=== PATIENT | male | born 1960 | race African-American/Black ===

== ENCOUNTER 2018-04-29 15:30 | Inpatient (IN) | payer MEDICAID ==
[~2018-04-29] VITALS: Ht 175.3 cm; Wt 130.7 kg
[2018-04-29] VITALS (11 sets, daily range): BP systolic 83–168; BP diastolic 45–71
[2018-04-29] MEDS ORDERED: Vancomycin 1.5gm/D5W 250ml 325 ML IVPB ONE (15:45)
[2018-04-29] MEDS ORDERED: Cefepime HCl 2 GM in NS 110 ML IV SCH (15:45)
[2018-04-29] MEDS ORDERED: PENTOXIFYLLINE400 MG ORAL (15:57)
[2018-04-29] MEDS ORDERED: ASCORBIC ACID500 M4 ORAL (15:57)
[2018-04-29] MEDS ORDERED: MAGNESIUM400 M2 PO (15:57)
[2018-04-29] MEDS ORDERED: NORCO 5-325 TA1 EACH ORAL (15:57)
[2018-04-29] MEDS ORDERED: LACTULOSE20 GM/301 ORAL (15:57)
[2018-04-29] MEDS ORDERED: FUROSEMIDE40 MG ORAL (15:57)
[2018-04-29] MEDS ORDERED: MULTIVITAMINS1 EAC2 ORAL (15:57)
[2018-04-29] MEDS ORDERED: ZINC SULFATE220 M1 ORAL (15:57)
[2018-04-29] MEDS ORDERED: BETA CAROT25000 UNIT PO (15:57)
[2018-04-29] MEDS ORDERED: SPIRONOLACTONE100 MG ORAL (15:57)
[2018-04-29 16:09] LABS: HEMATOCRIT 33.6 % (42.0-52.0); HEMOGLOBIN 11.1 G/DL (14.2-18.0); MEAN CORPUSCULAR VOLUME 93 FL (80-99); PLATELET COUNT 74 K/UL (150-450); RED BLOOD COUNT 3.61 M/UL (4.70-6.10); WHITE BLOOD COUNT 6.3 K/UL (4.8-10.8)
[2018-04-29 16:10] LABS: ANION GAP 16 mmol/L (5-15); BLOOD UREA NITROGEN 13 mg/dL (7-18); CALCIUM 8.6 MG/DL (8.5-10.1); CARBON DIOXIDE 17 MMOL/L (21-32); CHLORIDE 98 MMOL/L (98-107); CREATININE 1.4 MG/DL (0.55-1.30); POTASSIUM 3.7 MMOL/L (3.5-5.1); SODIUM 131 MMOL/L (136-145)
[2018-04-29 16:11] LABS: APPEARANCE,URINE CLEAR; BILIRUBIN, URINE 2+ (NEGATIVE); COLOR,URINE BROWN; GLUCOSE, URINE (UA) NEGATIVE (NEGATIVE); KETONES,URINE 2+ (NEGATIVE); LEUKOCYTE ESTERASE ,URINE 1+ (NEGATIVE); NITRITE,URINE POSITIVE (NEGATIVE); PH,URINE 5 (4.5-8.0); PROTEIN,URINE 1+ (NEGATIVE); UROBILINOGEN,URINE 8 MG/DL (0.0-1.0)
[2018-04-29 16:24] LABS: ALANINE AMINOTRANSFERASE 28 U/L (12-78); ALBUMIN 1.9 G/DL (3.4-5.0); ALBUMIN/GLOBULIN RATIO 0.4 (1.0-2.7); ALKALINE PHOSPHATASE 95 U/L (46-116); ASPARTATE AMINO TRANSFERASE 49 U/L (15-37); BILIRUBIN,TOTAL 12.6 MG/DL (0.2-1.0); CREATINE KINASE 223 U/L (26-308)
--- NOTE | 2018-04-29 16:25 | Diagnostic Imaging Report ---
Indication: Dyspnea Comparison: None A single view chest radiograph was obtained. Findings: Cardiomediastinal appearance is within normal limits for age and projection. Lung volumes are low. Pulmonary vascularity is appropriate. The diaphragmatic contour is smooth and costophrenic angles are sharp. No pleural effusions are identified. The bones are osteopenic. Impression: No acute findings
[2018-04-29 16:27] LABS: INR 2.6 (0.9-1.1)
[2018-04-29 16:28] LABS: BILIRUBIN,DIRECT 4.5 MG/DL (0.0-0.3)
[2018-04-29] MEDS ORDERED: Isovue-300 100ml vial INJ PRN (16:30)
[2018-04-29] MEDS ORDERED: NS IVLG ONE (16:30)
[2018-04-29] MEDS ORDERED: Isovue-370 150ml vial INJ PRN (16:30)
[2018-04-29] MEDS ORDERED: Etomidate 40mg/20ml Inj IV ONE (17:00)
[2018-04-29] MEDS ORDERED: Succinylcholine 20mg/ml 10ml vial IV ONE (17:00)
--- NOTE | 2018-04-29 17:35 | Emergency Room Report ---
History of Present Illness General Chief Complaint: Altered Level of Consciousness Source: Medical Record Present Illness HPI Mr. Avendaño is a 57 yo male with hx of alcohol cirrhosis, cellulitis, chronic leg wound, coagulopathy, anemia, hepatic encephalopathy and lactic acidosis who presents from a transitional care facililty with altered mental status. Patient has unintelligible repetitive speech. He will follow limited commands. Patient is not be able to give hx. Hx obtained from documentation from [facility]. Patient is from [place]. He was referred to [facility] for evaluation for liver transplant according to documentation. Allergies: Coded Allergies: No Known Allergies (Unverified , 04/29/18) Patient History Past Medical History: see triage record, old chart reviewed Past Surgical History: none, other - according to documentation Social History: Reports: alcohol use - last alcoholic drink August according to documentation Review of Systems All Other Systems: limited - altered mental status, patient is severely ill Physical Exam Vital Signs Date Time Temp Pulse Resp B/P (MAP) Pulse Ox O2 Delivery O2 Flow Rate FiO2 04/29/18 15:35 99.0 86 20 120/80 97 Room Air 99.0 04/29/18 16:55 50 Sp02 EP Interpretation: reviewed, normal General Appearance: severe distress, lethargic, other - toxic with severe work of breathing grunting, able to say name and only a few words, Stupor Eyes: bilateral eye PERRL, bilateral eye EOMI, bilateral eye scleral icterus ENT: normal pharynx, dry mucus membranes, other - harsh voice Neck: normal inspection, full range of motion, supple Respiratory: respiratory distress, decreased breath sounds, accessory muscle use - abdominal retractions Cardiovascular #1: no gallop, no murmur, tachycardia, edema - tense pitting edema 2+ Gastrointestinal: soft, no guarding, distended Musculoskeletal: other - capillary refill > 5 seconds Neurologic: oriented - oriented to name only, moves all extremities Psychiatric: other - delirious Skin: rash, other - several large ulcers right lower extremity with right lower leg erythematous Procedures Critical Care Time Critical Care Time 100 minutes of critical care time excluding procedures were used in the care of the patient. I reviewed labs and imaging. I reviewed previous electronic medical record.. I spoke with admitting physician. Patient required multiple reassessments and multiple interventions. Intubation Intubation : Consent: Emergent Intubation Method: orotracheal Tube Size (cm): 8.0 Medications: Etomidate, Succinylcholine Breath Sounds after Intubation: right greater than left Intubation Complications: O2 saturation decreased Post Intubation Xray: Yes Attempts: Other - two attempts, second attempt successful Patient Tolerated: Well Complications: Other - desaturation, Progress patient required ventilation with oral airway and BVM in between first and second attempt with glidoscope. Second attempt was successful Additional Procedure Procedure Narrative Nurse requested bolus of propofol. I personally administered 100 mg of diprivan for additional sedation on patient while intubated Medical Decision Making Diagnostic Impression: Primary Impression: Cellulitis Additional Impressions: Lactic acid acidosis Acute encephalopathy Acute respiratory failure without hypercapnia Cirrhosis of liver ER Course Mr. Avendaño presents with altered mental status and severe work of breathing. Required intubation after initial resuscitation attempt. 1. altered mental status with hx of hepatic encephaloplathy, ammonia level does not entirely account for severity of presentation, encephalopathy multifactorial with severe metabolic acidosis 2. lactic acidosis normal WBC, with previous hx. must consider sepsis and other causes such as severe liver dysfunction, brown stool on rectal exam, IVF given with caution with anasarca prior to intubation, I felt patient would be at high risk for pulmonary edema, total 3 liters given in ED with airway secured , Sepsis due to peritonitis? or HCAP 3. right leg cellulitis with chronic leg wound 4. cirrhosis, presumed alcoholic liver cirrhosis, jaundice, coagulopathy, anasarca, ascites, encephalopathy 5. infiltrative process on CXR and CT: patient covered for HCAP on arrival with broad spectrum abx possible aspiration I personally reviewed XR images, second XR with left sided infiltrate, CTA + infiltrate no PE CT head without acute process CT a/p:Cirrhosis with evidence of portal hypertension including splenomegaly and recanalized umbilical vein and esophageal varices. Large-volume ascites. Fluid also distends a left indirect inguinal hernia Dr. Oliva agreed to admit patient to ICU Labs Test 04/29/18 15:40 04/29/18 15:58 04/29/18 17:30 04/29/18 19:18 White Blood Count 6.3 K/UL (4.8-10.8) Red Blood Count 3.61 M/UL (4.70-6.10) Hemoglobin 11.1 G/DL (14.2-18.0) Hematocrit 33.6 % (42.0-52.0) Mean Corpuscular Volume 93 FL (80-99) Mean Corpuscular Hemoglobin 30.8 PG (27.0-31.0) Mean Corpuscular Hemoglobin Concent 33.2 G/DL (32.0-36.0) Red Cell Distribution Width 12.0 % (11.6-14.8) Platelet Count 74 K/UL (150-450) Mean Platelet Volume 6.8 FL (6.5-10.1) Neutrophils (%) (Auto) % (45.0-75.0) Lymphocytes (%) (Auto) % (20.0-45.0) Monocytes (%) (Auto) % (1.0-10.0) Eosinophils (%) (Auto) % (0.0-3.0) Basophils (%) (Auto) % (0.0-2.0) Differential Total Cells Counted 100 Neutrophils % (Manual) 63 % (45-75) Lymphocytes % (Manual) 15 % (20-45) Monocytes % (Manual) 6 % (1-10) Eosinophils % (Manual) 0 % (0-3) Basophils % (Manual) 0 % (0-2) Band Neutrophils 16 % (0-8) Platelet Estimate Decreased Platelet Morphology Normal Hypochromasia 1+ Anisocytosis 1+ Prothrombin Time 25.6 SEC (9.30-11.50) Prothromb Time International Ratio 2.6 (0.9-1.1) Activated Partial Thromboplast Time 51 SEC (23-33) Urine Color Brown Urine Appearance Clear Urine pH 5 (4.5-8.0) Urine Specific [place] 1.020 (1.005-1.035) Urine Protein 1+ (NEGATIVE) Urine Glucose (UA) Negative (NEGATIVE) Urine Ketones 2+ (NEGATIVE) Urine Blood 1+ (NEGATIVE) Urine Nitrite Positive (NEGATIVE) Urine Bilirubin 2+ (NEGATIVE) Urine Ictotest Positive (NEGATIVE) Urine Urobilinogen 8 MG/DL (0.0-1.0) Urine Leukocyte Esterase 1+ (NEGATIVE) Urine RBC 5-10 /HPF (0 - 0) Urine WBC 2-4 /HPF (0 - 0) Urine Squamous Epithelial Cells None /LPF (NONE/OCC) Urine Amorphous Sediment Few /LPF (NONE) Urine Bacteria Few /HPF (NONE) Sodium Level 131 MMOL/L (136-145) Potassium Level 3.7 MMOL/L (3.5-5.1) Chloride Level 98 MMOL/L (98-107) Carbon Dioxide Level 17 MMOL/L (21-32) Anion Gap 16 mmol/L (5-15) Blood Urea Nitrogen 13 mg/dL (7-18) Creatinine 1.4 MG/DL (0.55-1.30) Estimat Glomerular Filtration Rate > 60 mL/min (>60) Glucose Level 86 MG/DL (74-106) Lactic Acid Level 11.40 mmol/L (0.4-2.0) 13.50 mmol/L (0.66-2.22) Calcium Level 8.6 MG/DL (8.5-10.1) Total Bilirubin 12.6 MG/DL (0.2-1.0) Direct Bilirubin 4.5 MG/DL (0.0-0.3) Aspartate Amino Transf (AST/SGOT) 49 U/L (15-37) Alanine Aminotransferase (ALT/SGPT) 28 U/L (12-78) Alkaline Phosphatase 95 U/L (46-116) Ammonia 61 umol/L (11-32) Total Creatine Kinase 223 U/L (26-308) Troponin I 0.034 ng/mL (0.000-0.056) Total Protein 7.0 G/DL (6.4-8.2) Albumin 1.9 G/DL (3.4-5.0) Globulin 5.1 g/dL Albumin/Globulin Ratio 0.4 (1.0-2.7) Arterial Blood pH 7.420 (7.350-7.450) 7.287 (7.350-7.450) Arterial Blood Partial Pressure CO2 21.7 mmHg (35.0-45.0) 34.6 mmHg (35.0-45.0) Arterial Blood Partial Pressure O2 74.7 mmHg (75.0-100.0) 96.6 mmHg (75.0-100.0) Arterial Blood HCO3 13.8 mmol/L (22.0-26.0) 16.2 mmol/L (22.0-26.0) Arterial Blood Oxygen Saturation 94.6 % (92.0-98.0) 96.5 % (92.0-98.0) Arterial Blood Base Excess -8.8 -9.5 Johan Test Positive Positive Triglycerides Level 41 MG/DL (30-150) EKG Diagnostic Results EKG Time: 15:28 EP Interpretation: sinus tachyardia nl axis prolonged QTc no ST elevation low QRS voltage Rate: tachycardiac Other Impression no ST elevation no signficant Q waves Chest X-Ray Diagnostic Results Chest X-Ray Diagnostic Results : Chest X-Ray Ordered: Yes # of Views/Limited/Complete: 1 View Indication: Shortness of Breath EP Interpretation: Yes Interpretation: no consolidation, no pneumothorax Impression: Other - poor inspiratory effort Electronically Signed by: This image has been electronically signed by Dr. Es Elise Last Vital Signs Date Time Temp Pulse Resp B/P (MAP) Pulse Ox O2 Delivery O2 Flow Rate FiO2 04/29/18 17:14 144 16 50 04/29/18 17:13 178/86 Mechanical Ventilator 04/29/18 16:00 99.9 100 99.9 Disposition: ADMITTED INPATIENT Condition: Serious Referrals: NOT CHOSEN IPA/,REFERRING (PCP) Es Elise MD Apr 29, 2018 17:35
[2018-04-29] MEDS ORDERED: MULTIVITAMINS1 EA13 ORAL (17:49)
--- NOTE | 2018-04-29 18:03 | Diagnostic Imaging Report ---
EXAM: XR Chest, 1 View CLINICAL HISTORY: SOB TECHNIQUE: Frontal view of the chest. COMPARISON: 05/09/18 at 1549. FINDINGS/IMPRESSION: Interval intubation. The tip of the ET tube projects 2 cm above the pamela. Hypoventilatory lungs with worsening left greater than right perihilar and basilar airspace consolidation.
--- NOTE | 2018-04-29 19:23 | Diagnostic Imaging Report ---
EXAM: CT Angiography Chest With Intravenous Contrast CLINICAL HISTORY: ALOC TECHNIQUE: Axial computed tomographic angiography images of the chest with intravenous contrast using pulmonary embolism protocol. CTDI is 40.33 mGy and DLP is 957.93 mGy-cm One or more of the following dose reduction techniques were used: automated exposure control, adjustment of the mA and/or kV according to patient size, use of iterative reconstruction technique. MIP reconstructed images were created and reviewed. COMPARISON: No relevant prior studies available. FINDINGS: Poor bolus timing. No definite central PE. No aortic dissection. The endotracheal tube tip projects 1.5 cm above the pamela. Extensive lower lobe consolidation and trace pleural effusions. Cardiomegaly with coronary atherosclerosis. Body wall edema/anasarca. Upper abdominal findings described in separate CT abdomen and pelvis report. IMPRESSION: No clear central PE on technically limited study. Extensive basilar consolidation. Tip of ET tube projects 1.5 cm above the pamela Cardiomegaly and CAD.
[2018-04-29] MEDS ORDERED: Propofol 200mg/20ml IV ONE (19:30)
--- NOTE | 2018-04-29 19:39 | Diagnostic Imaging Report ---
EXAM: CT Abdomen and Pelvis With Intravenous Contrast CLINICAL HISTORY: ALOC TECHNIQUE: Axial computed tomography images of the abdomen and pelvis with intravenous contrast. CTDI is 19.95 mGy and DLP is 1535 mGy-cm One or more of the following dose reduction techniques were used: automated exposure control, adjustment of the mA and/or kV according to patient size, use of iterative reconstruction technique. COMPARISON: No relevant prior studies available. FINDINGS: Chest findings described in separate report. Cirrhosis with evidence of portal hypertension including splenomegaly and recanalized umbilical vein and esophageal varices. Large-volume ascites. Fluid also distends a left indirect inguinal hernia. Colonic diverticula. No definitive findings of diverticulitis, though free fluid markedly limits sensitivity. No GI or urinary tract obstruction. Suspect a normal appendix. Aortoiliac atherosclerosis without aneurysm. Body wall edema/anasarca. No acute fracture. IMPRESSION: Cirrhosis with evidence of portal hypertension. Large-volume ascites. Colonic diverticula. Exam is insensitive for acute inflammation due to ascites and generalized edema/anasarca.
--- NOTE | 2018-04-29 20:21 | Diagnostic Imaging Report ---
EXAM: CT Head Without Intravenous Contrast CLINICAL HISTORY: ALOC TECHNIQUE: Axial computed tomography images of the head/brain without intravenous contrast. CTDI is 70.38 mGy and DLP is 2//04 mGy-cm One or more of the following dose reduction techniques were used: automated exposure control, adjustment of the mA and/or kV according to patient size, use of iterative reconstruction technique. COMPARISON: No relevant prior studies available. FINDINGS: Brain: Examination is somewhat limited by motion. There is no clear evidence of acute intracranial hemorrhage. No mass effect. No definite acute large vessel territorial infarction. Mild involutional change. Ventricles: Unremarkable. No ventriculomegaly. Bones/joints: Unremarkable. No acute fracture. Soft tissues: Unremarkable. Sinuses: Unremarkable as visualized. No acute sinusitis. Mastoid air cells: Unremarkable as visualized. No mastoid effusion. IMPRESSION: No acute intracranial process on motion limited exam.
--- NOTE | 2018-04-29 21:59 | History and Physical ---
History of Present Illness General Date patient seen: Apr 29, 2018 Time patient seen: 23:00 Reason for Hospitalization: Sepsis, acute encephalopahy, acute respiratory failure Present Illness HPI 57 yo man with a history of alcohol cirrhosis, cellulitis, chronic leg wound, coagulopathy, anemia, and hepatic encephalopathy and lactic acidosis who presents from a transitional care facililty with altered mental status. Patient has unintelligible repetitive speech. He will follow limited commands. Patient is not be able to give history. Medical history obtained from ED physician and documentation from [facility]. Patient is from [place]. He was referred to [facility] for evaluation for liver transplant according to documentation in ED, patient became progressively somnolent and obtunded and was intubated for acute respiratory failure He was hypotensive requiring several liters of IVF's Admitted to the ICU PMHx: As per HPI FHx: Unable to assess secondary to patient's condition SHx: + EtOH abuse; patient from [place] lives in transitional care facility Allergies: Coded Allergies: No Known Allergies (Unverified , 04/29/18) Medication History Scheduled Ascorbic Acid* (Ascorbic Acid*), 500 MG ORAL DAILY, (Reported) Furosemide* (Lasix*), 40 MG ORAL DAILY, (Reported) Multivitamin with Minerals (Multivitamins with Minerals), 1 TAB ORAL DAILY, ( Reported) Spironolactone* (Spironolactone*), 25 MG ORAL DAILY, (Reported) Zinc Sulfate (Zinc Sulfate*), 220 MG ORAL DAILY, (Reported) Scheduled PRN Hydrocodone Bit/Acetaminophen 5-325* (Harshaw 5-325*), 1 TAB ORAL Q6H PRN for For Pain, (Reported) Miscellaneous Medications Beta-Carotene (Beta Carotene), 25,000 UNIT PO, (Reported) Lactulose (Lactulose*), 30 ML ORAL, (Reported) Magnesium Oxide (Magnesium), 400 MG PO, (Reported) Pentoxifylline* (Trental*), 400 MG ORAL, (Reported) Discontinued Medications Multivitamins* (Multivitamins*), 1 TAB ORAL DAILY, (Reported) Discontinued Reason: Prescription changed Patient History Limited by: medical condition History Provided By: Medical Record, PMD Healthcare decision maker none listed Resuscitation status Full Code Advanced Directive on File No Review of Systems ROS Narrative Unable secondary to patient's condition Physical Exam General Appearance: severe distress Lines, tubes and drains: peripheral HEENT: normocephalic, atraumatic Neck: supple Respiratory/Chest: rhonchi - bilaterally Cardiovascular/Chest: tachycardia Abdomen: distended Extremities: inflammation, slow capillary refill Skin Exam: cyanotic, palled Neurologic: unresponsiveness Lymphatic: anterior cervical, posterior cervical (L) Musculoskeletal: atrophy Last 24 Hour Vital Signs Date Time Temp Pulse Resp B/P (MAP) Pulse Ox O2 Delivery O2 Flow Rate FiO2 04/29/18 21:05 117 28 50 04/29/18 20:50 122 04/29/18 20:49 50 04/29/18 20:47 99.6 122 22 90/50 (63) 97 99.6 04/29/18 20:40 98.0 135 25 94/52 100 Mechanical Ventilator 50 04/29/18 19:54 24 89/47 Mechanical Ventilator 50 04/29/18 19:52 125 33 83/47 94 Mechanical Ventilator 50 04/29/18 19:40 24 94/51 Mechanical Ventilator 50 04/29/18 19:38 32 Mechanical Ventilator 50 04/29/18 19:25 24 152/83 Mechanical Ventilator 50 04/29/18 19:10 24 132/67 Mechanical Ventilator 50 04/29/18 19:04 144 38 50 04/29/18 19:00 140 25 136/64 90 Mechanical Ventilator 50 04/29/18 18:55 24 138/64 Mechanical Ventilator 50 04/29/18 18:28 24 155/75 Mechanical Ventilator 50 04/29/18 18:13 24 165/82 Mechanical Ventilator 04/29/18 18:00 99.9 140 25 168/71 100 Mechanical Ventilator 50 99.9 04/29/18 17:58 24 168/71 Mechanical Ventilator 04/29/18 17:43 25 167/83 Mechanical Ventilator 04/29/18 17:28 25 173/80 Mechanical Ventilator 04/29/18 17:14 144 16 50 04/29/18 17:13 25 178/86 Mechanical Ventilator 50 04/29/18 16:55 50 04/29/18 16:00 99.9 129 26 126/68 100 Room Air 99.9 04/29/18 15:35 99.0 86 20 120/80 97 Room Air 99.0 Laboratory Tests Test 04/29/18 15:40 04/29/18 15:58 04/29/18 17:30 04/29/18 19:18 White Blood Count 6.3 K/UL (4.8-10.8) Red Blood Count 3.61 M/UL (4.70-6.10) L Hemoglobin 11.1 G/DL (14.2-18.0) L Hematocrit 33.6 % (42.0-52.0) L Mean Corpuscular Volume 93 FL (80-99) Mean Corpuscular Hemoglobin 30.8 PG (27.0-31.0) Mean Corpuscular Hemoglobin Concent 33.2 G/DL (32.0-36.0) Red Cell Distribution Width 12.0 % (11.6-14.8) Platelet Count 74 K/UL (150-450) L Mean Platelet Volume 6.8 FL (6.5-10.1) Neutrophils (%) (Auto) % (45.0-75.0) Lymphocytes (%) (Auto) % (20.0-45.0) Monocytes (%) (Auto) % (1.0-10.0) Eosinophils (%) (Auto) % (0.0-3.0) Basophils (%) (Auto) % (0.0-2.0) Differential Total Cells Counted 100 Neutrophils % (Manual) 63 % (45-75) Lymphocytes % (Manual) 15 % (20-45) L Monocytes % (Manual) 6 % (1-10) Eosinophils % (Manual) 0 % (0-3) Basophils % (Manual) 0 % (0-2) Band Neutrophils 16 % (0-8) H Platelet Estimate Decreased L Platelet Morphology Normal Hypochromasia 1+ Anisocytosis 1+ Prothrombin Time 25.6 SEC (9.30-11.50) H Prothromb Time International Ratio 2.6 (0.9-1.1) H Activated Partial Thromboplast Time 51 SEC (23-33) H Urine Color Brown Urine Appearance Clear Urine pH 5 (4.5-8.0) Urine Specific [place] 1.020 (1.005-1.035) Urine Protein 1+ (NEGATIVE) H Urine Glucose (UA) Negative (NEGATIVE) Urine Ketones 2+ (NEGATIVE) H Urine Blood 1+ (NEGATIVE) H Urine Nitrite Positive (NEGATIVE) H Urine Bilirubin 2+ (NEGATIVE) H Urine Ictotest Positive (NEGATIVE) Urine Urobilinogen 8 MG/DL (0.0-1.0) H Urine Leukocyte Esterase 1+ (NEGATIVE) H Urine RBC 5-10 /HPF (0 - 0) H Urine WBC 2-4 /HPF (0 - 0) Urine Squamous Epithelial Cells None /LPF (NONE/OCC) Urine Amorphous Sediment Few /LPF (NONE) H Urine Bacteria Few /HPF (NONE) Sodium Level 131 MMOL/L (136-145) L Potassium Level 3.7 MMOL/L (3.5-5.1) Chloride Level 98 MMOL/L (98-107) Carbon Dioxide Level 17 MMOL/L (21-32) L Anion Gap 16 mmol/L (5-15) H Blood Urea Nitrogen 13 mg/dL (7-18) Creatinine 1.4 MG/DL (0.55-1.30) H Estimat Glomerular Filtration Rate > 60 mL/min (>60) Glucose Level 86 MG/DL (74-106) Lactic Acid Level 11.40 mmol/L (0.4-2.0) H 13.50 mmol/L (0.66-2.22) H Calcium Level 8.6 MG/DL (8.5-10.1) Total Bilirubin 12.6 MG/DL (0.2-1.0) H Direct Bilirubin 4.5 MG/DL (0.0-0.3) H Aspartate Amino Transf (AST/SGOT) 49 U/L (15-37) H Alanine Aminotransferase (ALT/SGPT) 28 U/L (12-78) Alkaline Phosphatase 95 U/L (46-116) Ammonia 61 umol/L (11-32) H Total Creatine Kinase 223 U/L (26-308) Troponin I 0.034 ng/mL (0.000-0.056) Total Protein 7.0 G/DL (6.4-8.2) Albumin 1.9 G/DL (3.4-5.0) L Globulin 5.1 g/dL Albumin/Globulin Ratio 0.4 (1.0-2.7) L Urine Opiates Screen Negative (NEGATIVE) Urine Barbiturates Screen Negative (NEGATIVE) Phencyclidine (PCP) Screen Negative (NEGATIVE) Urine Amphetamines Screen Negative (NEGATIVE) Urine Benzodiazepines Screen Negative (NEGATIVE) Urine Cocaine Screen Negative (NEGATIVE) Urine Marijuana (THC) Screen Negative (NEGATIVE) Arterial Blood pH 7.420 (7.350-7.450) 7.287 (7.350-7.450) Arterial Blood Partial Pressure CO2 21.7 mmHg (35.0-45.0) *L 34.6 mmHg (35.0-45.0) L Arterial Blood Partial Pressure O2 74.7 mmHg (75.0-100.0) L 96.6 mmHg (75.0-100.0) Arterial Blood HCO3 13.8 mmol/L (22.0-26.0) L 16.2 mmol/L (22.0-26.0) L Arterial Blood Oxygen Saturation 94.6 % (92.0-98.0) 96.5 % (92.0-98.0) Arterial Blood Base Excess -8.8 -9.5 Johan Test Positive Positive Triglycerides Level 41 MG/DL (30-150) Height (Feet): 5 Height (Inches): 9.00 Weight (Pounds): 296 Medications Current Medications Medications (Trade) Dose Ordered Sig/Ry Route PRN Reason Start Time Stop Time Status Last Admin Dose Admin Barium Sulfate (Readi-Cat 2) 450 ml NOW PRN ORAL Radiology Procedure 04/29/18 16:30 05/01/18 16:22 Cefepime HCl 2 gm/ Sodium Chloride 110 ml @ 220 mls/hr Q8H IV 04/29/18 15:45 04/30/18 15:44 04/29/18 16:09 Iopamidol (Isovue-300 100ml) 100 ml NOW PRN INJ Radiology Procedure 04/29/18 16:30 Iopamidol (Isovue-370 150ml) 150 ml NOW PRN INJ Radiology Procedure 04/29/18 16:30 05/01/18 16:23 Levofloxacin 150 ml @ 150 mls/hr Q24H IV 04/29/18 15:45 04/30/18 15:44 04/29/18 17:43 Pantoprazole (Protonix) 40 mg DAILY IVP 04/30/18 09:00 05/30/18 08:59 UNV Propofol 100 ml @ 0 mls/hr Q24H IV 04/29/18 17:00 05/01/18 16:59 04/29/18 17:13 Assessment/Plan Status: deteriorating Status Narrative 57 yo man with decompensated cirrhosis and septic shock with acute respiratory failure Assessment/Plan #Septic Shock/severe sepsis- with acute encephalopathy, acute kidney failure and acute respiratory failure #suspect SBP # Cellulitis possible source -Lactic acid elevated; BP decreased -Aggressive IVF's -Pulmonary consult -Continue broad spectrum IV antibiotics -ID consult #Cirrhosis, decompensated #End stage liver disease #coagulopathy -Gastroenterology consult -paracentesis with peritoneal fluid analysis #[id number] -Likely secondary to sepsis/hypovolemia -continue IVF's #acute encephalopathy -Likely secondary to septic shock -On propofol currently given intubation DVT Prophylaxis: SCD's Code Status: Full Hospital Classification declaration: Based on this initial evaluation and depending on the patient's clinical course I anticipate that this patient will require hospitalization for at least 2-3 days Disposition: Once the patient is stable to leave the hospital I anticipate the patient will likely be discharged to the following environment: Home I have personally performed a history, physical exam, and my own medical decision making. Upon my evaluation, this patient had a high probability of imminent or life- threatening deterioration due to severe sepsis and acute respiratory failure, which required my direct attention, intervention, and personal management. I have personally provided 50 minutes of critical care time exclusive of time spent on separately billable procedures. Time includes review of laboratory data , radiology results, discussion with consultants, and monitoring for potential decompensation. Interventions were performed as documented above. Time of note may not reflect time of encounter Jax Oliva MD Apr 29, 2018 21:59
[2018-04-30] VITALS (32 sets, daily range): BP systolic 84–145; BP diastolic 39–91
[2018-04-30] MEDS ORDERED: Cefepime HCl 2 GM in D5W 55 ML IVPB SCH (04:00)
[2018-04-30] MEDS ORDERED: Vancomycin 1500mg IVPB SCH (04:00)
[2018-04-30 05:12] LABS: HEMATOCRIT 27.4 % (42.0-52.0); HEMOGLOBIN 9.6 G/DL (14.2-18.0); MEAN CORPUSCULAR VOLUME 94 FL (80-99); PLATELET COUNT 59 K/UL (150-450); RED BLOOD COUNT 2.91 M/UL (4.70-6.10); RED CELL DISTRIBUTION WIDTH 12.5 % (11.6-14.8); WHITE BLOOD COUNT 7.8 K/UL (4.8-10.8)
[2018-04-30 05:49] LABS: ALANINE AMINOTRANSFERASE 27 U/L (12-78); ALBUMIN 1.6 G/DL (3.4-5.0); ALBUMIN/GLOBULIN RATIO 0.4 (1.0-2.7); ALKALINE PHOSPHATASE 54 U/L (46-116); ANION GAP 15 mmol/L (5-15); ASPARTATE AMINO TRANSFERASE 56 U/L (15-37); BLOOD UREA NITROGEN 17 mg/dL (7-18); CARBON DIOXIDE 18 MMOL/L (21-32); CHLORIDE 100 MMOL/L (98-107); CREATININE 1.4 MG/DL (0.55-1.30); POTASSIUM 3.7 MMOL/L (3.5-5.1); SODIUM 133 MMOL/L (136-145)
[2018-04-30 05:52] LABS: BILIRUBIN,DIRECT 5.9 MG/DL (0.0-0.3)
[2018-04-30] MEDS: D5 1/2NS 1,000 ML IV SCH ×2 (09:06→19:00)
[2018-04-30] MEDS: Vancomycin 1500mg IVPB SCH ×2 (09:07→20:40)
[2018-04-30] MEDS: Pantoprazole Inj IVP SCH (09:07)
--- NOTE | 2018-04-30 10:27 | General Progress Note ---
Assessment/Plan Assessment/Plan GI CONSULT Assessment - Cirrhosis - portal HTN / varicies - presumed EtOH hepatitis - coagulopathy - ascites - sepsis, r/o SBP - Resp failure - AMS, likely hepatic encephalopathy - hypoglycemia - guarded Recommendations - NGT - placed by GI --> bilious return - restart lactulose and Trental - begin TF - follow labs - paracentesis - broad abx - PPI - wean off of vent and propofol - check AFP - vitamin K Thank you P MD Es Subjective Allergies: Coded Allergies: No Known Allergies (Unverified , 04/29/18) Objective Last 24 Hour Vital Signs Date Time Temp Pulse Resp B/P (MAP) Pulse Ox O2 Delivery O2 Flow Rate FiO2 04/30/18 09:00 126 30 114/51 (72) 99 04/30/18 08:36 128 37 50 04/30/18 08:00 50 04/30/18 08:00 127 04/30/18 08:00 Mechanical Ventilator 04/30/18 08:00 99.2 116 27 88/40 (56) 98 99.2 04/30/18 07:00 117 30 112/65 (81) 99 04/30/18 07:00 30 112/59 Mechanical Ventilator 50 04/30/18 06:46 127 37 50 04/30/18 06:00 130 32 121/91 (101) 96 04/30/18 06:00 31 121/91 Mechanical Ventilator 50 04/30/18 05:24 125 31 50 04/30/18 05:00 122 32 94/47 (63) 98 04/30/18 05:00 30 94/47 Mechanical Ventilator 50 04/30/18 04:50 26 92/41 50 04/30/18 04:00 50 04/30/18 04:00 98.3 121 32 101/54 (70) 98 98.3 04/30/18 04:00 33 101/54 Mechanical Ventilator 50 04/30/18 04:00 118 04/30/18 04:00 Mechanical Ventilator 04/30/18 03:00 120 32 97/43 (61) 98 04/30/18 03:00 31 97/43 Mechanical Ventilator 50 04/30/18 02:56 124 33 50 04/30/18 02:30 130 32 145/73 (97) 97 04/30/18 02:00 124 32 115/54 (74) 96 18 02:00 33 115/54 Mechanical Ventilator 50 18 01:30 117 32 84/45 (58) 97 818 01:00 120 32 96/46 (63) 98 818 01:00 30 96/46 Mechanical Ventilator 50 818 00:48 133 29 50 818 00:30 131 32 137/56 (83) 97 04/30/18 00:00 98.4 127 32 109/69 (82) 96 98.4 04/30/18 00:00 Mechanical Ventilator 04/30/18 00:00 32 109/69 Mechanical Ventilator 50 18 23:30 118 32 97/50 (66) 99 04/29/18 23:00 29 92/47 Mechanical Ventilator 50 04/29/18 23:00 118 32 92/47 (62) 98 /18 22:47 121 30 50 04/29/18 22:30 121 32 98/54 (69) 98 18 22:00 124 32 96/53 (67) 97 18 22:00 30 98/54 Mechanical Ventilator 50 04/29/18 21:30 119 32 102/45 (64) 98 04/29/18 21:05 117 28 50 04/29/18 21:00 120 30 88/49 (62) 98 04/29/18 20:50 122 //18 20:49 50 04/29/18 20:47 99.6 122 22 90/50 (63) 97 99.6 04/29/18 20:46 Mechanical Ventilator 04/29/18 20:40 98.0 135 25 94/52 100 Mechanical Ventilator 50 18 19:54 24 89/47 Mechanical Ventilator 50 18 19:52 125 33 83/47 94 Mechanical Ventilator 50 18 19:40 24 94/51 Mechanical Ventilator 50 18 19:38 32 Mechanical Ventilator 50 18 19:25 24 152/83 Mechanical Ventilator 50 04/29/18 19:10 24 132/67 Mechanical Ventilator 50 04/29/18 19:04 144 38 50 04/29/18 19:00 140 25 136/64 90 Mechanical Ventilator 50 18 18:55 24 138/64 Mechanical Ventilator 50 04/29/18 18:28 24 155/75 Mechanical Ventilator 50 04/29/18 18:13 24 165/82 Mechanical Ventilator 04/29/18 18:00 99.9 140 25 168/71 100 Mechanical Ventilator 50 99.9 04/29/18 17:58 24 168/71 Mechanical Ventilator 04/29/18 17:43 25 167/83 Mechanical Ventilator 04/29/18 17:28 25 173/80 Mechanical Ventilator 04/29/18 17:14 144 16 50 04/29/18 17:13 25 178/86 Mechanical Ventilator 50 04/29/18 16:55 50 04/29/18 16:00 99.9 129 26 126/68 100 Room Air 99.9 04/29/18 15:35 99.0 86 20 120/80 97 Room Air 99.0 Intake and Output 04/29/18 04/30/18 19:00 07:00 Intake Total 731.046 ml Output Total 100 ml 470 ml Balance -100 ml 261.046 ml Intake Oral 0 ml IV Total 731.046 ml Output Urine Total 100 ml 470 ml # Bowel Movements 3 Laboratory Tests 04/29/18 15:40: White Blood Count 6.3, Red Blood Count 3.61L, Hemoglobin 11.1L, Hematocrit 33.6L , Mean Corpuscular Volume 93, Mean Corpuscular Hemoglobin 30.8, Mean Corpuscular Hemoglobin Concent 33.2, Red Cell Distribution Width 12.0, Platelet Count 74L, Mean Platelet Volume 6.8, Neutrophils (%) (Auto) , Lymphocytes (%) ( Auto) , Monocytes (%) (Auto) , Eosinophils (%) (Auto) , Basophils (%) (Auto) , Differential Total Cells Counted 100, Neutrophils % (Manual) 63, Lymphocytes % ( Manual) 15L, Monocytes % (Manual) 6, Eosinophils % (Manual) 0, Basophils % ( Manual) 0, Band Neutrophils 16H, Platelet Estimate DecreasedL, Platelet Morphology Normal, Hypochromasia 1+, Anisocytosis 1+, Prothrombin Time 25.6H, Prothromb Time International Ratio 2.6H, Activated Partial Thromboplast Time 51H , Urine Color Brown, Urine Appearance Clear, Urine pH 5, Urine Specific [place] 1.020, Urine Protein 1+H, Urine Glucose (UA) Negative, Urine Ketones 2+H, Urine Blood 1+H, Urine Nitrite PositiveH, Urine Bilirubin 2+H, Urine Ictotest Positive , Urine Urobilinogen 8H, Urine Leukocyte Esterase 1+H, Urine RBC 5-10H, Urine WBC 2-4, Urine Squamous Epithelial Cells None, Urine Amorphous Sediment FewH, Urine Bacteria Few, Sodium Level 131L, Potassium Level 3.7, Chloride Level 98, Carbon Dioxide Level 17L, Anion Gap 16H, Blood Urea Nitrogen 13, Creatinine 1.4H , Estimat Glomerular Filtration Rate > 60, Glucose Level 86, Lactic Acid Level 11.40H, Calcium Level 8.6, Total Bilirubin 12.6H, Direct Bilirubin 4.5H, Aspartate Amino Transf (AST/SGOT) 49H, Alanine Aminotransferase (ALT/SGPT) 28, Alkaline Phosphatase 95, Ammonia 61H, Total Creatine Kinase 223, Troponin I 0.034, Total Protein 7.0, Albumin 1.9L, Globulin 5.1, Albumin/Globulin Ratio 0.4L, Urine Opiates Screen Negative, Urine Barbiturates Screen Negative, Phencyclidine (PCP) Screen Negative, Urine Amphetamines Screen Negative, Urine Benzodiazepines Screen Negative, Urine Cocaine Screen Negative, Urine Marijuana (THC) Screen Negative 04/29/18 15:58: Arterial Blood pH 7.420, Arterial Blood Partial Pressure CO2 21.7*L, Arterial Blood Partial Pressure O2 74.7L, Arterial Blood HCO3 13.8L, Arterial Blood Oxygen Saturation 94.6, Arterial Blood Base Excess -8.8, Johan Test Positive 04/29/18 17:30: Lactic Acid Level 13.50H, Triglycerides Level 41 04/29/18 19:18: Arterial Blood pH 7.287L, Arterial Blood Partial Pressure CO2 34.6L, Arterial Blood Partial Pressure O2 96.6, Arterial Blood HCO3 16.2L, Arterial Blood Oxygen Saturation 96.5, Arterial Blood Base Excess -9.5, Johan Test Positive 04/29/18 23:35: Lactic Acid Level 11.10H 04/30/18 04:00: Lactic Acid Level 10.30H, White Blood Count 7.8, Red Blood Count 2.91L, Hemoglobin 9.6L, Hematocrit 27.4L, Mean Corpuscular Volume 94, Mean Corpuscular Hemoglobin 32.9H, Mean Corpuscular Hemoglobin Concent 34.9, Red Cell Distribution Width 12.5, Platelet Count 59L, Mean Platelet Volume 7.3, Neutrophils (%) (Auto) , Lymphocytes (%) (Auto) , Monocytes (%) (Auto) , Eosinophils (%) (Auto) , Basophils (%) (Auto) , Neutrophils % (Manual) [Pending] , Lymphocytes % (Manual) [Pending], Platelet Estimate [Pending], Platelet Morphology [Pending], Sodium Level 133L, Potassium Level 3.7, Chloride Level 100 , Carbon Dioxide Level 18L, Anion Gap 15, Blood Urea Nitrogen 17, Creatinine 1.4H, Estimat Glomerular Filtration Rate > 60, Glucose Level 40L, Calcium Level 8.0L, Total Bilirubin 11.0H, Direct Bilirubin 5.9H, Aspartate Amino Transf (AST/ SGOT) 56H, Alanine Aminotransferase (ALT/SGPT) 27, Alkaline Phosphatase 54, Total Protein 6.0L, Albumin 1.6L, Globulin 4.4, Albumin/Globulin Ratio 0.4L, Triglycerides Level 54 04/30/18 07:08: Arterial Blood pH 7.347L, Arterial Blood Partial Pressure CO2 29.5L, Arterial Blood Partial Pressure O2 81.8, Arterial Blood HCO3 15.8L, Arterial Blood Oxygen Saturation 95.1, Arterial Blood Base Excess -8.7, Johan Test Positive 04/30/18 09:15: Lactic Acid Level 8.70H Height (Feet): 5 Height (Inches): 9.00 Weight (Pounds): 295 Pierre Suggs MD Apr 30, 2018 10:27
[2018-04-30] MEDS ORDERED: Phytonadione 10 mg/mL 1ml amp SUBQ SCH (10:29)
--- NOTE | 2018-04-30 11:45 | Diagnostic Imaging Report ---
INDICATION: Nasogastric tube COMPARISON: None FINDINGS: Two views of the abdomen demonstrates a normal bowel gas pattern. Nasogastric tube with tip below the diaphragm in the gastric cavity. No evidence of organomegaly, abnormal calcifications or obvious soft tissue masses. The osseous structures are intact. IMPRESSION: Nasogastric tube with tip below diaphragm in the gastric cavity.
[2018-04-30] MEDS: Lactulose 20gm/30ml UDC NG SCH ×2 (13:24→18:25)
[2018-04-30] MEDS: LORazepam Inj 2mg/ml 1ml IV PRN (14:14)
--- NOTE | 2018-04-30 15:10 | Pulmonolgy Critical Care Note ---
Critical Care - Asmt/Plan Problems: (1) Acute kidney failure (2) Hyperbilirubinemia (3) Shock, septic (4) Cellulitis (5) Cirrhosis of liver (6) Lactic acid acidosis (7) Acute encephalopathy (8) Altered mental state (9) Acute respiratory failure without hypercapnia Respiratory: monitor respiratory rate, adjust FIO2 - Titrate down FiO2 to keep SaO2 > 90%, ABG - monitor gas exchange Cardiac: start pressors - start peripheral DA, place CVC (2 MD consent obtained ) then start NE, other - F/U TTE, trend LA and trop Renal: F/U I&O, keep IV fluid - change IVF to D5NS@ 150 Infectious Disease: check cultures, continue antibiotics - Carlos Manuel & Vanco + one dose of Amikacin per ID Gastrointestinal: hold feedings, other - F/U GI recs, consider PARA Endocrine: check TSH, check HgA1C, other - check cortisol Hematologic: monitor H/H, other - Monitor platelets, transfuse PRN Neurologic: other - Versed 2 mg IV q2 PRN Time Spent (Minutes): 70 Notes 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, ID Discussed with: nurses, consultants Critical Care - Objective Last 24 Hour Vital Signs Date Time Temp Pulse Resp B/P (MAP) Pulse Ox O2 Delivery O2 Flow Rate FiO2 04/30/18 14:53 116 25 35 04/30/18 14:33 111 04/30/18 14:00 128 35 112/59 (76) 94 04/30/18 13:00 125 32 125/60 (81) 95 04/30/18 12:42 116 24 40 04/30/18 12:00 40 04/30/18 12:00 Mechanical Ventilator 04/30/18 12:00 127 04/30/18 12:00 114 27 87/42 (57) 98 04/30/18 11:00 115 26 87/40 (56) 98 04/30/18 10:55 117 25 45 04/30/18 10:00 127 34 120/57 (78) 95 04/30/18 09:00 126 30 114/51 (72) 99 04/30/18 08:36 128 37 50 04/30/18 08:00 50 04/30/18 08:00 127 04/30/18 08:00 Mechanical Ventilator 04/30/18 08:00 99.2 116 27 88/40 (56) 98 99.2 04/30/18 07:00 117 30 112/65 (81) 99 04/30/18 07:00 30 112/59 Mechanical Ventilator 50 04/30/18 06:46 127 37 50 04/30/18 06:00 130 32 121/91 (101) 96 04/30/18 06:00 31 121/91 Mechanical Ventilator 50 04/30/18 05:24 125 31 50 04/30/18 05:00 122 32 94/47 (63) 98 04/30/18 05:00 30 94/47 Mechanical Ventilator 50 04/30/18 04:50 26 92/41 50 04/30/18 04:00 50 04/30/18 04:00 98.3 121 32 101/54 (70) 98 98.3 04/30/18 04:00 33 101/54 Mechanical Ventilator 50 04/30/18 04:00 118 04/30/18 04:00 Mechanical Ventilator 04/30/18 03:00 120 32 97/43 (61) 98 04/30/18 03:00 31 97/43 Mechanical Ventilator 50 04/30/18 02:56 124 33 50 04/30/18 02:30 130 32 145/73 (97) 97 04/30/18 02:00 124 32 115/54 (74) 96 04/30/18 02:00 33 115/54 Mechanical Ventilator 50 04/30/18 01:30 117 32 84/45 (58) 97 04/30/18 01:00 120 32 96/46 (63) 98 04/30/18 01:00 30 96/46 Mechanical Ventilator 50 04/30/18 00:48 133 29 50 04/30/18 00:30 131 32 137/56 (83) 97 04/30/18 00:00 98.4 127 32 109/69 (82) 96 98.4 04/30/18 00:00 Mechanical Ventilator 04/30/18 00:00 32 109/69 Mechanical Ventilator 50 04/29/18 23:30 118 32 97/50 (66) 99 04/29/18 23:00 29 92/47 Mechanical Ventilator 50 04/29/18 23:00 118 32 92/47 (62) 98 04/29/18 22:47 121 30 50 04/29/18 22:30 121 32 98/54 (69) 98 9/7/18 22:00 124 32 96/53 (67) 97 18 22:00 30 98/54 Mechanical Ventilator 50 18 21:30 119 32 102/45 (64) 98 18 21:05 117 28 50 918 21:00 120 30 88/49 (62) 98 18 20:50 122 04/29/18 20:49 50 18 20:47 99.6 122 22 90/50 (63) 97 99.6 04/29/18 20:46 Mechanical Ventilator 04/29/18 20:40 98.0 135 25 94/52 100 Mechanical Ventilator 50 04/29/18 19:54 24 89/47 Mechanical Ventilator 50 04/29/18 19:52 125 33 83/47 94 Mechanical Ventilator 50 04/29/18 19:40 24 94/51 Mechanical Ventilator 50 04/29/18 19:38 32 Mechanical Ventilator 50 04/29/18 19:25 24 152/83 Mechanical Ventilator 50 04/29/18 19:10 24 132/67 Mechanical Ventilator 50 04/29/18 19:04 144 38 50 04/29/18 19:00 140 25 136/64 90 Mechanical Ventilator 50 18 18:55 24 138/64 Mechanical Ventilator 50 04/29/18 18:28 24 155/75 Mechanical Ventilator 50 04/29/18 18:13 24 165/82 Mechanical Ventilator 04/29/18 18:00 99.9 140 25 168/71 100 Mechanical Ventilator 50 99.9 04/29/18 17:58 24 168/71 Mechanical Ventilator 04/29/18 17:43 25 167/83 Mechanical Ventilator 04/29/18 17:28 25 173/80 Mechanical Ventilator 04/29/18 17:14 144 16 50 18 17:13 25 178/86 Mechanical Ventilator 50 04/29/18 16:55 50 04/29/18 16:00 99.9 129 26 126/68 100 Room Air 99.9 04/29/18 15:35 99.0 86 20 120/80 97 Room Air 99.0 Status: awake, other - intubated Condition: critical HEENT: atraumatic, normocephalic, other - ETT, NGT Lungs: clear - but distant Heart: HR/BP unstable Abdomen: soft, non-tender, active bowel sounds, distended Extremities: edema - 2-3+ BLE + wound R leg Micro: Microbiology Date/Time Source Procedure Growth Status 04/29/18 15:40 Blood Blood Culture - Preliminary Resulted 04/29/18 15:20 Blood Blood Culture - Preliminary Resulted 04/30/18 04:00 Wound Gram Stain - Final Resulted 04/30/18 04:00 Wound Wound Culture Pending Resulted Accucheck: 54 Blood Sugars: BS not controlled Critical Care - Subjective ROS Limited/Unobtainable: Yes ICU Day: 1 Intubation Day: 1 Interval Events: 57 M h/o EtOH cirrhosis p/w AMS, lactic acidosis, AGNIESZKA, abnl LFT's, R > L B leg wounds, intubated in ED, now off pressors, MAP 50's, no sig secretions, stable on vent, awake, jaundiced Condition: critical IV Access: peripheral EKG Rhythm: Sinus Tachycardia FI02: 35 Vent Support Breath Rate: 16 Vent Support Mode: AC Vent Tidal Volume: 550 Sputum Amount: Scant PEEP: 5.0 PIP: 32 Fluids: D51/2NS@ 100 I&O: Intake and Output 04/29/18 04/30/18 19:00 07:00 Intake Total 731.046 ml Output Total 100 ml 470 ml Balance -100 ml 261.046 ml Intake Oral 0 ml IV Total 731.046 ml Output Urine Total 100 ml 470 ml # Bowel Movements 3 Subjective: ANUM CXR: CXR: NAD ET-Tube: 8.0 ET Position: 26 Labs: Laboratory Tests Test 04/29/18 15:40 04/29/18 15:58 04/29/18 17:30 04/29/18 19:18 White Blood Count 6.3 K/UL (4.8-10.8) Red Blood Count 3.61 M/UL (4.70-6.10) L Hemoglobin 11.1 G/DL (14.2-18.0) L Hematocrit 33.6 % (42.0-52.0) L Mean Corpuscular Volume 93 FL (80-99) Mean Corpuscular Hemoglobin 30.8 PG (27.0-31.0) Mean Corpuscular Hemoglobin Concent 33.2 G/DL (32.0-36.0) Red Cell Distribution Width 12.0 % (11.6-14.8) Platelet Count 74 K/UL (150-450) L Mean Platelet Volume 6.8 FL (6.5-10.1) Neutrophils (%) (Auto) % (45.0-75.0) Lymphocytes (%) (Auto) % (20.0-45.0) Monocytes (%) (Auto) % (1.0-10.0) Eosinophils (%) (Auto) % (0.0-3.0) Basophils (%) (Auto) % (0.0-2.0) Differential Total Cells Counted 100 Neutrophils % (Manual) 63 % (45-75) Lymphocytes % (Manual) 15 % (20-45) L Monocytes % (Manual) 6 % (1-10) Eosinophils % (Manual) 0 % (0-3) Basophils % (Manual) 0 % (0-2) Band Neutrophils 16 % (0-8) H Platelet Estimate Decreased L Platelet Morphology Normal Hypochromasia 1+ Anisocytosis 1+ Prothrombin Time 25.6 SEC (9.30-11.50) H Prothromb Time International Ratio 2.6 (0.9-1.1) H Activated Partial Thromboplast Time 51 SEC (23-33) H Urine Color Brown Urine Appearance Clear Urine pH 5 (4.5-8.0) Urine Specific [place] 1.020 (1.005-1.035) Urine Protein 1+ (NEGATIVE) H Urine Glucose (UA) Negative (NEGATIVE) Urine Ketones 2+ (NEGATIVE) H Urine Blood 1+ (NEGATIVE) H Urine Nitrite Positive (NEGATIVE) H Urine Bilirubin 2+ (NEGATIVE) H Urine Ictotest Positive (NEGATIVE) Urine Urobilinogen 8 MG/DL (0.0-1.0) H Urine Leukocyte Esterase 1+ (NEGATIVE) H Urine RBC 5-10 /HPF (0 - 0) H Urine WBC 2-4 /HPF (0 - 0) Urine Squamous Epithelial Cells None /LPF (NONE/OCC) Urine Amorphous Sediment Few /LPF (NONE) H Urine Bacteria Few /HPF (NONE) Sodium Level 131 MMOL/L (136-145) L Potassium Level 3.7 MMOL/L (3.5-5.1) Chloride Level 98 MMOL/L (98-107) Carbon Dioxide Level 17 MMOL/L (21-32) L Anion Gap 16 mmol/L (5-15) H Blood Urea Nitrogen 13 mg/dL (7-18) Creatinine 1.4 MG/DL (0.55-1.30) H Estimat Glomerular Filtration Rate > 60 mL/min (>60) Glucose Level 86 MG/DL (74-106) Lactic Acid Level 11.40 mmol/L (0.4-2.0) H 13.50 mmol/L (0.66-2.22) H Calcium Level 8.6 MG/DL (8.5-10.1) Total Bilirubin 12.6 MG/DL (0.2-1.0) H Direct Bilirubin 4.5 MG/DL (0.0-0.3) H Aspartate Amino Transf (AST/SGOT) 49 U/L (15-37) H Alanine Aminotransferase (ALT/SGPT) 28 U/L (12-78) Alkaline Phosphatase 95 U/L (46-116) Ammonia 61 umol/L (11-32) H Total Creatine Kinase 223 U/L (26-308) Troponin I 0.034 ng/mL (0.000-0.056) Total Protein 7.0 G/DL (6.4-8.2) Albumin 1.9 G/DL (3.4-5.0) L Globulin 5.1 g/dL Albumin/Globulin Ratio 0.4 (1.0-2.7) L Urine Opiates Screen Negative (NEGATIVE) Urine Barbiturates Screen Negative (NEGATIVE) Phencyclidine (PCP) Screen Negative (NEGATIVE) Urine Amphetamines Screen Negative (NEGATIVE) Urine Benzodiazepines Screen Negative (NEGATIVE) Urine Cocaine Screen Negative (NEGATIVE) Urine Marijuana (THC) Screen Negative (NEGATIVE) Arterial Blood pH 7.420 (7.350-7.450) 7.287 (7.350-7.450) Arterial Blood Partial Pressure CO2 21.7 mmHg (35.0-45.0) *L 34.6 mmHg (35.0-45.0) L Arterial Blood Partial Pressure O2 74.7 mmHg (75.0-100.0) L 96.6 mmHg (75.0-100.0) Arterial Blood HCO3 13.8 mmol/L (22.0-26.0) L 16.2 mmol/L (22.0-26.0) L Arterial Blood Oxygen Saturation 94.6 % (92.0-98.0) 96.5 % (92.0-98.0) Arterial Blood Base Excess -8.8 -9.5 Johan Test Positive Positive Triglycerides Level 41 MG/DL (30-150) Test 04/29/18 23:35 04/30/18 04:00 04/30/18 07:08 04/30/18 09:15 Lactic Acid Level 11.10 mmol/L (0.4-2.0) H 10.30 mmol/L (0.4-2.0) H 8.70 mmol/L (0.66-2.22) H White Blood Count 7.8 K/UL (4.8-10.8) Red Blood Count 2.91 M/UL (4.70-6.10) L Hemoglobin 9.6 G/DL (14.2-18.0) L Hematocrit 27.4 % (42.0-52.0) L Mean Corpuscular Volume 94 FL (80-99) Mean Corpuscular Hemoglobin 32.9 PG (27.0-31.0) H Mean Corpuscular Hemoglobin Concent 34.9 G/DL (32.0-36.0) Red Cell Distribution Width 12.5 % (11.6-14.8) Platelet Count 59 K/UL (150-450) L Mean Platelet Volume 7.3 FL (6.5-10.1) Neutrophils (%) (Auto) % (45.0-75.0) Lymphocytes (%) (Auto) % (20.0-45.0) Monocytes (%) (Auto) % (1.0-10.0) Eosinophils (%) (Auto) % (0.0-3.0) Basophils (%) (Auto) % (0.0-2.0) Differential Total Cells Counted 100 Neutrophils % (Manual) 27 % (45-75) L Lymphocytes % (Manual) 3 % (20-45) L Monocytes % (Manual) 1 % (1-10) Eosinophils % (Manual) 0 % (0-3) Basophils % (Manual) 0 % (0-2) Metamyelocytes % 2 % (0-0) H Band Neutrophils 67 % (0-8) H Platelet Estimate Decreased L Platelet Morphology Normal Anisocytosis 1+ Sodium Level 133 MMOL/L (136-145) L Potassium Level 3.7 MMOL/L (3.5-5.1) Chloride Level 100 MMOL/L (98-107) Carbon Dioxide Level 18 MMOL/L (21-32) L Anion Gap 15 mmol/L (5-15) Blood Urea Nitrogen 17 mg/dL (7-18) Creatinine 1.4 MG/DL (0.55-1.30) H Estimat Glomerular Filtration Rate > 60 mL/min (>60) Glucose Level 40 MG/DL (74-106) L Calcium Level 8.0 MG/DL (8.5-10.1) L Total Bilirubin 11.0 MG/DL (0.2-1.0) H Direct Bilirubin 5.9 MG/DL (0.0-0.3) H Aspartate Amino Transf (AST/SGOT) 56 U/L (15-37) H Alanine Aminotransferase (ALT/SGPT) 27 U/L (12-78) Alkaline Phosphatase 54 U/L (46-116) Total Protein 6.0 G/DL (6.4-8.2) L Albumin 1.6 G/DL (3.4-5.0) L Globulin 4.4 g/dL Albumin/Globulin Ratio 0.4 (1.0-2.7) L Triglycerides Level 54 MG/DL (30-150) Arterial Blood pH 7.347 (7.350-7.450) Arterial Blood Partial Pressure CO2 29.5 mmHg (35.0-45.0) L Arterial Blood Partial Pressure O2 81.8 mmHg (75.0-100.0) Arterial Blood HCO3 15.8 mmol/L (22.0-26.0) L Arterial Blood Oxygen Saturation 95.1 % (92.0-98.0) Arterial Blood Base Excess -8.7 Johan Test Positive Mario Rasmussen MD Apr 30, 2018 15:10
[2018-04-30] MEDS: Midazolam/D5W 100ml 100 ML IVPB SCH (15:15)
--- NOTE | 2018-04-30 15:15 | Infectious Diseases Prog Note ---
Assessment/Plan Assessment/Plan Full consult dictated: A) 1) sepsis, shock, gram neg bacteremia, fevers, ? biliary sepsis, ? pna 2) liver cirrhosis 3) pmh noted 4) allergies - nkda P) 1) meropenem, vancomycin, amikacin 2) patient needs central line 3) d/w pulmonary 4) thank you Subjective Allergies: Coded Allergies: No Known Allergies (Unverified , 04/29/18) Objective Vital Signs Last 24 Hour Vital Signs Date Time Temp Pulse Resp B/P (MAP) Pulse Ox O2 Delivery O2 Flow Rate FiO2 04/30/18 14:53 116 25 35 04/30/18 14:33 111 04/30/18 14:00 128 35 112/59 (76) 94 04/30/18 13:00 125 32 125/60 (81) 95 04/30/18 12:42 116 24 40 04/30/18 12:00 40 04/30/18 12:00 Mechanical Ventilator 04/30/18 12:00 127 04/30/18 12:00 114 27 87/42 (57) 98 04/30/18 11:00 115 26 87/40 (56) 98 04/30/18 10:55 117 25 45 04/30/18 10:00 127 34 120/57 (78) 95 04/30/18 09:00 126 30 114/51 (72) 99 04/30/18 08:36 128 37 50 04/30/18 08:00 50 04/30/18 08:00 127 04/30/18 08:00 Mechanical Ventilator 04/30/18 08:00 99.2 116 27 88/40 (56) 98 99.2 04/30/18 07:00 117 30 112/65 (81) 99 04/30/18 07:00 30 112/59 Mechanical Ventilator 50 04/30/18 06:46 127 37 50 04/30/18 06:00 130 32 121/91 (101) 96 04/30/18 06:00 31 121/91 Mechanical Ventilator 50 04/30/18 05:24 125 31 50 04/30/18 05:00 122 32 94/47 (63) 98 04/30/18 05:00 30 94/47 Mechanical Ventilator 50 04/30/18 04:50 26 92/41 50 04/30/18 04:00 50 04/30/18 04:00 98.3 121 32 101/54 (70) 98 98.3 04/30/18 04:00 33 101/54 Mechanical Ventilator 50 04/30/18 04:00 118 04/30/18 04:00 Mechanical Ventilator 04/30/18 03:00 120 32 97/43 (61) 98 04/30/18 03:00 31 97/43 Mechanical Ventilator 50 04/30/18 02:56 124 33 50 04/30/18 02:30 130 32 145/73 (97) 97 04/30/18 02:00 124 32 115/54 (74) 96 04/30/18 02:00 33 115/54 Mechanical Ventilator 50 04/30/18 01:30 117 32 84/45 (58) 97 04/30/18 01:00 120 32 96/46 (63) 98 04/30/18 01:00 30 96/46 Mechanical Ventilator 50 04/30/18 00:48 133 29 50 04/30/18 00:30 131 32 137/56 (83) 97 04/30/18 00:00 98.4 127 32 109/69 (82) 96 98.4 04/30/18 00:00 Mechanical Ventilator 04/30/18 00:00 32 109/69 Mechanical Ventilator 50 04/29/18 23:30 118 32 97/50 (66) 99 04/29/18 23:00 29 92/47 Mechanical Ventilator 50 04/29/18 23:00 118 32 92/47 (62) 98 04/29/18 22:47 121 30 50 04/29/18 22:30 121 32 98/54 (69) 98 04/29/18 22:00 124 32 96/53 (67) 97 04/29/18 22:00 30 98/54 Mechanical Ventilator 50 04/29/18 21:30 119 32 102/45 (64) 98 04/29/18 21:05 117 28 50 04/29/18 21:00 120 30 88/49 (62) 98 04/29/18 20:50 122 04/29/18 20:49 50 04/29/18 20:47 99.6 122 22 90/50 (63) 97 99.6 04/29/18 20:46 Mechanical Ventilator 04/29/18 20:40 98.0 135 25 94/52 100 Mechanical Ventilator 50 04/29/18 19:54 24 89/47 Mechanical Ventilator 50 04/29/18 19:52 125 33 83/47 94 Mechanical Ventilator 50 04/29/18 19:40 24 94/51 Mechanical Ventilator 50 04/29/18 19:38 32 Mechanical Ventilator 50 04/29/18 19:25 24 152/83 Mechanical Ventilator 50 04/29/18 19:10 24 132/67 Mechanical Ventilator 50 04/29/18 19:04 144 38 50 04/29/18 19:00 140 25 136/64 90 Mechanical Ventilator 50 04/29/18 18:55 24 138/64 Mechanical Ventilator 50 04/29/18 18:28 24 155/75 Mechanical Ventilator 50 04/29/18 18:13 24 165/82 Mechanical Ventilator 04/29/18 18:00 99.9 140 25 168/71 100 Mechanical Ventilator 50 99.9 04/29/18 17:58 24 168/71 Mechanical Ventilator 04/29/18 17:43 25 167/83 Mechanical Ventilator 04/29/18 17:28 25 173/80 Mechanical Ventilator 04/29/18 17:14 144 16 50 04/29/18 17:13 25 178/86 Mechanical Ventilator 50 04/29/18 16:55 50 04/29/18 16:00 99.9 129 26 126/68 100 Room Air 99.9 04/29/18 15:35 99.0 86 20 120/80 97 Room Air 99.0 Height (Feet): 5 Height (Inches): 9.00 Weight (Pounds): 295 Microbiology Date/Time Source Procedure Growth Status 04/29/18 15:40 Blood Blood Culture - Preliminary Resulted 04/29/18 15:20 Blood Blood Culture - Preliminary Resulted 04/30/18 04:00 Wound Gram Stain - Final Resulted 04/30/18 04:00 Wound Wound Culture Pending Resulted Laboratory Tests Test 04/29/18 15:40 04/29/18 15:58 04/29/18 17:30 04/29/18 19:18 White Blood Count 6.3 K/UL (4.8-10.8) Red Blood Count 3.61 M/UL (4.70-6.10) L Hemoglobin 11.1 G/DL (14.2-18.0) L Hematocrit 33.6 % (42.0-52.0) L Mean Corpuscular Volume 93 FL (80-99) Mean Corpuscular Hemoglobin 30.8 PG (27.0-31.0) Mean Corpuscular Hemoglobin Concent 33.2 G/DL (32.0-36.0) Red Cell Distribution Width 12.0 % (11.6-14.8) Platelet Count 74 K/UL (150-450) L Mean Platelet Volume 6.8 FL (6.5-10.1) Neutrophils (%) (Auto) % (45.0-75.0) Lymphocytes (%) (Auto) % (20.0-45.0) Monocytes (%) (Auto) % (1.0-10.0) Eosinophils (%) (Auto) % (0.0-3.0) Basophils (%) (Auto) % (0.0-2.0) Differential Total Cells Counted 100 Neutrophils % (Manual) 63 % (45-75) Lymphocytes % (Manual) 15 % (20-45) L Monocytes % (Manual) 6 % (1-10) Eosinophils % (Manual) 0 % (0-3) Basophils % (Manual) 0 % (0-2) Band Neutrophils 16 % (0-8) H Platelet Estimate Decreased L Platelet Morphology Normal Hypochromasia 1+ Anisocytosis 1+ Prothrombin Time 25.6 SEC (9.30-11.50) H Prothromb Time International Ratio 2.6 (0.9-1.1) H Activated Partial Thromboplast Time 51 SEC (23-33) H Urine Color Brown Urine Appearance Clear Urine pH 5 (4.5-8.0) Urine Specific [place] 1.020 (1.005-1.035) Urine Protein 1+ (NEGATIVE) H Urine Glucose (UA) Negative (NEGATIVE) Urine Ketones 2+ (NEGATIVE) H Urine Blood 1+ (NEGATIVE) H Urine Nitrite Positive (NEGATIVE) H Urine Bilirubin 2+ (NEGATIVE) H Urine Ictotest Positive (NEGATIVE) Urine Urobilinogen 8 MG/DL (0.0-1.0) H Urine Leukocyte Esterase 1+ (NEGATIVE) H Urine RBC 5-10 /HPF (0 - 0) H Urine WBC 2-4 /HPF (0 - 0) Urine Squamous Epithelial Cells None /LPF (NONE/OCC) Urine Amorphous Sediment Few /LPF (NONE) H Urine Bacteria Few /HPF (NONE) Sodium Level 131 MMOL/L (136-145) L Potassium Level 3.7 MMOL/L (3.5-5.1) Chloride Level 98 MMOL/L (98-107) Carbon Dioxide Level 17 MMOL/L (21-32) L Anion Gap 16 mmol/L (5-15) H Blood Urea Nitrogen 13 mg/dL (7-18) Creatinine 1.4 MG/DL (0.55-1.30) H Estimat Glomerular Filtration Rate > 60 mL/min (>60) Glucose Level 86 MG/DL (74-106) Lactic Acid Level 11.40 mmol/L (0.4-2.0) H 13.50 mmol/L (0.66-2.22) H Calcium Level 8.6 MG/DL (8.5-10.1) Total Bilirubin 12.6 MG/DL (0.2-1.0) H Direct Bilirubin 4.5 MG/DL (0.0-0.3) H Aspartate Amino Transf (AST/SGOT) 49 U/L (15-37) H Alanine Aminotransferase (ALT/SGPT) 28 U/L (12-78) Alkaline Phosphatase 95 U/L (46-116) Ammonia 61 umol/L (11-32) H Total Creatine Kinase 223 U/L (26-308) Troponin I 0.034 ng/mL (0.000-0.056) Total Protein 7.0 G/DL (6.4-8.2) Albumin 1.9 G/DL (3.4-5.0) L Globulin 5.1 g/dL Albumin/Globulin Ratio 0.4 (1.0-2.7) L Urine Opiates Screen Negative (NEGATIVE) Urine Barbiturates Screen Negative (NEGATIVE) Phencyclidine (PCP) Screen Negative (NEGATIVE) Urine Amphetamines Screen Negative (NEGATIVE) Urine Benzodiazepines Screen Negative (NEGATIVE) Urine Cocaine Screen Negative (NEGATIVE) Urine Marijuana (THC) Screen Negative (NEGATIVE) Arterial Blood pH 7.420 (7.350-7.450) 7.287 (7.350-7.450) Arterial Blood Partial Pressure CO2 21.7 mmHg (35.0-45.0) *L 34.6 mmHg (35.0-45.0) L Arterial Blood Partial Pressure O2 74.7 mmHg (75.0-100.0) L 96.6 mmHg (75.0-100.0) Arterial Blood HCO3 13.8 mmol/L (22.0-26.0) L 16.2 mmol/L (22.0-26.0) L Arterial Blood Oxygen Saturation 94.6 % (92.0-98.0) 96.5 % (92.0-98.0) Arterial Blood Base Excess -8.8 -9.5 Johan Test Positive Positive Triglycerides Level 41 MG/DL (30-150) Test 04/29/18 23:35 04/30/18 04:00 04/30/18 07:08 04/30/18 09:15 Lactic Acid Level 11.10 mmol/L (0.4-2.0) H 10.30 mmol/L (0.4-2.0) H 8.70 mmol/L (0.66-2.22) H White Blood Count 7.8 K/UL (4.8-10.8) Red Blood Count 2.91 M/UL (4.70-6.10) L Hemoglobin 9.6 G/DL (14.2-18.0) L Hematocrit 27.4 % (42.0-52.0) L Mean Corpuscular Volume 94 FL (80-99) Mean Corpuscular Hemoglobin 32.9 PG (27.0-31.0) H Mean Corpuscular Hemoglobin Concent 34.9 G/DL (32.0-36.0) Red Cell Distribution Width 12.5 % (11.6-14.8) Platelet Count 59 K/UL (150-450) L Mean Platelet Volume 7.3 FL (6.5-10.1) Neutrophils (%) (Auto) % (45.0-75.0) Lymphocytes (%) (Auto) % (20.0-45.0) Monocytes (%) (Auto) % (1.0-10.0) Eosinophils (%) (Auto) % (0.0-3.0) Basophils (%) (Auto) % (0.0-2.0) Differential Total Cells Counted 100 Neutrophils % (Manual) 27 % (45-75) L Lymphocytes % (Manual) 3 % (20-45) L Monocytes % (Manual) 1 % (1-10) Eosinophils % (Manual) 0 % (0-3) Basophils % (Manual) 0 % (0-2) Metamyelocytes % 2 % (0-0) H Band Neutrophils 67 % (0-8) H Platelet Estimate Decreased L Platelet Morphology Normal Anisocytosis 1+ Sodium Level 133 MMOL/L (136-145) L Potassium Level 3.7 MMOL/L (3.5-5.1) Chloride Level 100 MMOL/L (98-107) Carbon Dioxide Level 18 MMOL/L (21-32) L Anion Gap 15 mmol/L (5-15) Blood Urea Nitrogen 17 mg/dL (7-18) Creatinine 1.4 MG/DL (0.55-1.30) H Estimat Glomerular Filtration Rate > 60 mL/min (>60) Glucose Level 40 MG/DL (74-106) L Calcium Level 8.0 MG/DL (8.5-10.1) L Total Bilirubin 11.0 MG/DL (0.2-1.0) H Direct Bilirubin 5.9 MG/DL (0.0-0.3) H Aspartate Amino Transf (AST/SGOT) 56 U/L (15-37) H Alanine Aminotransferase (ALT/SGPT) 27 U/L (12-78) Alkaline Phosphatase 54 U/L (46-116) Total Protein 6.0 G/DL (6.4-8.2) L Albumin 1.6 G/DL (3.4-5.0) L Globulin 4.4 g/dL Albumin/Globulin Ratio 0.4 (1.0-2.7) L Triglycerides Level 54 MG/DL (30-150) Arterial Blood pH 7.347 (7.350-7.450) Arterial Blood Partial Pressure CO2 29.5 mmHg (35.0-45.0) L Arterial Blood Partial Pressure O2 81.8 mmHg (75.0-100.0) Arterial Blood HCO3 15.8 mmol/L (22.0-26.0) L Arterial Blood Oxygen Saturation 95.1 % (92.0-98.0) Arterial Blood Base Excess -8.7 Johan Test Positive Current Medications Medications (Trade) Dose Ordered Sig/Ry Route PRN Reason Start Time Stop Time Status Last Admin Dose Admin Cefepime HCl 2 gm/ Dextrose 55 ml @ 110 mls/hr Q12H IVPB 04/30/18 04:00 05/07/18 03:59 04/30/18 05:24 Dextrose/Sodium Chloride 1,000 ml @ 100 mls/hr Q10H IV 04/30/18 09:00 05/30/18 08:59 04/30/18 09:06 Lactulose (Cephulac) 20 gm THREE TIMES A DAY NG 04/30/18 13:00 05/30/18 12:59 04/30/18 13:24 Levofloxacin 150 ml @ 100 mls/hr Q24H IVPB 04/30/18 18:00 05/07/18 17:59 Lorazepam (Ativan 2mg/ml 1ml) 2 mg Q4H PRN IV For Anxiety 04/30/18 13:30 05/07/18 13:29 04/30/18 14:14 Pantoprazole (Protonix) 40 mg DAILY IVP 04/30/18 09:00 05/30/18 08:59 04/30/18 09:07 Pentoxifylline (TRENtal) 400 mg THREE TIMES A DAY ORAL 04/30/18 13:00 05/30/18 12:59 UNV Propofol 100 ml @ 0 mls/hr Q24H IV 04/29/18 22:00 05/01/18 21:59 04/30/18 04:50 Vancomycin HCl (Vanco rx to dose) 1 ea DAILY PRN MISC Per rx protocol 04/29/18 22:00 05/29/18 21:59 Vancomycin HCl/ Dextrose 250 ml @ 125 mls/hr Q12HR@0800,2000 IVPB 04/30/18 08:00 05/05/18 07:59 04/30/18 09:07 Doris Ramos MD Apr 30, 2018 15:15
--- NOTE | 2018-04-30 15:39 | Emergency Room Report ---
History of Present Illness General Chief Complaint: Altered Level of Consciousness Source: Medical Record Present Illness Allergies: Coded Allergies: No Known Allergies (Unverified , 04/29/18) Nursing Documentation-PMH Hx Cardiac Problems: Yes Hx Cancer: No Hx Gastrointestinal Problems: Yes - ascites Hx Neurological Problems: Yes Hx Syncope: Yes Physical Exam Vital Signs Date Time Temp Pulse Resp B/P (MAP) Pulse Ox O2 Delivery O2 Flow Rate FiO2 04/29/18 15:35 99.0 86 20 120/80 97 Room Air 99.0 04/29/18 16:55 50 Procedures Central Line Central Line : Consent: Emergent Central Line Lumen: triple Maximal Sterile Barrier Tech: yes cap, yes mask, yes sterile gown, yes sterile gloves, yes large sterile sheet, yes hand hygiene, yes chlorhexidine prep No Max Barrier Tech Because: emergency insertion Central Line Postion: internal jugular (R) Complications: none Central Line Post Position: sutured, good blood return, position confirmed w / CXR Attempts: One Patient Tolerated: Well Complications: None Progress ultrasound guided insertion of right internal jugular vein emergent indication: hypotension in critically ill patient Medical Decision Making Diagnostic Impression: Primary Impression: Cellulitis Additional Impressions: Acute encephalopathy Lactic acid acidosis Cirrhosis of liver Acute respiratory failure without hypercapnia Last Vital Signs Date Time Temp Pulse Resp B/P (MAP) Pulse Ox O2 Delivery O2 Flow Rate FiO2 04/30/18 14:53 116 25 35 04/30/18 14:00 112/59 (76) 94 04/30/18 12:00 Mechanical Ventilator 04/30/18 08:00 99.2 99.2 Disposition: ADMITTED INPATIENT Condition: Serious Referrals: NOT CHOSEN IPA/,REFERRING (PCP) Es Elise MD Apr 30, 2018 15:39
--- NOTE | 2018-04-30 15:46 | General Progress Note ---
Assessment/Plan Status: deteriorating Status Narrative 57 yo man with decompensated cirrhosis and septic shock with acute respiratory failure Assessment/Plan #Septic Shock/severe sepsis with end organ damage #Gram negative sepsis -Lactic acid elevated; BP decreased this AM despite >7 liters of IVF's -will need emergent central line with vasoactive medications/pressors -Dr. Rasmussen's/Pulmonary input appreciated -Continue broad spectrum IV antibiotics -F/u ID recommendations #Cirrhosis, decompensated #End stage liver disease #coagulopathy -Gastroenterology input appreciated -paracentesis with peritoneal fluid analysis - NGT - placed by GI --> bilious return - restart lactulose and Trental - PPI - check AFP - vitamin K #[id number] -Likely secondary to sepsis/hypovolemia -continue IVF's/vasopressor support #acute encephalopathy -Likely secondary to septic shock -On propofol currently given intubation DVT Prophylaxis: scd's Code status: full Hospital Classification declaration: Based on this initial evaluation, and depending on the patient's clinical course, I anticipate that this patient will require hospitalization for 5-7 days. Disposition: Once the patient is stable to leave the hospital, I anticipate the patient will likely be discharged to the following environment:SNF I spent 45 minutes on this patient's case, and 30minutes was dedicated to counseling and/or care coordination. Time of note may not reflect time of encounter. Subjective Date patient seen: Apr 30, 2018 Time patient seen: 12:01 ROS Limited/Unobtainable: Yes Allergies: Coded Allergies: No Known Allergies (Unverified , 04/29/18) All Systems: reviewed and negative except above Subjective Events of overnight noted Chart reviewed by me Patient intubated and not responsive BP lower this AM- put into Trendelenburg Objective Last 24 Hour Vital Signs Date Time Temp Pulse Resp B/P (MAP) Pulse Ox O2 Delivery O2 Flow Rate FiO2 04/30/18 14:53 116 25 35 04/30/18 14:33 111 04/30/18 14:00 128 35 112/59 (76) 94 04/30/18 13:00 125 32 125/60 (81) 95 04/30/18 12:42 116 24 40 04/30/18 12:00 40 04/30/18 12:00 Mechanical Ventilator 04/30/18 12:00 127 04/30/18 12:00 114 27 87/42 (57) 98 04/30/18 11:00 115 26 87/40 (56) 98 /818 10:55 117 25 45 /18 10:00 127 34 120/57 (78) 95 04/30/18 09:00 126 30 114/51 (72) 99 18 08:36 128 37 50 18 08:00 50 18 08:00 127 04/30/18 08:00 Mechanical Ventilator 04/30/18 08:00 99.2 116 27 88/40 (56) 98 99.2 04/30/18 07:00 117 30 112/65 (81) 99 04/30/18 07:00 30 112/59 Mechanical Ventilator 50 04/30/18 06:46 127 37 50 04/30/18 06:00 130 32 121/91 (101) 96 04/30/18 06:00 31 121/91 Mechanical Ventilator 50 04/30/18 05:24 125 31 50 04/30/18 05:00 122 32 94/47 (63) 98 04/30/18 05:00 30 94/47 Mechanical Ventilator 50 04/30/18 04:50 26 92/41 50 04/30/18 04:00 50 04/30/18 04:00 98.3 121 32 101/54 (70) 98 98.3 04/30/18 04:00 33 101/54 Mechanical Ventilator 50 04/30/18 04:00 118 04/30/18 04:00 Mechanical Ventilator 04/30/18 03:00 120 32 97/43 (61) 98 04/30/18 03:00 31 97/43 Mechanical Ventilator 50 04/30/18 02:56 124 33 50 04/30/18 02:30 130 32 145/73 (97) 97 04/30/18 02:00 124 32 115/54 (74) 96 18 02:00 33 115/54 Mechanical Ventilator 50 04/30/18 01:30 117 32 84/45 (58) 97 04/30/18 01:00 120 32 96/46 (63) 98 18 01:00 30 96/46 Mechanical Ventilator 50 04/30/18 00:48 133 29 50 04/30/18 00:30 131 32 137/56 (83) 97 04/30/18 00:00 98.4 127 32 109/69 (82) 96 98.4 98/18 00:00 Mechanical Ventilator 818 00:00 32 109/69 Mechanical Ventilator 50 7/18 23:30 118 32 97/50 (66) 99 9/7/18 23:00 29 92/47 Mechanical Ventilator 50 7/18 23:00 118 32 92/47 (62) 98 9/7/18 22:47 121 30 50 9/7/18 22:30 121 32 98/54 (69) 98 9/7/18 22:00 124 32 96/53 (67) 97 9/7/18 22:00 30 98/54 Mechanical Ventilator 50 04/29/18 21:30 119 32 102/45 (64) 98 9/7/18 21:05 117 28 50 9//18 21:00 120 30 88/49 (62) 98 9/7/18 20:50 122 /7/18 20:49 50 04/29/18 20:47 99.6 122 22 90/50 (63) 97 99.6 18 20:46 Mechanical Ventilator 18 20:40 98.0 135 25 94/52 100 Mechanical Ventilator 50 04/29/18 19:54 24 89/47 Mechanical Ventilator 50 04/29/18 19:52 125 33 83/47 94 Mechanical Ventilator 50 18 19:40 24 94/51 Mechanical Ventilator 50 04/29/18 19:38 32 Mechanical Ventilator 50 04/29/18 19:25 24 152/83 Mechanical Ventilator 50 18 19:10 24 132/67 Mechanical Ventilator 50 18 19:04 144 38 50 04/29/18 19:00 140 25 136/64 90 Mechanical Ventilator 50 04/29/18 18:55 24 138/64 Mechanical Ventilator 50 04/29/18 18:28 24 155/75 Mechanical Ventilator 50 04/29/18 18:13 24 165/82 Mechanical Ventilator 18 18:00 99.9 140 25 168/71 100 Mechanical Ventilator 50 99.9 7/18 17:58 24 168/71 Mechanical Ventilator 04/29/18 17:43 25 167/83 Mechanical Ventilator 18 17:28 25 173/80 Mechanical Ventilator 04/29/18 17:14 144 16 50 9/7/18 17:13 25 178/86 Mechanical Ventilator 50 04/29/18 16:55 50 04/29/18 16:00 99.9 129 26 126/68 100 Room Air 99.9 Intake and Output 04/29/18 04/30/18 19:00 07:00 Intake Total 731.046 ml Output Total 100 ml 470 ml Balance -100 ml 261.046 ml Intake Oral 0 ml IV Total 731.046 ml Output Urine Total 100 ml 470 ml # Bowel Movements 3 Laboratory Tests 04/29/18 15:40: White Blood Count 6.3, Red Blood Count 3.61L, Hemoglobin 11.1L, Hematocrit 33.6L , Mean Corpuscular Volume 93, Mean Corpuscular Hemoglobin 30.8, Mean Corpuscular Hemoglobin Concent 33.2, Red Cell Distribution Width 12.0, Platelet Count 74L, Mean Platelet Volume 6.8, Neutrophils (%) (Auto) , Lymphocytes (%) ( Auto) , Monocytes (%) (Auto) , Eosinophils (%) (Auto) , Basophils (%) (Auto) , Differential Total Cells Counted 100, Neutrophils % (Manual) 63, Lymphocytes % ( Manual) 15L, Monocytes % (Manual) 6, Eosinophils % (Manual) 0, Basophils % ( Manual) 0, Band Neutrophils 16H, Platelet Estimate DecreasedL, Platelet Morphology Normal, Hypochromasia 1+, Anisocytosis 1+, Prothrombin Time 25.6H, Prothromb Time International Ratio 2.6H, Activated Partial Thromboplast Time 51H , Urine Color Brown, Urine Appearance Clear, Urine pH 5, Urine Specific [place] 1.020, Urine Protein 1+H, Urine Glucose (UA) Negative, Urine Ketones 2+H, Urine Blood 1+H, Urine Nitrite PositiveH, Urine Bilirubin 2+H, Urine Ictotest Positive , Urine Urobilinogen 8H, Urine Leukocyte Esterase 1+H, Urine RBC 5-10H, Urine WBC 2-4, Urine Squamous Epithelial Cells None, Urine Amorphous Sediment FewH, Urine Bacteria Few, Sodium Level 131L, Potassium Level 3.7, Chloride Level 98, Carbon Dioxide Level 17L, Anion Gap 16H, Blood Urea Nitrogen 13, Creatinine 1.4H , Estimat Glomerular Filtration Rate > 60, Glucose Level 86, Lactic Acid Level 11.40H, Calcium Level 8.6, Total Bilirubin 12.6H, Direct Bilirubin 4.5H, Aspartate Amino Transf (AST/SGOT) 49H, Alanine Aminotransferase (ALT/SGPT) 28, Alkaline Phosphatase 95, Ammonia 61H, Total Creatine Kinase 223, Troponin I 0.034, Total Protein 7.0, Albumin 1.9L, Globulin 5.1, Albumin/Globulin Ratio 0.4L, Urine Opiates Screen Negative, Urine Barbiturates Screen Negative, Phencyclidine (PCP) Screen Negative, Urine Amphetamines Screen Negative, Urine Benzodiazepines Screen Negative, Urine Cocaine Screen Negative, Urine Marijuana (THC) Screen Negative 04/29/18 15:58: Arterial Blood pH 7.420, Arterial Blood Partial Pressure CO2 21.7*L, Arterial Blood Partial Pressure O2 74.7L, Arterial Blood HCO3 13.8L, Arterial Blood Oxygen Saturation 94.6, Arterial Blood Base Excess -8.8, Johan Test Positive 04/29/18 17:30: Lactic Acid Level 13.50H, Triglycerides Level 41 04/29/18 19:18: Arterial Blood pH 7.287L, Arterial Blood Partial Pressure CO2 34.6L, Arterial Blood Partial Pressure O2 96.6, Arterial Blood HCO3 16.2L, Arterial Blood Oxygen Saturation 96.5, Arterial Blood Base Excess -9.5, Johan Test Positive 04/29/18 23:35: Lactic Acid Level 11.10H 04/30/18 04:00: Lactic Acid Level 10.30H, White Blood Count 7.8, Red Blood Count 2.91L, Hemoglobin 9.6L, Hematocrit 27.4L, Mean Corpuscular Volume 94, Mean Corpuscular Hemoglobin 32.9H, Mean Corpuscular Hemoglobin Concent 34.9, Red Cell Distribution Width 12.5, Platelet Count 59L, Mean Platelet Volume 7.3, Neutrophils (%) (Auto) , Lymphocytes (%) (Auto) , Monocytes (%) (Auto) , Eosinophils (%) (Auto) , Basophils (%) (Auto) , Differential Total Cells Counted 100, Neutrophils % (Manual) 27L, Lymphocytes % (Manual) 3L, Monocytes % (Manual) 1, Eosinophils % (Manual) 0, Basophils % (Manual) 0, Metamyelocytes % 2H, Band Neutrophils 67H, Platelet Estimate DecreasedL, Platelet Morphology Normal, Anisocytosis 1+, Sodium Level 133L, Potassium Level 3.7, Chloride Level 100, Carbon Dioxide Level 18L, Anion Gap 15, Blood Urea Nitrogen 17, Creatinine 1.4H, Estimat Glomerular Filtration Rate > 60, Glucose Level 40L, Calcium Level 8.0L, Total Bilirubin 11.0H, Direct Bilirubin 5.9H, Aspartate Amino Transf (AST/ SGOT) 56H, Alanine Aminotransferase (ALT/SGPT) 27, Alkaline Phosphatase 54, Total Protein 6.0L, Albumin 1.6L, Globulin 4.4, Albumin/Globulin Ratio 0.4L, Triglycerides Level 54 04/30/18 07:08: Arterial Blood pH 7.347L, Arterial Blood Partial Pressure CO2 29.5L, Arterial Blood Partial Pressure O2 81.8, Arterial Blood HCO3 15.8L, Arterial Blood Oxygen Saturation 95.1, Arterial Blood Base Excess -8.7, Johan Test Positive 04/30/18 09:15: Lactic Acid Level 8.70H Height (Feet): 5 Height (Inches): 9.00 Weight (Pounds): 295 General Appearance: moderate distress EENT: PERRL/EOMI, TMs normal Neck: non-tender Cardiovascular: normal rate, regular rhythm Respiratory/Chest: rhonchi - bilaterally, other - on ventilator Abdomen: distended, other - +fluid wave Pelvis: normal external exam Extremities: slow capillary refill Edema: moderate edema Neurologic: unresponsive Lymphatic: normal anterior cervical (L), normal anterior cervical (R) Jax Oliva MD Apr 30, 2018 15:45
[2018-04-30] MEDS ORDERED: Midazolam 2mg/2ml Inj IVP SCH (16:00)
[2018-04-30 16:29] LABS: ALANINE AMINOTRANSFERASE 29 U/L (12-78); ALBUMIN 1.6 G/DL (3.4-5.0); ALBUMIN/GLOBULIN RATIO 0.4 (1.0-2.7); ALKALINE PHOSPHATASE 43 U/L (46-116); ANION GAP 12 mmol/L (5-15); ASPARTATE AMINO TRANSFERASE 65 U/L (15-37); BILIRUBIN,TOTAL 10.4 MG/DL (0.2-1.0); BLOOD UREA NITROGEN 22 mg/dL (7-18); CALCIUM 8.4 MG/DL (8.5-10.1); CARBON DIOXIDE 20 MMOL/L (21-32); CHLORIDE 101 MMOL/L (98-107); CREATININE 1.4 MG/DL (0.55-1.30); POTASSIUM 3.8 MMOL/L (3.5-5.1); SODIUM 133 MMOL/L (136-145)
[2018-04-30 16:34] LABS: BILIRUBIN,DIRECT 5.8 MG/DL (0.0-0.3)
--- NOTE | 2018-04-30 16:38 | Diagnostic Imaging Report ---
EXAM: XR Chest, 1 View CLINICAL HISTORY: LINE TECHNIQUE: Frontal view of the chest. COMPARISON: Chest x-ray 04/29/18 1724 FINDINGS: Lungs: Hypoventilatory lungs. Bilateral airspace opacities, worse than prior study. Pleural space: Possible pleural effusions. No pneumothorax. Heart: Unremarkable. No cardiomegaly. Mediastinum: Unremarkable. Bones/joints: Unremarkable. Tubes, lines and devices: Endotracheal tube is at the pamela, consider pulling back 2.5 cm. Right IJ catheter tip to the mid SVC in good position. NG tube traverses diaphragm, tip is not seen. IMPRESSION: 1. Endotracheal tube is at the pamela, consider pulling back 2.5 cm. 2. Right IJ catheter tip to the mid SVC in good position. 3. NG tube traverses diaphragm, tip is not seen. 4. Hypoventilatory lungs. Bilateral airspace opacities, worse than prior study. 5. Possible pleural effusions. [employer] 04/30/18 16:43 Verify Receipt with Nurse Verified receipt with JOEL Hudson on 04/30 16:43 (-07:00) 04/30/18 16:46 Call From Hospital JOEL Hudson called on 04/30 16:46 (-07:00)
[2018-04-30] MEDS ORDERED: Amikacin 400 MG in NS 110 ML IV SCH (17:00)
--- NOTE | 2018-04-30 18:05 | Diagnostic Imaging Report ---
EXAM: XR Chest, 1 View CLINICAL HISTORY: ABN CHST TECHNIQUE: Frontal view of the chest. COMPARISON: Chest x-ray 04/30/18 1551 FINDINGS: Lungs: Previously seen bilateral airspace opacities, left worse than right, have improved especially in the left lung. Continued low lung volumes with bibasilar atelectasis or consolidations and possible pleural effusions. Pleural space: See above. Heart: Unremarkable. No cardiomegaly. Mediastinum: Unremarkable. Bones/joints: Unremarkable. Tubes, lines and devices: The endotracheal tube has been pulled back and is now 4 cm above the pamela in good position. Stable right IJ catheter. NG tube tip in the stomach, good position. IMPRESSION: 1. The endotracheal tube has been pulled back and is now 4 cm above the pamela in good position. 2. Previously seen bilateral airspace opacities, left worse than right, have improved especially in the left lung. 3. Continued low lung volumes with bibasilar atelectasis or consolidations and possible pleural effusions.
[2018-04-30] MEDS ORDERED: Midazolam 2mg/2ml Inj IVP PRN ×2 (18:30→19:45)
[2018-04-30] MEDS ORDERED: Tubing IV Secondary IV ONE (18:32)
[2018-04-30] MEDS ORDERED: D5 1/2NS 1000ml IV ONE (18:32)
[2018-04-30] MEDS ORDERED: NS 275ml ONE (18:32)
--- NOTE | 2018-04-30 20:30 | Consultation ---
DATE OF CONSULTATION: 04/30/2018 NOTE: POOR AUDIO GASTROENTEROLOGY CONSULTATION CONSULTING PHYSICIAN: Pierre Suggs M.D. CHIEF COMPLAINT: I was asked to see this patient by Dr. Juárez for evaluation of cirrhosis and related issues. HISTORY OF PRESENT ILLNESS: The patient is a 57-year-old white man who is intubated, unable to provide a history, whom I was asked to see for the above issues. He came to the emergency room last night with altered mental status and subsequently he had to be intubated for airway protection. Still he is confused and agitated. He is on propofol. There is no family and no other information is available. By chart documentation, the patient apparently is from [place], and he was sent to [facility] for a liver transplant evaluation. However, no further details for this plan is available. The patient's medications on admission include lactulose and also Trental, which suggests perhaps a degree of alcoholic hepatitis, being treated by Trental. He also had some leg ulcers, and alternatively Trental may be given for peripheral vascular disease. These matters will be discussed when the patient is awake and able to talk. PAST MEDICAL HISTORY: History of alcoholic cirrhosis, chronic leg wound, coagulopathy, anemia, and hepatic encephalopathy. FAMILY HISTORY: Unavailable. SOCIAL HISTORY: The patient apparently last drank in August according to the chart documentation. Otherwise, no other social history is available. REVIEW OF SYSTEMS: Unobtainable. MEDICATIONS: See chart list for details. PHYSICAL EXAMINATION: GENERAL: A well-developed, obese, white man, seen in the ICU. HEENT: Normocephalic. The patient had a tracheal tube. He is agitated. NECK: Supple. CHEST: Clear to auscultation. CARDIOVASCULAR: Tachycardic heart rate. ABDOMEN: Soft, obese, and distended. EXTREMITIES: Revealed trace edema and leg wounds. LABORATORY DATA AND IMAGING STUDIES: Noted. ASSESSMENT: This patient presents with cirrhosis, which is presumed due to the past history of alcoholism. He also is in a state of shock with lactic acidosis, hypotension, and tachycardia. He should be supported with IV fluids and pressors as necessary as well as broad-spectrum antibiotics. I had to carefully place a nasogastric tube, which had ability to return at the end. That is why, his lactulose is going to be restarted. He had some episodes of hypoglycemia this morning requiring D50, and therefore, he should be started on tube feedings to avoid further hypoglycemia. With altered mental status, sepsis and also lactic acidosis, hs ammonia will be followed and treated. He has respiratory failure, but he is awake and agitated and non responsive. Weaning trials given both respect to the ventilator as well as propofol. His overall prognosis is obviously guarded, but if he carries through the current decompensation then perhaps he can be stabilized for [facility]. He also has a gram- negative selvin bacteremia with suspicious source possibly being less spontaneous bacterial peritonitis. RECOMMENDATIONS: Per above discussion and per orders written in the chart. Thank you for asking me to participate in the care of this patient. Pierre Suggs M.D. DR: MAYNOR JOB#: [id number] CC: GAUDENCIO
[2018-04-30] MEDS: D5NS 1,000 ML IV SCH (20:41)
--- NOTE | 2018-04-30 23:00 | Consultation ---
DATE OF CONSULTATION: 04/30/2018 INFECTIOUS DISEASE CONSULTATION CONSULTING PHYSICIAN: Doris Ramos M.D. ATTENDING PHYSICIAN: Gina Juárez M.D. REFERRING PHYSICIAN: Johnathan Oliva M.D. REASON FOR CONSULTATION: Sepsis, shock, gram-negative bacteremia. CHIEF COMPLAINT: The patient's chief complaint coming in the hospital is sepsis and altered mental status. HISTORY OF PRESENT ILLNESS: This is a 57-year-old male, who comes in to [facility] and was noted to have sepsis with shock, currently is intubated on a vent with systolic blood pressure in the 80s, may require pressors. Workup shows he has gram-negative bacteremia. He has elevated liver enzymes. Infectious Disease consultation was requested for antibiotic management. The patient was placed on meropenem and vancomycin, and given a dose of amikacin. I discussed with Dr. Rasmussen and also discussed with pharmacy. Cultures are pending at this time. The patient also has ascites and an ultrasound paracentesis has been ordered. The patient will need central line. He is intubated on a vent. PAST MEDICAL HISTORY: Includes history of the following. The patient has past medical history of esophageal varices, portal hypertension, cirrhosis, alcoholic hepatitis, and ascites. He has history of hepatic encephalopathy. MEDICATIONS: Upon reviewing the MAR, he is on the following medications. He is on amikacin x1, meropenem, vancomycin, Versed, lorazepam, lactulose, norepinephrine as needed, and pantoprazole. He was on cefepime and Levaquin, which were discontinued. He is on propofol. ALLERGIES: No known drug allergies. SOCIAL HISTORY: He has history of what looks like ETOH. Could not assess smoking or IV drug abuse. FAMILY HISTORY: Noncontributory. REVIEW OF SYSTEMS: CONSTITUTIONAL: He is poorly responsive. We cannot get any review of systems. He is intubated on a vent. May require pressors. He has had low blood pressure. NEUROLOGIC: He is poorly responsive. No seizures. SKIN: No rash. He has possible right leg cellulitis. GASTROINTESTINAL: No nausea, vomiting, or diarrhea. GENITOURINARY: He has Higginbotham. PULMONARY: He is on vent. CARDIAC: Low blood pressure. Review of systems is limited otherwise. PHYSICAL EXAMINATION: GENERAL: Lethargic, poorly responsive. VITAL SIGNS: Temperature, he did have fevers as high as 99.9 degrees, they were persistent, now temperature is 99.2 degrees. Pulse rate 116, respiratory rate 25, blood pressure 112/59, and saturation 94%. Blood pressure was in the 80s. HEENT: Oral exam, intubated. He is normocephalic. Eye exam, he has what looked like icterus. HEART: Regular. No obvious gallop or murmur. ABDOMEN: Soft. Positive bowel sounds. LUNGS: Bilateral rhonchi. No definite rales. SKIN: No rash. 05:05 jaundice. MUSCULOSKELETAL: No effusion. The patient has what looks like maybe a chronic wound that really has right leg cellulitis that is a predominant thing, right leg redness and warmth. PERIPHERAL VASCULAR: No cyanosis. GENITOURINARY: He has Higginbotham. Urine is slightly cloudy. LINE SITES: Without phlebitis. NEUROLOGIC: Poorly responsive. LABORATORY AND DIAGNOSTIC DATA: Laboratory data as follows. Lactic acid 8.7. LFTs, total bilirubin was 11.0, alkaline phosphatase 54. Creatinine 1.4. White count 7.8, hemoglobin 9.6, and platelet count 59,000. Cultures are pending. UA, he had 1+ leukocyte esterase, 2-4 white blood cells. Chest x-ray showed no acute findings. Followup chest x-ray showed left greater than right perihilar airspace disease. CT scan of the chest, abdomen, and pelvis showed the following. CT of the chest showed basilar consolidation. CT of the abdomen and pelvis showed large volume ascites and portal hypertension. Wound culture of the right leg is pending and blood cultures have gram-negative rods. ASSESSMENT AND PLAN: 1. The patient has sepsis, shock with systolic blood pressure in the 80s, tachycardia, and low-grade fevers. The patient has gram-negative bacteremia. The source most likely is GI tract. Rule out spontaneous bacterial peritonitis with ascites. Rule out cholangitis/cholecystitis, which I think is less likely. His total bilirubin could be secondary to liver cirrhosis. Rule out UTI, again which I think is less likely. Rule out pneumonia. He is at risk for aspiration/community-acquired pneumonia. Rule out other process. He also has right leg cellulitis. He is in septic shock and also intubated on a vent, in respiratory failure. Continue antibiotics, vancomycin and meropenem for MRSA and gram-negative coverage. Given amikacin x1. Discussed with pharmacy. Continue meropenem, vancomycin, and amikacin x1. Check cultures, laboratories, and chest x-ray. Check paracentesis by ultrasound, which he will need. The patient will also need a central line and consent was signed with Dr. Rasmussen as well for paracentesis. Await workup. Continue antibiotics. Prognosis is poor. 2. Liver cirrhosis. 3. Portal hypertension. 4. Ascites. 5. Anemia. 6. Thrombocytopenia. 7. Respiratory failure. 8. Low blood pressure. 9. Sepsis, shock. 10. Varices. 11. ETOH hepatitis. 12. Coagulopathy. 13. Altered mental status and hepatic encephalopathy. 14. 15. Past medical history noted. 16. He has no known allergies. 17. Social history is presumptively I think positive for ETOH. Cannot assess smoking or IV drug abuse. 18. Family history is noncontributory. 19. MAR was noted. 20. Case discussed with RN. 21. ICU care. 22. Case discussed with Dr. Rasmussen. 23. Continue treatment per primary consultants. 24. Poor prognosis. 25. Orders were entered and noted. Doris Ramos M.D. DR: SARBJIT JOB#: [id number] CC:
[2018-05-01] VITALS (42 sets, daily range): BP systolic 102–124; BP diastolic 47–75
[2018-05-01] MEDS: D5NS 1,000 ML IV SCH ×4 (02:46→17:02)
[2018-05-01] MEDS: LORazepam Inj 2mg/ml 1ml IV PRN (04:07)
[2018-05-01 04:49] LABS: HEMATOCRIT 27.6 % (42.0-52.0); HEMOGLOBIN 9.4 G/DL (14.2-18.0); MEAN CORPUSCULAR VOLUME 94 FL (80-99); PLATELET COUNT 77 K/UL (150-450); RED BLOOD COUNT 2.95 M/UL (4.70-6.10); RED CELL DISTRIBUTION WIDTH 12.2 % (11.6-14.8); WHITE BLOOD COUNT 13.2 K/UL (4.8-10.8)
[2018-05-01 05:03] LABS: INR 3.5 (0.9-1.1)
[2018-05-01 05:07] LABS: AMMONIA 101 umol/L (11-32)
[2018-05-01 05:24] LABS: ALANINE AMINOTRANSFERASE 30 U/L (12-78); ALBUMIN 1.6 G/DL (3.4-5.0); ALBUMIN/GLOBULIN RATIO 0.4 (1.0-2.7); ALKALINE PHOSPHATASE 48 U/L (46-116); ANION GAP 8 mmol/L (5-15); ASPARTATE AMINO TRANSFERASE 57 U/L (15-37); BILIRUBIN,TOTAL 9.5 MG/DL (0.2-1.0); BLOOD UREA NITROGEN 26 mg/dL (7-18); CALCIUM 8.3 MG/DL (8.5-10.1); CARBON DIOXIDE 23 MMOL/L (21-32); CHLORIDE 101 MMOL/L (98-107); CREATININE 1.3 MG/DL (0.55-1.30); SODIUM 132 MMOL/L (136-145)
[2018-05-01 05:25] LABS: BILIRUBIN,DIRECT 5.4 MG/DL (0.0-0.3)
--- NOTE | 2018-05-01 08:58 | Diagnostic Imaging Report ---
INDICATION: Infection COMPARISON: Chest x-ray dated 04/30/18 FINDINGS: Single frontal view demonstrates a normal cardiomediastinal silhouette. Right internal jugular, grossly unchanged. Nasogastric tube in gastric cavity. Endotracheal tube 5 cm above the pamela. Increasing opacity in bilateral mid to lower lung zones. No pleural effusions. The visualized osseous structures are within normal limits. IMPRESSION: Stable tubes and lines as outlined above. Increasing opacity in bilateral mid to lower lung zones.
[2018-05-01] MEDS ORDERED: D5NS 1000ml IV ONE (09:23)
[2018-05-01] MEDS: Lactulose 20gm/30ml UDC NG SCH ×3 (09:27→17:32)
[2018-05-01] MEDS: Pantoprazole Inj IVP SCH (09:27)
[2018-05-01] MEDS: Vancomycin 1500mg IVPB SCH ×2 (09:27→19:43)
[2018-05-01] MEDS ORDERED: Sodium Chloride 500ML 500 ML IV ONE (10:07)
--- NOTE | 2018-05-01 13:09 | General Progress Note ---
Assessment/Plan Assessment/Plan Assessment - Cirrhosis - portal HTN / varicies - presumed EtOH hepatitis - coagulopathy - ascites - sepsis, r/o SBP - Resp failure - AMS, likely hepatic encephalopathy - hypoglycemia - guarded Recommendations - NGT - placed by GI --> bilious return - restart lactulose and Trental - begin TF - follow labs - paracentesis - broad abx - PPI - wean off of vent and propofol - check AFP Subjective Allergies: Coded Allergies: No Known Allergies (Unverified , 04/29/18) Subjective Above noted d/w staff therapist intubated Objective Last 24 Hour Vital Signs Date Time Temp Pulse Resp B/P (MAP) Pulse Ox O2 Delivery O2 Flow Rate FiO2 05/01/18 13:00 108/62 05/01/18 12:30 106 20 35 05/01/18 12:30 103 18 110/70 (83) 100 05/01/18 12:00 105 05/01/18 12:00 99.0 100 18 114/65 (81) 100 99.0 05/01/18 12:00 35 05/01/18 12:00 Mechanical Ventilator 05/01/18 11:30 105 18 118/68 (85) 100 05/01/18 11:00 103 18 113/60 (77) 100 05/01/18 10:49 101 20 35 05/01/18 10:30 98 18 110/55 (73) 100 05/01/18 10:00 101 18 111/59 (76) 100 05/01/18 09:30 102 17 102/56 (71) 100 05/01/18 09:30 102 21 35 05/01/18 09:00 112/60 05/01/18 09:00 102 15 112/60 (77) 99 05/01/18 08:30 102 15 110/67 (81) 99 05/01/18 08:00 102 05/01/18 08:00 99.8 102 19 111/57 (75) 100 99.8 05/01/18 08:00 35 05/01/18 08:00 Mechanical Ventilator 05/01/18 07:19 103 20 35 05/01/18 07:00 109/58 05/01/18 07:00 103 16 109/58 (75) 100 05/01/18 06:30 105 16 117/57 (77) 100 05/01/18 06:00 124/66 18 06:00 108 27 124/66 (85) 98 18 05:30 104 17 112/66 (81) 99 18 05:07 105 19 35 18 05:00 114/60 18 05:00 103 26 114/60 (78) 99 18 04:30 107 21 110/68 (82) 98 05/01/18 04:05 122/75 05/01/18 04:00 35 05/01/18 04:00 98.0 109 25 122/75 (91) 99 98.0 05/01/18 04:00 Mechanical Ventilator 05/01/18 04:00 122/75 05/01/18 03:34 111 05/01/18 03:30 111 27 123/55 (77) 98 05/01/18 03:30 106 25 35 05/01/18 03:00 109 25 124/50 (74) 99 05/01/18 03:00 124/50 05/01/18 02:30 107 20 122/60 (80) 99 18 02:00 113/53 05/01/18 02:00 108 21 113/53 (73) 99 05/01/18 01:30 110 23 113/57 (75) 98 05/01/18 01:26 111 31 35 05/01/18 01:00 110 21 120/51 (74) 98 18 01:00 120/51 05/01/18 00:30 115 26 106/47 (66) 97 05/01/18 00:00 35 05/01/18 00:00 Mechanical Ventilator 05/01/18 00:00 109/50 05/01/18 00:00 99.2 112 23 109/50 (69) 98 99.2 04/30/18 23:30 125 36 35 18 23:30 112 23 113/59 (77) 97 04/30/18 23:10 118 04/30/18 23:00 114 23 124/55 (78) 97 04/30/18 23:00 109/53 18 22:46 100/56 04/30/18 22:30 117 29 100/56 (71) 97 04/30/18 22:00 115 24 115/55 (75) 97 04/30/18 22:00 115/55 04/30/18 21:30 115 22 102/52 (69) 97 04/30/18 21:30 121 32 35 04/30/18 21:00 117 25 97/45 (62) 97 04/30/18 21:00 97/45 04/30/18 20:30 122 32 107/48 (67) 95 04/30/18 20:00 Mechanical Ventilator 04/30/18 20:00 26 35 04/30/18 20:00 111/61 04/30/18 20:00 99.9 122 34 111/61 (78) 95 99.9 04/30/18 20:00 35 04/30/18 19:30 119 22 99/45 (63) 96 04/30/18 19:30 123 34 35 04/30/18 19:29 118 04/30/18 19:00 102/56 04/30/18 19:00 119 30 95/44 (61) 96 04/30/18 18:00 102/52 04/30/18 18:00 120 33 109/52 (71) 96 04/30/18 17:37 81/42 04/30/18 17:00 120 31 91/42 (58) 94 04/30/18 16:34 120 25 35 04/30/18 16:00 99.6 120 27 89/39 (56) 95 99.6 04/30/18 16:00 40 04/30/18 16:00 Mechanical Ventilator 04/30/18 15:00 119 26 101/47 (65) 95 04/30/18 14:53 116 25 35 04/30/18 14:33 111 04/30/18 14:00 128 35 112/59 (76) 94 Intake and Output 04/30/18 05/01/18 19:00 07:00 Intake Total 1536.6 ml 2717.5 ml Output Total 655 ml 450 ml Balance 881.6 ml 2267.5 ml Intake Oral 0 ml 0 ml Free Water 100 ml IV Total 1536.6 ml 2517.5 ml Tube Feeding 100 ml Output Urine Total 655 ml 450 ml # Bowel Movements 1 Laboratory Tests 04/30/18 15:45: Sodium Level 133L, Potassium Level 3.8, Chloride Level 101, Carbon Dioxide Level 20L, Anion Gap 12, Blood Urea Nitrogen 22H, Creatinine 1.4H, Estimat Glomerular Filtration Rate > 60, Glucose Level 77, Lactic Acid Level 7.00H, Calcium Level 8.4L, Total Bilirubin 10.4H, Direct Bilirubin 5.8H, Aspartate Amino Transf (AST/SGOT) 65H, Alanine Aminotransferase (ALT/SGPT) 29, Alkaline Phosphatase 43L, Troponin I 0.559H, Total Protein 5.9L, Albumin 1.6L, Globulin 4.3, Albumin/Globulin Ratio 0.4L, Cortisol [Pending] 04/30/18 19:00: Vancomycin Level Trough 15.2H 04/30/18 22:30: Lactic Acid Level 5.30H 05/01/18 03:55: Sodium Level 132L, Potassium Level 4.0, Chloride Level 101, Carbon Dioxide Level 23, Anion Gap 8, Blood Urea Nitrogen 26H, Creatinine 1.3, Estimat Glomerular Filtration Rate > 60, Glucose Level 159H, Lactic Acid Level 4.10H, Calcium Level 8.3L, Total Bilirubin 9.5H, Direct Bilirubin 5.4H, Aspartate Amino Transf (AST/SGOT) 57H, Alanine Aminotransferase (ALT/SGPT) 30, Alkaline Phosphatase 48, Total Protein 6.1L, Albumin 1.6L, Globulin 4.5, Albumin/ Globulin Ratio 0.4L, White Blood Count 13.2#H, Red Blood Count 2.95L, Hemoglobin 9.4L, Hematocrit 27.6L, Mean Corpuscular Volume 94, Mean Corpuscular Hemoglobin 31.8H, Mean Corpuscular Hemoglobin Concent 34.0, Red Cell Distribution Width 12.2, Platelet Count 77L, Mean Platelet Volume 6.2L, Neutrophils (%) (Auto) , Lymphocytes (%) (Auto) , Monocytes (%) (Auto) , Eosinophils (%) (Auto) , Basophils (%) (Auto) , Differential Total Cells Counted 100, Neutrophils % (Manual) 71, Lymphocytes % (Manual) 8L, Monocytes % ( Manual) 7, Eosinophils % (Manual) 0, Basophils % (Manual) 0, Band Neutrophils 14H, Platelet Estimate DecreasedL, Platelet Morphology Normal, Hypochromasia 1+ , Prothrombin Time 34.1H, Prothromb Time International Ratio 3.5H, Ammonia 101H , Alpha Fetoprotein [Pending] 05/01/18 09:55: Lactic Acid Level 3.90H Height (Feet): 5 Height (Inches): 9.00 Weight (Pounds): 305 Objective WDWN WM NCAT supple CTA RRR Soft / Obese trace edema sedated Pierre Suggs MD May 01, 2018 13:09
[2018-05-01] MEDS: Midazolam/D5W 100ml 100 ML IVPB SCH (15:15)
--- NOTE | 2018-05-01 16:44 | Pulmonolgy Critical Care Note ---
Critical Care - Asmt/Plan Problems: (1) Gram negative sepsis (2) Acute kidney failure (3) Hyperbilirubinemia (4) Shock, septic (5) Cellulitis (6) Cirrhosis of liver (7) Lactic acid acidosis (8) Acute encephalopathy (9) Altered mental state (10) Acute respiratory failure without hypercapnia (11) Coagulopathy Respiratory: other - SBT in am, likely extubation, continue current vent settings for now Cardiac: continue pressors - titrate NE to keep MAP > 60, continue to monitor HR/BP, other - trend LA Renal: decrease IV fluid - to D5NS@100 Infectious Disease: check cultures, continue antibiotics - Carlos Manuel & Vanco per ID Gastrointestinal: continue feedings/current rate, other - Lactulose, PPI, trental, paracentesis, TF's, GI recs Endocrine: monitor blood sugar, check TSH, other - F/U cortisol Hematologic: other - monitor coags, FFP prior to para Neurologic: keep patient comfortable - fent gtt off (RASS -2), PRN Versed Prophylaxis: Protonix, SCDs Disposition: keep in ICU Time Spent (Minutes): 70 Notes Reviewed: ID, GI Discussed with: nurses, consultants Critical Care - Objective Last 24 Hour Vital Signs Date Time Temp Pulse Resp B/P (MAP) Pulse Ox O2 Delivery O2 Flow Rate FiO2 05/01/18 16:00 Mechanical Ventilator 05/01/18 16:00 35 05/01/18 15:45 109 24 35 05/01/18 15:19 108/56 05/01/18 15:00 108 19 115/60 (78) 100 05/01/18 14:30 105 19 118/64 (82) 100 05/01/18 14:00 101 18 110/60 (77) 100 05/01/18 13:30 104 17 115/65 (82) 100 05/01/18 13:00 108/62 05/01/18 13:00 105 17 116/68 (84) 100 05/01/18 12:30 106 20 35 05/01/18 12:30 103 18 110/70 (83) 100 05/01/18 12:00 105 05/01/18 12:00 99.0 100 18 114/65 (81) 100 99.0 05/01/18 12:00 35 05/01/18 12:00 Mechanical Ventilator 05/01/18 11:30 105 18 118/68 (85) 100 18 11:00 103 18 113/60 (77) 100 05/01/18 10:49 101 20 35 05/01/18 10:30 98 18 110/55 (73) 100 18 10:00 101 18 111/59 (76) 100 05/01/18 09:30 102 17 102/56 (71) 100 05/01/18 09:30 102 21 35 05/01/18 09:00 112/60 05/01/18 09:00 102 15 112/60 (77) 99 05/01/18 08:30 102 15 110/67 (81) 99 05/01/18 08:00 102 05/01/18 08:00 99.8 102 19 111/57 (75) 100 99.8 05/01/18 08:00 35 05/01/18 08:00 Mechanical Ventilator 05/01/18 07:19 103 20 35 05/01/18 07:00 109/58 05/01/18 07:00 103 16 109/58 (75) 100 05/01/18 06:30 105 16 117/57 (77) 100 05/01/18 06:00 124/66 05/01/18 06:00 108 27 124/66 (85) 98 05/01/18 05:30 104 17 112/66 (81) 99 05/01/18 05:07 105 19 35 05/01/18 05:00 114/60 05/01/18 05:00 103 26 114/60 (78) 99 05/01/18 04:30 107 21 110/68 (82) 98 05/01/18 04:05 122/75 05/01/18 04:00 35 05/01/18 04:00 98.0 109 25 122/75 (91) 99 98.0 05/01/18 04:00 Mechanical Ventilator 05/01/18 04:00 122/75 05/01/18 03:34 111 05/01/18 03:30 111 27 123/55 (77) 98 05/01/18 03:30 106 25 35 05/01/18 03:00 109 25 124/50 (74) 99 05/01/18 03:00 124/50 05/01/18 02:30 107 20 122/60 (80) 99 18 02:00 113/53 918 02:00 108 21 113/53 (73) 99 18 01:30 110 23 113/57 (75) 98 18 01:26 111 31 35 9/18 01:00 110 21 120/51 (74) 98 18 01:00 120/51 05/01/18 00:30 115 26 106/47 (66) 97 05/01/18 00:00 35 05/01/18 00:00 Mechanical Ventilator 05/01/18 00:00 109/50 05/01/18 00:00 99.2 112 23 109/50 (69) 98 99.2 04/30/18 23:30 125 36 35 04/30/18 23:30 112 23 113/59 (77) 97 04/30/18 23:10 118 04/30/18 23:00 114 23 124/55 (78) 97 04/30/18 23:00 109/53 04/30/18 22:46 100/56 04/30/18 22:30 117 29 100/56 (71) 97 18 22:00 115 24 115/55 (75) 97 18 22:00 115/55 04/30/18 21:30 115 22 102/52 (69) 97 04/30/18 21:30 121 32 35 18 21:00 117 25 97/45 (62) 97 18 21:00 97/45 04/30/18 20:30 122 32 107/48 (67) 95 04/30/18 20:00 Mechanical Ventilator 04/30/18 20:00 26 35 9/818 20:00 111/61 918 20:00 99.9 122 34 111/61 (78) 95 99.9 18 20:00 35 18 19:30 119 22 99/45 (63) 96 18 19:30 123 34 35 9/8/18 19:29 118 /818 19:00 102/56 98/18 19:00 119 30 95/44 (61) 96 8/18 18:00 102/52 18 18:00 120 33 109/52 (71) 96 04/30/18 17:37 81/42 04/30/18 17:00 120 31 91/42 (58) 94 Status: sedated, other - intubated Condition: critical HEENT: atraumatic, normocephalic, other - ETT, NGT Abdomen: soft, non-tender, active bowel sounds Extremities: other - b LE edema, R leg dressed, R IJ Micro: Microbiology Date/Time Source Procedure Growth Status 04/29/18 15:40 Blood Blood Culture - Preliminary Gram Negative Bacillus 1 Resulted 04/29/18 15:20 Blood Blood Culture - Preliminary Gram Negative Bacillus 1 Resulted 04/30/18 04:00 Wound Gram Stain - Final Resulted 04/30/18 04:00 Wound Culture - Preliminary Gram Negative Bacillus 1 Staphylococcus Aureus Resulted 04/30/18 18:00 Sputum Induced Gram Stain - Final Resulted 04/30/18 18:00 Sputum Induced Sputum Culture Pending Resulted 04/29/18 17:00 Nasal Nares MRSA Culture - Final NO METHICILLIN RESISTANT STAPH AUREUS... Complete 04/29/18 17:00 Rectum VRE Culture - Final Enterococcus Faecalis - Vre Complete 04/29/18 17:00 Rectum - Final NO CARBAPENEM-RESISTANT ENTEROBACTERI... Complete Accucheck: 54 Blood Sugars: BS not controlled Critical Care - Subjective ROS Limited/Unobtainable: Yes ICU Day: 3 Intubation Day: 3 Interval Events: RAIN, Tm 99.9, SOV, sedated off meds, LA better, INR 3.5, small white thick secretions, R IJ TLC place, Levo 2 Condition: critical IV Access: central EKG Rhythm: Sinus Tachycardia FI02: 35 Vent Support Breath Rate: 16 Vent Support Mode: AC Vent Tidal Volume: 550 Sputum Amount: Moderate PEEP: 5.0 PIP: 26 Secretions: white thin Fluids: D5NS@150 Drips: NE 2 Tube Feeding Amount: 25 I&O: Intake and Output 04/30/18 05/01/18 19:00 07:00 Intake Total 1536.6 ml 2717.5 ml Output Total 655 ml 450 ml Balance 881.6 ml 2267.5 ml Intake Oral 0 ml 0 ml Free Water 100 ml IV Total 1536.6 ml 2517.5 ml Tube Feeding 100 ml Output Urine Total 655 ml 450 ml # Bowel Movements 1 Subjective: ANUM CXR: B scattered opacities ET-Tube: 8.0 ET Position: 24 Labs: Laboratory Tests Test 04/30/18 19:00 04/30/18 22:30 05/01/18 03:55 05/01/18 09:55 Vancomycin Level Trough 15.2 ug/mL (5.0-12.0) H Lactic Acid Level 5.30 mmol/L (0.4-2.0) H 4.10 mmol/L (0.4-2.0) H 3.90 mmol/L (0.4-2.0) H White Blood Count 13.2 K/UL (4.8-10.8) #H Red Blood Count 2.95 M/UL (4.70-6.10) L Hemoglobin 9.4 G/DL (14.2-18.0) L Hematocrit 27.6 % (42.0-52.0) L Mean Corpuscular Volume 94 FL (80-99) Mean Corpuscular Hemoglobin 31.8 PG (27.0-31.0) H Mean Corpuscular Hemoglobin Concent 34.0 G/DL (32.0-36.0) Red Cell Distribution Width 12.2 % (11.6-14.8) Platelet Count 77 K/UL (150-450) L Mean Platelet Volume 6.2 FL (6.5-10.1) L Neutrophils (%) (Auto) % (45.0-75.0) Lymphocytes (%) (Auto) % (20.0-45.0) Monocytes (%) (Auto) % (1.0-10.0) Eosinophils (%) (Auto) % (0.0-3.0) Basophils (%) (Auto) % (0.0-2.0) Differential Total Cells Counted 100 Neutrophils % (Manual) 71 % (45-75) Lymphocytes % (Manual) 8 % (20-45) L Monocytes % (Manual) 7 % (1-10) Eosinophils % (Manual) 0 % (0-3) Basophils % (Manual) 0 % (0-2) Band Neutrophils 14 % (0-8) H Platelet Estimate Decreased L Platelet Morphology Normal Hypochromasia 1+ Prothrombin Time 34.1 SEC (9.30-11.50) H Prothromb Time International Ratio 3.5 (0.9-1.1) H Sodium Level 132 MMOL/L (136-145) L Potassium Level 4.0 MMOL/L (3.5-5.1) Chloride Level 101 MMOL/L (98-107) Carbon Dioxide Level 23 MMOL/L (21-32) Anion Gap 8 mmol/L (5-15) Blood Urea Nitrogen 26 mg/dL (7-18) H Creatinine 1.3 MG/DL (0.55-1.30) Estimat Glomerular Filtration Rate > 60 mL/min (>60) Glucose Level 159 MG/DL (74-106) H Calcium Level 8.3 MG/DL (8.5-10.1) L Total Bilirubin 9.5 MG/DL (0.2-1.0) H Direct Bilirubin 5.4 MG/DL (0.0-0.3) H Aspartate Amino Transf (AST/SGOT) 57 U/L (15-37) H Alanine Aminotransferase (ALT/SGPT) 30 U/L (12-78) Alkaline Phosphatase 48 U/L (46-116) Ammonia 101 umol/L (11-32) H Total Protein 6.1 G/DL (6.4-8.2) L Albumin 1.6 G/DL (3.4-5.0) L Globulin 4.5 g/dL Albumin/Globulin Ratio 0.4 (1.0-2.7) L Alpha Fetoprotein Pending Test 05/01/18 13:30 Lactic Acid Level 2.60 mmol/L (0.4-2.0) H Mario Rasmussen MD May 01, 2018 16:44
--- NOTE | 2018-05-01 18:46 | Cardiology Report ---
APPROVED REPORT EXAM: Two-dimensional and M-mode echocardiogram with Doppler and color Doppler. INDICATION SOB M-Mode DIMENSIONS IVSd1.8 (0.7-1.1cm)Left Atrium (MM)3.9 (1.6-4.0cm) LVDd3.6 (3.5-5.6cm)Aortic Root2.9 (2.0-3.7cm) PWd2.2 (0.7-1.1cm)Aortic Cusp Exc.1.8 (1.5-2.0cm) IVSs2.2 cm LVDs2.3 (2.5-4.0cm) PWs1.5 cm Technically difficulat study with poor endocardial and valvular definition Normal left ventricular chamber size, systolic function and wall motion. Left ventricular ejection fraction estimated to be 70%. No evidence of left ventricular hypertrophy by 2-D. No evidence of pericardial effusion. Mild left atrial enlargement. Right cardiac chamber sizes are within normal limits. Focal aortic valve sclerosis with adequate cusp excursion. Thickened mitral valve leaflets with normal excursion. Mitral annulus and aortic root calcification. Pulmonic valve not well visualized. Normal tricuspid valve structure. Subcostal views are not obtained . A color flow and spectral Doppler study was performed and revealed: No aortic regurgitation. Peak gradient of 19 mmhg Mean gradient of 8 mmhg recorded across the aortic valve Trace mitral regurgitation. Mitral diastolic velocities suggest reduced left ventricular relaxation c/w mild LV diastolic dysfunction (Grade I ) Mild tricuspid regurgitation. Tricuspid systolic velocities suggests peak right ventricular systolic pressure of 32mmHg,
[2018-05-01] MEDS: Dyna-Hex 2% Top Sol 2oz TOPIC SCH (19:42)
--- NOTE | 2018-05-01 20:16 | General Progress Note ---
Assessment/Plan Status: deteriorating Assessment/Plan #Septic Shock/severe sepsis with end organ damage #Gram negative sepsis -Lactic acid elevated; BP decreased this AM despite >7 liters of IVF's -Emergent central line placed and vasoactive medications/pressors (Levophed) started -Dr. Rasmussen's/Pulmonary input and guidance appreciated -Continue broad spectrum IV antibiotics -ID recs appreciated #Cirrhosis, decompensated #End stage liver disease #coagulopathy -Gastroenterology input appreciated -paracentesis with peritoneal fluid analysis - NGT - placed by GI --> bilious return - restart lactulose and Trental - PPI - check AFP - vitamin K #[id number] -Likely secondary to sepsis/hypovolemia -continue IVF's/vasopressor support #acute encephalopathy -Likely secondary to septic shock -On sedative/hypnotics currently given intubation DVT Prophylaxis: scd's Code status: full Hospital Classification declaration: Based on this initial evaluation, and depending on the patient's clinical course, I anticipate that this patient will require hospitalization for 5-7 days. Disposition: Once the patient is stable to leave the hospital, I anticipate the patient will likely be discharged to the following environment:SNF I spent 45 minutes on this patient's case, and 30minutes was dedicated to counseling and/or care coordination. Time of note may not reflect time of encounter. Subjective Date patient seen: May 01, 2018 Time patient seen: 11:11 ROS Limited/Unobtainable: Yes Allergies: Coded Allergies: No Known Allergies (Unverified , 04/29/18) All Systems: reviewed and negative except above Subjective Events of overnight noted Chart reviewed by me Patient intubated and not responsive Pressors started Objective Last 24 Hour Vital Signs Date Time Temp Pulse Resp B/P (MAP) Pulse Ox O2 Delivery O2 Flow Rate FiO2 05/01/18 20:00 98.0 111 22 118/64 (82) 98 98.0 05/01/18 20:00 35 05/01/18 19:30 114 21 35 05/01/18 19:00 108 19 110/52 (71) 100 05/01/18 18:30 103 19 115/58 (77) 100 05/01/18 18:00 108 19 110/52 (71) 100 05/01/18 17:30 111 18 115/55 (75) 100 05/01/18 17:28 112 24 35 05/01/18 17:03 119/58 05/01/18 17:00 105 19 108/52 (70) 100 05/01/18 16:30 105 19 112/56 (74) 100 05/01/18 16:00 Mechanical Ventilator 05/01/18 16:00 35 05/01/18 16:00 104 05/01/18 16:00 99.0 101 19 110/55 (73) 100 99.0 05/01/18 15:45 109 24 35 05/01/18 15:30 105 19 115/55 (75) 100 18 15:19 108/56 05/01/18 15:00 108 19 115/60 (78) 100 05/01/18 14:30 105 19 118/64 (82) 100 05/01/18 14:00 101 18 110/60 (77) 100 05/01/18 13:30 104 17 115/65 (82) 100 05/01/18 13:00 108/62 05/01/18 13:00 105 17 116/68 (84) 100 05/01/18 12:30 106 20 35 05/01/18 12:30 103 18 110/70 (83) 100 05/01/18 12:00 105 05/01/18 12:00 99.0 100 18 114/65 (81) 100 99.0 05/01/18 12:00 35 05/01/18 12:00 Mechanical Ventilator 05/01/18 11:30 105 18 118/68 (85) 100 05/01/18 11:00 103 18 113/60 (77) 100 05/01/18 10:49 101 20 35 05/01/18 10:30 98 18 110/55 (73) 100 05/01/18 10:00 101 18 111/59 (76) 100 05/01/18 09:30 102 17 102/56 (71) 100 05/01/18 09:30 102 21 35 05/01/18 09:00 112/60 05/01/18 09:00 102 15 112/60 (77) 99 05/01/18 08:30 102 15 110/67 (81) 99 05/01/18 08:00 102 05/01/18 08:00 99.8 102 19 111/57 (75) 100 99.8 9/9/18 08:00 35 05/01/18 08:00 Mechanical Ventilator 05/01/18 07:19 103 20 35 05/01/18 07:00 109/58 05/01/18 07:00 103 16 109/58 (75) 100 05/01/18 06:30 105 16 117/57 (77) 100 05/01/18 06:00 124/66 05/01/18 06:00 108 27 124/66 (85) 98 05/01/18 05:30 104 17 112/66 (81) 99 05/01/18 05:07 105 19 35 05/01/18 05:00 114/60 05/01/18 05:00 103 26 114/60 (78) 99 05/01/18 04:30 107 21 110/68 (82) 98 05/01/18 04:05 122/75 05/01/18 04:00 35 05/01/18 04:00 98.0 109 25 122/75 (91) 99 98.0 05/01/18 04:00 Mechanical Ventilator 05/01/18 04:00 122/75 05/01/18 03:34 111 05/01/18 03:30 111 27 123/55 (77) 98 05/01/18 03:30 106 25 35 05/01/18 03:00 109 25 124/50 (74) 99 05/01/18 03:00 124/50 05/01/18 02:30 107 20 122/60 (80) 99 05/01/18 02:00 113/53 05/01/18 02:00 108 21 113/53 (73) 99 05/01/18 01:30 110 23 113/57 (75) 98 05/01/18 01:26 111 31 35 05/01/18 01:00 110 21 120/51 (74) 98 18 01:00 120/51 05/01/18 00:30 115 26 106/47 (66) 97 05/01/18 00:00 35 05/01/18 00:00 Mechanical Ventilator 05/01/18 00:00 109/50 05/01/18 00:00 99.2 112 23 109/50 (69) 98 99.2 04/30/18 23:30 125 36 35 04/30/18 23:30 112 23 113/59 (77) 97 04/30/18 23:10 118 9/8/18 23:00 114 23 124/55 (78) 97 04/30/18 23:00 109/53 04/30/18 22:46 100/56 04/30/18 22:30 117 29 100/56 (71) 97 04/30/18 22:00 115 24 115/55 (75) 97 04/30/18 22:00 115/55 04/30/18 21:30 115 22 102/52 (69) 97 04/30/18 21:30 121 32 35 04/30/18 21:00 117 25 97/45 (62) 97 04/30/18 21:00 97/45 04/30/18 20:30 122 32 107/48 (67) 95 Intake and Output 04/30/18 05/01/18 19:00 07:00 Intake Total 1536.6 ml 2717.5 ml Output Total 655 ml 450 ml Balance 881.6 ml 2267.5 ml Intake Oral 0 ml 0 ml Free Water 100 ml IV Total 1536.6 ml 2517.5 ml Tube Feeding 100 ml Output Urine Total 655 ml 450 ml # Bowel Movements 1 Laboratory Tests 04/30/18 22:30: Lactic Acid Level 5.30H 05/01/18 03:55: Lactic Acid Level 4.10H, White Blood Count 13.2#H, Red Blood Count 2.95L, Hemoglobin 9.4L, Hematocrit 27.6L, Mean Corpuscular Volume 94, Mean Corpuscular Hemoglobin 31.8H, Mean Corpuscular Hemoglobin Concent 34.0, Red Cell Distribution Width 12.2, Platelet Count 77L, Mean Platelet Volume 6.2L, Neutrophils (%) (Auto) , Lymphocytes (%) (Auto) , Monocytes (%) (Auto) , Eosinophils (%) (Auto) , Basophils (%) (Auto) , Differential Total Cells Counted 100, Neutrophils % (Manual) 71, Lymphocytes % (Manual) 8L, Monocytes % ( Manual) 7, Eosinophils % (Manual) 0, Basophils % (Manual) 0, Band Neutrophils 14H, Platelet Estimate DecreasedL, Platelet Morphology Normal, Hypochromasia 1+ , Prothrombin Time 34.1H, Prothromb Time International Ratio 3.5H, Sodium Level 132L, Potassium Level 4.0, Chloride Level 101, Carbon Dioxide Level 23, Anion Gap 8, Blood Urea Nitrogen 26H, Creatinine 1.3, Estimat Glomerular Filtration Rate > 60, Glucose Level 159H, Calcium Level 8.3L, Total Bilirubin 9.5H, Direct Bilirubin 5.4H, Aspartate Amino Transf (AST/SGOT) 57H, Alanine Aminotransferase (ALT/SGPT) 30, Alkaline Phosphatase 48, Ammonia 101H, Total Protein 6.1L, Albumin 1.6L, Globulin 4.5, Albumin/Globulin Ratio 0.4L, Alpha Fetoprotein [ Pending] 05/01/18 09:55: Lactic Acid Level 3.90H 05/01/18 13:30: Lactic Acid Level 2.60H 05/01/18 19:45: Lactic Acid Level [Pending] Height (Feet): 5 Height (Inches): 9.00 Weight (Pounds): 305 General Appearance: lethargic, severe distress, agitated, thin EENT: PERRL/EOMI, normal ENT inspection, TMs normal, scleral icterus, other - + NGT Neck: non-tender, supple Cardiovascular: normal peripheral pulses, normal rate, regular rhythm Respiratory/Chest: rhonchi - bilaterally, other - intubated Abdomen: decreased bowel sounds, distended Pelvis: normal external exam Genitourinary/Rectal: other - scrotal edema Extremities: slow capillary refill, swelling Edema: severe edema Neurologic: unresponsive Skin: normal pigmentation, palled Lymphatic: normal anterior cervical (L), normal anterior cervical (R) Jax Oliva MD May 01, 2018 20:16
[2018-05-02] VITALS (24 sets, daily range): BP systolic 102–151; BP diastolic 56–97
[2018-05-02] MEDS: D5NS 1,000 ML IV SCH ×4 (03:08→19:08)
--- NOTE | 2018-05-02 08:11 | Pulmonolgy Critical Care Note ---
Critical Care - Asmt/Plan Problems: (1) Gram negative sepsis (2) Acute kidney failure (3) Hyperbilirubinemia (4) Shock, septic (5) Cellulitis (6) Cirrhosis of liver (7) Lactic acid acidosis (8) Acute encephalopathy (9) Altered mental state (10) Acute respiratory failure without hypercapnia (11) Coagulopathy Respiratory: monitor respiratory rate, weaning trial - Dec PS to 8, if meets other criteria will extubated in 30 min Cardiac: stop pressors, continue to monitor HR/BP Renal: decrease IV fluid - to 50, check electrolytes Infectious Disease: check cultures, continue antibiotics - Carlos Manuel and [place] per ID Gastrointestinal: hold feedings - for extubation, other - paracentesis, will get FFP, F/U GI recs, PPI, lactulose, rifaxamin Endocrine: monitor blood sugar Neurologic: other - Sedation held for extubation, has order for Fent gtt RASS - 2 and PRN Ativan, monitor MS Prophylaxis: Protonix Disposition: keep in ICU Time Spent (Minutes): 60 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, ID, GI Discussed with: nurses, consultants Critical Care - Objective Last 24 Hour Vital Signs Date Time Temp Pulse Resp B/P (MAP) Pulse Ox O2 Delivery O2 Flow Rate FiO2 05/02/18 07:22 120 30 35 05/02/18 07:20 110 21 35 05/02/18 07:00 109 20 108/64 (79) 97 05/02/18 06:00 107 21 102/57 (72) 98 05/02/18 05:00 108 20 114/71 (85) 98 05/02/18 04:58 108 21 35 05/02/18 04:00 98.6 109 20 107/58 (74) 98 98.6 05/02/18 04:00 Mechanical Ventilator 05/02/18 04:00 35 05/02/18 04:00 109 05/02/18 03:00 109 20 104/64 (77) 98 05/02/18 02:58 115 33 35 05/02/18 02:00 111 24 112/64 (80) 98 05/02/18 01:00 114 31 35 05/02/18 01:00 110 25 123/78 (93) 97 05/02/18 00:00 35 05/02/18 00:00 Mechanical Ventilator 05/02/18 00:00 113 05/02/18 00:00 98.2 112 25 107/56 (73) 97 98.2 05/01/18 23:25 115 33 35 05/01/18 23:00 113 25 105/57 (73) 98 05/01/18 22:00 116 25 105/57 (73) 98 18 21:07 112 22 35 05/01/18 20:59 111 22 118/64 (82) 98 114 05/01/18 20:00 115 05/01/18 20:00 26 Mechanical Ventilator 35 05/01/18 20:00 98.0 111 22 118/64 (82) 98 98.0 05/01/18 20:00 35 05/01/18 20:00 Mechanical Ventilator 05/01/18 19:30 114 21 35 05/01/18 19:00 108 19 110/52 (71) 100 05/01/18 18:30 103 19 115/58 (77) 100 05/01/18 18:00 108 19 110/52 (71) 100 05/01/18 17:30 111 18 115/55 (75) 100 05/01/18 17:28 112 24 35 05/01/18 17:03 119/58 05/01/18 17:00 105 19 108/52 (70) 100 05/01/18 16:30 105 19 112/56 (74) 100 05/01/18 16:00 Mechanical Ventilator 05/01/18 16:00 35 05/01/18 16:00 104 05/01/18 16:00 99.0 101 19 110/55 (73) 100 99.0 05/01/18 15:45 109 24 35 05/01/18 15:30 105 19 115/55 (75) 100 05/01/18 15:19 108/56 05/01/18 15:00 108 19 115/60 (78) 100 05/01/18 14:30 105 19 118/64 (82) 100 05/01/18 14:00 101 18 110/60 (77) 100 05/01/18 13:30 104 17 115/65 (82) 100 05/01/18 13:00 108/62 05/01/18 13:00 105 17 116/68 (84) 100 05/01/18 12:30 106 20 35 05/01/18 12:30 103 18 110/70 (83) 100 05/01/18 12:00 105 05/01/18 12:00 99.0 100 18 114/65 (81) 100 99.0 05/01/18 12:00 35 05/01/18 12:00 Mechanical Ventilator 05/01/18 11:30 105 18 118/68 (85) 100 05/01/18 11:00 103 18 113/60 (77) 100 05/01/18 10:49 101 20 35 05/01/18 10:30 98 18 110/55 (73) 100 05/01/18 10:00 101 18 111/59 (76) 100 05/01/18 09:30 102 17 102/56 (71) 100 05/01/18 09:30 102 21 35 05/01/18 09:00 112/60 05/01/18 09:00 102 15 112/60 (77) 99 05/01/18 08:30 102 15 110/67 (81) 99 Status: awake, other - intubated Condition: improving HEENT: atraumatic, normocephalic, other - ETT, NGT Lungs: rhonchi Heart: HR/BP stable Abdomen: soft, non-tender, active bowel sounds, distended Extremities: edema - 2+ SUSAN, LE wounds dressed Micro: Microbiology Date/Time Source Procedure Growth Status 04/29/18 15:40 Blood Blood Culture - Final Providencia Stuartii Complete 04/29/18 15:20 Blood Blood Culture - Final Providencia Stuartii Complete 04/30/18 04:00 Wound Gram Stain - Final Resulted 04/30/18 04:00 Wound Culture - Preliminary Gram Negative Bacillus 1 Staphylococcus Aureus Resulted 04/30/18 18:00 Sputum Induced Gram Stain - Final Resulted 04/30/18 18:00 Sputum Induced Sputum Culture - Preliminary Resulted 04/29/18 17:00 Nasal Nares MRSA Culture - Final NO METHICILLIN RESISTANT STAPH AUREUS... Complete 04/29/18 17:00 Rectum VRE Culture - Final Enterococcus Faecalis - Vre Complete 04/29/18 17:00 Rectum - Final NO CARBAPENEM-RESISTANT ENTEROBACTERI... Complete Accucheck: 54 Critical Care - Subjective ROS Limited/Unobtainable: Yes ICU Day: 4 Intubation Day: 4 Interval Events: Harsh SBT, responds to verbal command, secretions better Condition: improving IV Access: central EKG Rhythm: Sinus Tachycardia FI02: 35 Vent Support Breath Rate: 16 Vent Support Mode: CPAP Vent Tidal Volume: 550 Sputum Amount: Moderate PEEP: 5.0 PIP: 19 Fluids: D5NS@50 Drips: NE off Tube Feeding Amount: 25 I&O: Intake and Output 05/01/18 05/02/18 19:00 07:00 Intake Total 2185.0 ml 1960 ml Output Total 290 ml 475 ml Balance 1895.0 ml 1485 ml Intake Oral 0 ml Free Water 50 ml IV Total 1965.0 ml 1550 ml Tube Feeding 220 ml 300 ml Other 60 ml Output Urine Total 290 ml 475 ml # Voids 1 Subjective: No c/o ET-Tube: 8.0 ET Position: 24 Labs: Laboratory Tests Test 05/01/18 09:55 05/01/18 13:30 05/01/18 19:45 Lactic Acid Level 3.90 mmol/L (0.4-2.0) H 2.60 mmol/L (0.4-2.0) H 1.90 mmol/L (0.4-2.0) Mario Rasmussen MD May 02, 2018 08:11
[2018-05-02] MEDS: Vancomycin 1500mg IVPB SCH ×2 (09:04→19:59)
[2018-05-02] MEDS: Lactulose 20gm/30ml UDC NG SCH ×3 (09:05→17:31)
[2018-05-02] MEDS: Pantoprazole Inj IVP SCH (09:07)
[2018-05-02 11:03] LABS: HEMATOCRIT 28.9 % (42.0-52.0); HEMOGLOBIN 9.7 G/DL (14.2-18.0); MEAN CORPUSCULAR VOLUME 93 FL (80-99); PLATELET COUNT 73 K/UL (150-450); RED BLOOD COUNT 3.11 M/UL (4.70-6.10); RED CELL DISTRIBUTION WIDTH 12.3 % (11.6-14.8); WHITE BLOOD COUNT 16.7 K/UL (4.8-10.8)
--- NOTE | 2018-05-02 11:33 | General Progress Note ---
Assessment/Plan Status: not improved, unchanged Assessment/Plan #Septic Shock/severe sepsis with end organ damage #Gram negative sepsis- Providencia stuartii -Lactic acid elevated; BP decreased -Emergent central line placed and vasoactive medications/pressors (Levophed) started- weaning off today if able -Dr. Rasmussen's/Pulmonary input and guidance appreciated -Continue broad spectrum IV antibiotics -ID recs appreciated #Cirrhosis, decompensated #End stage liver disease #coagulopathy -Gastroenterology input appreciated -paracentesis with peritoneal fluid analysis - NGT - placed by GI --> bilious return - restarted lactulose and Trental - PPI - check AFP - vitamin K #AGNIESZKA -Likely secondary to sepsis/hypovolemia -continue IVF's/vasopressor support- wean off pressors if able #acute encephalopathy -Likely secondary to septic shock vs hepatic encephalopathy -On sedative/hypnotics currently given intubation -lactulose #acute respiratory failure -vent management per Pulmonary -Wean trial planned for today DVT Prophylaxis: scd's Code status: full Hospital Classification declaration: Based on this initial evaluation, and depending on the patient's clinical course, I anticipate that this patient will require hospitalization for 5-7 days. Disposition: Once the patient is stable to leave the hospital, I anticipate the patient will likely be discharged to the following environment:SNF I spent 45 minutes on this patient's case, and 30minutes was dedicated to counseling and/or care coordination. Time of note may not reflect time of encounter. Subjective Date patient seen: May 02, 2018 Time patient seen: 11:33 ROS Limited/Unobtainable: Yes Allergies: Coded Allergies: No Known Allergies (Unverified , 04/29/18) All Systems: reviewed and negative except above Subjective Events of overnight noted Chart reviewed by me Patient intubated and not responsive Pressors being weaned off Objective Last 24 Hour Vital Signs Date Time Temp Pulse Resp B/P (MAP) Pulse Ox O2 Delivery O2 Flow Rate FiO2 05/02/18 11:00 138 37 151/82 (105) 97 05/02/18 10:00 133 32 137/71 (93) 97 05/02/18 09:08 132/59 05/02/18 09:00 123 31 129/59 (82) 97 05/02/18 08:30 120 30 35 05/02/18 08:30 95 05/02/18 08:00 120 05/02/18 08:00 98.8 108 22 111/65 (80) 98 98.8 05/02/18 08:00 Mechanical Ventilator 05/02/18 08:00 35 05/02/18 07:22 120 30 35 05/02/18 07:20 110 21 35 05/02/18 07:00 109 20 108/64 (79) 97 05/02/18 06:00 107 21 102/57 (72) 98 05/02/18 05:00 108 20 114/71 (85) 98 05/02/18 04:58 108 21 35 05/02/18 04:00 98.6 109 20 107/58 (74) 98 98.6 05/02/18 04:00 Mechanical Ventilator 05/02/18 04:00 35 05/02/18 04:00 109 05/02/18 03:00 109 20 104/64 (77) 98 05/02/18 02:58 115 33 35 05/02/18 02:00 111 24 112/64 (80) 98 05/02/18 01:00 114 31 35 05/02/18 01:00 110 25 123/78 (93) 97 05/02/18 00:00 35 05/02/18 00:00 Mechanical Ventilator 05/02/18 00:00 113 05/02/18 00:00 98.2 112 25 107/56 (73) 97 98.2 05/01/18 23:25 115 33 35 05/01/18 23:00 113 25 105/57 (73) 98 05/01/18 22:00 116 25 105/57 (73) 98 05/01/18 21:07 112 22 35 05/01/18 20:59 111 22 118/64 (82) 98 114 05/01/18 20:00 115 05/01/18 20:00 26 Mechanical Ventilator 35 05/01/18 20:00 98.0 111 22 118/64 (82) 98 98.0 05/01/18 20:00 35 05/01/18 20:00 Mechanical Ventilator 05/01/18 19:30 114 21 35 05/01/18 19:00 108 19 110/52 (71) 100 05/01/18 18:30 103 19 115/58 (77) 100 05/01/18 18:00 108 19 110/52 (71) 100 05/01/18 17:30 111 18 115/55 (75) 100 05/01/18 17:28 112 24 35 05/01/18 17:03 119/58 05/01/18 17:00 105 19 108/52 (70) 100 05/01/18 16:30 105 19 112/56 (74) 100 05/01/18 16:00 Mechanical Ventilator 05/01/18 16:00 35 05/01/18 16:00 104 05/01/18 16:00 99.0 101 19 110/55 (73) 100 99.0 05/01/18 15:45 109 24 35 05/01/18 15:30 105 19 115/55 (75) 100 05/01/18 15:19 108/56 05/01/18 15:00 108 19 115/60 (78) 100 05/01/18 14:30 105 19 118/64 (82) 100 05/01/18 14:00 101 18 110/60 (77) 100 05/01/18 13:30 104 17 115/65 (82) 100 05/01/18 13:00 108/62 05/01/18 13:00 105 17 116/68 (84) 100 05/01/18 12:30 106 20 35 05/01/18 12:30 103 18 110/70 (83) 100 05/01/18 12:00 105 05/01/18 12:00 99.0 100 18 114/65 (81) 100 99.0 05/01/18 12:00 35 05/01/18 12:00 Mechanical Ventilator Intake and Output 05/01/18 05/02/18 19:00 07:00 Intake Total 2185.0 ml 1960 ml Output Total 290 ml 475 ml Balance 1895.0 ml 1485 ml Intake Oral 0 ml Free Water 50 ml IV Total 1965.0 ml 1550 ml Tube Feeding 220 ml 300 ml Other 60 ml Output Urine Total 290 ml 475 ml # Voids 1 Laboratory Tests 05/01/18 13:30: Lactic Acid Level 2.60H 05/01/18 19:45: Lactic Acid Level 1.90 05/02/18 09:19: Arterial Blood pH 7.397, Arterial Blood Partial Pressure CO2 41.5, Arterial Blood Partial Pressure O2 79.8, Arterial Blood HCO3 25.0, Arterial Blood Oxygen Saturation 95.1, Arterial Blood Base Excess 0.1, Johan Test Positive 05/02/18 10:30: White Blood Count 16.7H, Red Blood Count 3.11L, Hemoglobin 9.7L, Hematocrit 28.9L, Mean Corpuscular Volume 93, Mean Corpuscular Hemoglobin 31.0, Mean Corpuscular Hemoglobin Concent 33.4, Red Cell Distribution Width 12.3, Platelet Count 73L, Mean Platelet Volume 6.9, Neutrophils (%) (Auto) , Lymphocytes (%) ( Auto) , Monocytes (%) (Auto) , Eosinophils (%) (Auto) , Basophils (%) (Auto) , Sodium Level [Pending], Potassium Level [Pending], Chloride Level [Pending], Carbon Dioxide Level [Pending], Blood Urea Nitrogen [Pending], Creatinine [ Pending], Estimat Glomerular Filtration Rate [Pending], Glucose Level [Pending] , Calcium Level [Pending], Total Bilirubin [Pending], Aspartate Amino Transf ( AST/SGOT) [Pending], Alanine Aminotransferase (ALT/SGPT) [Pending], Alkaline Phosphatase [Pending], Total Protein [Pending], Albumin [Pending], Globulin [ Pending] Height (Feet): 5 Height (Inches): 9.00 Weight (Pounds): 311 General Appearance: moderate distress, thin EENT: PERRL/EOMI, TMs normal, scleral icterus Neck: non-tender, supple Cardiovascular: normal peripheral pulses, normal rate, regular rhythm Respiratory/Chest: decreased breath sounds, rhonchi - bilaterally Abdomen: hypoactive bowel sounds, distended Pelvis: normal external exam Genitourinary/Rectal: other - scrotal edema Extremities: slow capillary refill Edema: severe edema Neurologic: unresponsive Skin: jaundice, mottled Lymphatic: normal anterior cervical (L), normal anterior cervical (R) Jax Oliva MD May 02, 2018 11:33
[2018-05-02 11:36] LABS: ALANINE AMINOTRANSFERASE 33 U/L (12-78); ALBUMIN 1.7 G/DL (3.4-5.0); ALBUMIN/GLOBULIN RATIO 0.3 (1.0-2.7); ALKALINE PHOSPHATASE 106 U/L (46-116); ANION GAP 2 mmol/L (5-15); ASPARTATE AMINO TRANSFERASE 64 U/L (15-37); BILIRUBIN,TOTAL 6.7 MG/DL (0.2-1.0); BLOOD UREA NITROGEN 34 mg/dL (7-18); CALCIUM 8.3 MG/DL (8.5-10.1); CARBON DIOXIDE 28 MMOL/L (21-32); CHLORIDE 103 MMOL/L (98-107); CREATININE 1.3 MG/DL (0.55-1.30); POTASSIUM 3.7 MMOL/L (3.5-5.1); SODIUM 133 MMOL/L (136-145)
[2018-05-02 11:48] LABS: BILIRUBIN,DIRECT 3.9 MG/DL (0.0-0.3)
[2018-05-02] MEDS: Midazolam/D5W 100ml 100 ML IVPB SCH (15:15)
--- NOTE | 2018-05-02 16:15 | Infectious Diseases Prog Note ---
Assessment/Plan Assessment/Plan ASSESSMENT AND PLAN: 1. sepsis, shock, providencia bacteremia, likely GI source, ? SBP, mrsa/proteus right leg wound infection, right leg cellulitis, ? pna, leukocytosis, fevers - meropenem and vancomycin - await paracentesis, f/u on cultures, labs and chest x-ray - vent support, icu care - off pressors 2. Liver cirrhosis. 3. Portal hypertension. 4. Ascites. 5. Anemia. 6. Thrombocytopenia. 7. Respiratory failure. 8. Low blood pressure. 9. Sepsis, shock. 10. Varices. 11. ETOH hepatitis. 12. Coagulopathy. 13. Altered mental status 14. hepatic encephalopathy 15. Past medical history noted. 16. He has no known allergies. 17. Social history is presumptively I think positive for ETOH. Cannot assess smoking or IV drug abuse. 18. Family history is noncontributory. 19. MAR was noted. 20. Case discussed with RN. 21. ICU care. 22. Case discussed with Dr. Rasmussen. 23. Continue treatment per primary consultants. 24. Poor prognosis. 25. Orders were entered and noted. Subjective Constitutional: Reports: fatigue, other - opens eyes ; Denies: fever HEENT: Reports: congestion Respiratory: Reports: shortness of breath Cardiovascular: Reports: other - off pressors Gastrointestinal/Abdominal: Denies: nausea, diarrhea Genitourinary: Reports: other - + grimm Neurologic: Reports: weakness, other - more alert, opens eyes Psychiatric: Reports: no symptoms Skin: Denies: rash Hematologic: Denies: bleeding Musculoskeletal: Reports: no symptoms Allergies: Coded Allergies: No Known Allergies (Unverified , 04/29/18) Objective Vital Signs Last 24 Hour Vital Signs Date Time Temp Pulse Resp B/P (MAP) Pulse Ox O2 Delivery O2 Flow Rate FiO2 05/02/18 15:00 107 19 109/61 (77) 100 05/02/18 14:00 105 19 110/60 (77) 100 05/02/18 13:57 116/68 05/02/18 13:05 111 22 35 05/02/18 13:00 112 19 111/60 (77) 100 05/02/18 12:00 98.1 109 22 111/65 (80) 98 98.1 05/02/18 12:00 35 05/02/18 12:00 109 05/02/18 12:00 Mechanical Ventilator 05/02/18 11:00 138 37 151/82 (105) 97 05/02/18 11:00 124 23 35 05/02/18 10:00 133 32 137/71 (93) 97 05/02/18 09:08 132/59 05/02/18 09:00 123 31 129/59 (82) 97 05/02/18 08:30 120 30 35 05/02/18 08:30 95 05/02/18 08:00 120 05/02/18 08:00 98.8 108 22 111/65 (80) 98 98.8 05/02/18 08:00 Mechanical Ventilator 05/02/18 08:00 35 05/02/18 07:22 120 30 35 05/02/18 07:20 110 21 35 05/02/18 07:00 109 20 108/64 (79) 97 05/02/18 06:00 107 21 102/57 (72) 98 05/02/18 05:00 108 20 114/71 (85) 98 05/02/18 04:58 108 21 35 05/02/18 04:00 98.6 109 20 107/58 (74) 98 98.6 05/02/18 04:00 Mechanical Ventilator 05/02/18 04:00 35 05/02/18 04:00 109 05/02/18 03:00 109 20 104/64 (77) 98 05/02/18 02:58 115 33 35 05/02/18 02:00 111 24 112/64 (80) 98 05/02/18 01:00 114 31 35 05/02/18 01:00 110 25 123/78 (93) 97 05/02/18 00:00 35 05/02/18 00:00 Mechanical Ventilator 05/02/18 00:00 113 05/02/18 00:00 98.2 112 25 107/56 (73) 97 98.2 05/01/18 23:25 115 33 35 05/01/18 23:00 113 25 105/57 (73) 98 05/01/18 22:00 116 25 105/57 (73) 98 05/01/18 21:07 112 22 35 05/01/18 20:59 111 22 118/64 (82) 98 114 05/01/18 20:00 115 05/01/18 20:00 26 Mechanical Ventilator 35 05/01/18 20:00 98.0 111 22 118/64 (82) 98 98.0 05/01/18 20:00 35 05/01/18 20:00 Mechanical Ventilator 05/01/18 19:30 114 21 35 05/01/18 19:00 108 19 110/52 (71) 100 05/01/18 18:30 103 19 115/58 (77) 100 05/01/18 18:00 108 19 110/52 (71) 100 05/01/18 17:30 111 18 115/55 (75) 100 05/01/18 17:28 112 24 35 05/01/18 17:03 119/58 05/01/18 17:00 105 19 108/52 (70) 100 05/01/18 16:30 105 19 112/56 (74) 100 Height (Feet): 5 Height (Inches): 9.00 Weight (Pounds): 311 General Appearance: other - + vent, off pressors HEENT: normocephalic, atraumatic Respiratory/Chest: crackles/rales, rhonchi - bilaterally Cardiovascular: normal rate, regular rhythm, no gallop/murmur, tachycardia Abdomen: normal bowel sounds, soft, non tender, distended Genitourinary: other - + grimm - urine clear Extremities: no cyanosis Skin: no rash Neurologic/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 Right internal jugular, grossly unchanged. Nasogastric tube in gastric cavity. Endotracheal tube 5 cm above the pamela. Increasing opacity in bilateral mid to lower lung zones. No pleural effusions. The visualized osseous structures are within normal limits. IMPRESSION: Stable tubes and lines as outlined above. Increasing opacity in bilateral mid to lower lung zones. CT imaging noted - reports noted Microbiology Date/Time Source Procedure Growth Status 04/30/18 04:00 Wound Gram Stain - Final Complete 04/30/18 04:00 Wound Culture - Final Proteus Mirabilis Staphylococcus Aureus - Mrsa Complete 04/30/18 18:00 Sputum Induced Gram Stain - Final Resulted 04/30/18 18:00 Sputum Induced Sputum Culture - Preliminary Resulted 04/29/18 17:00 Nasal Nares MRSA Culture - Final NO METHICILLIN RESISTANT STAPH AUREUS... Complete 04/29/18 17:00 Rectum VRE Culture - Final Enterococcus Faecalis - Vre Complete 04/29/18 17:00 Rectum - Final NO CARBAPENEM-RESISTANT ENTEROBACTERI... Complete Laboratory Tests Test 05/01/18 19:45 05/02/18 09:19 05/02/18 10:30 Lactic Acid Level 1.90 mmol/L (0.4-2.0) Arterial Blood pH 7.397 (7.350-7.450) Arterial Blood Partial Pressure CO2 41.5 mmHg (35.0-45.0) Arterial Blood Partial Pressure O2 79.8 mmHg (75.0-100.0) Arterial Blood HCO3 25.0 mmol/L (22.0-26.0) Arterial Blood Oxygen Saturation 95.1 % (92.0-98.0) Arterial Blood Base Excess 0.1 Johan Test Positive White Blood Count 16.7 K/UL (4.8-10.8) H Red Blood Count 3.11 M/UL (4.70-6.10) L Hemoglobin 9.7 G/DL (14.2-18.0) L Hematocrit 28.9 % (42.0-52.0) L Mean Corpuscular Volume 93 FL (80-99) Mean Corpuscular Hemoglobin 31.0 PG (27.0-31.0) Mean Corpuscular Hemoglobin Concent 33.4 G/DL (32.0-36.0) Red Cell Distribution Width 12.3 % (11.6-14.8) Platelet Count 73 K/UL (150-450) L Mean Platelet Volume 6.9 FL (6.5-10.1) Neutrophils (%) (Auto) % (45.0-75.0) Lymphocytes (%) (Auto) % (20.0-45.0) Monocytes (%) (Auto) % (1.0-10.0) Eosinophils (%) (Auto) % (0.0-3.0) Basophils (%) (Auto) % (0.0-2.0) Differential Total Cells Counted 100 Neutrophils % (Manual) 68 % (45-75) Lymphocytes % (Manual) 7 % (20-45) L Monocytes % (Manual) 8 % (1-10) Eosinophils % (Manual) 3 % (0-3) Basophils % (Manual) 0 % (0-2) Band Neutrophils 14 % (0-8) H Platelet Estimate Decreased L Platelet Morphology Normal Anisocytosis 1+ Sodium Level 133 MMOL/L (136-145) L Potassium Level 3.7 MMOL/L (3.5-5.1) Chloride Level 103 MMOL/L (98-107) Carbon Dioxide Level 28 MMOL/L (21-32) Anion Gap 2 mmol/L (5-15) L Blood Urea Nitrogen 34 mg/dL (7-18) H Creatinine 1.3 MG/DL (0.55-1.30) Estimat Glomerular Filtration Rate > 60 mL/min (>60) Glucose Level 174 MG/DL (74-106) H Calcium Level 8.3 MG/DL (8.5-10.1) L Total Bilirubin 6.7 MG/DL (0.2-1.0) H Direct Bilirubin 3.9 MG/DL (0.0-0.3) H Aspartate Amino Transf (AST/SGOT) 64 U/L (15-37) H Alanine Aminotransferase (ALT/SGPT) 33 U/L (12-78) Alkaline Phosphatase 106 U/L (46-116) Total Protein 6.6 G/DL (6.4-8.2) Albumin 1.7 G/DL (3.4-5.0) L Globulin 4.9 g/dL Albumin/Globulin Ratio 0.3 (1.0-2.7) L Current Medications Medications (Trade) Dose Ordered Sig/Ry Route PRN Reason Start Time Stop Time Status Last Admin Dose Admin Chlorhexidine Gluconate (Fatemeh-Hex 2%) 1 applic DAILY@2000 TOPIC 05/01/18 20:00 05/31/18 19:59 05/01/18 19:42 Dextrose/Sodium Chloride 1,000 ml @ 50 mls/hr Q20H IV 05/02/18 08:15 05/31/18 08:14 05/02/18 14:16 Fentanyl Citrate 1000 mcg/Sodium Chloride 100 ml @ 0 mls/hr Q24H IV 04/30/18 20:00 05/07/18 19:59 Lactulose (Cephulac) 20 gm THREE TIMES A DAY NG 04/30/18 13:00 05/30/18 12:59 05/02/18 13:57 Lorazepam (Ativan 2mg/ml 1ml) 2 mg Q4H PRN IV For Anxiety 04/30/18 13:30 05/07/18 13:29 05/01/18 04:07 Meropenem 1 gm/ Sodium Chloride 100 ml @ 200 mls/hr Q8H IVPB 04/30/18 17:00 05/05/18 16:59 05/02/18 09:08 Midazolam HCl 100 ml @ 0 mls/hr Q24H IVPB 04/30/18 15:15 05/07/18 15:14 Midazolam HCl (Versed 2mg/2ml vial) 2 mg Q2H PRN IVP Agitation 04/30/18 19:45 05/30/18 19:44 Norepinephrine Bitartrate 4 mg/ Dextrose 250 ml @ 0 mls/hr Q24H IV 04/30/18 15:30 05/30/18 15:29 05/01/18 15:19 Pantoprazole (Protonix) 40 mg DAILY IVP 04/30/18 09:00 05/30/18 08:59 05/02/18 09:07 Pentoxifylline (TRENtal) 400 mg THREE TIMES A DAY ORAL 05/01/18 09:00 05/31/18 08:59 05/02/18 13:57 Rifaximin (Xifaxan) 550 mg EVERY 12 HOURS NG 05/01/18 09:00 05/08/18 08:59 05/02/18 09:05 Vancomycin HCl (Vanco rx to dose) 1 ea DAILY PRN MISC Per rx protocol 04/29/18 22:00 05/29/18 21:59 Vancomycin HCl/ Dextrose 250 ml @ 125 mls/hr Q12HR@0800,2000 IVPB 04/30/18 08:00 05/05/18 07:59 05/02/18 09:04 Doris Ramos MD May 02, 2018 16:15
[2018-05-02] MEDS: Dyna-Hex 2% Top Sol 2oz TOPIC SCH (19:59)
--- NOTE | 2018-05-02 23:23 | General Progress Note ---
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 WBC rising Bili falling Lactic acidosis resolved paracentesis not does due to coagulopathy Objective Last 24 Hour Vital Signs Date Time Temp Pulse Resp B/P (MAP) Pulse Ox O2 Delivery O2 Flow Rate FiO2 05/02/18 23:00 104 23 109/60 (76) 95 05/02/18 22:58 106 23 35 05/02/18 22:00 110 27 103/58 (73) 100 05/02/18 21:06 104 24 35 05/02/18 21:00 108 28 115/97 (103) 95 05/02/18 20:00 99.0 104 24 116/94 (101) 97 99.0 05/02/18 20:00 27 Mechanical Ventilator 35 05/02/18 20:00 35 05/02/18 20:00 Mechanical Ventilator 05/02/18 19:29 107 05/02/18 19:04 106 24 35 05/02/18 19:00 107 22 107/61 (76) 96 05/02/18 18:00 104 19 107/60 (76) 100 05/02/18 17:31 112/58 05/02/18 17:25 104 24 35 05/02/18 17:00 103 19 112/57 (75) 100 05/02/18 16:00 35 05/02/18 16:00 103 05/02/18 16:00 Mechanical Ventilator 05/02/18 16:00 99.0 104 20 119/60 (79) 97 99.0 05/02/18 15:15 108 24 35 05/02/18 15:00 107 19 109/61 (77) 100 05/02/18 14:00 105 19 110/60 (77) 100 05/02/18 13:57 116/68 05/02/18 13:05 111 22 35 05/02/18 13:00 112 19 111/60 (77) 100 05/02/18 12:00 98.1 109 22 111/65 (80) 98 98.1 05/02/18 12:00 35 05/02/18 12:00 109 05/02/18 12:00 Mechanical Ventilator 05/02/18 11:00 138 37 151/82 (105) 97 05/02/18 11:00 124 23 35 05/02/18 10:00 133 32 137/71 (93) 97 05/02/18 09:08 132/59 05/02/18 09:00 123 31 129/59 (82) 97 05/02/18 08:30 120 30 35 05/02/18 08:30 95 05/02/18 08:00 120 05/02/18 08:00 98.8 108 22 111/65 (80) 98 98.8 05/02/18 08:00 Mechanical Ventilator 05/02/18 08:00 35 05/02/18 07:22 120 30 35 05/02/18 07:20 110 21 35 05/02/18 07:00 109 20 108/64 (79) 97 05/02/18 06:00 107 21 102/57 (72) 98 05/02/18 05:00 108 20 114/71 (85) 98 05/02/18 04:58 108 21 35 05/02/18 04:00 98.6 109 20 107/58 (74) 98 98.6 05/02/18 04:00 Mechanical Ventilator 05/02/18 04:00 35 05/02/18 04:00 109 05/02/18 03:00 109 20 104/64 (77) 98 05/02/18 02:58 115 33 35 05/02/18 02:00 111 24 112/64 (80) 98 05/02/18 01:00 114 31 35 05/02/18 01:00 110 25 123/78 (93) 97 05/02/18 00:00 35 05/02/18 00:00 Mechanical Ventilator 05/02/18 00:00 113 05/02/18 00:00 98.2 112 25 107/56 (73) 97 98.2 05/01/18 23:25 115 33 35 Intake and Output 05/01/18 05/02/18 19:00 07:00 Intake Total 2185.0 ml 1960 ml Output Total 290 ml 475 ml Balance 1895.0 ml 1485 ml Intake Oral 0 ml Free Water 50 ml IV Total 1965.0 ml 1550 ml Tube Feeding 220 ml 300 ml Other 60 ml Output Urine Total 290 ml 475 ml # Voids 1 Laboratory Tests 05/02/18 09:19: Arterial Blood pH 7.397, Arterial Blood Partial Pressure CO2 41.5, Arterial Blood Partial Pressure O2 79.8, Arterial Blood HCO3 25.0, Arterial Blood Oxygen Saturation 95.1, Arterial Blood Base Excess 0.1, Johan Test Positive 05/02/18 10:30: White Blood Count 16.7H, Red Blood Count 3.11L, Hemoglobin 9.7L, Hematocrit 28.9L, Mean Corpuscular Volume 93, Mean Corpuscular Hemoglobin 31.0, Mean Corpuscular Hemoglobin Concent 33.4, Red Cell Distribution Width 12.3, Platelet Count 73L, Mean Platelet Volume 6.9, Neutrophils (%) (Auto) , Lymphocytes (%) ( Auto) , Monocytes (%) (Auto) , Eosinophils (%) (Auto) , Basophils (%) (Auto) , Differential Total Cells Counted 100, Neutrophils % (Manual) 68, Lymphocytes % ( Manual) 7L, Monocytes % (Manual) 8, Eosinophils % (Manual) 3, Basophils % ( Manual) 0, Band Neutrophils 14H, Platelet Estimate DecreasedL, Platelet Morphology Normal, Anisocytosis 1+, Sodium Level 133L, Potassium Level 3.7, Chloride Level 103, Carbon Dioxide Level 28, Anion Gap 2L, Blood Urea Nitrogen 34H, Creatinine 1.3, Estimat Glomerular Filtration Rate > 60, Glucose Level 174H , Calcium Level 8.3L, Total Bilirubin 6.7H, Direct Bilirubin 3.9H, Aspartate Amino Transf (AST/SGOT) 64H, Alanine Aminotransferase (ALT/SGPT) 33, Alkaline Phosphatase 106, Total Protein 6.6, Albumin 1.7L, Globulin 4.9, Albumin/ Globulin Ratio 0.3L Height (Feet): 5 Height (Inches): 9.00 Weight (Pounds): 311 Objective WDWN WM NCAT supple CTA RRR Soft / Obese trace edema sedated Pierre Suggs MD May 02, 2018 23:23
--- NOTE | 2018-05-02 23:45 | Consultation ---
DATE OF CONSULTATION: 05/02/2018 HEMATOLOGY/ONCOLOGY CONSULTATION CONSULTING PHYSICIAN: Eric Irizarry M.D. REQUESTING PHYSICIANS: Gina Juárez M.D. and Dr. Oliva. REASON FOR CONSULTATION: Evaluation of anemia, thrombocytopenia. IDENTIFYING DATA: Dear Dr. Juárez and Dr. Oliva, The patient is a pleasant 57-year-old male, presents to the hospital, apparently has a history of coagulopathy, cirrhosis, end-stage liver disease, AGNIESZKA, and acute encephalopathy, on presentation noted to be in septic shock. This is his first admission here, and ID Service was then consulted for gram-negative bacteremia, intubated. Dr. Rasmussen evaluated the patient as well, evaluated for transaminitis. Hematology Service was consulted given ongoing blood dyscrasias. PAST MEDICAL HISTORY: , portal hypertension, cirrhosis, alcoholic hepatitis, ascites, and history of hepatic encephalopathy. MEDICATIONS: Lorazepam, lactulose, Versed, meropenem, vancomycin, amikacin, norepinephrine, pantoprazole, and cefepime. ALLERGIES: No known drug allergies. SOCIAL HISTORY: He has a history of what appears to be alcohol abuse. No history of smoking or IV drug use. FAMILY HISTORY: Noncontributory. REVIEW OF SYSTEMS: CONSTITUTIONAL: No fevers, chills, or night sweats. SKIN: No rashes, bumps, or itching. HEENT: No headache, hearing or visual changes. BREASTS: No lumps, pain, or discharge. PULMONARY: No cough, sputum, or shortness of breath. GASTROINTESTINAL: No nausea, vomiting, or diarrhea. GENITOURINARY: No dysuria, frequency, or urgency. MUSCULOSKELETAL: No joint swelling, muscle pain, or trauma. PHYSICAL EXAMINATION: VITAL SIGNS: Reviewed. GENERAL: No acute distress. PULMONARY: Decreased breath sounds. Some crackles noted. CARDIOVASCULAR: Regular rate. No S3 or S4. ABDOMEN: Soft, nontender, and nondistended. EXTREMITIES: There is 1 to 2+ edema. LABORATORY AND DIAGNOSTIC DATA: WBC is 16,000, hemoglobin 9.5, and platelet count 78,000. ASSESSMENT AND RECOMMENDATION: 1. Thrombocytopenia, potentially secondary to septic shock, severe sepsis, end-organ damage, closely monitor, platelet count downtrending, peripheral smear has been reviewed. The patient continues to have lactic acidosis, improved at this time and, in addition, imaging reviewed. The patient noted to be with cirrhosis with portal hypertension, expected coagulopathy. 2. Coagulopathy with portal hypertension, cirrhosis of liver, large volume ascites, requires paracentesis and requires vitamin K and I agree with the use of vitamin K at this time, and also, the patient may need fresh frozen plasma. 3. Leukocytosis, likely secondary to underlying infection, potentially related to underlying sepsis versus other causes such as SBP, but again has been seen by GI team and pending paracentesis fluid analysis as well as AFP. 4. AGNIESZKA, on IV fluids. . 5. Acute encephalopathy. 6. Septic shock. I appreciate the consultation. Eric Irizarry M.D. DR: YOSELIN JOB#: [id number] CC:
[2018-05-03] VITALS (24 sets, daily range): BP systolic 85–140; BP diastolic 49–77
[2018-05-03 06:26] LABS: HEMATOCRIT 24.5 % (42.0-52.0); HEMOGLOBIN 8.3 G/DL (14.2-18.0); MEAN CORPUSCULAR VOLUME 93 FL (80-99); PLATELET COUNT 46 K/UL (150-450); RED BLOOD COUNT 2.64 M/UL (4.70-6.10); RED CELL DISTRIBUTION WIDTH 11.9 % (11.6-14.8); WHITE BLOOD COUNT 8.8 K/UL (4.8-10.8)
[2018-05-03 06:36] LABS: INR 1.9 (0.9-1.1)
[2018-05-03 06:49] LABS: ALANINE AMINOTRANSFERASE 35 U/L (12-78); ALBUMIN 1.7 G/DL (3.4-5.0); ALKALINE PHOSPHATASE 91 U/L (46-116); ANION GAP 3 mmol/L (5-15); ASPARTATE AMINO TRANSFERASE 72 U/L (15-37); BILIRUBIN,TOTAL 6.2 MG/DL (0.2-1.0); BLOOD UREA NITROGEN 35 mg/dL (7-18); CALCIUM 8.3 MG/DL (8.5-10.1); CARBON DIOXIDE 28 MMOL/L (21-32); CHLORIDE 105 MMOL/L (98-107); CREATININE 1.3 MG/DL (0.55-1.30); POTASSIUM 3.8 MMOL/L (3.5-5.1); SODIUM 136 MMOL/L (136-145)
[2018-05-03] MEDS: Vancomycin 1500mg IVPB SCH ×2 (08:00→21:34)
[2018-05-03] MEDS: Pantoprazole Inj IVP SCH (08:42)
[2018-05-03] MEDS: Lactulose 20gm/30ml UDC NG SCH ×3 (08:43→18:13)
--- NOTE | 2018-05-03 08:43 | Pulmonolgy Critical Care Note ---
Critical Care - Asmt/Plan Problems: (1) Gram negative sepsis (2) Acute kidney failure (3) Hyperbilirubinemia (4) Shock, septic (5) Cellulitis (6) Cirrhosis of liver (7) Lactic acid acidosis (8) Acute encephalopathy (9) Altered mental state (10) Acute respiratory failure without hypercapnia (11) Coagulopathy (12) Thrombocytopenia Respiratory: monitor respiratory rate, weaning trial - after diuresis and para Cardiac: continue to monitor HR/BP Renal: check electrolytes, other - D/C IVF, lasix 40 IV x 1 Infectious Disease: continue antibiotics - Carlos Manuel and Vanco per ID Gastrointestinal: hold feedings Endocrine: monitor blood sugar Hematologic: monitor H/H, other - monitor plt, transfuse PRN < 20, PRN FFP, F/ U heme recs Neurologic: keep patient comfortable - sedation held Prophylaxis: Protonix, SCDs Disposition: keep in ICU Time Spent (Minutes): 60 Notes Reviewed: sba underwriter, GI, 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 Discussed with: nurses, consultants Critical Care - Objective Last 24 Hour Vital Signs Date Time Temp Pulse Resp B/P (MAP) Pulse Ox O2 Delivery O2 Flow Rate FiO2 05/03/18 07:22 99 24 35 05/03/18 07:00 103 27 100/54 (69) 97 05/03/18 06:00 98 28 101/58 (72) 96 05/03/18 05:29 104 29 35 05/03/18 05:00 106 30 107/55 (72) 98 05/03/18 04:00 Mechanical Ventilator 05/03/18 04:00 98.8 105 30 104/53 (70) 96 98.8 05/03/18 04:00 35 05/03/18 03:04 108 05/03/18 03:00 109 30 109/58 (75) 94 05/03/18 02:44 97 28 35 05/03/18 02:00 100 25 105/57 (73) 94 05/03/18 01:00 109 30 111/59 (76) 93 05/03/18 00:48 102 23 35 05/03/18 00:00 Mechanical Ventilator 05/03/18 00:00 35 05/03/18 00:00 98.7 108 28 105/64 (78) 93 98.7 05/02/18 23:09 107 05/02/18 23:00 104 23 109/60 (76) 95 05/02/18 22:58 106 23 35 05/02/18 22:00 110 27 103/58 (73) 100 05/02/18 21:06 104 24 35 05/02/18 21:00 108 28 115/97 (103) 95 05/02/18 20:00 99.0 104 24 116/94 (101) 97 99.0 05/02/18 20:00 27 Mechanical Ventilator 35 05/02/18 20:00 35 05/02/18 20:00 Mechanical Ventilator 05/02/18 19:29 107 05/02/18 19:04 106 24 35 05/02/18 19:00 107 22 107/61 (76) 96 05/02/18 18:00 104 19 107/60 (76) 100 05/02/18 17:31 112/58 05/02/18 17:25 104 24 35 05/02/18 17:00 103 19 112/57 (75) 100 05/02/18 16:00 35 05/02/18 16:00 103 05/02/18 16:00 Mechanical Ventilator 05/02/18 16:00 99.0 104 20 119/60 (79) 97 99.0 05/02/18 15:15 108 24 35 05/02/18 15:00 107 19 109/61 (77) 100 05/02/18 14:00 105 19 110/60 (77) 100 05/02/18 13:57 116/68 05/02/18 13:05 111 22 35 05/02/18 13:00 112 19 111/60 (77) 100 05/02/18 12:00 98.1 109 22 111/65 (80) 98 98.1 05/02/18 12:00 35 05/02/18 12:00 109 05/02/18 12:00 Mechanical Ventilator 05/02/18 11:00 138 37 151/82 (105) 97 05/02/18 11:00 124 23 35 05/02/18 10:00 133 32 137/71 (93) 97 05/02/18 09:08 132/59 05/02/18 09:00 123 31 129/59 (82) 97 Status: awake, other - obese Condition: critical HEENT: atraumatic, normocephalic, other - ETT, NGT Lungs: rhonchi Heart: HR/BP stable Abdomen: soft, non-tender, distended Extremities: edema - 2+ edema, bLE dressed Micro: Microbiology Date/Time Source Procedure Growth Status 04/30/18 18:00 Sputum Induced Gram Stain - Final Resulted 04/30/18 18:00 Sputum Culture - Preliminary Staphylococcus Aureus YEAST Resulted Accucheck: 54 Critical Care - Subjective ROS Limited/Unobtainable: Yes ICU Day: 5 Intubation Day: 5 Interval Events: Failed SBT 2/2 tachycardia and tachypnea Para not done Off pressors Condition: critical IV Access: central EKG Rhythm: Sinus Tachycardia FI02: 35 Vent Support Breath Rate: 16 Vent Support Mode: AC Vent Tidal Volume: 550 Sputum Amount: Moderate PEEP: 5.0 PIP: 38 Fluids: D5NS@50 Tube Feeding Amount: 25 I&O: Intake and Output 05/02/18 05/03/18 19:00 07:00 Intake Total 1225 ml 1000 ml Output Total 770 ml 620 ml Balance 455 ml 380 ml IV Total 1200 ml 950 ml Tube Feeding 25 ml Other 50 ml Output Urine Total 770 ml 620 ml # Bowel Movements 3 Subjective: No c/o ET-Tube: 8.0 ET Position: 24 Labs: Laboratory Tests Test 05/02/18 09:19 05/02/18 10:30 05/03/18 04:50 Arterial Blood pH 7.397 (7.350-7.450) Arterial Blood Partial Pressure CO2 41.5 mmHg (35.0-45.0) Arterial Blood Partial Pressure O2 79.8 mmHg (75.0-100.0) Arterial Blood HCO3 25.0 mmol/L (22.0-26.0) Arterial Blood Oxygen Saturation 95.1 % (92.0-98.0) Arterial Blood Base Excess 0.1 Johan Test Positive White Blood Count 16.7 K/UL (4.8-10.8) H 8.8 K/UL (4.8-10.8) Red Blood Count 3.11 M/UL (4.70-6.10) L 2.64 M/UL (4.70-6.10) L Hemoglobin 9.7 G/DL (14.2-18.0) L 8.3 G/DL (14.2-18.0) L Hematocrit 28.9 % (42.0-52.0) L 24.5 % (42.0-52.0) L Mean Corpuscular Volume 93 FL (80-99) 93 FL (80-99) Mean Corpuscular Hemoglobin 31.0 PG (27.0-31.0) 31.4 PG (27.0-31.0) H Mean Corpuscular Hemoglobin Concent 33.4 G/DL (32.0-36.0) 33.9 G/DL (32.0-36.0) Red Cell Distribution Width 12.3 % (11.6-14.8) 11.9 % (11.6-14.8) Platelet Count 73 K/UL (150-450) L 46 K/UL (150-450) L Mean Platelet Volume 6.9 FL (6.5-10.1) 7.3 FL (6.5-10.1) Neutrophils (%) (Auto) % (45.0-75.0) % (45.0-75.0) Lymphocytes (%) (Auto) % (20.0-45.0) % (20.0-45.0) Monocytes (%) (Auto) % (1.0-10.0) % (1.0-10.0) Eosinophils (%) (Auto) % (0.0-3.0) % (0.0-3.0) Basophils (%) (Auto) % (0.0-2.0) % (0.0-2.0) Differential Total Cells Counted 100 Neutrophils % (Manual) 68 % (45-75) Pending Lymphocytes % (Manual) 7 % (20-45) L Pending Monocytes % (Manual) 8 % (1-10) Eosinophils % (Manual) 3 % (0-3) Basophils % (Manual) 0 % (0-2) Band Neutrophils 14 % (0-8) H Platelet Estimate Decreased L Pending Platelet Morphology Normal Pending Anisocytosis 1+ Sodium Level 133 MMOL/L (136-145) L 136 MMOL/L (136-145) Potassium Level 3.7 MMOL/L (3.5-5.1) 3.8 MMOL/L (3.5-5.1) Chloride Level 103 MMOL/L (98-107) 105 MMOL/L (98-107) Carbon Dioxide Level 28 MMOL/L (21-32) 28 MMOL/L (21-32) Anion Gap 2 mmol/L (5-15) L 3 mmol/L (5-15) L Blood Urea Nitrogen 34 mg/dL (7-18) H 35 mg/dL (7-18) H Creatinine 1.3 MG/DL (0.55-1.30) 1.3 MG/DL (0.55-1.30) Estimat Glomerular Filtration Rate > 60 mL/min (>60) > 60 mL/min (>60) Glucose Level 174 MG/DL (74-106) H 146 MG/DL (74-106) H Calcium Level 8.3 MG/DL (8.5-10.1) L 8.3 MG/DL (8.5-10.1) L Total Bilirubin 6.7 MG/DL (0.2-1.0) H 6.2 MG/DL (0.2-1.0) H Direct Bilirubin 3.9 MG/DL (0.0-0.3) H Pending Aspartate Amino Transf (AST/SGOT) 64 U/L (15-37) H 72 U/L (15-37) H Alanine Aminotransferase (ALT/SGPT) 33 U/L (12-78) 35 U/L (12-78) Alkaline Phosphatase 106 U/L (46-116) 91 U/L (46-116) Total Protein 6.6 G/DL (6.4-8.2) Pending Albumin 1.7 G/DL (3.4-5.0) L 1.7 G/DL (3.4-5.0) L Globulin 4.9 g/dL Pending Albumin/Globulin Ratio 0.3 (1.0-2.7) L Prothrombin Time 19.4 SEC (9.30-11.50) H Prothromb Time International Ratio 1.9 (0.9-1.1) H Mario Rasmussen MD May 03, 2018 08:43
[2018-05-03 08:50] LABS: BILIRUBIN,DIRECT 2.8 MG/DL (0.0-0.3)
--- NOTE | 2018-05-03 09:43 | Diagnostic Imaging Report ---
APPROVED REPORT CPT Code: 34338 Present Symptoms Comments: BILATERAL LEGS PAIN. BILATERAL: Imaging reveals a patent deep venous system bilaterally. There is no evidence of thrombus within the femoral, popliteal or tibial segments. The greater saphenous veins are also within normal limits. Doppler indicates normal spontaneous flow within these segments.
--- NOTE | 2018-05-03 10:27 | Diagnostic Imaging Report ---
Indication: Dyspnea Comparison: 05/01/2018 A single view chest radiograph was obtained. Findings: Patchy, heterogeneous airspace opacities and interstitial opacities identified. Heart is stable. Tubes and lines are stable. IMPRESSION: Patchy lung disease likely on the basis of pulmonary edema. Infiltrates not excluded.
[2018-05-03] MEDS ORDERED: Succinylcholine 20mg/ml 10ml vial ONE (15:03)
[2018-05-03] MEDS ORDERED: Etomidate 40mg/20ml Inj IV ONE (15:03)
--- NOTE | 2018-05-03 15:08 | Cardiology Report ---
APPROVED REPORT EKG Measurement Heart [id number] Sinus tachycardia Cannot rule out Anterior infarct, age undetermined Abnormal ECG
[2018-05-03] MEDS: Midazolam/D5W 100ml 100 ML IVPB SCH (15:15)
--- NOTE | 2018-05-03 15:29 | Diagnostic Imaging Report ---
Indications: Ascites Procedure: Informed consent obtained. Ultrasound used to localize optimal puncture site. Sterile prepping and draping over the optimum site. Local anesthesia with 1% lidocaine. Under real-time ultrasound guidance, puncture of the peritoneal space performed using paracentesis needle. Digital image was saved and archived. Stylet removed. Catheter placed to vacuum bottle suction. Fluid was aspirated. Patient tolerated procedure well, without immediate complication. Findings: Followup sonography demonstrates complete resolution of peritoneal fluid Impression: Successful ultrasound-guided paracentesis, yielding 6.4 liters of fluid
--- NOTE | 2018-05-03 15:35 | General Progress Note ---
Assessment/Plan Assessment/Plan ASSESSMENT AND RECS: 1. Thrombocytopenia, potentially secondary to septic shock, severe sepsis, end- organ damage, closely monitor, platelet count downtrending peripheral smear has been reviewed. The patient continues to have lactic acidosis, improved at this time and, in addition, imaging reviewed. --> The patient noted to be with cirrhosis with portal hypertension, expected coagulopathy. --> hepatitis and hiv have been ordered 2. Coagulopathy with portal hypertension, cirrhosis of liver, large volume ascites, requires paracentesis and requires vitamin K and --> I agree with the use of vitamin K at this time, and also, the patient may need fresh frozen plasma. 3. Leukocytosis, likely secondary to underlying infection, potentially related to underlying sepsis versus other causes such as SBP; but again has been seen by GI team --> pending paracentesis 4. AGNIESZKA, on IV fluids 5. Acute encephalopathy. 6. Septic shock. Subjective Constitutional: Denies: no symptoms, chills, diaphoresis, fever, malaise, weakness, other HEENT: Denies: no symptoms, eye pain, blurred vision, tearing, double vision, ear pain, ear discharge, nose pain, nose congestion, throat pain, throat swelling, mouth pain, mouth swelling, other Cardiovascular: Denies: no symptoms, chest pain, edema, irregular heart rate, lightheadedness, palpitations, syncope, other Respiratory: Denies: no symptoms, cough, orthopnea, shortness of breath, SOB with excertion, SOB at rest, sputum, stridor, wheezing, other Gastrointestinal/Abdominal: Denies: no symptoms, abdomen distended, abdominal pain, black stools, tarry stools, blood in stool, constipated, diarrhea, difficulty swallowing, nausea, poor appetite, poor fluid intake, rectal bleeding , vomiting, other Genitourinary: Denies: no symptoms, burning, discharge, frequency, flank pain, hematuria, incontinence, pain, urgency, other Neurologic/Psychiatric: Denies: no symptoms, anxiety, depressed, emotional problems, headache, numbness, paresthesia, pre-existing deficit, seizure, tingling, tremors, weakness, other Endocrine: Denies: no symptoms, excessive sweating, flushing, intolerance to cold, intolerance to heat, increased hunger, increased thirst, increased urine, unexplained weight gain, unexplained weight loss, other Hematologic/Lymphatic: Denies: no symptoms, anemia, easy bleeding, easy bruising, other Allergies: Coded Allergies: No Known Allergies (Unverified , 04/29/18) Subjective s/p paracentesis Objective Last 24 Hour Vital Signs Date Time Temp Pulse Resp B/P (MAP) Pulse Ox O2 Delivery O2 Flow Rate FiO2 05/03/18 15:10 92 20 35 05/03/18 13:30 93 24 35 05/03/18 13:00 127/76 05/03/18 12:00 35 05/03/18 12:00 109 05/03/18 12:00 Mechanical Ventilator 05/03/18 12:00 97.5 111 29 127/76 (93) 94 97.5 05/03/18 11:12 105 23 35 05/03/18 11:00 104 27 140/71 (94) 95 05/03/18 10:15 96 05/03/18 10:00 102 26 112/66 (81) 95 05/03/18 09:00 98 26 111/66 (81) 96 05/03/18 09:00 99 27 35 05/03/18 08:43 100/54 05/03/18 08:00 102 05/03/18 08:00 Mechanical Ventilator 05/03/18 08:00 99.2 103 30 117/77 (90) 96 99.2 05/03/18 08:00 35 05/03/18 07:22 99 24 35 05/03/18 07:00 103 27 100/54 (69) 97 05/03/18 06:00 98 28 101/58 (72) 96 05/03/18 05:29 104 29 35 05/03/18 05:00 106 30 107/55 (72) 98 05/03/18 04:00 Mechanical Ventilator 05/03/18 04:00 98.8 105 30 104/53 (70) 96 98.8 05/03/18 04:00 35 05/03/18 03:04 108 05/03/18 03:00 109 30 109/58 (75) 94 05/03/18 02:44 97 28 35 05/03/18 02:00 100 25 105/57 (73) 94 05/03/18 01:00 109 30 111/59 (76) 93 05/03/18 00:48 102 23 35 05/03/18 00:00 Mechanical Ventilator 05/03/18 00:00 35 05/03/18 00:00 98.7 108 28 105/64 (78) 93 98.7 05/02/18 23:09 107 05/02/18 23:00 104 23 109/60 (76) 95 05/02/18 22:58 106 23 35 05/02/18 22:00 110 27 103/58 (73) 100 05/02/18 21:06 104 24 35 05/02/18 21:00 108 28 115/97 (103) 95 05/02/18 20:00 99.0 104 24 116/94 (101) 97 99.0 05/02/18 20:00 27 Mechanical Ventilator 35 05/02/18 20:00 35 05/02/18 20:00 Mechanical Ventilator 05/02/18 19:29 107 05/02/18 19:04 106 24 35 05/02/18 19:00 107 22 107/61 (76) 96 05/02/18 18:00 104 19 107/60 (76) 100 05/02/18 17:31 112/58 05/02/18 17:25 104 24 35 05/02/18 17:00 103 19 112/57 (75) 100 05/02/18 16:00 35 05/02/18 16:00 103 05/02/18 16:00 Mechanical Ventilator 05/02/18 16:00 99.0 104 20 119/60 (79) 97 99.0 Intake and Output 05/02/18 05/03/18 19:00 07:00 Intake Total 1225 ml 1000 ml Output Total 770 ml 620 ml Balance 455 ml 380 ml IV Total 1200 ml 950 ml Tube Feeding 25 ml Other 50 ml Output Urine Total 770 ml 620 ml # Bowel Movements 3 Laboratory Tests 05/03/18 04:50: White Blood Count 8.8, Red Blood Count 2.64L, Hemoglobin 8.3L, Hematocrit 24.5L , Mean Corpuscular Volume 93, Mean Corpuscular Hemoglobin 31.4H, Mean Corpuscular Hemoglobin Concent 33.9, Red Cell Distribution Width 11.9, Platelet Count 46L, Mean Platelet Volume 7.3, Neutrophils (%) (Auto) , Lymphocytes (%) ( Auto) , Monocytes (%) (Auto) , Eosinophils (%) (Auto) , Basophils (%) (Auto) , Differential Total Cells Counted 100, Neutrophils % (Manual) 73, Lymphocytes % ( Manual) 4L, Monocytes % (Manual) 11H, Eosinophils % (Manual) 0, Basophils % ( Manual) 0, Myelocytes % 1H, Band Neutrophils 11H, Platelet Estimate DecreasedL, Platelet Morphology Normal, Red Blood Cell Morphology Normal, Prothrombin Time 19.4H, Prothromb Time International Ratio 1.9H, Sodium Level 136, Potassium Level 3.8, Chloride Level 105, Carbon Dioxide Level 28, Anion Gap 3L, Blood Urea Nitrogen 35H, Creatinine 1.3, Estimat Glomerular Filtration Rate > 60, Glucose Level 146H, Calcium Level 8.3L, Total Bilirubin 6.2H, Direct Bilirubin 2.8H, Aspartate Amino Transf (AST/SGOT) 72H, Alanine Aminotransferase (ALT/SGPT ) 35, Alkaline Phosphatase 91, Total Protein 6.2L, Albumin 1.7L, Globulin 4.5 Height (Feet): 5 Height (Inches): 9.00 Weight (Pounds): 314 General Appearance: no apparent distress EENT: TMs normal Neck: supple Cardiovascular: regular rhythm Respiratory/Chest: normal breath sounds Abdomen: soft Extremities: non-tender Edema: 1+ Leg (L), 1+ Leg (R), 1+ Pedal (L), 1+ Pedal (R) Neurologic: oriented x 3 Eric Irizarry MD May 03, 2018 15:35
--- NOTE | 2018-05-03 16:35 | General Progress Note ---
Assessment/Plan Status: stable Assessment/Plan Septic Shock due to Providencia bacteremia, continue broad spectrum antibiotics and vasopressors. ID and CCM following. Decompensated cirrhosis, underwent ultrasound guided paracentesis today. AGNIESZKA due to ATN from sepsis and hypotension, continue to treat underlying septic shock Acute metabolic encephalopathy, continue to treat underlying medical issues, continue lactulose via NGT Acute hypoxic respiratory failure, vent management per pulm/CCM DVT Prophylaxis: scd's Subjective Date patient seen: May 03, 2018 Time patient seen: 16:25 ROS Limited/Unobtainable: Yes Allergies: Coded Allergies: No Known Allergies (Unverified , 04/29/18) Subjective Medical followup for multiple medical conditions including septic shock, acute hypoxic respiratory failure, decompensated cirrhosis. He remains intubated on pressors but is awake during my encounter, nods his head yes when I say his name. Otherwise unable to obtain ROS Objective Last 24 Hour Vital Signs Date Time Temp Pulse Resp B/P (MAP) Pulse Ox O2 Delivery O2 Flow Rate FiO2 05/03/18 15:10 92 20 35 05/03/18 13:30 93 24 35 05/03/18 13:00 127/76 05/03/18 12:00 35 05/03/18 12:00 109 05/03/18 12:00 Mechanical Ventilator 05/03/18 12:00 97.5 111 29 127/76 (93) 94 97.5 05/03/18 11:12 105 23 35 05/03/18 11:00 104 27 140/71 (94) 95 05/03/18 10:15 96 05/03/18 10:00 102 26 112/66 (81) 95 05/03/18 09:00 98 26 111/66 (81) 96 05/03/18 09:00 99 27 35 05/03/18 08:43 100/54 05/03/18 08:00 102 05/03/18 08:00 Mechanical Ventilator 05/03/18 08:00 99.2 103 30 117/77 (90) 96 99.2 05/03/18 08:00 35 05/03/18 07:22 99 24 35 05/03/18 07:00 103 27 100/54 (69) 97 05/03/18 06:00 98 28 101/58 (72) 96 05/03/18 05:29 104 29 35 05/03/18 05:00 106 30 107/55 (72) 98 05/03/18 04:00 Mechanical Ventilator 05/03/18 04:00 98.8 105 30 104/53 (70) 96 98.8 05/03/18 04:00 35 05/03/18 03:04 108 05/03/18 03:00 109 30 109/58 (75) 94 05/03/18 02:44 97 28 35 05/03/18 02:00 100 25 105/57 (73) 94 05/03/18 01:00 109 30 111/59 (76) 93 05/03/18 00:48 102 23 35 05/03/18 00:00 Mechanical Ventilator 05/03/18 00:00 35 05/03/18 00:00 98.7 108 28 105/64 (78) 93 98.7 05/02/18 23:09 107 05/02/18 23:00 104 23 109/60 (76) 95 05/02/18 22:58 106 23 35 05/02/18 22:00 110 27 103/58 (73) 100 05/02/18 21:06 104 24 35 05/02/18 21:00 108 28 115/97 (103) 95 05/02/18 20:00 99.0 104 24 116/94 (101) 97 99.0 05/02/18 20:00 27 Mechanical Ventilator 35 05/02/18 20:00 35 05/02/18 20:00 Mechanical Ventilator 05/02/18 19:29 107 05/02/18 19:04 106 24 35 05/02/18 19:00 107 22 107/61 (76) 96 05/02/18 18:00 104 19 107/60 (76) 100 05/02/18 17:31 112/58 05/02/18 17:25 104 24 35 05/02/18 17:00 103 19 112/57 (75) 100 Intake and Output 05/02/18 05/03/18 19:00 07:00 Intake Total 1225 ml 1000 ml Output Total 770 ml 620 ml Balance 455 ml 380 ml IV Total 1200 ml 950 ml Tube Feeding 25 ml Other 50 ml Output Urine Total 770 ml 620 ml # Bowel Movements 3 Laboratory Tests 05/03/18 04:50: White Blood Count 8.8, Red Blood Count 2.64L, Hemoglobin 8.3L, Hematocrit 24.5L , Mean Corpuscular Volume 93, Mean Corpuscular Hemoglobin 31.4H, Mean Corpuscular Hemoglobin Concent 33.9, Red Cell Distribution Width 11.9, Platelet Count 46L, Mean Platelet Volume 7.3, Neutrophils (%) (Auto) , Lymphocytes (%) ( Auto) , Monocytes (%) (Auto) , Eosinophils (%) (Auto) , Basophils (%) (Auto) , Differential Total Cells Counted 100, Neutrophils % (Manual) 73, Lymphocytes % ( Manual) 4L, Monocytes % (Manual) 11H, Eosinophils % (Manual) 0, Basophils % ( Manual) 0, Myelocytes % 1H, Band Neutrophils 11H, Platelet Estimate DecreasedL, Platelet Morphology Normal, Red Blood Cell Morphology Normal, Prothrombin Time 19.4H, Prothromb Time International Ratio 1.9H, Sodium Level 136, Potassium Level 3.8, Chloride Level 105, Carbon Dioxide Level 28, Anion Gap 3L, Blood Urea Nitrogen 35H, Creatinine 1.3, Estimat Glomerular Filtration Rate > 60, Glucose Level 146H, Calcium Level 8.3L, Total Bilirubin 6.2H, Direct Bilirubin 2.8H, Aspartate Amino Transf (AST/SGOT) 72H, Alanine Aminotransferase (ALT/SGPT ) 35, Alkaline Phosphatase 91, Total Protein 6.2L, Albumin 1.7L, Globulin 4.5 05/03/18 15:35: Body Fluid Source [Pending], Body Fluid Volume [Pending], Body Fluid Appearance [Pending], Body Fluid RBC [Pending], Body Fluid Total Nucleated Cells [Pending] , Body Fluid Polynuclear WBCs (%) [Pending], Body Fluid Mononuclear WBCs (%) [ Pending], Body Fluid Mesothelial Cells (%) [Pending], Body Fluid Total Protein [ Pending], Body Fluid Lactate Dehydrogenase [Pending] Height (Feet): 5 Height (Inches): 9.00 Weight (Pounds): 314 General Appearance: alert EENT: other - Intubated Neck: normal alignment Cardiovascular: normal rate, regular rhythm Respiratory/Chest: lungs clear, no accessory muscle use Abdomen: soft, distended Krzysztof Gonsalves MD May 03, 2018 16:35
[2018-05-03 18:18] LABS: FERRITIN 192 NG/ML (8-388)
[2018-05-03 18:21] LABS: % IRON SATURATION 38 % (15-50); IRON 56 ug/dL (50-175); TOTAL IRON BINDING CAPACITY 147 ug/dL (250-450)
--- NOTE | 2018-05-03 19:31 | General Progress Note ---
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 Objective Last 24 Hour Vital Signs Date Time Temp Pulse Resp B/P (MAP) Pulse Ox O2 Delivery O2 Flow Rate FiO2 05/03/18 19:00 94 20 93/55 (68) 100 05/03/18 18:13 127/76 05/03/18 18:00 89 22 97/56 (70) 100 05/03/18 17:12 96 22 35 05/03/18 17:00 90 21 85/56 (66) 100 05/03/18 16:00 35 05/03/18 16:00 98 05/03/18 16:00 98.0 92 25 99/58 (72) 100 98.0 05/03/18 16:00 Mechanical Ventilator 05/03/18 15:10 92 20 35 05/03/18 15:00 92 25 100/60 (73) 100 05/03/18 14:00 92 25 104/58 (73) 100 05/03/18 13:30 93 24 35 05/03/18 13:00 127/76 05/03/18 13:00 92 27 122/66 (84) 95 05/03/18 12:00 35 05/03/18 12:00 109 05/03/18 12:00 Mechanical Ventilator 05/03/18 12:00 97.5 111 29 127/76 (93) 94 97.5 05/03/18 11:12 105 23 35 05/03/18 11:00 104 27 140/71 (94) 95 05/03/18 10:15 96 05/03/18 10:00 102 26 112/66 (81) 95 05/03/18 09:00 98 26 111/66 (81) 96 05/03/18 09:00 99 27 35 05/03/18 08:43 100/54 05/03/18 08:00 102 05/03/18 08:00 Mechanical Ventilator 05/03/18 08:00 99.2 103 30 117/77 (90) 96 99.2 05/03/18 08:00 35 05/03/18 07:22 99 24 35 05/03/18 07:00 103 27 100/54 (69) 97 05/03/18 06:00 98 28 101/58 (72) 96 05/03/18 05:29 104 29 35 05/03/18 05:00 106 30 107/55 (72) 98 05/03/18 04:00 Mechanical Ventilator 05/03/18 04:00 98.8 105 30 104/53 (70) 96 98.8 05/03/18 04:00 35 05/03/18 03:04 108 05/03/18 03:00 109 30 109/58 (75) 94 05/03/18 02:44 97 28 35 05/03/18 02:00 100 25 105/57 (73) 94 05/03/18 01:00 109 30 111/59 (76) 93 05/03/18 00:48 102 23 35 05/03/18 00:00 Mechanical Ventilator 05/03/18 00:00 35 05/03/18 00:00 98.7 108 28 105/64 (78) 93 98.7 05/02/18 23:09 107 05/02/18 23:00 104 23 109/60 (76) 95 05/02/18 22:58 106 23 35 05/02/18 22:00 110 27 103/58 (73) 100 05/02/18 21:06 104 24 35 05/02/18 21:00 108 28 115/97 (103) 95 05/02/18 20:00 99.0 104 24 116/94 (101) 97 99.0 05/02/18 20:00 27 Mechanical Ventilator 35 05/02/18 20:00 35 05/02/18 20:00 Mechanical Ventilator 05/02/18 19:29 107 Intake and Output 05/02/18 05/03/18 19:00 07:00 Intake Total 1225 ml 1000 ml Output Total 770 ml 620 ml Balance 455 ml 380 ml IV Total 1200 ml 950 ml Tube Feeding 25 ml Other 50 ml Output Urine Total 770 ml 620 ml # Bowel Movements 3 Laboratory Tests 05/03/18 04:50: White Blood Count 8.8, Red Blood Count 2.64L, Hemoglobin 8.3L, Hematocrit 24.5L , Mean Corpuscular Volume 93, Mean Corpuscular Hemoglobin 31.4H, Mean Corpuscular Hemoglobin Concent 33.9, Red Cell Distribution Width 11.9, Platelet Count 46L, Mean Platelet Volume 7.3, Neutrophils (%) (Auto) , Lymphocytes (%) ( Auto) , Monocytes (%) (Auto) , Eosinophils (%) (Auto) , Basophils (%) (Auto) , Differential Total Cells Counted 100, Neutrophils % (Manual) 73, Lymphocytes % ( Manual) 4L, Monocytes % (Manual) 11H, Eosinophils % (Manual) 0, Basophils % ( Manual) 0, Myelocytes % 1H, Band Neutrophils 11H, Platelet Estimate DecreasedL, Platelet Morphology Normal, Red Blood Cell Morphology Normal, Reticulocyte Count 1.8, Prothrombin Time 19.4H, Prothromb Time International Ratio 1.9H, Sodium Level 136, Potassium Level 3.8, Chloride Level 105, Carbon Dioxide Level 28, Anion Gap 3L, Blood Urea Nitrogen 35H, Creatinine 1.3, Estimat Glomerular Filtration Rate > 60, Glucose Level 146H, Calcium Level 8.3L, Total Bilirubin 6.2H, Direct Bilirubin 2.8H, Aspartate Amino Transf (AST/SGOT) 72H, Alanine Aminotransferase (ALT/SGPT) 35, Alkaline Phosphatase 91, Total Protein 6.2L, Albumin 1.7L, Globulin 4.5 05/03/18 15:35: Body Fluid Source Paracentesis, Body Fluid Volume 24, Body Fluid Appearance Yellow/hazy, Body Fluid RBC 572, Body Fluid Total Nucleated Cells 6, Body Fluid Polynuclear WBCs (%) 20, Body Fluid Mononuclear WBCs (%) 71, Body Fluid Mesothelial Cells (%) 9, Body Fluid Total Protein [Pending], Body Fluid Lactate Dehydrogenase [Pending] 05/03/18 17:00: Sickle Cell Screen [Pending], PTT Mixing Study [Pending], APTT Patient/Control Mix [Pending], Mix PTT Incubation Time [Pending], Mix PTT Normal/Saline 1:1 Immediate [Pending], Thrombin Time Normal Plasma [Pending], Fibrinogen 174L, Iron Level 56, Total Iron Binding Capacity 147L, Percent Iron Saturation 38, Unsaturated Iron Binding 91L, Ferritin 192, Folate 8.6, Thyroid Stimulating Hormone (TSH) 2.459, Hepatitis A IgM Antibody [Pending], Hepatitis B Surface Antigen [Pending], Hepatitis B Core IgM Antibody [Pending], Hepatitis C Antibody [Pending], HIV (1&2) Antibody Rapid Negative Height (Feet): 5 Height (Inches): 9.00 Weight (Pounds): 314 Objective WDWN WM NCAT supple CTA RRR Soft / Obese trace edema sedated Pierre Suggs MD May 03, 2018 19:30
[2018-05-03] MEDS: Dyna-Hex 2% Top Sol 2oz TOPIC SCH (21:35)
[2018-05-04] VITALS (25 sets, daily range): BP systolic 93–138; BP diastolic 51–80
[2018-05-04 07:44] LABS: HEMOGLOBIN 8.8 G/DL (14.2-18.0); MEAN CORPUSCULAR VOLUME 93 FL (80-99); PLATELET COUNT 57 K/UL (150-450); RED BLOOD COUNT 2.79 M/UL (4.70-6.10); RED CELL DISTRIBUTION WIDTH 12.4 % (11.6-14.8); WHITE BLOOD COUNT 10.8 K/UL (4.8-10.8)
[2018-05-04 07:55] LABS: ANION GAP 6 mmol/L (5-15); BLOOD UREA NITROGEN 36 mg/dL (7-18); CALCIUM 8.2 MG/DL (8.5-10.1); CARBON DIOXIDE 27 MMOL/L (21-32); CHLORIDE 106 MMOL/L (98-107); CREATININE 1.1 MG/DL (0.55-1.30); POTASSIUM 3.5 MMOL/L (3.5-5.1); SODIUM 139 MMOL/L (136-145)
[2018-05-04] MEDS: Lactulose 20gm/30ml UDC NG SCH ×3 (08:48→18:31)
[2018-05-04] MEDS: Pantoprazole Inj IVP SCH (08:49)
[2018-05-04] MEDS: LORazepam Inj 2mg/ml 1ml IV PRN (13:00)
--- NOTE | 2018-05-04 15:20 | Pulmonolgy Critical Care Note ---
Critical Care - Asmt/Plan Assessment/Plan: Pulmonary Critical Care Progress Note Problems: (1) Gram negative sepsis (2) Acute kidney failure (3) Hyperbilirubinemia (4) Shock, septic (5) Cellulitis (6) Cirrhosis of liver (7) Lactic acid acidosis (8) Acute encephalopathy (9) Altered mental state (10) Acute respiratory failure without hypercapnia (11) Coagulopathy (12) Thrombocytopenia Respiratory: monitor respiratory rate, weaning trial - after diuresis and para Cardiac: continue to monitor HR/BP Renal: check electrolytes, other - D/C IVF, lasix 40 IV x 1 Infectious Disease: continue antibiotics - Carlos Manuel and Vanco per ID Gastrointestinal: hold feedings Endocrine: monitor blood sugar Hematologic: monitor H/H, other - monitor plt, transfuse PRN < 20, PRN FFP, F/ U heme recs Neurologic: keep patient comfortable - sedation held Prophylaxis: Protonix, SCDs Disposition: keep in ICU Time Spent (Minutes): 60 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, GI, 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 Discussed with: nurses, consultants Critical Care - Objective Last 24 Hour Vital Signs Date Time Temp Pulse Resp B/P (MAP) Pulse Ox O2 Delivery O2 Flow Rate FiO2 05/03/18 07:22 99 24 35 05/03/18 07:00 103 27 100/54 (69) 97 05/03/18 06:00 98 28 101/58 (72) 96 05/03/18 05:29 104 29 35 05/03/18 05:00 106 30 107/55 (72) 98 05/03/18 04:00 Mechanical Ventilator 05/03/18 04:00 98.8 105 30 104/53 (70) 96 98.8 05/03/18 04:00 35 05/03/18 03:04 108 05/03/18 03:00 109 30 109/58 (75) 94 05/03/18 02:44 97 28 35 05/03/18 02:00 100 25 105/57 (73) 94 05/03/18 01:00 109 30 111/59 (76) 93 05/03/18 00:48 102 23 35 05/03/18 00:00 Mechanical Ventilator 05/03/18 00:00 35 05/03/18 00:00 98.7 108 28 105/64 (78) 93 98.7 05/02/18 23:09 107 05/02/18 23:00 104 23 109/60 (76) 95 05/02/18 22:58 106 23 35 05/02/18 22:00 110 27 103/58 (73) 100 05/02/18 21:06 104 24 35 05/02/18 21:00 108 28 115/97 (103) 95 05/02/18 20:00 99.0 104 24 116/94 (101) 97 99.0 05/02/18 20:00 27 Mechanical Ventilator 35 05/02/18 20:00 35 05/02/18 20:00 Mechanical Ventilator 05/02/18 19:29 107 05/02/18 19:04 106 24 35 05/02/18 19:00 107 22 107/61 (76) 96 05/02/18 18:00 104 19 107/60 (76) 100 05/02/18 17:31 112/58 05/02/18 17:25 104 24 35 05/02/18 17:00 103 19 112/57 (75) 100 05/02/18 16:00 35 05/02/18 16:00 103 05/02/18 16:00 Mechanical Ventilator 05/02/18 16:00 99.0 104 20 119/60 (79) 97 99.0 05/02/18 15:15 108 24 35 05/02/18 15:00 107 19 109/61 (77) 100 05/02/18 14:00 105 19 110/60 (77) 100 05/02/18 13:57 116/68 05/02/18 13:05 111 22 35 05/02/18 13:00 112 19 111/60 (77) 100 05/02/18 12:00 98.1 109 22 111/65 (80) 98 98.1 05/02/18 12:00 35 05/02/18 12:00 109 05/02/18 12:00 Mechanical Ventilator 05/02/18 11:00 138 37 151/82 (105) 97 05/02/18 11:00 124 23 35 05/02/18 10:00 133 32 137/71 (93) 97 05/02/18 09:08 132/59 05/02/18 09:00 123 31 129/59 (82) 97 Status: awake, other - obese Condition: critical HEENT: atraumatic, normocephalic, other - ETT, NGT Lungs: rhonchi Heart: HR/BP stable Abdomen: soft, non-tender, distended Extremities: edema - 2+ edema, bLE dressed Micro: Microbiology Date/Time Source Procedure Growth Status 04/30/18 18:00 Sputum Induced Gram Stain - Final Resulted 04/30/18 18:00 Sputum Culture - Preliminary Staphylococcus Aureus YEAST Resulted Accucheck: 54 Critical Care - Subjective ROS Limited/Unobtainable: Yes ICU Day: 5 Intubation Day: 5 Interval Events: Failed SBT 2/2 tachycardia and tachypnea Para not done Off pressors Condition: critical IV Access: central EKG Rhythm: Sinus Tachycardia FI02: 35 Vent Support Breath Rate: 16 Vent Support Mode: AC Vent Tidal Volume: 550 Sputum Amount: Moderate PEEP: 5.0 PIP: 38 Fluids: D5NS@50 Tube Feeding Amount: 25 I&O: Intake and Output 05/02/18 05/03/18 19:00 07:00 Intake Total 1225 ml 1000 ml Output Total 770 ml 620 ml Balance 455 ml 380 ml IV Total 1200 ml 950 ml Tube Feeding 25 ml Other 50 ml Output Urine Total 770 ml 620 ml # Bowel Movements 3 Subjective: No c/o ET-Tube: 8.0 ET Position: 24 Labs: Laboratory Tests Test 05/02/18 09:19 05/02/18 10:30 05/03/18 04:50 Arterial Blood pH 7.397 (7.350-7.450) Arterial Blood Partial Pressure CO2 41.5 mmHg (35.0-45.0) Arterial Blood Partial Pressure O2 79.8 mmHg (75.0-100.0) Arterial Blood HCO3 25.0 mmol/L (22.0-26.0) Arterial Blood Oxygen Saturation 95.1 % (92.0-98.0) Arterial Blood Base Excess 0.1 Johan Test Positive White Blood Count 16.7 K/UL (4.8-10.8) H 8.8 K/UL (4.8-10.8) Red Blood Count 3.11 M/UL (4.70-6.10) L 2.64 M/UL (4.70-6.10) L Hemoglobin 9.7 G/DL (14.2-18.0) L 8.3 G/DL (14.2-18.0) L Hematocrit 28.9 % (42.0-52.0) L 24.5 % (42.0-52.0) L Mean Corpuscular Volume 93 FL (80-99) 93 FL (80-99) Mean Corpuscular Hemoglobin 31.0 PG (27.0-31.0) 31.4 PG (27.0-31.0) H Mean Corpuscular Hemoglobin Concent 33.4 G/DL (32.0-36.0) 33.9 G/DL (32.0-36.0) Red Cell Distribution Width 12.3 % (11.6-14.8) 11.9 % (11.6-14.8) Platelet Count 73 K/UL (150-450) L 46 K/UL (150-450) L Mean Platelet Volume 6.9 FL (6.5-10.1) 7.3 FL (6.5-10.1) Neutrophils (%) (Auto) % (45.0-75.0) % (45.0-75.0) Lymphocytes (%) (Auto) % (20.0-45.0) % (20.0-45.0) Monocytes (%) (Auto) % (1.0-10.0) % (1.0-10.0) Eosinophils (%) (Auto) % (0.0-3.0) % (0.0-3.0) Basophils (%) (Auto) % (0.0-2.0) % (0.0-2.0) Differential Total Cells Counted 100 Neutrophils % (Manual) 68 % (45-75) Pending Lymphocytes % (Manual) 7 % (20-45) L Pending Monocytes % (Manual) 8 % (1-10) Eosinophils % (Manual) 3 % (0-3) Basophils % (Manual) 0 % (0-2) Band Neutrophils 14 % (0-8) H Platelet Estimate Decreased L Pending Platelet Morphology Normal Pending Anisocytosis 1+ Sodium Level 133 MMOL/L (136-145) L 136 MMOL/L (136-145) Potassium Level 3.7 MMOL/L (3.5-5.1) 3.8 MMOL/L (3.5-5.1) Chloride Level 103 MMOL/L (98-107) 105 MMOL/L (98-107) Carbon Dioxide Level 28 MMOL/L (21-32) 28 MMOL/L (21-32) Anion Gap 2 mmol/L (5-15) L 3 mmol/L (5-15) L Blood Urea Nitrogen 34 mg/dL (7-18) H 35 mg/dL (7-18) H Creatinine 1.3 MG/DL (0.55-1.30) 1.3 MG/DL (0.55-1.30) Estimat Glomerular Filtration Rate > 60 mL/min (>60) > 60 mL/min (>60) Glucose Level 174 MG/DL (74-106) H 146 MG/DL (74-106) H Calcium Level 8.3 MG/DL (8.5-10.1) L 8.3 MG/DL (8.5-10.1) L Total Bilirubin 6.7 MG/DL (0.2-1.0) H 6.2 MG/DL (0.2-1.0) H Direct Bilirubin 3.9 MG/DL (0.0-0.3) H Pending Aspartate Amino Transf (AST/SGOT) 64 U/L (15-37) H 72 U/L (15-37) H Alanine Aminotransferase (ALT/SGPT) 33 U/L (12-78) 35 U/L (12-78) Alkaline Phosphatase 106 U/L (46-116) 91 U/L (46-116) Total Protein 6.6 G/DL (6.4-8.2) Pending Albumin 1.7 G/DL (3.4-5.0) L 1.7 G/DL (3.4-5.0) L Globulin 4.9 g/dL Pending Albumin/Globulin Ratio 0.3 (1.0-2.7) L Prothrombin Time 19.4 SEC (9.30-11.50) H Prothromb Time International Ratio 1.9 (0.9-1.1) H Critical Care - Objective Last 24 Hour Vital Signs Date Time Temp Pulse Resp B/P (MAP) Pulse Ox O2 Delivery O2 Flow Rate FiO2 05/04/18 15:00 102 20 110/66 (81) 98 05/04/18 14:00 104 23 109/63 (78) 98 05/04/18 13:09 99 18 35 05/04/18 13:00 95 21 103/58 (73) 100 9/12/18 12:16 Mechanical Ventilator 05/04/18 12:16 35 05/04/18 12:00 98.6 100 22 114/60 (78) 100 98.6 05/04/18 12:00 99 05/04/18 11:30 99 18 35 05/04/18 11:00 125 26 130/55 (80) 98 05/04/18 10:00 128 26 138/58 (84) 98 05/04/18 09:55 96 05/04/18 09:15 108 25 35 05/04/18 09:00 98.7 110 32 124/64 (84) 98 98.7 05/04/18 08:00 103 05/04/18 08:00 35 05/04/18 08:00 Mechanical Ventilator 05/04/18 08:00 104 18 138/80 (99) 100 05/04/18 07:03 109 25 35 05/04/18 07:00 110 18 137/72 (93) 100 05/04/18 06:00 108 17 114/55 (74) 100 05/04/18 05:25 103 20 35 05/04/18 05:00 101 17 102/53 (69) 100 05/04/18 04:00 35 05/04/18 04:00 97.9 106 17 108/54 (72) 100 97.9 05/04/18 04:00 95 05/04/18 04:00 Mechanical Ventilator 05/04/18 03:00 97 22 111/57 (75) 100 05/04/18 02:45 88 17 35 05/04/18 02:00 105 22 112/56 (74) 95 05/04/18 01:12 96 18 35 05/04/18 01:00 103 22 93/55 (68) 95 05/04/18 00:00 Mechanical Ventilator 05/04/18 00:00 98.0 105 17 95/51 (66) 95 98.0 05/03/18 23:15 106 25 35 05/03/18 23:00 92 20 95/49 (64) 99 05/03/18 22:00 92 20 91/51 (64) 99 05/03/18 21:05 91 21 35 05/03/18 21:00 92 20 101/54 (70) 99 9/11/18 20:00 Mechanical Ventilator 05/03/18 20:00 97.9 94 20 96/52 (67) 100 97.9 05/03/18 20:00 95 05/03/18 20:00 35 05/03/18 19:00 94 20 93/55 (68) 100 05/03/18 18:55 99 24 35 05/03/18 18:13 127/76 05/03/18 18:00 89 22 97/56 (70) 100 05/03/18 17:12 96 22 35 05/03/18 17:00 90 21 85/56 (66) 100 05/03/18 16:00 35 05/03/18 16:00 98 05/03/18 16:00 98.0 92 25 99/58 (72) 100 98.0 05/03/18 16:00 Mechanical Ventilator Micro: Microbiology Date/Time Source Procedure Growth Status 05/03/18 15:35 Ascities Fluid Gram Stain - Final Resulted 05/03/18 15:35 Ascities Fluid Body Fluid Culture - Preliminary NO GROWTH Resulted 05/04/18 05:00 Stool Clostridium difficile Toxin Assay - Final Complete Accucheck: 54 Critical Care - Subjective ROS Limited/Unobtainable: Yes Condition: stable FI02: 35 Vent Support Breath Rate: 16 Vent Support Mode: CPAP Vent Tidal Volume: 550 Sputum Amount: Small PEEP: 5.0 PIP: 34 Tube Feeding Amount: 15 I&O: Intake and Output 05/03/18 05/04/18 19:00 07:00 Intake Total 620 ml 460 ml Output Total 8075 ml 1945 ml Balance -7455 ml -1485 ml Free Water 150 ml 60 ml IV Total 450 ml 350 ml Tube Feeding 20 ml 50 ml Output Urine Total 1675 ml 1845 ml Stool Total 100 ml Other 6400 ml # Bowel Movements 1 ET-Tube: 8.0 ET Position: 24 Juan Lamb MD May 04, 2018 15:20
--- NOTE | 2018-05-04 16:26 | Infectious Diseases Prog Note ---
Assessment/Plan Assessment/Plan ASSESSMENT AND PLAN: 1. sepsis, shock, providencia bacteremia, likely GI source, ? SBP, mrsa/proteus right leg wound infection, right leg cellulitis, mrsa pna, leukocytosis, fevers - vancomycin and zosyn - monitor labs and chest x-ray - s/p paracentesis - 6 wbc, doubt sbp - vent support, icu care - off pressors 2. Liver cirrhosis. 3. Portal hypertension. 4. Ascites. 5. Anemia. 6. Thrombocytopenia. 7. Respiratory failure. 8. Low blood pressure. 9. Sepsis, shock. 10. Varices. 11. ETOH hepatitis. 12. Coagulopathy. 13. Altered mental status 14. hepatic encephalopathy 15. Past medical history noted. 16. He has no known allergies. 17. Social history is presumptively I think positive for ETOH. Cannot assess smoking or IV drug abuse. 18. Family history is noncontributory. 19. MAR was noted. 20. Case discussed with RN. 21. ICU care. 22. Case discussed with Dr. Rasmussen. 23. Continue treatment per primary consultants. 24. Poor prognosis. 25. Orders were entered and noted. 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 Subjective Constitutional: Reports: fatigue, other - on vent ; Denies: fever HEENT: Reports: congestion Respiratory: Reports: shortness of breath Cardiovascular: Denies: chest pain Gastrointestinal/Abdominal: Denies: nausea, vomiting, diarrhea Genitourinary: Reports: other - + grimm Neurologic: Reports: weakness Psychiatric: Reports: no symptoms Skin: Denies: rash Hematologic: Denies: bleeding Musculoskeletal: Reports: pain Allergies: Coded Allergies: No Known Allergies (Unverified , 04/29/18) Objective Vital Signs Last 24 Hour Vital Signs Date Time Temp Pulse Resp B/P (MAP) Pulse Ox O2 Delivery O2 Flow Rate FiO2 05/04/18 15:00 102 20 110/66 (81) 98 05/04/18 14:00 104 23 109/63 (78) 98 05/04/18 13:09 99 18 35 05/04/18 13:00 95 21 103/58 (73) 100 05/04/18 12:16 Mechanical Ventilator 05/04/18 12:16 35 05/04/18 12:00 98.6 100 22 114/60 (78) 100 98.6 05/04/18 12:00 99 05/04/18 11:30 99 18 35 05/04/18 11:00 125 26 130/55 (80) 98 05/04/18 10:00 128 26 138/58 (84) 98 05/04/18 09:55 96 05/04/18 09:15 108 25 35 05/04/18 09:00 98.7 110 32 124/64 (84) 98 98.7 05/04/18 08:00 103 05/04/18 08:00 35 05/04/18 08:00 Mechanical Ventilator 05/04/18 08:00 104 18 138/80 (99) 100 05/04/18 07:03 109 25 35 05/04/18 07:00 110 18 137/72 (93) 100 05/04/18 06:00 108 17 114/55 (74) 100 05/04/18 05:25 103 20 35 05/04/18 05:00 101 17 102/53 (69) 100 05/04/18 04:00 35 05/04/18 04:00 97.9 106 17 108/54 (72) 100 97.9 05/04/18 04:00 95 05/04/18 04:00 Mechanical Ventilator 05/04/18 03:00 97 22 111/57 (75) 100 05/04/18 02:45 88 17 35 05/04/18 02:00 105 22 112/56 (74) 95 05/04/18 01:12 96 18 35 05/04/18 01:00 103 22 93/55 (68) 95 05/04/18 00:00 Mechanical Ventilator 05/04/18 00:00 98.0 105 17 95/51 (66) 95 98.0 05/03/18 23:15 106 25 35 05/03/18 23:00 92 20 95/49 (64) 99 05/03/18 22:00 92 20 91/51 (64) 99 05/03/18 21:05 91 21 35 05/03/18 21:00 92 20 101/54 (70) 99 05/03/18 20:00 Mechanical Ventilator 05/03/18 20:00 97.9 94 20 96/52 (67) 100 97.9 05/03/18 20:00 95 05/03/18 20:00 35 05/03/18 19:00 94 20 93/55 (68) 100 05/03/18 18:55 99 24 35 05/03/18 18:13 127/76 05/03/18 18:00 89 22 97/56 (70) 100 05/03/18 17:12 96 22 35 05/03/18 17:00 90 21 85/56 (66) 100 Height (Feet): 5 Height (Inches): 9.00 Weight (Pounds): 314 General Appearance: other - + vent, no pressors HEENT: normocephalic, atraumatic, no JVD, other - oral - intubated, + icterus Respiratory/Chest: accessory muscle use, crackles/rales Cardiovascular: normal rate, regular rhythm, no gallop/murmur, no JVD Abdomen: soft, non tender, no organomegaly, non distended Genitourinary: other - + grimm Extremities: no cyanosis Skin: no rash 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 Right internal jugular, grossly unchanged. Nasogastric tube in gastric cavity. Endotracheal tube 5 cm above the pamela. Increasing opacity in bilateral mid to lower lung zones. No pleural effusions. The visualized osseous structures are within normal limits. IMPRESSION: Stable tubes and lines as outlined above. Increasing opacity in bilateral mid to lower lung zones. CT imaging noted - reports noted 05/03/18 - Chest x-ray - Findings: Patchy, heterogeneous airspace opacities and interstitial opacities identified. Heart is stable. Tubes and lines are stable. IMPRESSION: Patchy lung disease likely on the basis of pulmonary edema. Infiltrates not excluded. Microbiology Date/Time Source Procedure Growth Status 05/03/18 15:35 Ascities Fluid Gram Stain - Final Resulted 05/03/18 15:35 Ascities Fluid Body Fluid Culture - Preliminary NO GROWTH Resulted 05/04/18 05:00 Stool Clostridium difficile Toxin Assay - Final Complete Laboratory Tests Test 05/03/18 17:00 05/03/18 19:00 05/04/18 07:15 Sickle Cell Screen Pending PTT Mixing Study Pending APTT Patient/Control Mix Pending Mix PTT Incubation Time Pending Mix PTT Normal/Saline 1:1 Immediate Pending Thrombin Time Normal Plasma Pending Fibrinogen 174 mg/dL (200-400) L Iron Level 56 ug/dL (50-175) Total Iron Binding Capacity 147 ug/dL (250-450) L Percent Iron Saturation 38 % (15-50) Unsaturated Iron Binding 91 ug/dL (112-346) L Ferritin 192 NG/ML (8-388) Folate 8.6 NG/ML (8.6-58.9) Thyroid Stimulating Hormone (TSH) 2.459 uiU/mL (0.358-3.740) Hepatitis A IgM Antibody Negative (Negative) Hepatitis B Surface Antigen Negative (Negative) Hepatitis B Core IgM Antibody Negative (Negative) Hepatitis C Antibody <0.1 s/co ratio HIV (1&2) Antibody Rapid Negative (NEGATIVE) Stool Occult Blood Negative (NEGATIVE) White Blood Count 10.8 K/UL (4.8-10.8) Red Blood Count 2.79 M/UL (4.70-6.10) L Hemoglobin 8.8 G/DL (14.2-18.0) L Hematocrit 26.0 % (42.0-52.0) L Mean Corpuscular Volume 93 FL (80-99) Mean Corpuscular Hemoglobin 31.6 PG (27.0-31.0) H Mean Corpuscular Hemoglobin Concent 33.9 G/DL (32.0-36.0) Red Cell Distribution Width 12.4 % (11.6-14.8) Platelet Count 57 K/UL (150-450) L Mean Platelet Volume 6.7 FL (6.5-10.1) Neutrophils (%) (Auto) % (45.0-75.0) Lymphocytes (%) (Auto) % (20.0-45.0) Monocytes (%) (Auto) % (1.0-10.0) Eosinophils (%) (Auto) % (0.0-3.0) Basophils (%) (Auto) % (0.0-2.0) Differential Total Cells Counted 100 Neutrophils % (Manual) 78 % (45-75) H Lymphocytes % (Manual) 10 % (20-45) L Monocytes % (Manual) 11 % (1-10) H Eosinophils % (Manual) 0 % (0-3) Basophils % (Manual) 0 % (0-2) Band Neutrophils 1 % (0-8) Nucleated Red Blood Cells 1 /100 WBC Platelet Estimate Decreased L Platelet Morphology Normal Hypochromasia 2+ Anisocytosis 1+ Spherocytes 1+ Sodium Level 139 MMOL/L (136-145) Potassium Level 3.5 MMOL/L (3.5-5.1) Chloride Level 106 MMOL/L (98-107) Carbon Dioxide Level 27 MMOL/L (21-32) Anion Gap 6 mmol/L (5-15) Blood Urea Nitrogen 36 mg/dL (7-18) H Creatinine 1.1 MG/DL (0.55-1.30) Estimat Glomerular Filtration Rate > 60 mL/min (>60) Glucose Level 124 MG/DL (74-106) H Calcium Level 8.2 MG/DL (8.5-10.1) L Vancomycin Level Trough 25.1 ug/mL (5.0-12.0) H Current Medications Medications (Trade) Dose Ordered Sig/Ry Route PRN Reason Start Time Stop Time Status Last Admin Dose Admin Chlorhexidine Gluconate (Fatemeh-Hex 2%) 1 applic DAILY@1999 TOPIC 05/01/18 20:00 05/31/18 19:59 05/03/18 21:35 Lactulose (Cephulac) 20 gm THREE TIMES A DAY NG 04/30/18 13:00 05/30/18 12:59 05/04/18 13:00 Lorazepam (Ativan 2mg/ml 1ml) 2 mg Q4H PRN IV For Anxiety 04/30/18 13:30 05/07/18 13:29 05/04/18 13:00 Meropenem 1 gm/ Sodium Chloride 100 ml @ 200 mls/hr Q8H IVPB 04/30/18 17:00 05/05/18 16:59 05/04/18 08:49 Midazolam HCl (Versed 2mg/2ml vial) 2 mg Q2H PRN IVP Agitation 04/30/18 19:45 05/30/18 19:44 Pantoprazole (Protonix) 40 mg DAILY IVP 04/30/18 09:00 05/30/18 08:59 05/04/18 08:49 Pentoxifylline (TRENtal) 400 mg THREE TIMES A DAY ORAL 9/9/18 09:00 05/31/18 08:59 05/03/18 18:13 Rifaximin (Xifaxan) 550 mg EVERY 12 HOURS NG 05/01/18 09:00 05/08/18 08:59 05/04/18 08:48 Vancomycin HCl (Vanco rx to dose) 1 ea DAILY PRN MISC Per rx protocol 04/29/18 22:00 05/29/18 21:59 Vancomycin HCl 1 gm/Dextrose 275 ml @ 183.708 mls/hr Q12HR IVPB 05/04/18 21:00 05/09/18 20:59 Doris Ramos MD May 04, 2018 16:26
--- NOTE | 2018-05-04 16:38 | General Progress Note ---
Assessment/Plan Assessment/Plan Septic Shock due to Providencia bacteremia, continue broad spectrum antibiotics and vasopressors. ID and CCM following. Decompensated cirrhosis, s/p 6 liter paracentesis, GI following AGNIESZKA due to ATN from sepsis and hypotension, continue to treat underlying septic shock Acute metabolic encephalopathy, continue to treat underlying medical issues, continue lactulose via NGT Acute hypoxic respiratory failure, vent management per pulm/CCM DVT Prophylaxis: scd's Subjective Date patient seen: May 04, 2018 Time patient seen: 16:37 ROS Limited/Unobtainable: Yes Allergies: Coded Allergies: No Known Allergies (Unverified , 04/29/18) Subjective Medical followup for multiple medical conditions including septic shock, acute hypoxic respiratory failure, decompensated cirrhosis. He is intubated but awake and alert, failed to wean off vent today per nursing. Objective Last 24 Hour Vital Signs Date Time Temp Pulse Resp B/P (MAP) Pulse Ox O2 Delivery O2 Flow Rate FiO2 05/04/18 15:00 102 20 110/66 (81) 98 05/04/18 14:00 104 23 109/63 (78) 98 05/04/18 13:09 99 18 35 05/04/18 13:00 95 21 103/58 (73) 100 05/04/18 12:16 Mechanical Ventilator 05/04/18 12:16 35 05/04/18 12:00 98.6 100 22 114/60 (78) 100 98.6 05/04/18 12:00 99 05/04/18 11:30 99 18 35 05/04/18 11:00 125 26 130/55 (80) 98 05/04/18 10:00 128 26 138/58 (84) 98 05/04/18 09:55 96 05/04/18 09:15 108 25 35 05/04/18 09:00 98.7 110 32 124/64 (84) 98 98.7 05/04/18 08:00 103 05/04/18 08:00 35 05/04/18 08:00 Mechanical Ventilator 05/04/18 08:00 104 18 138/80 (99) 100 05/04/18 07:03 109 25 35 05/04/18 07:00 110 18 137/72 (93) 100 05/04/18 06:00 108 17 114/55 (74) 100 05/04/18 05:25 103 20 35 05/04/18 05:00 101 17 102/53 (69) 100 05/04/18 04:00 35 05/04/18 04:00 97.9 106 17 108/54 (72) 100 97.9 05/04/18 04:00 95 05/04/18 04:00 Mechanical Ventilator 05/04/18 03:00 97 22 111/57 (75) 100 05/04/18 02:45 88 17 35 05/04/18 02:00 105 22 112/56 (74) 95 05/04/18 01:12 96 18 35 05/04/18 01:00 103 22 93/55 (68) 95 05/04/18 00:00 Mechanical Ventilator 05/04/18 00:00 98.0 105 17 95/51 (66) 95 98.0 05/03/18 23:15 106 25 35 05/03/18 23:00 92 20 95/49 (64) 99 05/03/18 22:00 92 20 91/51 (64) 99 05/03/18 21:05 91 21 35 05/03/18 21:00 92 20 101/54 (70) 99 05/03/18 20:00 Mechanical Ventilator 05/03/18 20:00 97.9 94 20 96/52 (67) 100 97.9 05/03/18 20:00 95 05/03/18 20:00 35 05/03/18 19:00 94 20 93/55 (68) 100 05/03/18 18:55 99 24 35 05/03/18 18:13 127/76 05/03/18 18:00 89 22 97/56 (70) 100 05/03/18 17:12 96 22 35 05/03/18 17:00 90 21 85/56 (66) 100 Intake and Output 05/03/18 05/04/18 19:00 07:00 Intake Total 620 ml 460 ml Output Total 8075 ml 1945 ml Balance -7455 ml -1485 ml Free Water 150 ml 60 ml IV Total 450 ml 350 ml Tube Feeding 20 ml 50 ml Output Urine Total 1675 ml 1845 ml Stool Total 100 ml Other 6400 ml # Bowel Movements 1 Laboratory Tests 05/03/18 17:00: Sickle Cell Screen [Pending], PTT Mixing Study [Pending], APTT Patient/Control Mix [Pending], Mix PTT Incubation Time [Pending], Mix PTT Normal/Saline 1:1 Immediate [Pending], Thrombin Time Normal Plasma [Pending], Fibrinogen 174L, Iron Level 56, Total Iron Binding Capacity 147L, Percent Iron Saturation 38, Unsaturated Iron Binding 91L, Ferritin 192, Folate 8.6, Thyroid Stimulating Hormone (TSH) 2.459, Hepatitis A IgM Antibody Negative, Hepatitis B Surface Antigen Negative, Hepatitis B Core IgM Antibody Negative, Hepatitis C Antibody < 0.1, HIV (1&2) Antibody Rapid Negative 05/03/18 19:00: Stool Occult Blood Negative 05/04/18 07:15: White Blood Count 10.8, Red Blood Count 2.79L, Hemoglobin 8.8L, Hematocrit 26.0L , Mean Corpuscular Volume 93, Mean Corpuscular Hemoglobin 31.6H, Mean Corpuscular Hemoglobin Concent 33.9, Red Cell Distribution Width 12.4, Platelet Count 57L, Mean Platelet Volume 6.7, Neutrophils (%) (Auto) , Lymphocytes (%) ( Auto) , Monocytes (%) (Auto) , Eosinophils (%) (Auto) , Basophils (%) (Auto) , Differential Total Cells Counted 100, Neutrophils % (Manual) 78H, Lymphocytes % (Manual) 10L, Monocytes % (Manual) 11H, Eosinophils % (Manual) 0, Basophils % ( Manual) 0, Band Neutrophils 1, Nucleated Red Blood Cells 1, Platelet Estimate DecreasedL, Platelet Morphology Normal, Hypochromasia 2+, Anisocytosis 1+, Spherocytes 1+, Sodium Level 139, Potassium Level 3.5, Chloride Level 106, Carbon Dioxide Level 27, Anion Gap 6, Blood Urea Nitrogen 36H, Creatinine 1.1, Estimat Glomerular Filtration Rate > 60, Glucose Level 124H, Calcium Level 8.2L , Vancomycin Level Trough 25.1H Height (Feet): 5 Height (Inches): 9.00 Weight (Pounds): 314 General Appearance: alert Neck: normal alignment Cardiovascular: regular rhythm Respiratory/Chest: crackles/rales Abdomen: soft Krzysztof Gonsalves MD May 04, 2018 16:38
[2018-05-04] MEDS: Dyna-Hex 2% Top Sol 2oz TOPIC SCH (19:51)
--- NOTE | 2018-05-04 19:57 | General Progress Note ---
Assessment/Plan Assessment/Plan Assessment - Cirrhosis - portal HTN / varicies - presumed EtOH hepatitis - coagulopathy - ascites - s/p tap - sepsis, no SBP on paracentesis fluid - Resp failure - AMS, likely hepatic encephalopathy - hypoglycemia - guarded Recommendations - NGT - lactulose - continue TF - follow labs - broad abx - PPI - wean off of vent and propofol - check AFP - negative Subjective Allergies: Coded Allergies: No Known Allergies (Unverified , 04/29/18) Subjective Above noted d/w staff anesthesiologist intubated more awake today Objective Last 24 Hour Vital Signs Date Time Temp Pulse Resp B/P (MAP) Pulse Ox O2 Delivery O2 Flow Rate FiO2 05/04/18 19:00 102 25 35 05/04/18 19:00 117 12 117/63 (81) 100 05/04/18 18:00 95 23 116/69 (85) 100 05/04/18 17:00 103 26 107/73 (84) 99 05/04/18 16:47 100 23 35 05/04/18 16:00 98.2 83 23 107/61 (76) 100 98.2 05/04/18 16:00 Mechanical Ventilator 05/04/18 16:00 100 05/04/18 16:00 35 05/04/18 15:10 99 18 35 05/04/18 15:00 102 20 110/66 (81) 98 05/04/18 14:00 104 23 109/63 (78) 98 05/04/18 13:09 99 18 35 05/04/18 13:00 95 21 103/58 (73) 100 05/04/18 12:16 Mechanical Ventilator 05/04/18 12:16 35 05/04/18 12:00 98.6 100 22 114/60 (78) 100 98.6 05/04/18 12:00 99 05/04/18 11:30 99 18 35 05/04/18 11:00 125 26 130/55 (80) 98 05/04/18 10:00 128 26 138/58 (84) 98 05/04/18 09:55 96 05/04/18 09:15 108 25 35 05/04/18 09:00 98.7 110 32 124/64 (84) 98 98.7 05/04/18 08:00 103 05/04/18 08:00 35 05/04/18 08:00 Mechanical Ventilator 05/04/18 08:00 104 18 138/80 (99) 100 05/04/18 07:03 109 25 35 05/04/18 07:00 110 18 137/72 (93) 100 05/04/18 06:00 108 17 114/55 (74) 100 05/04/18 05:25 103 20 35 05/04/18 05:00 101 17 102/53 (69) 100 05/04/18 04:00 35 05/04/18 04:00 97.9 106 17 108/54 (72) 100 97.9 05/04/18 04:00 95 05/04/18 04:00 Mechanical Ventilator 05/04/18 03:00 97 22 111/57 (75) 100 05/04/18 02:45 88 17 35 05/04/18 02:00 105 22 112/56 (74) 95 05/04/18 01:12 96 18 35 05/04/18 01:00 103 22 93/55 (68) 95 05/04/18 00:00 Mechanical Ventilator 05/04/18 00:00 98.0 105 17 95/51 (66) 95 98.0 05/03/18 23:15 106 25 35 05/03/18 23:00 92 20 95/49 (64) 99 05/03/18 22:00 92 20 91/51 (64) 99 05/03/18 21:05 91 21 35 05/03/18 21:00 92 20 101/54 (70) 99 05/03/18 20:00 Mechanical Ventilator 05/03/18 20:00 97.9 94 20 96/52 (67) 100 97.9 05/03/18 20:00 95 05/03/18 20:00 35 Intake and Output 05/03/18 05/04/18 19:00 07:00 Intake Total 620 ml 460 ml Output Total 8075 ml 1945 ml Balance -7455 ml -1485 ml Free Water 150 ml 60 ml IV Total 450 ml 350 ml Tube Feeding 20 ml 50 ml Output Urine Total 1675 ml 1845 ml Stool Total 100 ml Other 6400 ml # Bowel Movements 1 Laboratory Tests 05/04/18 07:15: White Blood Count 10.8, Red Blood Count 2.79L, Hemoglobin 8.8L, Hematocrit 26.0L , Mean Corpuscular Volume 93, Mean Corpuscular Hemoglobin 31.6H, Mean Corpuscular Hemoglobin Concent 33.9, Red Cell Distribution Width 12.4, Platelet Count 57L, Mean Platelet Volume 6.7, Neutrophils (%) (Auto) , Lymphocytes (%) ( Auto) , Monocytes (%) (Auto) , Eosinophils (%) (Auto) , Basophils (%) (Auto) , Differential Total Cells Counted 100, Neutrophils % (Manual) 78H, Lymphocytes % (Manual) 10L, Monocytes % (Manual) 11H, Eosinophils % (Manual) 0, Basophils % ( Manual) 0, Band Neutrophils 1, Nucleated Red Blood Cells 1, Platelet Estimate DecreasedL, Platelet Morphology Normal, Hypochromasia 2+, Anisocytosis 1+, Spherocytes 1+, Sodium Level 139, Potassium Level 3.5, Chloride Level 106, Carbon Dioxide Level 27, Anion Gap 6, Blood Urea Nitrogen 36H, Creatinine 1.1, Estimat Glomerular Filtration Rate > 60, Glucose Level 124H, Calcium Level 8.2L , Vancomycin Level Trough 25.1H Height (Feet): 5 Height (Inches): 9.00 Weight (Pounds): 314 Objective WDWN WM NCAT supple CTA RRR Soft / Obese trace edema sedated Pierre Suggs MD May 04, 2018 19:57
[2018-05-04] MEDS: Vancomycin 1gm/D5W 275ml IVPB SCH ×2 (21:01)
--- NOTE | 2018-05-04 22:23 | Consultation ---
History of Present Illness General Date patient seen: May 04, 2018 Chief Complaint: Altered Level of Consciousness Reason for Consultation: lower extremity wounds Present Illness HPI 57 year old male with multiple medical comorbidities presented to [facility] in septic shock and noted to have bacteremia. currently intubated and on ventilatory support in ICU. upon admission noted to have bilateral lower extremity wounds. surgery called to evaluate for possible etiology of sepsis. patient seen, chart reviewed, patient examined. currently unable to obtain history from patient. Allergies: Coded Allergies: No Known Allergies (Unverified , 04/29/18) Medication History Scheduled Ascorbic Acid* (Ascorbic Acid*), 500 MG ORAL DAILY, (Reported) Furosemide* (Lasix*), 40 MG ORAL DAILY, (Reported) Multivitamin with Minerals (Multivitamins with Minerals), 1 TAB ORAL DAILY, ( Reported) Spironolactone* (Spironolactone*), 25 MG ORAL DAILY, (Reported) Zinc Sulfate (Zinc Sulfate*), 220 MG ORAL DAILY, (Reported) Scheduled PRN Hydrocodone Bit/Acetaminophen 5-325* (Dobbins 5-325*), 1 TAB ORAL Q6H PRN for For Pain, (Reported) Miscellaneous Medications Beta-Carotene (Beta Carotene), 25,000 UNIT PO, (Reported) Lactulose (Lactulose*), 30 ML ORAL, (Reported) Magnesium Oxide (Magnesium), 400 MG PO, (Reported) Pentoxifylline* (Trental*), 400 MG ORAL, (Reported) Discontinued Medications Multivitamins* (Multivitamins*), 1 TAB ORAL DAILY, (Reported) Discontinued Reason: Prescription changed Patient History Limited by: medical condition History Provided By: Medical Record, PMD Healthcare decision maker none listed Resuscitation status Full Code Advanced Directive on File No Past Medical/Surgical History Past Medical/Surgical History: (1) Wound of lower extremity (2) Hyperbilirubinemia (3) Acute kidney failure (4) Shock, septic (5) Altered mental state (6) Cellulitis (7) Cirrhosis of liver (8) Lactic acid acidosis (9) Acute encephalopathy (10) Acute respiratory failure without hypercapnia (11) Gram negative sepsis (12) Coagulopathy (13) Thrombocytopenia Review of Systems ROS Narrative cannot obtain given patients medical history Physical Exam General Appearance: other Lines, tubes and drains: grimm cath HEENT: atraumatic Respiratory/Chest: on vent Cardiovascular/Chest: tachycardia Abdomen: soft, distended, other - fluid shift Extremities: moderate edema, other Skin Exam: other Neurologic: unresponsiveness Last 24 Hour Vital Signs Date Time Temp Pulse Resp B/P (MAP) Pulse Ox O2 Delivery O2 Flow Rate FiO2 05/04/18 20:51 101 24 35 05/04/18 19:00 102 25 35 05/04/18 19:00 117 12 117/63 (81) 100 05/04/18 18:00 95 23 116/69 (85) 100 05/04/18 17:00 103 26 107/73 (84) 99 05/04/18 16:47 100 23 35 05/04/18 16:00 98.2 83 23 107/61 (76) 100 98.2 05/04/18 16:00 Mechanical Ventilator 05/04/18 16:00 100 05/04/18 16:00 35 05/04/18 15:10 99 18 35 05/04/18 15:00 102 20 110/66 (81) 98 05/04/18 14:00 104 23 109/63 (78) 98 05/04/18 13:09 99 18 35 05/04/18 13:00 95 21 103/58 (73) 100 05/04/18 12:16 Mechanical Ventilator 05/04/18 12:16 35 05/04/18 12:00 98.6 100 22 114/60 (78) 100 98.6 05/04/18 12:00 99 05/04/18 11:30 99 18 35 05/04/18 11:00 125 26 130/55 (80) 98 05/04/18 10:00 128 26 138/58 (84) 98 05/04/18 09:55 96 05/04/18 09:15 108 25 35 05/04/18 09:00 98.7 110 32 124/64 (84) 98 98.7 05/04/18 08:00 103 05/04/18 08:00 35 05/04/18 08:00 Mechanical Ventilator 05/04/18 08:00 104 18 138/80 (99) 100 05/04/18 07:03 109 25 35 05/04/18 07:00 110 18 137/72 (93) 100 05/04/18 06:00 108 17 114/55 (74) 100 05/04/18 05:25 103 20 35 05/04/18 05:00 101 17 102/53 (69) 100 05/04/18 04:00 35 05/04/18 04:00 97.9 106 17 108/54 (72) 100 97.9 05/04/18 04:00 95 05/04/18 04:00 Mechanical Ventilator 05/04/18 03:00 97 22 111/57 (75) 100 05/04/18 02:45 88 17 35 05/04/18 02:00 105 22 112/56 (74) 95 05/04/18 01:12 96 18 35 05/04/18 01:00 103 22 93/55 (68) 95 05/04/18 00:00 Mechanical Ventilator 05/04/18 00:00 98.0 105 17 95/51 (66) 95 98.0 05/03/18 23:15 106 25 35 05/03/18 23:00 92 20 95/49 (64) 99 Intake and Output 05/03/18 05/04/18 19:00 07:00 Intake Total 620 ml 460 ml Output Total 8075 ml 1945 ml Balance -7455 ml -1485 ml Free Water 150 ml 60 ml IV Total 450 ml 350 ml Tube Feeding 20 ml 50 ml Output Urine Total 1675 ml 1845 ml Stool Total 100 ml Other 6400 ml # Bowel Movements 1 Laboratory Tests Test 05/04/18 07:15 White Blood Count 10.8 K/UL (4.8-10.8) Red Blood Count 2.79 M/UL (4.70-6.10) L Hemoglobin 8.8 G/DL (14.2-18.0) L Hematocrit 26.0 % (42.0-52.0) L Mean Corpuscular Volume 93 FL (80-99) Mean Corpuscular Hemoglobin 31.6 PG (27.0-31.0) H Mean Corpuscular Hemoglobin Concent 33.9 G/DL (32.0-36.0) Red Cell Distribution Width 12.4 % (11.6-14.8) Platelet Count 57 K/UL (150-450) L Mean Platelet Volume 6.7 FL (6.5-10.1) Neutrophils (%) (Auto) % (45.0-75.0) Lymphocytes (%) (Auto) % (20.0-45.0) Monocytes (%) (Auto) % (1.0-10.0) Eosinophils (%) (Auto) % (0.0-3.0) Basophils (%) (Auto) % (0.0-2.0) Differential Total Cells Counted 100 Neutrophils % (Manual) 78 % (45-75) H Lymphocytes % (Manual) 10 % (20-45) L Monocytes % (Manual) 11 % (1-10) H Eosinophils % (Manual) 0 % (0-3) Basophils % (Manual) 0 % (0-2) Band Neutrophils 1 % (0-8) Nucleated Red Blood Cells 1 /100 WBC Platelet Estimate Decreased L Platelet Morphology Normal Hypochromasia 2+ Anisocytosis 1+ Spherocytes 1+ Sodium Level 139 MMOL/L (136-145) Potassium Level 3.5 MMOL/L (3.5-5.1) Chloride Level 106 MMOL/L (98-107) Carbon Dioxide Level 27 MMOL/L (21-32) Anion Gap 6 mmol/L (5-15) Blood Urea Nitrogen 36 mg/dL (7-18) H Creatinine 1.1 MG/DL (0.55-1.30) Estimat Glomerular Filtration Rate > 60 mL/min (>60) Glucose Level 124 MG/DL (74-106) H Calcium Level 8.2 MG/DL (8.5-10.1) L Vancomycin Level Trough 25.1 ug/mL (5.0-12.0) H Microbiology Date/Time Source Procedure Growth Status 05/04/18 05:00 Stool Clostridium difficile Toxin Assay - Final Complete Height (Feet): 5 Height (Inches): 9.00 Weight (Pounds): 314 Medications Current Medications Medications (Trade) Dose Ordered Sig/Ry Route PRN Reason Start Time Stop Time Status Last Admin Dose Admin Chlorhexidine Gluconate (Fatemeh-Hex 2%) 1 applic DAILY@1999 TOPIC 05/01/18 20:00 05/31/18 19:59 05/04/18 19:51 Lactulose (Cephulac) 20 gm THREE TIMES A DAY NG 04/30/18 13:00 05/30/18 12:59 05/04/18 18:31 Lorazepam (Ativan 2mg/ml 1ml) 2 mg Q4H PRN IV For Anxiety 04/30/18 13:30 05/07/18 13:29 05/04/18 13:00 Midazolam HCl (Versed 2mg/2ml vial) 2 mg Q2H PRN IVP Agitation 04/30/18 19:45 05/30/18 19:44 Pantoprazole (Protonix) 40 mg DAILY IVP 04/30/18 09:00 05/30/18 08:59 05/04/18 08:49 Pentoxifylline (TRENtal) 400 mg THREE TIMES A DAY ORAL 05/01/18 09:00 05/31/18 08:59 05/03/18 18:13 Piperacillin Sod/ Tazobactam Sod 3.375 gm/Dextrose 100 ml @ 25 mls/hr EVERY 8 HOURS IVPB 05/04/18 22:00 05/09/18 21:59 05/04/18 21:32 Rifaximin (Xifaxan) 550 mg EVERY 12 HOURS NG 05/01/18 09:00 05/08/18 08:59 05/04/18 21:01 Vancomycin HCl (Vanco rx to dose) 1 ea DAILY PRN MISC Per rx protocol 04/29/18 22:00 05/29/18 21:59 Vancomycin HCl 1 gm/Dextrose 275 ml @ 183.708 mls/hr Q12HR IVPB 05/04/18 21:00 05/09/18 20:59 05/04/18 21:01 Assessment/Plan Problem List: (1) Wound of lower extremity Assessment & Plan: Multiple venous stasis ulcers of the right lower extremity. Bilateral lower extremity edema Full thickness ulcer noted to lateral right lower extremity (L)7.5cm x (W02.7cm x (D)0.2cm with wound bed grace,(+) maceration. no odor noted .Minimal serous exudate noted Full thickness ulcer noted to medial right lower extremity (L)2.5cm x (W)3cm x ( D)0.4cm with wound bed grace and slightly macerated borders .Minimal serous exudate noted Full thickness ulcer posterior R tibia (L)2.5cm x (W)1cm x (D)0.2cm with wound bed grace ,moist with minimal serous exudate. Hemosiderin noted to bilat lower ext with xeroses. Bilateral heels are dry but blanching. L lower ext noted to be oozing minimal serous exudate but no ulcerations noted. Non-blanching erythema noted Plan: Cleanse Ulcerations lateral,medial and posterior RLE with Saline.Apply Calcium Alginate to wounds with ABD and wrap with Kerlix from base of toes daily and prn if soiled. Cavilon wipe to sacrum and cover with foam drsg .Change foam drsg [id number] day and prn. Off-load heels with pillows . Support Surface overlay on bed. Reposition at least every 2hours as tolerated. ICD Codes: S81.809A - Unspecified open wound, unspecified lower leg, initial encounter SNOMED: 26525566, [id number] (2) Shock, septic ICD Codes: A41.9 - Sepsis, unspecified organism; R65.21 - Severe sepsis with septic shock SNOMED: [id number] Logan Gracia May 04, 2018 22:23
[2018-05-05] VITALS (24 sets, daily range): BP systolic 109–157; BP diastolic 49–80
[2018-05-05 06:42] LABS: HEMATOCRIT 26.3 % (42.0-52.0); HEMOGLOBIN 9.2 G/DL (14.2-18.0); MEAN CORPUSCULAR VOLUME 93 FL (80-99); PLATELET COUNT 68 K/UL (150-450); RED BLOOD COUNT 2.82 M/UL (4.70-6.10); RED CELL DISTRIBUTION WIDTH 12.5 % (11.6-14.8); WHITE BLOOD COUNT 11.7 K/UL (4.8-10.8)
[2018-05-05 07:14] LABS: ALANINE AMINOTRANSFERASE 41 U/L (12-78); ALBUMIN 1.7 G/DL (3.4-5.0); ALBUMIN/GLOBULIN RATIO 0.4 (1.0-2.7); ALKALINE PHOSPHATASE 114 U/L (46-116); ANION GAP 6 mmol/L (5-15); ASPARTATE AMINO TRANSFERASE 67 U/L (15-37); BLOOD UREA NITROGEN 36 mg/dL (7-18); CALCIUM 8.3 MG/DL (8.5-10.1); CARBON DIOXIDE 29 MMOL/L (21-32); CHLORIDE 108 MMOL/L (98-107); CREATININE 1.1 MG/DL (0.55-1.30); POTASSIUM 3.5 MMOL/L (3.5-5.1); SODIUM 142 MMOL/L (136-145)
[2018-05-05] MEDS: Pantoprazole Inj IVP SCH (09:34)
[2018-05-05] MEDS: Vancomycin 1gm/D5W 275ml IVPB SCH ×4 (09:34→21:27)
[2018-05-05] MEDS: Lactulose 20gm/30ml UDC NG SCH ×3 (09:34→18:07)
--- NOTE | 2018-05-05 11:18 | General Progress Note ---
Assessment/Plan Assessment/Plan ASSESSMENT AND RECS: 1. Thrombocytopenia, potentially secondary to septic shock, severe sepsis, end- organ damage, closely monitor, platelet count downtrending peripheral smear has been reviewed. The patient continues to have lactic acidosis, improved at this time and, in addition, imaging reviewed. --> The patient noted to be with cirrhosis with portal hypertension, expected coagulopathy. --> hepatitis and hiv reviewed and is negative --> report and give Vit K and ffp and inr is elevated 2. Coagulopathy with portal hypertension, cirrhosis of liver, large volume ascites, requires paracentesis and requires vitamin K and --> vit K prn basis --> on abx, vanc/zosyn 3. Leukocytosis, likely secondary to underlying infection, potentially related to underlying sepsis versus other causes such as SBP; but again has been seen by GI team --> s/p paracentesis and prn in the future 4. AGNIESZKA, on IV fluids as needed 5. Acute encephalopathy. 6. Septic shock. Subjective Constitutional: Denies: no symptoms, chills, diaphoresis, fever, malaise, weakness, other HEENT: Denies: no symptoms, eye pain, blurred vision, tearing, double vision, ear pain, ear discharge, nose pain, nose congestion, throat pain, throat swelling, mouth pain, mouth swelling, other Cardiovascular: Denies: no symptoms, chest pain, edema, irregular heart rate, lightheadedness, palpitations, syncope, other Respiratory: Denies: no symptoms, cough, orthopnea, shortness of breath, SOB with excertion, SOB at rest, sputum, stridor, wheezing, other Gastrointestinal/Abdominal: Denies: no symptoms, abdomen distended, abdominal pain, black stools, tarry stools, blood in stool, constipated, diarrhea, difficulty swallowing, nausea, poor appetite, poor fluid intake, rectal bleeding , vomiting, other Genitourinary: Denies: no symptoms, burning, discharge, frequency, flank pain, hematuria, incontinence, pain, urgency, other Neurologic/Psychiatric: Denies: no symptoms, anxiety, depressed, emotional problems, headache, numbness, paresthesia, pre-existing deficit, seizure, tingling, tremors, weakness, other Endocrine: Denies: no symptoms, excessive sweating, flushing, intolerance to cold, intolerance to heat, increased hunger, increased thirst, increased urine, unexplained weight gain, unexplained weight loss, other Hematologic/Lymphatic: Denies: no symptoms, anemia, easy bleeding, easy bruising, other Allergies: Coded Allergies: No Known Allergies (Unverified , 04/29/18) Subjective s/p paracentesis, is s/p 6L Objective Last 24 Hour Vital Signs Date Time Temp Pulse Resp B/P (MAP) Pulse Ox O2 Delivery O2 Flow Rate FiO2 05/05/18 11:00 121 27 121/73 (89) 97 05/05/18 10:53 123 24 30 05/05/18 10:00 110 23 121/73 (89) 98 05/05/18 09:35 135/70 05/05/18 09:05 112 20 30 05/05/18 09:00 114 23 138/70 (92) 98 05/05/18 08:00 Mechanical Ventilator 05/05/18 08:00 98.3 100 20 120/69 (86) 100 98.3 05/05/18 08:00 35 05/05/18 07:26 98 22 30 05/05/18 07:00 100 20 120/69 (86) 100 05/05/18 06:00 106 21 126/65 (85) 100 05/05/18 05:28 105 26 30 05/05/18 05:00 109 20 118/61 (80) 100 05/05/18 04:00 98.8 108 20 115/65 (82) 99 98.8 05/05/18 04:00 108 05/05/18 04:00 Mechanical Ventilator 05/05/18 04:00 35 05/05/18 03:00 95 20 110/62 (78) 100 05/05/18 02:43 99 22 35 05/05/18 02:00 99 18 112/63 (79) 100 05/05/18 01:00 99 18 109/63 (78) 99 05/05/18 00:38 94 20 35 05/05/18 00:00 98.3 96 16 111/64 (80) 99 98.3 05/05/18 00:00 96 05/05/18 00:00 Mechanical Ventilator 05/04/18 23:25 102 24 35 05/04/18 23:00 100 19 114/59 (77) 100 05/04/18 22:18 98.6 97 19 114/69 (84) 100 98.6 05/04/18 22:00 89 18 115/70 (85) 100 05/04/18 21:00 102 18 111/64 (80) 100 05/04/18 20:51 101 24 35 05/04/18 20:00 98.6 97 19 114/69 (84) 100 98.6 05/04/18 20:00 97 05/04/18 20:00 Mechanical Ventilator 05/04/18 20:00 35 05/04/18 19:00 102 25 35 05/04/18 19:00 117 12 117/63 (81) 100 05/04/18 18:00 95 23 116/69 (85) 100 05/04/18 17:00 103 26 107/73 (84) 99 05/04/18 16:47 100 23 35 05/04/18 16:00 98.2 83 23 107/61 (76) 100 98.2 05/04/18 16:00 Mechanical Ventilator 05/04/18 16:00 100 05/04/18 16:00 35 05/04/18 15:10 99 18 35 05/04/18 15:00 102 20 110/66 (81) 98 05/04/18 14:00 104 23 109/63 (78) 98 05/04/18 13:09 99 18 35 05/04/18 13:00 95 21 103/58 (73) 100 05/04/18 12:16 Mechanical Ventilator 05/04/18 12:16 35 05/04/18 12:00 98.6 100 22 114/60 (78) 100 98.6 05/04/18 12:00 99 05/04/18 11:30 99 18 35 Intake and Output 05/04/18 05/05/18 19:00 07:00 Intake Total 390 ml 970 ml Output Total 1120 ml 1140 ml Balance -730 ml -170 ml Free Water 30 ml IV Total 100 ml 400 ml Tube Feeding 290 ml 540 ml Output Urine Total 730 ml 840 ml Stool Total 390 ml 300 ml Laboratory Tests 05/05/18 06:30: White Blood Count 11.7H, Red Blood Count 2.82L, Hemoglobin 9.2L, Hematocrit 26.3L, Mean Corpuscular Volume 93, Mean Corpuscular Hemoglobin 32.6H, Mean Corpuscular Hemoglobin Concent 34.9, Red Cell Distribution Width 12.5, Platelet Count 68L, Mean Platelet Volume 7.1, Neutrophils (%) (Auto) , Lymphocytes (%) ( Auto) , Monocytes (%) (Auto) , Eosinophils (%) (Auto) , Basophils (%) (Auto) , Differential Total Cells Counted 100, Neutrophils % (Manual) 73, Lymphocytes % ( Manual) 10L, Monocytes % (Manual) 12H, Eosinophils % (Manual) 1, Basophils % ( Manual) 0, Band Neutrophils 4, Platelet Estimate DecreasedL, Platelet Morphology Normal, Hypochromasia 1+, Sodium Level 142, Potassium Level 3.5, Chloride Level 108H, Carbon Dioxide Level 29, Anion Gap 6, Blood Urea Nitrogen 36H, Creatinine 1.1, Estimat Glomerular Filtration Rate > 60, Glucose Level 141H , Calcium Level 8.3L, Total Bilirubin 6.0H, Direct Bilirubin 3.0H, Aspartate Amino Transf (AST/SGOT) 67H, Alanine Aminotransferase (ALT/SGPT) 41, Alkaline Phosphatase 114, Total Protein 6.4, Albumin 1.7L, Globulin 4.7, Albumin/ Globulin Ratio 0.4L Height (Feet): 5 Height (Inches): 9.00 Weight (Pounds): 316 General Appearance: no apparent distress EENT: TMs normal Neck: supple Cardiovascular: normal rate Respiratory/Chest: lungs clear Abdomen: soft Extremities: normal range of motion Edema: 1+ Leg (L), 1+ Leg (R) Edema: mild edema Neurologic: alert Skin: warm/dry Eric Irizarry MD May 05, 2018 11:18
--- NOTE | 2018-05-05 12:52 | General Surgery Progress Note ---
General Surgery-Progress Note Subjective Additional Comments no acute overnight events. slowly recovering. wounds stable. Objective Last 24 Hour Vital Signs Date Time Temp Pulse Resp B/P (MAP) Pulse Ox O2 Delivery O2 Flow Rate FiO2 05/05/18 11:00 121 27 121/73 (89) 97 05/05/18 10:53 123 24 30 05/05/18 10:00 110 23 121/73 (89) 98 05/05/18 09:35 135/70 05/05/18 09:05 112 20 30 05/05/18 09:00 114 23 138/70 (92) 98 05/05/18 08:00 105 05/05/18 08:00 Mechanical Ventilator 05/05/18 08:00 98.3 100 20 120/69 (86) 100 98.3 05/05/18 08:00 35 05/05/18 07:26 98 22 30 05/05/18 07:00 100 20 120/69 (86) 100 05/05/18 06:00 106 21 126/65 (85) 100 05/05/18 05:28 105 26 30 05/05/18 05:00 109 20 118/61 (80) 100 05/05/18 04:00 98.8 108 20 115/65 (82) 99 98.8 05/05/18 04:00 108 05/05/18 04:00 Mechanical Ventilator 05/05/18 04:00 35 05/05/18 03:00 95 20 110/62 (78) 100 05/05/18 02:43 99 22 35 05/05/18 02:00 99 18 112/63 (79) 100 05/05/18 01:00 99 18 109/63 (78) 99 05/05/18 00:38 94 20 35 05/05/18 00:00 98.3 96 16 111/64 (80) 99 98.3 05/05/18 00:00 96 05/05/18 00:00 Mechanical Ventilator 05/04/18 23:25 102 24 35 05/04/18 23:00 100 19 114/59 (77) 100 05/04/18 22:18 98.6 97 19 114/69 (84) 100 98.6 05/04/18 22:00 89 18 115/70 (85) 100 05/04/18 21:00 102 18 111/64 (80) 100 05/04/18 20:51 101 24 35 05/04/18 20:00 98.6 97 19 114/69 (84) 100 98.6 05/04/18 20:00 97 05/04/18 20:00 Mechanical Ventilator 05/04/18 20:00 35 05/04/18 19:00 102 25 35 05/04/18 19:00 117 12 117/63 (81) 100 05/04/18 18:00 95 23 116/69 (85) 100 05/04/18 17:00 103 26 107/73 (84) 99 05/04/18 16:47 100 23 35 05/04/18 16:00 98.2 83 23 107/61 (76) 100 98.2 05/04/18 16:00 Mechanical Ventilator 05/04/18 16:00 100 05/04/18 16:00 35 05/04/18 15:10 99 18 35 05/04/18 15:00 102 20 110/66 (81) 98 05/04/18 14:00 104 23 109/63 (78) 98 05/04/18 13:09 99 18 35 05/04/18 13:00 95 21 103/58 (73) 100 I&O Intake and Output 05/04/18 05/05/18 19:00 07:00 Intake Total 390 ml 970 ml Output Total 1120 ml 1140 ml Balance -730 ml -170 ml Free Water 30 ml IV Total 100 ml 400 ml Tube Feeding 290 ml 540 ml Output Urine Total 730 ml 840 ml Stool Total 390 ml 300 ml Dressing: saturated Wound: other Drains: other Cardiovascular: RSR Respiratory: clear Abdomen: soft, non-tender, present bowel sounds Extremities: other Laboratory Tests Test 05/05/18 06:30 White Blood Count 11.7 K/UL (4.8-10.8) H Red Blood Count 2.82 M/UL (4.70-6.10) L Hemoglobin 9.2 G/DL (14.2-18.0) L Hematocrit 26.3 % (42.0-52.0) L Mean Corpuscular Volume 93 FL (80-99) Mean Corpuscular Hemoglobin 32.6 PG (27.0-31.0) H Mean Corpuscular Hemoglobin Concent 34.9 G/DL (32.0-36.0) Red Cell Distribution Width 12.5 % (11.6-14.8) Platelet Count 68 K/UL (150-450) L Mean Platelet Volume 7.1 FL (6.5-10.1) Neutrophils (%) (Auto) % (45.0-75.0) Lymphocytes (%) (Auto) % (20.0-45.0) Monocytes (%) (Auto) % (1.0-10.0) Eosinophils (%) (Auto) % (0.0-3.0) Basophils (%) (Auto) % (0.0-2.0) Differential Total Cells Counted 100 Neutrophils % (Manual) 73 % (45-75) Lymphocytes % (Manual) 10 % (20-45) L Monocytes % (Manual) 12 % (1-10) H Eosinophils % (Manual) 1 % (0-3) Basophils % (Manual) 0 % (0-2) Band Neutrophils 4 % (0-8) Platelet Estimate Decreased L Platelet Morphology Normal Hypochromasia 1+ Sodium Level 142 MMOL/L (136-145) Potassium Level 3.5 MMOL/L (3.5-5.1) Chloride Level 108 MMOL/L (98-107) H Carbon Dioxide Level 29 MMOL/L (21-32) Anion Gap 6 mmol/L (5-15) Blood Urea Nitrogen 36 mg/dL (7-18) H Creatinine 1.1 MG/DL (0.55-1.30) Estimat Glomerular Filtration Rate > 60 mL/min (>60) Glucose Level 141 MG/DL (74-106) H Calcium Level 8.3 MG/DL (8.5-10.1) L Total Bilirubin 6.0 MG/DL (0.2-1.0) H Direct Bilirubin 3.0 MG/DL (0.0-0.3) H Aspartate Amino Transf (AST/SGOT) 67 U/L (15-37) H Alanine Aminotransferase (ALT/SGPT) 41 U/L (12-78) Alkaline Phosphatase 114 U/L (46-116) Total Protein 6.4 G/DL (6.4-8.2) Albumin 1.7 G/DL (3.4-5.0) L Globulin 4.7 g/dL Albumin/Globulin Ratio 0.4 (1.0-2.7) L Plan Problems: (1) Wound of lower extremity Assessment & Plan: Multiple venous stasis ulcers of the right lower extremity. Bilateral lower extremity edema Full thickness ulcer noted to lateral right lower extremity (L)7.5cm x (W02.7cm x (D)0.2cm with wound bed grace,(+) maceration. no odor noted .Minimal serous exudate noted Full thickness ulcer noted to medial right lower extremity (L)2.5cm x (W)3cm x ( D)0.4cm with wound bed grace and slightly macerated borders .Minimal serous exudate noted Full thickness ulcer posterior R tibia (L)2.5cm x (W)1cm x (D)0.2cm with wound bed grace ,moist with minimal serous exudate. Hemosiderin noted to bilat lower ext with xeroses. Bilateral heels are dry but blanching. L lower ext noted to be oozing minimal serous exudate but no ulcerations noted. Non-blanching erythema noted wounds present upon admission Plan: Cleanse Ulcerations lateral,medial and posterior RLE with Saline.Apply Calcium Alginate to wounds with ABD and wrap with Kerlix from base of toes daily and prn if soiled. Cavilon wipe to sacrum and cover with foam drsg .Change foam drsg [id number] day and prn. Off-load heels with pillows . Support Surface overlay on bed. Reposition at least every 2hours as tolerated. (2) Shock, septic Logan Gracia May 05, 2018 12:52
--- NOTE | 2018-05-05 13:51 | Pulmonolgy Critical Care Note ---
Critical Care - Asmt/Plan Problems: (1) Gram negative sepsis (2) Acute kidney failure (3) Hyperbilirubinemia (4) Shock, septic (5) Cellulitis (6) Cirrhosis of liver (7) Lactic acid acidosis (8) Acute encephalopathy (9) Altered mental state (10) Acute respiratory failure without hypercapnia (11) Coagulopathy (12) Thrombocytopenia Respiratory: monitor respiratory rate, adjust FIO2 Cardiac: continue to monitor HR/BP Renal: check electrolytes, other - lasix 40 IV x 1 and albumin 25% 25 gm x 1 Infectious Disease: continue antibiotics - nanda and vanco per ID Gastrointestinal: continue feedings/current rate Hematologic: monitor H/H, other - F/U heme onc recs transfuse as needed Neurologic: PRN Ativan Prophylaxis: Protonix Time Spent (Minutes): 60 Notes 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: 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, ID, GI Discussed with: nurses, consultants, family member Critical Care - Objective Last 24 Hour Vital Signs Date Time Temp Pulse Resp B/P (MAP) Pulse Ox O2 Delivery O2 Flow Rate FiO2 05/05/18 13:00 120 14 152/75 (100) 98 05/05/18 12:57 129 28 30 05/05/18 12:00 98.4 116 26 148/64 (92) 96 98.4 05/05/18 12:00 Mechanical Ventilator 05/05/18 12:00 35 05/05/18 11:00 121 27 121/73 (89) 97 05/05/18 10:53 123 24 30 05/05/18 10:00 110 23 121/73 (89) 98 05/05/18 09:35 135/70 05/05/18 09:05 112 20 30 05/05/18 09:00 114 23 138/70 (92) 98 05/05/18 08:00 105 05/05/18 08:00 Mechanical Ventilator 05/05/18 08:00 98.3 100 20 120/69 (86) 100 98.3 05/05/18 08:00 35 05/05/18 07:26 98 22 30 05/05/18 07:00 100 20 120/69 (86) 100 05/05/18 06:00 106 21 126/65 (85) 100 05/05/18 05:28 105 26 30 05/05/18 05:00 109 20 118/61 (80) 100 05/05/18 04:00 98.8 108 20 115/65 (82) 99 98.8 05/05/18 04:00 108 05/05/18 04:00 Mechanical Ventilator 05/05/18 04:00 35 05/05/18 03:00 95 20 110/62 (78) 100 05/05/18 02:43 99 22 35 05/05/18 02:00 99 18 112/63 (79) 100 05/05/18 01:00 99 18 109/63 (78) 99 05/05/18 00:38 94 20 35 05/05/18 00:00 98.3 96 16 111/64 (80) 99 98.3 05/05/18 00:00 96 05/05/18 00:00 Mechanical Ventilator 05/04/18 23:25 102 24 35 05/04/18 23:00 100 19 114/59 (77) 100 05/04/18 22:18 98.6 97 19 114/69 (84) 100 98.6 05/04/18 22:00 89 18 115/70 (85) 100 05/04/18 21:00 102 18 111/64 (80) 100 05/04/18 20:51 101 24 35 05/04/18 20:00 98.6 97 19 114/69 (84) 100 98.6 05/04/18 20:00 97 05/04/18 20:00 Mechanical Ventilator 05/04/18 20:00 35 05/04/18 19:00 102 25 35 05/04/18 19:00 117 12 117/63 (81) 100 05/04/18 18:00 95 23 116/69 (85) 100 05/04/18 17:00 103 26 107/73 (84) 99 05/04/18 16:47 100 23 35 05/04/18 16:00 98.2 83 23 107/61 (76) 100 98.2 05/04/18 16:00 Mechanical Ventilator 05/04/18 16:00 100 05/04/18 16:00 35 05/04/18 15:10 99 18 35 05/04/18 15:00 102 20 110/66 (81) 98 05/04/18 14:00 104 23 109/63 (78) 98 Status: other - morbidly obese, intubated, awake Condition: critical HEENT: atraumatic, normocephalic Neck: full ROM Lungs: rhonchi Heart: HR/BP unstable Abdomen: soft, non-tender, active bowel sounds Extremities: other - BLE dressed Micro: Microbiology Date/Time Source Procedure Growth Status 05/03/18 15:35 Ascities Fluid Gram Stain - Final Resulted 05/03/18 15:35 Ascities Fluid Body Fluid Culture - Preliminary NO GROWTH AFTER 48 HOURS Resulted 05/04/18 05:00 Stool Clostridium difficile Toxin Assay - Final Complete Accucheck: 54 Critical Care - Subjective ROS Limited/Unobtainable: Yes ICU Day: 7 Intubation Day: 7 Interval Events: Attempted SBT this am but stopped 2/2 elevated BP Condition: improving IV Access: central - R IJ EKG Rhythm: Sinus Tachycardia FI02: 30 Vent Support Breath Rate: 16 Vent Support Mode: AC Vent Tidal Volume: 550 Sputum Amount: Large PEEP: 5.0 PIP: 56 Secretions: large thick creamy Fluids: SLIV Drips: None Tube Feeding Amount: 45 I&O: Intake and Output 05/04/18 05/05/18 19:00 07:00 Intake Total 390 ml 970 ml Output Total 1120 ml 1140 ml Balance -730 ml -170 ml Free Water 30 ml IV Total 100 ml 400 ml Tube Feeding 290 ml 540 ml Output Urine Total 730 ml 840 ml Stool Total 390 ml 300 ml Subjective: No c/o CXR: CXR 05/03 with B infiltrates ET-Tube: 8.0 ET Position: 24 Labs: Laboratory Tests Test 05/05/18 06:30 White Blood Count 11.7 K/UL (4.8-10.8) H Red Blood Count 2.82 M/UL (4.70-6.10) L Hemoglobin 9.2 G/DL (14.2-18.0) L Hematocrit 26.3 % (42.0-52.0) L Mean Corpuscular Volume 93 FL (80-99) Mean Corpuscular Hemoglobin 32.6 PG (27.0-31.0) H Mean Corpuscular Hemoglobin Concent 34.9 G/DL (32.0-36.0) Red Cell Distribution Width 12.5 % (11.6-14.8) Platelet Count 68 K/UL (150-450) L Mean Platelet Volume 7.1 FL (6.5-10.1) Neutrophils (%) (Auto) % (45.0-75.0) Lymphocytes (%) (Auto) % (20.0-45.0) Monocytes (%) (Auto) % (1.0-10.0) Eosinophils (%) (Auto) % (0.0-3.0) Basophils (%) (Auto) % (0.0-2.0) Differential Total Cells Counted 100 Neutrophils % (Manual) 73 % (45-75) Lymphocytes % (Manual) 10 % (20-45) L Monocytes % (Manual) 12 % (1-10) H Eosinophils % (Manual) 1 % (0-3) Basophils % (Manual) 0 % (0-2) Band Neutrophils 4 % (0-8) Platelet Estimate Decreased L Platelet Morphology Normal Hypochromasia 1+ Sodium Level 142 MMOL/L (136-145) Potassium Level 3.5 MMOL/L (3.5-5.1) Chloride Level 108 MMOL/L (98-107) H Carbon Dioxide Level 29 MMOL/L (21-32) Anion Gap 6 mmol/L (5-15) Blood Urea Nitrogen 36 mg/dL (7-18) H Creatinine 1.1 MG/DL (0.55-1.30) Estimat Glomerular Filtration Rate > 60 mL/min (>60) Glucose Level 141 MG/DL (74-106) H Calcium Level 8.3 MG/DL (8.5-10.1) L Total Bilirubin 6.0 MG/DL (0.2-1.0) H Direct Bilirubin 3.0 MG/DL (0.0-0.3) H Aspartate Amino Transf (AST/SGOT) 67 U/L (15-37) H Alanine Aminotransferase (ALT/SGPT) 41 U/L (12-78) Alkaline Phosphatase 114 U/L (46-116) Total Protein 6.4 G/DL (6.4-8.2) Albumin 1.7 G/DL (3.4-5.0) L Globulin 4.7 g/dL Albumin/Globulin Ratio 0.4 (1.0-2.7) L Mario Rasmussen MD May 05, 2018 13:51
--- NOTE | 2018-05-05 14:12 | General Progress Note ---
Assessment/Plan Assessment/Plan Septic Shock due to Providencia bacteremia, continue vancomycin, Zosyn and meropenem. ID and CCM following. Decompensated cirrhosis, s/p 6 liter paracentesis, continue rifaximin and lactulose. GI following AGNIESZKA due to ATN from sepsis and hypotension, resolving. Acute metabolic encephalopathy, continue to treat underlying medical issues Acute hypoxic respiratory failure, continue weaning trials as per Pulmonology DVT Prophylaxis: scd's Subjective Date patient seen: May 05, 2018 Time patient seen: 14:07 ROS Limited/Unobtainable: Yes - Unobtainable ROS as patient is intubated Allergies: Coded Allergies: No Known Allergies (Unverified , 04/29/18) Subjective Medical followup for multiple medical conditions including septic shock, acute hypoxic respiratory failure, decompensated cirrhosis. He is intubated but awake and alert, unable to obtain ROS. Objective Last 24 Hour Vital Signs Date Time Temp Pulse Resp B/P (MAP) Pulse Ox O2 Delivery O2 Flow Rate FiO2 05/05/18 13:00 120 14 152/75 (100) 98 05/05/18 12:57 129 28 30 05/05/18 12:00 98.4 116 26 148/64 (92) 96 98.4 05/05/18 12:00 Mechanical Ventilator 05/05/18 12:00 35 05/05/18 11:00 121 27 121/73 (89) 97 05/05/18 10:53 123 24 30 05/05/18 10:00 110 23 121/73 (89) 98 05/05/18 09:35 135/70 05/05/18 09:05 112 20 30 05/05/18 09:00 114 23 138/70 (92) 98 05/05/18 08:00 105 05/05/18 08:00 Mechanical Ventilator 05/05/18 08:00 98.3 100 20 120/69 (86) 100 98.3 05/05/18 08:00 35 05/05/18 07:26 98 22 30 05/05/18 07:00 100 20 120/69 (86) 100 05/05/18 06:00 106 21 126/65 (85) 100 05/05/18 05:28 105 26 30 05/05/18 05:00 109 20 118/61 (80) 100 05/05/18 04:00 98.8 108 20 115/65 (82) 99 98.8 05/05/18 04:00 108 05/05/18 04:00 Mechanical Ventilator 05/05/18 04:00 35 05/05/18 03:00 95 20 110/62 (78) 100 05/05/18 02:43 99 22 35 05/05/18 02:00 99 18 112/63 (79) 100 05/05/18 01:00 99 18 109/63 (78) 99 05/05/18 00:38 94 20 35 05/05/18 00:00 98.3 96 16 111/64 (80) 99 98.3 05/05/18 00:00 96 05/05/18 00:00 Mechanical Ventilator 05/04/18 23:25 102 24 35 05/04/18 23:00 100 19 114/59 (77) 100 05/04/18 22:18 98.6 97 19 114/69 (84) 100 98.6 05/04/18 22:00 89 18 115/70 (85) 100 05/04/18 21:00 102 18 111/64 (80) 100 05/04/18 20:51 101 24 35 05/04/18 20:00 98.6 97 19 114/69 (84) 100 98.6 05/04/18 20:00 97 05/04/18 20:00 Mechanical Ventilator 05/04/18 20:00 35 05/04/18 19:00 102 25 35 05/04/18 19:00 117 12 117/63 (81) 100 05/04/18 18:00 95 23 116/69 (85) 100 05/04/18 17:00 103 26 107/73 (84) 99 05/04/18 16:47 100 23 35 05/04/18 16:00 98.2 83 23 107/61 (76) 100 98.2 05/04/18 16:00 Mechanical Ventilator 05/04/18 16:00 100 05/04/18 16:00 35 05/04/18 15:10 99 18 35 05/04/18 15:00 102 20 110/66 (81) 98 Intake and Output 05/04/18 05/05/18 19:00 07:00 Intake Total 390 ml 970 ml Output Total 1120 ml 1140 ml Balance -730 ml -170 ml Free Water 30 ml IV Total 100 ml 400 ml Tube Feeding 290 ml 540 ml Output Urine Total 730 ml 840 ml Stool Total 390 ml 300 ml Laboratory Tests 05/05/18 06:30: White Blood Count 11.7H, Red Blood Count 2.82L, Hemoglobin 9.2L, Hematocrit 26.3L, Mean Corpuscular Volume 93, Mean Corpuscular Hemoglobin 32.6H, Mean Corpuscular Hemoglobin Concent 34.9, Red Cell Distribution Width 12.5, Platelet Count 68L, Mean Platelet Volume 7.1, Neutrophils (%) (Auto) , Lymphocytes (%) ( Auto) , Monocytes (%) (Auto) , Eosinophils (%) (Auto) , Basophils (%) (Auto) , Differential Total Cells Counted 100, Neutrophils % (Manual) 73, Lymphocytes % ( Manual) 10L, Monocytes % (Manual) 12H, Eosinophils % (Manual) 1, Basophils % ( Manual) 0, Band Neutrophils 4, Platelet Estimate DecreasedL, Platelet Morphology Normal, Hypochromasia 1+, Sodium Level 142, Potassium Level 3.5, Chloride Level 108H, Carbon Dioxide Level 29, Anion Gap 6, Blood Urea Nitrogen 36H, Creatinine 1.1, Estimat Glomerular Filtration Rate > 60, Glucose Level 141H , Calcium Level 8.3L, Total Bilirubin 6.0H, Direct Bilirubin 3.0H, Aspartate Amino Transf (AST/SGOT) 67H, Alanine Aminotransferase (ALT/SGPT) 41, Alkaline Phosphatase 114, Total Protein 6.4, Albumin 1.7L, Globulin 4.7, Albumin/ Globulin Ratio 0.4L Height (Feet): 5 Height (Inches): 9.00 Weight (Pounds): 316 General Appearance: alert Respiratory/Chest: chest wall non-tender, lungs clear, normal breath sounds Abdomen: non tender, distended Krzysztof Gonsalves MD May 05, 2018 14:12
[2018-05-05] MEDS: LORazepam Inj 2mg/ml 1ml IV PRN ×2 (14:37→20:36)
--- NOTE | 2018-05-05 20:11 | General Progress Note ---
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 more awake today Objective Last 24 Hour Vital Signs Date Time Temp Pulse Resp B/P (MAP) Pulse Ox O2 Delivery O2 Flow Rate FiO2 05/05/18 19:24 111 24 30 05/05/18 19:00 110 19 121/56 (77) 98 05/05/18 18:08 119/60 05/05/18 18:00 119 22 119/60 (79) 100 05/05/18 17:00 128 19 128/61 (83) 100 05/05/18 16:45 102 18 30 05/05/18 16:00 Mechanical Ventilator 05/05/18 16:00 119 05/05/18 16:00 98.4 119 18 122/62 (82) 100 98.4 05/05/18 16:00 35 05/05/18 15:00 113 21 152/75 (100) 100 05/05/18 14:44 128 25 30 05/05/18 14:23 136/64 05/05/18 14:00 125 22 136/64 (88) 97 05/05/18 13:00 120 14 152/75 (100) 98 05/05/18 12:57 129 28 30 05/05/18 12:00 98.4 116 26 148/64 (92) 96 98.4 05/05/18 12:00 Mechanical Ventilator 05/05/18 12:00 127 05/05/18 12:00 35 05/05/18 11:00 121 27 121/73 (89) 97 05/05/18 10:53 123 24 30 05/05/18 10:00 110 23 121/73 (89) 98 05/05/18 09:35 135/70 05/05/18 09:05 112 20 30 05/05/18 09:00 114 23 138/70 (92) 98 05/05/18 08:00 105 05/05/18 08:00 Mechanical Ventilator 05/05/18 08:00 98.3 100 20 120/69 (86) 100 98.3 05/05/18 08:00 35 05/05/18 07:26 98 22 30 05/05/18 07:00 100 20 120/69 (86) 100 05/05/18 06:00 106 21 126/65 (85) 100 05/05/18 05:28 105 26 30 05/05/18 05:00 109 20 118/61 (80) 100 05/05/18 04:00 98.8 108 20 115/65 (82) 99 98.8 05/05/18 04:00 108 05/05/18 04:00 Mechanical Ventilator 05/05/18 04:00 35 05/05/18 03:00 95 20 110/62 (78) 100 05/05/18 02:43 99 22 35 05/05/18 02:00 99 18 112/63 (79) 100 05/05/18 01:00 99 18 109/63 (78) 99 05/05/18 00:38 94 20 35 05/05/18 00:00 98.3 96 16 111/64 (80) 99 98.3 05/05/18 00:00 96 05/05/18 00:00 Mechanical Ventilator 05/04/18 23:25 102 24 35 05/04/18 23:00 100 19 114/59 (77) 100 05/04/18 22:18 98.6 97 19 114/69 (84) 100 98.6 05/04/18 22:00 89 18 115/70 (85) 100 05/04/18 21:00 102 18 111/64 (80) 100 05/04/18 20:51 101 24 35 Intake and Output 05/04/18 05/05/18 19:00 07:00 Intake Total 390 ml 970 ml Output Total 1120 ml 1140 ml Balance -730 ml -170 ml Free Water 30 ml IV Total 100 ml 400 ml Tube Feeding 290 ml 540 ml Output Urine Total 730 ml 840 ml Stool Total 390 ml 300 ml Laboratory Tests 05/05/18 06:30: White Blood Count 11.7H, Red Blood Count 2.82L, Hemoglobin 9.2L, Hematocrit 26.3L, Mean Corpuscular Volume 93, Mean Corpuscular Hemoglobin 32.6H, Mean Corpuscular Hemoglobin Concent 34.9, Red Cell Distribution Width 12.5, Platelet Count 68L, Mean Platelet Volume 7.1, Neutrophils (%) (Auto) , Lymphocytes (%) ( Auto) , Monocytes (%) (Auto) , Eosinophils (%) (Auto) , Basophils (%) (Auto) , Differential Total Cells Counted 100, Neutrophils % (Manual) 73, Lymphocytes % ( Manual) 10L, Monocytes % (Manual) 12H, Eosinophils % (Manual) 1, Basophils % ( Manual) 0, Band Neutrophils 4, Platelet Estimate DecreasedL, Platelet Morphology Normal, Hypochromasia 1+, Sodium Level 142, Potassium Level 3.5, Chloride Level 108H, Carbon Dioxide Level 29, Anion Gap 6, Blood Urea Nitrogen 36H, Creatinine 1.1, Estimat Glomerular Filtration Rate > 60, Glucose Level 141H , Calcium Level 8.3L, Total Bilirubin 6.0H, Direct Bilirubin 3.0H, Aspartate Amino Transf (AST/SGOT) 67H, Alanine Aminotransferase (ALT/SGPT) 41, Alkaline Phosphatase 114, Total Protein 6.4, Albumin 1.7L, Globulin 4.7, Albumin/ Globulin Ratio 0.4L Height (Feet): 5 Height (Inches): 9.00 Weight (Pounds): 316 Objective WDWN WM NCAT supple CTA RRR Soft / Obese trace edema sedated Pierre Suggs MD May 05, 2018 20:11
[2018-05-05] MEDS: Dyna-Hex 2% Top Sol 2oz TOPIC SCH (20:27)
[2018-05-06] VITALS (24 sets, daily range): BP systolic 102–165; BP diastolic 52–78
[2018-05-06] MEDS: Pantoprazole Inj IVP SCH (09:00)
[2018-05-06] MEDS: Vancomycin 1gm/D5W 275ml IVPB SCH ×4 (09:00→21:29)
[2018-05-06] MEDS: Lactulose 20gm/30ml UDC NG SCH ×3 (09:00→19:15)
--- NOTE | 2018-05-06 11:15 | General Surgery Progress Note ---
General Surgery-Progress Note Subjective Additional Comments edema in extremities improved. Objective Last 24 Hour Vital Signs Date Time Temp Pulse Resp B/P (MAP) Pulse Ox O2 Delivery O2 Flow Rate FiO2 05/06/18 10:32 129 27 30 05/06/18 10:03 101 05/06/18 10:00 106 17 102/70 (81) 100 05/06/18 09:00 100 19 114/56 (75) 100 05/06/18 08:56 101 25 30 05/06/18 08:00 35 05/06/18 08:00 101 05/06/18 08:00 97.8 99 19 114/56 (75) 100 97.8 05/06/18 08:00 Mechanical Ventilator 05/06/18 07:00 92 19 105/59 (74) 100 05/06/18 06:55 102 27 30 05/06/18 06:00 92 23 120/62 (81) 98 05/06/18 05:17 91 24 30 05/06/18 05:00 100 23 130/62 (84) 98 05/06/18 04:00 101 05/06/18 04:00 Mechanical Ventilator 05/06/18 04:00 35 05/06/18 04:00 98.0 101 23 120/62 (81) 98 98.0 05/06/18 03:18 110 28 30 05/06/18 03:00 108 23 126/62 (83) 98 05/06/18 02:00 111 23 117/52 (73) 98 05/06/18 01:00 110 23 130/62 (84) 98 05/06/18 00:45 98 19 30 05/06/18 00:00 104 05/06/18 00:00 98.2 104 24 118/59 (78) 97 98.2 05/06/18 00:00 35 05/06/18 00:00 Mechanical Ventilator 05/05/18 23:00 107 24 119/53 (75) 97 05/05/18 22:52 107 24 30 05/05/18 22:00 106 21 109/52 (71) 100 05/05/18 21:10 108 25 30 05/05/18 21:00 109 21 119/51 (73) 100 05/05/18 20:00 35 05/05/18 20:00 104 05/05/18 20:00 Mechanical Ventilator 05/05/18 20:00 98.0 104 21 116/49 (71) 100 98.0 05/05/18 19:24 111 24 30 05/05/18 19:00 110 19 121/56 (77) 98 05/05/18 18:08 119/60 05/05/18 18:00 119 22 119/60 (79) 100 05/05/18 17:00 128 19 128/61 (83) 100 05/05/18 16:45 102 18 30 05/05/18 16:00 Mechanical Ventilator 05/05/18 16:00 119 05/05/18 16:00 98.4 119 18 122/62 (82) 100 98.4 05/05/18 16:00 35 05/05/18 15:00 113 21 152/75 (100) 100 05/05/18 14:44 128 25 30 05/05/18 14:23 136/64 05/05/18 14:00 125 22 136/64 (88) 97 05/05/18 13:00 120 14 152/75 (100) 98 05/05/18 12:57 129 28 30 05/05/18 12:00 98.4 116 26 148/64 (92) 96 98.4 05/05/18 12:00 Mechanical Ventilator 05/05/18 12:00 127 05/05/18 12:00 35 I&O Intake and Output 05/05/18 05/06/18 19:00 07:00 Intake Total 1134.916 ml 310 ml Output Total 1195 ml 780 ml Balance -60.084 ml -470 ml Free Water 60 ml 30 ml IV Total 534.916 ml 100 ml Tube Feeding 540 ml 180 ml Output Urine Total 895 ml 780 ml Stool Total 300 ml # Bowel Movements 50 Dressing: dry Wound: clean Drains: other Cardiovascular: other Respiratory: other Abdomen: soft, non-tender Extremities: other Laboratory Tests Test 05/06/18 08:17 Vancomycin Level Trough 17.0 ug/mL (5.0-12.0) H Plan Problems: (1) Wound of lower extremity Assessment & Plan: Multiple venous stasis ulcers of the right lower extremity. Bilateral lower extremity edema Full thickness ulcer noted to lateral right lower extremity (L)7.5cm x (W02.7cm x (D)0.2cm with wound bed grace,(+) maceration. no odor noted .Minimal serous exudate noted Full thickness ulcer noted to medial right lower extremity (L)2.5cm x (W)3cm x ( D)0.4cm with wound bed grace and slightly macerated borders .Minimal serous exudate noted Full thickness ulcer posterior R tibia (L)2.5cm x (W)1cm x (D)0.2cm with wound bed grace ,moist with minimal serous exudate. Hemosiderin noted to bilat lower ext with xeroses. Bilateral heels are dry but blanching. L lower ext noted to be oozing minimal serous exudate but no ulcerations noted. Non-blanching erythema noted wounds present upon admission Plan: Cleanse Ulcerations lateral,medial and posterior RLE with Saline.Apply Calcium Alginate to wounds with ABD and wrap with Kerlix from base of toes daily and prn if soiled. Cavilon wipe to sacrum and cover with foam drsg .Change foam drsg [id number] day and prn. Off-load heels with pillows . Support Surface overlay on bed. Reposition at least every 2hours as tolerated. (2) Shock, septic Logan Gracia May 06, 2018 11:15
--- NOTE | 2018-05-06 14:21 | Pulmonolgy Critical Care Note ---
Critical Care - Asmt/Plan Problems: (1) Gram negative sepsis Assessment & Plan: PROVIDENCIA (2) Acute kidney failure (3) Hyperbilirubinemia (4) Shock, septic (5) Cellulitis (6) Cirrhosis of liver (7) Lactic acid acidosis (8) Acute encephalopathy (9) Altered mental state (10) Acute respiratory failure without hypercapnia (11) Coagulopathy (12) Thrombocytopenia Respiratory: monitor respiratory rate, adjust FIO2, other - BRONCHOSCOPY TODAY , POSSIBLE EXTUBATION LATER - 2 MD CONSENT OBTAINED FOR URGENT PROCEDURE Cardiac: continue to monitor HR/BP Renal: check electrolytes, other - SLIV, PRN Lasix Infectious Disease: continue antibiotics - per ID Gastrointestinal: hold feedings - for bronch and possible extubation Hematologic: monitor H/H, other - Monitor Plt, transfuse PRN Prophylaxis: Protonix Disposition: keep in ICU Time Spent (Minutes): 60 Notes 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: 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, ID, other - Heme onc, surgery Discussed with: nurses, consultants Critical Care - Objective Last 24 Hour Vital Signs Date Time Temp Pulse Resp B/P (MAP) Pulse Ox O2 Delivery O2 Flow Rate FiO2 05/06/18 14:00 96 20 126/66 (86) 100 05/06/18 13:00 98.9 105 22 119/61 (80) 100 98.9 05/06/18 12:59 103 26 30 05/06/18 12:00 99.1 9 12 130/61 (84) 100 99.1 05/06/18 12:00 35 05/06/18 12:00 Mechanical Ventilator 05/06/18 11:00 110 17 127/62 (83) 100 05/06/18 10:32 129 27 30 05/06/18 10:03 101 05/06/18 10:00 106 17 102/70 (81) 100 05/06/18 09:00 100 19 114/56 (75) 100 05/06/18 08:56 101 25 30 05/06/18 08:00 35 05/06/18 08:00 101 05/06/18 08:00 97.8 99 19 114/56 (75) 100 97.8 05/06/18 08:00 Mechanical Ventilator 05/06/18 07:00 92 19 105/59 (74) 100 05/06/18 06:55 102 27 30 05/06/18 06:00 92 23 120/62 (81) 98 05/06/18 05:17 91 24 30 05/06/18 05:00 100 23 130/62 (84) 98 05/06/18 04:00 101 05/06/18 04:00 Mechanical Ventilator 05/06/18 04:00 35 05/06/18 04:00 98.0 101 23 120/62 (81) 98 98.0 05/06/18 03:18 110 28 30 05/06/18 03:00 108 23 126/62 (83) 98 05/06/18 02:00 111 23 117/52 (73) 98 05/06/18 01:00 110 23 130/62 (84) 98 05/06/18 00:45 98 19 30 05/06/18 00:00 104 05/06/18 00:00 98.2 104 24 118/59 (78) 97 98.2 05/06/18 00:00 35 05/06/18 00:00 Mechanical Ventilator 05/05/18 23:00 107 24 119/53 (75) 97 05/05/18 22:52 107 24 30 05/05/18 22:00 106 21 109/52 (71) 100 05/05/18 21:10 108 25 30 05/05/18 21:00 109 21 119/51 (73) 100 05/05/18 20:00 35 05/05/18 20:00 104 05/05/18 20:00 Mechanical Ventilator 05/05/18 20:00 98.0 104 21 116/49 (71) 100 98.0 05/05/18 19:24 111 24 30 05/05/18 19:00 110 19 121/56 (77) 98 05/05/18 18:08 119/60 05/05/18 18:00 119 22 119/60 (79) 100 05/05/18 17:00 128 19 128/61 (83) 100 05/05/18 16:45 102 18 30 05/05/18 16:00 Mechanical Ventilator 05/05/18 16:00 119 05/05/18 16:00 98.4 119 18 122/62 (82) 100 98.4 05/05/18 16:00 35 05/05/18 15:00 113 21 152/75 (100) 100 05/05/18 14:44 128 25 30 05/05/18 14:23 136/64 Status: awake Condition: improving HEENT: atraumatic, normocephalic Lungs: rhonchi Heart: HR/BP stable Abdomen: soft, non-tender, active bowel sounds, feeding tube Extremities: other - No CC, bLE dressed, 2+ edema Micro: Microbiology Date/Time Source Procedure Growth Status 05/03/18 15:35 Ascities Fluid Gram Stain - Final Resulted 05/03/18 15:35 Ascities Fluid Body Fluid Culture - Preliminary NO GROWTH AFTER 72 HOURS Resulted 05/04/18 05:00 Stool Clostridium difficile Toxin Assay - Final Complete Accucheck: 54 Critical Care - Subjective ROS Limited/Unobtainable: Yes ICU Day: 8 Intubation Day: 8 Condition: improving IV Access: central EKG Rhythm: Sinus Tachycardia FI02: 30 Vent Support Breath Rate: 16 Vent Support Mode: AC Vent Tidal Volume: 550 Sputum Amount: Moderate PEEP: 5.0 PIP: 38 Drips: SLIV Tube Feeding Amount: 0 I&O: Intake and Output 05/05/18 05/06/18 19:00 07:00 Intake Total 1134.916 ml 310 ml Output Total 1195 ml 780 ml Balance -60.084 ml -470 ml Free Water 60 ml 30 ml IV Total 534.916 ml 100 ml Tube Feeding 540 ml 180 ml Output Urine Total 895 ml 780 ml Stool Total 300 ml # Bowel Movements 50 Subjective: No c/o ET-Tube: 8.0 ET Position: 24 Labs: Laboratory Tests Test 05/06/18 08:17 Vancomycin Level Trough 17.0 ug/mL (5.0-12.0) H Mario Rasmussen MD May 06, 2018 14:21
[2018-05-06] MEDS ORDERED: fentaNYL 100 mcg/2 mL IV SCH (14:30)
[2018-05-06] MEDS ORDERED: Midazolam 2mg/2ml Inj IVP SCH ×2 (14:45→15:00)
--- NOTE | 2018-05-06 15:02 | Operative Note - PDOC ---
Operative Note Operative Note Date of Operation/Procedure: May 06, 2018 Chief Complaint: DICT # [id number] Pre-op Diagnosis: RESPIRATORY FAILURE Procedure: FLEXIBLE FIBEROPTIC BRONCHOSCOPY BRONCHOALVEOLAR LAVAGE THERAPEUTIC ASPIRATION OF AIRWAYS Post-op Diagnosis: Respiratory failure ETT 2 cm above pamela Normal tracheal and endobronchial anatomy Mild bilateral mucoid secretions No endobronchial lesions or obstruction No excessive bleeding or friability Operative Findings: consistent w/pre-op dx studies Surgeon: Mario Rasmussen MD Insole Rounder: N/A Anesthesia: moderate sedation Specimen: yes Complications: none Condition: stable Fluids: None Estimated Blood Loss: none Drains: none Implant(s) used?: No Indications for Procedure Respiratory failure Description of Procedure See dictated op note Mario Rasmussen MD May 06, 2018 15:02
[2018-05-06 15:20] LABS: HEMATOCRIT 25.4 % (42.0-52.0); HEMOGLOBIN 8.5 G/DL (14.2-18.0); MEAN CORPUSCULAR VOLUME 95 FL (80-99); PLATELET COUNT 44 K/UL (150-450); RED BLOOD COUNT 2.69 M/UL (4.70-6.10); RED CELL DISTRIBUTION WIDTH 14.1 % (11.6-14.8); WHITE BLOOD COUNT 12.3 K/UL (4.8-10.8)
[2018-05-06 15:33] LABS: ANION GAP 6 mmol/L (5-15); BLOOD UREA NITROGEN 33 mg/dL (7-18); CALCIUM 8.4 MG/DL (8.5-10.1); CARBON DIOXIDE 28 MMOL/L (21-32); CHLORIDE 110 MMOL/L (98-107); CREATININE 1.1 MG/DL (0.55-1.30); POTASSIUM 3.4 MMOL/L (3.5-5.1); SODIUM 144 MMOL/L (136-145)
[2018-05-06 15:44] LABS: ALANINE AMINOTRANSFERASE 40 U/L (12-78); ALBUMIN 1.6 G/DL (3.4-5.0); ALBUMIN/GLOBULIN RATIO 0.3 (1.0-2.7); ALKALINE PHOSPHATASE 117 U/L (46-116); ASPARTATE AMINO TRANSFERASE 59 U/L (15-37); BILIRUBIN,TOTAL 5.2 MG/DL (0.2-1.0)
[2018-05-06 15:47] LABS: BILIRUBIN,DIRECT 2.3 MG/DL (0.0-0.3)
--- NOTE | 2018-05-06 16:30 | General Progress Note ---
Assessment/Plan Assessment/Plan Septic Shock due to Providencia bacteremia, continue vancomycin, Zosyn and meropenem. ID and CCM following. Acute hypoxic respiratory failure, continue weaning trials as per Pulmonology, possible bronchoscopy as per and extubation Decompensated cirrhosis, s/p 6 liter paracentesis, continue rifaximin and lactulose. GI following AGNIESZKA due to ATN from sepsis and hypotension, resolving. Acute metabolic encephalopathy, continue to treat underlying medical issues DVT Prophylaxis: scd's Subjective Date patient seen: May 06, 2018 Time patient seen: 11:30 ROS Limited/Unobtainable: Yes Allergies: Coded Allergies: No Known Allergies (Unverified , 04/29/18) Subjective Medical followup for multiple medical conditions including septic shock, acute hypoxic respiratory failure, decompensated cirrhosis. He remains intubated and less alert today. Objective Last 24 Hour Vital Signs Date Time Temp Pulse Resp B/P (MAP) Pulse Ox O2 Delivery O2 Flow Rate FiO2 05/06/18 15:14 102 25 30 05/06/18 15:03 98.9 05/06/18 15:00 93 16 124/60 (81) 100 05/06/18 14:33 98.9 05/06/18 14:00 96 20 126/66 (86) 100 05/06/18 13:00 98.9 105 22 119/61 (80) 100 98.9 05/06/18 12:59 103 26 30 05/06/18 12:00 99.1 9 12 130/61 (84) 100 99.1 05/06/18 12:00 35 05/06/18 12:00 Mechanical Ventilator 05/06/18 11:00 110 17 127/62 (83) 100 05/06/18 10:32 129 27 30 05/06/18 10:03 101 05/06/18 10:00 106 17 102/70 (81) 100 05/06/18 09:00 100 19 114/56 (75) 100 05/06/18 08:56 101 25 30 05/06/18 08:00 35 05/06/18 08:00 101 05/06/18 08:00 97.8 99 19 114/56 (75) 100 97.8 05/06/18 08:00 Mechanical Ventilator 05/06/18 07:00 92 19 105/59 (74) 100 9/14/18 06:55 102 27 30 05/06/18 06:00 92 23 120/62 (81) 98 05/06/18 05:17 91 24 30 05/06/18 05:00 100 23 130/62 (84) 98 05/06/18 04:00 101 05/06/18 04:00 Mechanical Ventilator 05/06/18 04:00 35 05/06/18 04:00 98.0 101 23 120/62 (81) 98 98.0 05/06/18 03:18 110 28 30 05/06/18 03:00 108 23 126/62 (83) 98 05/06/18 02:00 111 23 117/52 (73) 98 05/06/18 01:00 110 23 130/62 (84) 98 05/06/18 00:45 98 19 30 05/06/18 00:00 104 05/06/18 00:00 98.2 104 24 118/59 (78) 97 98.2 05/06/18 00:00 35 05/06/18 00:00 Mechanical Ventilator 05/05/18 23:00 107 24 119/53 (75) 97 05/05/18 22:52 107 24 30 05/05/18 22:00 106 21 109/52 (71) 100 05/05/18 21:10 108 25 30 05/05/18 21:00 109 21 119/51 (73) 100 05/05/18 20:00 35 05/05/18 20:00 104 05/05/18 20:00 Mechanical Ventilator 05/05/18 20:00 98.0 104 21 116/49 (71) 100 98.0 05/05/18 19:24 111 24 30 05/05/18 19:00 110 19 121/56 (77) 98 05/05/18 18:08 119/60 05/05/18 18:00 119 22 119/60 (79) 100 05/05/18 17:00 128 19 128/61 (83) 100 05/05/18 16:45 102 18 30 Intake and Output 05/05/18 05/06/18 19:00 07:00 Intake Total 1134.916 ml 310 ml Output Total 1195 ml 780 ml Balance -60.084 ml -470 ml Free Water 60 ml 30 ml IV Total 534.916 ml 100 ml Tube Feeding 540 ml 180 ml Output Urine Total 895 ml 780 ml Stool Total 300 ml # Bowel Movements 50 Laboratory Tests 05/06/18 08:17: Vancomycin Level Trough 17.0H 05/06/18 14:41: White Blood Count 12.3H, Red Blood Count 2.69L, Hemoglobin 8.5L, Hematocrit 25.4L, Mean Corpuscular Volume 95, Mean Corpuscular Hemoglobin 31.5H, Mean Corpuscular Hemoglobin Concent 33.3, Red Cell Distribution Width 14.1, Platelet Count 44L, Mean Platelet Volume 6.7, Neutrophils (%) (Auto) , Lymphocytes (%) ( Auto) , Monocytes (%) (Auto) , Eosinophils (%) (Auto) , Basophils (%) (Auto) , Differential Total Cells Counted 100, Neutrophils % (Manual) 74, Lymphocytes % ( Manual) 9L, Monocytes % (Manual) 9, Eosinophils % (Manual) 2, Basophils % ( Manual) 0, Metamyelocytes % 1H, Band Neutrophils 5, Platelet Estimate DecreasedL , Platelet Morphology Normal, Hypochromasia 1+, Sodium Level 144, Potassium Level 3.4L, Chloride Level 110H, Carbon Dioxide Level 28, Anion Gap 6, Blood Urea Nitrogen 33H, Creatinine 1.1, Estimat Glomerular Filtration Rate > 60, Glucose Level 132H, Calcium Level 8.4L, Total Bilirubin 5.2H, Direct Bilirubin 2.3H, Aspartate Amino Transf (AST/SGOT) 59H, Alanine Aminotransferase (ALT/SGPT ) 40, Alkaline Phosphatase 117H, Total Protein 6.3L, Albumin 1.6L, Globulin 4.7 , Albumin/Globulin Ratio 0.3L Height (Feet): 5 Height (Inches): 9.00 Weight (Pounds): 309 General Appearance: lethargic Cardiovascular: normal rate, regular rhythm Respiratory/Chest: lungs clear, normal breath sounds Abdomen: soft Krzysztof Gonsalves MD May 06, 2018 16:30
--- NOTE | 2018-05-06 16:37 | Infectious Diseases Prog Note ---
Assessment/Plan Assessment/Plan ASSESSMENT AND PLAN: 1. sepsis, shock, providencia bacteremia, likely GI source, ? SBP, mrsa/proteus right leg wound infection, right leg cellulitis, mrsa pna, leukocytosis, fevers s/p bronchoscopy - vancomycin and zosyn - f/u on bronchoscopy results, watch mild leukocytosis - monitor labs and chest x-ray - s/p paracentesis - 6 wbc, doubt sbp - vent support, icu care - off pressors 2. Liver cirrhosis. 3. Portal hypertension. 4. Ascites. 5. Anemia. 6. Thrombocytopenia. 7. Respiratory failure. 8. Low blood pressure. 9. Sepsis, shock. 10. Varices. 11. ETOH hepatitis. 12. Coagulopathy. 13. Altered mental status 14. hepatic encephalopathy 15. Past medical history noted. 16. He has no known allergies. 17. Social history is presumptively I think positive for ETOH. Cannot assess smoking or IV drug abuse. 18. Family history is noncontributory. 19. MAR was noted. 20. Case discussed with RN. 21. ICU care. 22. Case discussed with Dr. Rasmussen. 23. Continue treatment per primary consultants. 24. Poor prognosis. 25. Orders were entered and noted. 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 Subjective Constitutional: Reports: fatigue, other - sedated, intubated, no pressors ; Denies: fever HEENT: Reports: other - oral - intubated Respiratory: Reports: shortness of breath Gastrointestinal/Abdominal: Reports: diarrhea, other - + rectal tube; Denies: nausea, vomiting Genitourinary: Reports: other - + grimm Neurologic: Denies: headache Psychiatric: Denies: depression Skin: Denies: rash Hematologic: Denies: bleeding Musculoskeletal: Denies: pain Allergies: Coded Allergies: No Known Allergies (Unverified , 04/29/18) Objective Vital Signs Last 24 Hour Vital Signs Date Time Temp Pulse Resp B/P (MAP) Pulse Ox O2 Delivery O2 Flow Rate FiO2 05/06/18 15:14 102 25 30 05/06/18 15:03 98.9 05/06/18 15:00 93 16 124/60 (81) 100 05/06/18 14:33 98.9 05/06/18 14:00 96 20 126/66 (86) 100 05/06/18 13:00 98.9 105 22 119/61 (80) 100 98.9 05/06/18 12:59 103 26 30 05/06/18 12:00 99.1 9 12 130/61 (84) 100 99.1 05/06/18 12:00 35 05/06/18 12:00 Mechanical Ventilator 05/06/18 11:00 110 17 127/62 (83) 100 05/06/18 10:32 129 27 30 05/06/18 10:03 101 05/06/18 10:00 106 17 102/70 (81) 100 05/06/18 09:00 100 19 114/56 (75) 100 05/06/18 08:56 101 25 30 05/06/18 08:00 35 05/06/18 08:00 101 05/06/18 08:00 97.8 99 19 114/56 (75) 100 97.8 05/06/18 08:00 Mechanical Ventilator 05/06/18 07:00 92 19 105/59 (74) 100 05/06/18 06:55 102 27 30 05/06/18 06:00 92 23 120/62 (81) 98 05/06/18 05:17 91 24 30 05/06/18 05:00 100 23 130/62 (84) 98 05/06/18 04:00 101 05/06/18 04:00 Mechanical Ventilator 05/06/18 04:00 35 05/06/18 04:00 98.0 101 23 120/62 (81) 98 98.0 05/06/18 03:18 110 28 30 05/06/18 03:00 108 23 126/62 (83) 98 05/06/18 02:00 111 23 117/52 (73) 98 05/06/18 01:00 110 23 130/62 (84) 98 05/06/18 00:45 98 19 30 05/06/18 00:00 104 05/06/18 00:00 98.2 104 24 118/59 (78) 97 98.2 05/06/18 00:00 35 05/06/18 00:00 Mechanical Ventilator 05/05/18 23:00 107 24 119/53 (75) 97 05/05/18 22:52 107 24 30 05/05/18 22:00 106 21 109/52 (71) 100 05/05/18 21:10 108 25 30 05/05/18 21:00 109 21 119/51 (73) 100 05/05/18 20:00 35 05/05/18 20:00 104 05/05/18 20:00 Mechanical Ventilator 05/05/18 20:00 98.0 104 21 116/49 (71) 100 98.0 05/05/18 19:24 111 24 30 05/05/18 19:00 110 19 121/56 (77) 98 05/05/18 18:08 119/60 05/05/18 18:00 119 22 119/60 (79) 100 05/05/18 17:00 128 19 128/61 (83) 100 05/05/18 16:45 102 18 30 Height (Feet): 5 Height (Inches): 9.00 Weight (Pounds): 309 General Appearance: other - intubated and on vent, no pressors HEENT: normocephalic, atraumatic, anicteric Respiratory/Chest: crackles/rales, rhonchi - bilaterally Cardiovascular: normal rate, regular rhythm, no gallop/murmur, no JVD Abdomen: normal bowel sounds, soft, non tender, no organomegaly, non distended Genitourinary: other Extremities: no cyanosis, other - right leg cellulitis less, still some redness Skin: no rash Neurologic/Psychiatric: other - sedated, on vent Lymphatic: no neck adenopathy Musculoskeletal: no effusion Objective Procedure: XRAY Chest 1v 05/01 - chest x-ray - INDICATION: Infection COMPARISON: Chest x-ray dated 04/30/18 FINDINGS: Single frontal view demonstrates a normal cardiomediastinal silhouette. Right internal jugular, grossly unchanged. Nasogastric tube in gastric cavity. Endotracheal tube 5 cm above the pamela. Increasing opacity in bilateral mid to lower lung zones. No pleural effusions. The visualized osseous structures are within normal limits. IMPRESSION: Stable tubes and lines as outlined above. Increasing opacity in bilateral mid to lower lung zones. CT imaging noted - reports noted 05/03/18 - Chest x-ray - Findings: Patchy, heterogeneous airspace opacities and interstitial opacities identified. Heart is stable. Tubes and lines are stable. IMPRESSION: Patchy lung disease likely on the basis of pulmonary edema. Infiltrates not excluded. Microbiology Date/Time Source Procedure Growth Status 05/04/18 05:00 Stool Clostridium difficile Toxin Assay - Final Complete Laboratory Tests Test 05/06/18 08:17 05/06/18 14:41 Vancomycin Level Trough 17.0 ug/mL (5.0-12.0) H White Blood Count 12.3 K/UL (4.8-10.8) H Red Blood Count 2.69 M/UL (4.70-6.10) L Hemoglobin 8.5 G/DL (14.2-18.0) L Hematocrit 25.4 % (42.0-52.0) L Mean Corpuscular Volume 95 FL (80-99) Mean Corpuscular Hemoglobin 31.5 PG (27.0-31.0) H Mean Corpuscular Hemoglobin Concent 33.3 G/DL (32.0-36.0) Red Cell Distribution Width 14.1 % (11.6-14.8) Platelet Count 44 K/UL (150-450) L Mean Platelet Volume 6.7 FL (6.5-10.1) Neutrophils (%) (Auto) % (45.0-75.0) Lymphocytes (%) (Auto) % (20.0-45.0) Monocytes (%) (Auto) % (1.0-10.0) Eosinophils (%) (Auto) % (0.0-3.0) Basophils (%) (Auto) % (0.0-2.0) Differential Total Cells Counted 100 Neutrophils % (Manual) 74 % (45-75) Lymphocytes % (Manual) 9 % (20-45) L Monocytes % (Manual) 9 % (1-10) Eosinophils % (Manual) 2 % (0-3) Basophils % (Manual) 0 % (0-2) Metamyelocytes % 1 % (0-0) H Band Neutrophils 5 % (0-8) Platelet Estimate Decreased L Platelet Morphology Normal Hypochromasia 1+ Sodium Level 144 MMOL/L (136-145) Potassium Level 3.4 MMOL/L (3.5-5.1) L Chloride Level 110 MMOL/L (98-107) H Carbon Dioxide Level 28 MMOL/L (21-32) Anion Gap 6 mmol/L (5-15) Blood Urea Nitrogen 33 mg/dL (7-18) H Creatinine 1.1 MG/DL (0.55-1.30) Estimat Glomerular Filtration Rate > 60 mL/min (>60) Glucose Level 132 MG/DL (74-106) H Calcium Level 8.4 MG/DL (8.5-10.1) L Total Bilirubin 5.2 MG/DL (0.2-1.0) H Direct Bilirubin 2.3 MG/DL (0.0-0.3) H Aspartate Amino Transf (AST/SGOT) 59 U/L (15-37) H Alanine Aminotransferase (ALT/SGPT) 40 U/L (12-78) Alkaline Phosphatase 117 U/L (46-116) H Total Protein 6.3 G/DL (6.4-8.2) L Albumin 1.6 G/DL (3.4-5.0) L Globulin 4.7 g/dL Albumin/Globulin Ratio 0.3 (1.0-2.7) L Current Medications Medications (Trade) Dose Ordered Sig/Ry Route PRN Reason Start Time Stop Time Status Last Admin Dose Admin Chlorhexidine Gluconate (Fatemeh-Hex 2%) 1 applic DAILY@2000 TOPIC 05/01/18 20:00 05/31/18 19:59 05/05/18 20:27 Lactulose (Cephulac) 20 gm THREE TIMES A DAY NG 04/30/18 13:00 05/30/18 12:59 05/05/18 18:07 Lorazepam (Ativan 2mg/ml 1ml) 2 mg Q4H PRN IV For Anxiety 04/30/18 13:30 05/07/18 13:29 05/05/18 20:36 Midazolam HCl (Versed 2mg/2ml vial) 2 mg Q2H PRN IVP Agitation 04/30/18 19:45 05/30/18 19:44 05/06/18 02:00 Pantoprazole (Protonix) 40 mg DAILY IVP 04/30/18 09:00 05/30/18 08:59 05/06/18 09:00 Pentoxifylline (TRENtal) 400 mg THREE TIMES A DAY ORAL 05/01/18 09:00 05/31/18 08:59 05/05/18 18:08 Piperacillin Sod/ Tazobactam Sod 3.375 gm/Dextrose 100 ml @ 25 mls/hr EVERY 8 HOURS IVPB 05/04/18 22:00 05/09/18 21:59 05/06/18 13:57 Rifaximin (Xifaxan) 550 mg EVERY 12 HOURS NG 05/01/18 09:00 05/08/18 08:59 05/05/18 21:27 Vancomycin HCl (Vanco rx to dose) 1 ea DAILY PRN MISC Per rx protocol 04/29/18 22:00 05/29/18 21:59 Vancomycin HCl 1 gm/Dextrose 275 ml @ 183.708 mls/hr Q12HR IVPB 05/04/18 21:00 05/09/18 20:59 05/05/18 21:27 Doris Ramos MD May 06, 2018 16:37
--- NOTE | 2018-05-06 18:27 | Diagnostic Imaging Report ---
EXAM: XR Abdomen, 1 View CLINICAL HISTORY: NGT TECHNIQUE: Frontal supine view of the abdomen/pelvis. COMPARISON: 04/30/2018. FINDINGS/IMPRESSION: NG tube in the stomach.
[2018-05-06] MEDS: Dyna-Hex 2% Top Sol 2oz TOPIC SCH (20:12)
--- NOTE | 2018-05-06 21:00 | General Progress Note ---
Assessment/Plan Assessment/Plan Assessment - Cirrhosis - portal HTN / varicies - presumed EtOH hepatitis - some recovery in labs noted - coagulopathy - ascites - s/p tap - sepsis, no SBP on paracentesis fluid - Resp failure - AMS, likely hepatic encephalopathy - hypoglycemia - guarded Recommendations - NGT - lactulose - continue TF - follow labs - broad abx - PPI - wean - check AFP - negative Subjective Allergies: Coded Allergies: No Known Allergies (Unverified , 04/29/18) Subjective Above noted d/w nurse staff intubated more awake today s/p bronch Objective Last 24 Hour Vital Signs Date Time Temp Pulse Resp B/P (MAP) Pulse Ox O2 Delivery O2 Flow Rate FiO2 05/06/18 19:15 116/62 05/06/18 19:00 103 16 108/53 (71) 100 05/06/18 18:17 Nasal Cannula 3.0 05/06/18 18:00 100 16 118/58 (78) 100 05/06/18 17:00 97 16 109/56 (73) 100 05/06/18 16:38 98 23 30 05/06/18 16:09 30 05/06/18 16:00 98.7 95 22 106/59 (75) 100 98.7 05/06/18 16:00 99 05/06/18 16:00 Mechanical Ventilator Mechanical Ventilator Mechanical Ventilator 05/06/18 15:14 102 25 30 05/06/18 15:03 98.9 05/06/18 15:00 93 16 124/60 (81) 100 05/06/18 14:33 98.9 05/06/18 14:00 96 20 126/66 (86) 100 05/06/18 13:00 98.9 105 22 119/61 (80) 100 98.9 05/06/18 12:59 103 26 30 05/06/18 12:30 30 05/06/18 12:00 99.1 9 12 130/61 (84) 100 99.1 05/06/18 12:00 35 05/06/18 12:00 Mechanical Ventilator 05/06/18 11:00 110 17 127/62 (83) 100 05/06/18 10:32 129 27 30 05/06/18 10:03 101 05/06/18 10:00 106 17 102/70 (81) 100 05/06/18 09:00 100 19 114/56 (75) 100 05/06/18 08:56 101 25 30 05/06/18 08:00 35 05/06/18 08:00 101 05/06/18 08:00 97.8 99 19 114/56 (75) 100 97.8 05/06/18 08:00 Mechanical Ventilator 05/06/18 07:00 92 19 105/59 (74) 100 05/06/18 06:55 102 27 30 05/06/18 06:00 92 23 120/62 (81) 98 05/06/18 05:17 91 24 30 05/06/18 05:00 100 23 130/62 (84) 98 05/06/18 04:00 101 05/06/18 04:00 Mechanical Ventilator 05/06/18 04:00 35 05/06/18 04:00 98.0 101 23 120/62 (81) 98 98.0 05/06/18 03:18 110 28 30 05/06/18 03:00 108 23 126/62 (83) 98 05/06/18 02:00 111 23 117/52 (73) 98 05/06/18 01:00 110 23 130/62 (84) 98 05/06/18 00:45 98 19 30 05/06/18 00:00 104 05/06/18 00:00 98.2 104 24 118/59 (78) 97 98.2 05/06/18 00:00 35 05/06/18 00:00 Mechanical Ventilator 05/05/18 23:00 107 24 119/53 (75) 97 05/05/18 22:52 107 24 30 05/05/18 22:00 106 21 109/52 (71) 100 05/05/18 21:10 108 25 30 05/05/18 21:00 109 21 119/51 (73) 100 Intake and Output 05/05/18 05/06/18 19:00 07:00 Intake Total 1134.916 ml 310 ml Output Total 1195 ml 780 ml Balance -60.084 ml -470 ml Free Water 60 ml 30 ml IV Total 534.916 ml 100 ml Tube Feeding 540 ml 180 ml Output Urine Total 895 ml 780 ml Stool Total 300 ml # Bowel Movements 50 Laboratory Tests 05/06/18 08:17: Vancomycin Level Trough 17.0H 05/06/18 14:41: White Blood Count 12.3H, Red Blood Count 2.69L, Hemoglobin 8.5L, Hematocrit 25.4L, Mean Corpuscular Volume 95, Mean Corpuscular Hemoglobin 31.5H, Mean Corpuscular Hemoglobin Concent 33.3, Red Cell Distribution Width 14.1, Platelet Count 44L, Mean Platelet Volume 6.7, Neutrophils (%) (Auto) , Lymphocytes (%) ( Auto) , Monocytes (%) (Auto) , Eosinophils (%) (Auto) , Basophils (%) (Auto) , Differential Total Cells Counted 100, Neutrophils % (Manual) 74, Lymphocytes % ( Manual) 9L, Monocytes % (Manual) 9, Eosinophils % (Manual) 2, Basophils % ( Manual) 0, Metamyelocytes % 1H, Band Neutrophils 5, Platelet Estimate DecreasedL , Platelet Morphology Normal, Hypochromasia 1+, Sodium Level 144, Potassium Level 3.4L, Chloride Level 110H, Carbon Dioxide Level 28, Anion Gap 6, Blood Urea Nitrogen 33H, Creatinine 1.1, Estimat Glomerular Filtration Rate > 60, Glucose Level 132H, Calcium Level 8.4L, Total Bilirubin 5.2H, Direct Bilirubin 2.3H, Aspartate Amino Transf (AST/SGOT) 59H, Alanine Aminotransferase (ALT/SGPT ) 40, Alkaline Phosphatase 117H, Total Protein 6.3L, Albumin 1.6L, Globulin 4.7 , Albumin/Globulin Ratio 0.3L Height (Feet): 5 Height (Inches): 9.00 Weight (Pounds): 309 Objective WDWN WM NCAT supple CTA RRR Soft / Obese trace edema sedated Pierre Suggs MD May 06, 2018 21:00
--- NOTE | 2018-05-06 22:30 | Procedure Note ---
DATE OF PROCEDURE: 05/06/2018 BRONCHOSCOPY PROCEDURE REPORT INDICATION: Respiratory failure. PREOPERATIVE DIAGNOSIS: Pneumonia. POSTOPERATIVE DIAGNOSIS/FINDINGS: 1. Endotracheal tube 3 cm above pamela. 2. Mild to moderate endobronchial mucoid secretions. 3. No endobronchial lesions or obstruction. 4. Normal tracheobronchial anatomy up until the subsegmental bronchi. ANESTHESIA: Moderate sedation in the ICU with 4 mg of Versed and 25 mcg of fentanyl. COMPLICATIONS: None. ESTIMATED BLOOD LOSS: None. SPECIMENS: Pooled BAL specimen sent for analysis. DISPOSITION: ICU room. POSTOPERATIVE CONDITION: Fair. DESCRIPTION OF PROCEDURE: After two-physician emergency consent was obtained, the patient was seen and identified as Jon Avendaño in his ICU room. A time-out was undertaken. Moderate sedation was then obtained via fentanyl and Versed. Once adequate sedation was obtained and after consent was verified, the bronchoscope was passed through the endotracheal tube into the trachea. Inspection of the airways was then done. There was ET tube, was 2 cm above pamela. There was normal tracheal and endobronchial anatomy to the subsegmental bronchi. There were no excessive endobronchial secretions. There were only mild mucoid secretions. There were no endobronchial lesions. There was no bleeding or friability. A bilateral BAL was done and pooled and sent off to the laboratory. The bronchoscope was then withdrawn from the endotracheal tube. Throughout the procedure, the patient's heart rate, respiratory rate, blood pressure, and pulse oximetry as well as ventilatory settings were monitored. The patient tolerated the procedure without any difficulty. At the end of the procedure, he remained in his ICU room. Mario Rasmussen M.D. DR: GÉNESIS JOB#: [id number] CC:
[2018-05-06] MEDS: LORazepam Inj 2mg/ml 1ml IV PRN (22:48)
[2018-05-07] VITALS (18 sets, daily range): BP systolic 104–158; BP diastolic 63–90
[2018-05-07] MEDS: LORazepam Inj 2mg/ml 1ml IV PRN (03:18)
[2018-05-07 06:04] LABS: HEMATOCRIT 27.3 % (42.0-52.0); HEMOGLOBIN 9.2 G/DL (14.2-18.0); MEAN CORPUSCULAR VOLUME 95 FL (80-99); PLATELET COUNT 45 K/UL (150-450); RED BLOOD COUNT 2.87 M/UL (4.70-6.10); RED CELL DISTRIBUTION WIDTH 14.4 % (11.6-14.8); WHITE BLOOD COUNT 12.8 K/UL (4.8-10.8)
[2018-05-07 06:10] LABS: INR 2.1 (0.9-1.1)
[2018-05-07 06:21] LABS: ALANINE AMINOTRANSFERASE 39 U/L (12-78); ALBUMIN 1.7 G/DL (3.4-5.0); ALBUMIN/GLOBULIN RATIO 0.4 (1.0-2.7); ALKALINE PHOSPHATASE 111 U/L (46-116); ANION GAP 6 mmol/L (5-15); ASPARTATE AMINO TRANSFERASE 55 U/L (15-37); BLOOD UREA NITROGEN 30 mg/dL (7-18); CALCIUM 8.6 MG/DL (8.5-10.1); CARBON DIOXIDE 28 MMOL/L (21-32); CHLORIDE 110 MMOL/L (98-107); CREATININE 1.1 MG/DL (0.55-1.30); POTASSIUM 3.4 MMOL/L (3.5-5.1); SODIUM 144 MMOL/L (136-145)
[2018-05-07 07:00] LABS: BILIRUBIN,DIRECT 2.6 MG/DL (0.0-0.3)
--- NOTE | 2018-05-07 07:32 | General Progress Note ---
Assessment/Plan Assessment/Plan Assessment - Cirrhosis - portal HTN / varicies - presumed EtOH hepatitis - some recovery in labs noted - coagulopathy - ascites - s/p tap - sepsis, no SBP on paracentesis fluid - Resp failure - AMS, likely hepatic encephalopathy - hypoglycemia - guarded Recommendations - NGT - lactulose - continue TF - follow labs - broad abx - PPI - wean - check AFP - negative Subjective ROS Limited/Unobtainable: No Allergies: Coded Allergies: No Known Allergies (Unverified , 04/29/18) Objective Last 24 Hour Vital Signs Date Time Temp Pulse Resp B/P (MAP) Pulse Ox O2 Delivery O2 Flow Rate FiO2 05/07/18 06:00 101 21 118/64 (82) 100 05/07/18 05:20 97 35 100 Facial 30 05/07/18 05:00 97 16 139/86 (103) 100 05/07/18 04:00 Mechanical Ventilator 3.0 Bi-pap Mechanical Ventilator Nasal Cannula 05/07/18 04:00 98.0 100 12 145/74 (97) 100 98.0 05/07/18 04:00 30 05/07/18 04:00 100 05/07/18 03:10 106 28 100 Facial 30 05/07/18 03:00 99 12 121/71 (88) 100 05/07/18 02:00 100 14 129/90 (103) 100 05/07/18 01:02 99 30 100 Facial 30 05/07/18 01:00 100 15 158/70 (99) 100 05/07/18 00:00 30 05/07/18 00:00 98 05/07/18 00:00 Mechanical Ventilator 3.0 Bi-pap Mechanical Ventilator Nasal Cannula 05/07/18 00:00 97.4 99 17 115/76 (89) 100 97.4 05/06/18 23:00 98 14 124/68 (86) 100 05/06/18 23:00 30 05/06/18 22:57 96 26 100 Facial 30 05/06/18 22:00 100 15 154/78 (103) 100 05/06/18 21:00 104 16 160/62 (94) 100 05/06/18 20:00 Mechanical Ventilator 3.0 Mechanical Ventilator Mechanical Ventilator Nasal Cannula 05/06/18 20:00 3.0 05/06/18 20:00 97.6 104 16 165/57 (93) 99 97.6 05/06/18 20:00 105 05/06/18 19:15 116/62 05/06/18 19:00 103 16 108/53 (71) 100 05/06/18 19:00 100 Nasal Cannula 3.0 32 05/06/18 19:00 Nasal Cannula 3.0 32 05/06/18 18:17 Nasal Cannula 3.0 05/06/18 18:00 100 16 118/58 (78) 100 05/06/18 17:00 97 16 109/56 (73) 100 05/06/18 16:38 98 23 30 05/06/18 16:09 30 05/06/18 16:00 98.7 95 22 106/59 (75) 100 98.7 05/06/18 16:00 99 05/06/18 16:00 Mechanical Ventilator Mechanical Ventilator Mechanical Ventilator 05/06/18 15:14 102 25 30 05/06/18 15:03 98.9 05/06/18 15:00 93 16 124/60 (81) 100 05/06/18 14:33 98.9 05/06/18 14:00 96 20 126/66 (86) 100 05/06/18 13:00 98.9 105 22 119/61 (80) 100 98.9 05/06/18 12:59 103 26 30 05/06/18 12:30 30 05/06/18 12:00 99.1 9 12 130/61 (84) 100 99.1 05/06/18 12:00 35 05/06/18 12:00 Mechanical Ventilator 05/06/18 11:00 110 17 127/62 (83) 100 05/06/18 10:32 129 27 30 05/06/18 10:03 101 05/06/18 10:00 106 17 102/70 (81) 100 05/06/18 09:00 100 19 114/56 (75) 100 05/06/18 08:56 101 25 30 05/06/18 08:00 35 05/06/18 08:00 101 05/06/18 08:00 97.8 99 19 114/56 (75) 100 97.8 05/06/18 08:00 Mechanical Ventilator Intake and Output 05/06/18 05/07/18 19:00 07:00 Intake Total 225 ml 675.000 ml Output Total 900 ml 970 ml Balance -675 ml -295.000 ml IV Total 225 ml 675.000 ml Tube Feeding 0 ml Output Urine Total 800 ml 920 ml Stool Total 100 ml 50 ml # Bowel Movements 1 Laboratory Tests 05/06/18 08:17: Vancomycin Level Trough 17.0H 05/06/18 14:41: White Blood Count 12.3H, Red Blood Count 2.69L, Hemoglobin 8.5L, Hematocrit 25.4L, Mean Corpuscular Volume 95, Mean Corpuscular Hemoglobin 31.5H, Mean Corpuscular Hemoglobin Concent 33.3, Red Cell Distribution Width 14.1, Platelet Count 44L, Mean Platelet Volume 6.7, Neutrophils (%) (Auto) , Lymphocytes (%) ( Auto) , Monocytes (%) (Auto) , Eosinophils (%) (Auto) , Basophils (%) (Auto) , Differential Total Cells Counted 100, Neutrophils % (Manual) 74, Lymphocytes % ( Manual) 9L, Monocytes % (Manual) 9, Eosinophils % (Manual) 2, Basophils % ( Manual) 0, Metamyelocytes % 1H, Band Neutrophils 5, Platelet Estimate DecreasedL , Platelet Morphology Normal, Hypochromasia 1+, Sodium Level 144, Potassium Level 3.4L, Chloride Level 110H, Carbon Dioxide Level 28, Anion Gap 6, Blood Urea Nitrogen 33H, Creatinine 1.1, Estimat Glomerular Filtration Rate > 60, Glucose Level 132H, Calcium Level 8.4L, Total Bilirubin 5.2H, Direct Bilirubin 2.3H, Aspartate Amino Transf (AST/SGOT) 59H, Alanine Aminotransferase (ALT/SGPT ) 40, Alkaline Phosphatase 117H, Total Protein 6.3L, Albumin 1.6L, Globulin 4.7 , Albumin/Globulin Ratio 0.3L 05/07/18 04:20: White Blood Count 12.8H, Red Blood Count 2.87L, Hemoglobin 9.2L, Hematocrit 27.3L, Mean Corpuscular Volume 95, Mean Corpuscular Hemoglobin 32.1H, Mean Corpuscular Hemoglobin Concent 33.8, Red Cell Distribution Width 14.4, Platelet Count 45L, Mean Platelet Volume 8.5, Neutrophils (%) (Auto) , Lymphocytes (%) ( Auto) , Monocytes (%) (Auto) , Eosinophils (%) (Auto) , Basophils (%) (Auto) , Neutrophils % (Manual) [Pending], Lymphocytes % (Manual) [Pending], Platelet Estimate [Pending], Platelet Morphology [Pending], Sodium Level 144, Potassium Level 3.4L, Chloride Level 110H, Carbon Dioxide Level 28, Anion Gap 6, Blood Urea Nitrogen 30H, Creatinine 1.1, Estimat Glomerular Filtration Rate > 60, Glucose Level 119H, Calcium Level 8.6, Total Bilirubin 6.0H, Direct Bilirubin 2.6H, Aspartate Amino Transf (AST/SGOT) 55H, Alanine Aminotransferase (ALT/SGPT ) 39, Alkaline Phosphatase 111, Total Protein 6.4, Albumin 1.7L, Globulin 4.7, Albumin/Globulin Ratio 0.4L, Prothrombin Time 21.6H, Prothromb Time International Ratio 2.1H, Ammonia 26 Height (Feet): 5 Height (Inches): 9.00 Weight (Pounds): 308 General Appearance: lethargic EENT: normal ENT inspection Neck: supple Cardiovascular: normal rate Respiratory/Chest: decreased breath sounds Abdomen: soft, hypoactive bowel sounds, distended Extremities: non-tender Nj Kumari MD May 07, 2018 07:32
[2018-05-07] MEDS: Lactulose 20gm/30ml UDC NG SCH ×2 (08:36→13:02)
[2018-05-07] MEDS: Vancomycin 1gm/D5W 275ml IVPB SCH ×2 (08:37)
[2018-05-07] MEDS: Pantoprazole Inj IVP SCH (09:28)
--- NOTE | 2018-05-07 10:14 | Diagnostic Imaging Report ---
EXAM: XR Chest, 1 View CLINICAL HISTORY: LINE TECHNIQUE: Frontal view of the chest. COMPARISON: Chest x-ray dated 05/03/18 FINDINGS: Lungs: Low lung volumes with diffuse patchy airspace and interstitial opacities, not significantly changed. Pleural space: Unremarkable. The costophrenic angles are sharp. No visible pneumothorax. Heart: Cardiac silhouette is magnified by portable film technique. Mediastinum: Unremarkable. Bones/joints: Unremarkable. Tubes, lines and devices: An NG tube extends below the diaphragm but its tip is not definitively identified. EKG leads overlie the thorax. Interval removal of the endotracheal tube. IMPRESSION: 1. An NG tube extends below the diaphragm but its tip is not definitively identified. 2. Low lung volumes with diffuse patchy airspace and interstitial opacities, not significantly changed.
--- NOTE | 2018-05-07 10:31 | General Progress Note ---
Assessment/Plan Assessment/Plan ASSESSMENT AND RECS: 1. Thrombocytopenia, potentially secondary to septic shock, severe sepsis, end- organ damage, closely monitor, platelet count downtrending peripheral smear has been reviewed. The patient continues to have lactic acidosis, improved at this time and, in addition, imaging reviewed. --> The patient noted to be with cirrhosis with portal hypertension, expected coagulopathy. --> hepatitis and hiv reviewed and is negative --> report and give Vit K and ffp and inr is elevated --> DC PROTONIX, other drugs also reviewed 2. Coagulopathy with portal hypertension, cirrhosis of liver, large volume ascites, requires paracentesis and requires vitamin K and --> vit K prn basis --> on abx, vanc/zosyn --> as per ID, appreciate their recs 3. Leukocytosis, likely secondary to underlying infection, potentially related to underlying sepsis versus other causes such as SBP; but again has been seen by GI team --> s/p paracentesis and prn in the future 4. AGNIESZKA, on IV fluids as needed 5. Acute encephalopathy. 6. Septic shock. REQUIRES ICU CARE TODAY, potential downgrade Subjective HEENT: Denies: no symptoms, eye pain, blurred vision, tearing, double vision, ear pain, ear discharge, nose pain, nose congestion, throat pain, throat swelling, mouth pain, mouth swelling, other Cardiovascular: Denies: no symptoms, chest pain, edema, irregular heart rate, lightheadedness, palpitations, syncope, other Respiratory: Denies: no symptoms, cough, orthopnea, shortness of breath, SOB with excertion, SOB at rest, sputum, stridor, wheezing, other Gastrointestinal/Abdominal: Denies: no symptoms, abdomen distended, abdominal pain, black stools, tarry stools, blood in stool, constipated, diarrhea, difficulty swallowing, nausea, poor appetite, poor fluid intake, rectal bleeding , vomiting, other Genitourinary: Denies: no symptoms, burning, discharge, frequency, flank pain, hematuria, incontinence, pain, urgency, other Endocrine: Denies: no symptoms, excessive sweating, flushing, intolerance to cold, intolerance to heat, increased hunger, increased thirst, increased urine, unexplained weight gain, unexplained weight loss, other Hematologic/Lymphatic: Denies: no symptoms, anemia, easy bleeding, easy bruising, other Allergies: Coded Allergies: No Known Allergies (Unverified , 04/29/18) Subjective potentially to be transferred out of the unit, better today Objective Last 24 Hour Vital Signs Date Time Temp Pulse Resp B/P (MAP) Pulse Ox O2 Delivery O2 Flow Rate FiO2 05/07/18 09:00 105 19 122/66 (84) 100 05/07/18 08:37 118/63 05/07/18 08:00 3.0 05/07/18 08:00 98.4 106 23 122/84 (97) 100 98.4 05/07/18 08:00 Nasal Cannula 3.0 Nasal Cannula 3.0 Nasal Cannula 3.0 Nasal Cannula 3.0 05/07/18 07:33 99 Nasal Cannula 3.0 32 05/07/18 07:33 Nasal Cannula 3.0 32 05/07/18 07:00 99 19 135/63 (87) 100 05/07/18 06:00 101 21 118/64 (82) 100 05/07/18 05:20 97 35 100 Facial 30 05/07/18 05:00 97 16 139/86 (103) 100 05/07/18 04:00 Mechanical Ventilator 3.0 Bi-pap Mechanical Ventilator Nasal Cannula 05/07/18 04:00 98.0 100 12 145/74 (97) 100 98.0 05/07/18 04:00 30 05/07/18 04:00 100 05/07/18 03:10 106 28 100 Facial 30 05/07/18 03:00 99 12 121/71 (88) 100 05/07/18 02:00 100 14 129/90 (103) 100 05/07/18 01:02 99 30 100 Facial 30 05/07/18 01:00 100 15 158/70 (99) 100 05/07/18 00:00 30 05/07/18 00:00 98 05/07/18 00:00 Mechanical Ventilator 3.0 Bi-pap Mechanical Ventilator Nasal Cannula 05/07/18 00:00 97.4 99 17 115/76 (89) 100 97.4 05/06/18 23:00 98 14 124/68 (86) 100 05/06/18 23:00 30 05/06/18 22:57 96 26 100 Facial 30 05/06/18 22:00 100 15 154/78 (103) 100 05/06/18 21:00 104 16 160/62 (94) 100 05/06/18 20:00 Mechanical Ventilator 3.0 Mechanical Ventilator Mechanical Ventilator Nasal Cannula 05/06/18 20:00 3.0 05/06/18 20:00 97.6 104 16 165/57 (93) 99 97.6 05/06/18 20:00 105 05/06/18 19:15 116/62 05/06/18 19:00 103 16 108/53 (71) 100 05/06/18 19:00 100 Nasal Cannula 3.0 32 05/06/18 19:00 Nasal Cannula 3.0 32 05/06/18 18:17 Nasal Cannula 3.0 05/06/18 18:00 100 16 118/58 (78) 100 05/06/18 17:00 97 16 109/56 (73) 100 05/06/18 16:38 98 23 30 05/06/18 16:09 30 05/06/18 16:00 98.7 95 22 106/59 (75) 100 98.7 05/06/18 16:00 99 05/06/18 16:00 Mechanical Ventilator Mechanical Ventilator Mechanical Ventilator 05/06/18 15:14 102 25 30 05/06/18 15:03 98.9 05/06/18 15:00 93 16 124/60 (81) 100 05/06/18 14:33 98.9 05/06/18 14:00 96 20 126/66 (86) 100 05/06/18 13:00 98.9 105 22 119/61 (80) 100 98.9 05/06/18 12:59 103 26 30 05/06/18 12:30 30 05/06/18 12:00 99.1 9 12 130/61 (84) 100 99.1 05/06/18 12:00 35 05/06/18 12:00 Mechanical Ventilator 05/06/18 11:00 110 17 127/62 (83) 100 05/06/18 10:32 129 27 30 Intake and Output 05/06/18 05/07/18 19:00 07:00 Intake Total 225 ml 675.000 ml Output Total 900 ml 970 ml Balance -675 ml -295.000 ml IV Total 225 ml 675.000 ml Tube Feeding 0 ml Output Urine Total 800 ml 920 ml Stool Total 100 ml 50 ml # Bowel Movements 1 Laboratory Tests 05/06/18 14:41: White Blood Count 12.3H, Red Blood Count 2.69L, Hemoglobin 8.5L, Hematocrit 25.4L, Mean Corpuscular Volume 95, Mean Corpuscular Hemoglobin 31.5H, Mean Corpuscular Hemoglobin Concent 33.3, Red Cell Distribution Width 14.1, Platelet Count 44L, Mean Platelet Volume 6.7, Neutrophils (%) (Auto) , Lymphocytes (%) ( Auto) , Monocytes (%) (Auto) , Eosinophils (%) (Auto) , Basophils (%) (Auto) , Differential Total Cells Counted 100, Neutrophils % (Manual) 74, Lymphocytes % ( Manual) 9L, Monocytes % (Manual) 9, Eosinophils % (Manual) 2, Basophils % ( Manual) 0, Metamyelocytes % 1H, Band Neutrophils 5, Platelet Estimate DecreasedL , Platelet Morphology Normal, Hypochromasia 1+, Sodium Level 144, Potassium Level 3.4L, Chloride Level 110H, Carbon Dioxide Level 28, Anion Gap 6, Blood Urea Nitrogen 33H, Creatinine 1.1, Estimat Glomerular Filtration Rate > 60, Glucose Level 132H, Calcium Level 8.4L, Total Bilirubin 5.2H, Direct Bilirubin 2.3H, Aspartate Amino Transf (AST/SGOT) 59H, Alanine Aminotransferase (ALT/SGPT ) 40, Alkaline Phosphatase 117H, Total Protein 6.3L, Albumin 1.6L, Globulin 4.7 , Albumin/Globulin Ratio 0.3L 05/07/18 04:20: White Blood Count 12.8H, Red Blood Count 2.87L, Hemoglobin 9.2L, Hematocrit 27.3L, Mean Corpuscular Volume 95, Mean Corpuscular Hemoglobin 32.1H, Mean Corpuscular Hemoglobin Concent 33.8, Red Cell Distribution Width 14.4, Platelet Count 45L, Mean Platelet Volume 8.5, Neutrophils (%) (Auto) , Lymphocytes (%) ( Auto) , Monocytes (%) (Auto) , Eosinophils (%) (Auto) , Basophils (%) (Auto) , Differential Total Cells Counted 100, Neutrophils % (Manual) 88H, Lymphocytes % (Manual) 5L, Monocytes % (Manual) 5, Eosinophils % (Manual) 1, Basophils % ( Manual) 0, Band Neutrophils 1, Platelet Estimate DecreasedL, Platelet Morphology Normal, Hypochromasia 1+, Sodium Level 144, Potassium Level 3.4L, Chloride Level 110H, Carbon Dioxide Level 28, Anion Gap 6, Blood Urea Nitrogen 30H, Creatinine 1.1, Estimat Glomerular Filtration Rate > 60, Glucose Level 119H , Calcium Level 8.6, Total Bilirubin 6.0H, Direct Bilirubin 2.6H, Aspartate Amino Transf (AST/SGOT) 55H, Alanine Aminotransferase (ALT/SGPT) 39, Alkaline Phosphatase 111, Total Protein 6.4, Albumin 1.7L, Globulin 4.7, Albumin/ Globulin Ratio 0.4L, Prothrombin Time 21.6H, Prothromb Time International Ratio 2.1H, Ammonia 26 Height (Feet): 5 Height (Inches): 9.00 Weight (Pounds): 308 General Appearance: no apparent distress EENT: TMs normal Neck: non-tender Cardiovascular: normal rate Respiratory/Chest: normal breath sounds Abdomen: abnormal bowel sounds Edema: 1+ Leg (L), 1+ Leg (R) Neurologic: alert Skin: warm/dry Eric Irizarry MD May 07, 2018 10:31
--- NOTE | 2018-05-07 12:16 | Pulmonolgy Critical Care Note ---
Critical Care - Asmt/Plan Problems: (1) Gram negative sepsis Assessment & Plan: [place] (2) Acute kidney failure (3) Hyperbilirubinemia (4) Shock, septic (5) Cellulitis (6) Cirrhosis of liver (7) Lactic acid acidosis (8) Acute encephalopathy (9) Altered mental state (10) Acute respiratory failure without hypercapnia (11) Coagulopathy (12) Thrombocytopenia Respiratory: monitor respiratory rate, adjust FIO2 - PRN O2 Cardiac: continue to monitor HR/BP Renal: check electrolytes, other - SLIV Infectious Disease: continue antibiotics - Vanco and Zosyn per ID Gastrointestinal: other - PPI, GI recs, rifaxamin, lactulose, start diet, aspiration precautions Hematologic: monitor H/H, other - monitor platelets, F/U GI recs Neurologic: keep patient comfortable Prophylaxis: Protonix, SCDs Disposition: transfer to - tele Time Spent (Minutes): 40 Notes Reviewed: clinical research physician, renal, ID, GI, 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 onc Discussed with: nurses, consultants Critical Care - Objective Last 24 Hour Vital Signs Date Time Temp Pulse Resp B/P (MAP) Pulse Ox O2 Delivery O2 Flow Rate FiO2 05/07/18 11:00 107 19 104/70 (81) 100 05/07/18 10:00 102 19 113/73 (86) 100 05/07/18 09:00 105 19 122/66 (84) 100 05/07/18 08:37 118/63 05/07/18 08:00 3.0 05/07/18 08:00 98.4 106 23 122/84 (97) 100 98.4 05/07/18 08:00 Nasal Cannula 3.0 Nasal Cannula 3.0 Nasal Cannula 3.0 Nasal Cannula 3.0 05/07/18 08:00 97 05/07/18 07:33 99 Nasal Cannula 3.0 32 05/07/18 07:33 Nasal Cannula 3.0 32 05/07/18 07:00 99 19 135/63 (87) 100 05/07/18 06:00 101 21 118/64 (82) 100 05/07/18 05:20 97 35 100 Facial 30 05/07/18 05:00 97 16 139/86 (103) 100 05/07/18 04:00 Mechanical Ventilator 3.0 Bi-pap Mechanical Ventilator Nasal Cannula 05/07/18 04:00 98.0 100 12 145/74 (97) 100 98.0 05/07/18 04:00 30 05/07/18 04:00 100 05/07/18 03:10 106 28 100 Facial 30 05/07/18 03:00 99 12 121/71 (88) 100 05/07/18 02:00 100 14 129/90 (103) 100 05/07/18 01:02 99 30 100 Facial 30 05/07/18 01:00 100 15 158/70 (99) 100 05/07/18 00:00 30 05/07/18 00:00 98 05/07/18 00:00 Mechanical Ventilator 3.0 Bi-pap Mechanical Ventilator Nasal Cannula 05/07/18 00:00 97.4 99 17 115/76 (89) 100 97.4 05/06/18 23:00 98 14 124/68 (86) 100 05/06/18 23:00 30 05/06/18 22:57 96 26 100 Facial 30 05/06/18 22:00 100 15 154/78 (103) 100 05/06/18 21:00 104 16 160/62 (94) 100 05/06/18 20:00 Mechanical Ventilator 3.0 Mechanical Ventilator Mechanical Ventilator Nasal Cannula 05/06/18 20:00 3.0 05/06/18 20:00 97.6 104 16 165/57 (93) 99 97.6 05/06/18 20:00 105 05/06/18 19:15 116/62 05/06/18 19:00 103 16 108/53 (71) 100 05/06/18 19:00 100 Nasal Cannula 3.0 32 05/06/18 19:00 Nasal Cannula 3.0 32 05/06/18 18:17 Nasal Cannula 3.0 05/06/18 18:00 100 16 118/58 (78) 100 05/06/18 17:00 97 16 109/56 (73) 100 05/06/18 16:38 98 23 30 05/06/18 16:09 30 05/06/18 16:00 98.7 95 22 106/59 (75) 100 98.7 05/06/18 16:00 99 05/06/18 16:00 Mechanical Ventilator Mechanical Ventilator Mechanical Ventilator 05/06/18 15:14 102 25 30 05/06/18 15:03 98.9 05/06/18 15:00 93 16 124/60 (81) 100 05/06/18 14:33 98.9 05/06/18 14:00 96 20 126/66 (86) 100 05/06/18 13:00 98.9 105 22 119/61 (80) 100 98.9 05/06/18 12:59 103 26 30 05/06/18 12:30 30 Status: other - obese awake Condition: improving HEENT: atraumatic, normocephalic Lungs: rhonchi Heart: HR/BP stable Abdomen: soft, non-tender, active bowel sounds Extremities: other Micro: Microbiology Date/Time Source Procedure Growth Status 05/06/18 15:00 Bronchial Washings Not Specified Gram Stain - Final Resulted 05/06/18 15:00 Bronchial Washings Not Specified Bronchial Aspirate Culture - Preliminary NO GROWTH Resulted Accucheck: 54 Blood Sugars: BS controlled Critical Care - Subjective ROS Limited/Unobtainable: Yes ICU Day: 9 Intubation Day: extubated overnight Interval Events: BiPAP O/N, now stable on 3L Passed RN bedside swallow Pulled out CVC Condition: improving IV Access: peripheral EKG Rhythm: Sinus Tachycardia FI02: 32 Vent Support Breath Rate: 16 Vent Support Mode: BiLevel Vent Tidal Volume: 550 Sputum Amount: None PEEP: 5.0 PIP: 14 Tube Feeding Amount: 0 I&O: Intake and Output 05/06/18 05/07/18 19:00 07:00 Intake Total 225 ml 675.000 ml Output Total 900 ml 970 ml Balance -675 ml -295.000 ml IV Total 225 ml 675.000 ml Tube Feeding 0 ml Output Urine Total 800 ml 920 ml Stool Total 100 ml 50 ml # Bowel Movements 1 Subjective: Better, + cough/IMPORT EXPORT COORDINATOR, + SOB, no F/C, no CP ET-Tube: 8.0 ET Position: 24 Labs: Laboratory Tests Test 05/06/18 14:41 05/07/18 04:20 White Blood Count 12.3 K/UL (4.8-10.8) H 12.8 K/UL (4.8-10.8) H Red Blood Count 2.69 M/UL (4.70-6.10) L 2.87 M/UL (4.70-6.10) L Hemoglobin 8.5 G/DL (14.2-18.0) L 9.2 G/DL (14.2-18.0) L Hematocrit 25.4 % (42.0-52.0) L 27.3 % (42.0-52.0) L Mean Corpuscular Volume 95 FL (80-99) 95 FL (80-99) Mean Corpuscular Hemoglobin 31.5 PG (27.0-31.0) H 32.1 PG (27.0-31.0) H Mean Corpuscular Hemoglobin Concent 33.3 G/DL (32.0-36.0) 33.8 G/DL (32.0-36.0) Red Cell Distribution Width 14.1 % (11.6-14.8) 14.4 % (11.6-14.8) Platelet Count 44 K/UL (150-450) L 45 K/UL (150-450) L Mean Platelet Volume 6.7 FL (6.5-10.1) 8.5 FL (6.5-10.1) Neutrophils (%) (Auto) % (45.0-75.0) % (45.0-75.0) Lymphocytes (%) (Auto) % (20.0-45.0) % (20.0-45.0) Monocytes (%) (Auto) % (1.0-10.0) % (1.0-10.0) Eosinophils (%) (Auto) % (0.0-3.0) % (0.0-3.0) Basophils (%) (Auto) % (0.0-2.0) % (0.0-2.0) Differential Total Cells Counted 100 100 Neutrophils % (Manual) 74 % (45-75) 88 % (45-75) H Lymphocytes % (Manual) 9 % (20-45) L 5 % (20-45) L Monocytes % (Manual) 9 % (1-10) 5 % (1-10) Eosinophils % (Manual) 2 % (0-3) 1 % (0-3) Basophils % (Manual) 0 % (0-2) 0 % (0-2) Metamyelocytes % 1 % (0-0) H Band Neutrophils 5 % (0-8) 1 % (0-8) Platelet Estimate Decreased L Decreased L Platelet Morphology Normal Normal Hypochromasia 1+ 1+ Sodium Level 144 MMOL/L (136-145) 144 MMOL/L (136-145) Potassium Level 3.4 MMOL/L (3.5-5.1) L 3.4 MMOL/L (3.5-5.1) L Chloride Level 110 MMOL/L (98-107) H 110 MMOL/L (98-107) H Carbon Dioxide Level 28 MMOL/L (21-32) 28 MMOL/L (21-32) Anion Gap 6 mmol/L (5-15) 6 mmol/L (5-15) Blood Urea Nitrogen 33 mg/dL (7-18) H 30 mg/dL (7-18) H Creatinine 1.1 MG/DL (0.55-1.30) 1.1 MG/DL (0.55-1.30) Estimat Glomerular Filtration Rate > 60 mL/min (>60) > 60 mL/min (>60) Glucose Level 132 MG/DL (74-106) H 119 MG/DL (74-106) H Calcium Level 8.4 MG/DL (8.5-10.1) L 8.6 MG/DL (8.5-10.1) Total Bilirubin 5.2 MG/DL (0.2-1.0) H 6.0 MG/DL (0.2-1.0) H Direct Bilirubin 2.3 MG/DL (0.0-0.3) H 2.6 MG/DL (0.0-0.3) H Aspartate Amino Transf (AST/SGOT) 59 U/L (15-37) H 55 U/L (15-37) H Alanine Aminotransferase (ALT/SGPT) 40 U/L (12-78) 39 U/L (12-78) Alkaline Phosphatase 117 U/L (46-116) H 111 U/L (46-116) Total Protein 6.3 G/DL (6.4-8.2) L 6.4 G/DL (6.4-8.2) Albumin 1.6 G/DL (3.4-5.0) L 1.7 G/DL (3.4-5.0) L Globulin 4.7 g/dL 4.7 g/dL Albumin/Globulin Ratio 0.3 (1.0-2.7) L 0.4 (1.0-2.7) L Prothrombin Time 21.6 SEC (9.30-11.50) H Prothromb Time International Ratio 2.1 (0.9-1.1) H Ammonia 26 umol/L (11-32) Mario Rasmussen MD May 07, 2018 12:16
[2018-05-07] MEDS ORDERED: NS 275ml ONE (16:23)
[2018-05-07] MEDS ORDERED: Tubing IV Secondary IV ONE (16:23)
--- NOTE | 2018-05-07 16:33 | General Progress Note ---
Assessment/Plan Assessment/Plan Septic Shock due to Providencia bacteremia, continue vancomycin, Zosyn and likely transition to oral antibiotics soon. ID following. Acute hypoxic respiratory failure, extubated and now on nasal cannula. Decompensated cirrhosis, s/p 6 liter paracentesis, continue rifaximin and lactulose. GI following AGNIESZKA due to ATN from sepsis and hypotension, resolving. Acute metabolic encephalopathy, resolving, continue to treat underlying acute medical issues. Thrombocytopenia, multifactorial from ESLD, bone marrow suppression from septic shock. No evidence of bleeding at this time. Continue to monitor CBC. Hematology following. DVT Prophylaxis Venodynes Subjective Date patient seen: May 07, 2018 Time patient seen: 16:27 ROS Limited/Unobtainable: Yes Constitutional: Reports: fever Cardiovascular: Reports: chest pain Respiratory: Reports: cough Gastrointestinal/Abdominal: Reports: abdominal pain Allergies: Coded Allergies: No Known Allergies (Unverified , 04/29/18) Subjective Medical followup for multiple medical conditions including septic shock, acute hypoxic respiratory failure, decompensated cirrhosis, AGNIESZKA. He was successfully extubated last night and will be transferred out of the ICU. He is alert but lethargic, able to answer my questions partially. Says he wants to go to [facility] today Objective Last 24 Hour Vital Signs Date Time Temp Pulse Resp B/P (MAP) Pulse Ox O2 Delivery O2 Flow Rate FiO2 05/07/18 15:00 111 21 134/80 (98) 97 05/07/18 14:00 106 21 128/84 (99) 100 05/07/18 13:02 129/79 05/07/18 13:00 106 18 130/85 (100) 100 05/07/18 12:00 98.9 107 23 129/79 (96) 100 98.9 05/07/18 12:00 Nasal Cannula 3.0 Nasal Cannula 3.0 Nasal Cannula 3.0 Nasal Cannula 3.0 05/07/18 12:00 100 05/07/18 12:00 3.0 05/07/18 11:00 107 19 104/70 (81) 100 05/07/18 10:00 102 19 113/73 (86) 100 05/07/18 09:00 105 19 122/66 (84) 100 05/07/18 08:37 118/63 05/07/18 08:00 3.0 05/07/18 08:00 98.4 106 23 122/84 (97) 100 98.4 05/07/18 08:00 Nasal Cannula 3.0 Nasal Cannula 3.0 Nasal Cannula 3.0 Nasal Cannula 3.0 05/07/18 08:00 97 05/07/18 07:33 99 Nasal Cannula 3.0 32 05/07/18 07:33 Nasal Cannula 3.0 32 05/07/18 07:00 99 19 135/63 (87) 100 05/07/18 06:00 101 21 118/64 (82) 100 05/07/18 05:20 97 35 100 Facial 30 05/07/18 05:00 97 16 139/86 (103) 100 05/07/18 04:00 Mechanical Ventilator 3.0 Bi-pap Mechanical Ventilator Nasal Cannula 05/07/18 04:00 98.0 100 12 145/74 (97) 100 98.0 05/07/18 04:00 30 05/07/18 04:00 100 05/07/18 03:10 106 28 100 Facial 30 05/07/18 03:00 99 12 121/71 (88) 100 05/07/18 02:00 100 14 129/90 (103) 100 05/07/18 01:02 99 30 100 Facial 30 05/07/18 01:00 100 15 158/70 (99) 100 05/07/18 00:00 30 05/07/18 00:00 98 05/07/18 00:00 Mechanical Ventilator 3.0 Bi-pap Mechanical Ventilator Nasal Cannula 05/07/18 00:00 97.4 99 17 115/76 (89) 100 97.4 05/06/18 23:00 98 14 124/68 (86) 100 05/06/18 23:00 30 05/06/18 22:57 96 26 100 Facial 30 05/06/18 22:00 100 15 154/78 (103) 100 05/06/18 21:00 104 16 160/62 (94) 100 05/06/18 20:00 Mechanical Ventilator 3.0 Mechanical Ventilator Mechanical Ventilator Nasal Cannula 05/06/18 20:00 3.0 05/06/18 20:00 97.6 104 16 165/57 (93) 99 97.6 05/06/18 20:00 105 05/06/18 19:15 116/62 05/06/18 19:00 103 16 108/53 (71) 100 9/14/18 19:00 100 Nasal Cannula 3.0 32 05/06/18 19:00 Nasal Cannula 3.0 32 05/06/18 18:17 Nasal Cannula 3.0 05/06/18 18:00 100 16 118/58 (78) 100 05/06/18 17:00 97 16 109/56 (73) 100 05/06/18 16:38 98 23 30 Intake and Output 05/06/18 05/07/18 19:00 07:00 Intake Total 225 ml 675.000 ml Output Total 900 ml 970 ml Balance -675 ml -295.000 ml IV Total 225 ml 675.000 ml Tube Feeding 0 ml Output Urine Total 800 ml 920 ml Stool Total 100 ml 50 ml # Bowel Movements 1 Laboratory Tests 05/07/18 04:20: White Blood Count 12.8H, Red Blood Count 2.87L, Hemoglobin 9.2L, Hematocrit 27.3L, Mean Corpuscular Volume 95, Mean Corpuscular Hemoglobin 32.1H, Mean Corpuscular Hemoglobin Concent 33.8, Red Cell Distribution Width 14.4, Platelet Count 45L, Mean Platelet Volume 8.5, Neutrophils (%) (Auto) , Lymphocytes (%) ( Auto) , Monocytes (%) (Auto) , Eosinophils (%) (Auto) , Basophils (%) (Auto) , Differential Total Cells Counted 100, Neutrophils % (Manual) 88H, Lymphocytes % (Manual) 5L, Monocytes % (Manual) 5, Eosinophils % (Manual) 1, Basophils % ( Manual) 0, Band Neutrophils 1, Platelet Estimate DecreasedL, Platelet Morphology Normal, Hypochromasia 1+, Prothrombin Time 21.6H, Prothromb Time International Ratio 2.1H, Sodium Level 144, Potassium Level 3.4L, Chloride Level 110H, Carbon Dioxide Level 28, Anion Gap 6, Blood Urea Nitrogen 30H, Creatinine 1.1, Estimat Glomerular Filtration Rate > 60, Glucose Level 119H, Calcium Level 8.6, Total Bilirubin 6.0H, Direct Bilirubin 2.6H, Aspartate Amino Transf (AST/SGOT) 55H, Alanine Aminotransferase (ALT/SGPT) 39, Alkaline Phosphatase 111, Ammonia 26, Total Protein 6.4, Albumin 1.7L, Globulin 4.7, Albumin/Globulin Ratio 0.4L Height (Feet): 5 Height (Inches): 9.00 Weight (Pounds): 308 General Appearance: alert, lethargic Cardiovascular: normal rate, regular rhythm Respiratory/Chest: lungs clear, normal breath sounds Abdomen: non tender, soft Krzysztof Gonsalves MD May 07, 2018 16:33
[2018-05-07] MEDS ORDERED: Midazolam 2mg/2ml Inj IVP PRN (17:00)
[2018-05-07] MEDS ORDERED: Lactulose 20gm/30ml UDC NG SCH (18:00)
[2018-05-07] MEDS ORDERED: Dyna-Hex 2% Top Sol 2oz TOPIC SCH (20:00)
[2018-05-07] MEDS: Vancomycin 1 GM in D5W 275 ML IVPB SCH (21:41)
[2018-05-08] VITALS: BP 132/68
[2018-05-08 04:00] VITALS: BP 132/75
[2018-05-08 08:00] VITALS: BP 132/74
[2018-05-08] MEDS: Lactulose 20gm/30ml UDC ORAL SCH ×3 (09:02→18:01)
[2018-05-08] MEDS: Vancomycin 1 GM in D5W 275 ML IVPB SCH (09:07)
--- NOTE | 2018-05-08 09:15 | Diagnostic Imaging Report ---
EXAM: XR Chest, 1 View CLINICAL HISTORY: INFECT TECHNIQUE: Frontal view of the chest. COMPARISON: CT of the chest dated 04/29/18 FINDINGS: Lungs: Low lung volumes, which may be related to shallow inspiration. Bilateral perihilar opacities with diffuse patchy pulmonary opacities, suggesting pulmonary edema. Pleural space: Unremarkable. The costophrenic angles are sharp. No visible pneumothorax. Heart: Unremarkable. No cardiomegaly. Mediastinum: Unremarkable. Bones/joints: Unremarkable. IMPRESSION: 1. Low lung volumes, which may be related to shallow inspiration. 2. Bilateral perihilar opacities with diffuse patchy pulmonary opacities, suggesting pulmonary edema. Cannot exclude an underlying pneumonia.
--- NOTE | 2018-05-08 09:30 | General Progress Note ---
Assessment/Plan Assessment/Plan Assessment - Cirrhosis - portal HTN / varicies - presumed EtOH hepatitis - some recovery in labs noted - coagulopathy - ascites - s/p tap - sepsis, no SBP on paracentesis fluid - Resp failure>>>resolved - AMS, likely hepatic encephalopathy - hypoglycemia - guarded Recommendations - oral feeding - lactulose - follow labs - broad abx - PPI - check AFP - negative Subjective ROS Limited/Unobtainable: Yes Allergies: Coded Allergies: No Known Allergies (Unverified , 04/29/18) Objective Last 24 Hour Vital Signs Date Time Temp Pulse Resp B/P (MAP) Pulse Ox O2 Delivery O2 Flow Rate FiO2 05/08/18 09:03 132/94 05/08/18 04:00 101 05/08/18 04:00 97.9 103 20 132/75 (94) 97 97.9 05/08/18 04:00 2.0 05/08/18 00:00 97.0 94 20 132/68 (89) 97 97.0 05/08/18 00:00 103 05/08/18 00:00 30 05/07/18 23:15 101 30 97 Facial 30 05/07/18 21:00 Nasal Cannula 1.0 Nasal Cannula 1.0 Nasal Cannula 1.0 05/07/18 20:29 Nasal Cannula 1.0 24 05/07/18 20:28 99 Nasal Cannula 1.0 24 05/07/18 20:00 1.0 05/07/18 20:00 97.2 100 20 135/72 (93) 98 97.2 05/07/18 20:00 113 05/07/18 18:22 138/76 05/07/18 16:00 3.0 05/07/18 16:00 106 05/07/18 16:00 98.9 106 23 118/68 (85) 100 98.9 05/07/18 16:00 Nasal Cannula 3.0 Nasal Cannula 3.0 Nasal Cannula 3.0 Nasal Cannula 3.0 05/07/18 15:00 111 21 134/80 (98) 97 05/07/18 14:00 106 21 128/84 (99) 100 05/07/18 13:02 129/79 05/07/18 13:00 106 18 130/85 (100) 100 05/07/18 12:00 98.9 107 23 129/79 (96) 100 98.9 9/15/18 12:00 Nasal Cannula 3.0 Nasal Cannula 3.0 Nasal Cannula 3.0 Nasal Cannula 3.0 05/07/18 12:00 100 05/07/18 12:00 3.0 05/07/18 11:00 107 19 104/70 (81) 100 05/07/18 10:00 102 19 113/73 (86) 100 Intake and Output 05/07/18 05/08/18 19:00 07:00 Intake Total 1167.416 ml 375 ml Output Total 490 ml 650 ml Balance 677.416 ml -275 ml Intake Oral 350 ml Free Water 50 ml IV Total 767.416 ml 375 ml Output Urine Total 490 ml 650 ml Height (Feet): 5 Height (Inches): 9.00 Weight (Pounds): 309 General Appearance: no apparent distress EENT: normal ENT inspection Neck: supple Cardiovascular: tachycardia Respiratory/Chest: decreased breath sounds Abdomen: soft, hypoactive bowel sounds, distended Extremities: non-tender Nj Kumari MD May 08, 2018 09:30
--- NOTE | 2018-05-08 11:02 | General Surgery Progress Note ---
General Surgery-Progress Note Subjective Additional Comments down graded from ICU now in Tele. awake and responsive. states he is comfortable. no n/v/f/c. leukocytosis Objective Last 24 Hour Vital Signs Date Time Temp Pulse Resp B/P (MAP) Pulse Ox O2 Delivery O2 Flow Rate FiO2 05/08/18 09:03 132/94 05/08/18 09:00 Nasal Cannula 1.0 Nasal Cannula 1.0 Nasal Cannula 1.0 05/08/18 08:00 100 05/08/18 08:00 2.0 05/08/18 08:00 97.3 98 18 132/74 (93) 97 97.3 05/08/18 04:00 101 05/08/18 04:00 97.9 103 20 132/75 (94) 97 97.9 05/08/18 04:00 2.0 05/08/18 00:00 97.0 94 20 132/68 (89) 97 97.0 05/08/18 00:00 103 05/08/18 00:00 30 05/07/18 23:15 101 30 97 Facial 30 05/07/18 21:00 Nasal Cannula 1.0 Nasal Cannula 1.0 Nasal Cannula 1.0 05/07/18 20:29 Nasal Cannula 1.0 24 05/07/18 20:28 99 Nasal Cannula 1.0 24 05/07/18 20:00 1.0 05/07/18 20:00 97.2 100 20 135/72 (93) 98 97.2 05/07/18 20:00 113 05/07/18 18:22 138/76 05/07/18 16:00 3.0 05/07/18 16:00 106 05/07/18 16:00 98.9 106 23 118/68 (85) 100 98.9 05/07/18 16:00 Nasal Cannula 3.0 Nasal Cannula 3.0 Nasal Cannula 3.0 Nasal Cannula 3.0 05/07/18 15:00 111 21 134/80 (98) 97 05/07/18 14:00 106 21 128/84 (99) 100 05/07/18 13:02 129/79 05/07/18 13:00 106 18 130/85 (100) 100 05/07/18 12:00 98.9 107 23 129/79 (96) 100 98.9 05/07/18 12:00 Nasal Cannula 3.0 Nasal Cannula 3.0 Nasal Cannula 3.0 Nasal Cannula 3.0 05/07/18 12:00 100 05/07/18 12:00 3.0 I&O Intake and Output 05/07/18 05/08/18 19:00 07:00 Intake Total 1167.416 ml 375 ml Output Total 490 ml 650 ml Balance 677.416 ml -275 ml Intake Oral 350 ml Free Water 50 ml IV Total 767.416 ml 375 ml Output Urine Total 490 ml 650 ml Dressing: saturated Wound: other Drains: none Cardiovascular: RSR Respiratory: clear Abdomen: soft, distended, present bowel sounds Extremities: other Plan Problems: (1) Wound of lower extremity Assessment & Plan: Multiple venous stasis ulcers of the right lower extremity. Bilateral lower extremity edema Full thickness ulcer noted to lateral right lower extremity (L)7.5cm x (W02.7cm x (D)0.2cm with wound bed grace,(+) maceration. no odor noted .Minimal serous exudate noted Full thickness ulcer noted to medial right lower extremity (L)2.5cm x (W)3cm x ( D)0.4cm with wound bed grace and slightly macerated borders .Minimal serous exudate noted Full thickness ulcer posterior R tibia (L)2.5cm x (W)1cm x (D)0.2cm with wound bed grace ,moist with minimal serous exudate. Hemosiderin noted to bilat lower ext with xeroses. Bilateral heels are dry but blanching. L lower ext noted to be oozing minimal serous exudate but no ulcerations noted. Non-blanching erythema noted wounds present upon admission Plan: Cleanse Ulcerations lateral,medial and posterior RLE with Saline.Apply Calcium Alginate to wounds with ABD and wrap with Kerlix from base of toes daily and prn if soiled. Cavilon wipe to sacrum and cover with foam drsg .Change foam drsg [id number] day and prn. Off-load heels with pillows . Support Surface overlay on bed. Reposition at least every 2hours as tolerated. (2) Shock, septic Logan Gracia May 08, 2018 11:02
[2018-05-08 12:00] VITALS: BP 124/68
--- NOTE | 2018-05-08 15:26 | General Progress Note ---
Assessment/Plan Assessment/Plan Septic Shock due to Providencia bacteremia, will transition to oral antibiotics in the next 24-48 hours Acute hypoxic respiratory failure, stable respiratory status. Decompensated cirrhosis, s/p 6 liter paracentesis, continue rifaximin and lactulose. GI following AGNIESZKA due to ATN from sepsis and hypotension, resolving. Acute metabolic encephalopathy, more lethargic today, continue supportive measures Thrombocytopenia, multifactorial from ESLD, bone marrow suppression from septic shock. No evidence of bleeding at this time. Check CBC in AM. LE ulcerations, Surgery following for wound care. DVT Prophylaxis Venodynes Subjective Date patient seen: May 08, 2018 Time patient seen: 15:23 ROS Limited/Unobtainable: Yes Allergies: Coded Allergies: No Known Allergies (Unverified , 04/29/18) Subjective Medical followup for multiple medical conditions including septic shock, acute hypoxic respiratory failure, decompensated cirrhosis, AGNIESZKA. Patient remains weak and confused, unable to answer my questions appropriately. Objective Last 24 Hour Vital Signs Date Time Temp Pulse Resp B/P (MAP) Pulse Ox O2 Delivery O2 Flow Rate FiO2 05/08/18 13:11 126/68 05/08/18 12:20 Nasal Cannula 3.0 32 05/08/18 12:20 99 Nasal Cannula 3.0 32 05/08/18 12:00 2.0 05/08/18 12:00 97.5 100 18 124/68 (86) 97 97.5 05/08/18 09:03 132/94 05/08/18 09:00 Nasal Cannula 1.0 Nasal Cannula 1.0 Nasal Cannula 1.0 05/08/18 08:00 100 05/08/18 08:00 2.0 05/08/18 08:00 97.3 98 18 132/74 (93) 97 97.3 05/08/18 04:00 101 05/08/18 04:00 97.9 103 20 132/75 (94) 97 97.9 05/08/18 04:00 2.0 05/08/18 00:00 97.0 94 20 132/68 (89) 97 97.0 05/08/18 00:00 103 05/08/18 00:00 30 05/07/18 23:15 101 30 97 Facial 30 05/07/18 21:00 Nasal Cannula 1.0 Nasal Cannula 1.0 Nasal Cannula 1.0 05/07/18 20:29 Nasal Cannula 1.0 24 05/07/18 20:28 99 Nasal Cannula 1.0 24 05/07/18 20:00 1.0 05/07/18 20:00 97.2 100 20 135/72 (93) 98 97.2 05/07/18 20:00 113 05/07/18 18:22 138/76 05/07/18 16:00 3.0 05/07/18 16:00 106 05/07/18 16:00 98.9 106 23 118/68 (85) 100 98.9 05/07/18 16:00 Nasal Cannula 3.0 Nasal Cannula 3.0 Nasal Cannula 3.0 Nasal Cannula 3.0 Intake and Output 05/07/18 05/08/18 19:00 07:00 Intake Total 1167.416 ml 375 ml Output Total 490 ml 650 ml Balance 677.416 ml -275 ml Intake Oral 350 ml Free Water 50 ml IV Total 767.416 ml 375 ml Output Urine Total 490 ml 650 ml Height (Feet): 5 Height (Inches): 9.00 Weight (Pounds): 309 General Appearance: lethargic, confused Cardiovascular: normal rate, regular rhythm Respiratory/Chest: lungs clear, normal breath sounds Abdomen: non tender, soft Krzysztof Gonsalves MD May 08, 2018 15:26
--- NOTE | 2018-05-08 15:34 | General Progress Note ---
Assessment/Plan Assessment/Plan ASSESSMENT AND RECS: 1. Thrombocytopenia, potentially secondary to septic shock, severe sepsis, end- organ damage, closely monitor, platelet count downtrending peripheral smear has been reviewed. The patient continues to have lactic acidosis, improved at this time and, in addition, imaging reviewed. --> The patient noted to be with cirrhosis with portal hypertension, expected coagulopathy. --> hepatitis and hiv reviewed and is negative --> report and give Vit K and ffp and inr is elevated --> DC PROTONIX, other drugs also reviewed as well 2. Coagulopathy with portal hypertension, cirrhosis of liver, large volume ascites, requires paracentesis and requires vitamin K and --> vit K prn basis --> on abx, vanc --> as per ID, appreciate their recs 3. Leukocytosis, likely secondary to underlying infection, potentially related to underlying sepsis versus other causes such as SBP; but again has been seen by GI team --> s/p paracentesis and prn in the future --> on abx 4. AGNIESZKA, on IV fluids as needed 5. Acute encephalopathy. 6. Septic shock. Subjective Constitutional: Denies: no symptoms, chills, diaphoresis, fever, malaise, weakness, other HEENT: Denies: no symptoms, eye pain, blurred vision, tearing, double vision, ear pain, ear discharge, nose pain, nose congestion, throat pain, throat swelling, mouth pain, mouth swelling, other Cardiovascular: Denies: no symptoms, chest pain, edema, irregular heart rate, lightheadedness, palpitations, syncope, other Respiratory: Denies: no symptoms, cough, orthopnea, shortness of breath, SOB with excertion, SOB at rest, sputum, stridor, wheezing, other Gastrointestinal/Abdominal: Denies: no symptoms, abdomen distended, abdominal pain, black stools, tarry stools, blood in stool, constipated, diarrhea, difficulty swallowing, nausea, poor appetite, poor fluid intake, rectal bleeding , vomiting, other Genitourinary: Denies: no symptoms, burning, discharge, frequency, flank pain, hematuria, incontinence, pain, urgency, other Neurologic/Psychiatric: Denies: no symptoms, anxiety, depressed, emotional problems, headache, numbness, paresthesia, pre-existing deficit, seizure, tingling, tremors, weakness, other Endocrine: Denies: no symptoms, excessive sweating, flushing, intolerance to cold, intolerance to heat, increased hunger, increased thirst, increased urine, unexplained weight gain, unexplained weight loss, other Hematologic/Lymphatic: Denies: no symptoms, anemia, easy bleeding, easy bruising, other Allergies: Coded Allergies: No Known Allergies (Unverified , 04/29/18) Subjective out of unit, no fevers or chills, on abx Objective Last 24 Hour Vital Signs Date Time Temp Pulse Resp B/P (MAP) Pulse Ox O2 Delivery O2 Flow Rate FiO2 05/08/18 13:11 126/68 05/08/18 12:20 Nasal Cannula 3.0 32 05/08/18 12:20 99 Nasal Cannula 3.0 32 05/08/18 12:00 2.0 05/08/18 12:00 97.5 100 18 124/68 (86) 97 97.5 05/08/18 09:03 132/94 05/08/18 09:00 Nasal Cannula 1.0 Nasal Cannula 1.0 Nasal Cannula 1.0 05/08/18 08:00 100 05/08/18 08:00 2.0 05/08/18 08:00 97.3 98 18 132/74 (93) 97 97.3 05/08/18 04:00 101 05/08/18 04:00 97.9 103 20 132/75 (94) 97 97.9 05/08/18 04:00 2.0 05/08/18 00:00 97.0 94 20 132/68 (89) 97 97.0 05/08/18 00:00 103 05/08/18 00:00 30 05/07/18 23:15 101 30 97 Facial 30 05/07/18 21:00 Nasal Cannula 1.0 Nasal Cannula 1.0 Nasal Cannula 1.0 05/07/18 20:29 Nasal Cannula 1.0 24 05/07/18 20:28 99 Nasal Cannula 1.0 24 05/07/18 20:00 1.0 05/07/18 20:00 97.2 100 20 135/72 (93) 98 97.2 05/07/18 20:00 113 05/07/18 18:22 138/76 05/07/18 16:00 3.0 05/07/18 16:00 106 05/07/18 16:00 98.9 106 23 118/68 (85) 100 98.9 05/07/18 16:00 Nasal Cannula 3.0 Nasal Cannula 3.0 Nasal Cannula 3.0 Nasal Cannula 3.0 Intake and Output 05/07/18 05/08/18 19:00 07:00 Intake Total 1167.416 ml 375 ml Output Total 490 ml 650 ml Balance 677.416 ml -275 ml Intake Oral 350 ml Free Water 50 ml IV Total 767.416 ml 375 ml Output Urine Total 490 ml 650 ml Height (Feet): 5 Height (Inches): 9.00 Weight (Pounds): 309 General Appearance: no apparent distress EENT: TMs normal Neck: supple Cardiovascular: regular rhythm Respiratory/Chest: lungs clear Abdomen: soft Extremities: non-tender Edema: 1+ Leg (L), 1+ Leg (R) Edema: mild edema Neurologic: alert Skin: warm/dry Eric Irizarry MD May 08, 2018 15:34
--- NOTE | 2018-05-08 15:49 | Infectious Diseases Prog Note ---
Assessment/Plan Assessment/Plan ASSESSMENT AND PLAN: 1. sepsis, shock, providencia bacteremia, likely GI source, ? SBP, mrsa/proteus right leg wound infection, right leg cellulitis, mrsa pna, leukocytosis, fevers s/p bronchoscopy, sc-yeast, fungemia risk, leukocytosis worse - vancomycin and zosyn, add micafungin - f/u on bronchoscopy results - monitor labs and chest x-ray - s/p paracentesis - 6 wbc, doubt sbp - off vent - off pressors 2. Liver cirrhosis. 3. Portal hypertension. 4. Ascites. 5. Anemia. 6. Thrombocytopenia. 7. Respiratory failure. 8. Low blood pressure. 9. Sepsis, shock. 10. Varices. 11. ETOH hepatitis. 12. Coagulopathy. 13. Altered mental status 14. hepatic encephalopathy 15. Past medical history noted. 16. He has no known allergies. 17. Social history is presumptively I think positive for ETOH. Cannot assess smoking or IV drug abuse. 18. Family history is noncontributory. 19. MAR was noted. 20. Case discussed with RN. 21. ICU care. 22. Case discussed with Dr. Rasmussen. 23. Continue treatment per primary consultants. 24. Poor prognosis. 25. Orders were entered and noted. 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 Subjective Constitutional: Reports: fatigue, other - extubated, off vent; Denies: fever HEENT: Reports: congestion Respiratory: Reports: shortness of breath Cardiovascular: Denies: chest pain Gastrointestinal/Abdominal: Reports: diarrhea, other - + rectal tube; Denies: nausea, vomiting Genitourinary: Reports: other - + grimm Neurologic: Denies: headache Psychiatric: Denies: depression Skin: Denies: rash Hematologic: Denies: bleeding Musculoskeletal: Denies: pain Allergies: Coded Allergies: No Known Allergies (Unverified , 04/29/18) Objective Vital Signs Last 24 Hour Vital Signs Date Time Temp Pulse Resp B/P (MAP) Pulse Ox O2 Delivery O2 Flow Rate FiO2 05/08/18 13:11 126/68 05/08/18 12:20 Nasal Cannula 3.0 32 05/08/18 12:20 99 Nasal Cannula 3.0 32 05/08/18 12:00 2.0 05/08/18 12:00 97.5 100 18 124/68 (86) 97 97.5 05/08/18 09:03 132/94 05/08/18 09:00 Nasal Cannula 1.0 Nasal Cannula 1.0 Nasal Cannula 1.0 05/08/18 08:00 100 05/08/18 08:00 2.0 05/08/18 08:00 97.3 98 18 132/74 (93) 97 97.3 05/08/18 04:00 101 05/08/18 04:00 97.9 103 20 132/75 (94) 97 97.9 05/08/18 04:00 2.0 05/08/18 00:00 97.0 94 20 132/68 (89) 97 97.0 05/08/18 00:00 103 05/08/18 00:00 30 05/07/18 23:15 101 30 97 Facial 30 05/07/18 21:00 Nasal Cannula 1.0 Nasal Cannula 1.0 Nasal Cannula 1.0 05/07/18 20:29 Nasal Cannula 1.0 24 05/07/18 20:28 99 Nasal Cannula 1.0 24 05/07/18 20:00 1.0 05/07/18 20:00 97.2 100 20 135/72 (93) 98 97.2 05/07/18 20:00 113 05/07/18 18:22 138/76 05/07/18 16:00 3.0 05/07/18 16:00 106 05/07/18 16:00 98.9 106 23 118/68 (85) 100 98.9 05/07/18 16:00 Nasal Cannula 3.0 Nasal Cannula 3.0 Nasal Cannula 3.0 Nasal Cannula 3.0 Height (Feet): 5 Height (Inches): 9.00 Weight (Pounds): 309 General Appearance: no acute distress HEENT: normocephalic, atraumatic, anicteric, mucous membranes moist, other - + icterus Respiratory/Chest: crackles/rales, rhonchi - bilaterally Cardiovascular: normal rate, regular rhythm Abdomen: normal bowel sounds, soft, non tender, no organomegaly, non distended , other - + rectal tube Genitourinary: other - + grimm Extremities: no cyanosis, no clubbing Skin: no rash 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 Right internal jugular, grossly unchanged. Nasogastric tube in gastric cavity. Endotracheal tube 5 cm above the pamela. Increasing opacity in bilateral mid to lower lung zones. No pleural effusions. The visualized osseous structures are within normal limits. IMPRESSION: Stable tubes and lines as outlined above. Increasing opacity in bilateral mid to lower lung zones. CT imaging noted - reports noted 05/03/18 - Chest x-ray - Findings: Patchy, heterogeneous airspace opacities and interstitial opacities identified. Heart is stable. Tubes and lines are stable. IMPRESSION: Patchy lung disease likely on the basis of pulmonary edema. Infiltrates not excluded. Chest x-ray - 05/08 - FINDINGS: Lungs: Low lung volumes, which may be related to shallow inspiration. Bilateral perihilar opacities with diffuse patchy pulmonary opacities, suggesting pulmonary edema. Pleural space: Unremarkable. The costophrenic angles are sharp. No visible pneumothorax. Heart: Unremarkable. No cardiomegaly. Mediastinum: Unremarkable. Bones/joints: Unremarkable. IMPRESSION: 1. Low lung volumes, which may be related to shallow inspiration. 2. Bilateral perihilar opacities with diffuse patchy pulmonary opacities, suggesting pulmonary edema. Cannot exclude an underlying pneumonia. Microbiology Date/Time Source Procedure Growth Status 05/06/18 18:00 Blood Blood Culture - Preliminary NO GROWTH AFTER 24 HOURS Resulted 05/06/18 18:00 Blood Blood Culture - Preliminary NO GROWTH AFTER 24 HOURS Resulted 05/06/18 15:00 Bronchial Washings Not Specified Gram Stain - Final Resulted 05/06/18 15:00 Bronchial Aspirate Culture - Preliminary YEAST Resulted Labs Test 05/06/18 08:17 05/06/18 14:41 05/07/18 04:20 Vancomycin Level Trough 17.0 ug/mL (5.0-12.0) White Blood Count 12.3 K/UL (4.8-10.8) 12.8 K/UL (4.8-10.8) Red Blood Count 2.69 M/UL (4.70-6.10) 2.87 M/UL (4.70-6.10) Hemoglobin 8.5 G/DL (14.2-18.0) 9.2 G/DL (14.2-18.0) Hematocrit 25.4 % (42.0-52.0) 27.3 % (42.0-52.0) Mean Corpuscular Volume 95 FL (80-99) 95 FL (80-99) Mean Corpuscular Hemoglobin 31.5 PG (27.0-31.0) 32.1 PG (27.0-31.0) Mean Corpuscular Hemoglobin Concent 33.3 G/DL (32.0-36.0) 33.8 G/DL (32.0-36.0) Red Cell Distribution Width 14.1 % (11.6-14.8) 14.4 % (11.6-14.8) Platelet Count 44 K/UL (150-450) 45 K/UL (150-450) Mean Platelet Volume 6.7 FL (6.5-10.1) 8.5 FL (6.5-10.1) Neutrophils (%) (Auto) % (45.0-75.0) % (45.0-75.0) Lymphocytes (%) (Auto) % (20.0-45.0) % (20.0-45.0) Monocytes (%) (Auto) % (1.0-10.0) % (1.0-10.0) Eosinophils (%) (Auto) % (0.0-3.0) % (0.0-3.0) Basophils (%) (Auto) % (0.0-2.0) % (0.0-2.0) Differential Total Cells Counted 100 100 Neutrophils % (Manual) 74 % (45-75) 88 % (45-75) Lymphocytes % (Manual) 9 % (20-45) 5 % (20-45) Monocytes % (Manual) 9 % (1-10) 5 % (1-10) Eosinophils % (Manual) 2 % (0-3) 1 % (0-3) Basophils % (Manual) 0 % (0-2) 0 % (0-2) Metamyelocytes % 1 % (0-0) Band Neutrophils 5 % (0-8) 1 % (0-8) Platelet Estimate Decreased Decreased Platelet Morphology Normal Normal Hypochromasia 1+ 1+ Sodium Level 144 MMOL/L (136-145) 144 MMOL/L (136-145) Potassium Level 3.4 MMOL/L (3.5-5.1) 3.4 MMOL/L (3.5-5.1) Chloride Level 110 MMOL/L (98-107) 110 MMOL/L (98-107) Carbon Dioxide Level 28 MMOL/L (21-32) 28 MMOL/L (21-32) Anion Gap 6 mmol/L (5-15) 6 mmol/L (5-15) Blood Urea Nitrogen 33 mg/dL (7-18) 30 mg/dL (7-18) Creatinine 1.1 MG/DL (0.55-1.30) 1.1 MG/DL (0.55-1.30) Estimat Glomerular Filtration Rate > 60 mL/min (>60) > 60 mL/min (>60) Glucose Level 132 MG/DL (74-106) 119 MG/DL (74-106) Calcium Level 8.4 MG/DL (8.5-10.1) 8.6 MG/DL (8.5-10.1) Total Bilirubin 5.2 MG/DL (0.2-1.0) 6.0 MG/DL (0.2-1.0) Direct Bilirubin 2.3 MG/DL (0.0-0.3) 2.6 MG/DL (0.0-0.3) Aspartate Amino Transf (AST/SGOT) 59 U/L (15-37) 55 U/L (15-37) Alanine Aminotransferase (ALT/SGPT) 40 U/L (12-78) 39 U/L (12-78) Alkaline Phosphatase 117 U/L (46-116) 111 U/L (46-116) Total Protein 6.3 G/DL (6.4-8.2) 6.4 G/DL (6.4-8.2) Albumin 1.6 G/DL (3.4-5.0) 1.7 G/DL (3.4-5.0) Globulin 4.7 g/dL 4.7 g/dL Albumin/Globulin Ratio 0.3 (1.0-2.7) 0.4 (1.0-2.7) Prothrombin Time 21.6 SEC (9.30-11.50) Prothromb Time International Ratio 2.1 (0.9-1.1) Ammonia 26 umol/L (11-32) Current Medications Medications (Trade) Dose Ordered Sig/Ry Route PRN Reason Start Time Stop Time Status Last Admin Dose Admin Lactulose (Cephulac) 20 gm THREE TIMES A DAY ORAL 05/08/18 09:00 05/30/18 12:59 05/08/18 13:11 Pentoxifylline (TRENtal) 400 mg THREE TIMES A DAY ORAL 05/07/18 18:00 05/31/18 08:59 05/08/18 13:11 Piperacillin Sod/ Tazobactam Sod 3.375 gm/Dextrose 100 ml @ 25 mls/hr EVERY 8 HOURS IVPB 05/07/18 22:00 05/08/18 18:00 05/08/18 13:16 Piperacillin Sod/ Tazobactam Sod 3.375 gm/Dextrose 110 ml @ 27.5 mls/hr EVERY 8 HOURS IVPB 05/08/18 22:00 05/13/18 21:59 Vancomycin HCl (Vanco rx to dose) 1 ea DAILY PRN MISC Per rx protocol 05/08/18 15:43 06/07/18 15:42 Vancomycin HCl 1 gm/Dextrose 275 ml @ 183.708 mls/hr Q12HR IVPB 05/08/18 21:00 05/10/18 20:59 Doris Ramos MD May 08, 2018 15:49
[2018-05-08 16:00] VITALS: BP 128/81
[2018-05-08] MEDS ORDERED: 1/2 NS 1000ml IV ONE (16:31)
[2018-05-08] MEDS ORDERED: Tubing IV Secondary IV ONE (16:39)
[2018-05-08 20:00] VITALS: BP 103/71
[2018-05-08] MEDS ORDERED: Vancomycin 1 GM in D5W 275 ML IVPB SCH (21:00)
[2018-05-08] MEDS: Piperacillin/Tazobactam 3.375 GM in D5W 110 ML IVPB SCH (21:59)
[2018-05-09] VITALS (7 sets, daily range): BP systolic 130–138; BP diastolic 75–90
[2018-05-09] MEDS: Piperacillin/Tazobactam 3.375 GM in D5W 110 ML IVPB SCH (06:00)
[2018-05-09 07:12] LABS: ANION GAP 5 mmol/L (5-15); BLOOD UREA NITROGEN 18 mg/dL (7-18); CARBON DIOXIDE 29 MMOL/L (21-32); CHLORIDE 109 MMOL/L (98-107); POTASSIUM 3.8 MMOL/L (3.5-5.1); SODIUM 143 MMOL/L (136-145)
[2018-05-09 07:19] LABS: HEMATOCRIT 30.7 % (42.0-52.0); HEMOGLOBIN 10.3 G/DL (14.2-18.0); MEAN CORPUSCULAR VOLUME 97 FL (80-99); PLATELET COUNT 62 K/UL (150-450); RED BLOOD COUNT 3.18 M/UL (4.70-6.10); RED CELL DISTRIBUTION WIDTH 15.4 % (11.6-14.8); WHITE BLOOD COUNT 14.3 K/UL (4.8-10.8)
[2018-05-09] MEDS: Lactulose 20gm/30ml UDC ORAL SCH ×3 (08:37→17:07)
[2018-05-09] MEDS ORDERED: LORazepam 1mg tab ORAL PRN (10:30)
[2018-05-09] MEDS ORDERED: Fluconazole 100mg tab ORAL SCH (10:30)
--- NOTE | 2018-05-09 10:32 | Consultation ---
History of Present Illness General Chief Complaint: Altered Level of Consciousness Reason for Consultation: lower extremity wounds Present Illness HPI 57-year-old came to the emergency room last night with altered mental status and subsequently he had to be intubated for airway protection. the pt has waxing and waning of consciousness Allergies: Coded Allergies: No Known Allergies (Unverified , 04/29/18) Medication History Scheduled Ascorbic Acid* (Ascorbic Acid*), 500 MG ORAL DAILY, (Reported) Furosemide* (Lasix*), 40 MG ORAL DAILY, (Reported) Multivitamin with Minerals (Multivitamins with Minerals), 1 TAB ORAL DAILY, ( Reported) Spironolactone* (Spironolactone*), 25 MG ORAL DAILY, (Reported) Zinc Sulfate (Zinc Sulfate*), 220 MG ORAL DAILY, (Reported) Scheduled PRN Hydrocodone Bit/Acetaminophen 5-325* ([place] 5-325*), 1 TAB ORAL Q6H PRN for For Pain, (Reported) Miscellaneous Medications Beta-Carotene (Beta Carotene), 25,000 UNIT PO, (Reported) Lactulose (Lactulose*), 30 ML ORAL, (Reported) Magnesium Oxide (Magnesium), 400 MG PO, (Reported) Pentoxifylline* (Trental*), 400 MG ORAL, (Reported) Patient History Limited by: medical condition History Provided By: Medical Record Healthcare decision maker none listed Resuscitation status Full Code Advanced Directive on File No Past Medical/Surgical History Past Medical/Surgical History: (1) Hyperbilirubinemia (2) Acute kidney failure (3) Shock, septic (4) Altered mental state (5) Cellulitis (6) Cirrhosis of liver (7) Lactic acid acidosis (8) Acute encephalopathy (9) Acute respiratory failure without hypercapnia (10) Gram negative sepsis (11) Coagulopathy (12) Thrombocytopenia (13) Wound of lower extremity Review of Systems Psychiatric: Reports: anxiety, depressed feelings, emotional problems Physical Exam General Appearance: no apparent distress, lethargic, confused Last 24 Hour Vital Signs Date Time Temp Pulse Resp B/P (MAP) Pulse Ox O2 Delivery O2 Flow Rate FiO2 05/09/18 08:47 Nasal Cannula 3.0 Nasal Cannula 3.0 Nasal Cannula 3.0 05/09/18 08:38 131/82 05/09/18 08:00 97.5 97 20 131/82 (98) 100 97.5 05/09/18 08:00 98 05/09/18 08:00 3.0 05/09/18 04:00 99.3 98 19 132/75 (94) 94 99.3 05/09/18 04:00 3.0 05/09/18 04:00 96 05/09/18 00:00 98.0 96 18 133/85 (101) 95 98.0 05/09/18 00:00 3.0 05/09/18 00:00 102 05/08/18 21:00 Nasal Cannula 1.0 Nasal Cannula 2.0 Nasal Cannula 2.0 05/08/18 20:00 93 05/08/18 20:00 98.4 103 19 103/71 (82) 94 98.4 05/08/18 20:00 2.0 05/08/18 19:42 Nasal Cannula 3.0 32 05/08/18 19:34 98 Nasal Cannula 3.0 32 05/08/18 18:01 128/81 05/08/18 16:00 2.0 05/08/18 16:00 100 05/08/18 16:00 97.3 102 18 128/81 (97) 99 97.3 05/08/18 13:11 126/68 05/08/18 12:20 Nasal Cannula 3.0 32 05/08/18 12:20 99 Nasal Cannula 3.0 32 05/08/18 12:00 2.0 05/08/18 12:00 93 05/08/18 12:00 97.5 100 18 124/68 (86) 97 97.5 Intake and Output 05/08/18 05/09/18 19:00 07:00 Intake Total 630 ml 120 ml Output Total 350 ml 600 ml Balance 280 ml -480 ml Intake Oral 630 ml 120 ml Output Urine Total 350 ml 600 ml Laboratory Tests Test 05/09/18 06:05 White Blood Count 14.3 K/UL (4.8-10.8) H Red Blood Count 3.18 M/UL (4.70-6.10) L Hemoglobin 10.3 G/DL (14.2-18.0) L Hematocrit 30.7 % (42.0-52.0) L Mean Corpuscular Volume 97 FL (80-99) Mean Corpuscular Hemoglobin 32.3 PG (27.0-31.0) H Mean Corpuscular Hemoglobin Concent 33.5 G/DL (32.0-36.0) Red Cell Distribution Width 15.4 % (11.6-14.8) H Platelet Count 62 K/UL (150-450) L Mean Platelet Volume 7.4 FL (6.5-10.1) Neutrophils (%) (Auto) % (45.0-75.0) Lymphocytes (%) (Auto) % (20.0-45.0) Monocytes (%) (Auto) % (1.0-10.0) Eosinophils (%) (Auto) % (0.0-3.0) Basophils (%) (Auto) % (0.0-2.0) Neutrophils % (Manual) Pending Lymphocytes % (Manual) Pending Platelet Estimate Pending Platelet Morphology Pending Sodium Level 143 MMOL/L (136-145) Potassium Level 3.8 MMOL/L (3.5-5.1) Chloride Level 109 MMOL/L (98-107) H Carbon Dioxide Level 29 MMOL/L (21-32) Anion Gap 5 mmol/L (5-15) Blood Urea Nitrogen 18 mg/dL (7-18) Creatinine 1.0 MG/DL (0.55-1.30) Estimat Glomerular Filtration Rate > 60 mL/min (>60) Glucose Level 117 MG/DL (74-106) H Calcium Level 9.0 MG/DL (8.5-10.1) Height (Feet): 5 Height (Inches): 9.00 Weight (Pounds): 303 Medications Current Medications Medications (Trade) Dose Ordered Sig/Ry Route PRN Reason Start Time Stop Time Status Last Admin Dose Admin Amoxicillin/ Clavulanate Potassium (Augmentin) 875 mg EVERY 12 HOURS ORAL 05/09/18 21:00 05/16/18 20:59 Ciprofloxacin (Cipro 500mg tab) 500 mg EVERY 12 HOURS ORAL 05/09/18 21:00 05/16/18 20:59 Fluconazole (Diflucan) 200 mg DAILY ORAL 05/09/18 10:30 05/16/18 10:29 Lactulose (Cephulac) 20 gm THREE TIMES A DAY ORAL 05/08/18 09:00 05/30/18 12:59 05/09/18 08:37 Pentoxifylline (TRENtal) 400 mg THREE TIMES A DAY ORAL 05/07/18 18:00 05/31/18 08:59 05/09/18 08:38 Assessment/Plan Assessment/Plan encephalopathy due to c agitation seroquel prn provided ro/Chava Etienne MD May 09, 2018 10:32
--- NOTE | 2018-05-09 12:54 | General Surgery Progress Note ---
General Surgery-Progress Note Subjective Additional Comments no acute events. leukocytosis worsening. Objective Last 24 Hour Vital Signs Date Time Temp Pulse Resp B/P (MAP) Pulse Ox O2 Delivery O2 Flow Rate FiO2 05/09/18 12:37 135/83 05/09/18 08:47 Nasal Cannula 3.0 Nasal Cannula 3.0 Nasal Cannula 3.0 05/09/18 08:38 131/82 05/09/18 08:00 97.5 97 20 131/82 (98) 100 97.5 05/09/18 08:00 98 05/09/18 08:00 3.0 05/09/18 04:00 99.3 98 19 132/75 (94) 94 99.3 05/09/18 04:00 3.0 05/09/18 04:00 96 05/09/18 00:00 98.0 96 18 133/85 (101) 95 98.0 05/09/18 00:00 3.0 05/09/18 00:00 102 05/08/18 21:00 Nasal Cannula 1.0 Nasal Cannula 2.0 Nasal Cannula 2.0 05/08/18 20:00 93 05/08/18 20:00 98.4 103 19 103/71 (82) 94 98.4 05/08/18 20:00 2.0 05/08/18 19:42 Nasal Cannula 3.0 32 05/08/18 19:34 98 Nasal Cannula 3.0 32 05/08/18 18:01 128/81 05/08/18 16:00 2.0 05/08/18 16:00 100 05/08/18 16:00 97.3 102 18 128/81 (97) 99 97.3 05/08/18 13:11 126/68 I&O Intake and Output 05/08/18 05/09/18 19:00 07:00 Intake Total 630 ml 120 ml Output Total 350 ml 600 ml Balance 280 ml -480 ml Intake Oral 630 ml 120 ml Output Urine Total 350 ml 600 ml Dressing: saturated Wound: clean Drains: none Cardiovascular: RSR Respiratory: clear Abdomen: soft, flat, non-tender, present bowel sounds Extremities: other Laboratory Tests Test 05/09/18 06:05 White Blood Count 14.3 K/UL (4.8-10.8) H Red Blood Count 3.18 M/UL (4.70-6.10) L Hemoglobin 10.3 G/DL (14.2-18.0) L Hematocrit 30.7 % (42.0-52.0) L Mean Corpuscular Volume 97 FL (80-99) Mean Corpuscular Hemoglobin 32.3 PG (27.0-31.0) H Mean Corpuscular Hemoglobin Concent 33.5 G/DL (32.0-36.0) Red Cell Distribution Width 15.4 % (11.6-14.8) H Platelet Count 62 K/UL (150-450) L Mean Platelet Volume 7.4 FL (6.5-10.1) Neutrophils (%) (Auto) % (45.0-75.0) Lymphocytes (%) (Auto) % (20.0-45.0) Monocytes (%) (Auto) % (1.0-10.0) Eosinophils (%) (Auto) % (0.0-3.0) Basophils (%) (Auto) % (0.0-2.0) Neutrophils % (Manual) Pending Lymphocytes % (Manual) Pending Platelet Estimate Pending Platelet Morphology Pending Sodium Level 143 MMOL/L (136-145) Potassium Level 3.8 MMOL/L (3.5-5.1) Chloride Level 109 MMOL/L (98-107) H Carbon Dioxide Level 29 MMOL/L (21-32) Anion Gap 5 mmol/L (5-15) Blood Urea Nitrogen 18 mg/dL (7-18) Creatinine 1.0 MG/DL (0.55-1.30) Estimat Glomerular Filtration Rate > 60 mL/min (>60) Glucose Level 117 MG/DL (74-106) H Calcium Level 9.0 MG/DL (8.5-10.1) Plan Problems: (1) Wound of lower extremity Assessment & Plan: Multiple venous stasis ulcers of the right lower extremity. Bilateral lower extremity edema Full thickness ulcer noted to lateral right lower extremity (L)7.5cm x (W02.7cm x (D)0.2cm with wound bed grace,(+) maceration. no odor noted .Minimal serous exudate noted Full thickness ulcer noted to medial right lower extremity (L)2.5cm x (W)3cm x ( D)0.4cm with wound bed grace and slightly macerated borders .Minimal serous exudate noted Full thickness ulcer posterior R tibia (L)2.5cm x (W)1cm x (D)0.2cm with wound bed grace ,moist with minimal serous exudate. Hemosiderin noted to bilat lower ext with xeroses. Bilateral heels are dry but blanching. L lower ext noted to be oozing minimal serous exudate but no ulcerations noted. Non-blanching erythema noted wounds present upon admission unlikely etiology of leukocytosis. cont abx Plan: Cleanse Ulcerations lateral,medial and posterior RLE with Saline.Apply Calcium Alginate to wounds with ABD and wrap with Kerlix from base of toes daily and prn if soiled. Cavilon wipe to sacrum and cover with foam drsg .Change foam drsg [id number] day and prn. Off-load heels with pillows . Support Surface overlay on bed. Reposition at least every 2hours as tolerated. (2) Shock, septic Logan Gracia May 09, 2018 12:54
--- NOTE | 2018-05-09 13:49 | Pulmonology Progress Note ---
Assessment/Plan Problems: (1) Wound of lower extremity (2) Gram negative sepsis (3) Acute respiratory failure without hypercapnia (4) Acute encephalopathy (5) Lactic acid acidosis (6) Cirrhosis of liver (7) Cellulitis (8) Altered mental state (9) Shock, septic (10) Acute kidney failure Assessment/Plan Optimize pulmonary hygiene/mobilize as tolerated PRN O2 PRN Lasix - will give 20 IV x 1 now Abx per ID, F/U C diff, monitor WCt Lactulose/trental Hep SQ FC Dispo planning Subjective Allergies: Coded Allergies: No Known Allergies (Unverified , 04/29/18) Subjective AFVSS, on 3L, inc WCt Denies cough, no SOB, no F/C, LE dressed Objective Last 24 Hour Vital Signs Date Time Temp Pulse Resp B/P (MAP) Pulse Ox O2 Delivery O2 Flow Rate FiO2 05/09/18 12:37 135/83 05/09/18 12:00 97.2 95 20 135/83 (100) 99 97.2 05/09/18 12:00 3.0 05/09/18 12:00 97 05/09/18 08:47 Nasal Cannula 3.0 Nasal Cannula 3.0 Nasal Cannula 3.0 05/09/18 08:38 131/82 05/09/18 08:00 97.5 97 20 131/82 (98) 100 97.5 05/09/18 08:00 98 05/09/18 08:00 3.0 05/09/18 04:00 99.3 98 19 132/75 (94) 94 99.3 05/09/18 04:00 3.0 05/09/18 04:00 96 05/09/18 00:00 98.0 96 18 133/85 (101) 95 98.0 05/09/18 00:00 3.0 05/09/18 00:00 102 05/08/18 21:00 Nasal Cannula 1.0 Nasal Cannula 2.0 Nasal Cannula 2.0 05/08/18 20:00 93 05/08/18 20:00 98.4 103 19 103/71 (82) 94 98.4 05/08/18 20:00 2.0 05/08/18 19:42 Nasal Cannula 3.0 32 05/08/18 19:34 98 Nasal Cannula 3.0 32 05/08/18 18:01 128/81 05/08/18 16:00 2.0 05/08/18 16:00 100 05/08/18 16:00 97.3 102 18 128/81 (97) 99 97.3 Intake and Output 05/08/18 05/09/18 19:00 07:00 Intake Total 630 ml 120 ml Output Total 350 ml 600 ml Balance 280 ml -480 ml Intake Oral 630 ml 120 ml Output Urine Total 350 ml 600 ml General Appearance: no acute distress, other - obese HEENT: normocephalic, atraumatic, anicteric, mucous membranes moist Respiratory/Chest: chest wall non-tender, rhonchi - at bases Cardiovascular: normal peripheral pulses, normal rate, regular rhythm Abdomen: normal bowel sounds, soft, non tender, no organomegaly, non distended , no mass Extremities: no cyanosis, no clubbing, other - bLEE dressed Microbiology Date/Time Source Procedure Growth Status 05/06/18 18:00 Blood Blood Culture - Preliminary NO GROWTH AFTER 48 HOURS Resulted 05/06/18 18:00 Blood Blood Culture - Preliminary NO GROWTH AFTER 48 HOURS Resulted 05/06/18 15:00 Bronchial Washings Not Specified Gram Stain - Final Resulted 05/06/18 15:00 Bronchial Aspirate Culture - Preliminary YEAST Resulted Laboratory Tests 05/09/18 06:05: White Blood Count 14.3H, Red Blood Count 3.18L, Hemoglobin 10.3L, Hematocrit 30.7L, Mean Corpuscular Volume 97, Mean Corpuscular Hemoglobin 32.3H, Mean Corpuscular Hemoglobin Concent 33.5, Red Cell Distribution Width 15.4H, Platelet Count 62L, Mean Platelet Volume 7.4, Neutrophils (%) (Auto) , Lymphocytes (%) (Auto) , Monocytes (%) (Auto) , Eosinophils (%) (Auto) , Basophils (%) (Auto) , Differential Total Cells Counted 100, Neutrophils % ( Manual) 86H, Lymphocytes % (Manual) 7L, Monocytes % (Manual) 5, Eosinophils % ( Manual) 2, Basophils % (Manual) 0, Band Neutrophils 0, Platelet Estimate DecreasedL, Platelet Morphology Normal, Hypochromasia 1+, Anisocytosis 1+, Sodium Level 143, Potassium Level 3.8, Chloride Level 109H, Carbon Dioxide Level 29, Anion Gap 5, Blood Urea Nitrogen 18, Creatinine 1.0, Estimat Glomerular Filtration Rate > 60, Glucose Level 117H, Calcium Level 9.0 Current Medications Medications (Trade) Dose Ordered Sig/Ry Route PRN Reason Start Time Stop Time Status Last Admin Dose Admin Amoxicillin/ Clavulanate Potassium (Augmentin) 875 mg EVERY 12 HOURS ORAL 05/09/18 21:00 05/16/18 20:59 Ciprofloxacin (Cipro 500mg tab) 500 mg EVERY 12 HOURS ORAL 05/09/18 21:00 05/16/18 20:59 Lactulose (Cephulac) 20 gm THREE TIMES A DAY ORAL 05/08/18 09:00 05/30/18 12:59 05/09/18 12:37 Lorazepam (Ativan) 2 mg Q6H PRN ORAL For Anxiety 05/09/18 10:30 05/16/18 10:29 Pentoxifylline (TRENtal) 400 mg THREE TIMES A DAY ORAL 05/07/18 18:00 05/31/18 08:59 05/09/18 12:37 Mario Rasmussen MD May 09, 2018 13:49
[2018-05-09 13:57] LABS: APTT 1:1 NORMAL PLASMA 27.2 sec (22.9-30.2); APTT 1:1NP MIX 60M INCUBATION 28.2 sec (22.9-30.2); APTT 1:1NP MIX CONTROL 27.6 sec (22.9-30.2)
--- NOTE | 2018-05-09 13:59 | General Progress Note ---
Assessment/Plan Assessment/Plan Septic Shock due to Providencia bacteremia, changed to oral antibiotic by ID Acute hypoxic respiratory failure, vascular congestion on CXR, one dose of Lasix as per Pulm recs Decompensated cirrhosis, s/p 6 liter paracentesis, continue rifaximin and lactulose. GI following AGNIESZKA due to ATN from sepsis and hypotension, resolving. Acute metabolic encephalopathy, agitation overnight, continue supportive measures Thrombocytopenia, multifactorial from ESLD, bone marrow suppression from septic shock. No evidence of bleeding at this time. Continue to monitor labs LE ulcerations, Surgery following for wound care, no evidence of cellulitis Diarrhea, check stool for C. diff DVT Prophylaxis Venodynes Subjective Date patient seen: May 09, 2018 Time patient seen: 13:56 ROS Limited/Unobtainable: Yes - Unable to obtain due to encephalopathy Allergies: Coded Allergies: No Known Allergies (Unverified , 04/29/18) Subjective Medical followup for multiple medical conditions including septic shock, acute hypoxic respiratory failure, decompensated cirrhosis, AGNIESZKA. Overnight was markedly confused, pulled out IV and rectal tube. Objective Last 24 Hour Vital Signs Date Time Temp Pulse Resp B/P (MAP) Pulse Ox O2 Delivery O2 Flow Rate FiO2 05/09/18 12:37 135/83 05/09/18 12:00 97.2 95 20 135/83 (100) 99 97.2 05/09/18 12:00 3.0 05/09/18 12:00 97 05/09/18 08:47 Nasal Cannula 3.0 Nasal Cannula 3.0 Nasal Cannula 3.0 05/09/18 08:38 131/82 05/09/18 08:00 97.5 97 20 131/82 (98) 100 97.5 05/09/18 08:00 98 05/09/18 08:00 3.0 05/09/18 04:00 99.3 98 19 132/75 (94) 94 99.3 05/09/18 04:00 3.0 05/09/18 04:00 96 05/09/18 00:00 98.0 96 18 133/85 (101) 95 98.0 05/09/18 00:00 3.0 05/09/18 00:00 102 05/08/18 21:00 Nasal Cannula 1.0 Nasal Cannula 2.0 Nasal Cannula 2.0 05/08/18 20:00 93 05/08/18 20:00 98.4 103 19 103/71 (82) 94 98.4 05/08/18 20:00 2.0 05/08/18 19:42 Nasal Cannula 3.0 32 05/08/18 19:34 98 Nasal Cannula 3.0 32 05/08/18 18:01 128/81 05/08/18 16:00 2.0 05/08/18 16:00 100 05/08/18 16:00 97.3 102 18 128/81 (97) 99 97.3 Intake and Output 05/08/18 05/09/18 19:00 07:00 Intake Total 630 ml 120 ml Output Total 350 ml 600 ml Balance 280 ml -480 ml Intake Oral 630 ml 120 ml Output Urine Total 350 ml 600 ml Laboratory Tests 05/09/18 06:05: White Blood Count 14.3H, Red Blood Count 3.18L, Hemoglobin 10.3L, Hematocrit 30.7L, Mean Corpuscular Volume 97, Mean Corpuscular Hemoglobin 32.3H, Mean Corpuscular Hemoglobin Concent 33.5, Red Cell Distribution Width 15.4H, Platelet Count 62L, Mean Platelet Volume 7.4, Neutrophils (%) (Auto) , Lymphocytes (%) (Auto) , Monocytes (%) (Auto) , Eosinophils (%) (Auto) , Basophils (%) (Auto) , Differential Total Cells Counted 100, Neutrophils % ( Manual) 86H, Lymphocytes % (Manual) 7L, Monocytes % (Manual) 5, Eosinophils % ( Manual) 2, Basophils % (Manual) 0, Band Neutrophils 0, Platelet Estimate DecreasedL, Platelet Morphology Normal, Hypochromasia 1+, Anisocytosis 1+, Sodium Level 143, Potassium Level 3.8, Chloride Level 109H, Carbon Dioxide Level 29, Anion Gap 5, Blood Urea Nitrogen 18, Creatinine 1.0, Estimat Glomerular Filtration Rate > 60, Glucose Level 117H, Calcium Level 9.0 Height (Feet): 5 Height (Inches): 9.00 Weight (Pounds): 303 General Appearance: alert, confused Respiratory/Chest: lungs clear, normal breath sounds Abdomen: non tender, soft, distended Krzysztof Gonsalves MD May 09, 2018 13:59
[2018-05-09] MEDS ORDERED: Furosemide 40mg tab ORAL SCH (14:00)
--- NOTE | 2018-05-09 20:38 | General Progress Note ---
Assessment/Plan Assessment/Plan ASSESSMENT AND RECS: 1. Thrombocytopenia, potentially secondary to septic shock and myleosuppresion, severe sepsis, end-organ damage, closely monitor, platelet count downtrending peripheral smear has been reviewed. The patient continues to have lactic acidosis, improved at this time and, in addition, imaging reviewed. --> The patient noted to be with cirrhosis with portal hypertension, expected coagulopathy. --> hepatitis and hiv reviewed and is negative --> report and give Vit K and ffp and inr is elevated --> DC PROTONIX, other drugs also reviewed as well 2. Coagulopathy with portal hypertension, cirrhosis of liver, large volume ascites, requires paracentesis and requires vitamin K and --> vit K prn basis --> on abx, vanc --> as per ID, appreciate their recs 3. Leukocytosis, likely secondary to underlying infection, ulceration seen by surgery, potentially related to underlying sepsis versus other causes such as SBP; but again has been seen by GI team --> s/p paracentesis and prn in the future --> on abx for right lower ext ulceration 4. AGNIESZKA, on IV fluids as needed 5. Acute encephalopathy. 6. Septic shock. Subjective Constitutional: Denies: no symptoms, chills, diaphoresis, fever, malaise, weakness, other HEENT: Denies: no symptoms, eye pain, blurred vision, tearing, double vision, ear pain, ear discharge, nose pain, nose congestion, throat pain, throat swelling, mouth pain, mouth swelling, other Respiratory: Denies: no symptoms, cough, orthopnea, shortness of breath, SOB with excertion, SOB at rest, sputum, stridor, wheezing, other Gastrointestinal/Abdominal: Denies: no symptoms, abdomen distended, abdominal pain, black stools, tarry stools, blood in stool, constipated, diarrhea, difficulty swallowing, nausea, poor appetite, poor fluid intake, rectal bleeding , vomiting, other Genitourinary: Denies: no symptoms, burning, discharge, frequency, flank pain, hematuria, incontinence, pain, urgency, other Neurologic/Psychiatric: Denies: no symptoms, anxiety, depressed, emotional problems, headache, numbness, paresthesia, pre-existing deficit, seizure, tingling, tremors, weakness, other Endocrine: Denies: no symptoms, excessive sweating, flushing, intolerance to cold, intolerance to heat, increased hunger, increased thirst, increased urine, unexplained weight gain, unexplained weight loss, other Hematologic/Lymphatic: Denies: no symptoms, anemia, easy bleeding, easy bruising, other Allergies: Coded Allergies: No Known Allergies (Unverified , 04/29/18) Subjective c diff was positive, on abx Objective Last 24 Hour Vital Signs Date Time Temp Pulse Resp B/P (MAP) Pulse Ox O2 Delivery O2 Flow Rate FiO2 05/09/18 20:18 97.7 104 20 130/90 (103) 100 97.7 05/09/18 20:13 97 Nasal Cannula 3.0 32 05/09/18 20:13 Nasal Cannula 3.0 32 05/09/18 17:07 135/79 05/09/18 16:00 97.0 94 20 135/79 (97) 99 97.0 05/09/18 16:00 89 05/09/18 16:00 3.0 05/09/18 12:37 135/83 05/09/18 12:00 97.2 95 20 135/83 (100) 99 97.2 05/09/18 12:00 3.0 05/09/18 12:00 97 05/09/18 09:55 99 Nasal Cannula 3.0 32 05/09/18 09:55 Nasal Cannula 3.0 32 05/09/18 08:47 Nasal Cannula 3.0 Nasal Cannula 3.0 Nasal Cannula 3.0 05/09/18 08:38 131/82 05/09/18 08:00 97.5 97 20 131/82 (98) 100 97.5 05/09/18 08:00 98 05/09/18 08:00 3.0 05/09/18 04:00 99.3 98 19 132/75 (94) 94 99.3 05/09/18 04:00 3.0 05/09/18 04:00 96 05/09/18 00:00 98.0 96 18 133/85 (101) 95 98.0 05/09/18 00:00 3.0 05/09/18 00:00 102 05/08/18 21:00 Nasal Cannula 1.0 Nasal Cannula 2.0 Nasal Cannula 2.0 Intake and Output 05/08/18 05/09/18 19:00 07:00 Intake Total 630 ml 120 ml Output Total 350 ml 600 ml Balance 280 ml -480 ml Intake Oral 630 ml 120 ml Output Urine Total 350 ml 600 ml Laboratory Tests 05/09/18 06:05: White Blood Count 14.3H, Red Blood Count 3.18L, Hemoglobin 10.3L, Hematocrit 30.7L, Mean Corpuscular Volume 97, Mean Corpuscular Hemoglobin 32.3H, Mean Corpuscular Hemoglobin Concent 33.5, Red Cell Distribution Width 15.4H, Platelet Count 62L, Mean Platelet Volume 7.4, Neutrophils (%) (Auto) , Lymphocytes (%) (Auto) , Monocytes (%) (Auto) , Eosinophils (%) (Auto) , Basophils (%) (Auto) , Differential Total Cells Counted 100, Neutrophils % ( Manual) 86H, Lymphocytes % (Manual) 7L, Monocytes % (Manual) 5, Eosinophils % ( Manual) 2, Basophils % (Manual) 0, Band Neutrophils 0, Platelet Estimate DecreasedL, Platelet Morphology Normal, Hypochromasia 1+, Anisocytosis 1+, Sodium Level 143, Potassium Level 3.8, Chloride Level 109H, Carbon Dioxide Level 29, Anion Gap 5, Blood Urea Nitrogen 18, Creatinine 1.0, Estimat Glomerular Filtration Rate > 60, Glucose Level 117H, Calcium Level 9.0 Height (Feet): 5 Height (Inches): 9.00 Weight (Pounds): 303 General Appearance: no apparent distress EENT: PERRL/EOMI, pharynx normal Neck: normal alignment Cardiovascular: normal rate Respiratory/Chest: lungs clear Abdomen: soft Extremities: non-tender, other - pressure ulceration rle Neurologic: alert Skin: warm/dry Eric Irizarry MD May 09, 2018 20:38
[2018-05-09] MEDS ORDERED: Heparin 5000 units/ml inj SUBQ SCH (21:00)
[2018-05-09] MEDS: Ciprofloxacin 500mg tab ORAL SCH (22:04)
[2018-05-09] MEDS: Augmentin 875mg Tab ORAL SCH (22:04)
--- NOTE | 2018-05-09 22:32 | General Progress Note ---
Assessment/Plan Assessment/Plan Assessment - Cirrhosis - portal HTN / varicies - presumed EtOH hepatitis - some recovery in labs noted - coagulopathy - ascites - s/p tap - sepsis, no SBP on paracentesis fluid - Resp failure - AMS, likely hepatic encephalopathy - hypoglycemia - guarded Recommendation: - continue lactulose - Add Xifaxan - d/c BDZ - follow labs - broad abx - PPI - AFP - negative Subjective Allergies: Coded Allergies: No Known Allergies (Unverified , 04/29/18) Subjective Above noted d/w medical staff assistant out of ICU arousable Objective Last 24 Hour Vital Signs Date Time Temp Pulse Resp B/P (MAP) Pulse Ox O2 Delivery O2 Flow Rate FiO2 05/09/18 20:18 97.7 104 20 130/90 (103) 100 97.7 05/09/18 20:13 97 Nasal Cannula 3.0 32 05/09/18 20:13 Nasal Cannula 3.0 32 05/09/18 17:07 135/79 05/09/18 16:00 97.0 94 20 135/79 (97) 99 97.0 05/09/18 16:00 89 05/09/18 16:00 3.0 05/09/18 12:37 135/83 05/09/18 12:00 97.2 95 20 135/83 (100) 99 97.2 05/09/18 12:00 3.0 05/09/18 12:00 97 05/09/18 09:55 99 Nasal Cannula 3.0 32 05/09/18 09:55 Nasal Cannula 3.0 32 05/09/18 08:47 Nasal Cannula 3.0 Nasal Cannula 3.0 Nasal Cannula 3.0 05/09/18 08:38 131/82 05/09/18 08:00 97.5 97 20 131/82 (98) 100 97.5 05/09/18 08:00 98 05/09/18 08:00 3.0 05/09/18 04:00 99.3 98 19 132/75 (94) 94 99.3 05/09/18 04:00 3.0 05/09/18 04:00 96 05/09/18 00:00 98.0 96 18 133/85 (101) 95 98.0 05/09/18 00:00 3.0 05/09/18 00:00 102 Intake and Output 05/08/18 05/09/18 19:00 07:00 Intake Total 630 ml 120 ml Output Total 350 ml 600 ml Balance 280 ml -480 ml Intake Oral 630 ml 120 ml Output Urine Total 350 ml 600 ml Laboratory Tests 05/09/18 06:05: White Blood Count 14.3H, Red Blood Count 3.18L, Hemoglobin 10.3L, Hematocrit 30.7L, Mean Corpuscular Volume 97, Mean Corpuscular Hemoglobin 32.3H, Mean Corpuscular Hemoglobin Concent 33.5, Red Cell Distribution Width 15.4H, Platelet Count 62L, Mean Platelet Volume 7.4, Neutrophils (%) (Auto) , Lymphocytes (%) (Auto) , Monocytes (%) (Auto) , Eosinophils (%) (Auto) , Basophils (%) (Auto) , Differential Total Cells Counted 100, Neutrophils % ( Manual) 86H, Lymphocytes % (Manual) 7L, Monocytes % (Manual) 5, Eosinophils % ( Manual) 2, Basophils % (Manual) 0, Band Neutrophils 0, Platelet Estimate DecreasedL, Platelet Morphology Normal, Hypochromasia 1+, Anisocytosis 1+, Sodium Level 143, Potassium Level 3.8, Chloride Level 109H, Carbon Dioxide Level 29, Anion Gap 5, Blood Urea Nitrogen 18, Creatinine 1.0, Estimat Glomerular Filtration Rate > 60, Glucose Level 117H, Calcium Level 9.0 Height (Feet): 5 Height (Inches): 9.00 Weight (Pounds): 303 Objective WDWN WM NCAT supple CTA RRR Soft / Obese trace edema sedated Pierre Suggs MD May 09, 2018 22:32
[2018-05-10] VITALS (14 sets, daily range): BP systolic 104–133; BP diastolic 58–85
[2018-05-10] MEDS: Pantoprazole Inj IVP SCH ×2 (06:42→18:24)
[2018-05-10 08:02] LABS: HEMATOCRIT 28.8 % (42.0-52.0); HEMOGLOBIN 9.9 G/DL (14.2-18.0); MEAN CORPUSCULAR VOLUME 95 FL (80-99); PLATELET COUNT 92 K/UL (150-450); RED BLOOD COUNT 3.02 M/UL (4.70-6.10); RED CELL DISTRIBUTION WIDTH 15.4 % (11.6-14.8); WHITE BLOOD COUNT 19.3 K/UL (4.8-10.8)
[2018-05-10 08:13] LABS: AMMONIA 22 umol/L (11-32)
[2018-05-10 08:18] LABS: INR 2.1 (0.9-1.1)
[2018-05-10 08:30] LABS: ALANINE AMINOTRANSFERASE 34 U/L (12-78); ALBUMIN 1.8 G/DL (3.4-5.0); ALBUMIN/GLOBULIN RATIO 0.3 (1.0-2.7); ALKALINE PHOSPHATASE 120 U/L (46-116); ANION GAP 7 mmol/L (5-15); ASPARTATE AMINO TRANSFERASE 45 U/L (15-37); BILIRUBIN,TOTAL 6.2 MG/DL (0.2-1.0); BLOOD UREA NITROGEN 19 mg/dL (7-18); CALCIUM 9.3 MG/DL (8.5-10.1); CARBON DIOXIDE 28 MMOL/L (21-32); CHLORIDE 105 MMOL/L (98-107); CREATININE 1.1 MG/DL (0.55-1.30); POTASSIUM 3.9 MMOL/L (3.5-5.1); SODIUM 140 MMOL/L (136-145)
[2018-05-10 09:05] LABS: ALANINE AMINOTRANSFERASE 36 U/L (12-78); ALBUMIN 1.8 G/DL (3.4-5.0); ALKALINE PHOSPHATASE 124 U/L (46-116); ASPARTATE AMINO TRANSFERASE 46 U/L (15-37); BILIRUBIN,DIRECT 2.2 MG/DL (0.0-0.3); BILIRUBIN,TOTAL 6.2 MG/DL (0.2-1.0)
[2018-05-10] MEDS: Augmentin 875mg Tab ORAL SCH (09:13)
[2018-05-10] MEDS: D5 1/2NS 1,000 ML IV SCH ×2 (09:13→21:02)
[2018-05-10] MEDS: Ciprofloxacin 500mg tab ORAL SCH (09:13)
[2018-05-10] MEDS: Lactulose 20gm/30ml UDC ORAL SCH ×3 (09:13→18:00)
[2018-05-10] MEDS ORDERED: Octreotide Acetate 500 MCG in Sodium Chloride 500ML 499 ML IV SCH (10:00)
[2018-05-10] MEDS ORDERED: Heparin 2000 units/Ns 1000ml INJ PRN (10:15)
[2018-05-10] MEDS ORDERED: Lidocaine 1% Plain 30 ml INJ PRN (10:15)
--- NOTE | 2018-05-10 10:25 | General Progress Note ---
Assessment/Plan Assessment/Plan ASSESSMENT AND RECS: 1. Thrombocytopenia, potentially secondary to septic shock and myleosuppresion, severe sepsis, end-organ damage, closely monitor, platelet count downtrending peripheral smear has been reviewed. The patient continues to have lactic acidosis, improved at this time and, in addition, imaging reviewed. 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 --> hepatitis and hiv reviewed and is negative --> report and give Vit K and ffp and inr is elevated --> DC PROTONIX, other drugs also reviewed as well --> appears baseline in the 50-100k range 2. Coagulopathy with portal hypertension, cirrhosis of liver, large volume ascites, requires paracentesis and requires vitamin K --> vit K prn basis --> on abx, vanc --> as per ID, appreciate their recs 3. Leukocytosis, likely secondary to underlying infection, ulceration seen by surgery, potentially related to underlying sepsis versus other causes such as SBP; but again has been seen by GI team --> s/p paracentesis and prn in the future --> on abx for right lower ext ulceration 4. AGNIESZKA, on IV fluids as needed 5. Acute encephalopathy. 6. Septic shock. --> s/p abx Subjective Constitutional: Denies: no symptoms, chills, diaphoresis, fever, malaise, weakness, other HEENT: Denies: no symptoms, eye pain, blurred vision, tearing, double vision, ear pain, ear discharge, nose pain, nose congestion, throat pain, throat swelling, mouth pain, mouth swelling, other Cardiovascular: Denies: no symptoms, chest pain, edema, irregular heart rate, lightheadedness, palpitations, syncope, other Respiratory: Denies: no symptoms, cough, orthopnea, shortness of breath, SOB with excertion, SOB at rest, sputum, stridor, wheezing, other Gastrointestinal/Abdominal: Denies: no symptoms, abdomen distended, abdominal pain, black stools, tarry stools, blood in stool, constipated, diarrhea, difficulty swallowing, nausea, poor appetite, poor fluid intake, rectal bleeding , vomiting, other Genitourinary: Denies: no symptoms, burning, discharge, frequency, flank pain, hematuria, incontinence, pain, urgency, other Neurologic/Psychiatric: Denies: no symptoms, anxiety, depressed, emotional problems, headache, numbness, paresthesia, pre-existing deficit, seizure, tingling, tremors, weakness, other Endocrine: Denies: no symptoms, excessive sweating, flushing, intolerance to cold, intolerance to heat, increased hunger, increased thirst, increased urine, unexplained weight gain, unexplained weight loss, other Hematologic/Lymphatic: Denies: no symptoms, anemia, easy bleeding, easy bruising, other Allergies: Coded Allergies: No Known Allergies (Unverified , 04/29/18) Subjective c diff positive, on broad spectrum abx Objective Last 24 Hour Vital Signs Date Time Temp Pulse Resp B/P (MAP) Pulse Ox O2 Delivery O2 Flow Rate FiO2 05/10/18 09:13 116/68 05/10/18 08:00 97.7 106 20 116/68 (84) 94 97.7 05/10/18 04:00 105 05/10/18 04:00 3.0 05/10/18 04:00 98.2 112 20 132/80 (97) 96 98.2 05/10/18 00:00 97.9 101 18 133/85 (101) 100 97.9 05/10/18 00:00 3.0 05/10/18 00:00 75 05/09/18 21:00 Nasal Cannula 3.0 Nasal Cannula 3.0 Nasal Cannula 3.0 05/09/18 20:18 97.7 104 20 130/90 (103) 100 97.7 05/09/18 20:13 97 Nasal Cannula 3.0 32 05/09/18 20:13 Nasal Cannula 3.0 32 05/09/18 20:00 101 05/09/18 20:00 3.0 05/09/18 17:07 135/79 05/09/18 16:00 97.0 94 20 135/79 (97) 99 97.0 05/09/18 16:00 89 05/09/18 16:00 3.0 05/09/18 12:37 135/83 05/09/18 12:00 97.2 95 20 135/83 (100) 99 97.2 05/09/18 12:00 3.0 05/09/18 12:00 97 Intake and Output 05/09/18 05/10/18 19:00 07:00 Intake Total 290 ml Output Total 400 ml 600 ml Balance -110 ml -600 ml Intake Oral 290 ml Output Urine Total 400 ml 300 ml Emesis 300 ml # Bowel Movements 1 Laboratory Tests 05/10/18 06:35: White Blood Count 19.3H, Red Blood Count 3.02L, Hemoglobin 9.9L, Hematocrit 28.8L, Mean Corpuscular Volume 95, Mean Corpuscular Hemoglobin 32.8H, Mean Corpuscular Hemoglobin Concent 34.3, Red Cell Distribution Width 15.4H, Platelet Count 92L, Mean Platelet Volume 7.3, Neutrophils (%) (Auto) , Lymphocytes (%) (Auto) , Monocytes (%) (Auto) , Eosinophils (%) (Auto) , Basophils (%) (Auto) , Neutrophils % (Manual) [Pending], Lymphocytes % (Manual) [Pending], Platelet Estimate [Pending], Platelet Morphology [Pending], Prothrombin Time 20.9H, Prothromb Time International Ratio 2.1H, Sodium Level 140, Potassium Level 3.9, Chloride Level 105, Carbon Dioxide Level 28, Anion Gap 7, Blood Urea Nitrogen 19H, Creatinine 1.1, Estimat Glomerular Filtration Rate > 60, Glucose Level 123H, Calcium Level 9.3, Total Bilirubin 6.2H, Direct Bilirubin 2.2H, Aspartate Amino Transf (AST/SGOT) 45H, Alanine Aminotransferase (ALT/SGPT) 34, Alkaline Phosphatase 120H, Ammonia 22, Total Protein 7.3, Albumin 1.8L, Globulin 5.5, Albumin/Globulin Ratio 0.3L Height (Feet): 5 Height (Inches): 9.00 Weight (Pounds): 305 General Appearance: no apparent distress EENT: PERRL/EOMI Neck: normal alignment Cardiovascular: regular rhythm Respiratory/Chest: lungs clear Abdomen: normal bowel sounds Extremities: non-tender Neurologic: oriented x 3 Skin: normal pigmentation Eric Irizarry MD May 10, 2018 10:25
--- NOTE | 2018-05-10 10:49 | Diagnostic Imaging Report ---
Indication: Cough Technique: One view of the chest Comparison: 05/08/2018 Findings: Interim improvement but persistence of previously demonstrated interstitial edema. There is some blunting of the right costophrenic sulcus, likely a small amount of pleural fluid. No new infiltrates. Heart size is normal Impression: Improved but persistent pulmonary interstitial edema, over 2 days Possible small right pleural effusion
--- NOTE | 2018-05-10 11:57 | General Progress Note ---
Assessment/Plan Assessment/Plan Assessment - UGIB - Cirrhosis - portal HTN / varicies - presumed EtOH hepatitis - some recovery in labs noted - coagulopathy - ascites - s/p tap - sepsis, no SBP on paracentesis fluid - Resp failure - AMS, likely hepatic encephalopathy - hypoglycemia - guarded Recommendation: - NPO/IVF - Sandostatin - continue lactulose - Xifaxan - follow labs - broad abx - PPI - EGD today - FFP transfusion - Await emergency PICC line Subjective Allergies: Coded Allergies: No Known Allergies (Unverified , 04/29/18) Subjective Above noted d/w rn staffing started vomiting BRB today no abd pain Objective Last 24 Hour Vital Signs Date Time Temp Pulse Resp B/P (MAP) Pulse Ox O2 Delivery O2 Flow Rate FiO2 05/10/18 09:13 116/68 05/10/18 09:00 Room Air Room Air Room Air 05/10/18 08:00 97.7 106 20 116/68 (84) 94 97.7 05/10/18 04:00 105 05/10/18 04:00 3.0 05/10/18 04:00 98.2 112 20 132/80 (97) 96 98.2 05/10/18 00:00 97.9 101 18 133/85 (101) 100 97.9 05/10/18 00:00 3.0 05/10/18 00:00 75 05/09/18 21:00 Nasal Cannula 3.0 Nasal Cannula 3.0 Nasal Cannula 3.0 05/09/18 20:18 97.7 104 20 130/90 (103) 100 97.7 05/09/18 20:13 97 Nasal Cannula 3.0 32 05/09/18 20:13 Nasal Cannula 3.0 32 05/09/18 20:00 101 05/09/18 20:00 3.0 05/09/18 17:07 135/79 05/09/18 16:00 97.0 94 20 135/79 (97) 99 97.0 05/09/18 16:00 89 05/09/18 16:00 3.0 05/09/18 12:37 135/83 05/09/18 12:00 97.2 95 20 135/83 (100) 99 97.2 05/09/18 12:00 3.0 05/09/18 12:00 97 Intake and Output 05/09/18 05/10/18 19:00 07:00 Intake Total 290 ml Output Total 400 ml 600 ml Balance -110 ml -600 ml Intake Oral 290 ml Output Urine Total 400 ml 300 ml Emesis 300 ml # Bowel Movements 1 Laboratory Tests 05/10/18 06:35: White Blood Count 19.3H, Red Blood Count 3.02L, Hemoglobin 9.9L, Hematocrit 28.8L, Mean Corpuscular Volume 95, Mean Corpuscular Hemoglobin 32.8H, Mean Corpuscular Hemoglobin Concent 34.3, Red Cell Distribution Width 15.4H, Platelet Count 92L, Mean Platelet Volume 7.3, Neutrophils (%) (Auto) , Lymphocytes (%) (Auto) , Monocytes (%) (Auto) , Eosinophils (%) (Auto) , Basophils (%) (Auto) , Differential Total Cells Counted 100, Neutrophils % ( Manual) 96H, Lymphocytes % (Manual) 3L, Monocytes % (Manual) 1, Eosinophils % ( Manual) 0, Basophils % (Manual) 0, Band Neutrophils 0, Platelet Estimate DecreasedL, Platelet Morphology Normal, Hypochromasia 2+, Anisocytosis 1+, Prothrombin Time 20.9H, Prothromb Time International Ratio 2.1H, Sodium Level 140, Potassium Level 3.9, Chloride Level 105, Carbon Dioxide Level 28, Anion Gap 7, Blood Urea Nitrogen 19H, Creatinine 1.1, Estimat Glomerular Filtration Rate > 60, Glucose Level 123H, Calcium Level 9.3, Total Bilirubin 6.2H, Direct Bilirubin 2.2H, Aspartate Amino Transf (AST/SGOT) 45H, Alanine Aminotransferase (ALT/SGPT) 34, Alkaline Phosphatase 120H, Ammonia 22, Total Protein 7.3, Albumin 1.8L, Globulin 5.5, Albumin/Globulin Ratio 0.3L Height (Feet): 5 Height (Inches): 9.00 Weight (Pounds): 305 Objective WDWN WM NCAT supple CTA RRR Soft / Obese trace edema sedated Pierre Suggs MD May 10, 2018 11:57
--- NOTE | 2018-05-10 13:10 | General Progress Note ---
Assessment/Plan Assessment/Plan Septic Shock due to Providencia bacteremia, on oral antibiotics as he lost IV access Hematemesis, could be variceal bleeding, continue Protonix and octreotide per GI recs. EGD today. Acute hypoxic respiratory failure, stable respiratory status. Decompensated cirrhosis, s/p 6 liter paracentesis, continue rifaximin and lactulose. AGNIESZKA due to ATN from sepsis and hypotension, resolved. Acute metabolic encephalopathy, continue supportive measures Thrombocytopenia, multifactorial from ESLD, bone marrow suppression from septic shock, platelet counts improving. LE ulcerations, Surgery following for wound care, no evidence of cellulitis Diarrhea, check stool for C. diff DVT Prophylaxis Venodynes Subjective Date patient seen: May 10, 2018 ROS Limited/Unobtainable: Yes Allergies: Coded Allergies: No Known Allergies (Unverified , 04/29/18) Subjective Medical followup for multiple medical conditions including septic shock, acute hypoxic respiratory failure, decompensated cirrhosis, AGNIESZKA. Unable to obtain ROS from patient due to confusion. Overnight he had hematemesis, started on PPI and octreotide, GI plans EGD today. Objective Last 24 Hour Vital Signs Date Time Temp Pulse Resp B/P (MAP) Pulse Ox O2 Delivery O2 Flow Rate FiO2 05/10/18 12:05 97.3 101 20 124/66 (85) 94 97.3 05/10/18 12:00 99 05/10/18 11:50 97.2 99 20 104/61 (75) 94 97.2 05/10/18 09:13 116/68 05/10/18 09:00 Room Air Room Air Room Air 05/10/18 08:00 97.7 106 20 116/68 (84) 94 97.7 05/10/18 08:00 102 05/10/18 04:00 105 05/10/18 04:00 3.0 05/10/18 04:00 98.2 112 20 132/80 (97) 96 98.2 05/10/18 00:00 97.9 101 18 133/85 (101) 100 97.9 05/10/18 00:00 3.0 05/10/18 00:00 75 05/09/18 21:00 Nasal Cannula 3.0 Nasal Cannula 3.0 Nasal Cannula 3.0 05/09/18 20:18 97.7 104 20 130/90 (103) 100 97.7 05/09/18 20:13 97 Nasal Cannula 3.0 32 05/09/18 20:13 Nasal Cannula 3.0 32 05/09/18 20:00 101 05/09/18 20:00 3.0 05/09/18 17:07 135/79 05/09/18 16:00 97.0 94 20 135/79 (97) 99 97.0 05/09/18 16:00 89 05/09/18 16:00 3.0 Intake and Output 05/09/18 05/10/18 19:00 07:00 Intake Total 290 ml Output Total 400 ml 600 ml Balance -110 ml -600 ml Intake Oral 290 ml Output Urine Total 400 ml 300 ml Emesis 300 ml # Bowel Movements 1 Laboratory Tests 05/10/18 06:35: White Blood Count 19.3H, Red Blood Count 3.02L, Hemoglobin 9.9L, Hematocrit 28.8L, Mean Corpuscular Volume 95, Mean Corpuscular Hemoglobin 32.8H, Mean Corpuscular Hemoglobin Concent 34.3, Red Cell Distribution Width 15.4H, Platelet Count 92L, Mean Platelet Volume 7.3, Neutrophils (%) (Auto) , Lymphocytes (%) (Auto) , Monocytes (%) (Auto) , Eosinophils (%) (Auto) , Basophils (%) (Auto) , Differential Total Cells Counted 100, Neutrophils % ( Manual) 96H, Lymphocytes % (Manual) 3L, Monocytes % (Manual) 1, Eosinophils % ( Manual) 0, Basophils % (Manual) 0, Band Neutrophils 0, Platelet Estimate DecreasedL, Platelet Morphology Normal, Hypochromasia 2+, Anisocytosis 1+, Prothrombin Time 20.9H, Prothromb Time International Ratio 2.1H, Sodium Level 140, Potassium Level 3.9, Chloride Level 105, Carbon Dioxide Level 28, Anion Gap 7, Blood Urea Nitrogen 19H, Creatinine 1.1, Estimat Glomerular Filtration Rate > 60, Glucose Level 123H, Calcium Level 9.3, Total Bilirubin 6.2H, Direct Bilirubin 2.2H, Aspartate Amino Transf (AST/SGOT) 45H, Alanine Aminotransferase (ALT/SGPT) 34, Alkaline Phosphatase 120H, Ammonia 22, Total Protein 7.3, Albumin 1.8L, Globulin 5.5, Albumin/Globulin Ratio 0.3L Height (Feet): 5 Height (Inches): 9.00 Weight (Pounds): 305 General Appearance: alert, lethargic Neck: non-tender Cardiovascular: normal rate, regular rhythm Respiratory/Chest: normal breath sounds, no respiratory distress Abdomen: normal bowel sounds, non tender, soft Krzysztof Gonsalves MD May 10, 2018 13:10
--- NOTE | 2018-05-10 14:25 | Infectious Diseases Prog Note ---
Assessment/Plan Assessment/Plan ASSESSMENT AND PLAN: 1. sepsis, shock, providencia bacteremia, mrsa pna, mrsa/proteus right leg wound infection, right leg cellulitis, gib, leukocytosis, fevers s/p bronchoscopy, sc-yeast, fungemia risk, leukocytosis worse, chest x-ray better, fevers resolved - vancomycin and zosyn, diflucan for fungemia coverage - monitor labs and chest x-ray, f/u cultures - off vent - off pressors - surveillance blood cultures negative - chest x-ray better - for endoscopy 2. Liver cirrhosis. 3. Portal hypertension. 4. Ascites. 5. Anemia. 6. Thrombocytopenia. 7. Respiratory failure. 8. Low blood pressure. 9. Sepsis, shock. 10. Varices. 11. ETOH hepatitis. 12. Coagulopathy. 13. Altered mental status 14. hepatic encephalopathy 15. Past medical history noted. 16. He has no known allergies. 17. Social history is presumptively I think positive for ETOH. Cannot assess smoking or IV drug abuse. 18. Family history is noncontributory. 19. MAR was noted. 20. Case discussed with RN. 21. ICU care. 22. Case discussed with Dr. Rasmussen. 23. Continue treatment per primary consultants. 24. Poor prognosis. 25. Orders were entered and noted. 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 Subjective Constitutional: Denies: fever HEENT: Reports: congestion - mild Respiratory: Reports: shortness of breath - mild Cardiovascular: Denies: chest pain Gastrointestinal/Abdominal: Reports: other - hematemesis ; Denies: nausea, vomiting, diarrhea Genitourinary: Reports: other - + grimm Psychiatric: Denies: depression Skin: Denies: rash Hematologic: Reports: no symptoms Musculoskeletal: Denies: pain Allergies: Coded Allergies: No Known Allergies (Unverified , 04/29/18) Objective Vital Signs Last 24 Hour Vital Signs Date Time Temp Pulse Resp B/P (MAP) Pulse Ox O2 Delivery O2 Flow Rate FiO2 05/10/18 13:08 97.9 101 20 128/73 (91) 94 97.9 05/10/18 12:43 97.3 100 20 124/64 (84) 94 97.3 05/10/18 12:05 97.3 101 20 124/66 (85) 94 97.3 05/10/18 12:00 99 05/10/18 11:50 97.2 99 20 104/61 (75) 94 97.2 05/10/18 10:00 Room Air 21 05/10/18 10:00 95 Room Air 21 05/10/18 09:13 116/68 05/10/18 09:00 Room Air Room Air Room Air 05/10/18 08:00 97.7 106 20 116/68 (84) 94 97.7 05/10/18 08:00 102 05/10/18 04:00 105 05/10/18 04:00 3.0 05/10/18 04:00 98.2 112 20 132/80 (97) 96 98.2 05/10/18 00:00 97.9 101 18 133/85 (101) 100 97.9 05/10/18 00:00 3.0 05/10/18 00:00 75 05/09/18 21:00 Nasal Cannula 3.0 Nasal Cannula 3.0 Nasal Cannula 3.0 05/09/18 20:18 97.7 104 20 130/90 (103) 100 97.7 05/09/18 20:13 97 Nasal Cannula 3.0 32 05/09/18 20:13 Nasal Cannula 3.0 32 05/09/18 20:00 101 05/09/18 20:00 3.0 05/09/18 17:07 135/79 05/09/18 16:00 97.0 94 20 135/79 (97) 99 97.0 05/09/18 16:00 89 05/09/18 16:00 3.0 Height (Feet): 5 Height (Inches): 9.00 Weight (Pounds): 305 General Appearance: no acute distress HEENT: normocephalic, atraumatic, PERRL, EOMI, supple, other - + icterus Respiratory/Chest: crackles/rales, rhonchi - bilaterally Cardiovascular: normal rate, regular rhythm, no gallop/murmur, no JVD Abdomen: normal bowel sounds, soft, non tender, no organomegaly, non distended Genitourinary: other - + grimm - urine clear Extremities: no cyanosis Skin: no rash Neurologic/Psychiatric: alert, responsive Lymphatic: no neck adenopathy Musculoskeletal: no effusion Objective Procedure: XRAY Chest 1v 05/01 - chest x-ray - INDICATION: Infection COMPARISON: Chest x-ray dated 04/30/18 FINDINGS: Single frontal view demonstrates a normal cardiomediastinal silhouette. Right internal jugular, grossly unchanged. Nasogastric tube in gastric cavity. Endotracheal tube 5 cm above the pamela. Increasing opacity in bilateral mid to lower lung zones. No pleural effusions. The visualized osseous structures are within normal limits. IMPRESSION: Stable tubes and lines as outlined above. Increasing opacity in bilateral mid to lower lung zones. CT imaging noted - reports noted 05/03/18 - Chest x-ray - Findings: Patchy, heterogeneous airspace opacities and interstitial opacities identified. Heart is stable. Tubes and lines are stable. IMPRESSION: Patchy lung disease likely on the basis of pulmonary edema. Infiltrates not excluded. Chest x-ray - 05/08 - FINDINGS: Lungs: Low lung volumes, which may be related to shallow inspiration. Bilateral perihilar opacities with diffuse patchy pulmonary opacities, suggesting pulmonary edema. Pleural space: Unremarkable. The costophrenic angles are sharp. No visible pneumothorax. Heart: Unremarkable. No cardiomegaly. Mediastinum: Unremarkable. Bones/joints: Unremarkable. IMPRESSION: 1. Low lung volumes, which may be related to shallow inspiration. 2. Bilateral perihilar opacities with diffuse patchy pulmonary opacities, suggesting pulmonary edema. Cannot exclude an underlying pneumonia. Chest x-ray - 05/10/18 Comparison: 05/08/2018 Findings: Interim improvement but persistence of previously demonstrated interstitial edema. There is some blunting of the right costophrenic sulcus, likely a small amount of pleural fluid. No new infiltrates. Heart size is normal Impression: Improved but persistent pulmonary interstitial edema, over 2 days Possible small right pleural effusion Microbiology Date/Time Source Procedure Growth Status 05/06/18 18:00 Blood Blood Culture - Preliminary NO GROWTH AFTER 72 HOURS Resulted 05/03/18 15:35 Ascities Fluid Gram Stain - Final Complete 05/03/18 15:35 Ascities Fluid Body Fluid Culture - Final NO GROWTH Complete 04/30/18 04:00 Wound Gram Stain - Final Complete 04/30/18 04:00 Wound Culture - Final Proteus Mirabilis Staphylococcus Aureus - Mrsa Complete 05/06/18 15:00 Bronchial Washings Not Specified Gram Stain - Final Complete 05/06/18 15:00 Bronchial Aspirate Culture - Final Mariah Albicans Mariah Dubliniensis Complete 05/04/18 05:00 Stool Clostridium difficile Toxin Assay - Final Complete 04/29/18 17:00 Rectum VRE Culture - Final Enterococcus Faecalis - Vre Complete Laboratory Tests Test 05/10/18 06:35 White Blood Count 19.3 K/UL (4.8-10.8) H Red Blood Count 3.02 M/UL (4.70-6.10) L Hemoglobin 9.9 G/DL (14.2-18.0) L Hematocrit 28.8 % (42.0-52.0) L Mean Corpuscular Volume 95 FL (80-99) Mean Corpuscular Hemoglobin 32.8 PG (27.0-31.0) H Mean Corpuscular Hemoglobin Concent 34.3 G/DL (32.0-36.0) Red Cell Distribution Width 15.4 % (11.6-14.8) H Platelet Count 92 K/UL (150-450) L Mean Platelet Volume 7.3 FL (6.5-10.1) Neutrophils (%) (Auto) % (45.0-75.0) Lymphocytes (%) (Auto) % (20.0-45.0) Monocytes (%) (Auto) % (1.0-10.0) Eosinophils (%) (Auto) % (0.0-3.0) Basophils (%) (Auto) % (0.0-2.0) Differential Total Cells Counted 100 Neutrophils % (Manual) 96 % (45-75) H Lymphocytes % (Manual) 3 % (20-45) L Monocytes % (Manual) 1 % (1-10) Eosinophils % (Manual) 0 % (0-3) Basophils % (Manual) 0 % (0-2) Band Neutrophils 0 % (0-8) Platelet Estimate Decreased L Platelet Morphology Normal Hypochromasia 2+ Anisocytosis 1+ Prothrombin Time 20.9 SEC (9.30-11.50) H Prothromb Time International Ratio 2.1 (0.9-1.1) H Sodium Level 140 MMOL/L (136-145) Potassium Level 3.9 MMOL/L (3.5-5.1) Chloride Level 105 MMOL/L (98-107) Carbon Dioxide Level 28 MMOL/L (21-32) Anion Gap 7 mmol/L (5-15) Blood Urea Nitrogen 19 mg/dL (7-18) H Creatinine 1.1 MG/DL (0.55-1.30) Estimat Glomerular Filtration Rate > 60 mL/min (>60) Glucose Level 123 MG/DL (74-106) H Calcium Level 9.3 MG/DL (8.5-10.1) Total Bilirubin 6.2 MG/DL (0.2-1.0) H Direct Bilirubin 2.2 MG/DL (0.0-0.3) H Aspartate Amino Transf (AST/SGOT) 45 U/L (15-37) H Alanine Aminotransferase (ALT/SGPT) 34 U/L (12-78) Alkaline Phosphatase 120 U/L (46-116) H Ammonia 22 umol/L (11-32) Total Protein 7.3 G/DL (6.4-8.2) Albumin 1.8 G/DL (3.4-5.0) L Globulin 5.5 g/dL Albumin/Globulin Ratio 0.3 (1.0-2.7) L Current Medications Medications (Trade) Dose Ordered Sig/Ry Route PRN Reason Start Time Stop Time Status Last Admin Dose Admin Amoxicillin/ Clavulanate Potassium (Augmentin) 875 mg EVERY 12 HOURS ORAL 05/09/18 21:00 05/16/18 20:59 05/10/18 09:13 Chlorhexidine Gluconate (Fatemeh-Hex 2%) 1 applic DAILY@2000 TOPIC 05/10/18 20:00 06/09/18 19:59 Ciprofloxacin (Cipro 500mg tab) 500 mg EVERY 12 HOURS ORAL 05/09/18 21:00 05/16/18 20:59 05/10/18 09:13 Dextrose/Sodium Chloride 1,000 ml @ 75 mls/hr [id number] IV 05/10/18 09:00 06/09/18 08:59 05/10/18 09:13 Heparin Sodium/ Sodium Chloride (Heparin 2000 units/Ns 1000ml premix) 2,000 unit ONCE PRN INJ PICC PLACEMENT 05/10/18 10:15 05/11/18 23:59 Lactulose (Cephulac) 20 gm THREE TIMES A DAY ORAL 05/08/18 09:00 05/30/18 12:59 05/10/18 09:13 Lidocaine HCl (Xylocaine 1% 30ml) 30 ml ONCE PRN INJ PICC PLACEMENT 05/10/18 10:15 05/11/18 23:59 Linezolid (Zyvox) 600 mg EVERY 12 HOURS ORAL 05/10/18 21:00 05/15/18 20:59 UNV Octreotide Acetate 500 mcg/ Sodium Chloride 500 ml @ 50 mls/hr Q10H IV 05/10/18 10:00 06/09/18 09:59 05/10/18 10:28 Ondansetron HCl (Zofran) 4 mg Q6H PRN IVP Nausea & Vomiting 05/10/18 01:30 06/09/18 01:29 05/10/18 01:29 Pantoprazole (Protonix) 40 mg Q12H IVP 05/10/18 07:00 06/09/18 06:59 05/10/18 06:42 Pentoxifylline (TRENtal) 400 mg THREE TIMES A DAY ORAL 05/07/18 18:00 05/31/18 08:59 05/10/18 09:13 Rifaximin (Xifaxan) 550 mg EVERY 12 HOURS ORAL 05/09/18 22:30 05/16/18 22:29 05/10/18 09:13 Doris Ramos MD May 10, 2018 14:25
[2018-05-10] MEDS ORDERED: Midazolam 2mg/2ml Inj ONE (14:53)
[2018-05-10] MEDS ORDERED: NS 500ML IVPB ONE (15:15)
--- NOTE | 2018-05-10 15:17 | General Progress Note ---
Assessment/Plan Status: stable Assessment/Plan encephalopathy due to [facility] agitation seroquel prn provided ro/st Subjective Date patient seen: May 10, 2018 Neurologic/Psychiatric: Reports: anxiety, depressed, emotional problems Allergies: Coded Allergies: No Known Allergies (Unverified , 04/29/18) Objective Last 24 Hour Vital Signs Date Time Temp Pulse Resp B/P (MAP) Pulse Ox O2 Delivery O2 Flow Rate FiO2 05/10/18 13:08 97.9 101 20 128/73 (91) 94 97.9 05/10/18 12:43 97.3 100 20 124/64 (84) 94 97.3 05/10/18 12:05 97.3 101 20 124/66 (85) 94 97.3 05/10/18 12:00 99 05/10/18 11:50 97.2 99 20 104/61 (75) 94 97.2 05/10/18 10:00 Room Air 21 05/10/18 10:00 95 Room Air 21 05/10/18 09:13 116/68 05/10/18 09:00 Room Air Room Air Room Air 05/10/18 08:00 97.7 106 20 116/68 (84) 94 97.7 05/10/18 08:00 102 05/10/18 04:00 105 05/10/18 04:00 3.0 05/10/18 04:00 98.2 112 20 132/80 (97) 96 98.2 05/10/18 00:00 97.9 101 18 133/85 (101) 100 97.9 05/10/18 00:00 3.0 05/10/18 00:00 75 05/09/18 21:00 Nasal Cannula 3.0 Nasal Cannula 3.0 Nasal Cannula 3.0 05/09/18 20:18 97.7 104 20 130/90 (103) 100 97.7 05/09/18 20:13 97 Nasal Cannula 3.0 32 05/09/18 20:13 Nasal Cannula 3.0 32 05/09/18 20:00 101 05/09/18 20:00 3.0 05/09/18 17:07 135/79 05/09/18 16:00 97.0 94 20 135/79 (97) 99 97.0 05/09/18 16:00 89 9/17/18 16:00 3.0 Intake and Output 05/09/18 05/10/18 19:00 07:00 Intake Total 290 ml Output Total 400 ml 600 ml Balance -110 ml -600 ml Intake Oral 290 ml Output Urine Total 400 ml 300 ml Emesis 300 ml # Bowel Movements 1 Laboratory Tests 05/10/18 06:35: White Blood Count 19.3H, Red Blood Count 3.02L, Hemoglobin 9.9L, Hematocrit 28.8L, Mean Corpuscular Volume 95, Mean Corpuscular Hemoglobin 32.8H, Mean Corpuscular Hemoglobin Concent 34.3, Red Cell Distribution Width 15.4H, Platelet Count 92L, Mean Platelet Volume 7.3, Neutrophils (%) (Auto) , Lymphocytes (%) (Auto) , Monocytes (%) (Auto) , Eosinophils (%) (Auto) , Basophils (%) (Auto) , Differential Total Cells Counted 100, Neutrophils % ( Manual) 96H, Lymphocytes % (Manual) 3L, Monocytes % (Manual) 1, Eosinophils % ( Manual) 0, Basophils % (Manual) 0, Band Neutrophils 0, Platelet Estimate DecreasedL, Platelet Morphology Normal, Hypochromasia 2+, Anisocytosis 1+, Prothrombin Time 20.9H, Prothromb Time International Ratio 2.1H, Sodium Level 140, Potassium Level 3.9, Chloride Level 105, Carbon Dioxide Level 28, Anion Gap 7, Blood Urea Nitrogen 19H, Creatinine 1.1, Estimat Glomerular Filtration Rate > 60, Glucose Level 123H, Calcium Level 9.3, Total Bilirubin 6.2H, Direct Bilirubin 2.2H, Aspartate Amino Transf (AST/SGOT) 45H, Alanine Aminotransferase (ALT/SGPT) 34, Alkaline Phosphatase 120H, Ammonia 22, Total Protein 7.3, Albumin 1.8L, Globulin 5.5, Albumin/Globulin Ratio 0.3L Height (Feet): 5 Height (Inches): 9.00 Weight (Pounds): 305 General Appearance: no apparent distress, lethargic, confused Chava Rivas MD May 10, 2018 15:17
--- NOTE | 2018-05-10 15:38 | Pre-Procedure Note/Attestation ---
Pre-Procedure Note/Attestation Complete Prior to Procedure Planned Procedure: not applicable Procedure Narrative: EGD Attestation I attest that I was not able to discuss the nature of the procedure; its benefits; risks and complications; and alternatives (and the risks and benefits of such alternatives), prior to the procedure, with the patient since encephalopathic, or the patient's legal congressional representative (no willing next of kin available). I attest that I re-evaluated the patient just prior to the surgery and that there has been no change in the patient's H&P, except as documented below: Pierre Suggs MD May 10, 2018 15:38
--- NOTE | 2018-05-10 16:12 | Endoscopy Procedure Note ---
Endoscopy Procedure Note General Indication for Procedure: UGIB Procedures Performed: EGD Operative Findings/Diagnosis: erosive gastritis Specimen: none Pt Tolerated Procedure Well: Yes Estimated Blood Loss: minimal Anesthesia Anesthesiologist: see report Anesthesia: MAC Medications Medication Given: see anesthesia record Inserted Devices Implant(s) used?: No GI Core Measures 50 yrs or older w/o bx or poly: Not Applicable 10yrs. F/U not recommended: Not Applicable If not recommended, why?: Pierre Suggs MD May 10, 2018 16:12
--- NOTE | 2018-05-10 16:13 | Brief Operative Note ---
Immediate Post Operative Note Operative Note Chief Complaint: UGIB Pre-op Diagnosis: UGIB Procedure: EGD injection of cc 1:[id number] epi Post-op Diagnosis: erosive gastritis Surgeon: eitan Anesthesiologist: see report Anesthesia: MAC Specimen: none Complications: none Condition: stable Fluids: recorded Estimated Blood Loss: none Drains: none Implant(s) used?: No Pierre Suggs MD May 10, 2018 16:13
--- NOTE | 2018-05-10 16:35 | Anethesia Preoperative Eval ---
Anesthesia Pre-op PMH/ROS General Date of Evaluation: May 10, 2018 Time of Evaluation: 15:20 Anesthesiologist: Mendoza ASA Score: ASA 3 Mallampati Score Class I : Soft palate, uvula, fauces, pillars visible Class II: Soft palate, uvula, fauces visible Class III: Soft palate, base of uvula visible Class IV: Only hard plate visible Mallampati Classification: Class III Surgeon: Naila Diagnosis: Gi Bleed Surgical Procedure: EGD Anesthesia History: none Social History: smoking - h/o, alcohol use - h/o abuse Family History: no anesthesia problems Allergies: Coded Allergies: No Known Allergies (Unverified , 04/29/18) Past Medical History Cardiovascular: Reports: HTN; Denies: CAD, CO, valve dz, arrhythmia, other Pulmonary: Reports: CHANO, other - respiratory failure; Denies: asthma, COPD Gastrointestinal/Genitourinary: Reports: GERD, CRI, other - Liver cirrosis ; Denies: ESRD Neurologic/Psychiatric: Reports: depression/anxiety, other - hepatic encephalopathy; Denies: dementia, CVA, TIA Endocrine: Denies: DM, hypothyroidism, steroids, other HEENT: Denies: cataract (L), cataract (R), glaucoma, [place] (L), [place] (R), other Hematology/Immune: Reports: anemia, bleeding disorder - thrompopenia; Denies: DVT, other Musculoskeletal/Integumentary: Reports: edema Other: obesity PMH Narrative: as above PSxH Narrative: see H&P Anesthesia Pre-op Phys. Exam Physician Exam Last Vital Signs Date Time Temp Pulse Resp B/P (MAP) Pulse Ox O2 Delivery O2 Flow Rate FiO2 05/10/18 13:08 97.9 101 20 128/73 (91) 94 97.9 05/10/18 10:00 Room Air 21 05/10/18 04:00 3.0 Constitutional: other - Dyspnea at rest Neurologic: CN 2-12 intact - unabvle to obtaine Cardiovascular: other - tachycardic Respiratory: other - some wheezing and rhonki bylaterally Gastrointestinal: other - morbid obesity Airway Exam Mallampati Score: Class III Neck: stiff ROM: limited Teeth: missing Anesthesia Pre-op A/P Labs Hematology Test 05/10/18 06:35 White Blood Count 19.3 K/UL (4.8-10.8) H Red Blood Count 3.02 M/UL (4.70-6.10) L Hemoglobin 9.9 G/DL (14.2-18.0) L Hematocrit 28.8 % (42.0-52.0) L Mean Corpuscular Volume 95 FL (80-99) Mean Corpuscular Hemoglobin 32.8 PG (27.0-31.0) H Mean Corpuscular Hemoglobin Concent 34.3 G/DL (32.0-36.0) Red Cell Distribution Width 15.4 % (11.6-14.8) H Platelet Count 92 K/UL (150-450) L Mean Platelet Volume 7.3 FL (6.5-10.1) Neutrophils (%) (Auto) % (45.0-75.0) Lymphocytes (%) (Auto) % (20.0-45.0) Monocytes (%) (Auto) % (1.0-10.0) Eosinophils (%) (Auto) % (0.0-3.0) Basophils (%) (Auto) % (0.0-2.0) Differential Total Cells Counted 100 Neutrophils % (Manual) 96 % (45-75) H Lymphocytes % (Manual) 3 % (20-45) L Monocytes % (Manual) 1 % (1-10) Eosinophils % (Manual) 0 % (0-3) Basophils % (Manual) 0 % (0-2) Band Neutrophils 0 % (0-8) Platelet Estimate Decreased L Platelet Morphology Normal Hypochromasia 2+ Anisocytosis 1+ Coagulation Test 05/10/18 06:35 Prothrombin Time 20.9 SEC (9.30-11.50) H Prothromb Time International Ratio 2.1 (0.9-1.1) H Chemistry Test 05/10/18 06:35 Sodium Level 140 MMOL/L (136-145) Potassium Level 3.9 MMOL/L (3.5-5.1) Chloride Level 105 MMOL/L (98-107) Carbon Dioxide Level 28 MMOL/L (21-32) Anion Gap 7 mmol/L (5-15) Blood Urea Nitrogen 19 mg/dL (7-18) H Creatinine 1.1 MG/DL (0.55-1.30) Estimat Glomerular Filtration Rate > 60 mL/min (>60) Glucose Level 123 MG/DL (74-106) H Calcium Level 9.3 MG/DL (8.5-10.1) Total Bilirubin 6.2 MG/DL (0.2-1.0) H Direct Bilirubin 2.2 MG/DL (0.0-0.3) H Aspartate Amino Transf (AST/SGOT) 45 U/L (15-37) H Alanine Aminotransferase (ALT/SGPT) 34 U/L (12-78) Alkaline Phosphatase 120 U/L (46-116) H Ammonia 22 umol/L (11-32) Total Protein 7.3 G/DL (6.4-8.2) Albumin 1.8 G/DL (3.4-5.0) L Globulin 5.5 g/dL Albumin/Globulin Ratio 0.3 (1.0-2.7) L Risk Assessment & Plan Assessment: ASA3 Plan: MAC Status Change Before Surgery: No Pre-Antibiotics Drug: none Sameer Donaldson MD May 10, 2018 16:35
--- NOTE | 2018-05-10 16:39 | Immediate Post-Op Evaluation ---
Immediate Post-Op Evalulation Immediate Post-Op Evalulation Procedure: EGD with epinephrin injection Date of Evaluation: May 10, 2018 Time of Evaluation: 16:36 IV Fluids: 300 Blood Products: none Estimated Blood Loss: Some blood clots and liquid blood evacuated from the stomach Urinary Output: none Blood Pressure Systolic: 122 Blood Pressure Diastolic: 68 Pulse Rate: 98 Respiratory Rate: 24 O2 Sat by Pulse Oximetry: 98 Temperature (Fahrenheit): 97.8 Pain Score (1-10): 2 Nausea: No Vomiting: No Complications none Patient Status: reacts Hydration Status: adequate Sameer Donaldson MD May 10, 2018 16:39
--- NOTE | 2018-05-10 16:41 | 48 Hour Post Anesthesia Eval ---
Post Anesthesia Evaluation Procedure: EGD with epinephrin injection Date of Evaluation: May 10, 2018 Time of Evaluation: 16:40 Blood Pressure Systolic: 118 0: 68 Pulse Rate: 94 Respiratory Rate: 22 Temperature (Fahrenheit): 97.8 O2 Sat by Pulse Oximetry: 98 Airway: patent Nausea: No Vomiting: No Pain Intensity: 2 Hydration Status: adequate Cardiopulmonary Status: stable Mental Status/LOC: patient returned to baseline Follow-up Care/Observations: n/a Post-Anesthesia Complications: none Follow-up care needed: N/A Sameer Donaldson MD May 10, 2018 16:41
--- NOTE | 2018-05-10 17:02 | General Surgery Progress Note ---
General Surgery-Progress Note Subjective Additional Comments EGD today. blood clots evacuated and epi infiltrated. Objective Last 24 Hour Vital Signs Date Time Temp Pulse Resp B/P (MAP) Pulse Ox O2 Delivery O2 Flow Rate FiO2 05/10/18 16:45 97.8 98 16 120/63 100 Nasal Cannula 2 97.8 05/10/18 16:41 208.0 94 22 98 05/10/18 16:39 208.0 98 24 98 05/10/18 16:30 95 18 117/58 99 Nasal Cannula 4 05/10/18 16:25 98 18 122/61 99 Nasal Cannula 4 05/10/18 16:20 97.4 100 18 120/60 99 Nasal Cannula 4 97.4 05/10/18 13:08 97.9 101 20 128/73 (91) 94 97.9 05/10/18 12:43 97.3 100 20 124/64 (84) 94 97.3 05/10/18 12:05 97.3 101 20 124/66 (85) 94 97.3 05/10/18 12:00 99 05/10/18 11:50 97.2 99 20 104/61 (75) 94 97.2 05/10/18 10:00 Room Air 21 05/10/18 10:00 95 Room Air 21 05/10/18 09:13 116/68 05/10/18 09:00 Room Air Room Air Room Air 05/10/18 08:00 97.7 106 20 116/68 (84) 94 97.7 05/10/18 08:00 102 05/10/18 04:00 105 05/10/18 04:00 3.0 05/10/18 04:00 98.2 112 20 132/80 (97) 96 98.2 05/10/18 00:00 97.9 101 18 133/85 (101) 100 97.9 05/10/18 00:00 3.0 05/10/18 00:00 75 05/09/18 21:00 Nasal Cannula 3.0 Nasal Cannula 3.0 Nasal Cannula 3.0 05/09/18 20:18 97.7 104 20 130/90 (103) 100 97.7 05/09/18 20:13 97 Nasal Cannula 3.0 32 05/09/18 20:13 Nasal Cannula 3.0 32 05/09/18 20:00 101 05/09/18 20:00 3.0 05/09/18 17:07 135/79 I&O Intake and Output 05/09/18 05/10/18 19:00 07:00 Intake Total 290 ml Output Total 400 ml 600 ml Balance -110 ml -600 ml Intake Oral 290 ml Output Urine Total 400 ml 300 ml Emesis 300 ml # Bowel Movements 1 Dressing: saturated Wound: other Drains: other Cardiovascular: RSR Respiratory: clear Abdomen: soft, non-tender, present bowel sounds Extremities: other Laboratory Tests Test 05/10/18 06:35 White Blood Count 19.3 K/UL (4.8-10.8) H Red Blood Count 3.02 M/UL (4.70-6.10) L Hemoglobin 9.9 G/DL (14.2-18.0) L Hematocrit 28.8 % (42.0-52.0) L Mean Corpuscular Volume 95 FL (80-99) Mean Corpuscular Hemoglobin 32.8 PG (27.0-31.0) H Mean Corpuscular Hemoglobin Concent 34.3 G/DL (32.0-36.0) Red Cell Distribution Width 15.4 % (11.6-14.8) H Platelet Count 92 K/UL (150-450) L Mean Platelet Volume 7.3 FL (6.5-10.1) Neutrophils (%) (Auto) % (45.0-75.0) Lymphocytes (%) (Auto) % (20.0-45.0) Monocytes (%) (Auto) % (1.0-10.0) Eosinophils (%) (Auto) % (0.0-3.0) Basophils (%) (Auto) % (0.0-2.0) Differential Total Cells Counted 100 Neutrophils % (Manual) 96 % (45-75) H Lymphocytes % (Manual) 3 % (20-45) L Monocytes % (Manual) 1 % (1-10) Eosinophils % (Manual) 0 % (0-3) Basophils % (Manual) 0 % (0-2) Band Neutrophils 0 % (0-8) Platelet Estimate Decreased L Platelet Morphology Normal Hypochromasia 2+ Anisocytosis 1+ Prothrombin Time 20.9 SEC (9.30-11.50) H Prothromb Time International Ratio 2.1 (0.9-1.1) H Sodium Level 140 MMOL/L (136-145) Potassium Level 3.9 MMOL/L (3.5-5.1) Chloride Level 105 MMOL/L (98-107) Carbon Dioxide Level 28 MMOL/L (21-32) Anion Gap 7 mmol/L (5-15) Blood Urea Nitrogen 19 mg/dL (7-18) H Creatinine 1.1 MG/DL (0.55-1.30) Estimat Glomerular Filtration Rate > 60 mL/min (>60) Glucose Level 123 MG/DL (74-106) H Calcium Level 9.3 MG/DL (8.5-10.1) Total Bilirubin 6.2 MG/DL (0.2-1.0) H Direct Bilirubin 2.2 MG/DL (0.0-0.3) H Aspartate Amino Transf (AST/SGOT) 45 U/L (15-37) H Alanine Aminotransferase (ALT/SGPT) 34 U/L (12-78) Alkaline Phosphatase 120 U/L (46-116) H Ammonia 22 umol/L (11-32) Total Protein 7.3 G/DL (6.4-8.2) Albumin 1.8 G/DL (3.4-5.0) L Globulin 5.5 g/dL Albumin/Globulin Ratio 0.3 (1.0-2.7) L Plan Problems: (1) Wound of lower extremity Assessment & Plan: Multiple venous stasis ulcers of the right lower extremity. Bilateral lower extremity edema Full thickness ulcer noted to lateral right lower extremity (L)7.5cm x (W02.7cm x (D)0.2cm with wound bed grace,(+) maceration. no odor noted .Minimal serous exudate noted Full thickness ulcer noted to medial right lower extremity (L)2.5cm x (W)3cm x ( D)0.4cm with wound bed grace and slightly macerated borders .Minimal serous exudate noted Full thickness ulcer posterior R tibia (L)2.5cm x (W)1cm x (D)0.2cm with wound bed grace ,moist with minimal serous exudate. Hemosiderin noted to bilat lower ext with xeroses. Bilateral heels are dry but blanching. L lower ext noted to be oozing minimal serous exudate but no ulcerations noted. Non-blanching erythema noted wounds present upon admission unlikely etiology of leukocytosis. cont abx Plan: Cleanse Ulcerations lateral,medial and posterior RLE with Saline.Apply Calcium Alginate to wounds with ABD and wrap with Kerlix from base of toes daily and prn if soiled. Cavilon wipe to sacrum and cover with foam drsg .Change foam drsg [id number] day and prn. Off-load heels with pillows . Support Surface overlay on bed. Reposition at least every 2hours as tolerated. (2) Shock, septic Logan Gracia May 10, 2018 17:02
[2018-05-10] MEDS: Vancomycin 1gm/D5W 275ml IVPB SCH ×2 (17:14)
--- NOTE | 2018-05-10 17:40 | Diagnostic Imaging Report ---
Indications: Needs long-term IV access Technique: Ultrasound confirms patent compressible right basilic vein. Total sterile technique, including sterile probe cover and sterile gel, hat, mask, sterile gown, large sterile drape, and preparation with 2% chlorhexidine utilized. Local anesthesia with 1% lidocaine. Under real-time ultrasound guidance, puncture facet vein using 21-gauge needle, documented and archived, passage 0.018 guidewire under direct fluoroscopy, which was used to determine appropriate catheter length, exchange for 5 Moldovan peel-away sheath. 5 [place] Bard dual-lumen power PICC cut to 41 cm. It was inserted through the peel-away sheath. Peel-away sheath and guidewire removed. Catheter fixed to the skin. Both catheter ports aspirated and flushed. Patient tolerated procedure well, without immediate complication. Digital radiograph documents satisfactory catheter tip position, at the cavoatrial junction. Total fluoroscopy time 0.6 minutes. Total dose area product 22 dGycm2 Total number of images: 1 Impression: Successful placement of right arm PICC under sonographic and fluoroscopic guidance, as described above.
[2018-05-10] MEDS: Dyna-Hex 2% Top Sol 2oz TOPIC SCH (21:01)
--- NOTE | 2018-05-10 22:26 | Pulmonology Progress Note ---
Assessment/Plan Problems: (1) Wound of lower extremity (2) Gram negative sepsis (3) Acute respiratory failure without hypercapnia (4) Acute encephalopathy (5) Lactic acid acidosis (6) Cirrhosis of liver (7) Cellulitis (8) Altered mental state (9) Shock, septic (10) Acute kidney failure (11) GI bleeding Assessment/Plan Optimize pulmonary hygiene/mobilize as tolerated PRN O2 PRN Lasix Abx per ID Lactulose/rifax F/U GI recs: S/P EGD S/P EPI, PPI, octreotide S/P FFP Hold Hep SQ FC Subjective Allergies: Coded Allergies: No Known Allergies (Unverified , 04/29/18) Subjective Seen earlier was having large volume hematemesis S/P FFP and EGD --> bleeding from gastritis, no variceal bleeding Denies cough, congestion, SOB, no F/C, HH stable Objective Last 24 Hour Vital Signs Date Time Temp Pulse Resp B/P (MAP) Pulse Ox O2 Delivery O2 Flow Rate FiO2 05/10/18 21:00 Room Air Room Air Room Air 05/10/18 20:20 Room Air 21 05/10/18 20:19 94 Room Air 21 05/10/18 20:00 99 05/10/18 20:00 97.3 102 20 127/85 (99) 99 97.3 05/10/18 18:00 122/64 05/10/18 17:15 97.7 101 16 122/64 (83) 99 97.7 05/10/18 16:45 97.8 98 16 120/63 100 Nasal Cannula 2 97.8 05/10/18 16:41 208.0 94 22 98 05/10/18 16:39 208.0 98 24 98 05/10/18 16:30 95 18 117/58 99 Nasal Cannula 4 05/10/18 16:25 98 18 122/61 99 Nasal Cannula 4 05/10/18 16:20 97.4 100 18 120/60 99 Nasal Cannula 4 97.4 05/10/18 13:08 97.9 101 20 128/73 (91) 94 97.9 05/10/18 12:43 97.3 100 20 124/64 (84) 94 97.3 05/10/18 12:05 97.3 101 20 124/66 (85) 94 97.3 05/10/18 12:00 99 05/10/18 11:50 97.2 99 20 104/61 (75) 94 97.2 05/10/18 10:00 Room Air 21 05/10/18 10:00 95 Room Air 21 05/10/18 09:13 116/68 05/10/18 09:00 Room Air Room Air Room Air 05/10/18 08:00 97.7 106 20 116/68 (84) 94 97.7 05/10/18 08:00 102 05/10/18 04:00 105 05/10/18 04:00 3.0 05/10/18 04:00 98.2 112 20 132/80 (97) 96 98.2 05/10/18 00:00 97.9 101 18 133/85 (101) 100 97.9 05/10/18 00:00 3.0 05/10/18 00:00 75 Intake and Output 05/09/18 05/10/18 19:00 07:00 Intake Total 290 ml Output Total 400 ml 600 ml Balance -110 ml -600 ml Intake Oral 290 ml Output Urine Total 400 ml 300 ml Emesis 300 ml # Bowel Movements 1 General Appearance: no acute distress HEENT: normocephalic, atraumatic, anicteric Respiratory/Chest: chest wall non-tender, lungs clear, normal breath sounds, no respiratory distress Cardiovascular: normal peripheral pulses, normal rate, regular rhythm Abdomen: normal bowel sounds, soft, non tender, no organomegaly, non distended Extremities: no cyanosis, no clubbing, no edema Laboratory Tests 05/10/18 06:35: White Blood Count 19.3H, Red Blood Count 3.02L, Hemoglobin 9.9L, Hematocrit 28.8L, Mean Corpuscular Volume 95, Mean Corpuscular Hemoglobin 32.8H, Mean Corpuscular Hemoglobin Concent 34.3, Red Cell Distribution Width 15.4H, Platelet Count 92L, Mean Platelet Volume 7.3, Neutrophils (%) (Auto) , Lymphocytes (%) (Auto) , Monocytes (%) (Auto) , Eosinophils (%) (Auto) , Basophils (%) (Auto) , Differential Total Cells Counted 100, Neutrophils % ( Manual) 96H, Lymphocytes % (Manual) 3L, Monocytes % (Manual) 1, Eosinophils % ( Manual) 0, Basophils % (Manual) 0, Band Neutrophils 0, Platelet Estimate DecreasedL, Platelet Morphology Normal, Hypochromasia 2+, Anisocytosis 1+, Prothrombin Time 20.9H, Prothromb Time International Ratio 2.1H, Sodium Level 140, Potassium Level 3.9, Chloride Level 105, Carbon Dioxide Level 28, Anion Gap 7, Blood Urea Nitrogen 19H, Creatinine 1.1, Estimat Glomerular Filtration Rate > 60, Glucose Level 123H, Calcium Level 9.3, Total Bilirubin 6.2H, Direct Bilirubin 2.2H, Aspartate Amino Transf (AST/SGOT) 45H, Alanine Aminotransferase (ALT/SGPT) 34, Alkaline Phosphatase 120H, Ammonia 22, Total Protein 7.3, Albumin 1.8L, Globulin 5.5, Albumin/Globulin Ratio 0.3L Current Medications Medications (Trade) Dose Ordered Sig/Ry Route PRN Reason Start Time Stop Time Status Last Admin Dose Admin Chlorhexidine Gluconate (Fatemeh-Hex 2%) 1 applic DAILY@2000 TOPIC 05/10/18 20:00 06/09/18 19:59 05/10/18 21:01 Dextrose/Sodium Chloride 1,000 ml @ 75 mls/hr [id number] IV 05/10/18 09:00 06/09/18 08:59 05/10/18 09:13 Fluconazole/ Sodium Chloride 100 ml @ 100 mls/hr Q24H IV 05/10/18 18:00 05/17/18 17:59 05/10/18 17:54 Heparin Sodium/ Sodium Chloride (Heparin 2000 units/Ns 1000ml premix) 2,000 unit ONCE PRN INJ PICC PLACEMENT 05/10/18 10:15 05/11/18 23:59 Lactulose (Cephulac) 20 gm THREE TIMES A DAY ORAL 05/08/18 09:00 05/30/18 12:59 05/10/18 09:13 Lidocaine HCl (Xylocaine 1% 30ml) 30 ml ONCE PRN INJ PICC PLACEMENT 05/10/18 10:15 05/11/18 23:59 Ondansetron HCl (Zofran) 4 mg Q6H PRN IVP Nausea & Vomiting 05/10/18 01:30 06/09/18 01:29 05/10/18 01:29 Pantoprazole (Protonix) 40 mg Q12H IVP 05/10/18 07:00 06/09/18 06:59 05/10/18 18:24 Pentoxifylline (TRENtal) 400 mg THREE TIMES A DAY ORAL 05/07/18 18:00 05/31/18 08:59 05/10/18 09:13 Piperacillin Sod/ Tazobactam Sod 3.375 gm/Dextrose 100 ml @ 25 mls/hr EVERY 8 HOURS IVPB 05/10/18 22:00 05/15/18 21:59 05/10/18 21:01 Rifaximin (Xifaxan) 550 mg EVERY 12 HOURS ORAL 05/09/18 22:30 05/16/18 22:29 05/10/18 21:01 Vancomycin HCl (Vanco rx to dose) 1 ea DAILY PRN MISC Per rx protocol 05/10/18 14:30 06/09/18 14:29 Vancomycin HCl 1 gm/Dextrose 275 ml @ 183.708 mls/hr Q12HR@0400,1600 IVPB 05/10/18 16:00 05/15/18 15:59 05/10/18 17:14 Mario Rasmussen MD May 10, 2018 22:26
[2018-05-11] MEDS: Vancomycin 1gm/D5W 275ml IVPB SCH ×4 (03:59→15:08)
[2018-05-11 04:00] VITALS: BP 111/64
[2018-05-11] MEDS: Pantoprazole Inj IVP SCH ×2 (05:59→18:21)
[2018-05-11] MEDS: D5 1/2NS 1,000 ML IV SCH ×2 (06:09→23:26)
[2018-05-11 07:02] LABS: ANION GAP 3 mmol/L (5-15); BLOOD UREA NITROGEN 24 mg/dL (7-18); CALCIUM 8.9 MG/DL (8.5-10.1); CARBON DIOXIDE 29 MMOL/L (21-32); CHLORIDE 107 MMOL/L (98-107); CREATININE 1.1 MG/DL (0.55-1.30); POTASSIUM 3.8 MMOL/L (3.5-5.1); SODIUM 139 MMOL/L (136-145)
[2018-05-11 08:00] VITALS: BP 112/62
[2018-05-11] MEDS: Lactulose 20gm/30ml UDC ORAL SCH ×5 (08:24→17:13)
[2018-05-11 09:42] LABS: HEMATOCRIT 23.8 % (42.0-52.0); MEAN CORPUSCULAR VOLUME 95 FL (80-99); PLATELET COUNT 68 K/UL (150-450); RED CELL DISTRIBUTION WIDTH 16.4 % (11.6-14.8); WHITE BLOOD COUNT 12.3 K/UL (4.8-10.8)
[2018-05-11 12:00] VITALS: BP 116/63
[2018-05-11 16:00] VITALS: BP 122/70
--- NOTE | 2018-05-11 16:18 | General Progress Note ---
Assessment/Plan Assessment/Plan Septic Shock due to Providencia bacteremia, had PICC placed and started back on IV antibiotics per ID. Hematemesis, underwent EGD yesterday, no bleeding varices but hemorrhagic gastritis, s/p epinephrine injection. Hb is 8 today, will continue to monitor blood counts closely, transfuse if Hb < 8 Acute hypoxic respiratory failure, stable respiratory status. Decompensated cirrhosis, s/p therapeutic paracentesis this admission, continue rifaximin and lactulose. AGNIESZKA due to ATN from sepsis and hypotension, resolved. Acute metabolic encephalopathy, resolving, continue supportive measures Thrombocytopenia, multifactorial from ESLD, bone marrow suppression from septic shock, platelet counts improving. LE ulcerations, Surgery following for wound care, no evidence of cellulitis Diarrhea, neg stool C. diff DVT Prophylaxis Venodynes Subjective Date patient seen: May 11, 2018 Time patient seen: 13:00 ROS Limited/Unobtainable: No Constitutional: Denies: fever Cardiovascular: Denies: chest pain Respiratory: Reports: cough Gastrointestinal/Abdominal: Denies: abdominal pain Allergies: Coded Allergies: No Known Allergies (Unverified , 04/29/18) Subjective Medical followup for multiple medical conditions including septic shock, acute hypoxic respiratory failure, decompensated cirrhosis, AGNIESZKA. Mentation much improved and he is able to participate in the interview much more now. No furtehr hematemesis Objective Last 24 Hour Vital Signs Date Time Temp Pulse Resp B/P (MAP) Pulse Ox O2 Delivery O2 Flow Rate FiO2 05/11/18 12:23 116/63 05/11/18 12:00 97.3 95 20 116/63 (80) 96 97.3 05/11/18 12:00 91 05/11/18 09:00 Room Air Room Air Room Air 05/11/18 08:24 112/62 05/11/18 08:00 97.3 97 20 112/62 (79) 96 97.3 05/11/18 08:00 94 05/11/18 04:00 97.5 95 20 111/64 (80) 98 97.5 05/11/18 04:00 95 05/11/18 00:00 96 05/10/18 23:59 97.7 93 20 114/63 (80) 97 97.7 05/10/18 22:53 Room Air Room Air Room Air 05/10/18 20:20 Room Air 21 05/10/18 20:19 94 Room Air 21 05/10/18 20:00 99 05/10/18 20:00 97.3 102 20 127/85 (99) 99 97.3 05/10/18 18:00 122/64 05/10/18 17:15 97.7 101 16 122/64 (83) 99 97.7 05/10/18 16:45 97.8 98 16 120/63 100 Nasal Cannula 2 97.8 05/10/18 16:41 208.0 94 22 98 05/10/18 16:39 208.0 98 24 98 05/10/18 16:30 95 18 117/58 99 Nasal Cannula 4 05/10/18 16:25 98 18 122/61 99 Nasal Cannula 4 05/10/18 16:20 97.4 100 18 120/60 99 Nasal Cannula 4 97.4 Intake and Output 05/10/18 05/11/18 19:00 07:00 Intake Total 650.000 ml 1200.00 ml Balance 650.000 ml 1200.00 ml IV Total 650.000 ml 1200.00 ml Laboratory Tests 05/11/18 05:20: Sodium Level 139, Potassium Level 3.8, Chloride Level 107, Carbon Dioxide Level 29, Anion Gap 3L, Blood Urea Nitrogen 24H, Creatinine 1.1, Estimat Glomerular Filtration Rate > 60, Glucose Level 212H, Calcium Level 8.9 05/11/18 09:20: White Blood Count 12.3H, Red Blood Count 2.50L, Hemoglobin 8.0L, Hematocrit 23.8L, Mean Corpuscular Volume 95, Mean Corpuscular Hemoglobin 31.9H, Mean Corpuscular Hemoglobin Concent 33.5, Red Cell Distribution Width 16.4H, Platelet Count 68L, Mean Platelet Volume 6.3L, Neutrophils (%) (Auto) , Lymphocytes (%) (Auto) , Monocytes (%) (Auto) , Eosinophils (%) (Auto) , Basophils (%) (Auto) , Differential Total Cells Counted 100, Neutrophils % ( Manual) 83H, Lymphocytes % (Manual) 11L, Monocytes % (Manual) 5, Eosinophils % ( Manual) 0, Basophils % (Manual) 0, Band Neutrophils 1, Platelet Estimate DecreasedL, Platelet Morphology Normal, Hypochromasia 1+, Anisocytosis 1+, Macrocytosis 1+ Height (Feet): 5 Height (Inches): 9.00 Weight (Pounds): 309 General Appearance: no apparent distress, alert Neck: normal alignment Cardiovascular: normal peripheral pulses Respiratory/Chest: lungs clear, normal breath sounds Abdomen: non tender, soft Krzysztof Gonsalves MD May 11, 2018 16:18
--- NOTE | 2018-05-11 18:38 | Pulmonology Progress Note ---
Assessment/Plan Problems: (1) Wound of lower extremity (2) Gram negative sepsis (3) Acute respiratory failure without hypercapnia (4) Acute encephalopathy (5) Lactic acid acidosis (6) Cirrhosis of liver (7) Cellulitis (8) Altered mental state (9) Shock, septic (10) Acute kidney failure (11) GI bleeding Assessment/Plan Optimize pulmonary hygiene/mobilize as tolerated PRN O2 PRN Lasix Abx per ID (Flucon/Vanco/Zosyn) Lactulose/rifax/trental F/U GI recs: S/P EGD S/P EPI, PPI NPO, advance diet per GI Hold Hep SQ FC Subjective Allergies: Coded Allergies: No Known Allergies (Unverified , 04/29/18) Subjective S/P FFP and EGD --> bleeding from gastritis, no variceal bleeding, Hb 8 Denies cough, congestion, SOB, no F/C, wants to eat and drink No further hematemesis Objective Last 24 Hour Vital Signs Date Time Temp Pulse Resp B/P (MAP) Pulse Ox O2 Delivery O2 Flow Rate FiO2 05/11/18 17:13 122/70 05/11/18 16:00 97.9 91 20 122/70 (87) 93 97.9 05/11/18 16:00 94 05/11/18 12:23 116/63 05/11/18 12:00 97.3 95 20 116/63 (80) 96 97.3 05/11/18 12:00 91 05/11/18 10:03 Room Air 21 05/11/18 10:03 95 Room Air 21 05/11/18 09:00 Room Air Room Air Room Air 05/11/18 08:24 112/62 05/11/18 08:00 97.3 97 20 112/62 (79) 96 97.3 05/11/18 08:00 94 05/11/18 04:00 97.5 95 20 111/64 (80) 98 97.5 05/11/18 04:00 95 05/11/18 00:00 96 05/10/18 23:59 97.7 93 20 114/63 (80) 97 97.7 05/10/18 22:53 Room Air Room Air Room Air 05/10/18 20:20 Room Air 21 05/10/18 20:19 94 Room Air 21 05/10/18 20:00 99 05/10/18 20:00 97.3 102 20 127/85 (99) 99 97.3 Intake and Output 05/10/18 05/11/18 19:00 07:00 Intake Total 650.000 ml 1200.00 ml Balance 650.000 ml 1200.00 ml IV Total 650.000 ml 1200.00 ml General Appearance: WD/WN, no acute distress HEENT: normocephalic, atraumatic, anicteric, mucous membranes moist Respiratory/Chest: chest wall non-tender, lungs clear, normal breath sounds, no respiratory distress, no accessory muscle use Cardiovascular: normal peripheral pulses, normal rate, regular rhythm Abdomen: normal bowel sounds, soft, non tender, no organomegaly, non distended , no mass Extremities: no cyanosis, no clubbing, other - bLe dressed Laboratory Tests 05/11/18 05:20: Sodium Level 139, Potassium Level 3.8, Chloride Level 107, Carbon Dioxide Level 29, Anion Gap 3L, Blood Urea Nitrogen 24H, Creatinine 1.1, Estimat Glomerular Filtration Rate > 60, Glucose Level 212H, Calcium Level 8.9 05/11/18 09:20: White Blood Count 12.3H, Red Blood Count 2.50L, Hemoglobin 8.0L, Hematocrit 23.8L, Mean Corpuscular Volume 95, Mean Corpuscular Hemoglobin 31.9H, Mean Corpuscular Hemoglobin Concent 33.5, Red Cell Distribution Width 16.4H, Platelet Count 68L, Mean Platelet Volume 6.3L, Neutrophils (%) (Auto) , Lymphocytes (%) (Auto) , Monocytes (%) (Auto) , Eosinophils (%) (Auto) , Basophils (%) (Auto) , Differential Total Cells Counted 100, Neutrophils % ( Manual) 83H, Lymphocytes % (Manual) 11L, Monocytes % (Manual) 5, Eosinophils % ( Manual) 0, Basophils % (Manual) 0, Band Neutrophils 1, Platelet Estimate DecreasedL, Platelet Morphology Normal, Hypochromasia 1+, Anisocytosis 1+, Macrocytosis 1+ Current Medications Medications (Trade) Dose Ordered Sig/Ry Route PRN Reason Start Time Stop Time Status Last Admin Dose Admin Chlorhexidine Gluconate (Fatemeh-Hex 2%) 1 applic DAILY@1999 TOPIC 05/10/18 20:00 06/09/18 19:59 05/10/18 21:01 Dextrose/Sodium Chloride 1,000 ml @ 75 mls/hr [id number] IV 05/10/18 09:00 06/09/18 08:59 05/11/18 06:09 Fluconazole/ Sodium Chloride 100 ml @ 100 mls/hr Q24H IV 05/10/18 18:00 05/17/18 17:59 05/11/18 17:08 Heparin Sodium/ Sodium Chloride (Heparin 2000 units/Ns 1000ml premix) 2,000 unit ONCE PRN INJ PICC PLACEMENT 05/10/18 10:15 05/11/18 23:59 Lactulose (Cephulac) 20 gm THREE TIMES A DAY ORAL 05/08/18 09:00 05/30/18 12:59 05/11/18 08:24 Lidocaine HCl (Xylocaine 1% 30ml) 30 ml ONCE PRN INJ PICC PLACEMENT 05/10/18 10:15 05/11/18 23:59 Ondansetron HCl (Zofran) 4 mg Q6H PRN IVP Nausea & Vomiting 05/10/18 01:30 06/09/18 01:29 05/10/18 01:29 Pantoprazole (Protonix) 40 mg Q12H IVP 05/10/18 07:00 06/09/18 06:59 05/11/18 18:21 Pentoxifylline (TRENtal) 400 mg THREE TIMES A DAY ORAL 05/07/18 18:00 05/31/18 08:59 05/11/18 12:23 Piperacillin Sod/ Tazobactam Sod 3.375 gm/Dextrose 100 ml @ 25 mls/hr EVERY 8 HOURS IVPB 05/10/18 22:00 05/15/18 21:59 05/11/18 13:04 Rifaximin (Xifaxan) 550 mg EVERY 12 HOURS ORAL 05/09/18 22:30 05/16/18 22:29 05/11/18 08:24 Vancomycin HCl (Vanco rx to dose) 1 ea DAILY PRN MISC Per rx protocol 05/10/18 14:30 06/09/18 14:29 Vancomycin HCl 1 gm/Dextrose 275 ml @ 183.708 mls/hr Q12HR@0400,1600 IVPB 05/10/18 16:00 05/15/18 15:59 05/11/18 15:08 Mario Rasmussen MD May 11, 2018 18:38
[2018-05-11 20:30] VITALS: BP 139/75
--- NOTE | 2018-05-11 20:41 | General Progress Note ---
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 no further bleeding started on clears Objective Last 24 Hour Vital Signs Date Time Temp Pulse Resp B/P (MAP) Pulse Ox O2 Delivery O2 Flow Rate FiO2 05/11/18 19:29 Nasal Cannula 2.0 28 05/11/18 19:29 96 Nasal Cannula 2.0 28 05/11/18 17:13 122/70 05/11/18 16:00 97.9 91 20 122/70 (87) 93 97.9 05/11/18 16:00 94 05/11/18 12:23 116/63 05/11/18 12:00 97.3 95 20 116/63 (80) 96 97.3 05/11/18 12:00 91 05/11/18 10:03 Room Air 21 05/11/18 10:03 95 Room Air 21 05/11/18 09:00 Room Air Room Air Room Air 05/11/18 08:24 112/62 05/11/18 08:00 97.3 97 20 112/62 (79) 96 97.3 05/11/18 08:00 94 05/11/18 04:00 97.5 95 20 111/64 (80) 98 97.5 05/11/18 04:00 95 05/11/18 00:00 96 05/10/18 23:59 97.7 93 20 114/63 (80) 97 97.7 05/10/18 22:53 Room Air Room Air Room Air Intake and Output 05/10/18 05/11/18 19:00 07:00 Intake Total 650.000 ml 1200.00 ml Balance 650.000 ml 1200.00 ml IV Total 650.000 ml 1200.00 ml Laboratory Tests 05/11/18 05:20: Sodium Level 139, Potassium Level 3.8, Chloride Level 107, Carbon Dioxide Level 29, Anion Gap 3L, Blood Urea Nitrogen 24H, Creatinine 1.1, Estimat Glomerular Filtration Rate > 60, Glucose Level 212H, Calcium Level 8.9 05/11/18 09:20: White Blood Count 12.3H, Red Blood Count 2.50L, Hemoglobin 8.0L, Hematocrit 23.8L, Mean Corpuscular Volume 95, Mean Corpuscular Hemoglobin 31.9H, Mean Corpuscular Hemoglobin Concent 33.5, Red Cell Distribution Width 16.4H, Platelet Count 68L, Mean Platelet Volume 6.3L, Neutrophils (%) (Auto) , Lymphocytes (%) (Auto) , Monocytes (%) (Auto) , Eosinophils (%) (Auto) , Basophils (%) (Auto) , Differential Total Cells Counted 100, Neutrophils % ( Manual) 83H, Lymphocytes % (Manual) 11L, Monocytes % (Manual) 5, Eosinophils % ( Manual) 0, Basophils % (Manual) 0, Band Neutrophils 1, Platelet Estimate DecreasedL, Platelet Morphology Normal, Hypochromasia 1+, Anisocytosis 1+, Macrocytosis 1+ Height (Feet): 5 Height (Inches): 9.00 Weight (Pounds): 309 Objective WDWN WM NCAT supple CTA RRR Soft / Obese trace edema sedated Pierre Suggs MD May 11, 2018 20:41
[2018-05-11] MEDS: Dyna-Hex 2% Top Sol 2oz TOPIC SCH (21:11)
--- NOTE | 2018-05-11 21:49 | General Progress Note ---
Assessment/Plan Status: stable, progressing Assessment/Plan [place] [facility] [place]oqu[place] ro/st Subjective Neurologic/Psychiatric: Reports: anxiety, depressed, emotional problems Allergies: Coded Allergies: No Known Allergies (Unverified , 04/29/18) Objective Last 24 Hour Vital Signs Date Time Temp Pulse Resp B/P (MAP) Pulse Ox O2 Delivery O2 Flow Rate FiO2 05/11/18 21:00 Room Air Room Air Room Air 05/11/18 20:30 97.9 94 20 139/75 (96) 98 97.9 05/11/18 20:00 95 05/11/18 19:29 Nasal Cannula 2.0 28 05/11/18 19:29 96 Nasal Cannula 2.0 28 05/11/18 17:13 122/70 05/11/18 16:00 97.9 91 20 122/70 (87) 93 97.9 05/11/18 16:00 94 05/11/18 12:23 116/63 05/11/18 12:00 97.3 95 20 116/63 (80) 96 97.3 05/11/18 12:00 91 05/11/18 10:03 Room Air 21 05/11/18 10:03 95 Room Air 21 05/11/18 09:00 Room Air Room Air Room Air 05/11/18 08:24 112/62 05/11/18 08:00 97.3 97 20 112/62 (79) 96 97.3 05/11/18 08:00 94 05/11/18 04:00 97.5 95 20 111/64 (80) 98 97.5 05/11/18 04:00 95 05/11/18 00:00 96 05/10/18 23:59 97.7 93 20 114/63 (80) 97 97.7 05/10/18 22:53 Room Air Room Air Room Air Intake and Output 05/10/18 05/11/18 19:00 07:00 Intake Total 650.000 ml 1200.00 ml Balance 650.000 ml 1200.00 ml IV Total 650.000 ml 1200.00 ml Laboratory Tests 05/11/18 05:20: Sodium Level 139, Potassium Level 3.8, Chloride Level 107, Carbon Dioxide Level 29, Anion Gap 3L, Blood Urea Nitrogen 24H, Creatinine 1.1, Estimat Glomerular Filtration Rate > 60, Glucose Level 212H, Calcium Level 8.9 05/11/18 09:20: White Blood Count 12.3H, Red Blood Count 2.50L, Hemoglobin 8.0L, Hematocrit 23.8L, Mean Corpuscular Volume 95, Mean Corpuscular Hemoglobin 31.9H, Mean Corpuscular Hemoglobin Concent 33.5, Red Cell Distribution Width 16.4H, Platelet Count 68L, Mean Platelet Volume 6.3L, Neutrophils (%) (Auto) , Lymphocytes (%) (Auto) , Monocytes (%) (Auto) , Eosinophils (%) (Auto) , Basophils (%) (Auto) , Differential Total Cells Counted 100, Neutrophils % ( Manual) 83H, Lymphocytes % (Manual) 11L, Monocytes % (Manual) 5, Eosinophils % ( Manual) 0, Basophils % (Manual) 0, Band Neutrophils 1, Platelet Estimate DecreasedL, Platelet Morphology Normal, Hypochromasia 1+, Anisocytosis 1+, Macrocytosis 1+ Height (Feet): 5 Height (Inches): 9.00 Weight (Pounds): 309 General Appearance: no apparent distress, alert Chava Rivas MD May 11, 2018 21:48
[2018-05-12] VITALS: BP 127/61
[2018-05-12 04:00] VITALS: BP 123/70
[2018-05-12] MEDS: Vancomycin 1gm/D5W 275ml IVPB SCH ×4 (04:21→16:03)
[2018-05-12] MEDS: Pantoprazole Inj IVP SCH ×2 (06:18→18:01)
[2018-05-12 06:35] LABS: HEMATOCRIT 22.8 % (42.0-52.0); HEMOGLOBIN 7.6 G/DL (14.2-18.0); MEAN CORPUSCULAR VOLUME 95 FL (80-99); PLATELET COUNT 73 K/UL (150-450); RED BLOOD COUNT 2.39 M/UL (4.70-6.10); RED CELL DISTRIBUTION WIDTH 16.6 % (11.6-14.8); WHITE BLOOD COUNT 12.8 K/UL (4.8-10.8)
[2018-05-12 06:49] LABS: ALANINE AMINOTRANSFERASE 34 U/L (12-78); ALBUMIN 1.6 G/DL (3.4-5.0); ALBUMIN/GLOBULIN RATIO 0.3 (1.0-2.7); ALKALINE PHOSPHATASE 100 U/L (46-116); ANION GAP 1 mmol/L (5-15); ASPARTATE AMINO TRANSFERASE 46 U/L (15-37); BILIRUBIN,TOTAL 4.9 MG/DL (0.2-1.0); BLOOD UREA NITROGEN 20 mg/dL (7-18); CALCIUM 8.4 MG/DL (8.5-10.1); CARBON DIOXIDE 29 MMOL/L (21-32); CHLORIDE 103 MMOL/L (98-107); CREATININE 1.2 MG/DL (0.55-1.30); POTASSIUM 3.7 MMOL/L (3.5-5.1); SODIUM 133 MMOL/L (136-145)
[2018-05-12 06:53] LABS: BILIRUBIN,DIRECT 1.9 MG/DL (0.0-0.3)
[2018-05-12 08:00] VITALS: BP 126/70
--- NOTE | 2018-05-12 09:13 | General Progress Note ---
Assessment/Plan Status: stable Assessment/Plan Septic Shock due to Providencia bacteremia - PICC placed and started back on IV antibiotics--on vanco, zosyn, difucan x 5 days per ID Acute upper GI bleed w/ hematemesis - underwent EGD 05/10/18 which showed no bleeding varices but hemorrhagic gastritis, s/p epinephrine injection, cont PPI. Hgb drop to 7.6 today, repeat CBC later today Acute hypoxic respiratory failure - stable respiratory status. Decompensated alcoholic cirrhosis c/b ascites and hepatic encephalopathy - s/p therapeutic paracentesis this admission, continue rifaximin and lactulose. AGNIESZKA due to ATN from sepsis and hypotension - resolved. Acute metabolic encephalopathy - resolving, continue supportive measures Thrombocytopenia - multifactorial from ESLD, bone marrow suppression from septic shock, platelet counts improving. Coagulopathy - 2/2 cirrhosis, ctm LE ulcerations - surgery following for wound care, no evidence of cellulitis Hypoglycemia - likely in setting of liver failure, ctm Diarrhea - neg stool C. diff Deconditioning - PT/OT eval, likely needs SNF. SW/Cm consulted DVT Prophylaxis: SCD Code Status: Full Hospital Classification Declaration: Based on this initial evaluation, and depending on the patient's clinical course, I anticipate that this patient will require hospitalization for 2-3 days for IV abx and close respiratory/ hemodynamic monitoring. Disposition: Once the patient is stable to leave the hospital, I anticipate the patient will likely be discharged to the following environment: home with HH vs SNF I spent 42 minutes on this patient's case, and 22 minutes were dedicated to counseling and/or care coordination. Discussed with patient/family, nursing staff, SW/CM, GI, ID regarding clinical status, treatment course, and disposition planning. Time of note may not reflect time of encounter. Subjective Date patient seen: May 12, 2018 Time patient seen: 09:13 ROS Limited/Unobtainable: No Constitutional: Reports: no symptoms HEENT: Reports: no symptoms Cardiovascular: Reports: no symptoms Respiratory: Reports: no symptoms Gastrointestinal/Abdominal: Reports: no symptoms Genitourinary: Reports: no symptoms Neurologic/Psychiatric: Reports: no symptoms Endocrine: Reports: no symptoms Hematologic/Lymphatic: Reports: no symptoms Allergies: Coded Allergies: No Known Allergies (Unverified , 04/29/18) Subjective No acute o/n events More awake, alert. Denies pain, SOB Worked w/ PT today, feels weak. Discussed SNF, pt somewhat amenable but does prefer to go home Objective Last 24 Hour Vital Signs Date Time Temp Pulse Resp B/P (MAP) Pulse Ox O2 Delivery O2 Flow Rate FiO2 05/12/18 08:00 97.9 97 20 126/70 (88) 97 97.9 05/12/18 07:03 Nasal Cannula 2.0 28 05/12/18 07:03 95 Nasal Cannula 2.0 28 05/12/18 04:00 98 05/12/18 04:00 97.3 94 20 123/70 (87) 96 97.3 05/12/18 00:00 97.9 88 20 127/61 (83) 98 97.9 05/12/18 00:00 89 05/11/18 22:00 76 18 96 2.0 28 05/11/18 21:00 Room Air Room Air Room Air 05/11/18 20:30 97.9 94 20 139/75 (96) 98 97.9 05/11/18 20:00 95 05/11/18 19:29 Nasal Cannula 2.0 28 05/11/18 19:29 96 Nasal Cannula 2.0 28 05/11/18 17:13 122/70 05/11/18 16:00 97.9 91 20 122/70 (87) 93 97.9 05/11/18 16:00 94 05/11/18 12:23 116/63 05/11/18 12:00 97.3 95 20 116/63 (80) 96 97.3 05/11/18 12:00 91 05/11/18 10:03 Room Air 21 05/11/18 10:03 95 Room Air 21 Intake and Output 05/11/18 05/12/18 19:00 07:00 Intake Total 1400.000 ml 75 ml Output Total 300 ml 350 ml Balance 1100.000 ml -275 ml IV Total 1400.000 ml 75 ml Output Urine Total 300 ml 350 ml Laboratory Tests 05/11/18 09:20: White Blood Count 12.3H, Red Blood Count 2.50L, Hemoglobin 8.0L, Hematocrit 23.8L, Mean Corpuscular Volume 95, Mean Corpuscular Hemoglobin 31.9H, Mean Corpuscular Hemoglobin Concent 33.5, Red Cell Distribution Width 16.4H, Platelet Count 68L, Mean Platelet Volume 6.3L, Neutrophils (%) (Auto) , Lymphocytes (%) (Auto) , Monocytes (%) (Auto) , Eosinophils (%) (Auto) , Basophils (%) (Auto) , Differential Total Cells Counted 100, Neutrophils % ( Manual) 83H, Lymphocytes % (Manual) 11L, Monocytes % (Manual) 5, Eosinophils % ( Manual) 0, Basophils % (Manual) 0, Band Neutrophils 1, Platelet Estimate DecreasedL, Platelet Morphology Normal, Hypochromasia 1+, Anisocytosis 1+, Macrocytosis 1+ 05/12/18 06:00: White Blood Count 12.8H, Red Blood Count 2.39L, Hemoglobin 7.6L, Hematocrit 22.8L, Mean Corpuscular Volume 95, Mean Corpuscular Hemoglobin 31.9H, Mean Corpuscular Hemoglobin Concent 33.4, Red Cell Distribution Width 16.6H, Platelet Count 73L, Mean Platelet Volume 7.0, Neutrophils (%) (Auto) , Lymphocytes (%) (Auto) , Monocytes (%) (Auto) , Eosinophils (%) (Auto) , Basophils (%) (Auto) , Differential Total Cells Counted 100, Neutrophils % ( Manual) 86H, Lymphocytes % (Manual) 6L, Monocytes % (Manual) 6, Eosinophils % ( Manual) 2, Basophils % (Manual) 0, Band Neutrophils 0, Platelet Estimate DecreasedL, Platelet Morphology Normal, Hypochromasia 1+, Anisocytosis 1+, Sodium Level 133L, Potassium Level 3.7, Chloride Level 103, Carbon Dioxide Level 29, Anion Gap 1L, Blood Urea Nitrogen 20H, Creatinine 1.2, Estimat Glomerular Filtration Rate > 60, Glucose Level 141H, Calcium Level 8.4L, Total Bilirubin 4.9H, Direct Bilirubin 1.9H, Aspartate Amino Transf (AST/SGOT) 46H, Alanine Aminotransferase (ALT/SGPT) 34, Alkaline Phosphatase 100, Total Protein 6.3L, Albumin 1.6L, Globulin 4.7, Albumin/Globulin Ratio 0.3L Height (Feet): 5 Height (Inches): 9.00 Weight (Pounds): 312 Objective General: alert, cooperative, no distress, appears stated age Head: normocephalic, without obvious abnormality, atraumatic Eyes: conjunctivae/corneas clear. PERRL, EOM's intact Throat: lips, mucosa, and tongue normal. MMM Neck: supple, symmetrical, trachea midline, and no JVD Lungs: clear to auscultation bilaterally Heart: regular rate and rhythm, S1, S2 normal, no murmur, click, rub or gallop Abdomen: soft, non-tender, some abd distention, no discrete fluid wave, bowel sounds normal Extremities: extremities normal, atraumatic, no cyanosis, +BLE edema Pulses: 2+ and symmetric Skin: multiple chronic venous stasis ulcers Neurologic: grossly normal, no focal deficits Gadiel Tam M.D. May 12, 2018 09:13
[2018-05-12] MEDS: Lactulose 20gm/30ml UDC ORAL SCH ×4 (09:19→18:01)
--- NOTE | 2018-05-12 09:40 | Diagnostic Imaging Report ---
Indication: Cough Technique: One view of the chest Comparison: 05/10/2018 Findings: Inspiration is suboptimal. There is atelectasis in the left perihilar region. Generalized mild interstitial edema persists, unchanged. Interim placement of right arm PICC. Impression: Hypoventilatory exam with left perihilar atelectasis Interim PICC placement Unchanged mild interstitial edema
--- NOTE | 2018-05-12 10:25 | General Progress Note ---
Assessment/Plan Assessment/Plan ASSESSMENT AND RECS: 1. Thrombocytopenia, potentially secondary to septic shock and myleosuppresion, severe sepsis, end-organ damage, closely monitor, platelet count downtrending peripheral smear has been reviewed. The patient continues to have lactic acidosis, improved at this time and, in addition, imaging reviewed. 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 --> hepatitis and hiv reviewed and is negative --> report and give Vit K and ffp and inr is elevated --> DC PROTONIX and also other drugs also reviewed as well --> appears baseline in the 50-100k range 2. Coagulopathy with portal hypertension, cirrhosis of liver, large volume ascites, requires paracentesis and requires vitamin K --> vit K prn basis --> on abx, vanc --> as per ID, appreciate their recs --> inr reviewed and now improved 3. Leukocytosis, likely secondary to underlying infection, ulceration seen by surgery, potentially related to underlying sepsis versus other causes such as SBP; but again has been seen by GI team --> s/p paracentesis and prn in the future --> on abx for right lower ext ulceration 4. AGNIESZKA, on IV fluids as needed 5. Acute encephalopathy --> pending eval with neuro if worsened 6. Septic shock. --> s/p abx 7. SNF placement Subjective Constitutional: Denies: no symptoms, chills, diaphoresis, fever, malaise, weakness, other HEENT: Denies: no symptoms, eye pain, blurred vision, tearing, double vision, ear pain, ear discharge, nose pain, nose congestion, throat pain, throat swelling, mouth pain, mouth swelling, other Cardiovascular: Denies: no symptoms, chest pain, edema, irregular heart rate, lightheadedness, palpitations, syncope, other Respiratory: Denies: no symptoms, cough, orthopnea, shortness of breath, SOB with excertion, SOB at rest, sputum, stridor, wheezing, other Gastrointestinal/Abdominal: Denies: no symptoms, abdomen distended, abdominal pain, black stools, tarry stools, blood in stool, constipated, diarrhea, difficulty swallowing, nausea, poor appetite, poor fluid intake, rectal bleeding , vomiting, other Genitourinary: Denies: no symptoms, burning, discharge, frequency, flank pain, hematuria, incontinence, pain, urgency, other Neurologic/Psychiatric: Denies: no symptoms, anxiety, depressed, emotional problems, headache, numbness, paresthesia, pre-existing deficit, seizure, tingling, tremors, weakness, other Endocrine: Denies: no symptoms, excessive sweating, flushing, intolerance to cold, intolerance to heat, increased hunger, increased thirst, increased urine, unexplained weight gain, unexplained weight loss, other Hematologic/Lymphatic: Denies: no symptoms, anemia, easy bleeding, easy bruising, other Allergies: Coded Allergies: No Known Allergies (Unverified , 04/29/18) Subjective c diff positive, is pending placement to snf Objective Last 24 Hour Vital Signs Date Time Temp Pulse Resp B/P (MAP) Pulse Ox O2 Delivery O2 Flow Rate FiO2 05/12/18 09:19 126/70 05/12/18 09:00 Room Air Room Air Room Air 05/12/18 08:00 97.9 97 20 126/70 (88) 97 97.9 05/12/18 07:03 Nasal Cannula 2.0 28 05/12/18 07:03 95 Nasal Cannula 2.0 28 05/12/18 04:00 98 05/12/18 04:00 97.3 94 20 123/70 (87) 96 97.3 05/12/18 00:00 97.9 88 20 127/61 (83) 98 97.9 05/12/18 00:00 89 05/11/18 22:00 76 18 96 2.0 28 05/11/18 21:00 Room Air Room Air Room Air 05/11/18 20:30 97.9 94 20 139/75 (96) 98 97.9 05/11/18 20:00 95 05/11/18 19:29 Nasal Cannula 2.0 28 05/11/18 19:29 96 Nasal Cannula 2.0 28 05/11/18 17:13 122/70 05/11/18 16:00 97.9 91 20 122/70 (87) 93 97.9 05/11/18 16:00 94 05/11/18 12:23 116/63 05/11/18 12:00 97.3 95 20 116/63 (80) 96 97.3 05/11/18 12:00 91 Intake and Output 05/11/18 05/12/18 19:00 07:00 Intake Total 1400.000 ml 75 ml Output Total 300 ml 350 ml Balance 1100.000 ml -275 ml IV Total 1400.000 ml 75 ml Output Urine Total 300 ml 350 ml Laboratory Tests 05/12/18 06:00: White Blood Count 12.8H, Red Blood Count 2.39L, Hemoglobin 7.6L, Hematocrit 22.8L, Mean Corpuscular Volume 95, Mean Corpuscular Hemoglobin 31.9H, Mean Corpuscular Hemoglobin Concent 33.4, Red Cell Distribution Width 16.6H, Platelet Count 73L, Mean Platelet Volume 7.0, Neutrophils (%) (Auto) , Lymphocytes (%) (Auto) , Monocytes (%) (Auto) , Eosinophils (%) (Auto) , Basophils (%) (Auto) , Differential Total Cells Counted 100, Neutrophils % ( Manual) 86H, Lymphocytes % (Manual) 6L, Monocytes % (Manual) 6, Eosinophils % ( Manual) 2, Basophils % (Manual) 0, Band Neutrophils 0, Platelet Estimate DecreasedL, Platelet Morphology Normal, Hypochromasia 1+, Anisocytosis 1+, Sodium Level 133L, Potassium Level 3.7, Chloride Level 103, Carbon Dioxide Level 29, Anion Gap 1L, Blood Urea Nitrogen 20H, Creatinine 1.2, Estimat Glomerular Filtration Rate > 60, Glucose Level 141H, Calcium Level 8.4L, Total Bilirubin 4.9H, Direct Bilirubin 1.9H, Aspartate Amino Transf (AST/SGOT) 46H, Alanine Aminotransferase (ALT/SGPT) 34, Alkaline Phosphatase 100, Total Protein 6.3L, Albumin 1.6L, Globulin 4.7, Albumin/Globulin Ratio 0.3L Height (Feet): 5 Height (Inches): 9.00 Weight (Pounds): 312 General Appearance: no apparent distress EENT: pharynx normal Neck: normal alignment Cardiovascular: regular rhythm Respiratory/Chest: normal breath sounds Abdomen: non tender Extremities: non-tender Edema: 1+ Leg (L), 1+ Leg (R) Edema: mild edema Neurologic: alert Skin: warm/dry Eric Irizarry MD May 12, 2018 10:25
--- NOTE | 2018-05-12 11:47 | General Progress Note ---
Assessment/Plan Assessment/Plan Assessment - UGIB - gastritis - Cirrhosis - alcoholic - portal HTN - no varicies on current EGD - presumed EtOH hepatitis - some recovery in labs noted - coagulopathy - ascites - s/p tap - sepsis, no SBP on paracentesis fluid - Resp failure - AMS, likely hepatic encephalopathy - hypoglycemia - guarded Recommendation: - advance diet - continue lactulose - Xifaxan - follow labs - broad abx - IV PPI - change to PO at d/c Subjective Allergies: Coded Allergies: No Known Allergies (Unverified , 04/29/18) Subjective Above noted d/w support staff no further bleeding very weak with PT evaluation Objective Last 24 Hour Vital Signs Date Time Temp Pulse Resp B/P (MAP) Pulse Ox O2 Delivery O2 Flow Rate FiO2 05/12/18 09:19 126/70 05/12/18 09:00 Room Air Room Air Room Air 05/12/18 08:00 97.9 97 20 126/70 (88) 97 97.9 05/12/18 08:00 93 05/12/18 07:03 Nasal Cannula 2.0 28 05/12/18 07:03 95 Nasal Cannula 2.0 28 05/12/18 04:00 98 05/12/18 04:00 97.3 94 20 123/70 (87) 96 97.3 05/12/18 00:00 97.9 88 20 127/61 (83) 98 97.9 05/12/18 00:00 89 05/11/18 22:00 76 18 96 2.0 28 05/11/18 21:00 Room Air Room Air Room Air 05/11/18 20:30 97.9 94 20 139/75 (96) 98 97.9 05/11/18 20:00 95 05/11/18 19:29 Nasal Cannula 2.0 28 05/11/18 19:29 96 Nasal Cannula 2.0 28 05/11/18 17:13 122/70 05/11/18 16:00 97.9 91 20 122/70 (87) 93 97.9 05/11/18 16:00 94 05/11/18 12:23 116/63 05/11/18 12:00 97.3 95 20 116/63 (80) 96 97.3 05/11/18 12:00 91 Intake and Output 05/11/18 05/12/18 19:00 07:00 Intake Total 1400.000 ml 75 ml Output Total 300 ml 350 ml Balance 1100.000 ml -275 ml IV Total 1400.000 ml 75 ml Output Urine Total 300 ml 350 ml Laboratory Tests 05/12/18 06:00: White Blood Count 12.8H, Red Blood Count 2.39L, Hemoglobin 7.6L, Hematocrit 22.8L, Mean Corpuscular Volume 95, Mean Corpuscular Hemoglobin 31.9H, Mean Corpuscular Hemoglobin Concent 33.4, Red Cell Distribution Width 16.6H, Platelet Count 73L, Mean Platelet Volume 7.0, Neutrophils (%) (Auto) , Lymphocytes (%) (Auto) , Monocytes (%) (Auto) , Eosinophils (%) (Auto) , Basophils (%) (Auto) , Differential Total Cells Counted 100, Neutrophils % ( Manual) 86H, Lymphocytes % (Manual) 6L, Monocytes % (Manual) 6, Eosinophils % ( Manual) 2, Basophils % (Manual) 0, Band Neutrophils 0, Platelet Estimate DecreasedL, Platelet Morphology Normal, Hypochromasia 1+, Anisocytosis 1+, Sodium Level 133L, Potassium Level 3.7, Chloride Level 103, Carbon Dioxide Level 29, Anion Gap 1L, Blood Urea Nitrogen 20H, Creatinine 1.2, Estimat Glomerular Filtration Rate > 60, Glucose Level 141H, Calcium Level 8.4L, Total Bilirubin 4.9H, Direct Bilirubin 1.9H, Aspartate Amino Transf (AST/SGOT) 46H, Alanine Aminotransferase (ALT/SGPT) 34, Alkaline Phosphatase 100, Total Protein 6.3L, Albumin 1.6L, Globulin 4.7, Albumin/Globulin Ratio 0.3L Height (Feet): 5 Height (Inches): 9.00 Weight (Pounds): 312 Objective WDWN WM NCAT supple CTA RRR Soft / Obese trace edema sedated Pierre Suggs MD May 12, 2018 11:47
[2018-05-12 12:00] VITALS: BP 127/77
[2018-05-12 14:25] LABS: HEMATOCRIT 23.3 % (42.0-52.0); HEMOGLOBIN 7.8 G/DL (14.2-18.0); MEAN CORPUSCULAR VOLUME 95 FL (80-99); PLATELET COUNT 73 K/UL (150-450); RED BLOOD COUNT 2.45 M/UL (4.70-6.10); RED CELL DISTRIBUTION WIDTH 16.7 % (11.6-14.8); WHITE BLOOD COUNT 13.9 K/UL (4.8-10.8)
--- NOTE | 2018-05-12 14:28 | Pulmonology Progress Note ---
Assessment/Plan Problems: (1) Wound of lower extremity (2) Gram negative sepsis (3) Acute respiratory failure without hypercapnia (4) Acute encephalopathy (5) Lactic acid acidosis (6) Cirrhosis of liver (7) Cellulitis (8) Altered mental state (9) Shock, septic (10) Acute kidney failure (11) GI bleeding Assessment/Plan Optimize pulmonary hygiene/mobilize as tolerated PRN O2 PRN Lasix Abx per ID (Flucon/Vanco/Zosyn) Lactulose/rifax/trental F/U GI recs, continue PPU Advance diet per GI Hold Hep SQ FC Subjective Allergies: Coded Allergies: No Known Allergies (Unverified , 04/29/18) Subjective Denies cough, congestion, SOB, no F/C, started on CLD by GI No further hematemesis Objective Last 24 Hour Vital Signs Date Time Temp Pulse Resp B/P (MAP) Pulse Ox O2 Delivery O2 Flow Rate FiO2 05/12/18 12:24 127/77 05/12/18 12:00 98.1 94 20 127/77 (94) 99 98.1 05/12/18 12:00 89 05/12/18 09:19 126/70 05/12/18 09:00 Room Air Room Air Room Air 05/12/18 08:00 97.9 97 20 126/70 (88) 97 97.9 05/12/18 08:00 93 05/12/18 07:03 Nasal Cannula 2.0 28 05/12/18 07:03 95 Nasal Cannula 2.0 28 05/12/18 04:00 98 05/12/18 04:00 97.3 94 20 123/70 (87) 96 97.3 05/12/18 00:00 97.9 88 20 127/61 (83) 98 97.9 05/12/18 00:00 89 05/11/18 22:00 76 18 96 2.0 28 05/11/18 21:00 Room Air Room Air Room Air 05/11/18 20:30 97.9 94 20 139/75 (96) 98 97.9 05/11/18 20:00 95 05/11/18 19:29 Nasal Cannula 2.0 28 05/11/18 19:29 96 Nasal Cannula 2.0 28 05/11/18 17:13 122/70 9/19/18 16:00 97.9 91 20 122/70 (87) 93 97.9 05/11/18 16:00 94 Intake and Output 05/11/18 05/12/18 19:00 07:00 Intake Total 1400.000 ml 75 ml Output Total 300 ml 350 ml Balance 1100.000 ml -275 ml IV Total 1400.000 ml 75 ml Output Urine Total 300 ml 350 ml General Appearance: no acute distress HEENT: normocephalic, atraumatic, anicteric Respiratory/Chest: chest wall non-tender, lungs clear, normal breath sounds, no respiratory distress Cardiovascular: normal peripheral pulses, normal rate, regular rhythm Abdomen: normal bowel sounds, soft, non tender, no organomegaly, non distended Extremities: no cyanosis, no clubbing, no edema, other - bLE dressed Laboratory Tests 05/12/18 06:00: White Blood Count 12.8H, Red Blood Count 2.39L, Hemoglobin 7.6L, Hematocrit 22.8L, Mean Corpuscular Volume 95, Mean Corpuscular Hemoglobin 31.9H, Mean Corpuscular Hemoglobin Concent 33.4, Red Cell Distribution Width 16.6H, Platelet Count 73L, Mean Platelet Volume 7.0, Neutrophils (%) (Auto) , Lymphocytes (%) (Auto) , Monocytes (%) (Auto) , Eosinophils (%) (Auto) , Basophils (%) (Auto) , Differential Total Cells Counted 100, Neutrophils % ( Manual) 86H, Lymphocytes % (Manual) 6L, Monocytes % (Manual) 6, Eosinophils % ( Manual) 2, Basophils % (Manual) 0, Band Neutrophils 0, Platelet Estimate DecreasedL, Platelet Morphology Normal, Hypochromasia 1+, Anisocytosis 1+, Sodium Level 133L, Potassium Level 3.7, Chloride Level 103, Carbon Dioxide Level 29, Anion Gap 1L, Blood Urea Nitrogen 20H, Creatinine 1.2, Estimat Glomerular Filtration Rate > 60, Glucose Level 141H, Calcium Level 8.4L, Total Bilirubin 4.9H, Direct Bilirubin 1.9H, Aspartate Amino Transf (AST/SGOT) 46H, Alanine Aminotransferase (ALT/SGPT) 34, Alkaline Phosphatase 100, Total Protein 6.3L, Albumin 1.6L, Globulin 4.7, Albumin/Globulin Ratio 0.3L 05/12/18 14:15: White Blood Count 13.9H, Red Blood Count 2.45L, Hemoglobin 7.8L, Hematocrit 23.3L, Mean Corpuscular Volume 95, Mean Corpuscular Hemoglobin 31.8H, Mean Corpuscular Hemoglobin Concent 33.5, Red Cell Distribution Width 16.7H, Platelet Count 73L, Mean Platelet Volume 6.4L, Neutrophils (%) (Auto) , Lymphocytes (%) (Auto) , Monocytes (%) (Auto) , Eosinophils (%) (Auto) , Basophils (%) (Auto) , Neutrophils % (Manual) [Pending], Lymphocytes % (Manual) [Pending], Platelet Estimate [Pending], Platelet Morphology [Pending] Current Medications Medications (Trade) Dose Ordered Sig/Ry Route PRN Reason Start Time Stop Time Status Last Admin Dose Admin Chlorhexidine Gluconate (Fatemeh-Hex 2%) 1 applic DAILY@1999 TOPIC 05/10/18 20:00 06/09/18 19:59 05/11/18 21:11 Fluconazole/ Sodium Chloride 100 ml @ 100 mls/hr Q24H IV 05/10/18 18:00 05/17/18 17:59 05/11/18 17:08 Lactulose (Cephulac) 20 gm THREE TIMES A DAY ORAL 05/08/18 09:00 05/30/18 12:59 05/12/18 12:24 Ondansetron HCl (Zofran) 4 mg Q6H PRN IVP Nausea & Vomiting 05/10/18 01:30 06/09/18 01:29 05/10/18 01:29 Pantoprazole (Protonix) 40 mg Q12H IVP 05/10/18 07:00 06/09/18 06:59 05/12/18 06:18 Pentoxifylline (TRENtal) 400 mg THREE TIMES A DAY ORAL 05/07/18 18:00 05/31/18 08:59 05/12/18 12:24 Piperacillin Sod/ Tazobactam Sod 3.375 gm/Dextrose 100 ml @ 25 mls/hr EVERY 8 HOURS IVPB 05/10/18 22:00 05/15/18 21:59 05/12/18 14:06 Rifaximin (Xifaxan) 550 mg EVERY 12 HOURS ORAL 05/09/18 22:30 05/16/18 22:29 05/12/18 09:19 Vancomycin HCl (Vanco rx to dose) 1 ea DAILY PRN MISC Per rx protocol 05/10/18 14:30 06/09/18 14:29 Vancomycin HCl 1 gm/Dextrose 275 ml @ 183.708 mls/hr Q12HR@0400,1600 IVPB 05/10/18 16:00 05/15/18 15:59 05/12/18 04:21 Mario Rasmussen MD May 12, 2018 14:28
[2018-05-12 16:00] VITALS: BP 118/66
--- NOTE | 2018-05-12 18:45 | Infectious Diseases Prog Note ---
Assessment/Plan Assessment/Plan ASSESSMENT AND PLAN: 1. sepsis, shock, providencia bacteremia, mrsa pna, mrsa/proteus right leg wound infection, right leg cellulitis, gib, leukocytosis, fevers s/p bronchoscopy, sc-yeast, fungemia risk, leukocytosis better, chest x-ray better, fevers resolved - vancomycin and zosyn, diflucan for 5 days - monitor labs and chest x-ray, f/u cultures - off vent - off pressors - surveillance blood cultures negative - chest x-ray better and stable 2. Liver cirrhosis. 3. Portal hypertension. 4. Ascites. 5. Anemia. 6. Thrombocytopenia. 7. Respiratory failure. 8. Low blood pressure. 9. Sepsis, shock. 10. Varices. 11. ETOH hepatitis. 12. Coagulopathy. 13. Altered mental status 14. hepatic encephalopathy 15. Past medical history noted. 16. He has no known allergies. 17. Social history is presumptively I think positive for ETOH. Cannot assess smoking or IV drug abuse. 18. Family history is noncontributory. 19. MAR was noted. 20. Case discussed with RN. 21. ICU care. 22. Case discussed with Dr. Rasmussen. 23. Continue treatment per primary consultants. 24. Poor prognosis. 25. Orders were entered and noted. 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 Subjective Constitutional: Denies: fever HEENT: Denies: congestion Respiratory: Denies: shortness of breath Cardiovascular: Denies: chest pain Gastrointestinal/Abdominal: Denies: nausea, vomiting, diarrhea Genitourinary: Reports: other - + grimm Neurologic: Denies: headache Psychiatric: Denies: depression Skin: Denies: rash Hematologic: Denies: bleeding Musculoskeletal: Denies: pain Allergies: Coded Allergies: No Known Allergies (Unverified , 04/29/18) Objective Vital Signs Last 24 Hour Vital Signs Date Time Temp Pulse Resp B/P (MAP) Pulse Ox O2 Delivery O2 Flow Rate FiO2 05/12/18 18:01 118/66 05/12/18 16:00 97.7 96 20 118/66 (83) 94 97.7 05/12/18 15:30 93 05/12/18 12:24 127/77 05/12/18 12:00 98.1 94 20 127/77 (94) 99 98.1 05/12/18 12:00 89 05/12/18 09:19 126/70 05/12/18 09:00 Room Air Room Air Room Air 05/12/18 08:00 97.9 97 20 126/70 (88) 97 97.9 05/12/18 08:00 93 05/12/18 07:03 Nasal Cannula 2.0 28 05/12/18 07:03 95 Nasal Cannula 2.0 28 05/12/18 04:00 98 05/12/18 04:00 97.3 94 20 123/70 (87) 96 97.3 05/12/18 00:00 97.9 88 20 127/61 (83) 98 97.9 05/12/18 00:00 89 05/11/18 22:00 76 18 96 2.0 28 05/11/18 21:00 Room Air Room Air Room Air 05/11/18 20:30 97.9 94 20 139/75 (96) 98 97.9 05/11/18 20:00 95 05/11/18 19:29 Nasal Cannula 2.0 28 05/11/18 19:29 96 Nasal Cannula 2.0 28 Height (Feet): 5 Height (Inches): 9.00 Weight (Pounds): 312 General Appearance: no acute distress HEENT: normocephalic, atraumatic, anicteric, mucous membranes moist Respiratory/Chest: crackles/rales, rhonchi - bilaterally Cardiovascular: normal rate, regular rhythm, no gallop/murmur, no JVD Abdomen: normal bowel sounds, distended Genitourinary: other - + grimm Extremities: no cyanosis Skin: no rash 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 Right internal jugular, grossly unchanged. Nasogastric tube in gastric cavity. Endotracheal tube 5 cm above the pamela. Increasing opacity in bilateral mid to lower lung zones. No pleural effusions. The visualized osseous structures are within normal limits. IMPRESSION: Stable tubes and lines as outlined above. Increasing opacity in bilateral mid to lower lung zones. CT imaging noted - reports noted 05/03/18 - Chest x-ray - Findings: Patchy, heterogeneous airspace opacities and interstitial opacities identified. Heart is stable. Tubes and lines are stable. IMPRESSION: Patchy lung disease likely on the basis of pulmonary edema. Infiltrates not excluded. Chest x-ray - 05/08 - FINDINGS: Lungs: Low lung volumes, which may be related to shallow inspiration. Bilateral perihilar opacities with diffuse patchy pulmonary opacities, suggesting pulmonary edema. Pleural space: Unremarkable. The costophrenic angles are sharp. No visible pneumothorax. Heart: Unremarkable. No cardiomegaly. Mediastinum: Unremarkable. Bones/joints: Unremarkable. IMPRESSION: 1. Low lung volumes, which may be related to shallow inspiration. 2. Bilateral perihilar opacities with diffuse patchy pulmonary opacities, suggesting pulmonary edema. Cannot exclude an underlying pneumonia. Chest x-ray - 05/10/18 Comparison: 05/08/2018 Findings: Interim improvement but persistence of previously demonstrated interstitial edema. There is some blunting of the right costophrenic sulcus, likely a small amount of pleural fluid. No new infiltrates. Heart size is normal Impression: Improved but persistent pulmonary interstitial edema, over 2 days Possible small right pleural effusion Chest x-ray - 05/12 - Comparison: 05/10/2018 Findings: Inspiration is suboptimal. There is atelectasis in the left perihilar region. Generalized mild interstitial edema persists, unchanged. Interim placement of right arm PICC. Impression: Hypoventilatory exam with left perihilar atelectasis Interim PICC placement Unchanged mild interstitial edema Microbiology Date/Time Source Procedure Growth Status 05/06/18 18:00 Blood Blood Culture - Final NO GROWTH AFTER 5 DAYS Complete 05/03/18 15:35 Ascities Fluid Gram Stain - Final Complete 05/03/18 15:35 Ascities Fluid Body Fluid Culture - Final NO GROWTH Complete 04/30/18 04:00 Wound Gram Stain - Final Complete 04/30/18 04:00 Wound Culture - Final Proteus Mirabilis Staphylococcus Aureus - Mrsa Complete 05/06/18 15:00 Bronchial Washings Not Specified Gram Stain - Final Complete 05/06/18 15:00 Bronchial Aspirate Culture - Final Mariah Albicans Mariah Dubliniensis Complete 05/04/18 05:00 Stool Clostridium difficile Toxin Assay - Final Complete 04/29/18 17:00 Rectum VRE Culture - Final Enterococcus Faecalis - Vre Complete Laboratory Tests Test 05/12/18 06:00 05/12/18 14:15 05/12/18 14:57 White Blood Count 12.8 K/UL (4.8-10.8) H 13.9 K/UL (4.8-10.8) H Red Blood Count 2.39 M/UL (4.70-6.10) L 2.45 M/UL (4.70-6.10) L Hemoglobin 7.6 G/DL (14.2-18.0) L 7.8 G/DL (14.2-18.0) L Hematocrit 22.8 % (42.0-52.0) L 23.3 % (42.0-52.0) L Mean Corpuscular Volume 95 FL (80-99) 95 FL (80-99) Mean Corpuscular Hemoglobin 31.9 PG (27.0-31.0) H 31.8 PG (27.0-31.0) H Mean Corpuscular Hemoglobin Concent 33.4 G/DL (32.0-36.0) 33.5 G/DL (32.0-36.0) Red Cell Distribution Width 16.6 % (11.6-14.8) H 16.7 % (11.6-14.8) H Platelet Count 73 K/UL (150-450) L 73 K/UL (150-450) L Mean Platelet Volume 7.0 FL (6.5-10.1) 6.4 FL (6.5-10.1) L Neutrophils (%) (Auto) % (45.0-75.0) % (45.0-75.0) Lymphocytes (%) (Auto) % (20.0-45.0) % (20.0-45.0) Monocytes (%) (Auto) % (1.0-10.0) % (1.0-10.0) Eosinophils (%) (Auto) % (0.0-3.0) % (0.0-3.0) Basophils (%) (Auto) % (0.0-2.0) % (0.0-2.0) Differential Total Cells Counted 100 100 Neutrophils % (Manual) 86 % (45-75) H 82 % (45-75) H Lymphocytes % (Manual) 6 % (20-45) L 10 % (20-45) L Monocytes % (Manual) 6 % (1-10) 6 % (1-10) Eosinophils % (Manual) 2 % (0-3) 2 % (0-3) Basophils % (Manual) 0 % (0-2) 0 % (0-2) Band Neutrophils 0 % (0-8) 0 % (0-8) Platelet Estimate Decreased L Decreased L Platelet Morphology Normal Normal Hypochromasia 1+ 1+ Anisocytosis 1+ 1+ Sodium Level 133 MMOL/L (136-145) L Potassium Level 3.7 MMOL/L (3.5-5.1) Chloride Level 103 MMOL/L (98-107) Carbon Dioxide Level 29 MMOL/L (21-32) Anion Gap 1 mmol/L (5-15) L Blood Urea Nitrogen 20 mg/dL (7-18) H Creatinine 1.2 MG/DL (0.55-1.30) Estimat Glomerular Filtration Rate > 60 mL/min (>60) Glucose Level 141 MG/DL (74-106) H Calcium Level 8.4 MG/DL (8.5-10.1) L Total Bilirubin 4.9 MG/DL (0.2-1.0) H Direct Bilirubin 1.9 MG/DL (0.0-0.3) H Aspartate Amino Transf (AST/SGOT) 46 U/L (15-37) H Alanine Aminotransferase (ALT/SGPT) 34 U/L (12-78) Alkaline Phosphatase 100 U/L (46-116) Total Protein 6.3 G/DL (6.4-8.2) L Albumin 1.6 G/DL (3.4-5.0) L Globulin 4.7 g/dL Albumin/Globulin Ratio 0.3 (1.0-2.7) L Vancomycin Level Trough 18.5 ug/mL (5.0-12.0) H Current Medications Medications (Trade) Dose Ordered Sig/Ry Route PRN Reason Start Time Stop Time Status Last Admin Dose Admin Chlorhexidine Gluconate (Fatemeh-Hex 2%) 1 applic DAILY@1999 TOPIC 05/10/18 20:00 06/09/18 19:59 05/11/18 21:11 Fluconazole/ Sodium Chloride 100 ml @ 100 mls/hr Q24H IV 05/10/18 18:00 9/25/18 17:59 05/12/18 17:31 Lactulose (Cephulac) 20 gm THREE TIMES A DAY ORAL 05/08/18 09:00 05/30/18 12:59 05/12/18 12:24 Ondansetron HCl (Zofran) 4 mg Q6H PRN IVP Nausea & Vomiting 05/10/18 01:30 06/09/18 01:29 05/10/18 01:29 Pantoprazole (Protonix) 40 mg Q12H IVP 05/10/18 07:00 06/09/18 06:59 05/12/18 18:01 Pentoxifylline (TRENtal) 400 mg THREE TIMES A DAY ORAL 05/07/18 18:00 05/31/18 08:59 05/12/18 18:01 Piperacillin Sod/ Tazobactam Sod 3.375 gm/Dextrose 100 ml @ 25 mls/hr EVERY 8 HOURS IVPB 05/10/18 22:00 05/15/18 21:59 05/12/18 14:06 Rifaximin (Xifaxan) 550 mg EVERY 12 HOURS ORAL 05/09/18 22:30 05/16/18 22:29 05/12/18 09:19 Vancomycin HCl (Vanco rx to dose) 1 ea DAILY PRN MISC Per rx protocol 05/10/18 14:30 06/09/18 14:29 Vancomycin HCl 1 gm/Dextrose 275 ml @ 183.708 mls/hr Q12HR@0400,1600 IVPB 05/10/18 16:00 05/15/18 15:59 05/12/18 16:03 Doris Ramos MD May 12, 2018 18:45
[2018-05-12 20:00] VITALS: BP 124/73
[2018-05-12] MEDS: Dyna-Hex 2% Top Sol 2oz TOPIC SCH (21:04)
[2018-05-13] VITALS: BP 124/71
[2018-05-13 04:00] VITALS: BP 111/66
[2018-05-13] MEDS: Vancomycin 1 GM in D5W 275 ML IVPB SCH ×2 (04:00→16:29)
[2018-05-13] MEDS: Pantoprazole Inj IVP SCH ×2 (06:15→19:38)
[2018-05-13 06:30] LABS: HEMATOCRIT 22.4 % (42.0-52.0); HEMOGLOBIN 7.7 G/DL (14.2-18.0); MEAN CORPUSCULAR VOLUME 94 FL (80-99); PLATELET COUNT 76 K/UL (150-450); RED BLOOD COUNT 2.38 M/UL (4.70-6.10); RED CELL DISTRIBUTION WIDTH 16.6 % (11.6-14.8)
[2018-05-13 07:05] LABS: ALANINE AMINOTRANSFERASE 32 U/L (12-78); ALBUMIN 1.6 G/DL (3.4-5.0); ALBUMIN/GLOBULIN RATIO 0.3 (1.0-2.7); ALKALINE PHOSPHATASE 103 U/L (46-116); ANION GAP 5 mmol/L (5-15); ASPARTATE AMINO TRANSFERASE 45 U/L (15-37); BILIRUBIN,TOTAL 5.3 MG/DL (0.2-1.0); BLOOD UREA NITROGEN 17 mg/dL (7-18); CALCIUM 8.5 MG/DL (8.5-10.1); CARBON DIOXIDE 28 MMOL/L (21-32); CHLORIDE 101 MMOL/L (98-107); CREATININE 1.3 MG/DL (0.55-1.30); POTASSIUM 3.6 MMOL/L (3.5-5.1); SODIUM 134 MMOL/L (136-145)
[2018-05-13 08:00] VITALS: BP 134/78
[2018-05-13] MEDS: Lactulose 20gm/30ml UDC ORAL SCH ×4 (08:46→18:46)
--- NOTE | 2018-05-13 09:57 | General Progress Note ---
Assessment/Plan Assessment/Plan ASSESSMENT AND RECS: 1. Thrombocytopenia, potentially secondary to septic shock and myleosuppresion, severe sepsis, end-organ damage, closely monitor, platelet count downtrending peripheral smear has been reviewed. The patient continues to have lactic acidosis, improved at this time and, in addition, imaging reviewed. 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 --> hepatitis and hiv reviewed and is negative --> report and give Vit K and ffp and inr is elevated --> DC PROTONIX and also other drugs also reviewed as well --> appears baseline in the 50-100k range 2. Coagulopathy with portal hypertension, cirrhosis of liver, large volume ascites, requires paracentesis and requires vitamin K --> vit K prn basis --> on abx, vanc --> as per ID, appreciate their recs --> inr reviewed and now improved 3. Leukocytosis, likely secondary to underlying infection, ulceration seen by surgery, potentially related to underlying sepsis versus other causes such as SBP; but again has been seen by GI team --> s/p paracentesis and prn in the future --> on abx for right lower ext ulceration 4. AGNIESZKA, on IV fluids as needed 5. Acute encephalopathy --> pending eval with neuro if worsened 6. Septic shock. --> s/p abx 7. SNF placement once found Greatly appreciate consultation Subjective Constitutional: Denies: no symptoms, chills, diaphoresis, fever, malaise, weakness, other Cardiovascular: Denies: no symptoms, chest pain, edema, irregular heart rate, lightheadedness, palpitations, syncope, other Respiratory: Denies: no symptoms, cough, orthopnea, shortness of breath, SOB with excertion, SOB at rest, sputum, stridor, wheezing, other Neurologic/Psychiatric: Denies: no symptoms, anxiety, depressed, emotional problems, headache, numbness, paresthesia, pre-existing deficit, seizure, tingling, tremors, weakness, other Endocrine: Denies: no symptoms, excessive sweating, flushing, intolerance to cold, intolerance to heat, increased hunger, increased thirst, increased urine, unexplained weight gain, unexplained weight loss, other Hematologic/Lymphatic: Denies: no symptoms, anemia, easy bleeding, easy bruising, other Allergies: Coded Allergies: No Known Allergies (Unverified , 04/29/18) Subjective c diff positive, diarrhea ongoing, is pending placement to snf Objective Last 24 Hour Vital Signs Date Time Temp Pulse Resp B/P (MAP) Pulse Ox O2 Delivery O2 Flow Rate FiO2 05/13/18 09:00 Room Air Room Air Room Air 05/13/18 08:46 134/78 05/13/18 08:00 98.1 103 30 134/78 (96) 94 98.1 05/13/18 04:00 97.8 97 20 111/66 (81) 93 97.8 05/13/18 00:00 98.1 95 20 124/71 (88) 97 98.1 05/12/18 23:26 96 27 99 Facial 30 05/12/18 21:00 Room Air Room Air Room Air 05/12/18 20:00 98.2 95 20 124/73 (90) 96 98.2 05/12/18 18:56 96 Nasal Cannula 2.0 28 05/12/18 18:56 Nasal Cannula 2.0 28 05/12/18 18:01 118/66 05/12/18 16:00 97.7 96 20 118/66 (83) 94 97.7 05/12/18 15:30 93 05/12/18 12:24 127/77 05/12/18 12:00 98.1 94 20 127/77 (94) 99 98.1 05/12/18 12:00 89 Intake and Output 05/12/18 05/13/18 19:00 07:00 Intake Total 775.000 ml 360 ml Output Total 600 ml 400 ml Balance 175.000 ml -40 ml Intake Oral 300 ml 360 ml IV Total 475.000 ml Output Urine Total 600 ml 400 ml # Bowel Movements 4 2 Laboratory Tests 05/12/18 14:15: White Blood Count 13.9H, Red Blood Count 2.45L, Hemoglobin 7.8L, Hematocrit 23.3L, Mean Corpuscular Volume 95, Mean Corpuscular Hemoglobin 31.8H, Mean Corpuscular Hemoglobin Concent 33.5, Red Cell Distribution Width 16.7H, Platelet Count 73L, Mean Platelet Volume 6.4L, Neutrophils (%) (Auto) , Lymphocytes (%) (Auto) , Monocytes (%) (Auto) , Eosinophils (%) (Auto) , Basophils (%) (Auto) , Differential Total Cells Counted 100, Neutrophils % ( Manual) 82H, Lymphocytes % (Manual) 10L, Monocytes % (Manual) 6, Eosinophils % ( Manual) 2, Basophils % (Manual) 0, Band Neutrophils 0, Platelet Estimate DecreasedL, Platelet Morphology Normal, Hypochromasia 1+, Anisocytosis 1+ 05/12/18 14:57: Vancomycin Level Trough 18.5H 05/13/18 05:40: White Blood Count 13.0H, Red Blood Count 2.38L, Hemoglobin 7.7L, Hematocrit 22.4L, Mean Corpuscular Volume 94, Mean Corpuscular Hemoglobin 32.3H, Mean Corpuscular Hemoglobin Concent 34.3, Red Cell Distribution Width 16.6H, Platelet Count 76L, Mean Platelet Volume 7.1, Neutrophils (%) (Auto) , Lymphocytes (%) (Auto) , Monocytes (%) (Auto) , Eosinophils (%) (Auto) , Basophils (%) (Auto) , Differential Total Cells Counted 100, Neutrophils % ( Manual) 94H, Lymphocytes % (Manual) 3L, Monocytes % (Manual) 3, Eosinophils % ( Manual) 0, Basophils % (Manual) 0, Band Neutrophils 0, Platelet Estimate DecreasedL, Platelet Morphology Normal, Anisocytosis 1+, Sodium Level 134L, Potassium Level 3.6, Chloride Level 101, Carbon Dioxide Level 28, Anion Gap 5, Blood Urea Nitrogen 17, Creatinine 1.3, Estimat Glomerular Filtration Rate > 60 , Glucose Level 119H, Calcium Level 8.5, Total Bilirubin 5.3H, Direct Bilirubin 2.0H, Aspartate Amino Transf (AST/SGOT) 45H, Alanine Aminotransferase (ALT/SGPT ) 32, Alkaline Phosphatase 103, Total Protein 6.4, Albumin 1.6L, Globulin 4.8, Albumin/Globulin Ratio 0.3L Height (Feet): 5 Height (Inches): 9.00 Weight (Pounds): 319 General Appearance: no apparent distress EENT: normal ENT inspection Neck: supple Cardiovascular: normal rate Respiratory/Chest: lungs clear Abdomen: non tender Extremities: non-tender Eric Irizarry MD May 13, 2018 09:57
[2018-05-13 11:17] LABS: INR 2.3 (0.9-1.1)
[2018-05-13 12:00] VITALS: BP 122/76
--- NOTE | 2018-05-13 13:04 | General Progress Note ---
Assessment/Plan Assessment/Plan [place] [facility] [place]oqu[place] provided ro/st Subjective Date patient seen: May 13, 2018 Neurologic/Psychiatric: Reports: anxiety, depressed, emotional problems Allergies: Coded Allergies: No Known Allergies (Unverified , 04/29/18) Subjective the pt is nauseous has periods of agitation Objective Last 24 Hour Vital Signs Date Time Temp Pulse Resp B/P (MAP) Pulse Ox O2 Delivery O2 Flow Rate FiO2 05/13/18 12:00 97.4 105 28 122/76 (91) 94 97.4 05/13/18 10:30 94 Nasal Cannula 2.0 28 05/13/18 10:30 Nasal Cannula 2.0 28 05/13/18 09:00 Room Air Room Air Room Air 05/13/18 08:46 134/78 05/13/18 08:00 98.1 103 30 134/78 (96) 94 98.1 05/13/18 04:00 97.8 97 20 111/66 (81) 93 97.8 05/13/18 00:00 98.1 95 20 124/71 (88) 97 98.1 05/12/18 23:26 96 27 99 Facial 30 05/12/18 21:00 Room Air Room Air Room Air 05/12/18 20:00 98.2 95 20 124/73 (90) 96 98.2 05/12/18 18:56 96 Nasal Cannula 2.0 28 05/12/18 18:56 Nasal Cannula 2.0 28 05/12/18 18:01 118/66 05/12/18 16:00 97.7 96 20 118/66 (83) 94 97.7 05/12/18 15:30 93 Intake and Output 05/12/18 05/13/18 19:00 07:00 Intake Total 775.000 ml 385 ml Output Total 600 ml 400 ml Balance 175.000 ml -15 ml Intake Oral 300 ml 360 ml IV Total 475.000 ml 25 ml Output Urine Total 600 ml 400 ml # Bowel Movements 4 2 Laboratory Tests 05/12/18 14:15: White Blood Count 13.9H, Red Blood Count 2.45L, Hemoglobin 7.8L, Hematocrit 23.3L, Mean Corpuscular Volume 95, Mean Corpuscular Hemoglobin 31.8H, Mean Corpuscular Hemoglobin Concent 33.5, Red Cell Distribution Width 16.7H, Platelet Count 73L, Mean Platelet Volume 6.4L, Neutrophils (%) (Auto) , Lymphocytes (%) (Auto) , Monocytes (%) (Auto) , Eosinophils (%) (Auto) , Basophils (%) (Auto) , Differential Total Cells Counted 100, Neutrophils % ( Manual) 82H, Lymphocytes % (Manual) 10L, Monocytes % (Manual) 6, Eosinophils % ( Manual) 2, Basophils % (Manual) 0, Band Neutrophils 0, Platelet Estimate DecreasedL, Platelet Morphology Normal, Hypochromasia 1+, Anisocytosis 1+ 05/12/18 14:57: Vancomycin Level Trough 18.5H 05/13/18 05:40: White Blood Count 13.0H, Red Blood Count 2.38L, Hemoglobin 7.7L, Hematocrit 22.4L, Mean Corpuscular Volume 94, Mean Corpuscular Hemoglobin 32.3H, Mean Corpuscular Hemoglobin Concent 34.3, Red Cell Distribution Width 16.6H, Platelet Count 76L, Mean Platelet Volume 7.1, Neutrophils (%) (Auto) , Lymphocytes (%) (Auto) , Monocytes (%) (Auto) , Eosinophils (%) (Auto) , Basophils (%) (Auto) , Differential Total Cells Counted 100, Neutrophils % ( Manual) 94H, Lymphocytes % (Manual) 3L, Monocytes % (Manual) 3, Eosinophils % ( Manual) 0, Basophils % (Manual) 0, Band Neutrophils 0, Platelet Estimate DecreasedL, Platelet Morphology Normal, Anisocytosis 1+, Sodium Level 134L, Potassium Level 3.6, Chloride Level 101, Carbon Dioxide Level 28, Anion Gap 5, Blood Urea Nitrogen 17, Creatinine 1.3, Estimat Glomerular Filtration Rate > 60 , Glucose Level 119H, Calcium Level 8.5, Total Bilirubin 5.3H, Direct Bilirubin 2.0H, Aspartate Amino Transf (AST/SGOT) 45H, Alanine Aminotransferase (ALT/SGPT ) 32, Alkaline Phosphatase 103, Total Protein 6.4, Albumin 1.6L, Globulin 4.8, Albumin/Globulin Ratio 0.3L 05/13/18 10:40: Prothrombin Time 23.2H, Prothromb Time International Ratio 2.3H Height (Feet): 5 Height (Inches): 9.00 Weight (Pounds): 319 General Appearance: no apparent distress, alert Farhadi,Pantea MD May 13, 2018 13:04
--- NOTE | 2018-05-13 13:53 | General Surgery Progress Note ---
General Surgery-Progress Note Subjective Additional Comments leukocytosis improving Objective Last 24 Hour Vital Signs Date Time Temp Pulse Resp B/P (MAP) Pulse Ox O2 Delivery O2 Flow Rate FiO2 05/13/18 13:46 122/76 05/13/18 12:00 97.4 105 28 122/76 (91) 94 97.4 05/13/18 10:30 94 Nasal Cannula 2.0 28 05/13/18 10:30 Nasal Cannula 2.0 28 05/13/18 09:00 Room Air Room Air Room Air 05/13/18 08:46 134/78 05/13/18 08:00 98.1 103 30 134/78 (96) 94 98.1 05/13/18 04:00 97.8 97 20 111/66 (81) 93 97.8 05/13/18 00:00 98.1 95 20 124/71 (88) 97 98.1 05/12/18 23:26 96 27 99 Facial 30 05/12/18 21:00 Room Air Room Air Room Air 05/12/18 20:00 98.2 95 20 124/73 (90) 96 98.2 05/12/18 18:56 96 Nasal Cannula 2.0 28 05/12/18 18:56 Nasal Cannula 2.0 28 05/12/18 18:01 118/66 05/12/18 16:00 97.7 96 20 118/66 (83) 94 97.7 05/12/18 15:30 93 I&O Intake and Output 05/12/18 05/13/18 19:00 07:00 Intake Total 775.000 ml 385 ml Output Total 600 ml 400 ml Balance 175.000 ml -15 ml Intake Oral 300 ml 360 ml IV Total 475.000 ml 25 ml Output Urine Total 600 ml 400 ml # Bowel Movements 4 2 Dressing: dry Wound: other Drains: none Cardiovascular: RSR Respiratory: clear Abdomen: soft, non-tender, present bowel sounds Extremities: other Laboratory Tests Test 05/12/18 14:15 05/12/18 14:57 05/13/18 05:40 05/13/18 10:40 White Blood Count 13.9 K/UL (4.8-10.8) H 13.0 K/UL (4.8-10.8) H Red Blood Count 2.45 M/UL (4.70-6.10) L 2.38 M/UL (4.70-6.10) L Hemoglobin 7.8 G/DL (14.2-18.0) L 7.7 G/DL (14.2-18.0) L Hematocrit 23.3 % (42.0-52.0) L 22.4 % (42.0-52.0) L Mean Corpuscular Volume 95 FL (80-99) 94 FL (80-99) Mean Corpuscular Hemoglobin 31.8 PG (27.0-31.0) H 32.3 PG (27.0-31.0) H Mean Corpuscular Hemoglobin Concent 33.5 G/DL (32.0-36.0) 34.3 G/DL (32.0-36.0) Red Cell Distribution Width 16.7 % (11.6-14.8) H 16.6 % (11.6-14.8) H Platelet Count 73 K/UL (150-450) L 76 K/UL (150-450) L Mean Platelet Volume 6.4 FL (6.5-10.1) L 7.1 FL (6.5-10.1) Neutrophils (%) (Auto) % (45.0-75.0) % (45.0-75.0) Lymphocytes (%) (Auto) % (20.0-45.0) % (20.0-45.0) Monocytes (%) (Auto) % (1.0-10.0) % (1.0-10.0) Eosinophils (%) (Auto) % (0.0-3.0) % (0.0-3.0) Basophils (%) (Auto) % (0.0-2.0) % (0.0-2.0) Differential Total Cells Counted 100 100 Neutrophils % (Manual) 82 % (45-75) H 94 % (45-75) H Lymphocytes % (Manual) 10 % (20-45) L 3 % (20-45) L Monocytes % (Manual) 6 % (1-10) 3 % (1-10) Eosinophils % (Manual) 2 % (0-3) 0 % (0-3) Basophils % (Manual) 0 % (0-2) 0 % (0-2) Band Neutrophils 0 % (0-8) 0 % (0-8) Platelet Estimate Decreased L Decreased L Platelet Morphology Normal Normal Hypochromasia 1+ Anisocytosis 1+ 1+ Vancomycin Level Trough 18.5 ug/mL (5.0-12.0) H Sodium Level 134 MMOL/L (136-145) L Potassium Level 3.6 MMOL/L (3.5-5.1) Chloride Level 101 MMOL/L (98-107) Carbon Dioxide Level 28 MMOL/L (21-32) Anion Gap 5 mmol/L (5-15) Blood Urea Nitrogen 17 mg/dL (7-18) Creatinine 1.3 MG/DL (0.55-1.30) Estimat Glomerular Filtration Rate > 60 mL/min (>60) Glucose Level 119 MG/DL (74-106) H Calcium Level 8.5 MG/DL (8.5-10.1) Total Bilirubin 5.3 MG/DL (0.2-1.0) H Direct Bilirubin 2.0 MG/DL (0.0-0.3) H Aspartate Amino Transf (AST/SGOT) 45 U/L (15-37) H Alanine Aminotransferase (ALT/SGPT) 32 U/L (12-78) Alkaline Phosphatase 103 U/L (46-116) Total Protein 6.4 G/DL (6.4-8.2) Albumin 1.6 G/DL (3.4-5.0) L Globulin 4.8 g/dL Albumin/Globulin Ratio 0.3 (1.0-2.7) L Prothrombin Time 23.2 SEC (9.30-11.50) H Prothromb Time International Ratio 2.3 (0.9-1.1) H Plan Problems: (1) Wound of lower extremity Assessment & Plan: Multiple venous stasis ulcers of the right lower extremity. Bilateral lower extremity edema Full thickness ulcer noted to lateral right lower extremity (L)7.5cm x (W02.7cm x (D)0.2cm with wound bed grace,(+) maceration. no odor noted .Minimal serous exudate noted Full thickness ulcer noted to medial right lower extremity (L)2.5cm x (W)3cm x ( D)0.4cm with wound bed grace and slightly macerated borders .Minimal serous exudate noted Full thickness ulcer posterior R tibia (L)2.5cm x (W)1cm x (D)0.2cm with wound bed grace ,moist with minimal serous exudate. Hemosiderin noted to bilat lower ext with xeroses. Bilateral heels are dry but blanching. L lower ext noted to be oozing minimal serous exudate but no ulcerations noted. Non-blanching erythema noted wounds present upon admission Plan: Cleanse Ulcerations lateral,medial and posterior RLE with Saline.Apply Calcium Alginate to wounds with ABD and wrap with Kerlix from base of toes daily and prn if soiled. Cavilon wipe to sacrum and cover with foam drsg .Change foam drsg [id number] day and prn. Off-load heels with pillows . Support Surface overlay on bed. Reposition at least every 2hours as tolerated. (2) Shock, septic Logan Gracia May 13, 2018 13:53
[2018-05-13] MEDS: Piperacillin/Tazobactam 3.375 GM in D5W 110 ML IVPB SCH ×2 (14:22→22:10)
[2018-05-13 16:00] VITALS: BP 122/56
--- NOTE | 2018-05-13 19:04 | Pulmonology Progress Note ---
Assessment/Plan Problems: (1) Wound of lower extremity (2) Gram negative sepsis (3) Acute respiratory failure without hypercapnia (4) Acute encephalopathy (5) Lactic acid acidosis (6) Cirrhosis of liver (7) Cellulitis (8) Altered mental state (9) Shock, septic (10) Acute kidney failure (11) GI bleeding Assessment/Plan Optimize pulmonary hygiene/mobilize as tolerated PRN O2 PRN Lasix Abx per ID (Flucon/Vanco/Zosyn) Lactulose/rifax/trental F/U GI recs, continue PPI Diet per GI ? resume Hep SQ FC Dispo planning to SNF Subjective Allergies: Coded Allergies: No Known Allergies (Unverified , 04/29/18) Subjective Tx to 4E, no cough, no SOB, no FC Objective Last 24 Hour Vital Signs Date Time Temp Pulse Resp B/P (MAP) Pulse Ox O2 Delivery O2 Flow Rate FiO2 05/13/18 18:50 122/56 05/13/18 16:00 98.0 101 20 122/56 (78) 95 98.0 05/13/18 13:46 122/76 05/13/18 12:00 97.4 105 28 122/76 (91) 94 97.4 05/13/18 10:30 94 Nasal Cannula 2.0 28 05/13/18 10:30 Nasal Cannula 2.0 28 05/13/18 09:00 Room Air Room Air Room Air 05/13/18 08:46 134/78 05/13/18 08:00 98.1 103 30 134/78 (96) 94 98.1 05/13/18 04:00 97.8 97 20 111/66 (81) 93 97.8 05/13/18 00:00 98.1 95 20 124/71 (88) 97 98.1 05/12/18 23:26 96 27 99 Facial 30 05/12/18 21:00 Room Air Room Air Room Air 05/12/18 20:00 98.2 95 20 124/73 (90) 96 98.2 Intake and Output 05/12/18 05/13/18 19:00 07:00 Intake Total 775.000 ml 385 ml Output Total 600 ml 400 ml Balance 175.000 ml -15 ml Intake Oral 300 ml 360 ml IV Total 475.000 ml 25 ml Output Urine Total 600 ml 400 ml # Bowel Movements 4 2 General Appearance: WD/WN, no acute distress HEENT: normocephalic, atraumatic, anicteric, mucous membranes moist Respiratory/Chest: chest wall non-tender, lungs clear, normal breath sounds, no respiratory distress Cardiovascular: normal peripheral pulses, normal rate, regular rhythm Abdomen: normal bowel sounds, soft, non tender, no organomegaly, non distended , no mass Extremities: no cyanosis, no clubbing, other - bLe dressed Laboratory Tests 05/13/18 05:40: White Blood Count 13.0H, Red Blood Count 2.38L, Hemoglobin 7.7L, Hematocrit 22.4L, Mean Corpuscular Volume 94, Mean Corpuscular Hemoglobin 32.3H, Mean Corpuscular Hemoglobin Concent 34.3, Red Cell Distribution Width 16.6H, Platelet Count 76L, Mean Platelet Volume 7.1, Neutrophils (%) (Auto) , Lymphocytes (%) (Auto) , Monocytes (%) (Auto) , Eosinophils (%) (Auto) , Basophils (%) (Auto) , Differential Total Cells Counted 100, Neutrophils % ( Manual) 94H, Lymphocytes % (Manual) 3L, Monocytes % (Manual) 3, Eosinophils % ( Manual) 0, Basophils % (Manual) 0, Band Neutrophils 0, Platelet Estimate DecreasedL, Platelet Morphology Normal, Anisocytosis 1+, Sodium Level 134L, Potassium Level 3.6, Chloride Level 101, Carbon Dioxide Level 28, Anion Gap 5, Blood Urea Nitrogen 17, Creatinine 1.3, Estimat Glomerular Filtration Rate > 60 , Glucose Level 119H, Calcium Level 8.5, Total Bilirubin 5.3H, Direct Bilirubin 2.0H, Aspartate Amino Transf (AST/SGOT) 45H, Alanine Aminotransferase (ALT/SGPT ) 32, Alkaline Phosphatase 103, Total Protein 6.4, Albumin 1.6L, Globulin 4.8, Albumin/Globulin Ratio 0.3L 05/13/18 10:40: Prothrombin Time 23.2H, Prothromb Time International Ratio 2.3H Current Medications Medications (Trade) Dose Ordered Sig/Ry Route PRN Reason Start Time Stop Time Status Last Admin Dose Admin Chlorhexidine Gluconate (Fatemeh-Hex 2%) 1 applic DAILY@1999 TOPIC 05/13/18 20:00 06/09/18 19:59 Fluconazole/ Sodium Chloride 100 ml @ 100 mls/hr Q24H IV 05/13/18 18:00 05/17/18 17:59 05/13/18 18:50 Lactulose (Cephulac) 20 gm THREE TIMES A DAY ORAL 05/13/18 09:00 05/30/18 12:59 Ondansetron HCl (Zofran) 4 mg Q6H PRN IVP Nausea & Vomiting 05/13/18 01:30 06/09/18 01:29 05/13/18 16:35 Pantoprazole (Protonix) 40 mg Q12H IVP 05/13/18 07:00 06/09/18 06:59 05/13/18 06:15 Pentoxifylline (TRENtal) 400 mg THREE TIMES A DAY ORAL 05/13/18 09:00 05/31/18 08:59 05/13/18 18:50 Piperacillin Sod/ Tazobactam Sod 3.375 gm/Dextrose 110 ml @ 27.5 mls/hr EVERY 8 HOURS IVPB 05/13/18 14:30 05/20/18 14:29 05/13/18 14:22 Rifaximin (Xifaxan) 550 mg EVERY 12 HOURS ORAL 05/13/18 09:00 05/16/18 22:29 05/13/18 08:46 Vancomycin HCl (Vanco rx to dose) 1 ea DAILY PRN MISC Per rx protocol 05/13/18 09:00 06/09/18 14:29 Vancomycin HCl 1 gm/Dextrose 275 ml @ 183.708 mls/hr Q12HR@0400,1600 IVPB 05/13/18 04:00 05/15/18 15:59 05/13/18 16:29 Mario Rasmussen MD May 13, 2018 19:04
[2018-05-13 20:00] VITALS: BP 124/69
[2018-05-13] MEDS: Dyna-Hex 2% Top Sol 2oz TOPIC SCH (20:59)
--- NOTE | 2018-05-13 21:02 | General Progress Note ---
Assessment/Plan Assessment/Plan Assessment - UGIB - gastritis - Cirrhosis - alcoholic - portal HTN - no varicies on current EGD - presumed EtOH hepatitis - some recovery in labs noted - coagulopathy - ascites - s/p tap - sepsis, no SBP on paracentesis fluid - Resp failure - AMS, likely hepatic encephalopathy - hypoglycemia - guarded Recommendation: - push po diet - continue lactulose - Xifaxan - follow labs - broad abx - IV PPI - change to PO at d/c Subjective Allergies: Coded Allergies: No Known Allergies (Unverified , 04/29/18) Subjective Above noted feels OK looking forward to d/c Objective Last 24 Hour Vital Signs Date Time Temp Pulse Resp B/P (MAP) Pulse Ox O2 Delivery O2 Flow Rate FiO2 05/13/18 19:43 Room Air 21 05/13/18 19:43 94 Room Air 21 05/13/18 18:50 122/56 05/13/18 16:00 98.0 101 20 122/56 (78) 95 98.0 05/13/18 13:46 122/76 05/13/18 12:00 97.4 105 28 122/76 (91) 94 97.4 05/13/18 10:30 94 Nasal Cannula 2.0 28 05/13/18 10:30 Nasal Cannula 2.0 28 05/13/18 09:00 Room Air Room Air Room Air 05/13/18 08:46 134/78 05/13/18 08:00 98.1 103 30 134/78 (96) 94 98.1 05/13/18 04:00 97.8 97 20 111/66 (81) 93 97.8 05/13/18 00:00 98.1 95 20 124/71 (88) 97 98.1 05/12/18 23:26 96 27 99 Facial 30 Intake and Output 05/12/18 05/13/18 19:00 07:00 Intake Total 775.000 ml 385 ml Output Total 600 ml 400 ml Balance 175.000 ml -15 ml Intake Oral 300 ml 360 ml IV Total 475.000 ml 25 ml Output Urine Total 600 ml 400 ml # Bowel Movements 4 2 Laboratory Tests 05/13/18 05:40: White Blood Count 13.0H, Red Blood Count 2.38L, Hemoglobin 7.7L, Hematocrit 22.4L, Mean Corpuscular Volume 94, Mean Corpuscular Hemoglobin 32.3H, Mean Corpuscular Hemoglobin Concent 34.3, Red Cell Distribution Width 16.6H, Platelet Count 76L, Mean Platelet Volume 7.1, Neutrophils (%) (Auto) , Lymphocytes (%) (Auto) , Monocytes (%) (Auto) , Eosinophils (%) (Auto) , Basophils (%) (Auto) , Differential Total Cells Counted 100, Neutrophils % ( Manual) 94H, Lymphocytes % (Manual) 3L, Monocytes % (Manual) 3, Eosinophils % ( Manual) 0, Basophils % (Manual) 0, Band Neutrophils 0, Platelet Estimate DecreasedL, Platelet Morphology Normal, Anisocytosis 1+, Sodium Level 134L, Potassium Level 3.6, Chloride Level 101, Carbon Dioxide Level 28, Anion Gap 5, Blood Urea Nitrogen 17, Creatinine 1.3, Estimat Glomerular Filtration Rate > 60 , Glucose Level 119H, Calcium Level 8.5, Total Bilirubin 5.3H, Direct Bilirubin 2.0H, Aspartate Amino Transf (AST/SGOT) 45H, Alanine Aminotransferase (ALT/SGPT ) 32, Alkaline Phosphatase 103, Total Protein 6.4, Albumin 1.6L, Globulin 4.8, Albumin/Globulin Ratio 0.3L 05/13/18 10:40: Prothrombin Time 23.2H, Prothromb Time International Ratio 2.3H Height (Feet): 5 Height (Inches): 9.00 Weight (Pounds): 319 Objective WDWN WM NCAT supple CTA RRR Soft / Obese trace edema sedated Pierre Suggs MD May 13, 2018 21:02
--- NOTE | 2018-05-13 21:56 | General Progress Note ---
Assessment/Plan Status: stable Assessment/Plan Septic shock due to Providencia bacteremia - PICC placed and started back on IV antibiotics--on vanco, zosyn, difucan x 5 days per ID Acute upper GI bleed w/ hematemesis - underwent EGD 05/10/18 which showed no bleeding varices but hemorrhagic gastritis, s/p epinephrine injection, cont PPI , transfuse for hgb<7 or active bleeding. Hgb stable at 7.7 Acute hypoxic respiratory failure - stable respiratory status. Decompensated alcoholic cirrhosis c/b ascites and hepatic encephalopathy - s/p therapeutic paracentesis this admission, continue rifaximin and lactulose. AGNIESZKA due to ATN from sepsis and hypotension - resolved. Acute metabolic encephalopathy - resolving, continue supportive measures Thrombocytopenia - multifactorial from ESLD, bone marrow suppression from septic shock, platelet counts improving. Coagulopathy - 2/2 cirrhosis, ctm LE ulcerations - surgery following for wound care, no evidence of cellulitis Hypoglycemia - likely in setting of liver failure, ctm Diarrhea - neg stool C. diff Deconditioning - PT/OT eval, likely needs SNF. SW/Cm consulted. Pt hesitant to d /c to SNF, prefers to go home. Home health ordered DVT Prophylaxis: SCD Code Status: Full Hospital Classification Declaration: Based on this initial evaluation, and depending on the patient's clinical course, I anticipate that this patient will require hospitalization for 2-3 days for IV abx and close respiratory/ hemodynamic monitoring. Disposition: Once the patient is stable to leave the hospital, I anticipate the patient will likely be discharged to the following environment: home with HH vs SNF I spent 40 minutes on this patient's case, and 21 minutes were dedicated to counseling and/or care coordination. Discussed with patient/family, nursing staff, SW/CM, GI, ID regarding clinical status, treatment course, and disposition planning. Time of note may not reflect time of encounter. Subjective Date patient seen: May 13, 2018 Time patient seen: 10:00 ROS Limited/Unobtainable: No Constitutional: Reports: no symptoms HEENT: Reports: no symptoms Cardiovascular: Reports: no symptoms Respiratory: Reports: no symptoms Gastrointestinal/Abdominal: Reports: no symptoms Genitourinary: Reports: no symptoms Neurologic/Psychiatric: Reports: no symptoms Endocrine: Reports: no symptoms Hematologic/Lymphatic: Reports: no symptoms Allergies: Coded Allergies: No Known Allergies (Unverified , 04/29/18) Subjective No acute o/n events Hgb stable More awake, alert. Denies pain, SOB Worked w/ PT yesterday. Discussed SNF, pt somewhat amenable but does prefer to go home Objective Last 24 Hour Vital Signs Date Time Temp Pulse Resp B/P (MAP) Pulse Ox O2 Delivery O2 Flow Rate FiO2 05/13/18 19:43 Room Air 21 05/13/18 19:43 94 Room Air 21 05/13/18 18:50 122/56 05/13/18 16:00 98.0 101 20 122/56 (78) 95 98.0 05/13/18 13:46 122/76 05/13/18 12:00 97.4 105 28 122/76 (91) 94 97.4 05/13/18 10:30 94 Nasal Cannula 2.0 28 05/13/18 10:30 Nasal Cannula 2.0 28 05/13/18 09:00 Room Air Room Air Room Air 05/13/18 08:46 134/78 05/13/18 08:00 98.1 103 30 134/78 (96) 94 98.1 05/13/18 04:00 97.8 97 20 111/66 (81) 93 97.8 05/13/18 00:00 98.1 95 20 124/71 (88) 97 98.1 05/12/18 23:26 96 27 99 Facial 30 Intake and Output 05/12/18 05/13/18 19:00 07:00 Intake Total 775.000 ml 385 ml Output Total 600 ml 400 ml Balance 175.000 ml -15 ml Intake Oral 300 ml 360 ml IV Total 475.000 ml 25 ml Output Urine Total 600 ml 400 ml # Bowel Movements 4 2 Laboratory Tests 05/13/18 05:40: White Blood Count 13.0H, Red Blood Count 2.38L, Hemoglobin 7.7L, Hematocrit 22.4L, Mean Corpuscular Volume 94, Mean Corpuscular Hemoglobin 32.3H, Mean Corpuscular Hemoglobin Concent 34.3, Red Cell Distribution Width 16.6H, Platelet Count 76L, Mean Platelet Volume 7.1, Neutrophils (%) (Auto) , Lymphocytes (%) (Auto) , Monocytes (%) (Auto) , Eosinophils (%) (Auto) , Basophils (%) (Auto) , Differential Total Cells Counted 100, Neutrophils % ( Manual) 94H, Lymphocytes % (Manual) 3L, Monocytes % (Manual) 3, Eosinophils % ( Manual) 0, Basophils % (Manual) 0, Band Neutrophils 0, Platelet Estimate DecreasedL, Platelet Morphology Normal, Anisocytosis 1+, Sodium Level 134L, Potassium Level 3.6, Chloride Level 101, Carbon Dioxide Level 28, Anion Gap 5, Blood Urea Nitrogen 17, Creatinine 1.3, Estimat Glomerular Filtration Rate > 60 , Glucose Level 119H, Calcium Level 8.5, Total Bilirubin 5.3H, Direct Bilirubin 2.0H, Aspartate Amino Transf (AST/SGOT) 45H, Alanine Aminotransferase (ALT/SGPT ) 32, Alkaline Phosphatase 103, Total Protein 6.4, Albumin 1.6L, Globulin 4.8, Albumin/Globulin Ratio 0.3L 05/13/18 10:40: Prothrombin Time 23.2H, Prothromb Time International Ratio 2.3H Height (Feet): 5 Height (Inches): 9.00 Weight (Pounds): 319 Objective General: alert, cooperative, no distress, appears stated age Head: normocephalic, without obvious abnormality, atraumatic Eyes: conjunctivae/corneas clear. PERRL, EOM's intact Throat: lips, mucosa, and tongue normal. MMM Neck: supple, symmetrical, trachea midline, and no JVD Lungs: clear to auscultation bilaterally Heart: regular rate and rhythm, S1, S2 normal, no murmur, click, rub or gallop Abdomen: soft, non-tender, some abd distention, no discrete fluid wave, bowel sounds normal Extremities: extremities normal, atraumatic, no cyanosis, +BLE edema Pulses: 2+ and symmetric Skin: multiple chronic venous stasis ulcers Neurologic: grossly normal, no focal deficits Gadiel Tam M.D. May 13, 2018 21:56
[2018-05-13] MEDS: TraZODone 50mg tab ORAL PRN (23:11)
[2018-05-14 00:35] VITALS: BP 117/72
[2018-05-14] MEDS: Vancomycin 1 GM in D5W 275 ML IVPB SCH ×2 (03:14→16:44)
[2018-05-14 04:57] VITALS: BP 102/54
[2018-05-14] MEDS: Pantoprazole Inj IVP SCH ×2 (06:03→18:27)
[2018-05-14] MEDS: Piperacillin/Tazobactam 3.375 GM in D5W 110 ML IVPB SCH ×3 (06:03→20:58)
[2018-05-14 06:18] LABS: HEMATOCRIT 21.9 % (42.0-52.0); HEMOGLOBIN 7.6 G/DL (14.2-18.0); MEAN CORPUSCULAR VOLUME 95 FL (80-99); PLATELET COUNT 88 K/UL (150-450); RED BLOOD COUNT 2.31 M/UL (4.70-6.10); RED CELL DISTRIBUTION WIDTH 18.1 % (11.6-14.8); WHITE BLOOD COUNT 12.4 K/UL (4.8-10.8)
[2018-05-14 06:30] LABS: ANION GAP 6 mmol/L (5-15); BLOOD UREA NITROGEN 17 mg/dL (7-18); CALCIUM 8.5 MG/DL (8.5-10.1); CARBON DIOXIDE 28 MMOL/L (21-32); CHLORIDE 100 MMOL/L (98-107); CREATININE 1.3 MG/DL (0.55-1.30); POTASSIUM 3.4 MMOL/L (3.5-5.1); SODIUM 133 MMOL/L (136-145)
[2018-05-14 08:00] VITALS: BP 130/79
[2018-05-14] MEDS: Lactulose 20gm/30ml UDC ORAL SCH ×3 (09:00→18:00)
--- NOTE | 2018-05-14 10:05 | General Progress Note ---
Assessment/Plan Status: stable Assessment/Plan Septic shock due to Providencia bacteremia - PICC placed and started back on IV antibiotics--on vanco, zosyn, difucan x 5 days per ID--currently day 3/5 Acute upper GI bleed w/ hematemesis - underwent EGD 05/10/18 which showed no bleeding varices but hemorrhagic gastritis, s/p epinephrine injection, cont PPI , transfuse for hgb<7 or active bleeding. Hgb stable Acute hypoxic respiratory failure - stable respiratory status. Decompensated alcoholic cirrhosis c/b ascites and hepatic encephalopathy - s/p therapeutic paracentesis this admission, continue rifaximin and lactulose. AGNIESZKA due to ATN from sepsis and hypotension - resolved. Acute metabolic encephalopathy - resolving, continue supportive measures Thrombocytopenia - multifactorial from ESLD, bone marrow suppression from septic shock, platelet counts improving. Coagulopathy - 2/2 cirrhosis, ctm LE ulcerations - surgery following for wound care, no evidence of cellulitis Hypoglycemia - likely in setting of liver failure, ctm Diarrhea - neg stool C. diff Deconditioning - PT/OT eval, likely needs SNF. SW/Cm consulted. Pt hesitant to d /c to SNF, prefers to go home. Home health ordered DVT Prophylaxis: SCD Code Status: Full Hospital Classification Declaration: Based on this initial evaluation, and depending on the patient's clinical course, I anticipate that this patient will require hospitalization for 1-2 days for IV abx and close respiratory/ hemodynamic monitoring. Disposition: Once the patient is stable to leave the hospital, I anticipate the patient will likely be discharged to the following environment: home with HH vs SNF I spent 38 minutes on this patient's case, and 21 minutes were dedicated to counseling and/or care coordination. Discussed with patient/family, nursing staff, SW/CM, GI, ID regarding clinical status, treatment course, and disposition planning. Time of note may not reflect time of encounter. Subjective Date patient seen: May 14, 2018 Time patient seen: 10:05 ROS Limited/Unobtainable: No Constitutional: Reports: no symptoms HEENT: Reports: no symptoms Cardiovascular: Reports: no symptoms Respiratory: Reports: no symptoms Gastrointestinal/Abdominal: Reports: no symptoms Genitourinary: Reports: no symptoms Neurologic/Psychiatric: Reports: no symptoms Endocrine: Reports: no symptoms Hematologic/Lymphatic: Reports: no symptoms Allergies: Coded Allergies: No Known Allergies (Unverified , 04/29/18) Subjective No acute o/n events Hgb stable More awake, alert. Denies pain, SOB Discussed SNF, pt somewhat amenable but does prefer to go home Objective Last 24 Hour Vital Signs Date Time Temp Pulse Resp B/P (MAP) Pulse Ox O2 Delivery O2 Flow Rate FiO2 05/14/18 09:29 130/79 05/14/18 08:01 95 Room Air 21 05/14/18 08:01 Room Air 21 05/14/18 08:00 98.1 105 28 130/79 (96) 94 98.1 05/14/18 04:57 97.6 98 20 102/54 (70) 94 97.6 05/14/18 00:35 97.6 96 20 117/72 (87) 95 97.6 05/13/18 20:00 98.0 97 20 124/69 (87) 95 98.0 05/13/18 20:00 Room Air Room Air 05/13/18 19:43 Room Air 21 05/13/18 19:43 94 Room Air 21 05/13/18 18:50 122/56 05/13/18 16:00 98.0 101 20 122/56 (78) 95 98.0 05/13/18 13:46 122/76 05/13/18 12:00 97.4 105 28 122/76 (91) 94 97.4 05/13/18 10:30 94 Nasal Cannula 2.0 28 05/13/18 10:30 Nasal Cannula 2.0 28 Intake and Output 05/13/18 05/14/18 19:00 07:00 Intake Total 940.000 ml 505.000 ml Output Total 400 ml 300 ml Balance 540.000 ml 205.000 ml Intake Oral 480 ml 120 ml IV Total 460.000 ml 385.000 ml Output Urine Total 400 ml 300 ml # Voids 2 # Bowel Movements 4 3 Laboratory Tests 05/13/18 10:40: Prothrombin Time 23.2H, Prothromb Time International Ratio 2.3H 05/14/18 05:30: White Blood Count 12.4H, Red Blood Count 2.31L, Hemoglobin 7.6L, Hematocrit 21.9L, Mean Corpuscular Volume 95, Mean Corpuscular Hemoglobin 32.8H, Mean Corpuscular Hemoglobin Concent 34.6, Red Cell Distribution Width 18.1H, Platelet Count 88L, Mean Platelet Volume 6.4L, Neutrophils (%) (Auto) , Lymphocytes (%) (Auto) , Monocytes (%) (Auto) , Eosinophils (%) (Auto) , Basophils (%) (Auto) , Neutrophils % (Manual) [Pending], Lymphocytes % (Manual) [Pending], Platelet Estimate [Pending], Platelet Morphology [Pending], Sodium Level 133L, Potassium Level 3.4L, Chloride Level 100, Carbon Dioxide Level 28, Anion Gap 6, Blood Urea Nitrogen 17, Creatinine 1.3, Estimat Glomerular Filtration Rate > 60, Glucose Level 128H, Calcium Level 8.5 Height (Feet): 5 Height (Inches): 9.00 Weight (Pounds): 322 Objective General: alert, cooperative, no distress, appears stated age Head: normocephalic, without obvious abnormality, atraumatic Eyes: conjunctivae/corneas clear. PERRL, EOM's intact Throat: lips, mucosa, and tongue normal. MMM Neck: supple, symmetrical, trachea midline, and no JVD Lungs: clear to auscultation bilaterally Heart: regular rate and rhythm, S1, S2 normal, no murmur, click, rub or gallop Abdomen: soft, non-tender, some abd distention, no discrete fluid wave, bowel sounds normal Extremities: extremities normal, atraumatic, no cyanosis, +BLE edema Pulses: 2+ and symmetric Skin: multiple chronic venous stasis ulcers Neurologic: grossly normal, no focal deficits Gadiel Tam M.D. May 14, 2018 10:05
--- NOTE | 2018-05-14 11:38 | General Surgery Progress Note ---
General Surgery-Progress Note Subjective Additional Comments no acute events. leukocytosis improving. doing better. labs reviewed. wounds stable. Objective Last 24 Hour Vital Signs Date Time Temp Pulse Resp B/P (MAP) Pulse Ox O2 Delivery O2 Flow Rate FiO2 05/14/18 09:29 130/79 05/14/18 09:00 Room Air Room Air 05/14/18 08:01 95 Room Air 21 05/14/18 08:01 Room Air 21 05/14/18 08:00 98.1 105 28 130/79 (96) 94 98.1 05/14/18 04:57 97.6 98 20 102/54 (70) 94 97.6 05/14/18 00:35 97.6 96 20 117/72 (87) 95 97.6 05/13/18 20:00 98.0 97 20 124/69 (87) 95 98.0 05/13/18 20:00 Room Air Room Air 05/13/18 19:43 Room Air 21 05/13/18 19:43 94 Room Air 21 05/13/18 18:50 122/56 05/13/18 16:00 98.0 101 20 122/56 (78) 95 98.0 05/13/18 13:46 122/76 05/13/18 12:00 97.4 105 28 122/76 (91) 94 97.4 I&O Intake and Output 05/13/18 05/14/18 19:00 07:00 Intake Total 940.000 ml 505.000 ml Output Total 400 ml 300 ml Balance 540.000 ml 205.000 ml Intake Oral 480 ml 120 ml IV Total 460.000 ml 385.000 ml Output Urine Total 400 ml 300 ml # Voids 2 # Bowel Movements 4 3 Dressing: saturated Wound: clean Drains: none Cardiovascular: RSR Respiratory: clear Abdomen: soft, flat, non-tender Extremities: other Laboratory Tests Test 05/14/18 05:30 White Blood Count 12.4 K/UL (4.8-10.8) H Red Blood Count 2.31 M/UL (4.70-6.10) L Hemoglobin 7.6 G/DL (14.2-18.0) L Hematocrit 21.9 % (42.0-52.0) L Mean Corpuscular Volume 95 FL (80-99) Mean Corpuscular Hemoglobin 32.8 PG (27.0-31.0) H Mean Corpuscular Hemoglobin Concent 34.6 G/DL (32.0-36.0) Red Cell Distribution Width 18.1 % (11.6-14.8) H Platelet Count 88 K/UL (150-450) L Mean Platelet Volume 6.4 FL (6.5-10.1) L Neutrophils (%) (Auto) % (45.0-75.0) Lymphocytes (%) (Auto) % (20.0-45.0) Monocytes (%) (Auto) % (1.0-10.0) Eosinophils (%) (Auto) % (0.0-3.0) Basophils (%) (Auto) % (0.0-2.0) Differential Total Cells Counted 100 Neutrophils % (Manual) 91 % (45-75) H Lymphocytes % (Manual) Pending Monocytes % (Manual) 2 % (1-10) Eosinophils % (Manual) 7 % (0-3) H Basophils % (Manual) 0 % (0-2) Band Neutrophils 0 % (0-8) Platelet Estimate Decreased L Platelet Morphology Normal Anisocytosis 1+ Sodium Level 133 MMOL/L (136-145) L Potassium Level 3.4 MMOL/L (3.5-5.1) L Chloride Level 100 MMOL/L (98-107) Carbon Dioxide Level 28 MMOL/L (21-32) Anion Gap 6 mmol/L (5-15) Blood Urea Nitrogen 17 mg/dL (7-18) Creatinine 1.3 MG/DL (0.55-1.30) Estimat Glomerular Filtration Rate > 60 mL/min (>60) Glucose Level 128 MG/DL (74-106) H Calcium Level 8.5 MG/DL (8.5-10.1) Plan Problems: (1) Wound of lower extremity Assessment & Plan: Multiple venous stasis ulcers of the right lower extremity. Bilateral lower extremity edema Full thickness ulcer noted to lateral right lower extremity (L)7.5cm x (W02.7cm x (D)0.2cm with wound bed grace,(+) maceration. no odor noted .Minimal serous exudate noted Full thickness ulcer noted to medial right lower extremity (L)2.5cm x (W)3cm x ( D)0.4cm with wound bed grace and slightly macerated borders .Minimal serous exudate noted Full thickness ulcer posterior R tibia (L)2.5cm x (W)1cm x (D)0.2cm with wound bed grace ,moist with minimal serous exudate. Hemosiderin noted to bilat lower ext with xeroses. Bilateral heels are dry but blanching. L lower ext noted to be oozing minimal serous exudate but no ulcerations noted. Non-blanching erythema noted wounds present upon admission Tx.Plan:Cleanse wounds R lower ext with Saline .Apply Alginate to Wound R lateral and R posterior lower ext. Apply Triad or Calazime paste to immediate borders.Cover with ABD and wrap with soft Kerlix from Base of toes Daily and prn. Cleanse wound lateral L lower ext with Saline. Pat dry .Apply Calazime Paste or Triad to immediate borders of wound.Cover with Biatain drsg daily and prn. Maintain Sacral Foam drsg and change every 7 days and as needed. Discontinue Therahoney gel to wounds. (2) Shock, septic Logan Gracia May 14, 2018 11:38
[2018-05-14 12:00] VITALS: BP 129/71
[2018-05-14 16:00] VITALS: BP 120/78
--- NOTE | 2018-05-14 16:43 | General Progress Note ---
Assessment/Plan Assessment/Plan ASSESSMENT AND RECS: 1. Thrombocytopenia, potentially secondary to septic shock and myleosuppresion, severe sepsis, end-organ damage, closely monitor, peripheral smear has been reviewed. The patient continues to have lactic acidosis, improved at this time and, in addition, imaging reviewed. 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 --> hepatitis and hiv reviewed and is negative --> report and give Vit K and ffp and inr is elevated --> Stopped PROTONIX and also other drugs also reviewed as well --> appears baseline in the 50-100k range 2. Coagulopathy with portal hypertension, cirrhosis of liver, large volume ascites, requires paracentesis and requires vitamin K --> vit K prn basis --> on abx, vanc --> as per ID, appreciate their recs --> inr reviewed and now improved 3. Leukocytosis, likely secondary to underlying infection, ulceration seen by surgery, potentially related to underlying sepsis versus other causes such as SBP; but again has been seen by GI team --> s/p paracentesis and prn in the future --> on abx for right lower ext ulceration 4. AGNIESZKA, on IV fluids as needed 5. Acute encephalopathy --> pending eval with neuro if worsened 6. Septic shock. now has improved. --> s/p abx 7. SNF placement once found Greatly appreciate consultation Subjective Constitutional: Denies: no symptoms, chills, diaphoresis, fever, malaise, weakness, other HEENT: Denies: no symptoms, eye pain, blurred vision, tearing, double vision, ear pain, ear discharge, nose pain, nose congestion, throat pain, throat swelling, mouth pain, mouth swelling, other Cardiovascular: Denies: no symptoms, chest pain, edema, irregular heart rate, lightheadedness, palpitations, syncope, other Respiratory: Denies: no symptoms, cough, orthopnea, shortness of breath, SOB with excertion, SOB at rest, sputum, stridor, wheezing, other Gastrointestinal/Abdominal: Denies: no symptoms, abdomen distended, abdominal pain, black stools, tarry stools, blood in stool, constipated, diarrhea, difficulty swallowing, nausea, poor appetite, poor fluid intake, rectal bleeding , vomiting, other Genitourinary: Denies: no symptoms, burning, discharge, frequency, flank pain, hematuria, incontinence, pain, urgency, other Neurologic/Psychiatric: Denies: no symptoms, anxiety, depressed, emotional problems, headache, numbness, paresthesia, pre-existing deficit, seizure, tingling, tremors, weakness, other Endocrine: Denies: no symptoms, excessive sweating, flushing, intolerance to cold, intolerance to heat, increased hunger, increased thirst, increased urine, unexplained weight gain, unexplained weight loss, other Hematologic/Lymphatic: Denies: no symptoms, anemia, easy bleeding, easy bruising, other Allergies: Coded Allergies: No Known Allergies (Unverified , 04/29/18) Subjective c diff positive, on abx, is pending placement to snf Objective Last 24 Hour Vital Signs Date Time Temp Pulse Resp B/P (MAP) Pulse Ox O2 Delivery O2 Flow Rate FiO2 05/14/18 13:59 129/71 05/14/18 12:00 97.8 98 27 129/71 (90) 95 97.8 05/14/18 09:29 130/79 05/14/18 09:00 Room Air Room Air 05/14/18 08:01 95 Room Air 21 05/14/18 08:01 Room Air 21 05/14/18 08:00 98.1 105 28 130/79 (96) 94 98.1 05/14/18 04:57 97.6 98 20 102/54 (70) 94 97.6 05/14/18 00:35 97.6 96 20 117/72 (87) 95 97.6 05/13/18 20:00 98.0 97 20 124/69 (87) 95 98.0 05/13/18 20:00 Room Air Room Air 05/13/18 19:43 Room Air 21 05/13/18 19:43 94 Room Air 21 05/13/18 18:50 122/56 Intake and Output 05/13/18 05/14/18 19:00 07:00 Intake Total 940.000 ml 505.000 ml Output Total 400 ml 300 ml Balance 540.000 ml 205.000 ml Intake Oral 480 ml 120 ml IV Total 460.000 ml 385.000 ml Output Urine Total 400 ml 300 ml # Voids 2 # Bowel Movements 4 3 Laboratory Tests 05/14/18 05:30: White Blood Count 12.4H, Red Blood Count 2.31L, Hemoglobin 7.6L, Hematocrit 21.9L, Mean Corpuscular Volume 95, Mean Corpuscular Hemoglobin 32.8H, Mean Corpuscular Hemoglobin Concent 34.6, Red Cell Distribution Width 18.1H, Platelet Count 88L, Mean Platelet Volume 6.4L, Neutrophils (%) (Auto) , Lymphocytes (%) (Auto) , Monocytes (%) (Auto) , Eosinophils (%) (Auto) , Basophils (%) (Auto) , Differential Total Cells Counted 100, Neutrophils % ( Manual) 91H, Lymphocytes % (Manual) 0L, Monocytes % (Manual) 2, Eosinophils % ( Manual) 7H, Basophils % (Manual) 0, Band Neutrophils 0, Platelet Estimate DecreasedL, Platelet Morphology Normal, Anisocytosis 1+, Sodium Level 133L, Potassium Level 3.4L, Chloride Level 100, Carbon Dioxide Level 28, Anion Gap 6, Blood Urea Nitrogen 17, Creatinine 1.3, Estimat Glomerular Filtration Rate > 60 , Glucose Level 128H, Calcium Level 8.5 Height (Feet): 5 Height (Inches): 9.00 Weight (Pounds): 322 General Appearance: no apparent distress EENT: pharynx normal Neck: supple Cardiovascular: regular rhythm Respiratory/Chest: lungs clear Abdomen: soft Extremities: non-tender Edema: no edema noted Leg (L) Neurologic: alert Skin: warm/dry Eric Irizarry MD May 14, 2018 16:43
--- NOTE | 2018-05-14 18:43 | General Progress Note ---
Assessment/Plan Assessment/Plan Assessment - UGIB - gastritis - Cirrhosis - alcoholic - portal HTN - no varicies on current EGD - presumed EtOH hepatitis - some recovery in labs noted - coagulopathy - ascites - s/p tap - sepsis, no SBP on paracentesis fluid - Resp failure - AMS, likely hepatic encephalopathy - hypoglycemia - guarded Recommendation: - push po diet - continue lactulose - Xifaxan - follow labs - broad abx - IV PPI - change to PO at d/c Subjective Allergies: Coded Allergies: No Known Allergies (Unverified , 04/29/18) Subjective Above noted feels OK No new complaints Objective Last 24 Hour Vital Signs Date Time Temp Pulse Resp B/P (MAP) Pulse Ox O2 Delivery O2 Flow Rate FiO2 05/14/18 18:27 120/78 05/14/18 16:00 97.9 105 28 120/78 (92) 95 97.9 05/14/18 13:59 129/71 05/14/18 12:00 97.8 98 27 129/71 (90) 95 97.8 05/14/18 09:29 130/79 05/14/18 09:00 Room Air Room Air 05/14/18 08:01 95 Room Air 21 05/14/18 08:01 Room Air 21 05/14/18 08:00 98.1 105 28 130/79 (96) 94 98.1 05/14/18 04:57 97.6 98 20 102/54 (70) 94 97.6 05/14/18 00:35 97.6 96 20 117/72 (87) 95 97.6 05/13/18 20:00 98.0 97 20 124/69 (87) 95 98.0 05/13/18 20:00 Room Air Room Air 05/13/18 19:43 Room Air 21 05/13/18 19:43 94 Room Air 21 05/13/18 18:50 122/56 Intake and Output 05/13/18 05/14/18 19:00 07:00 Intake Total 940.000 ml 505.000 ml Output Total 400 ml 300 ml Balance 540.000 ml 205.000 ml Intake Oral 480 ml 120 ml IV Total 460.000 ml 385.000 ml Output Urine Total 400 ml 300 ml # Voids 2 # Bowel Movements 4 3 Laboratory Tests 05/14/18 05:30: White Blood Count 12.4H, Red Blood Count 2.31L, Hemoglobin 7.6L, Hematocrit 21.9L, Mean Corpuscular Volume 95, Mean Corpuscular Hemoglobin 32.8H, Mean Corpuscular Hemoglobin Concent 34.6, Red Cell Distribution Width 18.1H, Platelet Count 88L, Mean Platelet Volume 6.4L, Neutrophils (%) (Auto) , Lymphocytes (%) (Auto) , Monocytes (%) (Auto) , Eosinophils (%) (Auto) , Basophils (%) (Auto) , Differential Total Cells Counted 100, Neutrophils % ( Manual) 91H, Lymphocytes % (Manual) 0L, Monocytes % (Manual) 2, Eosinophils % ( Manual) 7H, Basophils % (Manual) 0, Band Neutrophils 0, Platelet Estimate DecreasedL, Platelet Morphology Normal, Anisocytosis 1+, Sodium Level 133L, Potassium Level 3.4L, Chloride Level 100, Carbon Dioxide Level 28, Anion Gap 6, Blood Urea Nitrogen 17, Creatinine 1.3, Estimat Glomerular Filtration Rate > 60 , Glucose Level 128H, Calcium Level 8.5 Height (Feet): 5 Height (Inches): 9.00 Weight (Pounds): 322 Objective WDWN WM NCAT supple CTA RRR Soft / Obese trace edema sedated Pierre Suggs MD May 14, 2018 18:43
[2018-05-14 20:00] VITALS: BP 125/53
[2018-05-14] MEDS: Dyna-Hex 2% Top Sol 2oz TOPIC SCH (20:57)
--- NOTE | 2018-05-14 22:36 | Infectious Diseases Prog Note ---
Assessment/Plan Assessment/Plan ASSESSMENT AND PLAN: 1. sepsis, shock, providencia bacteremia, mrsa pna, mrsa/proteus right leg wound infection, right leg cellulitis, gib, leukocytosis, fevers s/p bronchoscopy, sc-yeast, fungemia risk, leukocytosis better, chest x-ray better, fevers resolved - vancomycin and zosyn, diflucan for 3 days - monitor labs and chest x-ray - clinically improved 2. Liver cirrhosis. 3. Portal hypertension. 4. Ascites. 5. Anemia. 6. Thrombocytopenia. 7. Respiratory failure. 8. Low blood pressure. 9. Sepsis, shock. 10. Varices. 11. ETOH hepatitis. 12. Coagulopathy. 13. Altered mental status 14. hepatic encephalopathy 15. Past medical history noted. 16. He has no known allergies. 17. Social history is presumptively I think positive for ETOH. Cannot assess smoking or IV drug abuse. 18. Family history is noncontributory. 19. MAR was noted. 20. Case discussed with RN. 21. ICU care. 22. Case discussed with Dr. Rasmussen. 23. Continue treatment per primary consultants. 24. Poor prognosis. 25. Orders were entered and noted. 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6 103 28 125/53 (77) 95 98.6 05/14/18 19:48 95 Room Air 21 05/14/18 19:48 Room Air 21 05/14/18 18:27 120/78 05/14/18 16:00 97.9 105 28 120/78 (92) 95 97.9 05/14/18 13:59 129/71 05/14/18 12:00 97.8 98 27 129/71 (90) 95 97.8 9/22/18 09:29 130/79 05/14/18 09:00 Room Air Room Air 05/14/18 08:01 95 Room Air 21 05/14/18 08:01 Room Air 21 05/14/18 08:00 98.1 105 28 130/79 (96) 94 98.1 05/14/18 04:57 97.6 98 20 102/54 (70) 94 97.6 05/14/18 00:35 97.6 96 20 117/72 (87) 95 97.6 Height (Feet): 5 Height (Inches): 9.00 Weight (Pounds): 322 General Appearance: no acute distress HEENT: normocephalic, atraumatic, anicteric, mucous membranes moist Respiratory/Chest: crackles/rales, rhonchi - bilaterally Cardiovascular: normal rate, regular rhythm, no gallop/murmur, no JVD Abdomen: normal bowel sounds, soft, non tender, distended Genitourinary: other - + grimm Extremities: no cyanosis Skin: no rash Neurologic/Psychiatric: forging operator II-XII grossly normal, alert, responsive Lymphatic: no neck adenopathy Musculoskeletal: no effusion Objective Procedure: XRAY Chest 1v 05/01 - chest x-ray - INDICATION: Infection COMPARISON: Chest x-ray dated 04/30/18 FINDINGS: Single frontal view demonstrates a normal cardiomediastinal silhouette. Right internal jugular, grossly unchanged. Nasogastric tube in gastric cavity. Endotracheal tube 5 cm above the pamela. Increasing opacity in bilateral mid to lower lung zones. No pleural effusions. The visualized osseous structures are within normal limits. IMPRESSION: Stable tubes and lines as outlined above. Increasing opacity in bilateral mid to lower lung zones. CT imaging noted - reports noted 05/03/18 - Chest x-ray - Findings: Patchy, heterogeneous airspace opacities and interstitial opacities identified. Heart is stable. Tubes and lines are stable. IMPRESSION: Patchy lung disease likely on the basis of pulmonary edema. Infiltrates not excluded. Chest x-ray - 05/08 - FINDINGS: Lungs: Low lung volumes, which may be related to shallow inspiration. Bilateral perihilar opacities with diffuse patchy pulmonary opacities, suggesting pulmonary edema. Pleural space: Unremarkable. The costophrenic angles are sharp. No visible pneumothorax. Heart: Unremarkable. No cardiomegaly. Mediastinum: Unremarkable. Bones/joints: Unremarkable. IMPRESSION: 1. Low lung volumes, which may be related to shallow inspiration. 2. Bilateral perihilar opacities with diffuse patchy pulmonary opacities, suggesting pulmonary edema. Cannot exclude an underlying pneumonia. Chest x-ray - 05/10/18 Comparison: 05/08/2018 Findings: Interim improvement but persistence of previously demonstrated interstitial edema. There is some blunting of the right costophrenic sulcus, likely a small amount of pleural fluid. No new infiltrates. Heart size is normal Impression: Improved but persistent pulmonary interstitial edema, over 2 days Possible small right pleural effusion Chest x-ray - 05/12 - Comparison: 05/10/2018 Findings: Inspiration is suboptimal. There is atelectasis in the left perihilar region. Generalized mild interstitial edema persists, unchanged. Interim placement of right arm PICC. Impression: Hypoventilatory exam with left perihilar atelectasis Interim PICC placement Unchanged mild interstitial edema Microbiology Date/Time Source Procedure Growth Status 05/06/18 18:00 Blood Blood Culture - Final NO GROWTH AFTER 5 DAYS Complete 05/03/18 15:35 Ascities Fluid Gram Stain - Final Complete 05/03/18 15:35 Ascities Fluid Body Fluid Culture - Final NO GROWTH Complete 04/30/18 04:00 Wound Gram Stain - Final Complete 04/30/18 04:00 Wound Culture - Final Proteus Mirabilis Staphylococcus Aureus - Mrsa Complete 05/06/18 15:00 Bronchial Washings Not Specified Gram Stain - Final Complete 05/06/18 15:00 Bronchial Aspirate Culture - Final Mariah Albicans Mariah Dubliniensis Complete 05/04/18 05:00 Stool Clostridium difficile Toxin Assay - Final Complete 04/29/18 17:00 Rectum VRE Culture - Final Enterococcus Faecalis - Vre Complete Laboratory Tests Test 05/14/18 05:30 White Blood Count 12.4 K/UL (4.8-10.8) H Red Blood Count 2.31 M/UL (4.70-6.10) L Hemoglobin 7.6 G/DL (14.2-18.0) L Hematocrit 21.9 % (42.0-52.0) L Mean Corpuscular Volume 95 FL (80-99) Mean Corpuscular Hemoglobin 32.8 PG (27.0-31.0) H Mean Corpuscular Hemoglobin Concent 34.6 G/DL (32.0-36.0) Red Cell Distribution Width 18.1 % (11.6-14.8) H Platelet Count 88 K/UL (150-450) L Mean Platelet Volume 6.4 FL (6.5-10.1) L Neutrophils (%) (Auto) % (45.0-75.0) Lymphocytes (%) (Auto) % (20.0-45.0) Monocytes (%) (Auto) % (1.0-10.0) Eosinophils (%) (Auto) % (0.0-3.0) Basophils (%) (Auto) % (0.0-2.0) Differential Total Cells Counted 100 Neutrophils % (Manual) 91 % (45-75) H Lymphocytes % (Manual) 0 % (20-45) L Monocytes % (Manual) 2 % (1-10) Eosinophils % (Manual) 7 % (0-3) H Basophils % (Manual) 0 % (0-2) Band Neutrophils 0 % (0-8) Platelet Estimate Decreased L Platelet Morphology Normal Anisocytosis 1+ Sodium Level 133 MMOL/L (136-145) L Potassium Level 3.4 MMOL/L (3.5-5.1) L Chloride Level 100 MMOL/L (98-107) Carbon Dioxide Level 28 MMOL/L (21-32) Anion Gap 6 mmol/L (5-15) Blood Urea Nitrogen 17 mg/dL (7-18) Creatinine 1.3 MG/DL (0.55-1.30) Estimat Glomerular Filtration Rate > 60 mL/min (>60) Glucose Level 128 MG/DL (74-106) H Calcium Level 8.5 MG/DL (8.5-10.1) Current Medications Medications (Trade) Dose Ordered Sig/Ry Route PRN Reason Start Time Stop Time Status Last Admin Dose Admin Chlorhexidine Gluconate (Fatemeh-Hex 2%) 1 applic DAILY@1999 TOPIC 05/13/18 20:00 06/09/18 19:59 05/14/18 20:57 Fluconazole/ Sodium Chloride 100 ml @ 100 mls/hr Q24H IV 05/13/18 18:00 05/17/18 17:59 05/14/18 18:34 Lactulose (Cephulac) 20 gm THREE TIMES A DAY ORAL 05/13/18 09:00 05/30/18 12:59 Ondansetron HCl (Zofran) 4 mg Q6H PRN IVP Nausea & Vomiting 05/13/18 01:30 06/09/18 01:29 05/13/18 16:35 Pantoprazole (Protonix) 40 mg Q12H IVP 05/13/18 07:00 06/09/18 06:59 05/14/18 18:27 Pentoxifylline (TRENtal) 400 mg THREE TIMES A DAY ORAL 05/13/18 09:00 05/31/18 08:59 05/14/18 18:27 Piperacillin Sod/ Tazobactam Sod 3.375 gm/Dextrose 110 ml @ 27.5 mls/hr EVERY 8 HOURS IVPB 05/13/18 14:30 05/20/18 14:29 05/14/18 20:58 Rifaximin (Xifaxan) 550 mg EVERY 12 HOURS ORAL 05/13/18 09:00 05/16/18 22:29 05/14/18 20:58 Trazodone HCl (Desyrel) 50 mg Q8H PRN ORAL INSOMNIA 05/13/18 20:15 06/12/18 20:14 05/13/18 23:11 Vancomycin HCl (Vanco rx to dose) 1 ea DAILY PRN MISC Per rx protocol 05/13/18 09:00 06/09/18 14:29 Vancomycin HCl 1 gm/Dextrose 275 ml @ 183.708 mls/hr Q12HR@0400,1600 IVPB 05/15/18 04:00 05/17/18 15:59 Doris Ramos MD May 14, 2018 22:36
[2018-05-15] VITALS: BP 110/57
[2018-05-15] MEDS: Vancomycin 1 GM in D5W 275 ML IVPB SCH ×2 (03:08→18:03)
[2018-05-15 04:00] VITALS: BP 111/56
[2018-05-15] MEDS: Piperacillin/Tazobactam 3.375 GM in D5W 110 ML IVPB SCH ×3 (06:11→20:46)
[2018-05-15] MEDS: Pantoprazole Inj IVP SCH ×2 (06:11→18:04)
[2018-05-15 06:26] LABS: HEMATOCRIT 20.6 % (42.0-52.0); HEMOGLOBIN 7.3 G/DL (14.2-18.0); MEAN CORPUSCULAR VOLUME 95 FL (80-99); PLATELET COUNT 76 K/UL (150-450); RED BLOOD COUNT 2.16 M/UL (4.70-6.10); RED CELL DISTRIBUTION WIDTH 18.7 % (11.6-14.8); WHITE BLOOD COUNT 9.2 K/UL (4.8-10.8)
[2018-05-15 06:58] LABS: ALANINE AMINOTRANSFERASE 29 U/L (12-78); ALBUMIN 1.6 G/DL (3.4-5.0); ALBUMIN/GLOBULIN RATIO 0.3 (1.0-2.7); ALKALINE PHOSPHATASE 107 U/L (46-116); ANION GAP 5 mmol/L (5-15); ASPARTATE AMINO TRANSFERASE 39 U/L (15-37); BILIRUBIN,TOTAL 5.5 MG/DL (0.2-1.0); BLOOD UREA NITROGEN 14 mg/dL (7-18); CALCIUM 8.2 MG/DL (8.5-10.1); CARBON DIOXIDE 27 MMOL/L (21-32); CHLORIDE 100 MMOL/L (98-107); CREATININE 1.4 MG/DL (0.55-1.30); POTASSIUM 3.4 MMOL/L (3.5-5.1); SODIUM 132 MMOL/L (136-145)
[2018-05-15 07:00] LABS: BILIRUBIN,DIRECT 2.3 MG/DL (0.0-0.3)
[2018-05-15 08:00] VITALS: BP 113/67
[2018-05-15] MEDS: Lactulose 20gm/30ml UDC ORAL SCH ×3 (09:45→17:10)
[2018-05-15] MEDS ORDERED: Tubing IV Secondary IV ONE (10:14)
[2018-05-15] MEDS ORDERED: NS 275ml ONE (10:14)
--- NOTE | 2018-05-15 10:26 | General Progress Note ---
Assessment/Plan Status: stable Assessment/Plan Septic shock due to Providencia bacteremia - PICC placed and started back on IV antibiotics--on vanco, zosyn, difucan x 5 days per ID--currently day 3/ Acute upper GI bleed w/ hematemesis - underwent EGD 05/10/18 which showed no bleeding varices but hemorrhagic gastritis, s/p epinephrine injection, cont PPI , transfuse for hgb<7 or active bleeding. Hgb downtrending to 7.3, no e/o active bleeding Acute hypoxic respiratory failure - stable respiratory status. Decompensated alcoholic cirrhosis c/b ascites and hepatic encephalopathy - s/p therapeutic paracentesis this admission, continue rifaximin and lactulose. AGNIESZKA due to ATN from sepsis and hypotension - SCr rising again, renal consulted Acute metabolic encephalopathy - resolving, continue supportive measures Thrombocytopenia - multifactorial from ESLD, bone marrow suppression from septic shock, platelet counts improving. Coagulopathy - 2/2 cirrhosis, ctm LE ulcerations - surgery following for wound care, no evidence of cellulitis Hypoglycemia - likely in setting of liver failure, ctm Diarrhea - neg stool C. diff Deconditioning - PT/OT eval, likely needs SNF. SW/Cm consulted. Pt hesitant to d /c to SNF, prefers to go home. Home health ordered DVT Prophylaxis: SCD Code Status: Full Hospital Classification Declaration: Based on this initial evaluation, and depending on the patient's clinical course, I anticipate that this patient will require hospitalization for 1-2 days for IV abx and close respiratory/ hemodynamic monitoring. Disposition: Once the patient is stable to leave the hospital, I anticipate the patient will likely be discharged to the following environment: home with HH vs SNF I spent 38 minutes on this patient's case, and 21 minutes were dedicated to counseling and/or care coordination. Discussed with patient/family, nursing staff, SW/CM, GI, ID regarding clinical status, treatment course, and disposition planning. Time of note may not reflect time of encounter. Subjective Date patient seen: May 15, 2018 Time patient seen: 10:25 ROS Limited/Unobtainable: No Constitutional: Reports: no symptoms HEENT: Reports: no symptoms Cardiovascular: Reports: no symptoms Respiratory: Reports: no symptoms Gastrointestinal/Abdominal: Reports: no symptoms Genitourinary: Reports: no symptoms Neurologic/Psychiatric: Reports: no symptoms Endocrine: Reports: no symptoms Hematologic/Lymphatic: Reports: no symptoms Allergies: Coded Allergies: No Known Allergies (Unverified , 04/29/18) All Systems: reviewed and negative except above Subjective No acute o/n events Hgb down to 7.3 SCr up to 1.4 More awake, alert. Denies pain, SOB Discussed SNF, pt somewhat amenable but does prefer to go home Objective Last 24 Hour Vital Signs Date Time Temp Pulse Resp B/P (MAP) Pulse Ox O2 Delivery O2 Flow Rate FiO2 05/15/18 08:25 96 Room Air 21 05/15/18 08:25 Room Air 21 05/15/18 08:00 97.5 105 22 113/67 (82) 95 97.5 05/15/18 04:00 97.6 101 20 111/56 (74) 100 97.6 05/15/18 00:00 97.9 100 20 110/57 (74) 100 97.9 05/14/18 21:00 Room Air Room Air 05/14/18 20:00 98.6 103 28 125/53 (77) 95 98.6 05/14/18 19:48 95 Room Air 21 05/14/18 19:48 Room Air 21 05/14/18 18:27 120/78 05/14/18 16:00 97.9 105 28 120/78 (92) 95 97.9 05/14/18 13:59 129/71 05/14/18 12:00 97.8 98 27 129/71 (90) 95 97.8 Intake and Output 05/14/18 05/15/18 19:00 07:00 Intake Total 3775.000 ml 485.000 ml Output Total 400 ml 550 ml Balance 3375.000 ml -65.000 ml Intake Oral 600 ml IV Total 3175.000 ml 485.000 ml Output Urine Total 400 ml 550 ml # Bowel Movements 4 4 Laboratory Tests 05/15/18 05:50: White Blood Count 9.2, Red Blood Count 2.16L, Hemoglobin 7.3L, Hematocrit 20.6L , Mean Corpuscular Volume 95, Mean Corpuscular Hemoglobin 33.7H, Mean Corpuscular Hemoglobin Concent 35.4, Red Cell Distribution Width 18.7H, Platelet Count 76L, Mean Platelet Volume 6.4L, Neutrophils (%) (Auto) , Lymphocytes (%) (Auto) , Monocytes (%) (Auto) , Eosinophils (%) (Auto) , Basophils (%) (Auto) , Differential Total Cells Counted 100, Neutrophils % ( Manual) 85H, Lymphocytes % (Manual) 7L, Monocytes % (Manual) 6, Eosinophils % ( Manual) 0, Basophils % (Manual) 0, Band Neutrophils 2, Platelet Estimate DecreasedL, Platelet Morphology Normal, Hypochromasia 1+, Anisocytosis 1+, Sodium Level 132L, Potassium Level 3.4L, Chloride Level 100, Carbon Dioxide Level 27, Anion Gap 5, Blood Urea Nitrogen 14, Creatinine 1.4H, Estimat Glomerular Filtration Rate > 60, Glucose Level 125H, Calcium Level 8.2L, Total Bilirubin 5.5H, Direct Bilirubin 2.3H, Aspartate Amino Transf (AST/SGOT) 39H, Alanine Aminotransferase (ALT/SGPT) 29, Alkaline Phosphatase 107, Total Protein 6.5, Albumin 1.6L, Globulin 4.9, Albumin/Globulin Ratio 0.3L Height (Feet): 5 Height (Inches): 9.00 Weight (Pounds): 322 Objective General: alert, cooperative, no distress, appears stated age Head: normocephalic, without obvious abnormality, atraumatic Eyes: conjunctivae/corneas clear. PERRL, EOM's intact Throat: lips, mucosa, and tongue normal. MMM Neck: supple, symmetrical, trachea midline, and no JVD Lungs: clear to auscultation bilaterally Heart: regular rate and rhythm, S1, S2 normal, no murmur, click, rub or gallop Abdomen: soft, non-tender, some abd distention, no discrete fluid wave, bowel sounds normal Extremities: extremities normal, atraumatic, no cyanosis, +BLE edema Pulses: 2+ and symmetric Skin: multiple chronic venous stasis ulcers Neurologic: grossly normal, no focal deficits Gadiel Tam M.D. May 15, 2018 10:25
[2018-05-15 12:00] VITALS: BP 122/72
--- NOTE | 2018-05-15 13:44 | General Progress Note ---
Assessment/Plan Assessment/Plan #. Thrombocytopenia, potentially secondary to septic shock and myleosuppresion, severe sepsis, RLE cellulitis in addition to PNA, closely monitor, peripheral smear has been reviewed. The patient continues to have lactic acidosis, improved at this time and, in addition, imaging reviewed. 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 --> hepatitis and hiv reviewed and is negative --> report and give Vit K and ffp and inr is elevated --> Stopped PROTONIX and also other drugs also reviewed as well --> appears baseline in the 50-100k range 2. Coagulopathy with portal hypertension, cirrhosis of liver, large volume ascites, requires paracentesis and requires vitamin K --> vit K prn basis --> on abx, vanc --> as per ID, appreciate their recs --> inr reviewed and now improved 3. Leukocytosis, likely secondary to underlying infection, ulceration seen by surgery, potentially related to underlying sepsis versus other causes such as SBP; but again has been seen by GI team --> s/p paracentesis and prn in the future --> on abx for right lower ext ulceration 4. AGNIESZKA, on IV fluids as needed 5. Acute encephalopathy --> pending eval with neuro if worsened 6. Septic shock. now has improved. --> s/p abx 7. SNF placement once found Greatly appreciate consultation JP MCCLOUD and RN Subjective Constitutional: Denies: no symptoms, chills, diaphoresis, fever, malaise, weakness, other HEENT: Denies: no symptoms, eye pain, blurred vision, tearing, double vision, ear pain, ear discharge, nose pain, nose congestion, throat pain, throat swelling, mouth pain, mouth swelling, other Cardiovascular: Denies: no symptoms, chest pain, edema, irregular heart rate, lightheadedness, palpitations, syncope, other Respiratory: Denies: no symptoms, cough, orthopnea, shortness of breath, SOB with excertion, SOB at rest, sputum, stridor, wheezing, other Gastrointestinal/Abdominal: Denies: no symptoms, abdomen distended, abdominal pain, black stools, tarry stools, blood in stool, constipated, diarrhea, difficulty swallowing, nausea, poor appetite, poor fluid intake, rectal bleeding , vomiting, other Genitourinary: Denies: no symptoms, burning, discharge, frequency, flank pain, hematuria, incontinence, pain, urgency, other Neurologic/Psychiatric: Denies: no symptoms, anxiety, depressed, emotional problems, headache, numbness, paresthesia, pre-existing deficit, seizure, tingling, tremors, weakness, other Endocrine: Denies: no symptoms, excessive sweating, flushing, intolerance to cold, intolerance to heat, increased hunger, increased thirst, increased urine, unexplained weight gain, unexplained weight loss, other Hematologic/Lymphatic: Denies: no symptoms, anemia, easy bleeding, easy bruising, other Allergies: Coded Allergies: No Known Allergies (Unverified , 04/29/18) Subjective c diff positive, on abx, remains without a fever Objective Last 24 Hour Vital Signs Date Time Temp Pulse Resp B/P (MAP) Pulse Ox O2 Delivery O2 Flow Rate FiO2 05/15/18 12:00 97.5 97 24 122/72 (89) 97 97.5 05/15/18 09:00 Room Air Room Air 05/15/18 08:25 96 Room Air 21 05/15/18 08:25 Room Air 21 05/15/18 08:00 97.5 105 22 113/67 (82) 95 97.5 05/15/18 04:00 97.6 101 20 111/56 (74) 100 97.6 05/15/18 00:00 97.9 100 20 110/57 (74) 100 97.9 05/14/18 21:00 Room Air Room Air 05/14/18 20:00 98.6 103 28 125/53 (77) 95 98.6 05/14/18 19:48 95 Room Air 21 05/14/18 19:48 Room Air 21 05/14/18 18:27 120/78 05/14/18 16:00 97.9 105 28 120/78 (92) 95 97.9 05/14/18 13:59 129/71 Intake and Output 05/14/18 05/15/18 19:00 07:00 Intake Total 3775.000 ml 485.000 ml Output Total 400 ml 550 ml Balance 3375.000 ml -65.000 ml Intake Oral 600 ml IV Total 3175.000 ml 485.000 ml Output Urine Total 400 ml 550 ml # Bowel Movements 4 4 Laboratory Tests 05/15/18 05:50: White Blood Count 9.2, Red Blood Count 2.16L, Hemoglobin 7.3L, Hematocrit 20.6L , Mean Corpuscular Volume 95, Mean Corpuscular Hemoglobin 33.7H, Mean Corpuscular Hemoglobin Concent 35.4, Red Cell Distribution Width 18.7H, Platelet Count 76L, Mean Platelet Volume 6.4L, Neutrophils (%) (Auto) , Lymphocytes (%) (Auto) , Monocytes (%) (Auto) , Eosinophils (%) (Auto) , Basophils (%) (Auto) , Differential Total Cells Counted 100, Neutrophils % ( Manual) 85H, Lymphocytes % (Manual) 7L, Monocytes % (Manual) 6, Eosinophils % ( Manual) 0, Basophils % (Manual) 0, Band Neutrophils 2, Platelet Estimate DecreasedL, Platelet Morphology Normal, Hypochromasia 1+, Anisocytosis 1+, Sodium Level 132L, Potassium Level 3.4L, Chloride Level 100, Carbon Dioxide Level 27, Anion Gap 5, Blood Urea Nitrogen 14, Creatinine 1.4H, Estimat Glomerular Filtration Rate > 60, Glucose Level 125H, Calcium Level 8.2L, Total Bilirubin 5.5H, Direct Bilirubin 2.3H, Aspartate Amino Transf (AST/SGOT) 39H, Alanine Aminotransferase (ALT/SGPT) 29, Alkaline Phosphatase 107, Total Protein 6.5, Albumin 1.6L, Globulin 4.9, Albumin/Globulin Ratio 0.3L Height (Feet): 5 Height (Inches): 9.00 Weight (Pounds): 322 General Appearance: alert EENT: TMs normal Neck: supple Cardiovascular: regular rhythm Respiratory/Chest: lungs clear Abdomen: no organomegaly Extremities: non-tender, other - RLE cellulitis has improved Edema: 1+ Leg (L), 1+ Leg (R) Neurologic: alert Skin: warm/dry Eric Irizarry MD May 15, 2018 13:44
[2018-05-15 16:00] VITALS: BP 123/69
--- NOTE | 2018-05-15 17:17 | General Progress Note ---
Assessment/Plan Assessment/Plan Assessment - UGIB - gastritis - N/V - Cirrhosis - alcoholic - portal HTN - no varicies on current EGD - presumed EtOH hepatitis - some recovery in labs noted - coagulopathy - ascites - s/p tap - sepsis, no SBP on paracentesis fluid - Resp failure - AMS, likely hepatic encephalopathy - hypoglycemia - guarded Recommendation: - restart IVF since Cr rising - continue lactulose - Xifaxan - follow labs - broad abx - IV PPI - change to PO at d/c Subjective Allergies: Coded Allergies: No Known Allergies (Unverified , 04/29/18) Subjective Above noted more nausea today some dry heaves poor po Objective Last 24 Hour Vital Signs Date Time Temp Pulse Resp B/P (MAP) Pulse Ox O2 Delivery O2 Flow Rate FiO2 05/15/18 16:00 98.1 94 20 123/69 (87) 97 98.1 05/15/18 14:17 122/72 05/15/18 12:00 97.5 97 24 122/72 (89) 97 97.5 05/15/18 09:00 Room Air Room Air 05/15/18 08:25 96 Room Air 21 05/15/18 08:25 Room Air 21 05/15/18 08:00 97.5 105 22 113/67 (82) 95 97.5 05/15/18 04:00 97.6 101 20 111/56 (74) 100 97.6 05/15/18 00:00 97.9 100 20 110/57 (74) 100 97.9 05/14/18 21:00 Room Air Room Air 05/14/18 20:00 98.6 103 28 125/53 (77) 95 98.6 05/14/18 19:48 95 Room Air 21 05/14/18 19:48 Room Air 21 05/14/18 18:27 120/78 Intake and Output 05/14/18 05/15/18 19:00 07:00 Intake Total 3775.000 ml 485.000 ml Output Total 400 ml 550 ml Balance 3375.000 ml -65.000 ml Intake Oral 600 ml IV Total 3175.000 ml 485.000 ml Output Urine Total 400 ml 550 ml # Bowel Movements 4 4 Laboratory Tests 05/15/18 05:50: White Blood Count 9.2, Red Blood Count 2.16L, Hemoglobin 7.3L, Hematocrit 20.6L , Mean Corpuscular Volume 95, Mean Corpuscular Hemoglobin 33.7H, Mean Corpuscular Hemoglobin Concent 35.4, Red Cell Distribution Width 18.7H, Platelet Count 76L, Mean Platelet Volume 6.4L, Neutrophils (%) (Auto) , Lymphocytes (%) (Auto) , Monocytes (%) (Auto) , Eosinophils (%) (Auto) , Basophils (%) (Auto) , Differential Total Cells Counted 100, Neutrophils % ( Manual) 85H, Lymphocytes % (Manual) 7L, Monocytes % (Manual) 6, Eosinophils % ( Manual) 0, Basophils % (Manual) 0, Band Neutrophils 2, Platelet Estimate DecreasedL, Platelet Morphology Normal, Hypochromasia 1+, Anisocytosis 1+, Sodium Level 132L, Potassium Level 3.4L, Chloride Level 100, Carbon Dioxide Level 27, Anion Gap 5, Blood Urea Nitrogen 14, Creatinine 1.4H, Estimat Glomerular Filtration Rate > 60, Glucose Level 125H, Calcium Level 8.2L, Total Bilirubin 5.5H, Direct Bilirubin 2.3H, Aspartate Amino Transf (AST/SGOT) 39H, Alanine Aminotransferase (ALT/SGPT) 29, Alkaline Phosphatase 107, Total Protein 6.5, Albumin 1.6L, Globulin 4.9, Albumin/Globulin Ratio 0.3L Height (Feet): 5 Height (Inches): 9.00 Weight (Pounds): 322 Objective WDWN WM NCAT supple CTA RRR Soft / Obese trace edema sedated Pierre Suggs MD May 15, 2018 17:16
[2018-05-15] MEDS: D5 1/2NS w/KCl 20mEq 1,000 ML IV SCH (18:03)
[2018-05-15 20:00] VITALS: BP 124/71
[2018-05-15] MEDS: Dyna-Hex 2% Top Sol 2oz TOPIC SCH (20:45)
[2018-05-16] VITALS: BP 121/71
[2018-05-16] MEDS: TraZODone 50mg tab ORAL PRN (00:57)
[2018-05-16 03:46] LABS: HEMATOCRIT 21.4 % (42.0-52.0); HEMOGLOBIN 7.4 G/DL (14.2-18.0); MEAN CORPUSCULAR VOLUME 95 FL (80-99); PLATELET COUNT 84 K/UL (150-450); RED BLOOD COUNT 2.24 M/UL (4.70-6.10); RED CELL DISTRIBUTION WIDTH 18.8 % (11.6-14.8); WHITE BLOOD COUNT 8.1 K/UL (4.8-10.8)
[2018-05-16 04:00] VITALS: BP 132/79
[2018-05-16 04:04] LABS: INR 2.1 (0.9-1.1)
[2018-05-16 04:16] LABS: ALANINE AMINOTRANSFERASE 30 U/L (12-78); ALBUMIN 1.7 G/DL (3.4-5.0); ALBUMIN/GLOBULIN RATIO 0.3 (1.0-2.7); ALKALINE PHOSPHATASE 107 U/L (46-116); ANION GAP 5 mmol/L (5-15); ASPARTATE AMINO TRANSFERASE 40 U/L (15-37); BILIRUBIN,TOTAL 6.1 MG/DL (0.2-1.0); BLOOD UREA NITROGEN 13 mg/dL (7-18); CALCIUM 7.9 MG/DL (8.5-10.1); CARBON DIOXIDE 26 MMOL/L (21-32); CHLORIDE 99 MMOL/L (98-107); CREATININE 1.5 MG/DL (0.55-1.30); POTASSIUM 3.5 MMOL/L (3.5-5.1); SODIUM 130 MMOL/L (136-145)
[2018-05-16 04:28] LABS: BILIRUBIN,DIRECT 2.2 MG/DL (0.0-0.3)
[2018-05-16] MEDS: Piperacillin/Tazobactam 3.375 GM in D5W 110 ML IVPB SCH ×2 (05:45→14:00)
[2018-05-16] MEDS: Pantoprazole Inj IVP SCH (06:20)
[2018-05-16 08:00] VITALS: BP 129/78
[2018-05-16] MEDS: Lactulose 20gm/30ml UDC ORAL SCH ×3 (09:00→17:04)
--- NOTE | 2018-05-16 09:12 | General Progress Note ---
Assessment/Plan Assessment/Plan #. Thrombocytopenia, potentially secondary to septic shock and myelosuppression , severe sepsis, RLE cellulitis in addition to PNA, closely monitor, peripheral smear has been reviewed. The patient continues to have lactic acidosis, improved at this time and, in addition, imaging reviewed. 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 Coagulopathy with portal hypertension, cirrhosis of liver, large volume ascites, requires paracentesis and requires vitamin K --> vit K prn basis --> on abx, vanc --> as per ID, appreciate their recs --> inr reviewed and now improved 3. Leukocytosis, likely secondary to underlying infection, ulceration seen by surgery, potentially related to underlying sepsis versus other causes such as SBP; but again has been seen by GI team --> s/p paracentesis and prn in the future --> on abx for right lower ext ulceration 4. AGNIESZKA, on IV fluids as needed 5. Acute encephalopathy --> pending eval with neuro if worsened 6. Septic shock. now has improved. --> s/p abx 7. SNF placement once found Greatly appreciate consultation JP MCCLOUD and RN Subjective Constitutional: Denies: no symptoms, chills, diaphoresis, fever, malaise, weakness, other HEENT: Denies: no symptoms, eye pain, blurred vision, tearing, double vision, ear pain, ear discharge, nose pain, nose congestion, throat pain, throat swelling, mouth pain, mouth swelling, other Cardiovascular: Denies: no symptoms, chest pain, edema, irregular heart rate, lightheadedness, palpitations, syncope, other Respiratory: Denies: no symptoms, cough, orthopnea, shortness of breath, SOB with excertion, SOB at rest, sputum, stridor, wheezing, other Gastrointestinal/Abdominal: Denies: no symptoms, abdomen distended, abdominal pain, black stools, tarry stools, blood in stool, constipated, diarrhea, difficulty swallowing, nausea, poor appetite, poor fluid intake, rectal bleeding , vomiting, other Genitourinary: Denies: no symptoms, burning, discharge, frequency, flank pain, hematuria, incontinence, pain, urgency, other Neurologic/Psychiatric: Denies: no symptoms, anxiety, depressed, emotional problems, headache, numbness, paresthesia, pre-existing deficit, seizure, tingling, tremors, weakness, other Endocrine: Denies: no symptoms, excessive sweating, flushing, intolerance to cold, intolerance to heat, increased hunger, increased thirst, increased urine, unexplained weight gain, unexplained weight loss, other Hematologic/Lymphatic: Denies: no symptoms, anemia, easy bleeding, easy bruising, other Allergies: Coded Allergies: No Known Allergies (Unverified , 04/29/18) Subjective on abx broad spectrum, no major events otherwise on Objective Last 24 Hour Vital Signs Date Time Temp Pulse Resp B/P (MAP) Pulse Ox O2 Delivery O2 Flow Rate FiO2 05/16/18 07:57 Room Air 21 05/16/18 07:57 94 Room Air 21 05/16/18 04:00 97.9 94 20 132/79 (96) 96 97.9 05/16/18 00:00 97.3 94 20 121/71 (88) 96 97.3 05/15/18 21:00 Room Air Room Air 05/15/18 20:00 97.9 104 19 124/71 (88) 92 97.9 05/15/18 19:47 Room Air 21 05/15/18 19:47 95 Room Air 21 05/15/18 18:03 123/69 05/15/18 16:00 98.1 94 20 123/69 (87) 97 98.1 05/15/18 14:17 122/72 05/15/18 12:00 97.5 97 24 122/72 (89) 97 97.5 Intake and Output 05/15/18 05/16/18 19:00 07:00 Intake Total 882.5 ml Output Total 450 ml Balance 882.5 ml -450 ml Intake Oral 800 ml IV Total 82.5 ml Output Urine Total 450 ml # Voids 3 # Bowel Movements 4 Laboratory Tests 05/16/18 03:00: White Blood Count 8.1, Red Blood Count 2.24L, Hemoglobin 7.4L, Hematocrit 21.4L , Mean Corpuscular Volume 95, Mean Corpuscular Hemoglobin 33.1H, Mean Corpuscular Hemoglobin Concent 34.8, Red Cell Distribution Width 18.8H, Platelet Count 84L, Mean Platelet Volume 6.5, Neutrophils (%) (Auto) , Lymphocytes (%) (Auto) , Monocytes (%) (Auto) , Eosinophils (%) (Auto) , Basophils (%) (Auto) , Prothrombin Time 21.4H, Prothromb Time International Ratio 2.1H, Sodium Level 130L, Potassium Level 3.5, Chloride Level 99, Carbon Dioxide Level 26, Anion Gap 5, Blood Urea Nitrogen 13, Creatinine 1.5H, Estimat Glomerular Filtration Rate 58.3, Glucose Level 127H, Calcium Level 7.9L, Total Bilirubin 6.1H, Direct Bilirubin 2.2H, Aspartate Amino Transf (AST/SGOT) 40H, Alanine Aminotransferase (ALT/SGPT) 30, Alkaline Phosphatase 107, Total Protein 6.7, Albumin 1.7L, Globulin 5.0, Albumin/Globulin Ratio 0.3L, Vancomycin Level Trough 25.9H Height (Feet): 5 Height (Inches): 9.00 Weight (Pounds): 324 General Appearance: no apparent distress EENT: TMs normal Neck: supple Cardiovascular: normal rate Respiratory/Chest: lungs clear Abdomen: soft Extremities: non-tender Edema: 1+ Leg (L), 1+ Leg (R) Edema: mild edema Neurologic: alert Eric Irizarry MD May 16, 2018 09:12
[2018-05-16] MEDS: D5 1/2NS w/KCl 20mEq 1,000 ML IV SCH (10:09)
[2018-05-16 12:00] VITALS: BP 130/76
--- NOTE | 2018-05-16 12:36 | Diagnostic Imaging Report ---
Indication: Chest pain Technique: XRAY Chest 1v Comparison: 05/12/2018 FINDINGS/IMPRESSION: Limited exam due to low lung volumes and underpenetration. Heart size and mediastinal contours likely stable. Right arm PICC line unchanged. Interstitial opacification/edema with blunting of the right costophrenic sulcus and more focal linear opacities in the left midlung. There are some patchy opacities in the right lung is well. These findings may be related to worsening disease or artifactually exaggerated due to lower lung volumes on this exam. Correlate clinically. No acute osseous abnormality.
--- NOTE | 2018-05-16 12:57 | Consultation ---
Consult Note Consult Note asked to eval for elevated Cr Cr rashawn 1.5 Na 130 Alb 1.7 Hgb 7.4 . Assessment/Plan Septic shock due to Providencia bacteremia - PICC placed and started back on IV antibiotics--on vanco, zosyn, difucan x 5 days per ID--currently day 3/ Acute upper GI bleed w/ hematemesis - underwent EGD 05/10/18 which showed no bleeding varices but hemorrhagic gastritis, s/p epinephrine injection, cont PPI , transfuse for hgb<7 or active bleeding. Hgb stable Acute hypoxic respiratory failure - stable respiratory status. Decompensated alcoholic cirrhosis c/b ascites and hepatic encephalopathy - s/p therapeutic paracentesis this admission, continue rifaximin and lactulose. AGNIESZKA due to ATN from sepsis and hypotension - Acute metabolic encephalopathy - resolving, Thrombocytopenia - multifactorial f Coagulopathy - 2/2 cirrhosis, ctm LE ulcerations - surgery following for wound care, no evidence of cellulitis Hypoglycemia - likely in setting of liver failure, ctm Diarrhea - Deconditioning - PT/OT eval, likely needs SNF. SW/Cm consulted. Pt hesitant to d /c to SNF, prefers to go home. Home health ordered Code Status: Full Stop Vanco- Anemia sinha Urine studies- Serum Os , TSH , Uric Acid, Lipid panel Ari Ortega MD May 16, 2018 12:57
[2018-05-16] MEDS: D5NS 1,000 ML IV SCH (13:16)
[2018-05-16 14:45] LABS: AMMONIA 92 umol/L (11-32)
[2018-05-16 15:08] LABS: CHOLESTEROL 62 MG/DL (< 200); FERRITIN 199 NG/ML (8-388); GAMMA GLUTAMYL TRANSPEPTIDASE 23 U/L (5-85); HDL CHOLESTEROL 22 MG/DL (40-60); PHOSPHORUS 2.5 MG/DL (2.5-4.9); TRIGLYCERIDES 31 MG/DL (30-150)
[2018-05-16 15:19] LABS: % IRON SATURATION 47 % (15-50); IRON 71 ug/dL (50-175); TOTAL IRON BINDING CAPACITY 150 ug/dL (250-450)
[2018-05-16 16:00] VITALS: BP 124/76
--- NOTE | 2018-05-16 17:40 | Infectious Diseases Prog Note ---
Assessment/Plan Assessment/Plan ASSESSMENT AND PLAN: 1. sepsis, shock, providencia bacteremia, mrsa pna, mrsa/proteus right leg wound infection, right leg cellulitis, gib, leukocytosis, fevers s/p bronchoscopy, sc-yeast, fungemia risk, leukocytosis better, chest x-ray better, fevers resolved - patient refusing iv abx - change to zyvox, cipro and diflucan x 48 hrs (patient started refusing iv yesterday) - monitor labs and chest x-ray - clinically improved 2. Liver cirrhosis. 3. Portal hypertension. 4. Ascites. 5. Anemia. 6. Thrombocytopenia. 7. Respiratory failure. 8. Low blood pressure. 9. Sepsis, shock. 10. Varices. 11. ETOH hepatitis. 12. Coagulopathy. 13. Altered mental status 14. hepatic encephalopathy 15. Past medical history noted. 16. He has no known allergies. 17. Social history is presumptively I think positive for ETOH. Cannot assess smoking or IV drug abuse. 18. Family history is noncontributory. 19. MAR was noted. 20. Case discussed with RN. 21. ICU care. 22. Case discussed with Dr. Rasmussen. 23. Continue treatment per primary consultants. 24. Poor prognosis. 25. Orders were entered and noted. 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 Subjective Constitutional: Reports: fatigue; Denies: fever HEENT: Denies: congestion Respiratory: Denies: shortness of breath Cardiovascular: Denies: chest pain Gastrointestinal/Abdominal: Denies: nausea, vomiting, diarrhea Genitourinary: Reports: other - + grimm Neurologic: Denies: headache Psychiatric: Denies: depression Skin: Denies: rash Hematologic: Denies: bleeding Musculoskeletal: Denies: pain Allergies: Coded Allergies: No Known Allergies (Unverified , 04/29/18) Objective Vital Signs Last 24 Hour Vital Signs Date Time Temp Pulse Resp B/P (MAP) Pulse Ox O2 Delivery O2 Flow Rate FiO2 05/16/18 17:00 124/76 05/16/18 16:00 97.5 105 25 124/76 (92) 95 97.5 05/16/18 13:16 130/76 05/16/18 12:00 97.8 105 25 130/76 (94) 96 97.8 05/16/18 10:13 129/78 9/24/18 09:00 Room Air Room Air 05/16/18 08:00 97.9 101 26 129/78 (95) 95 97.9 05/16/18 07:57 Room Air 21 05/16/18 07:57 94 Room Air 21 05/16/18 04:00 97.9 94 20 132/79 (96) 96 97.9 05/16/18 00:00 97.3 94 20 121/71 (88) 96 97.3 05/15/18 21:00 Room Air Room Air 05/15/18 20:00 97.9 104 19 124/71 (88) 92 97.9 05/15/18 19:47 Room Air 21 05/15/18 19:47 95 Room Air 21 05/15/18 18:03 123/69 Height (Feet): 5 Height (Inches): 9.00 Weight (Pounds): 324 General Appearance: no acute distress HEENT: normocephalic, atraumatic, anicteric Respiratory/Chest: crackles/rales, rhonchi - bilaterally Cardiovascular: normal rate, regular rhythm, no gallop/murmur, no JVD Abdomen: normal bowel sounds, soft, non tender, distended Genitourinary: other - + grimm - urine clear Extremities: no cyanosis Skin: no rash 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 Right internal jugular, grossly unchanged. Nasogastric tube in gastric cavity. Endotracheal tube 5 cm above the pamela. Increasing opacity in bilateral mid to lower lung zones. No pleural effusions. The visualized osseous structures are within normal limits. IMPRESSION: Stable tubes and lines as outlined above. Increasing opacity in bilateral mid to lower lung zones. CT imaging noted - reports noted 05/03/18 - Chest x-ray - Findings: Patchy, heterogeneous airspace opacities and interstitial opacities identified. Heart is stable. Tubes and lines are stable. IMPRESSION: Patchy lung disease likely on the basis of pulmonary edema. Infiltrates not excluded. Chest x-ray - 05/08 - FINDINGS: Lungs: Low lung volumes, which may be related to shallow inspiration. Bilateral perihilar opacities with diffuse patchy pulmonary opacities, suggesting pulmonary edema. Pleural space: Unremarkable. The costophrenic angles are sharp. No visible pneumothorax. Heart: Unremarkable. No cardiomegaly. Mediastinum: Unremarkable. Bones/joints: Unremarkable. IMPRESSION: 1. Low lung volumes, which may be related to shallow inspiration. 2. Bilateral perihilar opacities with diffuse patchy pulmonary opacities, suggesting pulmonary edema. Cannot exclude an underlying pneumonia. Chest x-ray - 05/10/18 Comparison: 05/08/2018 Findings: Interim improvement but persistence of previously demonstrated interstitial edema. There is some blunting of the right costophrenic sulcus, likely a small amount of pleural fluid. No new infiltrates. Heart size is normal Impression: Improved but persistent pulmonary interstitial edema, over 2 days Possible small right pleural effusion Chest x-ray - 05/12 - Comparison: 05/10/2018 Findings: Inspiration is suboptimal. There is atelectasis in the left perihilar region. Generalized mild interstitial edema persists, unchanged. Interim placement of right arm PICC. Impression: Hypoventilatory exam with left perihilar atelectasis Interim PICC placement Unchanged mild interstitial edema Chest x-ray - 05/16 - FINDINGS/IMPRESSION: Limited exam due to low lung volumes and underpenetration. Heart size and mediastinal contours likely stable. Right arm PICC line unchanged. Interstitial opacification/edema with blunting of the right costophrenic sulcus and more focal linear opacities in the left midlung. There are some patchy opacities in the right lung is well. These findings may be related to worsening disease or artifactually exaggerated due to lower lung volumes on this exam. Correlate clinically. No acute osseous abnormality. Microbiology Date/Time Source Procedure Growth Status 05/06/18 18:00 Blood Blood Culture - Final NO GROWTH AFTER 5 DAYS Complete 05/03/18 15:35 Ascities Fluid Gram Stain - Final Complete 05/03/18 15:35 Ascities Fluid Body Fluid Culture - Final NO GROWTH Complete 04/30/18 04:00 Wound Gram Stain - Final Complete 04/30/18 04:00 Wound Culture - Final Proteus Mirabilis Staphylococcus Aureus - Mrsa Complete 05/06/18 15:00 Bronchial Washings Not Specified Gram Stain - Final Complete 05/06/18 15:00 Bronchial Aspirate Culture - Final Mariah Albicans Mariah Dubliniensis Complete 05/04/18 05:00 Stool Clostridium difficile Toxin Assay - Final Complete 04/29/18 17:00 Rectum VRE Culture - Final Enterococcus Faecalis - Vre Complete Laboratory Tests Test 05/16/18 03:00 05/16/18 14:15 White Blood Count 8.1 K/UL (4.8-10.8) Red Blood Count 2.24 M/UL (4.70-6.10) L Hemoglobin 7.4 G/DL (14.2-18.0) L Hematocrit 21.4 % (42.0-52.0) L Mean Corpuscular Volume 95 FL (80-99) Mean Corpuscular Hemoglobin 33.1 PG (27.0-31.0) H Mean Corpuscular Hemoglobin Concent 34.8 G/DL (32.0-36.0) Red Cell Distribution Width 18.8 % (11.6-14.8) H Platelet Count 84 K/UL (150-450) L Mean Platelet Volume 6.5 FL (6.5-10.1) Neutrophils (%) (Auto) % (45.0-75.0) Lymphocytes (%) (Auto) % (20.0-45.0) Monocytes (%) (Auto) % (1.0-10.0) Eosinophils (%) (Auto) % (0.0-3.0) Basophils (%) (Auto) % (0.0-2.0) Prothrombin Time 21.4 SEC (9.30-11.50) H Prothromb Time International Ratio 2.1 (0.9-1.1) H Sodium Level 130 MMOL/L (136-145) L Potassium Level 3.5 MMOL/L (3.5-5.1) Chloride Level 99 MMOL/L (98-107) Carbon Dioxide Level 26 MMOL/L (21-32) Anion Gap 5 mmol/L (5-15) Blood Urea Nitrogen 13 mg/dL (7-18) Creatinine 1.5 MG/DL (0.55-1.30) H Estimat Glomerular Filtration Rate 58.3 mL/min (>60) Glucose Level 127 MG/DL (74-106) H Calcium Level 7.9 MG/DL (8.5-10.1) L Total Bilirubin 6.1 MG/DL (0.2-1.0) H Direct Bilirubin 2.2 MG/DL (0.0-0.3) H Aspartate Amino Transf (AST/SGOT) 40 U/L (15-37) H Alanine Aminotransferase (ALT/SGPT) 30 U/L (12-78) Alkaline Phosphatase 107 U/L (46-116) Total Protein 6.7 G/DL (6.4-8.2) Albumin 1.7 G/DL (3.4-5.0) L Globulin 5.0 g/dL Albumin/Globulin Ratio 0.3 (1.0-2.7) L Vancomycin Level Trough 25.9 ug/mL (5.0-12.0) H Urine Osmolality 404 mOsm/kg (429-449) L Urine Random Sodium < 20 mmol/L (20-110) L Osmolality 292 mOsm/kg (297-317) L Uric Acid 2.9 MG/DL (2.6-7.2) Phosphorus Level 2.5 MG/DL (2.5-4.9) Magnesium Level 1.1 MG/DL (1.8-2.4) L Iron Level 71 ug/dL (50-175) Total Iron Binding Capacity 150 ug/dL (250-450) L Percent Iron Saturation 47 % (15-50) Unsaturated Iron Binding 79 ug/dL (112-346) L Ferritin 199 NG/ML (8-388) Gamma Glutamyl Transpeptidase 23 U/L (5-85) Ammonia 92 umol/L (11-32) H C-Reactive Protein, Quantitative 1.3 mg/dL (0.00-0.90) H Pro-B-Type Natriuretic Peptide 338 pg/mL (0-125) H Triglycerides Level 31 MG/DL (30-150) Cholesterol Level 62 MG/DL (< 200) LDL Cholesterol 44 mg/dL (<100) HDL Cholesterol 22 MG/DL (40-60) L Cholesterol/HDL Ratio 2.8 (3.3-4.4) L Vitamin B12 Level 2000 PG/ML (193-986) H Folate 11.6 NG/ML (8.6-58.9) Thyroid Stimulating Hormone (TSH) 4.295 uiU/mL (0.358-3.740) Current Medications Medications (Trade) Dose Ordered Sig/Ry Route PRN Reason Start Time Stop Time Status Last Admin Dose Admin Chlorhexidine Gluconate (Fatemeh-Hex 2%) 1 applic DAILY@2000 TOPIC 05/13/18 20:00 06/09/18 19:59 05/15/18 20:45 Dextrose/Sodium Chloride 1,000 ml @ 50 mls/hr Q20H IV 05/16/18 13:00 06/15/18 12:59 05/16/18 13:16 Fluconazole/ Sodium Chloride 100 ml @ 100 mls/hr Q24H IV 05/13/18 18:00 05/17/18 17:59 05/15/18 19:08 Lactulose (Cephulac) 20 gm THREE TIMES A DAY ORAL 05/13/18 09:00 05/30/18 12:59 Ondansetron HCl (Zofran) 4 mg Q6H PRN IVP Nausea & Vomiting 05/13/18 01:30 06/09/18 01:29 05/13/18 16:35 Pantoprazole (Protonix) 40 mg EVERY 12 HOURS ORAL 05/16/18 21:00 06/15/18 20:59 Pentoxifylline (TRENtal) 400 mg THREE TIMES A DAY ORAL 05/13/18 09:00 05/31/18 08:59 05/16/18 17:00 Piperacillin Sod/ Tazobactam Sod 3.375 gm/Dextrose 110 ml @ 27.5 mls/hr EVERY 8 HOURS IVPB 05/13/18 14:30 05/20/18 14:29 05/16/18 05:45 Prochlorperazine (Compazine) 10 mg Q6H PRN IVP Nausea & Vomiting 05/16/18 15:15 06/15/18 15:14 Rifaximin (Xifaxan) 550 mg EVERY 12 HOURS ORAL 05/13/18 09:00 05/16/18 22:29 05/16/18 10:10 Trazodone HCl (Desyrel) 50 mg Q8H PRN ORAL INSOMNIA 05/13/18 20:15 06/12/18 20:14 05/16/18 00:57 Doris Ramos MD May 16, 2018 17:40
[2018-05-16] MEDS ORDERED: Fluconazole 100mg tab ORAL SCH (18:00)
[2018-05-16 20:00] VITALS: BP 110/69
[2018-05-16] MEDS ORDERED: Vancomycin 1.5gm/D5W 250ml 250 ML IVPB SCH (20:00)
[2018-05-16] MEDS: Dyna-Hex 2% Top Sol 2oz TOPIC SCH (20:28)
[2018-05-16] MEDS: Ciprofloxacin 500mg tab ORAL SCH (20:28)
--- NOTE | 2018-05-16 22:55 | General Progress Note ---
Assessment/Plan Assessment/Plan Assessment - UGIB - gastritis - N/V - Cirrhosis - alcoholic - portal HTN - no varicies on current EGD - presumed EtOH hepatitis - some recovery in labs noted - coagulopathy - ascites - s/p tap - sepsis, no SBP on paracentesis fluid - Resp failure - AMS, likely hepatic encephalopathy - hypoglycemia - guarded Recommendation: - renal f/u - continue lactulose - Xifaxan - follow labs - broad abx - IV PPI - change to PO at d/c Subjective Allergies: Coded Allergies: No Known Allergies (Unverified , 04/29/18) Subjective Above noted feels OK no new symptoms Objective Last 24 Hour Vital Signs Date Time Temp Pulse Resp B/P (MAP) Pulse Ox O2 Delivery O2 Flow Rate FiO2 05/16/18 21:03 Room Air Room Air 05/16/18 20:00 98.9 109 19 110/69 (83) 94 98.9 05/16/18 19:16 Room Air 21 05/16/18 19:16 95 Room Air 21 05/16/18 17:00 124/76 05/16/18 16:00 97.5 105 25 124/76 (92) 95 97.5 05/16/18 13:16 130/76 05/16/18 12:00 97.8 105 25 130/76 (94) 96 97.8 05/16/18 10:13 129/78 05/16/18 09:00 Room Air Room Air 05/16/18 08:00 97.9 101 26 129/78 (95) 95 97.9 05/16/18 07:57 Room Air 21 05/16/18 07:57 94 Room Air 21 05/16/18 04:00 97.9 94 20 132/79 (96) 96 97.9 05/16/18 00:00 97.3 94 20 121/71 (88) 96 97.3 Intake and Output 05/15/18 05/16/18 19:00 07:00 Intake Total 882.5 ml Output Total 450 ml Balance 882.5 ml -450 ml Intake Oral 800 ml IV Total 82.5 ml Output Urine Total 450 ml # Voids 3 # Bowel Movements 4 Laboratory Tests 05/16/18 03:00: White Blood Count 8.1, Red Blood Count 2.24L, Hemoglobin 7.4L, Hematocrit 21.4L , Mean Corpuscular Volume 95, Mean Corpuscular Hemoglobin 33.1H, Mean Corpuscular Hemoglobin Concent 34.8, Red Cell Distribution Width 18.8H, Platelet Count 84L, Mean Platelet Volume 6.5, Neutrophils (%) (Auto) , Lymphocytes (%) (Auto) , Monocytes (%) (Auto) , Eosinophils (%) (Auto) , Basophils (%) (Auto) , Prothrombin Time 21.4H, Prothromb Time International Ratio 2.1H, Sodium Level 130L, Potassium Level 3.5, Chloride Level 99, Carbon Dioxide Level 26, Anion Gap 5, Blood Urea Nitrogen 13, Creatinine 1.5H, Estimat Glomerular Filtration Rate 58.3, Glucose Level 127H, Calcium Level 7.9L, Total Bilirubin 6.1H, Direct Bilirubin 2.2H, Aspartate Amino Transf (AST/SGOT) 40H, Alanine Aminotransferase (ALT/SGPT) 30, Alkaline Phosphatase 107, Total Protein 6.7, Albumin 1.7L, Globulin 5.0, Albumin/Globulin Ratio 0.3L, Vancomycin Level Trough 25.9H 05/16/18 14:15: Urine Osmolality 404L, Urine Random Sodium < 20L, Osmolality 292L, Uric Acid 2.9 , Phosphorus Level 2.5, Magnesium Level 1.1L, Iron Level 71, Total Iron Binding Capacity 150L, Percent Iron Saturation 47, Unsaturated Iron Binding 79L, Ferritin 199, Gamma Glutamyl Transpeptidase 23, Ammonia 92H, C-Reactive Protein , Quantitative 1.3H, Pro-B-Type Natriuretic Peptide 338H, Triglycerides Level 31 , Cholesterol Level 62, LDL Cholesterol 44, HDL Cholesterol 22L, Cholesterol/ HDL Ratio 2.8L, Vitamin B12 Level 2000H, Folate 11.6, Thyroid Stimulating Hormone (TSH) 4.295H Height (Feet): 5 Height (Inches): 9.00 Weight (Pounds): 324 Objective WDWN WM NCAT supple CTA RRR Soft / Obese trace edema sedated Pierre Suggs MD May 16, 2018 22:55
[2018-05-17] VITALS: BP 121/76
[2018-05-17 04:10] VITALS: BP 125/77
[2018-05-17 05:05] LABS: HEMATOCRIT 22.3 % (42.0-52.0); HEMOGLOBIN 7.5 G/DL (14.2-18.0); MEAN CORPUSCULAR VOLUME 96 FL (80-99); PLATELET COUNT 75 K/UL (150-450); RED BLOOD COUNT 2.32 M/UL (4.70-6.10); RED CELL DISTRIBUTION WIDTH 18.4 % (11.6-14.8); WHITE BLOOD COUNT 6.6 K/UL (4.8-10.8)
[2018-05-17 05:42] LABS: ALANINE AMINOTRANSFERASE 31 U/L (12-78); ALBUMIN 1.7 G/DL (3.4-5.0); ALBUMIN/GLOBULIN RATIO 0.3 (1.0-2.7); ALKALINE PHOSPHATASE 115 U/L (46-116); ANION GAP 6 mmol/L (5-15); ASPARTATE AMINO TRANSFERASE 36 U/L (15-37); BILIRUBIN,TOTAL 5.4 MG/DL (0.2-1.0); BLOOD UREA NITROGEN 12 mg/dL (7-18); CARBON DIOXIDE 27 MMOL/L (21-32); CHLORIDE 100 MMOL/L (98-107); CREATININE 1.4 MG/DL (0.55-1.30); POTASSIUM 3.7 MMOL/L (3.5-5.1); SODIUM 133 MMOL/L (136-145)
[2018-05-17 05:47] LABS: BILIRUBIN,DIRECT 2.3 MG/DL (0.0-0.3)
--- NOTE | 2018-05-17 06:56 | General Progress Note ---
Assessment/Plan Assessment/Plan #. Thrombocytopenia, potentially secondary to septic shock and myelosuppression , severe sepsis, RLE cellulitis in addition to PNA, closely monitor, peripheral smear has been reviewed. The patient continues to have lactic acidosis, improved at this time and, in addition, imaging reviewed. In addition has ETOH HEPATITIS AND ALCOHOLIC CIRRHOSIS --> The patient noted to be with cirrhosis with portal hypertension, expected coagulopathy, thus persistent, chronic --> mixing study does correct therefore has a factor vit K deficiency --> hepatitis and hiv reviewed and is negative --> administer Vit K and ffp and inr is elevated --> Stopped PROTONIX and also other drugs also reviewed as well --> appears baseline in the 50-100k range given cirrhosis 2. Coagulopathy with portal hypertension, cirrhosis of liver, large volume ascites, requires paracentesis and requires vitamin K --> vit K prn basis --> on abx, vanc --> as per ID, appreciate their recs --> inr reviewed and now improved 3. Leukocytosis, likely secondary to underlying infection, ulceration seen by surgery, potentially related to underlying sepsis versus other causes such as SBP; but again has been seen by GI team --> s/p paracentesis and prn in the future --> on abx for right lower ext ulceration 4. AGNIESZKA, on IV fluids as needed 5. Acute encephalopathy --> pending eval with neuro if ams worsened 6. Septic shock. now has improved. --> s/p abx 7. SNF placement once found Greatly appreciate consultation JP MCCLOUD and RN Subjective Constitutional: Reports: no symptoms HEENT: Reports: no symptoms Cardiovascular: Reports: no symptoms Respiratory: Reports: no symptoms Gastrointestinal/Abdominal: Reports: poor appetite Genitourinary: Reports: no symptoms Neurologic/Psychiatric: Reports: no symptoms Endocrine: Reports: no symptoms Hematologic/Lymphatic: Reports: no symptoms Allergies: Coded Allergies: No Known Allergies (Unverified , 04/29/18) Subjective on abx broad spectrum, no major events otherwise have been noted Objective Last 24 Hour Vital Signs Date Time Temp Pulse Resp B/P (MAP) Pulse Ox O2 Delivery O2 Flow Rate FiO2 05/17/18 04:10 98.5 91 19 125/77 (93) 97 98.5 05/17/18 00:00 98.1 98 19 121/76 (91) 98 98.1 05/16/18 21:03 Room Air Room Air 05/16/18 20:00 98.9 109 19 110/69 (83) 94 98.9 05/16/18 19:16 Room Air 21 05/16/18 19:16 95 Room Air 21 05/16/18 17:00 124/76 05/16/18 16:00 97.5 105 25 124/76 (92) 95 97.5 05/16/18 13:16 130/76 05/16/18 12:00 97.8 105 25 130/76 (94) 96 97.8 05/16/18 10:13 129/78 05/16/18 09:00 Room Air Room Air 05/16/18 08:00 97.9 101 26 129/78 (95) 95 97.9 05/16/18 07:57 Room Air 21 05/16/18 07:57 94 Room Air 21 Intake and Output 05/16/18 05/17/18 19:00 07:00 Intake Total 1155.0 ml 700 ml Output Total 300 ml 1100 ml Balance 855.0 ml -400 ml Intake Oral 620 ml IV Total 535.0 ml 700 ml Output Urine Total 300 ml 1100 ml # Bowel Movements 3 1 Laboratory Tests 05/16/18 14:15: Urine Osmolality 404L, Urine Random Sodium < 20L, Osmolality 292L, Uric Acid 2.9 , Phosphorus Level 2.5, Magnesium Level 1.1L, Iron Level 71, Total Iron Binding Capacity 150L, Percent Iron Saturation 47, Unsaturated Iron Binding 79L, Ferritin 199, Gamma Glutamyl Transpeptidase 23, Ammonia 92H, C-Reactive Protein , Quantitative 1.3H, Pro-B-Type Natriuretic Peptide 338H, Triglycerides Level 31 , Cholesterol Level 62, LDL Cholesterol 44, HDL Cholesterol 22L, Cholesterol/ HDL Ratio 2.8L, Vitamin B12 Level 2000H, Folate 11.6, Thyroid Stimulating Hormone (TSH) 4.295H 05/17/18 04:00: White Blood Count 6.6, Red Blood Count 2.32L, Hemoglobin 7.5L, Hematocrit 22.3L , Mean Corpuscular Volume 96, Mean Corpuscular Hemoglobin 32.3H, Mean Corpuscular Hemoglobin Concent 33.6, Red Cell Distribution Width 18.4H, Platelet Count 75L, Mean Platelet Volume 5.8L, Neutrophils (%) (Auto) , Lymphocytes (%) (Auto) , Monocytes (%) (Auto) , Eosinophils (%) (Auto) , Basophils (%) (Auto) , Neutrophils % (Manual) [Pending], Lymphocytes % (Manual) [Pending], Platelet Estimate [Pending], Platelet Morphology [Pending], Sodium Level 133L, Potassium Level 3.7, Chloride Level 100, Carbon Dioxide Level 27, Anion Gap 6, Blood Urea Nitrogen 12, Creatinine 1.4H, Estimat Glomerular Filtration Rate > 60, Glucose Level 134H, Calcium Level 8.0L, Total Bilirubin 5.4H, Direct Bilirubin 2.3H, Aspartate Amino Transf (AST/SGOT) 36, Alanine Aminotransferase (ALT/SGPT) 31, Alkaline Phosphatase 115, Total Protein 6.8, Albumin 1.7L, Globulin 5.1, Albumin/Globulin Ratio 0.3L, Random Vancomycin Level 16.6 Height (Feet): 5 Height (Inches): 9.00 Weight (Pounds): 328 General Appearance: no apparent distress EENT: TMs normal Neck: supple Cardiovascular: normal rate Respiratory/Chest: no respiratory distress Abdomen: no organomegaly Extremities: non-tender Edema: no edema noted Leg (L), no edema noted Leg (R) Edema: mild edema Neurologic: alert Skin: warm/dry Eric Irizarry MD May 17, 2018 06:56
--- NOTE | 2018-05-17 07:45 | General Progress Note ---
Assessment/Plan Status: stable Assessment/Plan Septic shock due to Providencia bacteremia - PICC placed and started back on IV antibiotics, now s/p vanco and zosyn, change to zyvox, cipro and diflucan x 48 hrs per ID Acute upper GI bleed w/ hematemesis - underwent EGD 05/10/18 which showed no bleeding varices but hemorrhagic gastritis, s/p epinephrine injection, cont PPI , transfuse for hgb<7 or active bleeding. Hgb 7.4, ctm Acute hypoxic respiratory failure - stable respiratory status. Decompensated alcoholic cirrhosis c/b ascites and hepatic encephalopathy - s/p therapeutic paracentesis this admission, continue rifaximin and lactulose. 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 Coagulopathy - 2/2 cirrhosis, ctm LE ulcerations - surgery following for wound care, no evidence of cellulitis Hypoglycemia - likely in setting of liver failure, ctm Diarrhea - neg stool C. diff Deconditioning - PT/OT Dispo - pt from recuperative fpc and needs to be independent on d/c. Will require SNF placement DVT Prophylaxis: SCD Code Status: Full Hospital Classification Declaration: Based on this initial evaluation, and depending on the patient's clinical course, I anticipate that this patient will require hospitalization for 1-2 days for IV abx and close respiratory/ hemodynamic monitoring. Disposition: Once the patient is stable to leave the hospital, I anticipate the patient will likely be discharged to the following environment: home with HH vs SNF I spent 38 minutes on this patient's case, and 21 minutes were dedicated to counseling and/or care coordination. Discussed with patient/family, nursing staff, SW/CM, GI, ID regarding clinical status, treatment course, and disposition planning. Time of note may not reflect time of encounter. Subjective Date patient seen: May 16, 2018 Time patient seen: 11:00 ROS Limited/Unobtainable: No Constitutional: Reports: no symptoms HEENT: Reports: no symptoms Cardiovascular: Reports: no symptoms Respiratory: Reports: no symptoms Gastrointestinal/Abdominal: Reports: nausea Genitourinary: Reports: no symptoms Neurologic/Psychiatric: Reports: no symptoms Endocrine: Reports: no symptoms Hematologic/Lymphatic: Reports: no symptoms Allergies: Coded Allergies: No Known Allergies (Unverified , 04/29/18) Subjective No acute o/n events Hgb 7.4 SCr up to 1.5 More awake, alert. Denies pain, SOB C/o nausea Per SW/CM, pt from recuperative fpc and needs to be independent on d/c. D/w pt that this is not a safe plan and he will need SNF Objective Last 24 Hour Vital Signs Date Time Temp Pulse Resp B/P (MAP) Pulse Ox O2 Delivery O2 Flow Rate FiO2 05/17/18 04:10 98.5 91 19 125/77 (93) 97 98.5 05/17/18 00:00 98.1 98 19 121/76 (91) 98 98.1 05/16/18 21:03 Room Air Room Air 05/16/18 20:00 98.9 109 19 110/69 (83) 94 98.9 05/16/18 19:16 Room Air 21 05/16/18 19:16 95 Room Air 21 05/16/18 17:00 124/76 05/16/18 16:00 97.5 105 25 124/76 (92) 95 97.5 05/16/18 13:16 130/76 05/16/18 12:00 97.8 105 25 130/76 (94) 96 97.8 05/16/18 10:13 129/78 05/16/18 09:00 Room Air Room Air 05/16/18 08:00 97.9 101 26 129/78 (95) 95 97.9 05/16/18 07:57 Room Air 21 05/16/18 07:57 94 Room Air 21 Intake and Output 05/16/18 05/17/18 19:00 07:00 Intake Total 1155.0 ml 750 ml Output Total 300 ml 1100 ml Balance 855.0 ml -350 ml Intake Oral 620 ml IV Total 535.0 ml 750 ml Output Urine Total 300 ml 1100 ml # Bowel Movements 3 1 Laboratory Tests 05/16/18 14:15: Urine Osmolality 404L, Urine Random Sodium < 20L, Osmolality 292L, Uric Acid 2.9 , Phosphorus Level 2.5, Magnesium Level 1.1L, Iron Level 71, Total Iron Binding Capacity 150L, Percent Iron Saturation 47, Unsaturated Iron Binding 79L, Ferritin 199, Gamma Glutamyl Transpeptidase 23, Ammonia 92H, C-Reactive Protein , Quantitative 1.3H, Pro-B-Type Natriuretic Peptide 338H, Triglycerides Level 31 , Cholesterol Level 62, LDL Cholesterol 44, HDL Cholesterol 22L, Cholesterol/ HDL Ratio 2.8L, Vitamin B12 Level 2000H, Folate 11.6, Thyroid Stimulating Hormone (TSH) 4.295H 05/17/18 04:00: White Blood Count 6.6, Red Blood Count 2.32L, Hemoglobin 7.5L, Hematocrit 22.3L , Mean Corpuscular Volume 96, Mean Corpuscular Hemoglobin 32.3H, Mean Corpuscular Hemoglobin Concent 33.6, Red Cell Distribution Width 18.4H, Platelet Count 75L, Mean Platelet Volume 5.8L, Neutrophils (%) (Auto) , Lymphocytes (%) (Auto) , Monocytes (%) (Auto) , Eosinophils (%) (Auto) , Basophils (%) (Auto) , Neutrophils % (Manual) [Pending], Lymphocytes % (Manual) [Pending], Platelet Estimate [Pending], Platelet Morphology [Pending], Sodium Level 133L, Potassium Level 3.7, Chloride Level 100, Carbon Dioxide Level 27, Anion Gap 6, Blood Urea Nitrogen 12, Creatinine 1.4H, Estimat Glomerular Filtration Rate > 60, Glucose Level 134H, Calcium Level 8.0L, Total Bilirubin 5.4H, Direct Bilirubin 2.3H, Aspartate Amino Transf (AST/SGOT) 36, Alanine Aminotransferase (ALT/SGPT) 31, Alkaline Phosphatase 115, Total Protein 6.8, Albumin 1.7L, Globulin 5.1, Albumin/Globulin Ratio 0.3L, Random Vancomycin Level 16.6 Height (Feet): 5 Height (Inches): 9.00 Weight (Pounds): 328 Objective General: alert, cooperative, no distress, appears stated age Head: normocephalic, without obvious abnormality, atraumatic Eyes: conjunctivae/corneas clear. PERRL, EOM's intact Throat: lips, mucosa, and tongue normal. MMM Neck: supple, symmetrical, trachea midline, and no JVD Lungs: clear to auscultation bilaterally Heart: regular rate and rhythm, S1, S2 normal, no murmur, click, rub or gallop Abdomen: soft, non-tender, some abd distention, no discrete fluid wave, bowel sounds normal Extremities: extremities normal, atraumatic, no cyanosis, +BLE edema Pulses: 2+ and symmetric Skin: multiple chronic venous stasis ulcers Neurologic: grossly normal, no focal deficits Gadiel Tam M.D. May 17, 2018 07:45
[2018-05-17 08:00] VITALS: BP 101/59
[2018-05-17] MEDS: Fluconazole 100mg tab ORAL SCH (08:57)
[2018-05-17] MEDS: Ciprofloxacin 500mg tab ORAL SCH ×2 (08:57→20:24)
[2018-05-17] MEDS: D5NS 1,000 ML IV SCH (08:58)
[2018-05-17] MEDS: Lactulose 20gm/30ml UDC ORAL SCH ×4 (08:58→17:45)
--- NOTE | 2018-05-17 11:56 | Nephrology Progress Note ---
Assessment/Plan Problem List: (1) Acute kidney failure (2) Acute encephalopathy (3) Cirrhosis of liver Assessment Septic shock due to Providencia bacteremia - PICC placed and started back on IV antibiotics--on vanco, zosyn, difucan x 5 days per ID--currently day 3/ Acute upper GI bleed w/ hematemesis - underwent EGD 05/10/18 which showed no bleeding varices but hemorrhagic gastritis, s/p epinephrine injection, cont PPI , transfuse for hgb<7 or active bleeding. Hgb stable Acute hypoxic respiratory failure - stable respiratory status. Decompensated alcoholic cirrhosis c/b ascites and hepatic encephalopathy - s/p therapeutic paracentesis this admission, continue rifaximin and lactulose. AGNIESZKA due to ATN from sepsis and hypotension - Acute metabolic encephalopathy - resolving, Thrombocytopenia - multifactorial f Coagulopathy - 2/2 cirrhosis, ctm LE ulcerations - surgery following for wound care, no evidence of cellulitis Hypoglycemia - likely in setting of liver failure, ctm Diarrhea - Deconditioning - PT/OT eval, likely needs SNF. SW/Cm consulted. Pt hesitant to d /c to SNF, prefers to go home. Home health ordered Code Status: Full Plan mag supplement suggest transfusion monitor vanco level increase lactulose dose midodrine Subjective ROS Limited/Unobtainable: No Constitutional: Reports: malaise, weakness Objective Objective Last 24 Hour Vital Signs Date Time Temp Pulse Resp B/P (MAP) Pulse Ox O2 Delivery O2 Flow Rate FiO2 05/17/18 09:00 Room Air Room Air 05/17/18 08:57 101/59 05/17/18 08:00 95.5 107 16 101/59 (73) 97 95.5 05/17/18 07:35 95 Room Air 05/17/18 07:35 Room Air 05/17/18 04:10 98.5 91 19 125/77 (93) 97 98.5 05/17/18 00:00 98.1 98 19 121/76 (91) 98 98.1 05/16/18 21:03 Room Air Room Air 05/16/18 20:00 98.9 109 19 110/69 (83) 94 98.9 05/16/18 19:16 Room Air 21 05/16/18 19:16 95 Room Air 21 05/16/18 17:00 124/76 05/16/18 16:00 97.5 105 25 124/76 (92) 95 97.5 05/16/18 13:16 130/76 05/16/18 12:00 97.8 105 25 130/76 (94) 96 97.8 Intake and Output 05/16/18 05/17/18 19:00 07:00 Intake Total 1155.0 ml 750 ml Output Total 300 ml 1100 ml Balance 855.0 ml -350 ml Intake Oral 620 ml IV Total 535.0 ml 750 ml Output Urine Total 300 ml 1100 ml # Bowel Movements 3 1 Laboratory Tests 05/16/18 14:15: Urine Osmolality 404L, Urine Random Sodium < 20L, Osmolality 292L, Uric Acid 2.9 , Phosphorus Level 2.5, Magnesium Level 1.1L, Iron Level 71, Total Iron Binding Capacity 150L, Percent Iron Saturation 47, Unsaturated Iron Binding 79L, Ferritin 199, Gamma Glutamyl Transpeptidase 23, Ammonia 92H, C-Reactive Protein , Quantitative 1.3H, Pro-B-Type Natriuretic Peptide 338H, Triglycerides Level 31 , Cholesterol Level 62, LDL Cholesterol 44, HDL Cholesterol 22L, Cholesterol/ HDL Ratio 2.8L, Vitamin B12 Level 2000H, Folate 11.6, Thyroid Stimulating Hormone (TSH) 4.295H 05/17/18 04:00: White Blood Count 6.6, Red Blood Count 2.32L, Hemoglobin 7.5L, Hematocrit 22.3L , Mean Corpuscular Volume 96, Mean Corpuscular Hemoglobin 32.3H, Mean Corpuscular Hemoglobin Concent 33.6, Red Cell Distribution Width 18.4H, Platelet Count 75L, Mean Platelet Volume 5.8L, Neutrophils (%) (Auto) , Lymphocytes (%) (Auto) , Monocytes (%) (Auto) , Eosinophils (%) (Auto) , Basophils (%) (Auto) , Differential Total Cells Counted 100, Neutrophils % ( Manual) 79H, Lymphocytes % (Manual) 7L, Monocytes % (Manual) 9, Eosinophils % ( Manual) 3, Basophils % (Manual) 2, Band Neutrophils 0, Platelet Estimate DecreasedL, Platelet Morphology Normal, Hypochromasia 3+, Anisocytosis 2+, Sodium Level 133L, Potassium Level 3.7, Chloride Level 100, Carbon Dioxide Level 27, Anion Gap 6, Blood Urea Nitrogen 12, Creatinine 1.4H, Estimat Glomerular Filtration Rate > 60, Glucose Level 134H, Calcium Level 8.0L, Total Bilirubin 5.4H, Direct Bilirubin 2.3H, Aspartate Amino Transf (AST/SGOT) 36, Alanine Aminotransferase (ALT/SGPT) 31, Alkaline Phosphatase 115, Total Protein 6.8, Albumin 1.7L, Globulin 5.1, Albumin/Globulin Ratio 0.3L, Random Vancomycin Level 16.6 Height (Feet): 5 Height (Inches): 9.00 Weight (Pounds): 328 General Appearance: mild distress Cardiovascular: tachycardia Respiratory/Chest: decreased breath sounds Abdomen: distended Ari Ortega MD May 17, 2018 11:56
[2018-05-17 12:00] VITALS: BP 112/65
[2018-05-17] MEDS ORDERED: NaCl 3% 500ml 250 ML IV SCH (13:00)
--- NOTE | 2018-05-17 14:53 | General Progress Note ---
Assessment/Plan Assessment/Plan encephalopathy due to [facility] – [place] agitation seroquel prn provided ro/st Subjective Date patient seen: May 17, 2018 Neurologic/Psychiatric: Reports: anxiety, depressed, emotional problems Allergies: Coded Allergies: No Known Allergies (Unverified , 04/29/18) Subjective the pt is nauseous has periods of agitation Objective Last 24 Hour Vital Signs Date Time Temp Pulse Resp B/P (MAP) Pulse Ox O2 Delivery O2 Flow Rate FiO2 05/17/18 12:40 112/65 05/17/18 12:00 97.0 98 18 112/65 (81) 99 97.0 05/17/18 09:00 Room Air Room Air 05/17/18 08:57 101/59 05/17/18 08:00 95.5 107 16 101/59 (73) 97 95.5 05/17/18 07:35 95 Room Air 21 05/17/18 07:35 Room Air 05/17/18 04:10 98.5 91 19 125/77 (93) 97 98.5 05/17/18 00:00 98.1 98 19 121/76 (91) 98 98.1 05/16/18 21:03 Room Air Room Air 05/16/18 20:00 98.9 109 19 110/69 (83) 94 98.9 05/16/18 19:16 Room Air 21 05/16/18 19:16 95 Room Air 21 05/16/18 17:00 124/76 05/16/18 16:00 97.5 105 25 124/76 (92) 95 97.5 Intake and Output 05/16/18 05/17/18 19:00 07:00 Intake Total 1155.0 ml 750 ml Output Total 300 ml 1100 ml Balance 855.0 ml -350 ml Intake Oral 620 ml IV Total 535.0 ml 750 ml Output Urine Total 300 ml 1100 ml # Bowel Movements 3 1 Laboratory Tests 05/17/18 04:00: White Blood Count 6.6, Red Blood Count 2.32L, Hemoglobin 7.5L, Hematocrit 22.3L , Mean Corpuscular Volume 96, Mean Corpuscular Hemoglobin 32.3H, Mean Corpuscular Hemoglobin Concent 33.6, Red Cell Distribution Width 18.4H, Platelet Count 75L, Mean Platelet Volume 5.8L, Neutrophils (%) (Auto) , Lymphocytes (%) (Auto) , Monocytes (%) (Auto) , Eosinophils (%) (Auto) , Basophils (%) (Auto) , Differential Total Cells Counted 100, Neutrophils % ( Manual) 79H, Lymphocytes % (Manual) 7L, Monocytes % (Manual) 9, Eosinophils % ( Manual) 3, Basophils % (Manual) 2, Band Neutrophils 0, Platelet Estimate DecreasedL, Platelet Morphology Normal, Hypochromasia 3+, Anisocytosis 2+, Sodium Level 133L, Potassium Level 3.7, Chloride Level 100, Carbon Dioxide Level 27, Anion Gap 6, Blood Urea Nitrogen 12, Creatinine 1.4H, Estimat Glomerular Filtration Rate > 60, Glucose Level 134H, Calcium Level 8.0L, Total Bilirubin 5.4H, Direct Bilirubin 2.3H, Aspartate Amino Transf (AST/SGOT) 36, Alanine Aminotransferase (ALT/SGPT) 31, Alkaline Phosphatase 115, Total Protein 6.8, Albumin 1.7L, Globulin 5.1, Albumin/Globulin Ratio 0.3L, Random Vancomycin Level 16.6 Height (Feet): 5 Height (Inches): 9.00 Weight (Pounds): 328 Chava Rivas MD May 17, 2018 14:53
[2018-05-17 16:00] VITALS: BP 124/65
[2018-05-17 20:00] VITALS: BP 113/73
[2018-05-17] MEDS: Dyna-Hex 2% Top Sol 2oz TOPIC SCH (20:24)
--- NOTE | 2018-05-17 21:17 | General Progress Note ---
Assessment/Plan Assessment/Plan Assessment - UGIB - gastritis - N/V - Cirrhosis - alcoholic - portal HTN - no varicies on current EGD - presumed EtOH hepatitis - some recovery in labs noted - coagulopathy - ascites - s/p tap - sepsis, no SBP on paracentesis fluid - Resp failure - AMS, likely hepatic encephalopathy - hypoglycemia - guarded Recommendation: - renal f/u - continue lactulose - Xifaxan - follow labs - broad abx - IV PPI - change to PO at d/c Subjective Allergies: Coded Allergies: No Known Allergies (Unverified , 04/29/18) Subjective Above noted feels OK no new symptoms Objective Last 24 Hour Vital Signs Date Time Temp Pulse Resp B/P (MAP) Pulse Ox O2 Delivery O2 Flow Rate FiO2 05/17/18 19:50 Room Air 21 05/17/18 19:49 96 Room Air 21 05/17/18 17:45 124/65 05/17/18 16:00 97.9 108 20 124/65 (84) 99 97.9 05/17/18 12:40 112/65 05/17/18 12:00 97.0 98 18 112/65 (81) 99 97.0 05/17/18 09:00 Room Air Room Air 05/17/18 08:57 101/59 05/17/18 08:00 95.5 107 16 101/59 (73) 97 95.5 05/17/18 07:35 95 Room Air 21 05/17/18 07:35 Room Air 05/17/18 04:10 98.5 91 19 125/77 (93) 97 98.5 05/17/18 00:00 98.1 98 19 121/76 (91) 98 98.1 Intake and Output 05/16/18 05/17/18 19:00 07:00 Intake Total 1155.0 ml 750 ml Output Total 300 ml 1100 ml Balance 855.0 ml -350 ml Intake Oral 620 ml IV Total 535.0 ml 750 ml Output Urine Total 300 ml 1100 ml # Bowel Movements 3 1 Laboratory Tests 05/17/18 04:00: White Blood Count 6.6, Red Blood Count 2.32L, Hemoglobin 7.5L, Hematocrit 22.3L , Mean Corpuscular Volume 96, Mean Corpuscular Hemoglobin 32.3H, Mean Corpuscular Hemoglobin Concent 33.6, Red Cell Distribution Width 18.4H, Platelet Count 75L, Mean Platelet Volume 5.8L, Neutrophils (%) (Auto) , Lymphocytes (%) (Auto) , Monocytes (%) (Auto) , Eosinophils (%) (Auto) , Basophils (%) (Auto) , Differential Total Cells Counted 100, Neutrophils % ( Manual) 79H, Lymphocytes % (Manual) 7L, Monocytes % (Manual) 9, Eosinophils % ( Manual) 3, Basophils % (Manual) 2, Band Neutrophils 0, Platelet Estimate DecreasedL, Platelet Morphology Normal, Hypochromasia 3+, Anisocytosis 2+, Sodium Level 133L, Potassium Level 3.7, Chloride Level 100, Carbon Dioxide Level 27, Anion Gap 6, Blood Urea Nitrogen 12, Creatinine 1.4H, Estimat Glomerular Filtration Rate > 60, Glucose Level 134H, Calcium Level 8.0L, Total Bilirubin 5.4H, Direct Bilirubin 2.3H, Aspartate Amino Transf (AST/SGOT) 36, Alanine Aminotransferase (ALT/SGPT) 31, Alkaline Phosphatase 115, Total Protein 6.8, Albumin 1.7L, Globulin 5.1, Albumin/Globulin Ratio 0.3L, Random Vancomycin Level 16.6 Height (Feet): 5 Height (Inches): 9.00 Weight (Pounds): 328 Objective WDWN WM NCAT supple CTA RRR Soft / Obese trace edema sedated Pierre Suggs MD May 17, 2018 21:17
--- NOTE | 2018-05-17 23:26 | General Progress Note ---
Assessment/Plan Status: stable Assessment/Plan Septic shock due to Providencia bacteremia - PICC placed and started back on IV antibiotics, now s/p vanco and zosyn, changed to zyvox, cipro and diflucan x 24 hrs per ID Acute upper GI bleed w/ hematemesis - underwent EGD 05/10/18 which showed no bleeding varices but hemorrhagic gastritis, s/p epinephrine injection, cont PPI , transfuse for hgb<7 or active bleeding. Hgb 7.5, ctm Acute hypoxic respiratory failure - stable respiratory status. Decompensated alcoholic cirrhosis c/b ascites and hepatic encephalopathy - s/p therapeutic paracentesis this admission, continue rifaximin and lactulose. 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 Coagulopathy - 2/2 cirrhosis, ctm LE ulcerations - surgery following for wound care, no evidence of cellulitis Hypoglycemia - likely in setting of liver failure, ctm Diarrhea - neg stool C. diff Deconditioning - PT/OT Dispo - pt from recuperative longterm and needs to be independent on d/c. Will require SNF placement DVT Prophylaxis: SCD Code Status: Full Hospital Classification Declaration: Based on this initial evaluation, and depending on the patient's clinical course, I anticipate that this patient will require hospitalization for 1-2 days for IV abx and close respiratory/ hemodynamic monitoring. Disposition: Once the patient is stable to leave the hospital, I anticipate the patient will likely be discharged to the following environment: home with HH vs SNF I spent 38 minutes on this patient's case, and 21 minutes were dedicated to counseling and/or care coordination. Discussed with patient/family, nursing staff, SW/CM, GI, ID regarding clinical status, treatment course, and disposition planning. Time of note may not reflect time of encounter. Subjective Date patient seen: May 17, 2018 Time patient seen: 10:00 ROS Limited/Unobtainable: No Constitutional: Reports: no symptoms HEENT: Reports: no symptoms Cardiovascular: Reports: no symptoms Respiratory: Reports: no symptoms Gastrointestinal/Abdominal: Reports: abdomen distended, nausea Genitourinary: Reports: no symptoms Neurologic/Psychiatric: Reports: no symptoms Endocrine: Reports: no symptoms Hematologic/Lymphatic: Reports: no symptoms Allergies: Coded Allergies: No Known Allergies (Unverified , 04/29/18) All Systems: reviewed and negative except above Subjective No acute o/n events Hgb 7.5 SCr up to 1.4 More awake, alert. Denies pain, SOB C/o nausea Per SW/CM, pt from recuperative longterm and needs to be independent on d/c. D/w pt that this is not a safe plan and he will need SNF Objective Last 24 Hour Vital Signs Date Time Temp Pulse Resp B/P (MAP) Pulse Ox O2 Delivery O2 Flow Rate FiO2 05/17/18 21:50 Room Air Room Air 05/17/18 20:00 98.3 107 19 113/73 (86) 96 98.3 05/17/18 19:50 Room Air 21 05/17/18 19:49 96 Room Air 21 05/17/18 17:45 124/65 05/17/18 16:00 97.9 108 20 124/65 (84) 99 97.9 05/17/18 12:40 112/65 05/17/18 12:00 97.0 98 18 112/65 (81) 99 97.0 05/17/18 09:00 Room Air Room Air 05/17/18 08:57 101/59 05/17/18 08:00 95.5 107 16 101/59 (73) 97 95.5 05/17/18 07:35 95 Room Air 21 05/17/18 07:35 Room Air 05/17/18 04:10 98.5 91 19 125/77 (93) 97 98.5 05/17/18 00:00 98.1 98 19 121/76 (91) 98 98.1 Intake and Output 05/16/18 05/17/18 19:00 07:00 Intake Total 1155.0 ml 750 ml Output Total 300 ml 1100 ml Balance 855.0 ml -350 ml Intake Oral 620 ml IV Total 535.0 ml 750 ml Output Urine Total 300 ml 1100 ml # Bowel Movements 3 1 Laboratory Tests 05/17/18 04:00: White Blood Count 6.6, Red Blood Count 2.32L, Hemoglobin 7.5L, Hematocrit 22.3L , Mean Corpuscular Volume 96, Mean Corpuscular Hemoglobin 32.3H, Mean Corpuscular Hemoglobin Concent 33.6, Red Cell Distribution Width 18.4H, Platelet Count 75L, Mean Platelet Volume 5.8L, Neutrophils (%) (Auto) , Lymphocytes (%) (Auto) , Monocytes (%) (Auto) , Eosinophils (%) (Auto) , Basophils (%) (Auto) , Differential Total Cells Counted 100, Neutrophils % ( Manual) 79H, Lymphocytes % (Manual) 7L, Monocytes % (Manual) 9, Eosinophils % ( Manual) 3, Basophils % (Manual) 2, Band Neutrophils 0, Platelet Estimate DecreasedL, Platelet Morphology Normal, Hypochromasia 3+, Anisocytosis 2+, Sodium Level 133L, Potassium Level 3.7, Chloride Level 100, Carbon Dioxide Level 27, Anion Gap 6, Blood Urea Nitrogen 12, Creatinine 1.4H, Estimat Glomerular Filtration Rate > 60, Glucose Level 134H, Calcium Level 8.0L, Total Bilirubin 5.4H, Direct Bilirubin 2.3H, Aspartate Amino Transf (AST/SGOT) 36, Alanine Aminotransferase (ALT/SGPT) 31, Alkaline Phosphatase 115, Total Protein 6.8, Albumin 1.7L, Globulin 5.1, Albumin/Globulin Ratio 0.3L, Random Vancomycin Level 16.6 Height (Feet): 5 Height (Inches): 9.00 Weight (Pounds): 328 Objective General: alert, cooperative, no distress, appears stated age Head: normocephalic, without obvious abnormality, atraumatic Eyes: conjunctivae/corneas clear. PERRL, EOM's intact Throat: lips, mucosa, and tongue normal. MMM Neck: supple, symmetrical, trachea midline, and no JVD Lungs: clear to auscultation bilaterally Heart: regular rate and rhythm, S1, S2 normal, no murmur, click, rub or gallop Abdomen: soft, non-tender, some abd distention, no discrete fluid wave, bowel sounds normal Extremities: extremities normal, atraumatic, no cyanosis, +BLE edema Pulses: 2+ and symmetric Skin: multiple chronic venous stasis ulcers Neurologic: grossly normal, no focal deficits Gadiel Tam M.D. May 17, 2018 23:26
[2018-05-18 00:33] VITALS: BP 120/84
[2018-05-18 04:17] VITALS: BP 123/75
[2018-05-18 06:33] LABS: HEMATOCRIT 21.9 % (42.0-52.0); HEMOGLOBIN 7.4 G/DL (14.2-18.0); MEAN CORPUSCULAR VOLUME 96 FL (80-99); PLATELET COUNT 70 K/UL (150-450); RED BLOOD COUNT 2.28 M/UL (4.70-6.10); RED CELL DISTRIBUTION WIDTH 18.2 % (11.6-14.8); WHITE BLOOD COUNT 6.2 K/UL (4.8-10.8)
[2018-05-18 06:57] LABS: ALANINE AMINOTRANSFERASE 27 U/L (12-78); ALBUMIN 1.7 G/DL (3.4-5.0); ALBUMIN/GLOBULIN RATIO 0.3 (1.0-2.7); ALKALINE PHOSPHATASE 118 U/L (46-116); ANION GAP 5 mmol/L (5-15); ASPARTATE AMINO TRANSFERASE 35 U/L (15-37); BILIRUBIN,TOTAL 4.9 MG/DL (0.2-1.0); BLOOD UREA NITROGEN 12 mg/dL (7-18); CALCIUM 7.8 MG/DL (8.5-10.1); CARBON DIOXIDE 27 MMOL/L (21-32); CHLORIDE 101 MMOL/L (98-107); CREATININE 1.4 MG/DL (0.55-1.30); PHOSPHORUS 2.7 MG/DL (2.5-4.9); POTASSIUM 3.8 MMOL/L (3.5-5.1); SODIUM 133 MMOL/L (136-145)
[2018-05-18 07:11] LABS: BILIRUBIN,DIRECT 2.1 MG/DL (0.0-0.3)
[2018-05-18 08:00] VITALS: BP 115/67
--- NOTE | 2018-05-18 08:09 | General Progress Note ---
Assessment/Plan Assessment/Plan #. Thrombocytopenia, potentially secondary to septic shock and myelosuppression , severe sepsis, RLE cellulitis in addition to PNA, closely monitor, peripheral smear has been reviewed. The patient continues to have lactic acidosis, improved at this time and, in addition, imaging reviewed. 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 Coagulopathy with portal hypertension, cirrhosis of liver, large volume ascites, requires paracentesis and requires vitamin K --> vit K prn basis --> on abx, vanc --> as per ID, appreciate their recs --> inr reviewed and now improved #. Leukocytosis, likely secondary to underlying infection, ulceration seen by surgery, potentially related to underlying sepsis versus other causes such as SBP; but again has been seen by GI team --> s/p paracentesis and prn in the future --> on abx for right lower ext ulceration #. AGNIESZKA, on IV fluids as needed #. Acute encephalopathy --> pending eval with neuro if ams worsened #. Septic shock. now has improved. --> s/p abx #. SNF placement once found Greatly appreciate consultation JP MCCLOUD and RN Subjective HEENT: Denies: no symptoms, eye pain, blurred vision, tearing, double vision, ear pain, ear discharge, nose pain, nose congestion, throat pain, throat swelling, mouth pain, mouth swelling, other Cardiovascular: Denies: no symptoms, chest pain, edema, irregular heart rate, lightheadedness, palpitations, syncope, other Respiratory: Denies: no symptoms, cough, orthopnea, shortness of breath, SOB with excertion, SOB at rest, sputum, stridor, wheezing, other Gastrointestinal/Abdominal: Denies: no symptoms, abdomen distended, abdominal pain, black stools, tarry stools, blood in stool, constipated, diarrhea, difficulty swallowing, nausea, poor appetite, poor fluid intake, rectal bleeding , vomiting, other Genitourinary: Denies: no symptoms, burning, discharge, frequency, flank pain, hematuria, incontinence, pain, urgency, other Neurologic/Psychiatric: Denies: no symptoms, anxiety, depressed, emotional problems, headache, numbness, paresthesia, pre-existing deficit, seizure, tingling, tremors, weakness, other Endocrine: Denies: no symptoms, excessive sweating, flushing, intolerance to cold, intolerance to heat, increased hunger, increased thirst, increased urine, unexplained weight gain, unexplained weight loss, other Hematologic/Lymphatic: Denies: no symptoms, anemia, easy bleeding, easy bruising, other Allergies: Coded Allergies: No Known Allergies (Unverified , 04/29/18) Subjective on abx broad spectrum, sleepy this am Objective Last 24 Hour Vital Signs Date Time Temp Pulse Resp B/P (MAP) Pulse Ox O2 Delivery O2 Flow Rate FiO2 05/18/18 04:17 98.6 102 20 123/75 (91) 95 98.6 05/18/18 00:33 99.9 100 20 120/84 (96) 96 99.9 05/17/18 21:50 Room Air Room Air 05/17/18 20:00 98.3 107 19 113/73 (86) 96 98.3 05/17/18 19:50 Room Air 21 05/17/18 19:49 96 Room Air 21 05/17/18 17:45 124/65 05/17/18 16:00 97.9 108 20 124/65 (84) 99 97.9 05/17/18 12:40 112/65 05/17/18 12:00 97.0 98 18 112/65 (81) 99 97.0 05/17/18 09:00 Room Air Room Air 05/17/18 08:57 101/59 Intake and Output 05/17/18 05/18/18 19:00 07:00 Intake Total 630 ml 240 ml Output Total 450 ml Balance 630 ml -210 ml Intake Oral 480 ml 240 ml IV Total 150 ml Output Urine Total 450 ml # Bowel Movements 4 Laboratory Tests 05/18/18 06:05: White Blood Count 6.2, Red Blood Count 2.28L, Hemoglobin 7.4L, Hematocrit 21.9L , Mean Corpuscular Volume 96, Mean Corpuscular Hemoglobin 32.6H, Mean Corpuscular Hemoglobin Concent 34.0, Red Cell Distribution Width 18.2H, Platelet Count 70L, Mean Platelet Volume 5.9L, Neutrophils (%) (Auto) , Lymphocytes (%) (Auto) , Monocytes (%) (Auto) , Eosinophils (%) (Auto) , Basophils (%) (Auto) , Differential Total Cells Counted 100, Neutrophils % ( Manual) 79H, Lymphocytes % (Manual) 5L, Monocytes % (Manual) 11H, Eosinophils % (Manual) 4H, Basophils % (Manual) 0, Band Neutrophils 1, Platelet Estimate DecreasedL, Platelet Morphology Normal, Hypochromasia 1+, Anisocytosis 2+, Macrocytosis 1+, Sodium Level 133L, Potassium Level 3.8, Chloride Level 101, Carbon Dioxide Level 27, Anion Gap 5, Blood Urea Nitrogen 12, Creatinine 1.4H, Estimat Glomerular Filtration Rate > 60, Glucose Level 123H, Hemoglobin A1c 3.8L , Calcium Level 7.8L, Phosphorus Level 2.7, Magnesium Level 1.3L, Total Bilirubin 4.9H, Direct Bilirubin 2.1H, Aspartate Amino Transf (AST/SGOT) 35, Alanine Aminotransferase (ALT/SGPT) 27, Alkaline Phosphatase 118H, Total Protein 6.7, Albumin 1.7L, Globulin 5.0, Albumin/Globulin Ratio 0.3L Height (Feet): 5 Height (Inches): 9.00 Weight (Pounds): 326 General Appearance: alert EENT: TMs normal Neck: non-tender Cardiovascular: regular rhythm Respiratory/Chest: no accessory muscle use Abdomen: soft Extremities: non-tender Edema: mild edema Eric Irizarry MD May 18, 2018 08:09
[2018-05-18] MEDS: Ciprofloxacin 500mg tab ORAL SCH (08:28)
[2018-05-18] MEDS: Fluconazole 100mg tab ORAL SCH (08:28)
[2018-05-18] MEDS: Lactulose 20gm/30ml UDC ORAL SCH ×3 (08:29→17:07)
[2018-05-18 12:00] VITALS: BP 118/73
--- NOTE | 2018-05-18 13:15 | Nephrology Progress Note ---
Assessment/Plan Problem List: (1) Acute kidney failure (2) Acute encephalopathy (3) Cirrhosis of liver Assessment Septic shock due to Providencia bacteremia - PICC placed and started back on IV antibiotics--on vanco, zosyn, difucan x 5 days per ID--currently day 3 Acute upper GI bleed w/ hematemesis - underwent EGD 05/10/18 which showed no bleeding varices but hemorrhagic gastritis, s/p epinephrine injection, cont PPI , transfuse for hgb<7 or active bleeding. Hgb stable Acute hypoxic respiratory failure - stable respiratory status. Decompensated alcoholic cirrhosis c/b ascites and hepatic encephalopathy - s/p therapeutic paracentesis this admission, continue rifaximin and lactulose. AGNIESZKA due to ATN from sepsis and hypotension - Acute metabolic encephalopathy - resolving, Thrombocytopenia - multifactorial f Coagulopathy - 2/2 cirrhosis, ctm LE ulcerations - surgery following for wound care, no evidence of cellulitis Hypoglycemia - likely in setting of liver failure, ctm Diarrhea - Deconditioning - PT/OT eval, likely needs SNF. SW/Cm consulted. Pt hesitant to d /c to SNF, prefers to go home. Home health ordered Code Status: Full Plan mag supplement suggest transfusion monitor vanco level increase lactulose dose midodrine Subjective ROS Limited/Unobtainable: No Constitutional: Reports: weakness Objective Objective Last 24 Hour Vital Signs Date Time Temp Pulse Resp B/P (MAP) Pulse Ox O2 Delivery O2 Flow Rate FiO2 05/18/18 12:27 118/73 05/18/18 12:00 97.5 94 19 118/73 (88) 96 97.5 05/18/18 09:45 95 Room Air 21 05/18/18 09:45 Room Air 21 05/18/18 09:00 Room Air Room Air 05/18/18 08:27 115/67 05/18/18 08:00 97.3 105 22 115/67 (83) 94 97.3 05/18/18 04:17 98.6 102 20 123/75 (91) 95 98.6 05/18/18 00:33 99.9 100 20 120/84 (96) 96 99.9 05/17/18 21:50 Room Air Room Air 05/17/18 20:00 98.3 107 19 113/73 (86) 96 98.3 05/17/18 19:50 Room Air 21 05/17/18 19:49 96 Room Air 21 05/17/18 17:45 124/65 05/17/18 16:00 97.9 108 20 124/65 (84) 99 97.9 Intake and Output 05/17/18 05/18/18 19:00 07:00 Intake Total 630 ml 240 ml Output Total 450 ml Balance 630 ml -210 ml Intake Oral 480 ml 240 ml IV Total 150 ml Output Urine Total 450 ml # Bowel Movements 4 Laboratory Tests 05/18/18 06:05: White Blood Count 6.2, Red Blood Count 2.28L, Hemoglobin 7.4L, Hematocrit 21.9L , Mean Corpuscular Volume 96, Mean Corpuscular Hemoglobin 32.6H, Mean Corpuscular Hemoglobin Concent 34.0, Red Cell Distribution Width 18.2H, Platelet Count 70L, Mean Platelet Volume 5.9L, Neutrophils (%) (Auto) , Lymphocytes (%) (Auto) , Monocytes (%) (Auto) , Eosinophils (%) (Auto) , Basophils (%) (Auto) , Differential Total Cells Counted 100, Neutrophils % ( Manual) 79H, Lymphocytes % (Manual) 5L, Monocytes % (Manual) 11H, Eosinophils % (Manual) 4H, Basophils % (Manual) 0, Band Neutrophils 1, Platelet Estimate DecreasedL, Platelet Morphology Normal, Hypochromasia 1+, Anisocytosis 2+, Macrocytosis 1+, Sodium Level 133L, Potassium Level 3.8, Chloride Level 101, Carbon Dioxide Level 27, Anion Gap 5, Blood Urea Nitrogen 12, Creatinine 1.4H, Estimat Glomerular Filtration Rate > 60, Glucose Level 123H, Hemoglobin A1c 3.8L , Calcium Level 7.8L, Phosphorus Level 2.7, Magnesium Level 1.3L, Total Bilirubin 4.9H, Direct Bilirubin 2.1H, Aspartate Amino Transf (AST/SGOT) 35, Alanine Aminotransferase (ALT/SGPT) 27, Alkaline Phosphatase 118H, Total Protein 6.7, Albumin 1.7L, Globulin 5.0, Albumin/Globulin Ratio 0.3L Height (Feet): 5 Height (Inches): 9.00 Weight (Pounds): 326 General Appearance: no apparent distress Cardiovascular: tachycardia Respiratory/Chest: decreased breath sounds Abdomen: distended Ari Ortega MD May 18, 2018 13:15
--- NOTE | 2018-05-18 13:54 | General Progress Note ---
Assessment/Plan Assessment/Plan encephalopathy due to [facility] [place] seroquel prn provided ro/st Subjective Neurologic/Psychiatric: Reports: anxiety, depressed Allergies: Coded Allergies: No Known Allergies (Unverified , 04/29/18) Subjective the pt is nauseous has periods of agitation Objective Last 24 Hour Vital Signs Date Time Temp Pulse Resp B/P (MAP) Pulse Ox O2 Delivery O2 Flow Rate FiO2 05/18/18 12:27 118/73 05/18/18 12:00 97.5 94 19 118/73 (88) 96 97.5 05/18/18 09:45 95 Room Air 21 05/18/18 09:45 Room Air 21 05/18/18 09:00 Room Air Room Air 05/18/18 08:27 115/67 05/18/18 08:00 97.3 105 22 115/67 (83) 94 97.3 05/18/18 04:17 98.6 102 20 123/75 (91) 95 98.6 05/18/18 00:33 99.9 100 20 120/84 (96) 96 99.9 05/17/18 21:50 Room Air Room Air 05/17/18 20:00 98.3 107 19 113/73 (86) 96 98.3 05/17/18 19:50 Room Air 21 05/17/18 19:49 96 Room Air 21 05/17/18 17:45 124/65 05/17/18 16:00 97.9 108 20 124/65 (84) 99 97.9 Intake and Output 05/17/18 05/18/18 19:00 07:00 Intake Total 630 ml 240 ml Output Total 450 ml Balance 630 ml -210 ml Intake Oral 480 ml 240 ml IV Total 150 ml Output Urine Total 450 ml # Bowel Movements 4 Laboratory Tests 05/18/18 06:05: White Blood Count 6.2, Red Blood Count 2.28L, Hemoglobin 7.4L, Hematocrit 21.9L , Mean Corpuscular Volume 96, Mean Corpuscular Hemoglobin 32.6H, Mean Corpuscular Hemoglobin Concent 34.0, Red Cell Distribution Width 18.2H, Platelet Count 70L, Mean Platelet Volume 5.9L, Neutrophils (%) (Auto) , Lymphocytes (%) (Auto) , Monocytes (%) (Auto) , Eosinophils (%) (Auto) , Basophils (%) (Auto) , Differential Total Cells Counted 100, Neutrophils % ( Manual) 79H, Lymphocytes % (Manual) 5L, Monocytes % (Manual) 11H, Eosinophils % (Manual) 4H, Basophils % (Manual) 0, Band Neutrophils 1, Platelet Estimate DecreasedL, Platelet Morphology Normal, Hypochromasia 1+, Anisocytosis 2+, Macrocytosis 1+, Sodium Level 133L, Potassium Level 3.8, Chloride Level 101, Carbon Dioxide Level 27, Anion Gap 5, Blood Urea Nitrogen 12, Creatinine 1.4H, Estimat Glomerular Filtration Rate > 60, Glucose Level 123H, Hemoglobin A1c 3.8L , Calcium Level 7.8L, Phosphorus Level 2.7, Magnesium Level 1.3L, Total Bilirubin 4.9H, Direct Bilirubin 2.1H, Aspartate Amino Transf (AST/SGOT) 35, Alanine Aminotransferase (ALT/SGPT) 27, Alkaline Phosphatase 118H, Total Protein 6.7, Albumin 1.7L, Globulin 5.0, Albumin/Globulin Ratio 0.3L Height (Feet): 5 Height (Inches): 9.00 Weight (Pounds): 326 Chava Rivas MD May 18, 2018 13:54
--- NOTE | 2018-05-18 15:08 | Diagnostic Imaging Report ---
Indication: Cough Technique: One view of the chest Comparison: 05/15/2018 Findings: Right arm PICC remains. There is slightly decreased interstitial edema. An of atelectasis or scarring in the left perihilar region is again demonstrated. Inspiration is suboptimal. Heart is upper limits normal in size. Impression: Improved interstitial congestion, over 3 days, with slight residual. Other findings as noted
[2018-05-18 16:00] VITALS: BP 127/74
--- NOTE | 2018-05-18 16:08 | Infectious Diseases Prog Note ---
Assessment/Plan Assessment/Plan ASSESSMENT AND PLAN: 1. sepsis, shock, providencia bacteremia, mrsa pna, mrsa/proteus right leg wound infection, right leg cellulitis, gib, leukocytosis, fevers s/p bronchoscopy, sc-yeast, fungemia risk, leukocytosis better, chest x-ray better, fevers resolved - finish zyvox, cipro and diflucan - discontinue - monitor labs and chest x-ray - clinically improved, chest x-ray improved 2. Liver cirrhosis. 3. Portal hypertension. 4. Ascites. 5. Anemia. 6. Thrombocytopenia. 7. Respiratory failure. 8. Low blood pressure. 9. Sepsis, shock. 10. Varices. 11. ETOH hepatitis. 12. Coagulopathy. 13. Altered mental status 14. hepatic encephalopathy 15. Past medical history noted. 16. He has no known allergies. 17. Social history is presumptively I think positive for ETOH. Cannot assess smoking or IV drug abuse. 18. Family history is noncontributory. 19. MAR was noted. 20. Case discussed with RN. 21. ICU care. 22. Case discussed with Dr. Rasmussen. 23. Continue treatment per primary consultants. 24. Poor prognosis. 25. Orders were entered and noted. 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 Subjective Constitutional: Denies: fever HEENT: Denies: congestion Cardiovascular: Denies: chest pain Gastrointestinal/Abdominal: Denies: nausea, vomiting, diarrhea Genitourinary: Reports: other - + grimm Neurologic: Denies: headache Psychiatric: Denies: depression Skin: Reports: other - no m/p rash; Denies: rash Hematologic: Denies: bleeding Allergies: Coded Allergies: No Known Allergies (Unverified , 04/29/18) Objective Vital Signs Last 24 Hour Vital Signs Date Time Temp Pulse Resp B/P (MAP) Pulse Ox O2 Delivery O2 Flow Rate FiO2 05/18/18 12:27 118/73 05/18/18 12:00 97.5 94 19 118/73 (88) 96 97.5 05/18/18 09:45 95 Room Air 21 05/18/18 09:45 Room Air 21 05/18/18 09:00 Room Air Room Air 05/18/18 08:27 115/67 05/18/18 08:00 97.3 105 22 115/67 (83) 94 97.3 05/18/18 04:17 98.6 102 20 123/75 (91) 95 98.6 05/18/18 00:33 99.9 100 20 120/84 (96) 96 99.9 05/17/18 21:50 Room Air Room Air 05/17/18 20:00 98.3 107 19 113/73 (86) 96 98.3 05/17/18 19:50 Room Air 21 05/17/18 19:49 96 Room Air 21 05/17/18 17:45 124/65 Height (Feet): 5 Height (Inches): 9.00 Weight (Pounds): 326 General Appearance: no acute distress HEENT: normocephalic, atraumatic, anicteric, mucous membranes moist Respiratory/Chest: lungs clear, normal breath sounds, no respiratory distress, no accessory muscle use Cardiovascular: normal rate, regular rhythm, no gallop/murmur, no JVD Abdomen: normal bowel sounds, soft, non tender, no organomegaly, non distended Genitourinary: other - + grimm - urine clear Extremities: no cyanosis Skin: no rash, other - no m/p rash Neurologic/Psychiatric: corrective therapy aide II-XII grossly normal, alert, oriented x 3, responsive Lymphatic: no neck adenopathy Musculoskeletal: no effusion Objective Procedure: XRAY Chest 1v 05/01 - chest x-ray - INDICATION: Infection COMPARISON: Chest x-ray dated 04/30/18 FINDINGS: Single frontal view demonstrates a normal cardiomediastinal silhouette. Right internal jugular, grossly unchanged. Nasogastric tube in gastric cavity. Endotracheal tube 5 cm above the pamela. Increasing opacity in bilateral mid to lower lung zones. No pleural effusions. The visualized osseous structures are within normal limits. IMPRESSION: Stable tubes and lines as outlined above. Increasing opacity in bilateral mid to lower lung zones. CT imaging noted - reports noted 05/03/18 - Chest x-ray - Findings: Patchy, heterogeneous airspace opacities and interstitial opacities identified. Heart is stable. Tubes and lines are stable. IMPRESSION: Patchy lung disease likely on the basis of pulmonary edema. Infiltrates not excluded. Chest x-ray - 05/08 - FINDINGS: Lungs: Low lung volumes, which may be related to shallow inspiration. Bilateral perihilar opacities with diffuse patchy pulmonary opacities, suggesting pulmonary edema. Pleural space: Unremarkable. The costophrenic angles are sharp. No visible pneumothorax. Heart: Unremarkable. No cardiomegaly. Mediastinum: Unremarkable. Bones/joints: Unremarkable. IMPRESSION: 1. Low lung volumes, which may be related to shallow inspiration. 2. Bilateral perihilar opacities with diffuse patchy pulmonary opacities, suggesting pulmonary edema. Cannot exclude an underlying pneumonia. Chest x-ray - 05/10/18 Comparison: 05/08/2018 Findings: Interim improvement but persistence of previously demonstrated interstitial edema. There is some blunting of the right costophrenic sulcus, likely a small amount of pleural fluid. No new infiltrates. Heart size is normal Impression: Improved but persistent pulmonary interstitial edema, over 2 days Possible small right pleural effusion Chest x-ray - 05/12 - Comparison: 05/10/2018 Findings: Inspiration is suboptimal. There is atelectasis in the left perihilar region. Generalized mild interstitial edema persists, unchanged. Interim placement of right arm PICC. Impression: Hypoventilatory exam with left perihilar atelectasis Interim PICC placement Unchanged mild interstitial edema Chest x-ray - 05/16 - FINDINGS/IMPRESSION: Limited exam due to low lung volumes and underpenetration. Heart size and mediastinal contours likely stable. Right arm PICC line unchanged. Interstitial opacification/edema with blunting of the right costophrenic sulcus and more focal linear opacities in the left midlung. There are some patchy opacities in the right lung is well. These findings may be related to worsening disease or artifactually exaggerated due to lower lung volumes on this exam. Correlate clinically. No acute osseous abnormality. Chest x-ray - 05/18 - Findings: Right arm PICC remains. There is slightly decreased interstitial edema. An of atelectasis or scarring in the left perihilar region is again demonstrated. Inspiration is suboptimal. Heart is upper limits normal in size. Impression: Improved interstitial congestion, over 3 days, with slight residual. Other findings as noted Microbiology Date/Time Source Procedure Growth Status 05/06/18 18:00 Blood Blood Culture - Final NO GROWTH AFTER 5 DAYS Complete 05/03/18 15:35 Ascities Fluid Gram Stain - Final Complete 05/03/18 15:35 Ascities Fluid Body Fluid Culture - Final NO GROWTH Complete 04/30/18 04:00 Wound Gram Stain - Final Complete 04/30/18 04:00 Wound Culture - Final Proteus Mirabilis Staphylococcus Aureus - Mrsa Complete 05/06/18 15:00 Bronchial Washings Not Specified Gram Stain - Final Complete 05/06/18 15:00 Bronchial Aspirate Culture - Final Mariah Albicans Mariah Dubliniensis Complete 05/04/18 05:00 Stool Clostridium difficile Toxin Assay - Final Complete 04/29/18 17:00 Rectum VRE Culture - Final Enterococcus Faecalis - Vre Complete Laboratory Tests Test 05/18/18 06:05 White Blood Count 6.2 K/UL (4.8-10.8) Red Blood Count 2.28 M/UL (4.70-6.10) L Hemoglobin 7.4 G/DL (14.2-18.0) L Hematocrit 21.9 % (42.0-52.0) L Mean Corpuscular Volume 96 FL (80-99) Mean Corpuscular Hemoglobin 32.6 PG (27.0-31.0) H Mean Corpuscular Hemoglobin Concent 34.0 G/DL (32.0-36.0) Red Cell Distribution Width 18.2 % (11.6-14.8) H Platelet Count 70 K/UL (150-450) L Mean Platelet Volume 5.9 FL (6.5-10.1) L Neutrophils (%) (Auto) % (45.0-75.0) Lymphocytes (%) (Auto) % (20.0-45.0) Monocytes (%) (Auto) % (1.0-10.0) Eosinophils (%) (Auto) % (0.0-3.0) Basophils (%) (Auto) % (0.0-2.0) Differential Total Cells Counted 100 Neutrophils % (Manual) 79 % (45-75) H Lymphocytes % (Manual) 5 % (20-45) L Monocytes % (Manual) 11 % (1-10) H Eosinophils % (Manual) 4 % (0-3) H Basophils % (Manual) 0 % (0-2) Band Neutrophils 1 % (0-8) Platelet Estimate Decreased L Platelet Morphology Normal Hypochromasia 1+ Anisocytosis 2+ Macrocytosis 1+ Sodium Level 133 MMOL/L (136-145) L Potassium Level 3.8 MMOL/L (3.5-5.1) Chloride Level 101 MMOL/L (98-107) Carbon Dioxide Level 27 MMOL/L (21-32) Anion Gap 5 mmol/L (5-15) Blood Urea Nitrogen 12 mg/dL (7-18) Creatinine 1.4 MG/DL (0.55-1.30) H Estimat Glomerular Filtration Rate > 60 mL/min (>60) Glucose Level 123 MG/DL (74-106) H Hemoglobin A1c 3.8 % (4.3-6.0) L Calcium Level 7.8 MG/DL (8.5-10.1) L Phosphorus Level 2.7 MG/DL (2.5-4.9) Magnesium Level 1.3 MG/DL (1.8-2.4) L Total Bilirubin 4.9 MG/DL (0.2-1.0) H Direct Bilirubin 2.1 MG/DL (0.0-0.3) H Aspartate Amino Transf (AST/SGOT) 35 U/L (15-37) Alanine Aminotransferase (ALT/SGPT) 27 U/L (12-78) Alkaline Phosphatase 118 U/L (46-116) H Total Protein 6.7 G/DL (6.4-8.2) Albumin 1.7 G/DL (3.4-5.0) L Globulin 5.0 g/dL Albumin/Globulin Ratio 0.3 (1.0-2.7) L Current Medications Medications (Trade) Dose Ordered Sig/Ry Route PRN Reason Start Time Stop Time Status Last Admin Dose Admin Chlorhexidine Gluconate (Fatemeh-Hex 2%) 1 applic DAILY@1999 TOPIC 05/13/18 20:00 06/09/18 19:59 05/17/18 20:24 Lactulose (Cephulac) 40 gm THREE TIMES A DAY ORAL 05/17/18 13:00 05/30/18 12:59 Magnesium Oxide (Mag-Ox 400mg) 400 mg THREE TIMES A DAY ORAL 05/18/18 18:00 06/17/18 17:59 Midodrine (Pro-Amatine) 2.5 mg THREE TIMES A DAY ORAL 05/17/18 13:00 06/16/18 12:59 05/18/18 12:26 Ondansetron HCl (Zofran) 4 mg Q6H PRN IVP Nausea & Vomiting 05/13/18 01:30 06/09/18 01:29 05/13/18 16:35 Pantoprazole (Protonix) 40 mg EVERY 12 HOURS ORAL 05/16/18 21:00 06/15/18 20:59 05/18/18 08:28 Pentoxifylline (TRENtal) 400 mg THREE TIMES A DAY ORAL 05/13/18 09:00 05/31/18 08:59 05/18/18 12:27 Prochlorperazine (Compazine) 10 mg Q6H PRN IVP Nausea & Vomiting 05/16/18 15:15 06/15/18 15:14 05/16/18 18:14 Trazodone HCl (Desyrel) 50 mg Q8H PRN ORAL INSOMNIA 05/13/18 20:15 06/12/18 20:14 05/16/18 00:57 Doris Ramos MD May 18, 2018 16:08
--- NOTE | 2018-05-18 16:18 | General Progress Note ---
Assessment/Plan Status: stable Assessment/Plan Septic shock due to Providencia bacteremia - PICC placed and started back on IV antibiotics, now s/p vanco and zosyn, changed to zyvox, cipro and diflucan x 24 hrs per ID Acute upper GI bleed w/ hematemesis - underwent EGD 05/10/18 which showed no bleeding varices but hemorrhagic gastritis, s/p epinephrine injection, cont PPI , transfuse for hgb<7 or active bleeding. Hgb 7.5, ctm Acute hypoxic respiratory failure - stable respiratory status. Decompensated alcoholic cirrhosis c/b ascites and hepatic encephalopathy - s/p therapeutic paracentesis this admission, continue rifaximin and lactulose. 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 Coagulopathy - 2/2 cirrhosis, ctm LE ulcerations - surgery following for wound care, no evidence of cellulitis Hypoglycemia - likely in setting of liver failure, ctm Diarrhea - neg stool C. diff Deconditioning - PT/OT Dispo [facility] and needs to be independent on d/c. Will require SNF placement DVT Prophylaxis: SCD Code Status: Full Hospital Classification Declaration: Based on this initial evaluation, and depending on the patient's clinical course, I anticipate that this patient will require hospitalization for 1-2 days for IV abx and close respiratory/ hemodynamic monitoring. Disposition: Once the patient is stable to leave the hospital, I anticipate the patient will likely be discharged to the following environment: home with HH vs SNF I spent 38 minutes on this patient's case, and 21 minutes were dedicated to counseling and/or care coordination. Discussed with patient/family, nursing staff, SW/CM, GI, ID regarding clinical status, treatment course, and disposition planning. Time of note may not reflect time of encounter. Subjective Date patient seen: May 18, 2018 Time patient seen: 16:18 ROS Limited/Unobtainable: No Constitutional: Reports: no symptoms HEENT: Reports: no symptoms Cardiovascular: Reports: no symptoms Respiratory: Reports: no symptoms Gastrointestinal/Abdominal: Reports: no symptoms Genitourinary: Reports: no symptoms Neurologic/Psychiatric: Reports: no symptoms Endocrine: Reports: no symptoms Hematologic/Lymphatic: Reports: no symptoms Allergies: Coded Allergies: No Known Allergies (Unverified , 04/29/18) Subjective No acute o/n events PICC leaking. Pt refusing further IV access Awaiting SNF placement More awake, alert. Denies pain, SOB Nausea improved Per SW/CM, [facility] and needs to be independent on d/c. D/w pt that this is not a safe plan and he will need SNF Objective Last 24 Hour Vital Signs Date Time Temp Pulse Resp B/P (MAP) Pulse Ox O2 Delivery O2 Flow Rate FiO2 05/18/18 12:27 118/73 05/18/18 12:00 97.5 94 19 118/73 (88) 96 97.5 05/18/18 09:45 95 Room Air 21 05/18/18 09:45 Room Air 21 05/18/18 09:00 Room Air Room Air 05/18/18 08:27 115/67 05/18/18 08:00 97.3 105 22 115/67 (83) 94 97.3 05/18/18 04:17 98.6 102 20 123/75 (91) 95 98.6 05/18/18 00:33 99.9 100 20 120/84 (96) 96 99.9 05/17/18 21:50 Room Air Room Air 05/17/18 20:00 98.3 107 19 113/73 (86) 96 98.3 05/17/18 19:50 Room Air 21 05/17/18 19:49 96 Room Air 21 05/17/18 17:45 124/65 Intake and Output 05/17/18 05/18/18 19:00 07:00 Intake Total 630 ml 240 ml Output Total 450 ml Balance 630 ml -210 ml Intake Oral 480 ml 240 ml IV Total 150 ml Output Urine Total 450 ml # Bowel Movements 4 Laboratory Tests 05/18/18 06:05: White Blood Count 6.2, Red Blood Count 2.28L, Hemoglobin 7.4L, Hematocrit 21.9L , Mean Corpuscular Volume 96, Mean Corpuscular Hemoglobin 32.6H, Mean Corpuscular Hemoglobin Concent 34.0, Red Cell Distribution Width 18.2H, Platelet Count 70L, Mean Platelet Volume 5.9L, Neutrophils (%) (Auto) , Lymphocytes (%) (Auto) , Monocytes (%) (Auto) , Eosinophils (%) (Auto) , Basophils (%) (Auto) , Differential Total Cells Counted 100, Neutrophils % ( Manual) 79H, Lymphocytes % (Manual) 5L, Monocytes % (Manual) 11H, Eosinophils % (Manual) 4H, Basophils % (Manual) 0, Band Neutrophils 1, Platelet Estimate DecreasedL, Platelet Morphology Normal, Hypochromasia 1+, Anisocytosis 2+, Macrocytosis 1+, Sodium Level 133L, Potassium Level 3.8, Chloride Level 101, Carbon Dioxide Level 27, Anion Gap 5, Blood Urea Nitrogen 12, Creatinine 1.4H, Estimat Glomerular Filtration Rate > 60, Glucose Level 123H, Hemoglobin A1c 3.8L , Calcium Level 7.8L, Phosphorus Level 2.7, Magnesium Level 1.3L, Total Bilirubin 4.9H, Direct Bilirubin 2.1H, Aspartate Amino Transf (AST/SGOT) 35, Alanine Aminotransferase (ALT/SGPT) 27, Alkaline Phosphatase 118H, Total Protein 6.7, Albumin 1.7L, Globulin 5.0, Albumin/Globulin Ratio 0.3L Height (Feet): 5 Height (Inches): 9.00 Weight (Pounds): 326 Objective General: alert, cooperative, no distress, appears stated age Head: normocephalic, without obvious abnormality, atraumatic Eyes: conjunctivae/corneas clear. PERRL, EOM's intact Throat: lips, mucosa, and tongue normal. MMM Neck: supple, symmetrical, trachea midline, and no JVD Lungs: clear to auscultation bilaterally Heart: regular rate and rhythm, S1, S2 normal, no murmur, click, rub or gallop Abdomen: soft, non-tender, some abd distention, no discrete fluid wave, bowel sounds normal Extremities: extremities normal, atraumatic, no cyanosis, +BLE edema Pulses: 2+ and symmetric Skin: multiple chronic venous stasis ulcers Neurologic: grossly normal, no focal deficits Gadiel Tam M.D. May 18, 2018 16:18
[2018-05-18] MEDS: Magnesium Oxide 400mg tab ORAL SCH (17:07)
[2018-05-18 20:00] VITALS: BP 114/77
[2018-05-18] MEDS: Dyna-Hex 2% Top Sol 2oz TOPIC SCH (20:00)
[2018-05-19] VITALS: BP 111/60
[2018-05-19 04:00] VITALS: BP_SYST 101; BP_SYST 99; BP_DIAS 50; BP_DIAS 54
[2018-05-19 05:59] LABS: HEMATOCRIT 22.5 % (42.0-52.0); HEMOGLOBIN 7.6 G/DL (14.2-18.0); MEAN CORPUSCULAR VOLUME 97 FL (80-99); PLATELET COUNT 75 K/UL (150-450); RED BLOOD COUNT 2.32 M/UL (4.70-6.10); WHITE BLOOD COUNT 6.6 K/UL (4.8-10.8)
[2018-05-19 06:23] LABS: ALANINE AMINOTRANSFERASE 27 U/L (12-78); ALBUMIN 1.7 G/DL (3.4-5.0); ALBUMIN/GLOBULIN RATIO 0.3 (1.0-2.7); ALKALINE PHOSPHATASE 112 U/L (46-116); ANION GAP 6 mmol/L (5-15); ASPARTATE AMINO TRANSFERASE 37 U/L (15-37); BILIRUBIN,TOTAL 5.7 MG/DL (0.2-1.0); BLOOD UREA NITROGEN 12 mg/dL (7-18); CALCIUM 8.2 MG/DL (8.5-10.1); CARBON DIOXIDE 26 MMOL/L (21-32); CHLORIDE 100 MMOL/L (98-107); CREATININE 1.4 MG/DL (0.55-1.30); PHOSPHORUS 2.6 MG/DL (2.5-4.9); POTASSIUM 3.8 MMOL/L (3.5-5.1); SODIUM 132 MMOL/L (136-145)
[2018-05-19 06:39] LABS: BILIRUBIN,DIRECT 2.2 MG/DL (0.0-0.3)
--- NOTE | 2018-05-19 07:20 | General Progress Note ---
Assessment/Plan Assessment/Plan #. Thrombocytopenia, potentially secondary to septic shock and myelosuppression , severe sepsis, RLE cellulitis in addition to PNA, closely monitor, peripheral smear has been reviewed. The patient continues to have lactic acidosis, improved at this time and, in addition, imaging reviewed. 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 Coagulopathy with portal hypertension, cirrhosis of liver, large volume ascites, requires paracentesis and requires vitamin K --> vit K prn basis --> on abx, vanc others as per ID --> as per ID, appreciate their recs #. Leukocytosis, likely secondary to underlying infection, ulceration seen by surgery, potentially related to underlying sepsis versus other causes such as SBP; but again has been seen by GI team --> s/p paracentesis and prn in the future --> on abx for right lower ext ulceration #. AGNIESZKA, on IV fluids as needed #. Acute encephalopathy --> now b calista #. Septic shock. now has improved. --> s/p abx, continues #. SNF placement once found ==> is homeless Greatly appreciate consultation JP MCCLOUD and RN Subjective Constitutional: Denies: no symptoms, chills, diaphoresis, fever, malaise, weakness, other HEENT: Denies: no symptoms, eye pain, blurred vision, tearing, double vision, ear pain, ear discharge, nose pain, nose congestion, throat pain, throat swelling, mouth pain, mouth swelling, other Cardiovascular: Denies: no symptoms, chest pain, edema, irregular heart rate, lightheadedness, palpitations, syncope, other Respiratory: Denies: no symptoms, cough, orthopnea, shortness of breath, SOB with excertion, SOB at rest, sputum, stridor, wheezing, other Gastrointestinal/Abdominal: Denies: no symptoms, abdomen distended, abdominal pain, black stools, tarry stools, blood in stool, constipated, diarrhea, difficulty swallowing, nausea, poor appetite, poor fluid intake, rectal bleeding , vomiting, other Genitourinary: Denies: no symptoms, burning, discharge, frequency, flank pain, hematuria, incontinence, pain, urgency, other Neurologic/Psychiatric: Denies: no symptoms, anxiety, depressed, emotional problems, headache, numbness, paresthesia, pre-existing deficit, seizure, tingling, tremors, weakness, other Endocrine: Denies: no symptoms, excessive sweating, flushing, intolerance to cold, intolerance to heat, increased hunger, increased thirst, increased urine, unexplained weight gain, unexplained weight loss, other Hematologic/Lymphatic: Denies: no symptoms, anemia, easy bleeding, easy bruising, other Allergies: Coded Allergies: No Known Allergies (Unverified , 04/29/18) Subjective labs reviewed, no blood transfusion required today, remains sleepy Objective Last 24 Hour Vital Signs Date Time Temp Pulse Resp B/P (MAP) Pulse Ox O2 Delivery O2 Flow Rate FiO2 05/19/18 04:00 97.4 101 24 101/54 (70) 99 97.4 05/19/18 00:00 97.3 103 20 111/60 (77) 96 97.3 05/18/18 21:00 Room Air Room Air 05/18/18 20:00 95 Room Air 21 05/18/18 20:00 97.7 102 20 114/77 (89) 96 97.7 05/18/18 20:00 Room Air 21 05/18/18 17:07 127/74 05/18/18 16:00 97.3 102 20 127/74 (91) 95 97.3 05/18/18 12:27 118/73 05/18/18 12:00 97.5 94 19 118/73 (88) 96 97.5 05/18/18 09:45 95 Room Air 21 05/18/18 09:45 Room Air 21 05/18/18 09:00 Room Air Room Air 05/18/18 08:27 115/67 05/18/18 08:00 97.3 105 22 115/67 (83) 94 97.3 Intake and Output 05/18/18 05/19/18 19:00 07:00 Intake Total 480 ml Output Total 50 ml 150 ml Balance 430 ml -150 ml Intake Oral 480 ml Output Urine Total 50 ml 150 ml # Voids 1 Laboratory Tests 05/19/18 05:05: White Blood Count 6.6, Red Blood Count 2.32L, Hemoglobin 7.6L, Hematocrit 22.5L , Mean Corpuscular Volume 97, Mean Corpuscular Hemoglobin 32.7H, Mean Corpuscular Hemoglobin Concent 33.7, Red Cell Distribution Width 18.0H, Platelet Count 75L, Mean Platelet Volume 5.7L, Neutrophils (%) (Auto) , Lymphocytes (%) (Auto) , Monocytes (%) (Auto) , Eosinophils (%) (Auto) , Basophils (%) (Auto) , Neutrophils % (Manual) [Pending], Lymphocytes % (Manual) [Pending], Platelet Estimate [Pending], Platelet Morphology [Pending], Sodium Level 132L, Potassium Level 3.8, Chloride Level 100, Carbon Dioxide Level 26, Anion Gap 6, Blood Urea Nitrogen 12, Creatinine 1.4H, Estimat Glomerular Filtration Rate > 60, Glucose Level 125H, Uric Acid 3.3, Calcium Level 8.2L, Phosphorus Level 2.6, Magnesium Level 1.4L, Total Bilirubin 5.7H, Direct Bilirubin 2.2H, Aspartate Amino Transf (AST/SGOT) 37, Alanine Aminotransferase ( ALT/SGPT) 27, Alkaline Phosphatase 112, Total Protein 6.7, Albumin 1.7L, Globulin 5.0, Albumin/Globulin Ratio 0.3L, Random Vancomycin Level 7.8 Height (Feet): 5 Height (Inches): 9.00 Weight (Pounds): 323 General Appearance: lethargic EENT: TMs normal Neck: non-tender Cardiovascular: regular rhythm Respiratory/Chest: normal breath sounds Abdomen: no organomegaly Extremities: non-tender, other - bilateral edema ++2 Neurologic: alert Skin: warm/dry Eric Irizarry MD May 19, 2018 07:20
[2018-05-19 08:00] VITALS: BP 104/56
[2018-05-19] MEDS: Magnesium Oxide 400mg tab ORAL SCH ×3 (08:48→17:14)
[2018-05-19] MEDS: Lactulose 20gm/30ml UDC ORAL SCH ×3 (08:49→17:11)
--- NOTE | 2018-05-19 10:07 | General Progress Note ---
Assessment/Plan Assessment/Plan Assessment - UGIB - gastritis - N/V - Cirrhosis - alcoholic - portal HTN - no varicies on current EGD - presumed EtOH hepatitis - some recovery in labs noted - coagulopathy - ascites - s/p tap - sepsis, no SBP on paracentesis fluid - Resp failure - AMS, likely hepatic encephalopathy - hypoglycemia - guarded Recommendation: - renal f/u - continue lactulose - trantal x 30 days (until 05/31/17) - follow labs - broad abx - PPI Subjective Allergies: Coded Allergies: No Known Allergies (Unverified , 04/29/18) Subjective Above noted feels OK no new symptoms Objective Last 24 Hour Vital Signs Date Time Temp Pulse Resp B/P (MAP) Pulse Ox O2 Delivery O2 Flow Rate FiO2 05/19/18 09:00 Room Air Room Air 05/19/18 08:48 104/56 05/19/18 08:10 97 Room Air 21 05/19/18 08:10 Room Air 21 05/19/18 08:00 98.0 99 22 104/56 (72) 98 98.0 05/19/18 04:00 97.4 101 24 101/54 (70) 99 97.4 05/19/18 00:00 97.3 103 20 111/60 (77) 96 97.3 05/18/18 21:00 Room Air Room Air 05/18/18 20:00 95 Room Air 21 05/18/18 20:00 97.7 102 20 114/77 (89) 96 97.7 05/18/18 20:00 Room Air 21 05/18/18 17:07 127/74 05/18/18 16:00 97.3 102 20 127/74 (91) 95 97.3 05/18/18 12:27 118/73 05/18/18 12:00 97.5 94 19 118/73 (88) 96 97.5 Intake and Output 05/18/18 05/19/18 19:00 07:00 Intake Total 480 ml Output Total 50 ml 150 ml Balance 430 ml -150 ml Intake Oral 480 ml Output Urine Total 50 ml 150 ml # Voids 1 Laboratory Tests 05/19/18 05:05: White Blood Count 6.6, Red Blood Count 2.32L, Hemoglobin 7.6L, Hematocrit 22.5L , Mean Corpuscular Volume 97, Mean Corpuscular Hemoglobin 32.7H, Mean Corpuscular Hemoglobin Concent 33.7, Red Cell Distribution Width 18.0H, Platelet Count 75L, Mean Platelet Volume 5.7L, Neutrophils (%) (Auto) , Lymphocytes (%) (Auto) , Monocytes (%) (Auto) , Eosinophils (%) (Auto) , Basophils (%) (Auto) , Differential Total Cells Counted 100, Neutrophils % ( Manual) 86H, Lymphocytes % (Manual) 6L, Monocytes % (Manual) 7, Eosinophils % ( Manual) 1, Basophils % (Manual) 0, Band Neutrophils 0, Nucleated Red Blood Cells , Platelet Estimate DecreasedL, Platelet Morphology Normal, Red Blood Cell Morphology Normal, Anisocytosis 2+, Sodium Level 132L, Potassium Level 3.8 , Chloride Level 100, Carbon Dioxide Level 26, Anion Gap 6, Blood Urea Nitrogen 12, Creatinine 1.4H, Estimat Glomerular Filtration Rate > 60, Glucose Level 125H , Uric Acid 3.3, Calcium Level 8.2L, Phosphorus Level 2.6, Magnesium Level 1.4L , Total Bilirubin 5.7H, Direct Bilirubin 2.2H, Aspartate Amino Transf (AST/SGOT ) 37, Alanine Aminotransferase (ALT/SGPT) 27, Alkaline Phosphatase 112, Total Protein 6.7, Albumin 1.7L, Globulin 5.0, Albumin/Globulin Ratio 0.3L, Random Vancomycin Level 7.8 Height (Feet): 5 Height (Inches): 9.00 Weight (Pounds): 323 Objective WDWN WM NCAT supple CTA RRR Soft / Obese trace edema sedated Pierre Suggs MD May 19, 2018 10:07
--- NOTE | 2018-05-19 11:06 | General Progress Note ---
Assessment/Plan Status: stable, progressing Assessment/Plan [place] [facility] [place] seroquel prn provided ro/st Subjective Date patient seen: May 19, 2018 Neurologic/Psychiatric: Reports: anxiety, depressed, emotional problems Allergies: Coded Allergies: No Known Allergies (Unverified , 04/29/18) Subjective the pt is stable Objective Last 24 Hour Vital Signs Date Time Temp Pulse Resp B/P (MAP) Pulse Ox O2 Delivery O2 Flow Rate FiO2 05/19/18 09:00 Room Air Room Air 05/19/18 08:48 104/56 05/19/18 08:10 97 Room Air 21 05/19/18 08:10 Room Air 21 05/19/18 08:00 98.0 99 22 104/56 (72) 98 98.0 05/19/18 04:00 97.4 101 24 101/54 (70) 99 97.4 05/19/18 00:00 97.3 103 20 111/60 (77) 96 97.3 05/18/18 21:00 Room Air Room Air 05/18/18 20:00 95 Room Air 21 05/18/18 20:00 97.7 102 20 114/77 (89) 96 97.7 05/18/18 20:00 Room Air 21 05/18/18 17:07 127/74 05/18/18 16:00 97.3 102 20 127/74 (91) 95 97.3 05/18/18 12:27 118/73 05/18/18 12:00 97.5 94 19 118/73 (88) 96 97.5 Intake and Output 05/18/18 05/19/18 19:00 07:00 Intake Total 480 ml Output Total 50 ml 150 ml Balance 430 ml -150 ml Intake Oral 480 ml Output Urine Total 50 ml 150 ml # Voids 1 Laboratory Tests 05/19/18 05:05: White Blood Count 6.6, Red Blood Count 2.32L, Hemoglobin 7.6L, Hematocrit 22.5L , Mean Corpuscular Volume 97, Mean Corpuscular Hemoglobin 32.7H, Mean Corpuscular Hemoglobin Concent 33.7, Red Cell Distribution Width 18.0H, Platelet Count 75L, Mean Platelet Volume 5.7L, Neutrophils (%) (Auto) , Lymphocytes (%) (Auto) , Monocytes (%) (Auto) , Eosinophils (%) (Auto) , Basophils (%) (Auto) , Differential Total Cells Counted 100, Neutrophils % ( Manual) 86H, Lymphocytes % (Manual) 6L, Monocytes % (Manual) 7, Eosinophils % ( Manual) 1, Basophils % (Manual) 0, Band Neutrophils 0, Nucleated Red Blood Cells , Platelet Estimate DecreasedL, Platelet Morphology Normal, Red Blood Cell Morphology Normal, Anisocytosis 2+, Sodium Level 132L, Potassium Level 3.8 , Chloride Level 100, Carbon Dioxide Level 26, Anion Gap 6, Blood Urea Nitrogen 12, Creatinine 1.4H, Estimat Glomerular Filtration Rate > 60, Glucose Level 125H , Uric Acid 3.3, Calcium Level 8.2L, Phosphorus Level 2.6, Magnesium Level 1.4L , Total Bilirubin 5.7H, Direct Bilirubin 2.2H, Aspartate Amino Transf (AST/SGOT ) 37, Alanine Aminotransferase (ALT/SGPT) 27, Alkaline Phosphatase 112, Total Protein 6.7, Albumin 1.7L, Globulin 5.0, Albumin/Globulin Ratio 0.3L, Random Vancomycin Level 7.8 Height (Feet): 5 Height (Inches): 9.00 Weight (Pounds): 323 General Appearance: no apparent distress, alert, confused Chava Rivas MD May 19, 2018 11:06
[2018-05-19 12:00] VITALS: BP 122/73
[2018-05-19 12:44] LABS: INR 2.2 (0.9-1.1)
--- NOTE | 2018-05-19 13:53 | Nephrology Progress Note ---
Assessment/Plan Problem List: (1) Acute kidney failure (2) Acute encephalopathy (3) Cirrhosis of liver (4) Anemia Assessment Septic shock due to Providencia bacteremia - PICC placed and started back on IV antibiotics--on vanco, zosyn, difucan x 5 days per ID--currently day 3 Acute upper GI bleed w/ hematemesis - underwent EGD 05/10/18 which showed no bleeding varices but hemorrhagic gastritis, s/p epinephrine injection, cont PPI , transfuse for hgb<7 or active bleeding. Hgb stable Acute hypoxic respiratory failure - stable respiratory status. Decompensated alcoholic cirrhosis c/b ascites and hepatic encephalopathy - s/p therapeutic paracentesis this admission, continue rifaximin and lactulose. AGNIESZKA due to ATN from sepsis and hypotension - Acute metabolic encephalopathy - resolving, Thrombocytopenia - multifactorial f Coagulopathy - 2/2 cirrhosis, ctm LE ulcerations - surgery following for wound care, no evidence of cellulitis Hypoglycemia - likely in setting of liver failure, ctm Diarrhea - Deconditioning - PT/OT eval, likely needs SNF. SW/Cm consulted. Pt hesitant to d /c to SNF, prefers to go home. Home health ordered Code Status: Full Plan agreed with IV line so be transfused and get IV mag monitor vanco level increase lactulose dose midodrine Subjective ROS Limited/Unobtainable: No Constitutional: Reports: malaise, weakness Objective Objective Last 24 Hour Vital Signs Date Time Temp Pulse Resp B/P (MAP) Pulse Ox O2 Delivery O2 Flow Rate FiO2 05/19/18 12:46 122/73 05/19/18 12:00 97.3 100 21 122/73 (89) 95 97.3 05/19/18 09:00 Room Air Room Air 05/19/18 08:48 104/56 05/19/18 08:10 97 Room Air 21 05/19/18 08:10 Room Air 21 05/19/18 08:00 98.0 99 22 104/56 (72) 98 98.0 05/19/18 04:00 97.4 101 24 101/54 (70) 99 97.4 05/19/18 00:00 97.3 103 20 111/60 (77) 96 97.3 05/18/18 21:00 Room Air Room Air 05/18/18 20:00 95 Room Air 21 05/18/18 20:00 97.7 102 20 114/77 (89) 96 97.7 05/18/18 20:00 Room Air 21 05/18/18 17:07 127/74 05/18/18 16:00 97.3 102 20 127/74 (91) 95 97.3 Intake and Output 05/18/18 05/19/18 19:00 07:00 Intake Total 480 ml Output Total 50 ml 150 ml Balance 430 ml -150 ml Intake Oral 480 ml Output Urine Total 50 ml 150 ml # Voids 1 Laboratory Tests 05/19/18 05:05: White Blood Count 6.6, Red Blood Count 2.32L, Hemoglobin 7.6L, Hematocrit 22.5L , Mean Corpuscular Volume 97, Mean Corpuscular Hemoglobin 32.7H, Mean Corpuscular Hemoglobin Concent 33.7, Red Cell Distribution Width 18.0H, Platelet Count 75L, Mean Platelet Volume 5.7L, Neutrophils (%) (Auto) , Lymphocytes (%) (Auto) , Monocytes (%) (Auto) , Eosinophils (%) (Auto) , Basophils (%) (Auto) , Differential Total Cells Counted 100, Neutrophils % ( Manual) 86H, Lymphocytes % (Manual) 6L, Monocytes % (Manual) 7, Eosinophils % ( Manual) 1, Basophils % (Manual) 0, Band Neutrophils 0, Nucleated Red Blood Cells , Platelet Estimate DecreasedL, Platelet Morphology Normal, Red Blood Cell Morphology Normal, Anisocytosis 2+, Sodium Level 132L, Potassium Level 3.8 , Chloride Level 100, Carbon Dioxide Level 26, Anion Gap 6, Blood Urea Nitrogen 12, Creatinine 1.4H, Estimat Glomerular Filtration Rate > 60, Glucose Level 125H , Uric Acid 3.3, Calcium Level 8.2L, Phosphorus Level 2.6, Magnesium Level 1.4L , Total Bilirubin 5.7H, Direct Bilirubin 2.2H, Aspartate Amino Transf (AST/SGOT ) 37, Alanine Aminotransferase (ALT/SGPT) 27, Alkaline Phosphatase 112, Total Protein 6.7, Albumin 1.7L, Globulin 5.0, Albumin/Globulin Ratio 0.3L, Random Vancomycin Level 7.8 05/19/18 12:20: Prothrombin Time 22.0H, Prothromb Time International Ratio 2.2H, Activated Partial Thromboplast Time 48H Height (Feet): 5 Height (Inches): 9.00 Weight (Pounds): 323 General Appearance: no apparent distress, lethargic Cardiovascular: tachycardia Respiratory/Chest: decreased breath sounds Abdomen: distended Ari Ortega MD May 19, 2018 13:53
--- NOTE | 2018-05-19 14:43 | General Progress Note ---
Assessment/Plan Status: stable Assessment/Plan Septic shock due to Providencia bacteremia - PICC placed and started back on IV antibiotics, now s/p vanco and zosyn, s/p zyvox, cipro and diflucan Acute upper GI bleed w/ hematemesis - underwent EGD 05/10/18 which showed no bleeding varices but hemorrhagic gastritis, s/p epinephrine injection, cont PPI , transfuse for hgb<7 or active bleeding. Hgb 7.6 --> transfuse 2U pRBCs Acute hypoxic respiratory failure - stable respiratory status. Decompensated alcoholic cirrhosis c/b ascites and hepatic encephalopathy - s/p therapeutic paracentesis this admission, continue rifaximin and lactulose. 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 Coagulopathy - 2/2 cirrhosis, ctm LE ulcerations - surgery following for wound care, no evidence of cellulitis Hypoglycemia - likely in setting of liver failure, ctm Diarrhea - neg stool C. diff Deconditioning - PT/OT Dispo - pt [facility] and needs to be independent on d/c. Will require SNF placement DVT Prophylaxis: SCD Code Status: Full Hospital Classification Declaration: Based on this initial evaluation, and depending on the patient's clinical course, I anticipate that this patient will require hospitalization for 1-2 days for IV abx and close respiratory/ hemodynamic monitoring. Disposition: Once the patient is stable to leave the hospital, I anticipate the patient will likely be discharged to the following environment: home with HH vs SNF I spent 38 minutes on this patient's case, and 21 minutes were dedicated to counseling and/or care coordination. Discussed with patient/family, nursing staff, SW/CM, GI, ID regarding clinical status, treatment course, and disposition planning. Time of note may not reflect time of encounter. Subjective Date patient seen: May 19, 2018 Time patient seen: 14:43 ROS Limited/Unobtainable: No Constitutional: Reports: no symptoms HEENT: Reports: no symptoms Cardiovascular: Reports: no symptoms Respiratory: Reports: no symptoms Gastrointestinal/Abdominal: Reports: abdomen distended Genitourinary: Reports: no symptoms Neurologic/Psychiatric: Reports: no symptoms Endocrine: Reports: no symptoms Hematologic/Lymphatic: Reports: no symptoms Allergies: Coded Allergies: No Known Allergies (Unverified , 04/29/18) Subjective No acute o/n events SCr stable at 1.4 Hgb 7.6 Awake, alert Denies pain, SOB Nausea improved Per SW/CM, pt from [facility] and needs to be independent on d/c. D/w pt that this is not a safe plan and he will need SNF Working w/ PT Objective Last 24 Hour Vital Signs Date Time Temp Pulse Resp B/P (MAP) Pulse Ox O2 Delivery O2 Flow Rate FiO2 05/19/18 12:46 122/73 05/19/18 12:00 97.3 100 21 122/73 (89) 95 97.3 05/19/18 09:00 Room Air Room Air 05/19/18 08:48 104/56 05/19/18 08:10 97 Room Air 21 05/19/18 08:10 Room Air 21 05/19/18 08:00 98.0 99 22 104/56 (72) 98 98.0 05/19/18 04:00 97.4 101 24 101/54 (70) 99 97.4 05/19/18 00:00 97.3 103 20 111/60 (77) 96 97.3 05/18/18 21:00 Room Air Room Air 05/18/18 20:00 95 Room Air 21 05/18/18 20:00 97.7 102 20 114/77 (89) 96 97.7 05/18/18 20:00 Room Air 21 05/18/18 17:07 127/74 05/18/18 16:00 97.3 102 20 127/74 (91) 95 97.3 Intake and Output 05/18/18 05/19/18 19:00 07:00 Intake Total 480 ml Output Total 50 ml 150 ml Balance 430 ml -150 ml Intake Oral 480 ml Output Urine Total 50 ml 150 ml # Voids 1 Laboratory Tests 05/19/18 05:05: White Blood Count 6.6, Red Blood Count 2.32L, Hemoglobin 7.6L, Hematocrit 22.5L , Mean Corpuscular Volume 97, Mean Corpuscular Hemoglobin 32.7H, Mean Corpuscular Hemoglobin Concent 33.7, Red Cell Distribution Width 18.0H, Platelet Count 75L, Mean Platelet Volume 5.7L, Neutrophils (%) (Auto) , Lymphocytes (%) (Auto) , Monocytes (%) (Auto) , Eosinophils (%) (Auto) , Basophils (%) (Auto) , Differential Total Cells Counted 100, Neutrophils % ( Manual) 86H, Lymphocytes % (Manual) 6L, Monocytes % (Manual) 7, Eosinophils % ( Manual) 1, Basophils % (Manual) 0, Band Neutrophils 0, Nucleated Red Blood Cells , Platelet Estimate DecreasedL, Platelet Morphology Normal, Red Blood Cell Morphology Normal, Anisocytosis 2+, Sodium Level 132L, Potassium Level 3.8 , Chloride Level 100, Carbon Dioxide Level 26, Anion Gap 6, Blood Urea Nitrogen 12, Creatinine 1.4H, Estimat Glomerular Filtration Rate > 60, Glucose Level 125H , Uric Acid 3.3, Calcium Level 8.2L, Phosphorus Level 2.6, Magnesium Level 1.4L , Total Bilirubin 5.7H, Direct Bilirubin 2.2H, Aspartate Amino Transf (AST/SGOT ) 37, Alanine Aminotransferase (ALT/SGPT) 27, Alkaline Phosphatase 112, Total Protein 6.7, Albumin 1.7L, Globulin 5.0, Albumin/Globulin Ratio 0.3L, Random Vancomycin Level 7.8 05/19/18 12:20: Prothrombin Time 22.0H, Prothromb Time International Ratio 2.2H, Activated Partial Thromboplast Time 48H Height (Feet): 5 Height (Inches): 9.00 Weight (Pounds): 323 Objective General: alert, cooperative, no distress, appears stated age Head: normocephalic, without obvious abnormality, atraumatic Eyes: conjunctivae/corneas clear. PERRL, EOM's intact Throat: lips, mucosa, and tongue normal. MMM Neck: supple, symmetrical, trachea midline, and no JVD Lungs: clear to auscultation bilaterally Heart: regular rate and rhythm, S1, S2 normal, no murmur, click, rub or gallop Abdomen: soft, non-tender, some abd distention, no discrete fluid wave, bowel sounds normal Extremities: extremities normal, atraumatic, no cyanosis, +BLE edema Pulses: 2+ and symmetric Skin: multiple chronic venous stasis ulcers Neurologic: grossly normal, no focal deficits Gadiel Tam M.D. May 19, 2018 14:43
[2018-05-19 16:00] VITALS: BP 120/77
[2018-05-19 20:00] VITALS: BP 122/78
[2018-05-19] MEDS: Dyna-Hex 2% Top Sol 2oz TOPIC SCH (20:01)
[2018-05-20] VITALS: BP 128/69
[2018-05-20 04:00] VITALS: BP 104/56
[2018-05-20 05:29] LABS: HEMATOCRIT 25.9 % (42.0-52.0); HEMOGLOBIN 9.1 G/DL (14.2-18.0); MEAN CORPUSCULAR VOLUME 95 FL (80-99); PLATELET COUNT 65 K/UL (150-450); RED BLOOD COUNT 2.73 M/UL (4.70-6.10); RED CELL DISTRIBUTION WIDTH 16.8 % (11.6-14.8)
[2018-05-20 05:35] LABS: AMMONIA 56 umol/L (11-32)
[2018-05-20 06:07] LABS: ALANINE AMINOTRANSFERASE 28 U/L (12-78); ALBUMIN 1.7 G/DL (3.4-5.0); ALBUMIN/GLOBULIN RATIO 0.3 (1.0-2.7); ALKALINE PHOSPHATASE 113 U/L (46-116); ANION GAP 5 mmol/L (5-15); ASPARTATE AMINO TRANSFERASE 40 U/L (15-37); BILIRUBIN,TOTAL 7.1 MG/DL (0.2-1.0); BLOOD UREA NITROGEN 12 mg/dL (7-18); CALCIUM 8.3 MG/DL (8.5-10.1); CARBON DIOXIDE 26 MMOL/L (21-32); CHLORIDE 100 MMOL/L (98-107); CREATININE 1.4 MG/DL (0.55-1.30); PHOSPHORUS 2.9 MG/DL (2.5-4.9); POTASSIUM 3.8 MMOL/L (3.5-5.1); SODIUM 131 MMOL/L (136-145)
[2018-05-20 06:13] LABS: BILIRUBIN,DIRECT 2.5 MG/DL (0.0-0.3)
--- NOTE | 2018-05-20 06:42 | General Progress Note ---
Assessment/Plan Assessment/Plan #. Thrombocytopenia, potentially secondary to septic shock and myelosuppression , severe sepsis, RLE cellulitis in addition to PNA, closely monitor, peripheral smear has been reviewed. The patient continues to have lactic acidosis, improved at this time and, in addition, imaging reviewed. 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 Coagulopathy with portal hypertension, cirrhosis of liver, large volume ascites, requires paracentesis and requires vitamin K --> vit K prn basis --> on abx, vanc others as per ID --> as per ID, appreciate their recs #. Leukocytosis, likely secondary to underlying infection, ulceration seen by surgery, potentially related to underlying sepsis versus other causes such as SBP; but again has been seen by GI team --> s/p paracentesis and prn in the future --> on abx for right lower ext ulceration #. AGNIESZKA, on IV fluids as needed #. Acute encephalopathy --> now better #. Septic shock. now has improved. --> s/p abx, continues #. SNF placement once found ==> is homeless Greatly appreciate consultation JP MCCLOUD and RN Subjective Constitutional: Denies: no symptoms, chills, diaphoresis, fever, malaise, weakness, other HEENT: Denies: no symptoms, eye pain, blurred vision, tearing, double vision, ear pain, ear discharge, nose pain, nose congestion, throat pain, throat swelling, mouth pain, mouth swelling, other Cardiovascular: Denies: no symptoms, chest pain, edema, irregular heart rate, lightheadedness, palpitations, syncope, other Respiratory: Denies: no symptoms, cough, orthopnea, shortness of breath, SOB with excertion, SOB at rest, sputum, stridor, wheezing, other Gastrointestinal/Abdominal: Denies: no symptoms, abdomen distended, abdominal pain, black stools, tarry stools, blood in stool, constipated, diarrhea, difficulty swallowing, nausea, poor appetite, poor fluid intake, rectal bleeding , vomiting, other Genitourinary: Denies: no symptoms, burning, discharge, frequency, flank pain, hematuria, incontinence, pain, urgency, other Neurologic/Psychiatric: Denies: no symptoms, anxiety, depressed, emotional problems, headache, numbness, paresthesia, pre-existing deficit, seizure, tingling, tremors, weakness, other Endocrine: Denies: no symptoms, excessive sweating, flushing, intolerance to cold, intolerance to heat, increased hunger, increased thirst, increased urine, unexplained weight gain, unexplained weight loss, other Hematologic/Lymphatic: Denies: no symptoms, anemia, easy bleeding, easy bruising, other Allergies: Coded Allergies: No Known Allergies (Unverified , 04/29/18) Subjective labs reviewed, no blood transfusion required today, given blood last night Objective Last 24 Hour Vital Signs Date Time Temp Pulse Resp B/P (MAP) Pulse Ox O2 Delivery O2 Flow Rate FiO2 05/20/18 04:00 97.4 100 20 104/56 (72) 95 97.4 05/20/18 00:00 97.7 97 20 128/69 (88) 95 97.7 05/19/18 21:00 Room Air Room Air 05/19/18 20:00 97.5 97 20 122/78 (93) 97 97.5 05/19/18 17:14 120/77 05/19/18 16:00 97.1 98 20 120/77 (91) 97 97.1 05/19/18 12:46 122/73 05/19/18 12:00 97.3 100 21 122/73 (89) 95 97.3 05/19/18 09:00 Room Air Room Air 05/19/18 08:48 104/56 05/19/18 08:10 97 Room Air 21 05/19/18 08:10 Room Air 21 05/19/18 08:00 98.0 99 22 104/56 (72) 98 98.0 Intake and Output 05/19/18 05/20/18 19:00 07:00 Intake Total 1000 ml Output Total 600 ml Balance 400 ml Intake Oral 1000 ml Output Urine Total 600 ml # Bowel Movements 3 Laboratory Tests 05/19/18 12:20: Prothrombin Time 22.0H, Prothromb Time International Ratio 2.2H, Activated Partial Thromboplast Time 48H 05/20/18 04:55: White Blood Count 6.0, Red Blood Count 2.73L, Hemoglobin 9.1L, Hematocrit 25.9L , Mean Corpuscular Volume 95, Mean Corpuscular Hemoglobin 33.1H, Mean Corpuscular Hemoglobin Concent 35.0, Red Cell Distribution Width 16.8H, Platelet Count 65L, Mean Platelet Volume 5.8L, Neutrophils (%) (Auto) , Lymphocytes (%) (Auto) , Monocytes (%) (Auto) , Eosinophils (%) (Auto) , Basophils (%) (Auto) , Neutrophils % (Manual) [Pending], Lymphocytes % (Manual) [Pending], Platelet Estimate [Pending], Platelet Morphology [Pending], Sodium Level 131L, Potassium Level 3.8, Chloride Level 100, Carbon Dioxide Level 26, Anion Gap 5, Blood Urea Nitrogen 12, Creatinine 1.4H, Estimat Glomerular Filtration Rate > 60, Glucose Level 117H, Uric Acid 3.5, Calcium Level 8.3L, Phosphorus Level 2.9, Magnesium Level 1.7L, Total Bilirubin 7.1H, Direct Bilirubin 2.5H, Aspartate Amino Transf (AST/SGOT) 40H, Alanine Aminotransferase (ALT/SGPT) 28, Alkaline Phosphatase 113, Ammonia 56H, Total Protein 6.8, Albumin 1.7L, Globulin 5.1, Albumin/Globulin Ratio 0.3L Height (Feet): 5 Height (Inches): 9.00 Weight (Pounds): 325 General Appearance: WD/WN EENT: PERRL/EOMI Neck: supple Cardiovascular: normal rate Respiratory/Chest: lungs clear Abdomen: normal bowel sounds Extremities: normal inspection Edema: no edema noted Leg (L), no edema noted Leg (R) Edema: trace edema Neurologic: alert Eric Irizarry MD May 20, 2018 06:42
[2018-05-20 08:11] VITALS: BP 108/58
[2018-05-20] MEDS: Lactulose 20gm/30ml UDC ORAL SCH ×3 (09:00→17:03)
[2018-05-20] MEDS: Magnesium Oxide 400mg tab ORAL SCH (09:07)
[2018-05-20 11:44] VITALS: BP 119/75
--- NOTE | 2018-05-20 12:04 | Nephrology Progress Note ---
Assessment/Plan Problem List: (1) Acute kidney failure (2) Acute encephalopathy (3) Cirrhosis of liver (4) Anemia Assessment Septic shock due to Providencia bacteremia - PICC placed and started back on IV antibiotics--on vanco, zosyn, difucan x 5 days per ID--currently day 3 Acute upper GI bleed w/ hematemesis - underwent EGD 05/10/18 which showed no bleeding varices but hemorrhagic gastritis, s/p epinephrine injection, cont PPI , transfuse for hgb<7 or active bleeding. Hgb stable Acute hypoxic respiratory failure - stable respiratory status. Decompensated alcoholic cirrhosis c/b ascites and hepatic encephalopathy - s/p therapeutic paracentesis this admission, continue rifaximin and lactulose. AGNIESZKA due to ATN from sepsis and hypotension - Acute metabolic encephalopathy - resolving, Thrombocytopenia - multifactorial f Coagulopathy - 2/2 cirrhosis, ctm LE ulcerations - surgery following for wound care, no evidence of cellulitis Hypoglycemia - likely in setting of liver failure, ctm Diarrhea - Deconditioning - PT/OT eval, likely needs SNF. SW/Cm consulted. Pt hesitant to d /c to SNF, prefers to go home. Home health ordered Code Status: Full Plan transfused and got IV mag off antibiotics increase lactulose dose midodrine PT OT Dc planning Subjective ROS Limited/Unobtainable: No Constitutional: Reports: weakness Objective Objective Last 24 Hour Vital Signs Date Time Temp Pulse Resp B/P (MAP) Pulse Ox O2 Delivery O2 Flow Rate FiO2 05/20/18 11:44 97.2 100 20 119/75 (90) 96 97.2 05/20/18 09:07 108/58 05/20/18 08:11 97.3 98 20 108/58 (75) 96 97.3 05/20/18 04:00 97.4 100 20 104/56 (72) 95 97.4 05/20/18 00:00 97.7 97 20 128/69 (88) 95 97.7 05/19/18 21:00 Room Air Room Air 05/19/18 20:00 97.5 97 20 122/78 (93) 97 97.5 05/19/18 17:14 120/77 05/19/18 16:00 97.1 98 20 120/77 (91) 97 97.1 05/19/18 12:46 122/73 Intake and Output 05/19/18 05/20/18 19:00 07:00 Intake Total 1000 ml 250 ml Output Total 600 ml 350 ml Balance 400 ml -100 ml Intake Oral 1000 ml 250 ml Output Urine Total 600 ml 350 ml # Bowel Movements 3 1 Laboratory Tests 05/19/18 12:20: Prothrombin Time 22.0H, Prothromb Time International Ratio 2.2H, Activated Partial Thromboplast Time 48H 05/20/18 04:55: White Blood Count 6.0, Red Blood Count 2.73L, Hemoglobin 9.1L, Hematocrit 25.9L , Mean Corpuscular Volume 95, Mean Corpuscular Hemoglobin 33.1H, Mean Corpuscular Hemoglobin Concent 35.0, Red Cell Distribution Width 16.8H, Platelet Count 65L, Mean Platelet Volume 5.8L, Neutrophils (%) (Auto) , Lymphocytes (%) (Auto) , Monocytes (%) (Auto) , Eosinophils (%) (Auto) , Basophils (%) (Auto) , Differential Total Cells Counted 100, Neutrophils % ( Manual) 73, Lymphocytes % (Manual) 9L, Monocytes % (Manual) 13H, Eosinophils % ( Manual) 3, Basophils % (Manual) 2, Band Neutrophils 0, Platelet Estimate DecreasedL, Platelet Morphology Normal, Hypochromasia 1+, Spherocytes 2+, Sodium Level 131L, Potassium Level 3.8, Chloride Level 100, Carbon Dioxide Level 26, Anion Gap 5, Blood Urea Nitrogen 12, Creatinine 1.4H, Estimat Glomerular Filtration Rate > 60, Glucose Level 117H, Uric Acid 3.5, Calcium Level 8.3L, Phosphorus Level 2.9, Magnesium Level 1.7L, Total Bilirubin 7.1H, Direct Bilirubin 2.5H, Aspartate Amino Transf (AST/SGOT) 40H, Alanine Aminotransferase (ALT/SGPT) 28, Alkaline Phosphatase 113, Ammonia 56H, Total Protein 6.8, Albumin 1.7L, Globulin 5.1, Albumin/Globulin Ratio 0.3L Height (Feet): 5 Height (Inches): 9.00 Weight (Pounds): 325 General Appearance: no apparent distress, lethargic Cardiovascular: tachycardia Respiratory/Chest: decreased breath sounds Abdomen: distended Extremities: moderate edema Ari Ortega MD May 20, 2018 12:04
--- NOTE | 2018-05-20 15:50 | General Progress Note ---
Assessment/Plan Assessment/Plan encephalopathy due to [facility] agitation seroquel prn provided ro/st Subjective Date patient seen: May 20, 2018 Neurologic/Psychiatric: Reports: anxiety Allergies: Coded Allergies: No Known Allergies (Unverified , 04/29/18) Subjective the pt is stable Objective Last 24 Hour Vital Signs Date Time Temp Pulse Resp B/P (MAP) Pulse Ox O2 Delivery O2 Flow Rate FiO2 05/20/18 11:44 97.2 100 20 119/75 (90) 96 97.2 05/20/18 09:07 108/58 05/20/18 08:11 97.3 98 20 108/58 (75) 96 97.3 05/20/18 04:00 97.4 100 20 104/56 (72) 95 97.4 05/20/18 00:00 97.7 97 20 128/69 (88) 95 97.7 05/19/18 21:00 Room Air Room Air 05/19/18 20:00 97.5 97 20 122/78 (93) 97 97.5 05/19/18 17:14 120/77 05/19/18 16:00 97.1 98 20 120/77 (91) 97 97.1 Intake and Output 05/19/18 05/20/18 19:00 07:00 Intake Total 1000 ml 250 ml Output Total 600 ml 350 ml Balance 400 ml -100 ml Intake Oral 1000 ml 250 ml Output Urine Total 600 ml 350 ml # Bowel Movements 3 1 Laboratory Tests 05/20/18 04:55: White Blood Count 6.0, Red Blood Count 2.73L, Hemoglobin 9.1L, Hematocrit 25.9L , Mean Corpuscular Volume 95, Mean Corpuscular Hemoglobin 33.1H, Mean Corpuscular Hemoglobin Concent 35.0, Red Cell Distribution Width 16.8H, Platelet Count 65L, Mean Platelet Volume 5.8L, Neutrophils (%) (Auto) , Lymphocytes (%) (Auto) , Monocytes (%) (Auto) , Eosinophils (%) (Auto) , Basophils (%) (Auto) , Differential Total Cells Counted 100, Neutrophils % ( Manual) 73, Lymphocytes % (Manual) 9L, Monocytes % (Manual) 13H, Eosinophils % ( Manual) 3, Basophils % (Manual) 2, Band Neutrophils 0, Platelet Estimate DecreasedL, Platelet Morphology Normal, Hypochromasia 1+, Spherocytes 2+, Sodium Level 131L, Potassium Level 3.8, Chloride Level 100, Carbon Dioxide Level 26, Anion Gap 5, Blood Urea Nitrogen 12, Creatinine 1.4H, Estimat Glomerular Filtration Rate > 60, Glucose Level 117H, Uric Acid 3.5, Calcium Level 8.3L, Phosphorus Level 2.9, Magnesium Level 1.7L, Total Bilirubin 7.1H, Direct Bilirubin 2.5H, Aspartate Amino Transf (AST/SGOT) 40H, Alanine Aminotransferase (ALT/SGPT) 28, Alkaline Phosphatase 113, Ammonia 56H, Total Protein 6.8, Albumin 1.7L, Globulin 5.1, Albumin/Globulin Ratio 0.3L Height (Feet): 5 Height (Inches): 9.00 Weight (Pounds): 325 Chava Rivas MD May 20, 2018 15:50
--- NOTE | 2018-05-20 16:17 | Infectious Diseases Prog Note ---
Assessment/Plan Assessment/Plan ASSESSMENT AND PLAN: 1. sepsis, shock, providencia bacteremia, mrsa pna, mrsa/proteus right leg wound infection, right leg cellulitis, gib, leukocytosis, fevers s/p bronchoscopy, sc-yeast, fungemia risk, leukocytosis better, chest x-ray better, fevers resolved - s/p zyvox, cipro and diflucan - monitor labs and chest x-ray - clinically improved, chest x-ray improved 2. Liver cirrhosis, elevated TB 3. Portal hypertension. 4. Ascites. 5. Anemia. 6. Thrombocytopenia. 7. Respiratory failure. 8. Low blood pressure. 9. Sepsis, shock. 10. Varices. 11. ETOH hepatitis. 12. Coagulopathy. 13. Altered mental status 14. hepatic encephalopathy 15. Past medical history noted. 16. He has no known allergies. 17. Social history is presumptively I think positive for ETOH. Cannot assess smoking or IV drug abuse. 18. Family history is noncontributory. 19. MAR was noted. 20. Case discussed with RN. 21. ICU care. 22. Case discussed with Dr. Rasmussen. 23. Continue treatment per primary consultants. 24. Poor prognosis. 25. Orders were entered and noted. 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 Subjective Constitutional: Reports: fatigue; Denies: fever HEENT: Denies: congestion Respiratory: Denies: shortness of breath Cardiovascular: Denies: chest pain Gastrointestinal/Abdominal: Denies: nausea, diarrhea Genitourinary: Reports: other - + grimm Neurologic: Denies: headache Psychiatric: Denies: depression Skin: Denies: rash Hematologic: Denies: bleeding Musculoskeletal: Denies: pain Allergies: Coded Allergies: No Known Allergies (Unverified , 04/29/18) Objective Vital Signs Last 24 Hour Vital Signs Date Time Temp Pulse Resp B/P (MAP) Pulse Ox O2 Delivery O2 Flow Rate FiO2 05/20/18 11:44 97.2 100 20 119/75 (90) 96 97.2 05/20/18 09:07 108/58 05/20/18 08:11 97.3 98 20 108/58 (75) 96 97.3 05/20/18 04:00 97.4 100 20 104/56 (72) 95 97.4 05/20/18 00:00 97.7 97 20 128/69 (88) 95 97.7 05/19/18 21:00 Room Air Room Air 05/19/18 20:00 97.5 97 20 122/78 (93) 97 97.5 05/19/18 17:14 120/77 Height (Feet): 5 Height (Inches): 9.00 Weight (Pounds): 325 General Appearance: no acute distress HEENT: normocephalic, atraumatic, mucous membranes moist, supple, no JVD, other - possible icterus Respiratory/Chest: crackles/rales, rhonchi - bilaterally Cardiovascular: normal rate, regular rhythm, no gallop/murmur, no JVD Abdomen: normal bowel sounds, soft, non tender, distended Genitourinary: other - + grimm - urine clear Extremities: no cyanosis Skin: no rash 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 Right internal jugular, grossly unchanged. Nasogastric tube in gastric cavity. Endotracheal tube 5 cm above the pamela. Increasing opacity in bilateral mid to lower lung zones. No pleural effusions. The visualized osseous structures are within normal limits. IMPRESSION: Stable tubes and lines as outlined above. Increasing opacity in bilateral mid to lower lung zones. CT imaging noted - reports noted 05/03/18 - Chest x-ray - Findings: Patchy, heterogeneous airspace opacities and interstitial opacities identified. Heart is stable. Tubes and lines are stable. IMPRESSION: Patchy lung disease likely on the basis of pulmonary edema. Infiltrates not excluded. Chest x-ray - 05/08 - FINDINGS: Lungs: Low lung volumes, which may be related to shallow inspiration. Bilateral perihilar opacities with diffuse patchy pulmonary opacities, suggesting pulmonary edema. Pleural space: Unremarkable. The costophrenic angles are sharp. No visible pneumothorax. Heart: Unremarkable. No cardiomegaly. Mediastinum: Unremarkable. Bones/joints: Unremarkable. IMPRESSION: 1. Low lung volumes, which may be related to shallow inspiration. 2. Bilateral perihilar opacities with diffuse patchy pulmonary opacities, suggesting pulmonary edema. Cannot exclude an underlying pneumonia. Chest x-ray - 05/10/18 Comparison: 05/08/2018 Findings: Interim improvement but persistence of previously demonstrated interstitial edema. There is some blunting of the right costophrenic sulcus, likely a small amount of pleural fluid. No new infiltrates. Heart size is normal Impression: Improved but persistent pulmonary interstitial edema, over 2 days Possible small right pleural effusion Chest x-ray - 05/12 - Comparison: 05/10/2018 Findings: Inspiration is suboptimal. There is atelectasis in the left perihilar region. Generalized mild interstitial edema persists, unchanged. Interim placement of right arm PICC. Impression: Hypoventilatory exam with left perihilar atelectasis Interim PICC placement Unchanged mild interstitial edema Chest x-ray - 05/16 - FINDINGS/IMPRESSION: Limited exam due to low lung volumes and underpenetration. Heart size and mediastinal contours likely stable. Right arm PICC line unchanged. Interstitial opacification/edema with blunting of the right costophrenic sulcus and more focal linear opacities in the left midlung. There are some patchy opacities in the right lung is well. These findings may be related to worsening disease or artifactually exaggerated due to lower lung volumes on this exam. Correlate clinically. No acute osseous abnormality. Chest x-ray - 05/18 - Findings: Right arm PICC remains. There is slightly decreased interstitial edema. An of atelectasis or scarring in the left perihilar region is again demonstrated. Inspiration is suboptimal. Heart is upper limits normal in size. Impression: Improved interstitial congestion, over 3 days, with slight residual. Other findings as noted Microbiology Date/Time Source Procedure Growth Status 05/06/18 18:00 Blood Blood Culture - Final NO GROWTH AFTER 5 DAYS Complete 05/03/18 15:35 Ascities Fluid Gram Stain - Final Complete 05/03/18 15:35 Ascities Fluid Body Fluid Culture - Final NO GROWTH Complete 04/30/18 04:00 Wound Gram Stain - Final Complete 04/30/18 04:00 Wound Culture - Final Proteus Mirabilis Staphylococcus Aureus - Mrsa Complete 05/06/18 15:00 Bronchial Washings Not Specified Gram Stain - Final Complete 05/06/18 15:00 Bronchial Aspirate Culture - Final Mariah Albicans Mariah Dubliniensis Complete 05/04/18 05:00 Stool Clostridium difficile Toxin Assay - Final Complete 04/29/18 17:00 Rectum VRE Culture - Final Enterococcus Faecalis - Vre Complete Laboratory Tests Test 05/20/18 04:55 White Blood Count 6.0 K/UL (4.8-10.8) Red Blood Count 2.73 M/UL (4.70-6.10) L Hemoglobin 9.1 G/DL (14.2-18.0) L Hematocrit 25.9 % (42.0-52.0) L Mean Corpuscular Volume 95 FL (80-99) Mean Corpuscular Hemoglobin 33.1 PG (27.0-31.0) H Mean Corpuscular Hemoglobin Concent 35.0 G/DL (32.0-36.0) Red Cell Distribution Width 16.8 % (11.6-14.8) H Platelet Count 65 K/UL (150-450) L Mean Platelet Volume 5.8 FL (6.5-10.1) L Neutrophils (%) (Auto) % (45.0-75.0) Lymphocytes (%) (Auto) % (20.0-45.0) Monocytes (%) (Auto) % (1.0-10.0) Eosinophils (%) (Auto) % (0.0-3.0) Basophils (%) (Auto) % (0.0-2.0) Differential Total Cells Counted 100 Neutrophils % (Manual) 73 % (45-75) Lymphocytes % (Manual) 9 % (20-45) L Monocytes % (Manual) 13 % (1-10) H Eosinophils % (Manual) 3 % (0-3) Basophils % (Manual) 2 % (0-2) Band Neutrophils 0 % (0-8) Platelet Estimate Decreased L Platelet Morphology Normal Hypochromasia 1+ Spherocytes 2+ Sodium Level 131 MMOL/L (136-145) L Potassium Level 3.8 MMOL/L (3.5-5.1) Chloride Level 100 MMOL/L (98-107) Carbon Dioxide Level 26 MMOL/L (21-32) Anion Gap 5 mmol/L (5-15) Blood Urea Nitrogen 12 mg/dL (7-18) Creatinine 1.4 MG/DL (0.55-1.30) H Estimat Glomerular Filtration Rate > 60 mL/min (>60) Glucose Level 117 MG/DL (74-106) H Uric Acid 3.5 MG/DL (2.6-7.2) Calcium Level 8.3 MG/DL (8.5-10.1) L Phosphorus Level 2.9 MG/DL (2.5-4.9) Magnesium Level 1.7 MG/DL (1.8-2.4) L Total Bilirubin 7.1 MG/DL (0.2-1.0) H Direct Bilirubin 2.5 MG/DL (0.0-0.3) H Aspartate Amino Transf (AST/SGOT) 40 U/L (15-37) H Alanine Aminotransferase (ALT/SGPT) 28 U/L (12-78) Alkaline Phosphatase 113 U/L (46-116) Ammonia 56 umol/L (11-32) H Total Protein 6.8 G/DL (6.4-8.2) Albumin 1.7 G/DL (3.4-5.0) L Globulin 5.1 g/dL Albumin/Globulin Ratio 0.3 (1.0-2.7) L Current Medications Medications (Trade) Dose Ordered Sig/Ry Route PRN Reason Start Time Stop Time Status Last Admin Dose Admin Chlorhexidine Gluconate (Fatemeh-Hex 2%) 1 applic DAILY@1999 TOPIC 05/13/18 20:00 06/09/18 19:59 05/19/18 20:01 Lactulose (Cephulac) 40 gm THREE TIMES A DAY ORAL 05/17/18 13:00 05/30/18 12:59 Midodrine (Pro-Amatine) 2.5 mg THREE TIMES A DAY ORAL 05/17/18 13:00 06/16/18 12:59 05/20/18 09:07 Ondansetron HCl (Zofran) 4 mg Q6H PRN IVP Nausea & Vomiting 05/13/18 01:30 06/09/18 01:29 05/13/18 16:35 Pantoprazole (Protonix) 40 mg EVERY 12 HOURS ORAL 05/16/18 21:00 06/15/18 20:59 05/20/18 09:07 Pentoxifylline (TRENtal) 400 mg THREE TIMES A DAY ORAL 05/19/18 13:00 05/31/18 09:00 05/20/18 09:07 Prochlorperazine (Compazine) 10 mg Q6H PRN IVP Nausea & Vomiting 05/16/18 15:15 06/15/18 15:14 05/16/18 18:14 Trazodone HCl (Desyrel) 50 mg Q8H PRN ORAL INSOMNIA 05/13/18 20:15 06/12/18 20:14 05/16/18 00:57 Doris Ramos MD May 20, 2018 16:17
[2018-05-20 16:18] VITALS: BP 121/73
--- NOTE | 2018-05-20 17:34 | Brief Operative Note ---
Immediate Post Operative Note Operative Note Pre-op Diagnosis: ascites Procedure: paracentesis Post-op Diagnosis: same as pre-op Surgeon: Suzanna VIDALES Anesthesia: local Specimen: none Complications: none Fluids: none Implant(s) used?: No Ernesto Vidales MD May 20, 2018 17:34
--- NOTE | 2018-05-20 17:34 | Pre-Procedure Note/Attestation ---
Pre-Procedure Note/Attestation Complete Prior to Procedure Planned Procedure: not applicable Procedure Narrative: Paracentesis Indications for Procedure Pre-Operative Diagnosis: ascites Attestation I attest that I discussed the nature of the procedure; its benefits; risks and complications; and alternatives (and the risks and benefits of such alternatives ), prior to the procedure, with the patient (or the patient's legal district sales representative). I attest that, if there was a reasonable possibility of needing a blood transfusion, the patient (or the patient's legal district sales representative) was given the [facility] standardized written summary, pursuant to the [employer]ian Blood Safety Act ([place] Health and Safety Code # 1645, as amended). I attest that I re-evaluated the patient just prior to the surgery and that there has been no change in the patient's H&P, except as documented below: Ernesto Vidales MD May 20, 2018 17:34
--- NOTE | 2018-05-20 17:54 | Diagnostic Imaging Report ---
Indications: Ascites Technique: Ultrasound used to localize optimal puncture site. Sterile prepping and draping right lower quadrant. Local anesthesia with 1% lidocaine. Under real-time ultrasound guidance, puncture peritoneal space using paracentesis needle. Stylet removed. Catheter placed to vacuum bottle suction. Total 10.1 liters of fluid aspirated. Patient tolerated procedure well, without immediate complication. Findings: Followup sonography demonstrates complete resolution of peritoneal fluid. Impression: Successful ultrasound-guided paracentesis, yielding 10.1 liters of fluid
--- NOTE | 2018-05-20 18:35 | General Progress Note ---
Assessment/Plan Status: stable Assessment/Plan Septic shock due to Providencia bacteremia - PICC placed and started back on IV antibiotics, s/p vanco and zosyn, s/p zyvox, cipro and diflucan, monitor off abx Acute upper GI bleed w/ hematemesis - underwent EGD 05/10/18 which showed no bleeding varices but hemorrhagic gastritis, s/p epinephrine injection, cont PPI , transfuse for hgb<7 or active bleeding. s/p 2U pRBCs on 05/19/18 --> hgb 9.1 Acute hypoxic respiratory failure - stable respiratory status. Decompensated alcoholic cirrhosis c/b ascites and hepatic encephalopathy - s/p therapeutic paracentesis this admission, continue rifaximin and lactulose. Pentoxyfylline 400mg TID started by GI AGNIESZKA due to ATN from sepsis and hypotension - SCr rising again, renal consulted, s/p IVFs, cont midodrine 2.5mg TID, monitor BMP Acute metabolic encephalopathy - resolving, cont lactulose, continue supportive measures Thrombocytopenia - multifactorial from ESLD, bone marrow suppression from septic shock, platelet counts improving. Coagulopathy - 2/2 cirrhosis, ctm LE ulcerations - surgery following for wound care, no evidence of cellulitis Hypoglycemia - likely in setting of liver failure, ctm Diarrhea - neg stool C. diff Deconditioning - PT/OT Dispo - pt from recuperative skilled nursing and needs to be independent on d/c. Will require SNF placement DVT Prophylaxis: SCD Code Status: Full Hospital Classification Declaration: Based on this initial evaluation, and depending on the patient's clinical course, I anticipate that this patient will require hospitalization for 1-2 days for IV abx and close respiratory/ hemodynamic monitoring. Disposition: Once the patient is stable to leave the hospital, I anticipate the patient will likely be discharged to the following environment: home with HH vs SNF I spent 38 minutes on this patient's case, and 21 minutes were dedicated to counseling and/or care coordination. Discussed with patient/family, nursing staff, SW/CM, GI, ID regarding clinical status, treatment course, and disposition planning. Time of note may not reflect time of encounter. Subjective Date patient seen: May 20, 2018 Time patient seen: 12:00 ROS Limited/Unobtainable: No Constitutional: Reports: no symptoms HEENT: Reports: no symptoms Cardiovascular: Reports: no symptoms Respiratory: Reports: no symptoms Gastrointestinal/Abdominal: Reports: abdomen distended Genitourinary: Reports: no symptoms Neurologic/Psychiatric: Reports: no symptoms Endocrine: Reports: no symptoms Hematologic/Lymphatic: Reports: no symptoms Allergies: Coded Allergies: No Known Allergies (Unverified , 04/29/18) Subjective No acute o/n events SCr stable at 1.4 s/p 2U pRBCs--> hgb 9.1 Awaiting paracentesis today Awake, alert Denies pain, SOB Nausea improved Per SW/CM, pt from recuperative skilled nursing and needs to be independent on d/c. D/w pt that this is not a safe plan and he will need SNF Working w/ PT Objective Last 24 Hour Vital Signs Date Time Temp Pulse Resp B/P (MAP) Pulse Ox O2 Delivery O2 Flow Rate FiO2 05/20/18 17:03 121/73 05/20/18 16:18 97.7 98 19 121/73 (89) 97 97.7 05/20/18 11:44 97.2 100 20 119/75 (90) 96 97.2 05/20/18 09:07 108/58 05/20/18 09:00 Room Air Room Air 05/20/18 08:11 97.3 98 20 108/58 (75) 96 97.3 05/20/18 04:00 97.4 100 20 104/56 (72) 95 97.4 05/20/18 00:00 97.7 97 20 128/69 (88) 95 97.7 05/19/18 21:00 Room Air Room Air 05/19/18 20:00 97.5 97 20 122/78 (93) 97 97.5 Intake and Output 05/19/18 05/20/18 19:00 07:00 Intake Total 1000 ml 250 ml Output Total 600 ml 350 ml Balance 400 ml -100 ml Intake Oral 1000 ml 250 ml Output Urine Total 600 ml 350 ml # Bowel Movements 3 1 Laboratory Tests 05/20/18 04:55: White Blood Count 6.0, Red Blood Count 2.73L, Hemoglobin 9.1L, Hematocrit 25.9L , Mean Corpuscular Volume 95, Mean Corpuscular Hemoglobin 33.1H, Mean Corpuscular Hemoglobin Concent 35.0, Red Cell Distribution Width 16.8H, Platelet Count 65L, Mean Platelet Volume 5.8L, Neutrophils (%) (Auto) , Lymphocytes (%) (Auto) , Monocytes (%) (Auto) , Eosinophils (%) (Auto) , Basophils (%) (Auto) , Differential Total Cells Counted 100, Neutrophils % ( Manual) 73, Lymphocytes % (Manual) 9L, Monocytes % (Manual) 13H, Eosinophils % ( Manual) 3, Basophils % (Manual) 2, Band Neutrophils 0, Platelet Estimate DecreasedL, Platelet Morphology Normal, Hypochromasia 1+, Spherocytes 2+, Sodium Level 131L, Potassium Level 3.8, Chloride Level 100, Carbon Dioxide Level 26, Anion Gap 5, Blood Urea Nitrogen 12, Creatinine 1.4H, Estimat Glomerular Filtration Rate > 60, Glucose Level 117H, Uric Acid 3.5, Calcium Level 8.3L, Phosphorus Level 2.9, Magnesium Level 1.7L, Total Bilirubin 7.1H, Direct Bilirubin 2.5H, Aspartate Amino Transf (AST/SGOT) 40H, Alanine Aminotransferase (ALT/SGPT) 28, Alkaline Phosphatase 113, Ammonia 56H, Total Protein 6.8, Albumin 1.7L, Globulin 5.1, Albumin/Globulin Ratio 0.3L Height (Feet): 5 Height (Inches): 9.00 Weight (Pounds): 325 Objective General: alert, cooperative, no distress, appears stated age Head: normocephalic, without obvious abnormality, atraumatic Eyes: conjunctivae/corneas clear. PERRL, EOM's intact Throat: lips, mucosa, and tongue normal. MMM Neck: supple, symmetrical, trachea midline, and no JVD Lungs: clear to auscultation bilaterally Heart: regular rate and rhythm, S1, S2 normal, no murmur, click, rub or gallop Abdomen: soft, non-tender, some abd distention, no discrete fluid wave, bowel sounds normal Extremities: extremities normal, atraumatic, no cyanosis, +BLE edema Pulses: 2+ and symmetric Skin: multiple chronic venous stasis ulcers Neurologic: grossly normal, no focal deficits Gadiel Tam M.D. May 20, 2018 18:35
[2018-05-20 20:00] VITALS: BP 109/62
[2018-05-20] MEDS: Dyna-Hex 2% Top Sol 2oz TOPIC SCH (20:00)
--- NOTE | 2018-05-20 22:19 | General Progress Note ---
Assessment/Plan Assessment/Plan Assessment - UGIB - gastritis - N/V - Cirrhosis - alcoholic - portal HTN - no varicies on current EGD - presumed EtOH hepatitis - some recovery in labs noted - coagulopathy - ascites - s/p tap x 2 - sepsis, no SBP on paracentesis fluid - Resp failure - AMS, likely hepatic encephalopathy - hypoglycemia - guarded Recommendation: - renal f/u - continue lactulose - trantal x 30 days (until 05/31/17) - follow labs - broad abx - PPI - d/c planning --> f/u at transplant center Subjective Allergies: Coded Allergies: No Known Allergies (Unverified , 04/29/18) Subjective Above noted s/p 10 liter paracentesis today feels OK no new symptoms Objective Last 24 Hour Vital Signs Date Time Temp Pulse Resp B/P (MAP) Pulse Ox O2 Delivery O2 Flow Rate FiO2 05/20/18 17:03 121/73 05/20/18 16:18 97.7 98 19 121/73 (89) 97 97.7 05/20/18 11:44 97.2 100 20 119/75 (90) 96 97.2 05/20/18 09:07 108/58 05/20/18 09:00 Room Air Room Air 05/20/18 08:11 97.3 98 20 108/58 (75) 96 97.3 05/20/18 04:00 97.4 100 20 104/56 (72) 95 97.4 05/20/18 00:00 97.7 97 20 128/69 (88) 95 97.7 Intake and Output 05/19/18 05/20/18 19:00 07:00 Intake Total 1000 ml 250 ml Output Total 600 ml 350 ml Balance 400 ml -100 ml Intake Oral 1000 ml 250 ml Output Urine Total 600 ml 350 ml # Bowel Movements 3 1 Laboratory Tests 05/20/18 04:55: White Blood Count 6.0, Red Blood Count 2.73L, Hemoglobin 9.1L, Hematocrit 25.9L , Mean Corpuscular Volume 95, Mean Corpuscular Hemoglobin 33.1H, Mean Corpuscular Hemoglobin Concent 35.0, Red Cell Distribution Width 16.8H, Platelet Count 65L, Mean Platelet Volume 5.8L, Neutrophils (%) (Auto) , Lymphocytes (%) (Auto) , Monocytes (%) (Auto) , Eosinophils (%) (Auto) , Basophils (%) (Auto) , Differential Total Cells Counted 100, Neutrophils % ( Manual) 73, Lymphocytes % (Manual) 9L, Monocytes % (Manual) 13H, Eosinophils % ( Manual) 3, Basophils % (Manual) 2, Band Neutrophils 0, Platelet Estimate DecreasedL, Platelet Morphology Normal, Hypochromasia 1+, Spherocytes 2+, Sodium Level 131L, Potassium Level 3.8, Chloride Level 100, Carbon Dioxide Level 26, Anion Gap 5, Blood Urea Nitrogen 12, Creatinine 1.4H, Estimat Glomerular Filtration Rate > 60, Glucose Level 117H, Uric Acid 3.5, Calcium Level 8.3L, Phosphorus Level 2.9, Magnesium Level 1.7L, Total Bilirubin 7.1H, Direct Bilirubin 2.5H, Aspartate Amino Transf (AST/SGOT) 40H, Alanine Aminotransferase (ALT/SGPT) 28, Alkaline Phosphatase 113, Ammonia 56H, Total Protein 6.8, Albumin 1.7L, Globulin 5.1, Albumin/Globulin Ratio 0.3L Height (Feet): 5 Height (Inches): 9.00 Weight (Pounds): 325 Objective WDWN WM NCAT supple CTA RRR Soft / Obese trace edema sedated Pierre Suggs MD May 20, 2018 22:18
[2018-05-21] VITALS: BP 110/61
[2018-05-21 04:00] VITALS: BP 109/58
[2018-05-21 08:00] VITALS: BP 113/69
--- NOTE | 2018-05-21 08:01 | General Progress Note ---
Assessment/Plan Assessment/Plan ssessment - UGIB - gastritis - N/V - Cirrhosis - alcoholic - portal HTN - no varicies on current EGD - presumed EtOH hepatitis - some recovery in labs noted - coagulopathy - ascites - s/p tap x 2 - sepsis, no SBP on paracentesis fluid - Resp failure - AMS, likely hepatic encephalopathy - hypoglycemia - guarded Recommendation: - renal f/u - continue lactulose - trantal x 30 days (until 05/31/17) - follow labs - broad abx - PPI - d/c planning --> f/u at transplant center Subjective Allergies: Coded Allergies: No Known Allergies (Unverified , 04/29/18) Subjective no event Objective Last 24 Hour Vital Signs Date Time Temp Pulse Resp B/P (MAP) Pulse Ox O2 Delivery O2 Flow Rate FiO2 05/21/18 04:00 97.2 98 20 109/58 (75) 97 97.2 05/21/18 00:00 97.7 98 20 110/61 (77) 96 97.7 05/20/18 21:00 Room Air Room Air 05/20/18 20:00 97.3 99 20 109/62 (78) 97 97.3 05/20/18 17:03 121/73 05/20/18 16:18 97.7 98 19 121/73 (89) 97 97.7 05/20/18 11:44 97.2 100 20 119/75 (90) 96 97.2 05/20/18 09:07 108/58 05/20/18 09:00 Room Air Room Air 05/20/18 08:11 97.3 98 20 108/58 (75) 96 97.3 Intake and Output 05/20/18 05/21/18 19:00 07:00 Intake Total 860 ml 650 ml Output Total 1601 ml 350 ml Balance -741 ml 300 ml Intake Oral 360 ml 350 ml IV Total 300 ml Blood Product 500 ml Output Urine Total 600 ml 350 ml Gastric Drainage Total 1001 ml # Bowel Movements 2 2 Height (Feet): 5 Height (Inches): 9.00 Weight (Pounds): 305 General Appearance: no apparent distress EENT: normal ENT inspection Neck: supple Cardiovascular: normal rate Respiratory/Chest: decreased breath sounds Abdomen: soft, decreased bowel sounds, distended Extremities: non-tender Nj Kumari MD May 21, 2018 08:01
[2018-05-21] MEDS: Lactulose 20gm/30ml UDC ORAL SCH ×3 (09:27→18:00)
--- NOTE | 2018-05-21 09:27 | Nephrology Progress Note ---
Assessment/Plan Problem List: (1) Acute kidney failure (2) Acute encephalopathy (3) Cirrhosis of liver (4) Anemia Assessment Septic shock due to Providencia bacteremia - PICC placed and started back on IV antibiotics--on vanco, zosyn, difucan x 5 days per ID--currently day 3 Acute upper GI bleed w/ hematemesis - underwent EGD 05/10/18 which showed no bleeding varices but hemorrhagic gastritis, s/p epinephrine injection, cont PPI , transfuse for hgb<7 or active bleeding. Hgb stable Acute hypoxic respiratory failure - stable respiratory status. Decompensated alcoholic cirrhosis c/b ascites and hepatic encephalopathy - s/p therapeutic paracentesis this admission, continue rifaximin and lactulose. AGNIESZKA due to ATN from sepsis and hypotension - Acute metabolic encephalopathy - resolving, Thrombocytopenia - multifactorial f Coagulopathy - 2/2 cirrhosis, ctm LE ulcerations - surgery following for wound care, no evidence of cellulitis Hypoglycemia - likely in setting of liver failure, ctm Diarrhea - Deconditioning - PT/OT eval, likely needs SNF. SW/Cm consulted. Pt hesitant to d /c to SNF, prefers to go home. Home health ordered Code Status: Full Plan transfused and got IV mag off antibiotics increase lactulose dose midodrine PT OT Dc planning Subjective ROS Limited/Unobtainable: No Objective Objective Last 24 Hour Vital Signs Date Time Temp Pulse Resp B/P (MAP) Pulse Ox O2 Delivery O2 Flow Rate FiO2 05/21/18 08:00 98.0 92 19 113/69 (84) 94 98.0 05/21/18 04:00 97.2 98 20 109/58 (75) 97 97.2 05/21/18 00:00 97.7 98 20 110/61 (77) 96 97.7 05/20/18 21:00 Room Air Room Air 05/20/18 20:00 97.3 99 20 109/62 (78) 97 97.3 05/20/18 17:03 121/73 05/20/18 16:18 97.7 98 19 121/73 (89) 97 97.7 05/20/18 11:44 97.2 100 20 119/75 (90) 96 97.2 Intake and Output 05/20/18 05/21/18 19:00 07:00 Intake Total 860 ml 650 ml Output Total 1601 ml 350 ml Balance -741 ml 300 ml Intake Oral 360 ml 350 ml IV Total 300 ml Blood Product 500 ml Output Urine Total 600 ml 350 ml Gastric Drainage Total 1001 ml # Bowel Movements 2 2 Height (Feet): 5 Height (Inches): 9.00 Weight (Pounds): 305 General Appearance: no apparent distress Objective no change Ari Ortega MD May 21, 2018 09:27
[2018-05-21 12:00] VITALS: BP 121/71
--- NOTE | 2018-05-21 14:17 | General Progress Note ---
Assessment/Plan Assessment/Plan #. Thrombocytopenia, potentially secondary to septic shock and myelosuppression , severe sepsis, RLE cellulitis in addition to PNA, closely monitor, peripheral smear has been reviewed. The patient continues to have lactic acidosis, improved at this time and, in addition, imaging reviewed. 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 Coagulopathy with portal hypertension, cirrhosis of liver, large volume ascites, requires paracentesis and requires vitamin K --> vit K prn basis --> on abx, vanc others as per ID --> as per ID, appreciate their recs #. Leukocytosis, likely secondary to underlying infection, ulceration seen by surgery, potentially related to underlying sepsis versus other causes such as SBP; but again has been seen by GI team --> s/p paracentesis and prn in the future --> on abx for right lower ext ulceration #. AGNIESZKA, on IV fluids as needed #. Acute encephalopathy --> now better #. Septic shock. now has improved. --> s/p abx, continues #. SNF placement once found ==> is homeless Greatly appreciate consultation JP MCCLOUD and RN Subjective Constitutional: Denies: no symptoms, chills, diaphoresis, fever, malaise, weakness, other HEENT: Denies: no symptoms, eye pain, blurred vision, tearing, double vision, ear pain, ear discharge, nose pain, nose congestion, throat pain, throat swelling, mouth pain, mouth swelling, other Cardiovascular: Denies: no symptoms, chest pain, edema, irregular heart rate, lightheadedness, palpitations, syncope, other Respiratory: Denies: no symptoms, cough, orthopnea, shortness of breath, SOB with excertion, SOB at rest, sputum, stridor, wheezing, other Gastrointestinal/Abdominal: Denies: no symptoms, abdomen distended, abdominal pain, black stools, tarry stools, blood in stool, constipated, diarrhea, difficulty swallowing, nausea, poor appetite, poor fluid intake, rectal bleeding , vomiting, other Genitourinary: Denies: no symptoms, burning, discharge, frequency, flank pain, hematuria, incontinence, pain, urgency, other Neurologic/Psychiatric: Denies: no symptoms, anxiety, depressed, emotional problems, headache, numbness, paresthesia, pre-existing deficit, seizure, tingling, tremors, weakness, other Endocrine: Reports: no symptoms Hematologic/Lymphatic: Reports: anemia Allergies: Coded Allergies: No Known Allergies (Unverified , 04/29/18) Subjective labs reviewed, no blood transfusion required today, pending placement v home Objective Last 24 Hour Vital Signs Date Time Temp Pulse Resp B/P (MAP) Pulse Ox O2 Delivery O2 Flow Rate FiO2 05/21/18 12:45 121/71 05/21/18 12:00 98.4 95 18 121/71 (88) 99 98.4 05/21/18 09:28 113/69 05/21/18 09:00 Room Air Room Air 05/21/18 08:00 98.0 92 19 113/69 (84) 94 98.0 05/21/18 04:00 97.2 98 20 109/58 (75) 97 97.2 05/21/18 00:00 97.7 98 20 110/61 (77) 96 97.7 05/20/18 21:00 Room Air Room Air 05/20/18 20:00 97.3 99 20 109/62 (78) 97 97.3 05/20/18 17:03 121/73 05/20/18 16:18 97.7 98 19 121/73 (89) 97 97.7 Intake and Output 05/20/18 05/21/18 19:00 07:00 Intake Total 860 ml 650 ml Output Total 1601 ml 350 ml Balance -741 ml 300 ml Intake Oral 360 ml 350 ml IV Total 300 ml Blood Product 500 ml Output Urine Total 600 ml 350 ml Gastric Drainage Total 1001 ml # Bowel Movements 2 2 Height (Feet): 5 Height (Inches): 9.00 Weight (Pounds): 305 General Appearance: no apparent distress EENT: TMs normal Neck: normal inspection Cardiovascular: regular rhythm Respiratory/Chest: no respiratory distress Abdomen: no organomegaly Extremities: normal inspection Edema: no edema noted Leg (R), no edema noted Pedal (L) Edema: mild edema Neurologic: alert Eric Irizarry MD May 21, 2018 14:17
[2018-05-21 15:53] VITALS: BP 122/67
--- NOTE | 2018-05-21 19:48 | General Progress Note ---
Assessment/Plan Status: stable Assessment/Plan Septic shock due to Providencia bacteremia - PICC placed and started back on IV antibiotics, s/p vanco and zosyn, s/p zyvox, cipro and diflucan, now off all antibiotcs Acute upper GI bleed w/ hematemesis - underwent EGD 05/10/18 which showed no bleeding varices but hemorrhagic gastritis, s/p epinephrine injection, cont PPI , transfuse for hgb<7 or active bleeding.Check CBC in AM. Acute hypoxic respiratory failure - stable respiratory status. Decompensated alcoholic cirrhosis c/b ascites and hepatic encephalopathy - s/p therapeutic paracentesis this admission, continue rifaximin and lactulose + Pentoxyfylline 400mg TID per GI AGNIESZKA due to ATN from sepsis and hypotension - continue midodrine and check BMP in AM Acute metabolic encephalopathy - resolved, cont lactulose, continue supportive measures Thrombocytopenia - multifactorial from ESLD, bone marrow suppression from septic shock, Stable counts. Coagulopathy - 2/2 cirrhosis, ctm LE ulcerations - surgery following for wound care. Hypoglycemia - likely in setting of liver failure, continue to monitor Diarrhea - resolving, neg stool C. diff Deconditioning - PT/OT Dispo - pt from recuperative [facility] and needs to be independent on d/c. He is agreeable to SNF per my discussion today Subjective Date patient seen: May 21, 2018 Time patient seen: 16:00 ROS Limited/Unobtainable: No Constitutional: Denies: fever Cardiovascular: Denies: chest pain Respiratory: Denies: cough, shortness of breath Gastrointestinal/Abdominal: Denies: abdominal pain Allergies: Coded Allergies: No Known Allergies (Unverified , 04/29/18) Subjective Medicine followup for multiple medical conditions including septic shock, acute hypoxic respiratory failure, decompensated cirrhosis, AGNIESZKA. Continue to improve, he agrees to go to SNF prior to go to recuperative [facility] Objective Last 24 Hour Vital Signs Date Time Temp Pulse Resp B/P (MAP) Pulse Ox O2 Delivery O2 Flow Rate FiO2 05/21/18 18:19 122/67 05/21/18 15:53 97.3 97 19 122/67 (85) 97 97.3 05/21/18 12:45 121/71 05/21/18 12:00 98.4 95 18 121/71 (88) 99 98.4 05/21/18 09:28 113/69 05/21/18 09:00 Room Air Room Air 05/21/18 08:00 98.0 92 19 113/69 (84) 94 98.0 05/21/18 04:00 97.2 98 20 109/58 (75) 97 97.2 05/21/18 00:00 97.7 98 20 110/61 (77) 96 97.7 05/20/18 21:00 Room Air Room Air 05/20/18 20:00 97.3 99 20 109/62 (78) 97 97.3 Intake and Output 05/20/18 05/21/18 19:00 07:00 Intake Total 860 ml 650 ml Output Total 1601 ml 350 ml Balance -741 ml 300 ml Intake Oral 360 ml 350 ml IV Total 300 ml Blood Product 500 ml Output Urine Total 600 ml 350 ml Gastric Drainage Total 1001 ml # Bowel Movements 2 2 Height (Feet): 5 Height (Inches): 9.00 Weight (Pounds): 305 General Appearance: no apparent distress, alert Neck: non-tender, supple Cardiovascular: normal rate, regular rhythm Respiratory/Chest: lungs clear, normal breath sounds Abdomen: non tender, soft Extremities: swelling - bilateral ankle edema Krzysztof Gonsalves MD May 21, 2018 19:48
[2018-05-21 20:00] VITALS: BP 117/74
[2018-05-21] MEDS: Dyna-Hex 2% Top Sol 2oz TOPIC SCH (20:00)
[2018-05-22] VITALS: BP 117/71
[2018-05-22 04:00] VITALS: BP 108/63
[2018-05-22 05:25] LABS: HEMOGLOBIN 8.5 G/DL (14.2-18.0); MEAN CORPUSCULAR VOLUME 96 FL (80-99); PLATELET COUNT 40 K/UL (150-450); RED BLOOD COUNT 2.62 M/UL (4.70-6.10); RED CELL DISTRIBUTION WIDTH 16.5 % (11.6-14.8); WHITE BLOOD COUNT 4.5 K/UL (4.8-10.8)
[2018-05-22 05:44] LABS: PHOSPHORUS 2.4 MG/DL (2.5-4.9)
[2018-05-22 05:47] LABS: ALANINE AMINOTRANSFERASE 25 U/L (12-78); ALBUMIN 1.7 G/DL (3.4-5.0); ALBUMIN/GLOBULIN RATIO 0.3 (1.0-2.7); ALKALINE PHOSPHATASE 120 U/L (46-116); ANION GAP 3 mmol/L (5-15); ASPARTATE AMINO TRANSFERASE 38 U/L (15-37); BILIRUBIN,TOTAL 4.8 MG/DL (0.2-1.0); BLOOD UREA NITROGEN 11 mg/dL (7-18); CALCIUM 8.4 MG/DL (8.5-10.1); CARBON DIOXIDE 29 MMOL/L (21-32); CHLORIDE 101 MMOL/L (98-107); CREATININE 1.4 MG/DL (0.55-1.30); POTASSIUM 3.6 MMOL/L (3.5-5.1); SODIUM 133 MMOL/L (136-145)
--- NOTE | 2018-05-22 06:34 | General Progress Note ---
Assessment/Plan Assessment/Plan ssessment - UGIB - gastritis - N/V - Cirrhosis - alcoholic - portal HTN - no varicies on current EGD - presumed EtOH hepatitis - some recovery in labs noted - coagulopathy - ascites - s/p tap x 2 - sepsis, no SBP on paracentesis fluid - Resp failure - AMS, likely hepatic encephalopathy - hypoglycemia - guarded Recommendation: - renal f/u - continue lactulose - trantal x 30 days (until 05/31/17) - follow labs - broad abx - PPI - d/c planning --> f/u at transplant center Subjective ROS Limited/Unobtainable: Yes Allergies: Coded Allergies: No Known Allergies (Unverified , 04/29/18) Subjective no event Objective Last 24 Hour Vital Signs Date Time Temp Pulse Resp B/P (MAP) Pulse Ox O2 Delivery O2 Flow Rate FiO2 05/22/18 04:00 98.2 98 19 108/63 (78) 97 98.2 05/22/18 00:00 98.7 100 19 117/71 (86) 96 98.7 05/21/18 21:00 Room Air Room Air 05/21/18 20:00 98.0 88 19 117/74 (88) 97 98.0 05/21/18 18:19 122/67 05/21/18 15:53 97.3 97 19 122/67 (85) 97 97.3 05/21/18 12:45 121/71 05/21/18 12:00 98.4 95 18 121/71 (88) 99 98.4 05/21/18 09:28 113/69 05/21/18 09:00 Room Air Room Air 05/21/18 08:00 98.0 92 19 113/69 (84) 94 98.0 Intake and Output 05/21/18 05/22/18 19:00 07:00 Intake Total 650 ml Output Total 300 ml Balance 350 ml Other 650 ml Output Urine Total 300 ml # Bowel Movements 3 Laboratory Tests 05/22/18 04:55: White Blood Count 4.5L, Red Blood Count 2.62L, Hemoglobin 8.5L, Hematocrit 25.0L , Mean Corpuscular Volume 96, Mean Corpuscular Hemoglobin 32.5H, Mean Corpuscular Hemoglobin Concent 34.0, Red Cell Distribution Width 16.5H, Platelet Count 40L, Mean Platelet Volume 6.1L, Neutrophils (%) (Auto) , Lymphocytes (%) (Auto) , Monocytes (%) (Auto) , Eosinophils (%) (Auto) , Basophils (%) (Auto) , Neutrophils % (Manual) [Pending], Lymphocytes % (Manual) [Pending], Platelet Estimate [Pending], Platelet Morphology [Pending], Sodium Level 133L, Potassium Level 3.6, Chloride Level 101, Carbon Dioxide Level 29, Anion Gap 3L, Blood Urea Nitrogen 11, Creatinine 1.4H, Estimat Glomerular Filtration Rate > 60, Glucose Level 102, Uric Acid 3.4, Calcium Level 8.4L, Phosphorus Level 2.4L, Magnesium Level 1.7L, Total Bilirubin 4.8H, Direct Bilirubin 2.0H, Aspartate Amino Transf (AST/SGOT) 38H, Alanine Aminotransferase (ALT/SGPT) 25, Alkaline Phosphatase 120H, Ammonia 46H, Total Protein 6.6, Albumin 1.7L, Globulin 4.9, Albumin/Globulin Ratio 0.3L Height (Feet): 5 Height (Inches): 9.00 Weight (Pounds): 305 General Appearance: no apparent distress EENT: normal ENT inspection Neck: supple Cardiovascular: normal rate Respiratory/Chest: decreased breath sounds Abdomen: normal bowel sounds, non tender, soft Extremities: non-tender Nj Kumari MD May 22, 2018 06:34
[2018-05-22 08:13] VITALS: BP 117/66
[2018-05-22] MEDS: Lactulose 20gm/30ml UDC ORAL SCH ×4 (08:15→17:57)
--- NOTE | 2018-05-22 11:08 | Nephrology Progress Note ---
Assessment/Plan Problem List: (1) Acute kidney failure (2) Acute encephalopathy (3) Cirrhosis of liver (4) Anemia Assessment Septic shock due to Providencia bacteremia - PICC placed and started back on IV antibiotics--on vanco, zosyn, difucan x 5 days per ID--currently day 3 Acute upper GI bleed w/ hematemesis - underwent EGD 05/10/18 which showed no bleeding varices but hemorrhagic gastritis, s/p epinephrine injection, cont PPI , transfuse for hgb<7 or active bleeding. Hgb stable Acute hypoxic respiratory failure - stable respiratory status. Decompensated alcoholic cirrhosis c/b ascites and hepatic encephalopathy - s/p therapeutic paracentesis this admission, continue rifaximin and lactulose. AGNIESZKA due to ATN from sepsis and hypotension - Acute metabolic encephalopathy - resolving, Thrombocytopenia - multifactorial f Coagulopathy - 2/2 cirrhosis, ctm LE ulcerations - surgery following for wound care, no evidence of cellulitis Hypoglycemia - likely in setting of liver failure, ctm Diarrhea - Deconditioning - PT/OT eval, likely needs SNF. SW/Cm consulted. Pt hesitant to d /c to SNF, prefers to go home. Home health ordered Code Status: Full Plan transfused IV mag start Coreg off antibiotics increase lactulose dose midodrine PT OT DC planning Subjective ROS Limited/Unobtainable: No Constitutional: Reports: malaise Objective Objective Last 24 Hour Vital Signs Date Time Temp Pulse Resp B/P (MAP) Pulse Ox O2 Delivery O2 Flow Rate FiO2 05/22/18 09:51 Room Air Room Air 05/22/18 08:15 117/66 05/22/18 08:13 97.7 103 19 117/66 (83) 96 97.7 05/22/18 04:00 98.2 98 19 108/63 (78) 97 98.2 05/22/18 00:00 98.7 100 19 117/71 (86) 96 98.7 05/21/18 21:00 Room Air Room Air 05/21/18 20:00 98.0 88 19 117/74 (88) 97 98.0 05/21/18 18:19 122/67 05/21/18 15:53 97.3 97 19 122/67 (85) 97 97.3 05/21/18 12:45 121/71 05/21/18 12:00 98.4 95 18 121/71 (88) 99 98.4 Intake and Output 05/21/18 05/22/18 19:00 07:00 Intake Total 650 ml 240 ml Output Total 300 ml 450 ml Balance 350 ml -210 ml Intake Oral 240 ml Other 650 ml Output Urine Total 300 ml 450 ml # Bowel Movements 3 1 Laboratory Tests 05/22/18 04:55: White Blood Count 4.5L, Red Blood Count 2.62L, Hemoglobin 8.5L, Hematocrit 25.0L , Mean Corpuscular Volume 96, Mean Corpuscular Hemoglobin 32.5H, Mean Corpuscular Hemoglobin Concent 34.0, Red Cell Distribution Width 16.5H, Platelet Count 40L, Mean Platelet Volume 6.1L, Neutrophils (%) (Auto) , Lymphocytes (%) (Auto) , Monocytes (%) (Auto) , Eosinophils (%) (Auto) , Basophils (%) (Auto) , Differential Total Cells Counted 100, Neutrophils % ( Manual) 72, Lymphocytes % (Manual) 15L, Monocytes % (Manual) 8, Eosinophils % ( Manual) 5H, Basophils % (Manual) 0, Band Neutrophils 0, Platelet Estimate DecreasedL, Platelet Morphology Normal, Hypochromasia 1+, Anisocytosis 1+, Sodium Level 133L, Potassium Level 3.6, Chloride Level 101, Carbon Dioxide Level 29, Anion Gap 3L, Blood Urea Nitrogen 11, Creatinine 1.4H, Estimat Glomerular Filtration Rate > 60, Glucose Level 102, Uric Acid 3.4, Calcium Level 8.4L, Phosphorus Level 2.4L, Magnesium Level 1.7L, Total Bilirubin 4.8H, Direct Bilirubin 2.0H, Aspartate Amino Transf (AST/SGOT) 38H, Alanine Aminotransferase (ALT/SGPT) 25, Alkaline Phosphatase 120H, Ammonia 46H, Total Protein 6.6, Albumin 1.7L, Globulin 4.9, Albumin/Globulin Ratio 0.3L Height (Feet): 5 Height (Inches): 9.00 Weight (Pounds): 293 General Appearance: no apparent distress Cardiovascular: tachycardia Respiratory/Chest: decreased breath sounds Abdomen: distended Objective no change Ari Ortega MD May 22, 2018 11:08
--- NOTE | 2018-05-22 11:40 | Diagnostic Imaging Report ---
EXAM: XR Chest, 1 View CLINICAL HISTORY: INFECT TECHNIQUE: Frontal view of the chest. COMPARISON: Chest x-ray dated 05/18/18 FINDINGS: Lungs: Linear atelectasis versus scarring in the mid left lung. Subsegmental atelectasis in the medial lung bases. Persistent decreased lung volumes, which may be related to shallow inspiration. Mild pulmonary vascular congestion. Pleural space: Unremarkable. The costophrenic angles are sharp. No visible pneumothorax. Heart: Unremarkable. No cardiomegaly. Mediastinum: Unremarkable. Bones/joints: Unremarkable. IMPRESSION: 1. Linear atelectasis versus scarring in the mid left lung, unchanged. 2. Subsegmental atelectasis in the medial lung bases, not significant changed. 3. Mild pulmonary vascular congestion.
[2018-05-22 12:00] VITALS: BP 118/71
--- NOTE | 2018-05-22 14:24 | General Progress Note ---
Assessment/Plan Assessment/Plan #. Thrombocytopenia, potentially secondary to septic shock and myelosuppression , severe sepsis, RLE cellulitis in addition to PNA, closely monitor, peripheral smear has been reviewed. Baseline is 40-70K. The patient continues to have lactic acidosis, improved at this time and, in addition, imaging reviewed. 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 Coagulopathy with portal hypertension, cirrhosis of liver, large volume ascites, requires paracentesis and requires vitamin K --> vit K prn basis --> on abx, vanc others as per ID --> as per ID, appreciate their recs #. Leukocytosis, likely secondary to underlying infection, ulceration seen by surgery, potentially related to underlying sepsis versus other causes such as SBP; but again has been seen by GI team --> s/p paracentesis and prn in the future --> on abx for right lower ext ulceration #. AGNIESZKA, on IV fluids as needed #. Acute encephalopathy --> now better #. Septic shock. now has improved. --> s/p abx, continues #. SNF placement once found ==> is homeless Greatly appreciate consultation JP MCCLOUD and RN Subjective Constitutional: Denies: no symptoms, chills, diaphoresis, fever, malaise, weakness, other Cardiovascular: Denies: no symptoms, chest pain, edema, irregular heart rate, lightheadedness, palpitations, syncope, other Respiratory: Denies: no symptoms, cough, orthopnea, shortness of breath, SOB with excertion, SOB at rest, sputum, stridor, wheezing, other Gastrointestinal/Abdominal: Denies: no symptoms, abdomen distended, abdominal pain, black stools, tarry stools, blood in stool, constipated, diarrhea, difficulty swallowing, nausea, poor appetite, poor fluid intake, rectal bleeding , vomiting, other Genitourinary: Denies: no symptoms, burning, discharge, frequency, flank pain, hematuria, incontinence, pain, urgency, other Neurologic/Psychiatric: Denies: no symptoms, anxiety, depressed, emotional problems, headache, numbness, paresthesia, pre-existing deficit, seizure, tingling, tremors, weakness, other Endocrine: Denies: no symptoms, excessive sweating, flushing, intolerance to cold, intolerance to heat, increased hunger, increased thirst, increased urine, unexplained weight gain, unexplained weight loss, other Hematologic/Lymphatic: Denies: no symptoms, anemia, easy bleeding, easy bruising, other Allergies: Coded Allergies: No Known Allergies (Unverified , 04/29/18) Subjective labs reviewed, no blood transfusion required today, pending placement, #s slightly lower today Objective Last 24 Hour Vital Signs Date Time Temp Pulse Resp B/P (MAP) Pulse Ox O2 Delivery O2 Flow Rate FiO2 05/22/18 12:23 96 118/71 05/22/18 12:23 118/71 05/22/18 12:00 98.7 96 18 118/71 (87) 96 98.7 05/22/18 09:51 Room Air Room Air 05/22/18 08:15 117/66 05/22/18 08:13 97.7 103 19 117/66 (83) 96 97.7 05/22/18 04:00 98.2 98 19 108/63 (78) 97 98.2 05/22/18 00:00 98.7 100 19 117/71 (86) 96 98.7 05/21/18 21:00 Room Air Room Air 05/21/18 20:00 98.0 88 19 117/74 (88) 97 98.0 05/21/18 18:19 122/67 05/21/18 15:53 97.3 97 19 122/67 (85) 97 97.3 Intake and Output 05/21/18 05/22/18 19:00 07:00 Intake Total 650 ml 240 ml Output Total 300 ml 450 ml Balance 350 ml -210 ml Intake Oral 240 ml Other 650 ml Output Urine Total 300 ml 450 ml # Bowel Movements 3 1 Laboratory Tests 05/22/18 04:55: White Blood Count 4.5L, Red Blood Count 2.62L, Hemoglobin 8.5L, Hematocrit 25.0L , Mean Corpuscular Volume 96, Mean Corpuscular Hemoglobin 32.5H, Mean Corpuscular Hemoglobin Concent 34.0, Red Cell Distribution Width 16.5H, Platelet Count 40L, Mean Platelet Volume 6.1L, Neutrophils (%) (Auto) , Lymphocytes (%) (Auto) , Monocytes (%) (Auto) , Eosinophils (%) (Auto) , Basophils (%) (Auto) , Differential Total Cells Counted 100, Neutrophils % ( Manual) 72, Lymphocytes % (Manual) 15L, Monocytes % (Manual) 8, Eosinophils % ( Manual) 5H, Basophils % (Manual) 0, Band Neutrophils 0, Platelet Estimate DecreasedL, Platelet Morphology Normal, Hypochromasia 1+, Anisocytosis 1+, Sodium Level 133L, Potassium Level 3.6, Chloride Level 101, Carbon Dioxide Level 29, Anion Gap 3L, Blood Urea Nitrogen 11, Creatinine 1.4H, Estimat Glomerular Filtration Rate > 60, Glucose Level 102, Uric Acid 3.4, Calcium Level 8.4L, Phosphorus Level 2.4L, Magnesium Level 1.7L, Total Bilirubin 4.8H, Direct Bilirubin 2.0H, Aspartate Amino Transf (AST/SGOT) 38H, Alanine Aminotransferase (ALT/SGPT) 25, Alkaline Phosphatase 120H, Ammonia 46H, Total Protein 6.6, Albumin 1.7L, Globulin 4.9, Albumin/Globulin Ratio 0.3L Height (Feet): 5 Height (Inches): 9.00 Weight (Pounds): 293 General Appearance: no apparent distress EENT: pharynx normal Neck: supple Cardiovascular: regular rhythm Respiratory/Chest: no respiratory distress Abdomen: no organomegaly Extremities: non-tender Edema: 1+ Leg (L), 1+ Leg (R) Edema: mild edema Neurologic: oriented x 3 Eric Irizarry MD May 22, 2018 14:24
--- NOTE | 2018-05-22 15:36 | General Progress Note ---
Assessment/Plan Status: stable Assessment/Plan Septic shock due to Providencia bacteremia - now off all antibiotcs Acute upper GI bleed w/ hematemesis - underwent EGD 05/10/18 which showed no bleeding varices but hemorrhagic gastritis, s/p epinephrine injection, cont PPI , transfuse for hgb<7 or active bleeding.Continue to monitor H&H Acute hypoxic respiratory failure - stable respiratory status. Decompensated alcoholic cirrhosis c/b ascites and hepatic encephalopathy - s/p therapeutic paracentesis this admission, continue rifaximin + Pentoxyfylline 400mg TID per GI. Refusing lactulose for now as it was causing nausea. AGNIESZKA due to ATN from sepsis and hypotension - stable renal function Acute metabolic encephalopathy - resolved, continue supportive measures Thrombocytopenia - multifactorial from ESLD, bone marrow suppression from septic shock, Stable counts. Coagulopathy - 2/2 cirrhosis, ctm LE ulcerations - surgery following for wound care. Hypoglycemia - likely in setting of liver failure, continue to monitor Diarrhea - resolving, neg stool C. diff Deconditioning - PT/OT Dispo - Patient agreeable to SNF, will discuss with case management Subjective Date patient seen: May 22, 2018 Time patient seen: 15:31 ROS Limited/Unobtainable: No Cardiovascular: Denies: chest pain Respiratory: Denies: cough Gastrointestinal/Abdominal: Denies: abdominal pain Allergies: Coded Allergies: No Known Allergies (Unverified , 04/29/18) Subjective Medicine followup for multiple medical conditions including septic shock, acute hypoxic respiratory failure, decompensated cirrhosis, AGNIESZKA. No new complaints, does not want to take lactulose as it was making giving him nausea. Objective Last 24 Hour Vital Signs Date Time Temp Pulse Resp B/P (MAP) Pulse Ox O2 Delivery O2 Flow Rate FiO2 05/22/18 12:23 96 118/71 05/22/18 12:23 118/71 05/22/18 12:00 98.7 96 18 118/71 (87) 96 98.7 05/22/18 09:51 Room Air Room Air 05/22/18 08:15 117/66 05/22/18 08:13 97.7 103 19 117/66 (83) 96 97.7 05/22/18 04:00 98.2 98 19 108/63 (78) 97 98.2 05/22/18 00:00 98.7 100 19 117/71 (86) 96 98.7 05/21/18 21:00 Room Air Room Air 05/21/18 20:00 98.0 88 19 117/74 (88) 97 98.0 05/21/18 18:19 122/67 05/21/18 15:53 97.3 97 19 122/67 (85) 97 97.3 Intake and Output 05/21/18 05/22/18 19:00 07:00 Intake Total 650 ml 240 ml Output Total 300 ml 450 ml Balance 350 ml -210 ml Intake Oral 240 ml Other 650 ml Output Urine Total 300 ml 450 ml # Bowel Movements 3 1 Laboratory Tests 05/22/18 04:55: White Blood Count 4.5L, Red Blood Count 2.62L, Hemoglobin 8.5L, Hematocrit 25.0L , Mean Corpuscular Volume 96, Mean Corpuscular Hemoglobin 32.5H, Mean Corpuscular Hemoglobin Concent 34.0, Red Cell Distribution Width 16.5H, Platelet Count 40L, Mean Platelet Volume 6.1L, Neutrophils (%) (Auto) , Lymphocytes (%) (Auto) , Monocytes (%) (Auto) , Eosinophils (%) (Auto) , Basophils (%) (Auto) , Differential Total Cells Counted 100, Neutrophils % ( Manual) 72, Lymphocytes % (Manual) 15L, Monocytes % (Manual) 8, Eosinophils % ( Manual) 5H, Basophils % (Manual) 0, Band Neutrophils 0, Platelet Estimate DecreasedL, Platelet Morphology Normal, Hypochromasia 1+, Anisocytosis 1+, Sodium Level 133L, Potassium Level 3.6, Chloride Level 101, Carbon Dioxide Level 29, Anion Gap 3L, Blood Urea Nitrogen 11, Creatinine 1.4H, Estimat Glomerular Filtration Rate > 60, Glucose Level 102, Uric Acid 3.4, Calcium Level 8.4L, Phosphorus Level 2.4L, Magnesium Level 1.7L, Total Bilirubin 4.8H, Direct Bilirubin 2.0H, Aspartate Amino Transf (AST/SGOT) 38H, Alanine Aminotransferase (ALT/SGPT) 25, Alkaline Phosphatase 120H, Ammonia 46H, Total Protein 6.6, Albumin 1.7L, Globulin 4.9, Albumin/Globulin Ratio 0.3L Height (Feet): 5 Height (Inches): 9.00 Weight (Pounds): 293 Cardiovascular: normal rate, regular rhythm Respiratory/Chest: lungs clear, normal breath sounds Abdomen: non tender, soft Krzysztof Gonsalves MD May 22, 2018 15:35
[2018-05-22 16:27] VITALS: BP 121/69
--- NOTE | 2018-05-22 17:06 | Infectious Diseases Prog Note ---
Assessment/Plan Assessment/Plan ASSESSMENT AND PLAN: 1. sepsis, shock, providencia bacteremia, mrsa pna, mrsa/proteus right leg wound infection, right leg cellulitis, gib, leukocytosis, fevers s/p bronchoscopy, sc-yeast, fungemia risk, leukocytosis better, chest x-ray better, fevers resolved - s/p zyvox, cipro and diflucan - stable off antibiotics - monitor labs and chest x-ray - clinically improved, chest x-ray improved - will sign off, please call if any questions or re-evaluation needed - thank you 2. Liver cirrhosis, elevated TB 3. Portal hypertension. 4. Ascites. 5. Anemia. 6. Thrombocytopenia. 7. Respiratory failure. 8. Low blood pressure. 9. Sepsis, shock. 10. Varices. 11. ETOH hepatitis. 12. Coagulopathy. 13. Altered mental status 14. hepatic encephalopathy 15. Past medical history noted. 16. He has no known allergies. 17. Social history is presumptively I think positive for ETOH. Cannot assess smoking or IV drug abuse. 18. Family history is noncontributory. 19. MAR was noted. 20. Case discussed with RN. 21. ICU care. 22. Case discussed with Dr. Rasmussen. 23. Continue treatment per primary consultants. 24. Poor prognosis. 25. Orders were entered and noted. 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 Subjective Constitutional: Denies: fever HEENT: Denies: congestion Respiratory: Denies: shortness of breath Cardiovascular: Denies: chest pain Gastrointestinal/Abdominal: Denies: nausea, vomiting, diarrhea Genitourinary: Denies: dysuria Neurologic: Denies: headache Psychiatric: Denies: depression Skin: Denies: rash Hematologic: Denies: bleeding Musculoskeletal: Denies: pain Allergies: Coded Allergies: No Known Allergies (Unverified , 04/29/18) Objective Vital Signs Last 24 Hour Vital Signs Date Time Temp Pulse Resp B/P (MAP) Pulse Ox O2 Delivery O2 Flow Rate FiO2 05/22/18 16:27 97.4 89 18 121/69 (86) 97 97.4 05/22/18 12:23 96 118/71 05/22/18 12:23 118/71 05/22/18 12:00 98.7 96 18 118/71 (87) 96 98.7 05/22/18 09:51 Room Air Room Air 05/22/18 08:15 117/66 05/22/18 08:13 97.7 103 19 117/66 (83) 96 97.7 05/22/18 04:00 98.2 98 19 108/63 (78) 97 98.2 05/22/18 00:00 98.7 100 19 117/71 (86) 96 98.7 05/21/18 21:00 Room Air Room Air 05/21/18 20:00 98.0 88 19 117/74 (88) 97 98.0 05/21/18 18:19 122/67 Height (Feet): 5 Height (Inches): 9.00 Weight (Pounds): 293 HEENT: normocephalic, atraumatic, EOMI, supple, no JVD, other - ? 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 Right internal jugular, grossly unchanged. Nasogastric tube in gastric cavity. Endotracheal tube 5 cm above the pamela. Increasing opacity in bilateral mid to lower lung zones. No pleural effusions. The visualized osseous structures are within normal limits. IMPRESSION: Stable tubes and lines as outlined above. Increasing opacity in bilateral mid to lower lung zones. CT imaging noted - reports noted 05/03/18 - Chest x-ray - Findings: Patchy, heterogeneous airspace opacities and interstitial opacities identified. Heart is stable. Tubes and lines are stable. IMPRESSION: Patchy lung disease likely on the basis of pulmonary edema. Infiltrates not excluded. Chest x-ray - 05/08 - FINDINGS: Lungs: Low lung volumes, which may be related to shallow inspiration. Bilateral perihilar opacities with diffuse patchy pulmonary opacities, suggesting pulmonary edema. Pleural space: Unremarkable. The costophrenic angles are sharp. No visible pneumothorax. Heart: Unremarkable. No cardiomegaly. Mediastinum: Unremarkable. Bones/joints: Unremarkable. IMPRESSION: 1. Low lung volumes, which may be related to shallow inspiration. 2. Bilateral perihilar opacities with diffuse patchy pulmonary opacities, suggesting pulmonary edema. Cannot exclude an underlying pneumonia. Chest x-ray - 05/10/18 Comparison: 05/08/2018 Findings: Interim improvement but persistence of previously demonstrated interstitial edema. There is some blunting of the right costophrenic sulcus, likely a small amount of pleural fluid. No new infiltrates. Heart size is normal Impression: Improved but persistent pulmonary interstitial edema, over 2 days Possible small right pleural effusion Chest x-ray - 05/12 - Comparison: 05/10/2018 Findings: Inspiration is suboptimal. There is atelectasis in the left perihilar region. Generalized mild interstitial edema persists, unchanged. Interim placement of right arm PICC. Impression: Hypoventilatory exam with left perihilar atelectasis Interim PICC placement Unchanged mild interstitial edema Chest x-ray - 05/16 - FINDINGS/IMPRESSION: Limited exam due to low lung volumes and underpenetration. Heart size and mediastinal contours likely stable. Right arm PICC line unchanged. Interstitial opacification/edema with blunting of the right costophrenic sulcus and more focal linear opacities in the left midlung. There are some patchy opacities in the right lung is well. These findings may be related to worsening disease or artifactually exaggerated due to lower lung volumes on this exam. Correlate clinically. No acute osseous abnormality. Chest x-ray - 05/18 - Findings: Right arm PICC remains. There is slightly decreased interstitial edema. An of atelectasis or scarring in the left perihilar region is again demonstrated. Inspiration is suboptimal. Heart is upper limits normal in size. Impression: Improved interstitial congestion, over 3 days, with slight residual. Other findings as noted 05/22 - Chest x-ray - atx noted, report noted Microbiology Date/Time Source Procedure Growth Status 05/06/18 18:00 Blood Blood Culture - Final NO GROWTH AFTER 5 DAYS Complete 05/03/18 15:35 Ascities Fluid Gram Stain - Final Complete 05/03/18 15:35 Ascities Fluid Body Fluid Culture - Final NO GROWTH Complete 04/30/18 04:00 Wound Gram Stain - Final Complete 04/30/18 04:00 Wound Culture - Final Proteus Mirabilis Staphylococcus Aureus - Mrsa Complete 05/06/18 15:00 Bronchial Washings Not Specified Gram Stain - Final Complete 05/06/18 15:00 Bronchial Aspirate Culture - Final Mariah Albicans Mariah Dubliniensis Complete 05/04/18 05:00 Stool Clostridium difficile Toxin Assay - Final Complete 04/29/18 17:00 Rectum VRE Culture - Final Enterococcus Faecalis - Vre Complete Laboratory Tests Test 05/22/18 04:55 White Blood Count 4.5 K/UL (4.8-10.8) L Red Blood Count 2.62 M/UL (4.70-6.10) L Hemoglobin 8.5 G/DL (14.2-18.0) L Hematocrit 25.0 % (42.0-52.0) L Mean Corpuscular Volume 96 FL (80-99) Mean Corpuscular Hemoglobin 32.5 PG (27.0-31.0) H Mean Corpuscular Hemoglobin Concent 34.0 G/DL (32.0-36.0) Red Cell Distribution Width 16.5 % (11.6-14.8) H Platelet Count 40 K/UL (150-450) L Mean Platelet Volume 6.1 FL (6.5-10.1) L Neutrophils (%) (Auto) % (45.0-75.0) Lymphocytes (%) (Auto) % (20.0-45.0) Monocytes (%) (Auto) % (1.0-10.0) Eosinophils (%) (Auto) % (0.0-3.0) Basophils (%) (Auto) % (0.0-2.0) Differential Total Cells Counted 100 Neutrophils % (Manual) 72 % (45-75) Lymphocytes % (Manual) 15 % (20-45) L Monocytes % (Manual) 8 % (1-10) Eosinophils % (Manual) 5 % (0-3) H Basophils % (Manual) 0 % (0-2) Band Neutrophils 0 % (0-8) Platelet Estimate Decreased L Platelet Morphology Normal Hypochromasia 1+ Anisocytosis 1+ Sodium Level 133 MMOL/L (136-145) L Potassium Level 3.6 MMOL/L (3.5-5.1) Chloride Level 101 MMOL/L (98-107) Carbon Dioxide Level 29 MMOL/L (21-32) Anion Gap 3 mmol/L (5-15) L Blood Urea Nitrogen 11 mg/dL (7-18) Creatinine 1.4 MG/DL (0.55-1.30) H Estimat Glomerular Filtration Rate > 60 mL/min (>60) Glucose Level 102 MG/DL (74-106) Uric Acid 3.4 MG/DL (2.6-7.2) Calcium Level 8.4 MG/DL (8.5-10.1) L Phosphorus Level 2.4 MG/DL (2.5-4.9) L Magnesium Level 1.7 MG/DL (1.8-2.4) L Total Bilirubin 4.8 MG/DL (0.2-1.0) H Direct Bilirubin 2.0 MG/DL (0.0-0.3) H Aspartate Amino Transf (AST/SGOT) 38 U/L (15-37) H Alanine Aminotransferase (ALT/SGPT) 25 U/L (12-78) Alkaline Phosphatase 120 U/L (46-116) H Ammonia 46 umol/L (11-32) H Total Protein 6.6 G/DL (6.4-8.2) Albumin 1.7 G/DL (3.4-5.0) L Globulin 4.9 g/dL Albumin/Globulin Ratio 0.3 (1.0-2.7) L Current Medications Medications (Trade) Dose Ordered Sig/Ry Route PRN Reason Start Time Stop Time Status Last Admin Dose Admin Carvedilol (Coreg) 3.125 mg EVERY 12 HOURS ORAL 05/22/18 21:00 06/21/18 20:59 Chlorhexidine Gluconate (Fatemeh-Hex 2%) 1 applic DAILY@1999 TOPIC 05/13/18 20:00 06/09/18 19:59 05/19/18 20:01 Lactulose (Cephulac) 30 gm THREE TIMES A DAY ORAL 05/22/18 13:00 05/30/18 12:59 Midodrine (Pro-Amatine) 2.5 mg THREE TIMES A DAY ORAL 05/22/18 13:00 06/16/18 12:59 Ondansetron HCl (Zofran) 4 mg Q6H PRN IVP Nausea & Vomiting 05/13/18 01:30 06/09/18 01:29 05/21/18 09:36 Pantoprazole (Protonix) 40 mg EVERY 12 HOURS ORAL 05/16/18 21:00 06/15/18 20:59 05/22/18 08:16 Pentoxifylline (TRENtal) 400 mg THREE TIMES A DAY ORAL 05/19/18 13:00 05/31/18 09:00 05/22/18 12:23 Prochlorperazine (Compazine) 10 mg Q6H PRN IVP Nausea & Vomiting 05/16/18 15:15 06/15/18 15:14 05/16/18 18:14 Trazodone HCl (Desyrel) 50 mg Q8H PRN ORAL INSOMNIA 05/13/18 20:15 06/12/18 20:14 05/16/18 00:57 Doris Ramos MD May 22, 2018 17:06
[2018-05-22] MEDS: Dyna-Hex 2% Top Sol 2oz TOPIC SCH (19:34)
[2018-05-22 20:00] VITALS: BP_SYST 111; BP_SYST 126; BP_DIAS 51; BP_DIAS 65
[2018-05-23] VITALS (7 sets, daily range): BP systolic 97–128; BP diastolic 53–79
--- NOTE | 2018-05-23 07:06 | General Progress Note ---
Assessment/Plan Assessment/Plan #. Thrombocytopenia, potentially secondary to septic shock and alcoholic myelosuppression, severe sepsis, RLE cellulitis in addition to PNA, closely monitor, peripheral smear has been reviewed. Baseline is 40-70K. The patient continues to have lactic acidosis, improved at this time and, in addition, imaging reviewed. 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 Coagulopathy with portal hypertension, cirrhosis of liver, large volume ascites, requires paracentesis and requires vitamin K --> vit K prn basis has been given sq --> on abx, vanc others as per ID --> as per ID, appreciate their recs #. Leukocytosis, likely secondary to underlying infection, ulceration seen by surgery, potentially related to underlying sepsis versus other causes such as SBP; but again has been seen by GI team --> s/p paracentesis and prn in the future --> on abx for right lower ext ulceration #. AGNIESZKA, on IV fluids as needed #. Acute encephalopathy --> now better #. Septic shock. now has improved. --> s/p abx, continues #. SNF placement once found ==> is homeless Greatly appreciate consultation! Subjective Constitutional: Denies: no symptoms, chills, diaphoresis, fever, malaise, weakness, other HEENT: Denies: no symptoms, eye pain, blurred vision, tearing, double vision, ear pain, ear discharge, nose pain, nose congestion, throat pain, throat swelling, mouth pain, mouth swelling, other Cardiovascular: Denies: no symptoms, chest pain, edema, irregular heart rate, lightheadedness, palpitations, syncope, other Respiratory: Denies: no symptoms, cough, orthopnea, shortness of breath, SOB with excertion, SOB at rest, sputum, stridor, wheezing, other Gastrointestinal/Abdominal: Denies: no symptoms, abdomen distended, abdominal pain, black stools, tarry stools, blood in stool, constipated, diarrhea, difficulty swallowing, nausea, poor appetite, poor fluid intake, rectal bleeding , vomiting, other Genitourinary: Denies: no symptoms, burning, discharge, frequency, flank pain, hematuria, incontinence, pain, urgency, other Neurologic/Psychiatric: Denies: no symptoms, anxiety, depressed, emotional problems, headache, numbness, paresthesia, pre-existing deficit, seizure, tingling, tremors, weakness, other Endocrine: Denies: no symptoms, excessive sweating, flushing, intolerance to cold, intolerance to heat, increased hunger, increased thirst, increased urine, unexplained weight gain, unexplained weight loss, other Hematologic/Lymphatic: Denies: no symptoms, anemia, easy bleeding, easy bruising, other Allergies: Coded Allergies: No Known Allergies (Unverified , 04/29/18) Subjective labs reviewed, cbc is pending today, plts downtrending recently Objective Last 24 Hour Vital Signs Date Time Temp Pulse Resp B/P (MAP) Pulse Ox O2 Delivery O2 Flow Rate FiO2 05/23/18 04:35 97.9 89 18 97/53 (68) 98 97.9 05/23/18 00:00 98.1 84 18 97/58 (71) 98 98.1 05/22/18 22:09 Room Air Room Air 05/22/18 20:00 98.0 79 18 111/65 (80) 96 98.0 05/22/18 18:03 121/69 05/22/18 16:27 97.4 89 18 121/69 (86) 97 97.4 05/22/18 12:23 96 118/71 05/22/18 12:23 118/71 05/22/18 12:00 98.7 96 18 118/71 (87) 96 98.7 05/22/18 09:51 Room Air Room Air 05/22/18 08:15 117/66 05/22/18 08:13 97.7 103 19 117/66 (83) 96 97.7 Intake and Output 05/22/18 05/23/18 19:00 07:00 Intake Total 900 ml Output Total 500 ml 400 ml Balance 400 ml -400 ml Other 900 ml Output Urine Total 500 ml 400 ml # Bowel Movements 4 Height (Feet): 5 Height (Inches): 9.00 Weight (Pounds): 299 General Appearance: no apparent distress EENT: TMs normal Neck: normal inspection Cardiovascular: normal rate Respiratory/Chest: lungs clear Extremities: non-tender Edema: mild edema Neurologic: oriented x 3 Skin: warm/dry Eric Irizarry MD May 23, 2018 07:06
[2018-05-23] MEDS: Lactulose 20gm/30ml UDC ORAL SCH ×3 (09:00→18:00)
[2018-05-23] MEDS: Magnesium Oxide 400mg tab ORAL SCH ×3 (09:31→18:48)
--- NOTE | 2018-05-23 12:24 | Nephrology Progress Note ---
Assessment/Plan Problem List: (1) Acute kidney failure (2) Acute encephalopathy (3) Cirrhosis of liver (4) Anemia Assessment Septic shock due to Providencia bacteremia - PICC placed and started back on IV antibiotics--on vanco, zosyn, difucan x 5 days per ID--currently day 3 Acute upper GI bleed w/ hematemesis - underwent EGD 05/10/18 which showed no bleeding varices but hemorrhagic gastritis, s/p epinephrine injection, cont PPI , transfuse for hgb<7 or active bleeding. Hgb stable Acute hypoxic respiratory failure - stable respiratory status. Decompensated alcoholic cirrhosis c/b ascites and hepatic encephalopathy - s/p therapeutic paracentesis this admission, continue rifaximin and lactulose. AGNIESZKA due to ATN from sepsis and hypotension - Acute metabolic encephalopathy - resolving, Thrombocytopenia - multifactorial f Coagulopathy - 2/2 cirrhosis, ctm LE ulcerations - surgery following for wound care, no evidence of cellulitis Hypoglycemia - likely in setting of liver failure, ctm Diarrhea - Deconditioning - PT/OT eval, likely needs SNF. SW/Cm consulted. Pt hesitant to d /c to SNF, prefers to go home. Home health ordered Code Status: Full Plan refused IV mag again 05/22 transfused start Coreg off antibiotics increase lactulose dose midodrine PT OT DC planning Subjective ROS Limited/Unobtainable: No Constitutional: Reports: weakness Objective Objective Last 24 Hour Vital Signs Date Time Temp Pulse Resp B/P (MAP) Pulse Ox O2 Delivery O2 Flow Rate FiO2 05/23/18 12:06 98/54 05/23/18 09:33 98/54 05/23/18 09:00 Room Air Room Air 05/23/18 09:00 74 98/54 05/23/18 08:00 97.4 74 18 98/54 (69) 99 97.4 05/23/18 04:35 97.9 89 18 97/53 (68) 98 97.9 05/23/18 00:00 98.1 84 18 97/58 (71) 98 98.1 05/22/18 22:09 Room Air Room Air 05/22/18 20:00 98.0 79 18 111/65 (80) 96 98.0 05/22/18 18:03 121/69 05/22/18 16:27 97.4 89 18 121/69 (86) 97 97.4 05/22/18 12:23 96 118/71 05/22/18 12:23 118/71 Intake and Output 05/22/18 05/23/18 19:00 07:00 Intake Total 900 ml Output Total 500 ml 400 ml Balance 400 ml -400 ml Other 900 ml Output Urine Total 500 ml 400 ml # Bowel Movements 4 Height (Feet): 5 Height (Inches): 9.00 Weight (Pounds): 299 General Appearance: no apparent distress Respiratory/Chest: decreased breath sounds Abdomen: soft, distended Objective no change Ari Ortega MD May 23, 2018 12:24
--- NOTE | 2018-05-23 18:55 | General Progress Note ---
Assessment/Plan Assessment/Plan Septic shock due to Providencia bacteremia - completed antibiotics Acute upper GI bleed w/ hematemesis - underwent EGD 05/10/18 which showed no bleeding varices but hemorrhagic gastritis, s/p epinephrine injection, cont PPI , check labs in AM. Acute hypoxic respiratory failure - stable respiratory status. Decompensated alcoholic cirrhosis c/b ascites and hepatic encephalopathy - s/p therapeutic paracentesis this admission, continue rifaximin + Pentoxyfylline 400mg TID per GI. AGNIESZKA due to ATN from sepsis and hypotension - stable renal function Acute metabolic encephalopathy - resolved, continue supportive measures Thrombocytopenia - multifactorial from ESLD, bone marrow suppression from septic shock, Stable counts. Coagulopathy - 2/2 cirrhosis, ctm LE ulcerations - surgery following for wound care. Hypoglycemia - likely in setting of liver failure, continue to monitor Diarrhea - resolving, neg stool C. diff Deconditioning - PT/OT Dispo - Awaiting SNF bed Subjective Date patient seen: May 23, 2018 Time patient seen: 16:30 ROS Limited/Unobtainable: No Constitutional: Denies: fever Cardiovascular: Denies: chest pain Respiratory: Denies: cough Gastrointestinal/Abdominal: Denies: abdomen distended, abdominal pain Allergies: Coded Allergies: No Known Allergies (Unverified , 04/29/18) Subjective Medicine followup for multiple medical conditions including septic shock, acute hypoxic respiratory failure, decompensated cirrhosis, AGNIESZKA. No new complaints, tolerating diet. Objective Last 24 Hour Vital Signs Date Time Temp Pulse Resp B/P (MAP) Pulse Ox O2 Delivery O2 Flow Rate FiO2 05/23/18 18:48 128/70 05/23/18 16:00 97.6 83 18 128/70 (89) 99 97.6 05/23/18 12:06 98/54 05/23/18 12:00 97.6 76 17 120/79 (93) 99 97.6 05/23/18 09:33 98/54 05/23/18 09:00 Room Air Room Air 05/23/18 09:00 74 98/54 05/23/18 08:00 97.4 74 18 98/54 (69) 99 97.4 05/23/18 04:35 97.9 89 18 97/53 (68) 98 97.9 05/23/18 00:00 98.1 84 18 97/58 (71) 98 98.1 05/22/18 22:09 Room Air Room Air 05/22/18 20:00 98.0 79 18 111/65 (80) 96 98.0 Intake and Output 05/22/18 05/23/18 19:00 07:00 Intake Total 900 ml Output Total 500 ml 400 ml Balance 400 ml -400 ml Other 900 ml Output Urine Total 500 ml 400 ml # Bowel Movements 4 Height (Feet): 5 Height (Inches): 9.00 Weight (Pounds): 299 General Appearance: no apparent distress, alert Neck: supple Cardiovascular: normal rate, regular rhythm Respiratory/Chest: lungs clear, normal breath sounds Abdomen: non tender, soft Krzysztof Gonsalves MD May 23, 2018 18:55
[2018-05-23] MEDS: Dyna-Hex 2% Top Sol 2oz TOPIC SCH (20:00)
--- NOTE | 2018-05-23 22:54 | General Progress Note ---
Assessment/Plan Assessment/Plan Assessment - UGIB - gastritis - N/V - Cirrhosis - alcoholic - portal HTN - no varicies on current EGD - presumed EtOH hepatitis - some recovery in labs noted - coagulopathy - ascites - s/p tap x 2, (+) edema - sepsis, no SBP on paracentesis fluid - hepatic encephalopathy Recommendation: - Begin diuretics, if OK with renal - continue lactulose - trantal x 30 days (until 05/31/17) - follow labs - broad abx - PPI - d/c planning --> f/u at transplant center Subjective Allergies: Coded Allergies: No Known Allergies (Unverified , 04/29/18) Subjective Above noted no new complaints Objective Last 24 Hour Vital Signs Date Time Temp Pulse Resp B/P (MAP) Pulse Ox O2 Delivery O2 Flow Rate FiO2 05/23/18 21:00 Room Air Room Air 05/23/18 21:00 89 123/67 05/23/18 20:00 98.6 89 16 123/67 (85) 99 98.6 05/23/18 18:48 128/70 05/23/18 16:00 97.6 83 18 128/70 (89) 99 97.6 05/23/18 12:06 98/54 05/23/18 12:00 97.6 76 17 120/79 (93) 99 97.6 05/23/18 09:33 98/54 05/23/18 09:00 Room Air Room Air 05/23/18 09:00 74 98/54 05/23/18 08:00 97.4 74 18 98/54 (69) 99 97.4 05/23/18 04:35 97.9 89 18 97/53 (68) 98 97.9 05/23/18 00:00 98.1 84 18 97/58 (71) 98 98.1 Intake and Output 05/22/18 05/23/18 19:00 07:00 Intake Total 900 ml Output Total 500 ml 400 ml Balance 400 ml -400 ml Other 900 ml Output Urine Total 500 ml 400 ml # Bowel Movements 4 Height (Feet): 5 Height (Inches): 9.00 Weight (Pounds): 299 Objective WDWN WM NCAT supple CTA RRR Soft / Obese (++) edema nonfocal Pierre Suggs MD May 23, 2018 22:54
[2018-05-24] VITALS: BP 118/65
[2018-05-24 04:00] VITALS: BP 122/74
[2018-05-24 07:06] LABS: ANION GAP 2 mmol/L (5-15); BLOOD UREA NITROGEN 11 mg/dL (7-18); CALCIUM 8.4 MG/DL (8.5-10.1); CARBON DIOXIDE 29 MMOL/L (21-32); CHLORIDE 103 MMOL/L (98-107); CREATININE 1.3 MG/DL (0.55-1.30); POTASSIUM 3.7 MMOL/L (3.5-5.1); SODIUM 134 MMOL/L (136-145)
[2018-05-24 07:17] LABS: HEMOGLOBIN 9.2 G/DL (14.2-18.0); MEAN CORPUSCULAR VOLUME 96 FL (80-99); PLATELET COUNT 28 K/UL (150-450); RED BLOOD COUNT 2.82 M/UL (4.70-6.10); RED CELL DISTRIBUTION WIDTH 16.8 % (11.6-14.8); WHITE BLOOD COUNT 5.8 K/UL (4.8-10.8)
--- NOTE | 2018-05-24 07:34 | General Progress Note ---
Assessment/Plan Assessment/Plan #. Thrombocytopenia, potentially secondary to septic shock and alcoholic myelosuppression, severe sepsis, RLE cellulitis in addition to PNA, closely monitor, peripheral smear has been reviewed. Baseline is 40-70K. The patient continues to have lactic acidosis, improved at this time and, in addition, imaging reviewed. 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 Coagulopathy with portal hypertension, cirrhosis of liver, large volume ascites, requires paracentesis and requires vitamin K --> vit K prn basis has been given sq --> on abx, vanc others as per ID --> as per ID, appreciate their recs #. Leukocytosis, likely secondary to underlying infection, ulceration seen by surgery, potentially related to underlying sepsis versus other causes such as SBP; but again has been seen by GI team --> s/p paracentesis and prn in the future --> on abx for right lower ext ulceration #. AGNIESZKA, on IV fluids as needed #. Acute encephalopathy --> now better #. Septic shock. now has improved. --> s/p abx, continues #. SNF placement once found ==> is homeless Greatly appreciate consultation! Subjective Constitutional: Denies: no symptoms, chills, diaphoresis, fever, malaise, weakness, other HEENT: Denies: no symptoms, eye pain, blurred vision, tearing, double vision, ear pain, ear discharge, nose pain, nose congestion, throat pain, throat swelling, mouth pain, mouth swelling, other Cardiovascular: Denies: no symptoms, chest pain, edema, irregular heart rate, lightheadedness, palpitations, syncope, other Respiratory: Denies: no symptoms, cough, orthopnea, shortness of breath, SOB with excertion, SOB at rest, sputum, stridor, wheezing, other Gastrointestinal/Abdominal: Denies: no symptoms, abdomen distended, abdominal pain, black stools, tarry stools, blood in stool, constipated, diarrhea, difficulty swallowing, nausea, poor appetite, poor fluid intake, rectal bleeding , vomiting, other Genitourinary: Denies: no symptoms, burning, discharge, frequency, flank pain, hematuria, incontinence, pain, urgency, other Neurologic/Psychiatric: Denies: no symptoms, anxiety, depressed, emotional problems, headache, numbness, paresthesia, pre-existing deficit, seizure, tingling, tremors, weakness, other Endocrine: Denies: no symptoms, excessive sweating, flushing, intolerance to cold, intolerance to heat, increased hunger, increased thirst, increased urine, unexplained weight gain, unexplained weight loss, other Hematologic/Lymphatic: Denies: no symptoms, anemia, easy bleeding, easy bruising, other Allergies: Coded Allergies: No Known Allergies (Unverified , 04/29/18) Subjective labs reviewed, cbc is pending today, plts downtrending today, ordered dic panel Objective Last 24 Hour Vital Signs Date Time Temp Pulse Resp B/P (MAP) Pulse Ox O2 Delivery O2 Flow Rate FiO2 05/24/18 04:00 98.9 73 18 122/74 (90) 100 98.9 05/24/18 00:00 98.4 82 16 118/65 (82) 100 98.4 05/23/18 21:00 Room Air Room Air 05/23/18 21:00 89 123/67 05/23/18 20:00 98.6 89 16 123/67 (85) 99 98.6 05/23/18 18:48 128/70 05/23/18 16:00 97.6 83 18 128/70 (89) 99 97.6 05/23/18 12:06 98/54 05/23/18 12:00 97.6 76 17 120/79 (93) 99 97.6 05/23/18 09:33 98/54 05/23/18 09:00 Room Air Room Air 05/23/18 09:00 74 98/54 05/23/18 08:00 97.4 74 18 98/54 (69) 99 97.4 Intake and Output 05/23/18 05/24/18 19:00 07:00 Intake Total 600 ml 1600 ml Output Total 500 ml Balance 600 ml 1100 ml Other 600 ml 1600 ml Other 500 ml # Voids 4 # Bowel Movements 2 2 Laboratory Tests 05/24/18 06:10: White Blood Count 5.8, Red Blood Count 2.82L, Hemoglobin 9.2L, Hematocrit 27.0L , Mean Corpuscular Volume 96, Mean Corpuscular Hemoglobin 32.6H, Mean Corpuscular Hemoglobin Concent 34.0, Red Cell Distribution Width 16.8H, Platelet Count 28L, Mean Platelet Volume 6.7, Neutrophils (%) (Auto) , Lymphocytes (%) (Auto) , Monocytes (%) (Auto) , Eosinophils (%) (Auto) , Basophils (%) (Auto) , Neutrophils % (Manual) [Pending], Lymphocytes % (Manual) [Pending], Platelet Estimate [Pending], Platelet Morphology [Pending], Sodium Level 134L, Potassium Level 3.7, Chloride Level 103, Carbon Dioxide Level 29, Anion Gap 2L, Blood Urea Nitrogen 11, Creatinine 1.3, Estimat Glomerular Filtration Rate > 60, Glucose Level 130H, Calcium Level 8.4L Height (Feet): 5 Height (Inches): 9.00 Weight (Pounds): 301 General Appearance: no apparent distress EENT: TMs normal Neck: normal inspection Cardiovascular: regular rhythm Respiratory/Chest: normal breath sounds Abdomen: non tender Extremities: normal inspection Edema: no edema noted Leg (L), no edema noted Leg (R) Edema: mild edema Neurologic: alert Eric Irizarry MD May 24, 2018 07:34
[2018-05-24 08:09] VITALS: BP 116/72
[2018-05-24] MEDS: Magnesium Oxide 400mg tab ORAL SCH ×3 (08:21→17:04)
[2018-05-24] MEDS: Lactulose 20gm/30ml UDC ORAL SCH ×3 (08:22→17:04)
[2018-05-24] MEDS ORDERED: Spironolactone 50mg tab ORAL SCH (09:00)
[2018-05-24 09:03] LABS: PHOSPHORUS 2.5 MG/DL (2.5-4.9)
--- NOTE | 2018-05-24 11:51 | Nephrology Progress Note ---
Assessment/Plan Problem List: (1) Acute kidney failure (2) Acute encephalopathy (3) Cirrhosis of liver (4) Anemia Assessment Septic shock due to Providencia bacteremia - PICC placed and started back on IV antibiotics--on vanco, zosyn, difucan x 5 days per ID--currently day 3 Acute upper GI bleed w/ hematemesis - underwent EGD 05/10/18 which showed no bleeding varices but hemorrhagic gastritis, s/p epinephrine injection, cont PPI , transfuse for hgb<7 or active bleeding. Hgb stable Acute hypoxic respiratory failure - stable respiratory status. Decompensated alcoholic cirrhosis c/b ascites and hepatic encephalopathy - s/p therapeutic paracentesis this admission, continue rifaximin and lactulose. AGNIESZKA due to ATN from sepsis and hypotension - Acute metabolic encephalopathy - resolving, Thrombocytopenia - multifactorial f Coagulopathy - 2/2 cirrhosis, ctm LE ulcerations - surgery following for wound care, no evidence of cellulitis Hypoglycemia - likely in setting of liver failure, ctm Diarrhea - Deconditioning - PT/OT eval, likely needs SNF. SW/Cm consulted. Pt hesitant to d /c to SNF, prefers to go home. Home health ordered Code Status: Full Plan refused IV mag again 05/22 transfused start Coreg off antibiotics increase lactulose dose midodrine PT OT DC planning Subjective ROS Limited/Unobtainable: No Constitutional: Reports: malaise, weakness Objective Objective Last 24 Hour Vital Signs Date Time Temp Pulse Resp B/P (MAP) Pulse Ox O2 Delivery O2 Flow Rate FiO2 05/24/18 09:00 Room Air Room Air 05/24/18 08:21 100 116/72 05/24/18 08:21 116/72 05/24/18 08:09 97.1 100 18 116/72 (87) 98 97.1 05/24/18 04:00 98.9 73 18 122/74 (90) 100 98.9 05/24/18 00:00 98.4 82 16 118/65 (82) 100 98.4 05/23/18 21:00 Room Air Room Air 05/23/18 21:00 89 123/67 05/23/18 20:00 98.6 89 16 123/67 (85) 99 98.6 05/23/18 18:48 128/70 10/1/18 16:00 97.6 83 18 128/70 (89) 99 97.6 05/23/18 12:06 98/54 05/23/18 12:00 97.6 76 17 120/79 (93) 99 97.6 Intake and Output 05/23/18 05/24/18 19:00 07:00 Intake Total 600 ml 1600 ml Output Total 500 ml Balance 600 ml 1100 ml Other 600 ml 1600 ml Other 500 ml # Voids 4 # Bowel Movements 2 2 Laboratory Tests 05/24/18 06:10: White Blood Count 5.8, Red Blood Count 2.82L, Hemoglobin 9.2L, Hematocrit 27.0L , Mean Corpuscular Volume 96, Mean Corpuscular Hemoglobin 32.6H, Mean Corpuscular Hemoglobin Concent 34.0, Red Cell Distribution Width 16.8H, Platelet Count 28L, Mean Platelet Volume 6.7, Neutrophils (%) (Auto) , Lymphocytes (%) (Auto) , Monocytes (%) (Auto) , Eosinophils (%) (Auto) , Basophils (%) (Auto) , Differential Total Cells Counted 100, Neutrophils % ( Manual) 66, Lymphocytes % (Manual) 13L, Monocytes % (Manual) 12H, Eosinophils % (Manual) 9H, Basophils % (Manual) 0, Band Neutrophils 0, Platelet Estimate DecreasedL, Platelet Morphology Normal, Hypochromasia 1+, Anisocytosis 1+, Haptoglobin [Pending], Sodium Level 134L, Potassium Level 3.7, Chloride Level 103, Carbon Dioxide Level 29, Anion Gap 2L, Blood Urea Nitrogen 11, Creatinine 1.3, Estimat Glomerular Filtration Rate > 60, Glucose Level 130H, Calcium Level 8.4L, Phosphorus Level 2.5, Magnesium Level 1.5L, Folate 6.2L 05/24/18 08:20: Fibrinogen 95*L, D-Dimer 4.36H Height (Feet): 5 Height (Inches): 9.00 Weight (Pounds): 301 General Appearance: no apparent distress, lethargic Cardiovascular: other - variable rate Respiratory/Chest: decreased breath sounds Abdomen: distended Objective no change Ari Ortega MD May 24, 2018 11:51
[2018-05-24 12:32] VITALS: BP 109/63
[2018-05-24 15:38] VITALS: BP 110/68
--- NOTE | 2018-05-24 19:42 | General Progress Note ---
Assessment/Plan Assessment/Plan Septic shock due to Providencia bacteremia - completed antibiotics Acute upper GI bleed w/ hematemesis - underwent EGD 05/10/18 which showed no bleeding varices but hemorrhagic gastritis, s/p epinephrine injection, cont PPI and monitor labs Acute hypoxic respiratory failure - stable respiratory status. Decompensated alcoholic cirrhosis c/b ascites and hepatic encephalopathy - s/p therapeutic paracentesis this admission, continue Lactulose, rifaximin + Pentoxyfylline 400mg TID per GI. AGNIESZKA due to ATN from sepsis and hypotension - stable renal function, Renal following Acute metabolic encephalopathy - resolved, continue supportive measures Thrombocytopenia - multifactorial from ESLD, bone marrow suppression from septic shock, Stable counts. Coagulopathy - 2/2 cirrhosis, ctm LE ulcerations - surgery following for wound care. Hypoglycemia - likely in setting of liver failure, continue to monitor Diarrhea - resolving, neg stool C. diff Deconditioning - PT/OT Dispo - Awaiting SNF bed Subjective Date patient seen: May 24, 2018 Time patient seen: 11:00 ROS Limited/Unobtainable: No Constitutional: Denies: chills Cardiovascular: Denies: chest pain Respiratory: Denies: cough Gastrointestinal/Abdominal: Denies: abdomen distended, abdominal pain Allergies: Coded Allergies: No Known Allergies (Unverified , 04/29/18) Subjective Medicine followup for multiple medical conditions including septic shock, acute hypoxic respiratory failure, decompensated cirrhosis, AGNIESZKA. No new issues, denies abdominal pain or distension Objective Last 24 Hour Vital Signs Date Time Temp Pulse Resp B/P (MAP) Pulse Ox O2 Delivery O2 Flow Rate FiO2 05/24/18 17:03 110/68 05/24/18 15:38 97.7 86 20 110/68 (82) 96 97.7 05/24/18 13:29 109/63 05/24/18 12:32 97.3 95 20 109/63 (78) 95 97.3 05/24/18 09:00 Room Air Room Air 05/24/18 08:21 100 116/72 05/24/18 08:21 116/72 05/24/18 08:09 97.1 100 18 116/72 (87) 98 97.1 05/24/18 04:00 98.9 73 18 122/74 (90) 100 98.9 05/24/18 00:00 98.4 82 16 118/65 (82) 100 98.4 05/23/18 21:00 Room Air Room Air 05/23/18 21:00 89 123/67 05/23/18 20:00 98.6 89 16 123/67 (85) 99 98.6 Intake and Output 05/23/18 05/24/18 19:00 07:00 Intake Total 600 ml 1600 ml Output Total 500 ml Balance 600 ml 1100 ml Other 600 ml 1600 ml Other 500 ml # Voids 4 # Bowel Movements 2 2 Laboratory Tests 05/24/18 06:10: White Blood Count 5.8, Red Blood Count 2.82L, Hemoglobin 9.2L, Hematocrit 27.0L , Mean Corpuscular Volume 96, Mean Corpuscular Hemoglobin 32.6H, Mean Corpuscular Hemoglobin Concent 34.0, Red Cell Distribution Width 16.8H, Platelet Count 28L, Mean Platelet Volume 6.7, Neutrophils (%) (Auto) , Lymphocytes (%) (Auto) , Monocytes (%) (Auto) , Eosinophils (%) (Auto) , Basophils (%) (Auto) , Differential Total Cells Counted 100, Neutrophils % ( Manual) 66, Lymphocytes % (Manual) 13L, Monocytes % (Manual) 12H, Eosinophils % (Manual) 9H, Basophils % (Manual) 0, Band Neutrophils 0, Platelet Estimate DecreasedL, Platelet Morphology Normal, Hypochromasia 1+, Anisocytosis 1+, Haptoglobin [Pending], Sodium Level 134L, Potassium Level 3.7, Chloride Level 103, Carbon Dioxide Level 29, Anion Gap 2L, Blood Urea Nitrogen 11, Creatinine 1.3, Estimat Glomerular Filtration Rate > 60, Glucose Level 130H, Calcium Level 8.4L, Phosphorus Level 2.5, Magnesium Level 1.5L, Folate 6.2L 05/24/18 08:20: Fibrinogen 95*L, D-Dimer 4.36H Height (Feet): 5 Height (Inches): 9.00 Weight (Pounds): 301 General Appearance: no apparent distress, alert Neck: supple Cardiovascular: normal rate, regular rhythm Respiratory/Chest: lungs clear, normal breath sounds Abdomen: non tender, soft Krzysztof Gonsalves MD May 24, 2018 19:42
--- NOTE | 2018-05-24 19:49 | General Progress Note ---
Assessment/Plan Assessment/Plan Assessment - UGIB - gastritis - N/V - Cirrhosis - alcoholic - portal HTN - no varicies on current EGD - presumed EtOH hepatitis - some recovery in labs noted - coagulopathy - ascites - s/p tap x 2, (+) edema, (+) ascites leak - sepsis, no SBP on paracentesis fluid - hepatic encephalopathy Recommendation: - Increase aldactone to 100/d - will likely need to increase lasix as well - 1 liter fluid restriction - continue lactulose - trantal x 30 days (until 05/31/17) - follow labs - broad abx - PPI - d/c planning --> f/u at transplant center Subjective Allergies: Coded Allergies: No Known Allergies (Unverified , 04/29/18) Subjective Above noted no new complaints (+) ascites leak Objective Last 24 Hour Vital Signs Date Time Temp Pulse Resp B/P (MAP) Pulse Ox O2 Delivery O2 Flow Rate FiO2 05/24/18 17:03 110/68 05/24/18 15:38 97.7 86 20 110/68 (82) 96 97.7 05/24/18 13:29 109/63 05/24/18 12:32 97.3 95 20 109/63 (78) 95 97.3 05/24/18 09:00 Room Air Room Air 05/24/18 08:21 100 116/72 05/24/18 08:21 116/72 05/24/18 08:09 97.1 100 18 116/72 (87) 98 97.1 05/24/18 04:00 98.9 73 18 122/74 (90) 100 98.9 05/24/18 00:00 98.4 82 16 118/65 (82) 100 98.4 05/23/18 21:00 Room Air Room Air 05/23/18 21:00 89 123/67 05/23/18 20:00 98.6 89 16 123/67 (85) 99 98.6 Intake and Output 05/23/18 05/24/18 19:00 07:00 Intake Total 600 ml 1600 ml Output Total 500 ml Balance 600 ml 1100 ml Other 600 ml 1600 ml Other 500 ml # Voids 4 # Bowel Movements 2 2 Laboratory Tests 05/24/18 06:10: White Blood Count 5.8, Red Blood Count 2.82L, Hemoglobin 9.2L, Hematocrit 27.0L , Mean Corpuscular Volume 96, Mean Corpuscular Hemoglobin 32.6H, Mean Corpuscular Hemoglobin Concent 34.0, Red Cell Distribution Width 16.8H, Platelet Count 28L, Mean Platelet Volume 6.7, Neutrophils (%) (Auto) , Lymphocytes (%) (Auto) , Monocytes (%) (Auto) , Eosinophils (%) (Auto) , Basophils (%) (Auto) , Differential Total Cells Counted 100, Neutrophils % ( Manual) 66, Lymphocytes % (Manual) 13L, Monocytes % (Manual) 12H, Eosinophils % (Manual) 9H, Basophils % (Manual) 0, Band Neutrophils 0, Platelet Estimate DecreasedL, Platelet Morphology Normal, Hypochromasia 1+, Anisocytosis 1+, Haptoglobin [Pending], Sodium Level 134L, Potassium Level 3.7, Chloride Level 103, Carbon Dioxide Level 29, Anion Gap 2L, Blood Urea Nitrogen 11, Creatinine 1.3, Estimat Glomerular Filtration Rate > 60, Glucose Level 130H, Calcium Level 8.4L, Phosphorus Level 2.5, Magnesium Level 1.5L, Folate 6.2L 05/24/18 08:20: Fibrinogen 95*L, D-Dimer 4.36H Height (Feet): 5 Height (Inches): 9.00 Weight (Pounds): 301 Objective WDWN WM NCAT supple CTA RRR Soft / Obese (++) edema nonfocal Pierre Suggs MD May 24, 2018 19:49
[2018-05-24 20:00] VITALS: BP 108/59
[2018-05-25] VITALS: BP 109/66
[2018-05-25 07:43] LABS: HEMOGLOBIN 9.1 G/DL (14.2-18.0); MEAN CORPUSCULAR VOLUME 96 FL (80-99); PLATELET COUNT 29 K/UL (150-450); RED BLOOD COUNT 2.83 M/UL (4.70-6.10); RED CELL DISTRIBUTION WIDTH 16.5 % (11.6-14.8); WHITE BLOOD COUNT 6.5 K/UL (4.8-10.8)
[2018-05-25 08:00] VITALS: BP 122/73
[2018-05-25 08:19] LABS: ANION GAP 5 mmol/L (5-15); BLOOD UREA NITROGEN 13 mg/dL (7-18); CALCIUM 8.3 MG/DL (8.5-10.1); CARBON DIOXIDE 29 MMOL/L (21-32); CHLORIDE 101 MMOL/L (98-107); CREATININE 1.3 MG/DL (0.55-1.30); POTASSIUM 3.6 MMOL/L (3.5-5.1); SODIUM 135 MMOL/L (136-145)
[2018-05-25] MEDS: Lactulose 20gm/30ml UDC ORAL SCH ×3 (09:00→18:00)
--- NOTE | 2018-05-25 09:38 | Nephrology Progress Note ---
Assessment/Plan Problem List: (1) Acute kidney failure (2) Acute encephalopathy (3) Cirrhosis of liver (4) Anemia Assessment Septic shock due to Providencia bacteremia - PICC placed and started back on IV antibiotics--on vanco, zosyn, difucan x 5 days per ID--currently day 3 Acute upper GI bleed w/ hematemesis - underwent EGD 05/10/18 which showed no bleeding varices but hemorrhagic gastritis, s/p epinephrine injection, cont PPI , transfuse for hgb<7 or active bleeding. Hgb stable Acute hypoxic respiratory failure - stable respiratory status. Decompensated alcoholic cirrhosis c/b ascites and hepatic encephalopathy - s/p therapeutic paracentesis this admission, continue rifaximin and lactulose. AGNIESZKA due to ATN from sepsis and hypotension - Acute metabolic encephalopathy - resolving, Thrombocytopenia - multifactorial f Coagulopathy - 2/2 cirrhosis, ctm LE ulcerations - surgery following for wound care, no evidence of cellulitis Hypoglycemia - likely in setting of liver failure, ctm Diarrhea - Deconditioning - PT/OT eval, likely needs SNF. SW/Cm consulted. Pt hesitant to d /c to SNF, prefers to go home. Home health ordered Code Status: Full Plan refused IV mag again 05/22 transfused start Coreg off antibiotics increase lactulose dose midodrine PT OT DC planning Subjective ROS Limited/Unobtainable: No Constitutional: Reports: malaise Objective Objective Last 24 Hour Vital Signs Date Time Temp Pulse Resp B/P (MAP) Pulse Ox O2 Delivery O2 Flow Rate FiO2 05/25/18 00:00 97.9 94 18 109/66 (80) 96 97.9 05/24/18 21:00 Room Air Room Air 05/24/18 20:33 93 108/59 05/24/18 20:00 97.9 93 17 108/59 (75) 98 97.9 05/24/18 17:03 110/68 05/24/18 15:38 97.7 86 20 110/68 (82) 96 97.7 05/24/18 13:29 109/63 05/24/18 12:32 97.3 95 20 109/63 (78) 95 97.3 Intake and Output 05/24/18 05/25/18 19:00 07:00 Intake Total 720 ml 990 ml Output Total 925 ml 1068 ml Balance -205 ml -78 ml Intake Oral 720 ml 990 ml Output Urine Total 200 ml 100 ml Emesis 65 ml Other 725 ml 903 ml # Bowel Movements 1 1 Laboratory Tests 05/25/18 05:50: White Blood Count 6.5, Red Blood Count 2.83L, Hemoglobin 9.1L, Hematocrit 27.0L , Mean Corpuscular Volume 96, Mean Corpuscular Hemoglobin 32.1H, Mean Corpuscular Hemoglobin Concent 33.5, Red Cell Distribution Width 16.5H, Platelet Count 29L, Mean Platelet Volume 5.5L, Neutrophils (%) (Auto) , Lymphocytes (%) (Auto) , Monocytes (%) (Auto) , Eosinophils (%) (Auto) , Basophils (%) (Auto) , Neutrophils % (Manual) [Pending], Lymphocytes % (Manual) [Pending], Platelet Estimate [Pending], Platelet Morphology [Pending], Sodium Level 135L, Potassium Level 3.6, Chloride Level 101, Carbon Dioxide Level 29, Anion Gap 5, Blood Urea Nitrogen 13, Creatinine 1.3, Estimat Glomerular Filtration Rate > 60, Glucose Level 148H, Calcium Level 8.3L, Magnesium Level 1.5L Height (Feet): 5 Height (Inches): 9.00 Weight (Pounds): 291 General Appearance: no apparent distress Objective no change Ari Ortega MD May 25, 2018 09:38
[2018-05-25] MEDS: Spironolactone 50mg tab ORAL SCH ×2 (09:46→09:59)
[2018-05-25] MEDS: Magnesium Oxide 400mg tab ORAL SCH ×3 (09:46→18:15)
--- NOTE | 2018-05-25 11:08 | General Progress Note ---
Assessment/Plan Assessment/Plan #. Thrombocytopenia, potentially secondary to septic shock and alcoholic myelosuppression, severe sepsis, RLE cellulitis in addition to PNA, closely monitor, peripheral smear has been reviewed. Baseline is 40-70K. The patient continues to have lactic acidosis, improved at this time and, in addition, imaging reviewed. 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 Coagulopathy with portal hypertension, cirrhosis of liver, large volume ascites, requires paracentesis and requires vitamin K --> vit K prn basis has been given sq --> on abx, vanc others as per ID --> as per ID, appreciate their recs #. Leukocytosis, likely secondary to underlying infection, ulceration seen by surgery, potentially related to underlying sepsis versus other causes such as SBP; but again has been seen by GI team --> s/p paracentesis and prn in the future --> on abx for right lower ext ulceration #. AGNIESZKA, on IV fluids as needed #. Acute encephalopathy --> now better #. Septic shock. now has improved. --> s/p abx, continues #. SNF placement once found --> is homeless Greatly appreciate consultation! Subjective Constitutional: Denies: no symptoms, chills, diaphoresis, fever, malaise, weakness, other HEENT: Denies: no symptoms, eye pain, blurred vision, tearing, double vision, ear pain, ear discharge, nose pain, nose congestion, throat pain, throat swelling, mouth pain, mouth swelling, other Cardiovascular: Denies: no symptoms, chest pain, edema, irregular heart rate, lightheadedness, palpitations, syncope, other Respiratory: Denies: no symptoms, cough, orthopnea, shortness of breath, SOB with excertion, SOB at rest, sputum, stridor, wheezing, other Gastrointestinal/Abdominal: Denies: no symptoms, abdomen distended, abdominal pain, black stools, tarry stools, blood in stool, constipated, diarrhea, difficulty swallowing, nausea, poor appetite, poor fluid intake, rectal bleeding , vomiting, other Genitourinary: Denies: no symptoms, burning, discharge, frequency, flank pain, hematuria, incontinence, pain, urgency, other Endocrine: Denies: no symptoms, excessive sweating, flushing, intolerance to cold, intolerance to heat, increased hunger, increased thirst, increased urine, unexplained weight gain, unexplained weight loss, other Hematologic/Lymphatic: Denies: no symptoms, anemia, easy bleeding, easy bruising, other Allergies: Coded Allergies: No Known Allergies (Unverified , 04/29/18) Subjective labs have been reviewed, plts downtrending today, again ordered fibrinogen and PT/INR Objective Last 24 Hour Vital Signs Date Time Temp Pulse Resp B/P (MAP) Pulse Ox O2 Delivery O2 Flow Rate FiO2 05/25/18 09:58 96 122/73 05/25/18 09:45 122/73 05/25/18 09:00 Room Air Room Air 05/25/18 08:00 98.1 96 18 122/73 (89) 97 98.1 05/25/18 00:00 97.9 94 18 109/66 (80) 96 97.9 05/24/18 21:00 Room Air Room Air 05/24/18 20:33 93 108/59 05/24/18 20:00 97.9 93 17 108/59 (75) 98 97.9 05/24/18 17:03 110/68 05/24/18 15:38 97.7 86 20 110/68 (82) 96 97.7 05/24/18 13:29 109/63 05/24/18 12:32 97.3 95 20 109/63 (78) 95 97.3 Intake and Output 05/24/18 05/25/18 19:00 07:00 Intake Total 720 ml 990 ml Output Total 925 ml 1068 ml Balance -205 ml -78 ml Intake Oral 720 ml 990 ml Output Urine Total 200 ml 100 ml Emesis 65 ml Other 725 ml 903 ml # Bowel Movements 1 1 Laboratory Tests 05/25/18 05:50: White Blood Count 6.5, Red Blood Count 2.83L, Hemoglobin 9.1L, Hematocrit 27.0L , Mean Corpuscular Volume 96, Mean Corpuscular Hemoglobin 32.1H, Mean Corpuscular Hemoglobin Concent 33.5, Red Cell Distribution Width 16.5H, Platelet Count 29L, Mean Platelet Volume 5.5L, Neutrophils (%) (Auto) , Lymphocytes (%) (Auto) , Monocytes (%) (Auto) , Eosinophils (%) (Auto) , Basophils (%) (Auto) , Differential Total Cells Counted 100, Neutrophils % ( Manual) 70, Lymphocytes % (Manual) 11L, Monocytes % (Manual) 16H, Eosinophils % (Manual) 3, Basophils % (Manual) 0, Band Neutrophils 0, Platelet Estimate DecreasedL, Platelet Morphology Normal, Hypochromasia 1+, Anisocytosis 1+, Sodium Level 135L, Potassium Level 3.6, Chloride Level 101, Carbon Dioxide Level 29, Anion Gap 5, Blood Urea Nitrogen 13, Creatinine 1.3, Estimat Glomerular Filtration Rate > 60, Glucose Level 148H, Calcium Level 8.3L, Magnesium Level 1.5L Height (Feet): 5 Height (Inches): 9.00 Weight (Pounds): 291 General Appearance: no apparent distress EENT: normal ENT inspection Neck: normal inspection Cardiovascular: regular rhythm Respiratory/Chest: no accessory muscle use Abdomen: non tender Extremities: non-tender Edema: 1+ Leg (L), 1+ Leg (R) Edema: trace edema Eric Irizarry MD May 25, 2018 11:08
[2018-05-25 12:00] VITALS: BP 106/73
[2018-05-25 16:00] VITALS: BP 117/76
--- NOTE | 2018-05-25 16:06 | General Progress Note ---
Assessment/Plan Assessment/Plan Septic shock due to Providencia bacteremia - completed antibiotics Acute upper GI bleed w/ hematemesis - underwent EGD 05/10/18 which showed no bleeding varices but hemorrhagic gastritis, s/p epinephrine injection, cont PPI and monitor labs Acute hypoxic respiratory failure - stable respiratory status. Decompensated alcoholic cirrhosis c/b ascites and hepatic encephalopathy - s/p therapeutic paracentesis this admission, continue Lasix, Aldactone, Lactulose, rifaximin + Pentoxyfylline 400mg TID per GI. AGNIESZKA due to ATN from sepsis and hypotension - stable renal function, Renal following Acute metabolic encephalopathy - resolved, continue supportive measures Thrombocytopenia - multifactorial from ESLD, bone marrow suppression from septic shock, Stable counts. Coagulopathy - 2/2 cirrhosis, ctm LE ulcerations - surgery following for wound care. Hypoglycemia - likely in setting of liver failure, continue to monitor Diarrhea - resolving, neg stool C. diff Deconditioning - PT/OT Dispo - Awaiting SNF bed Subjective Date patient seen: May 25, 2018 Time patient seen: 10:00 ROS Limited/Unobtainable: No Constitutional: Denies: fever Cardiovascular: Denies: chest pain Respiratory: Denies: shortness of breath Gastrointestinal/Abdominal: Denies: abdominal pain Allergies: Coded Allergies: No Known Allergies (Unverified , 04/29/18) Subjective Medicine followup for multiple medical conditions including septic shock, acute hypoxic respiratory failure, decompensated cirrhosis, AGNIESZKA. No new issues, eager to be discharged. Objective Last 24 Hour Vital Signs Date Time Temp Pulse Resp B/P (MAP) Pulse Ox O2 Delivery O2 Flow Rate FiO2 05/25/18 12:00 97.7 99 18 106/73 (84) 100 97.7 05/25/18 09:58 96 122/73 05/25/18 09:45 122/73 05/25/18 09:00 Room Air Room Air 05/25/18 08:00 98.1 96 18 122/73 (89) 97 98.1 05/25/18 00:00 97.9 94 18 109/66 (80) 96 97.9 05/24/18 21:00 Room Air Room Air 05/24/18 20:33 93 108/59 05/24/18 20:00 97.9 93 17 108/59 (75) 98 97.9 05/24/18 17:03 110/68 Intake and Output 05/24/18 05/25/18 19:00 07:00 Intake Total 720 ml 990 ml Output Total 925 ml 1068 ml Balance -205 ml -78 ml Intake Oral 720 ml 990 ml Output Urine Total 200 ml 100 ml Emesis 65 ml Other 725 ml 903 ml # Bowel Movements 1 1 Laboratory Tests 05/25/18 05:50: White Blood Count 6.5, Red Blood Count 2.83L, Hemoglobin 9.1L, Hematocrit 27.0L , Mean Corpuscular Volume 96, Mean Corpuscular Hemoglobin 32.1H, Mean Corpuscular Hemoglobin Concent 33.5, Red Cell Distribution Width 16.5H, Platelet Count 29L, Mean Platelet Volume 5.5L, Neutrophils (%) (Auto) , Lymphocytes (%) (Auto) , Monocytes (%) (Auto) , Eosinophils (%) (Auto) , Basophils (%) (Auto) , Differential Total Cells Counted 100, Neutrophils % ( Manual) 70, Lymphocytes % (Manual) 11L, Monocytes % (Manual) 16H, Eosinophils % (Manual) 3, Basophils % (Manual) 0, Band Neutrophils 0, Platelet Estimate DecreasedL, Platelet Morphology Normal, Hypochromasia 1+, Anisocytosis 1+, Sodium Level 135L, Potassium Level 3.6, Chloride Level 101, Carbon Dioxide Level 29, Anion Gap 5, Blood Urea Nitrogen 13, Creatinine 1.3, Estimat Glomerular Filtration Rate > 60, Glucose Level 148H, Calcium Level 8.3L, Magnesium Level 1.5L 05/25/18 13:12: Fibrinogen [Pending] Height (Feet): 5 Height (Inches): 9.00 Weight (Pounds): 291 General Appearance: alert Neck: normal inspection Cardiovascular: normal rate, regular rhythm Respiratory/Chest: normal breath sounds, no respiratory distress Abdomen: non tender, soft Krzysztof Gonsalves MD May 25, 2018 16:06
--- NOTE | 2018-05-25 22:23 | General Progress Note ---
Assessment/Plan Assessment/Plan Assessment - UGIB - gastritis - N/V - Cirrhosis - alcoholic - portal HTN - no varicies on current EGD - presumed EtOH hepatitis - some recovery in labs noted - coagulopathy - ascites - s/p tap x 2, (+) edema, (+) ascites leak - sepsis, no SBP on paracentesis fluid - hepatic encephalopathy Recommendation: - continue lasix / aldactone - 1 liter fluid restriction - continue lactulose - trantal x 30 days (until 05/31/17) - follow labs - broad abx - PPI - d/c planning --> f/u at transplant center Subjective Allergies: Coded Allergies: No Known Allergies (Unverified , 04/29/18) Subjective Above noted no new complaints dislikes fluid restriction (+) ascites leak Objective Last 24 Hour Vital Signs Date Time Temp Pulse Resp B/P (MAP) Pulse Ox O2 Delivery O2 Flow Rate FiO2 05/25/18 21:00 Room Air Room Air 05/25/18 18:16 117/76 05/25/18 16:00 97.8 95 18 117/76 (90) 99 97.8 05/25/18 13:00 106/73 05/25/18 12:00 97.7 99 18 106/73 (84) 100 97.7 05/25/18 09:58 96 122/73 05/25/18 09:45 122/73 05/25/18 09:00 Room Air Room Air 05/25/18 08:00 98.1 96 18 122/73 (89) 97 98.1 05/25/18 00:00 97.9 94 18 109/66 (80) 96 97.9 Intake and Output 05/24/18 05/25/18 19:00 07:00 Intake Total 720 ml 990 ml Output Total 925 ml 1068 ml Balance -205 ml -78 ml Intake Oral 720 ml 990 ml Output Urine Total 200 ml 100 ml Emesis 65 ml Other 725 ml 903 ml # Bowel Movements 1 1 Laboratory Tests 05/25/18 05:50: White Blood Count 6.5, Red Blood Count 2.83L, Hemoglobin 9.1L, Hematocrit 27.0L , Mean Corpuscular Volume 96, Mean Corpuscular Hemoglobin 32.1H, Mean Corpuscular Hemoglobin Concent 33.5, Red Cell Distribution Width 16.5H, Platelet Count 29L, Mean Platelet Volume 5.5L, Neutrophils (%) (Auto) , Lymphocytes (%) (Auto) , Monocytes (%) (Auto) , Eosinophils (%) (Auto) , Basophils (%) (Auto) , Differential Total Cells Counted 100, Neutrophils % ( Manual) 70, Lymphocytes % (Manual) 11L, Monocytes % (Manual) 16H, Eosinophils % (Manual) 3, Basophils % (Manual) 0, Band Neutrophils 0, Platelet Estimate DecreasedL, Platelet Morphology Normal, Hypochromasia 1+, Anisocytosis 1+, Sodium Level 135L, Potassium Level 3.6, Chloride Level 101, Carbon Dioxide Level 29, Anion Gap 5, Blood Urea Nitrogen 13, Creatinine 1.3, Estimat Glomerular Filtration Rate > 60, Glucose Level 148H, Calcium Level 8.3L, Magnesium Level 1.5L 05/25/18 13:12: Fibrinogen [Pending] Height (Feet): 5 Height (Inches): 9.00 Weight (Pounds): 291 Objective WDWN WM NCAT supple CTA RRR Soft / Obese (++) edema nonfocal Pierre Suggs MD May 25, 2018 22:23
[2018-05-26] MEDS: Magnesium Oxide 400mg tab ORAL SCH ×3 (09:00→17:39)
[2018-05-26] MEDS: Lactulose 20gm/30ml UDC ORAL SCH ×3 (09:00→16:51)
--- NOTE | 2018-05-26 09:24 | General Progress Note ---
Assessment/Plan Assessment/Plan #. Thrombocytopenia, potentially secondary to sepsis and alcoholic myelosuppression, severe sepsis, RLE cellulitis in addition to PNA, closely monitor, peripheral smear has been reviewed. Baseline is 40-70K. The patient continues to have lactic acidosis, improved at this time and, in addition, imaging reviewed. 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 Coagulopathy with portal hypertension, cirrhosis of liver, large volume ascites, requires paracentesis and requires vitamin K --> vit K prn basis has been given sq --> on abx, vanc others as per ID --> as per ID, appreciate their recs #. Leukocytosis, likely secondary to underlying infection, ulceration seen by surgery, potentially related to underlying sepsis versus other causes such as SBP; but again has been seen by GI team --> s/p paracentesis and prn in the future --> s/p abx #. AGNIESZKA, on IV fluids as needed #. Acute encephalopathy --> now better #. Septic shock. now has improved. --> s/p abx, continues #. SNF placement once found --> is homeless Greatly appreciate consultation! Subjective Constitutional: Denies: no symptoms, chills, diaphoresis, fever, malaise, weakness, other HEENT: Denies: no symptoms, eye pain, blurred vision, tearing, double vision, ear pain, ear discharge, nose pain, nose congestion, throat pain, throat swelling, mouth pain, mouth swelling, other Respiratory: Denies: no symptoms, cough, orthopnea, shortness of breath, SOB with excertion, SOB at rest, sputum, stridor, wheezing, other Gastrointestinal/Abdominal: Denies: no symptoms, abdomen distended, abdominal pain, black stools, tarry stools, blood in stool, constipated, diarrhea, difficulty swallowing, nausea, poor appetite, poor fluid intake, rectal bleeding , vomiting, other Genitourinary: Denies: no symptoms, burning, discharge, frequency, flank pain, hematuria, incontinence, pain, urgency, other Neurologic/Psychiatric: Denies: no symptoms, anxiety, depressed, emotional problems, headache, numbness, paresthesia, pre-existing deficit, seizure, tingling, tremors, weakness, other Endocrine: Denies: no symptoms, excessive sweating, flushing, intolerance to cold, intolerance to heat, increased hunger, increased thirst, increased urine, unexplained weight gain, unexplained weight loss, other Hematologic/Lymphatic: Denies: no symptoms, anemia, easy bleeding, easy bruising, other Allergies: Coded Allergies: No Known Allergies (Unverified , 04/29/18) Subjective labs have been reviewed, plts downtrending today, again ordered fibrinogen and PT/INR AGAIN Objective Last 24 Hour Vital Signs Date Time Temp Pulse Resp B/P (MAP) Pulse Ox O2 Delivery O2 Flow Rate FiO2 05/25/18 21:00 Room Air Room Air 05/25/18 18:16 117/76 05/25/18 16:00 97.8 95 18 117/76 (90) 99 97.8 05/25/18 13:00 106/73 05/25/18 12:00 97.7 99 18 106/73 (84) 100 97.7 05/25/18 09:58 96 122/73 05/25/18 09:45 122/73 Intake and Output 05/25/18 05/26/18 19:00 07:00 Intake Total 650 ml 600 ml Output Total 2215 ml Balance 650 ml -1615 ml Other 650 ml 600 ml Output Urine Total 600 ml Other 1615 ml # Voids 4 2 # Bowel Movements 2 2 Laboratory Tests 05/26/18 04:00: Fibrinogen [Pending] Height (Feet): 5 Height (Inches): 9.00 Weight (Pounds): 288 General Appearance: no apparent distress EENT: normal ENT inspection Neck: normal alignment Cardiovascular: regular rhythm Respiratory/Chest: lungs clear Abdomen: no organomegaly Extremities: no calf tenderness Eric Irizarry MD May 26, 2018 09:24
--- NOTE | 2018-05-26 11:36 | Nephrology Progress Note ---
Assessment/Plan Problem List: (1) Acute kidney failure (2) Acute encephalopathy (3) Cirrhosis of liver (4) Anemia Assessment Septic shock due to Providencia bacteremia - PICC placed and started back on IV antibiotics--on vanco, zosyn, difucan x 5 days per ID--currently day 3 Acute upper GI bleed w/ hematemesis - underwent EGD 05/10/18 which showed no bleeding varices but hemorrhagic gastritis, s/p epinephrine injection, cont PPI , transfuse for hgb<7 or active bleeding. Hgb stable Acute hypoxic respiratory failure - stable respiratory status. Decompensated alcoholic cirrhosis c/b ascites and hepatic encephalopathy - s/p therapeutic paracentesis this admission, continue rifaximin and lactulose. AGNIESZKA due to ATN from sepsis and hypotension - Acute metabolic encephalopathy - resolving, Thrombocytopenia - multifactorial f Coagulopathy - 2/2 cirrhosis, ctm LE ulcerations - surgery following for wound care, no evidence of cellulitis Hypoglycemia - likely in setting of liver failure, ctm Diarrhea - Deconditioning - PT/OT eval, likely needs SNF. SW/Cm consulted. Pt hesitant to d /c to SNF, prefers to go home. Home health ordered Code Status: Full Plan refused IV mag again 05/22 transfused start Coreg off antibiotics increase lactulose dose midodrine PT OT DC planning Subjective ROS Limited/Unobtainable: No Constitutional: Reports: malaise Objective Objective Last 24 Hour Vital Signs Date Time Temp Pulse Resp B/P (MAP) Pulse Ox O2 Delivery O2 Flow Rate FiO2 05/26/18 09:00 Room Air Room Air 05/25/18 21:00 Room Air Room Air 05/25/18 18:16 117/76 05/25/18 16:00 97.8 95 18 117/76 (90) 99 97.8 05/25/18 13:00 106/73 05/25/18 12:00 97.7 99 18 106/73 (84) 100 97.7 Intake and Output 05/25/18 05/26/18 19:00 07:00 Intake Total 650 ml 600 ml Output Total 2215 ml Balance 650 ml -1615 ml Other 650 ml 600 ml Output Urine Total 600 ml Other 1615 ml # Voids 4 2 # Bowel Movements 2 2 Laboratory Tests 05/26/18 04:00: Fibrinogen [Pending] Height (Feet): 5 Height (Inches): 9.00 Weight (Pounds): 288 General Appearance: no apparent distress Objective no change Ari Ortega MD May 26, 2018 11:36
--- NOTE | 2018-05-26 15:07 | General Surgery Progress Note ---
General Surgery-Progress Note Subjective Symptoms: improved Objective Last 24 Hour Vital Signs Date Time Temp Pulse Resp B/P (MAP) Pulse Ox O2 Delivery O2 Flow Rate FiO2 05/26/18 09:00 Room Air Room Air 05/25/18 21:00 Room Air Room Air 05/25/18 18:16 117/76 05/25/18 16:00 97.8 95 18 117/76 (90) 99 97.8 I&O Intake and Output 05/25/18 05/26/18 19:00 07:00 Intake Total 650 ml 600 ml Output Total 2215 ml Balance 650 ml -1615 ml Other 650 ml 600 ml Output Urine Total 600 ml Other 1615 ml # Voids 4 2 # Bowel Movements 2 2 Dressing: other Wound: other Drains: other Cardiovascular: RSR Respiratory: clear Abdomen: soft, non-tender, present bowel sounds Extremities: other Laboratory Tests Test 05/26/18 04:00 Fibrinogen Pending Plan Problems: (1) Wound of lower extremity Assessment & Plan: Multiple venous stasis ulcers of the right lower extremity. Bilateral lower extremity edema Full thickness ulcer noted to lateral right lower extremity (L)7.5cm x (W02.7cm x (D)0.2cm with wound bed grace,(+) maceration. no odor noted .Minimal serous exudate noted Full thickness ulcer noted to medial right lower extremity (L)2.5cm x (W)3cm x ( D)0.4cm with wound bed grace and slightly macerated borders .Minimal serous exudate noted Full thickness ulcer posterior R tibia (L)2.5cm x (W)1cm x (D)0.2cm with wound bed grace ,moist with minimal serous exudate. Hemosiderin noted to bilat lower ext with xeroses. Bilateral heels are dry but blanching. L lower ext noted to be oozing minimal serous exudate but no ulcerations noted. Non-blanching erythema noted wounds present upon admission Wound medial R tibia resolving (L)2.5cm x(W)3cm.Borders intact and flat .No odor noted .Small amt serous non-odorous exudate noted . Wound posterior (L)7.7cm x (W)3.3cm .Edges adherent and flat. periwound dry and flaking. No odor noted. dry scab noted to brodie R tibia. Wound lateral L tibia resolving (L)1.2cm x (W)1cm .Wound bed grace with slightly macerated borders. Xerosis skin to periwound. Small amt non-odorous serous exudate noted. Pt declining SPR mattress to be placed on alternating pressure settings stating he is unable to turn Tx.Plan:Cleanse wounds R lower ext with Saline .Apply Alginate to Wound R lateral and R posterior lower ext. Apply Triad or Calazime paste to immediate borders.Cover with ABD and wrap with soft Kerlix from Base of toes Daily and prn. Cleanse wound lateral L lower ext with Saline. Pat dry .Apply Calazime Paste or Triad to immediate borders of wound.Cover with Biatain drsg daily and prn. Maintain Sacral Foam drsg and change every 7 days and as needed. Discontinue Therahoney gel to wounds. (2) Shock, septic Logan Gracia May 26, 2018 15:07
--- NOTE | 2018-05-26 16:40 | General Progress Note ---
Assessment/Plan Assessment/Plan Septic shock due to Providencia bacteremia - completed antibiotics Acute upper GI bleed w/ hematemesis - underwent EGD 05/10/18 which showed no bleeding varices but hemorrhagic gastritis, s/p epinephrine injection, cont PPI Acute hypoxic respiratory failure - stable respiratory status. Decompensated alcoholic cirrhosis c/b ascites and hepatic encephalopathy - s/p therapeutic paracentesis this admission, continue Lasix, Aldactone, Lactulose, rifaximin + Pentoxyfylline 400mg TID per GI. AGNIESZKA due to ATN from sepsis and hypotension - stable renal function Acute metabolic encephalopathy - resolved, continue supportive measures Thrombocytopenia - multifactorial from ESLD, bone marrow suppression from septic shock, stable counts. Coagulopathy - 2/2 cirrhosis, ctm LE ulcerations - resolved. Hypoglycemia - likely in setting of liver failure, continue to monitor Diarrhea - resolving, neg stool C. diff Deconditioning - PT/OT Dispo - Awaiting SNF bed, spoke with binder caser. Subjective Date patient seen: May 26, 2018 Time patient seen: 13:00 ROS Limited/Unobtainable: No Constitutional: Denies: fever Cardiovascular: Denies: chest pain Respiratory: Denies: cough Gastrointestinal/Abdominal: Denies: abdomen distended, abdominal pain Allergies: Coded Allergies: No Known Allergies (Unverified , 04/29/18) Subjective Medicine followup for multiple medical conditions including septic shock, acute hypoxic respiratory failure, decompensated cirrhosis, AGNIESZKA. No new issues, doing well overall. Objective Last 24 Hour Vital Signs Date Time Temp Pulse Resp B/P (MAP) Pulse Ox O2 Delivery O2 Flow Rate FiO2 05/26/18 09:00 Room Air Room Air 05/25/18 21:00 Room Air Room Air 05/25/18 18:16 117/76 Intake and Output 05/25/18 05/26/18 19:00 07:00 Intake Total 650 ml 600 ml Output Total 2215 ml Balance 650 ml -1615 ml Other 650 ml 600 ml Output Urine Total 600 ml Other 1615 ml # Voids 4 2 # Bowel Movements 2 2 Laboratory Tests 05/26/18 04:00: Fibrinogen [Pending] Height (Feet): 5 Height (Inches): 9.00 Weight (Pounds): 288 General Appearance: no apparent distress, alert Cardiovascular: normal rate, regular rhythm Respiratory/Chest: lungs clear, normal breath sounds Abdomen: non tender, soft Molazadeh-Yazdi,Krzysztof MD May 26, 2018 16:40
--- NOTE | 2018-05-26 21:13 | General Progress Note ---
Assessment/Plan Assessment/Plan Assessment - UGIB - gastritis - N/V - Cirrhosis - alcoholic - portal HTN - no varicies on current EGD - presumed EtOH hepatitis - some recovery in labs noted - coagulopathy - ascites - s/p tap x 2, (+) edema, (+) ascites leak - sepsis, no SBP on paracentesis fluid - hepatic encephalopathy Recommendation: - continue lasix / aldactone - change fluid restriction to 1.5 liter - continue lactulose - trantal x 30 days (until 05/31/17) - follow labs - broad abx - PPI - d/c planning --> f/u at transplant center Subjective Allergies: Coded Allergies: No Known Allergies (Unverified , 04/29/18) Subjective Above noted no new complaints dislikes fluid restriction (+) ascites leak Objective Last 24 Hour Vital Signs Date Time Temp Pulse Resp B/P (MAP) Pulse Ox O2 Delivery O2 Flow Rate FiO2 05/26/18 09:00 Room Air Room Air Intake and Output 05/25/18 05/26/18 19:00 07:00 Intake Total 650 ml 600 ml Output Total 2215 ml Balance 650 ml -1615 ml Other 650 ml 600 ml Output Urine Total 600 ml Other 1615 ml # Voids 4 2 # Bowel Movements 2 2 Laboratory Tests 05/26/18 04:00: Fibrinogen [Pending] Height (Feet): 5 Height (Inches): 9.00 Weight (Pounds): 288 Objective WDWN WM NCAT supple CTA RRR Soft / Obese (++) edema nonfocal Pierre Suggs MD May 26, 2018 21:13
[2018-05-27] MEDS: Lactulose 20gm/30ml UDC ORAL SCH ×3 (09:00→17:14)
[2018-05-27] MEDS: Magnesium Oxide 400mg tab ORAL SCH ×3 (09:00→17:14)
[2018-05-27] MEDS: Spironolactone 50mg tab ORAL SCH (09:00)
--- NOTE | 2018-05-27 13:39 | Nephrology Progress Note ---
Assessment/Plan Problem List: (1) Acute kidney failure (2) Acute encephalopathy (3) Cirrhosis of liver (4) Anemia Assessment Septic shock due to Providencia bacteremia - PICC placed and started back on IV antibiotics--on vanco, zosyn, difucan x 5 days per ID--currently day 3 Acute upper GI bleed w/ hematemesis - underwent EGD 05/10/18 which showed no bleeding varices but hemorrhagic gastritis, s/p epinephrine injection, cont PPI , transfuse for hgb<7 or active bleeding. Hgb stable Acute hypoxic respiratory failure - stable respiratory status. Decompensated alcoholic cirrhosis c/b ascites and hepatic encephalopathy - s/p therapeutic paracentesis this admission, continue rifaximin and lactulose. AGNIESZKA due to ATN from sepsis and hypotension - Acute metabolic encephalopathy - resolving, Thrombocytopenia - multifactorial f Coagulopathy - 2/2 cirrhosis, ctm LE ulcerations - surgery following for wound care, no evidence of cellulitis Hypoglycemia - likely in setting of liver failure, ctm Diarrhea - Deconditioning - PT/OT eval, likely needs SNF. SW/Cm consulted. Pt hesitant to d /c to SNF, prefers to go home. Home health ordered Code Status: Full Plan no labs today refused IV mag again 05/22 transfused start Coreg off antibiotics increase lactulose dose midodrine PT OT DC planning Subjective ROS Limited/Unobtainable: No Constitutional: Reports: malaise, weakness Objective Objective Last 24 Hour Vital Signs Date Time Temp Pulse Resp B/P (MAP) Pulse Ox O2 Delivery O2 Flow Rate FiO2 05/27/18 13:00 117/76 05/27/18 08:45 Room Air Room Air 05/27/18 04:00 17 05/27/18 00:00 18 05/26/18 21:00 Room Air Room Air Intake and Output 05/26/18 05/27/18 19:00 07:00 Intake Total 480 ml 1000 ml Output Total 950 ml 650 ml Balance -470 ml 350 ml Intake Oral 480 ml 1000 ml Output Urine Total 450 ml Other 950 ml 200 ml # Voids 3 # Bowel Movements 1 1 Laboratory Tests 05/27/18 04:00: Fibrinogen [Pending] Height (Feet): 5 Height (Inches): 9.00 Weight (Pounds): 290 General Appearance: no apparent distress Objective no change Ari Ortega MD May 27, 2018 13:39
--- NOTE | 2018-05-27 15:14 | General Progress Note ---
Assessment/Plan Assessment/Plan #. Thrombocytopenia, potentially secondary to sepsis and alcoholic myelosuppression, severe sepsis, RLE cellulitis in addition to PNA, closely monitor, peripheral smear has been reviewed. Baseline is 40-70K. The patient continues to have lactic acidosis, improved at this time and, in addition, imaging reviewed. 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 --> hepatitis and hiv reviewed and is negative --> administer Vit K and ffp and inr is elevated --> Stopped PROTONIX and also other drugs also reviewed as well --> appears baseline in the 50-100k range given cirrhosis --> TRENTAL x 30 more days per gi --> transplant list outpatient --> TODAY ORDERED fibrinogen and PT/INR, if PLT LOWER THAN 20K okay to transfuse --> May consider cryoprecipitate if fibrinogen is <100 (has refused labs) --> cbc reordered (has refused labs) --> Medications have been reviewed no major culprits noted for low platelets --> Appreciate gi recs in regards to treatment #. Coagulopathy with portal hypertension, cirrhosis of liver, large volume ascites, requires paracentesis and requires vitamin K --> vit K prn basis has been given sq --> on abx, vanc others as per ID --> as per ID, appreciate their recs #. Leukocytosis, likely secondary to underlying infection, ulceration seen by surgery, potentially related to underlying sepsis versus other causes such as SBP; but again has been seen by GI team --> s/p paracentesis and prn in the future --> s/p abx #. AGNIESZKA, on IV fluids as needed #. Acute encephalopathy --> now better #. Septic shock. now has improved. --> s/p abx, continues #. SNF placement once found --> is homeless Greatly appreciate consultation! Subjective Constitutional: Denies: no symptoms, chills, diaphoresis, fever, malaise, weakness, other HEENT: Denies: no symptoms, eye pain, blurred vision, tearing, double vision, ear pain, ear discharge, nose pain, nose congestion, throat pain, throat swelling, mouth pain, mouth swelling, other Cardiovascular: Denies: no symptoms, chest pain, edema, irregular heart rate, lightheadedness, palpitations, syncope, other Respiratory: Denies: no symptoms, cough, orthopnea, shortness of breath, SOB with excertion, SOB at rest, sputum, stridor, wheezing, other Genitourinary: Denies: no symptoms, burning, discharge, frequency, flank pain, hematuria, incontinence, pain, urgency, other Neurologic/Psychiatric: Denies: no symptoms, anxiety, depressed, emotional problems, headache, numbness, paresthesia, pre-existing deficit, seizure, tingling, tremors, weakness, other Hematologic/Lymphatic: Denies: no symptoms, anemia, easy bleeding, easy bruising, other Allergies: Coded Allergies: No Known Allergies (Unverified , 04/29/18) Subjective labs reviewed, plts downtrending today, again ordered fibrinogen, cbc Objective Last 24 Hour Vital Signs Date Time Temp Pulse Resp B/P (MAP) Pulse Ox O2 Delivery O2 Flow Rate FiO2 05/27/18 13:00 117/76 05/27/18 08:45 Room Air Room Air 05/27/18 04:00 17 05/27/18 00:00 18 05/26/18 21:00 Room Air Room Air Intake and Output 05/26/18 05/27/18 19:00 07:00 Intake Total 480 ml 1000 ml Output Total 950 ml 650 ml Balance -470 ml 350 ml Intake Oral 480 ml 1000 ml Output Urine Total 450 ml Other 950 ml 200 ml # Voids 3 # Bowel Movements 1 1 Laboratory Tests 05/27/18 04:00: Fibrinogen [Pending] Height (Feet): 5 Height (Inches): 9.00 Weight (Pounds): 290 General Appearance: lethargic EENT: TMs normal Neck: supple Cardiovascular: regular rhythm Respiratory/Chest: normal breath sounds Abdomen: soft Extremities: non-tender Edema: 1+ Leg (L), 1+ Leg (R) Edema: mild edema Neurologic: alert Skin: warm/dry Eric Irizarry MD May 27, 2018 15:14
[2018-05-27] MEDS ORDERED: FUROSEMIDE20 M1 ORAL (15:56)
[2018-05-27] MEDS ORDERED: PROTONIX40 MG ORAL (15:56)
[2018-05-27] MEDS ORDERED: ALDACTONE50 MG ORAL (15:56)
[2018-05-27] MEDS ORDERED: COREG3.125 MG ORAL (15:56)
[2018-05-27] MEDS ORDERED: PRO-AMATINE2.5 MG ORAL (15:56)
--- NOTE | 2018-05-27 16:51 | Discharge Summary ---
Discharge Summary Hospital Course Date of Admission Apr 29, 2018 at 16:28 Date of Discharge 05/27/18 Admitting Diagnosis sepsis ,aloc HPI Jon Avendaño is a 57 year old male who was admitted on Apr 29, 2018 at 16:28 for Sepsis, Altered Level Of Conscious, Gi Bleed Consultations Critical Care GI ID Hematology Psychiatry Procedures Intubation Paracentesis Hospital Course 57 year old man with a history of alcohol cirrhosis, cellulitis/chronic leg wound, coagulopathy, anemia, and hepatic encephalopathy and lactic acidosis who presented from a transitional care facility with altered mental status and hypotension. He was initially admitted to the ICU with septic shock, acute hypoxic respiratory failure, AGNIESZKA, acute metabolic and hepatic encephalopathy. He has been awaiting SNF placement in [place] for a good part of the hospital stay and will be transported via airplane to a facility there. Hospital course broken down by problem below: Septic shock due to Providencia bacteremia - seen by ID, PICC placed and started back on IV antibiotics, s/p vanco and zosyn, s/p zyvox, cipro and diflucan, completed all antibiotics. Acute hypoxic respiratory failure - seen by Pulm, extubated 05/06, no off supplemental oxygen Acute upper GI bleed w/ hematemesis - underwent EGD 05/10/18 which showed no bleeding varices but hemorrhagic gastritis, s/p epinephrine injection, s/p 2U pRBCs on 05/19/18 with stabilization in H&H Decompensated alcoholic cirrhosis c/b ascites and hepatic encephalopathy - seen by GI, s/p multiple therapeutic paracentesis this admission, to continue pentoxifylline, rifaximin and lactulose AGNIESZKA due to ATN from sepsis and hypotension, seen by Nephrology, did not require dialysis, renal function has normalized Acute metabolic and hepatic encephalopathy - resolving, on lactulose as above Thrombocytopenia - multifactorial from ESLD, bone marrow suppression from septic shock, platelet counts stabilized LE ulcerations - seen by Surgery, no evidence of cellulitis at time of discharge , continue local wound care Diarrhea - neg stool C. diff Discharge Discharge Disposition Patient was discharged to SNF Discharge Diagnoses: (1) Shock, septic (2) Acute kidney failure (3) Acute encephalopathy (4) Acute respiratory failure without hypercapnia (5) Thrombocytopenia (6) Wound of lower extremity (7) GI bleeding (8) Anemia Krzysztof Gonsalves MD May 27, 2018 16:50
--- NOTE | 2018-05-27 19:56 | General Progress Note ---
Assessment/Plan Assessment/Plan Assessment - UGIB - gastritis - N/V - Cirrhosis - alcoholic - portal HTN - no varicies on current EGD - presumed EtOH hepatitis - some recovery in labs noted - coagulopathy - ascites - s/p tap x 2, (+) edema, (+) ascites leak - sepsis, no SBP on paracentesis fluid - hepatic encephalopathy Recommendation: - continue lasix / aldactone - Stop fluid restriction - continue lactulose - trantal x 30 days (until 05/31/17) - follow labs - PPI - d/c planning --> f/u at transplant center Subjective Allergies: Coded Allergies: No Known Allergies (Unverified , 04/29/18) Subjective Above noted no new complaints declines fluid restriction understands worse outcome (+) ascites leak Objective Last 24 Hour Vital Signs Date Time Temp Pulse Resp B/P (MAP) Pulse Ox O2 Delivery O2 Flow Rate FiO2 05/27/18 13:00 117/76 05/27/18 08:45 Room Air Room Air 05/27/18 04:00 17 05/27/18 00:00 18 05/26/18 21:00 Room Air Room Air Intake and Output 05/26/18 05/27/18 19:00 07:00 Intake Total 480 ml 1000 ml Output Total 950 ml 650 ml Balance -470 ml 350 ml Intake Oral 480 ml 1000 ml Output Urine Total 450 ml Other 950 ml 200 ml # Voids 3 # Bowel Movements 1 1 Laboratory Tests 05/27/18 04:00: Fibrinogen [Pending] Height (Feet): 5 Height (Inches): 9.00 Weight (Pounds): 290 Objective WDWN WM NCAT supple CTA RRR Soft / Obese (++) edema nonfocal Pierre Suggs MD May 27, 2018 19:56
[2018-05-28] MEDS: Spironolactone 50mg tab ORAL SCH (09:00)
[2018-05-28] MEDS: Magnesium Oxide 400mg tab ORAL SCH ×3 (09:00→17:18)
[2018-05-28] MEDS: Lactulose 20gm/30ml UDC ORAL SCH ×3 (09:00→17:18)
--- NOTE | 2018-05-28 10:04 | Nephrology Progress Note ---
Assessment/Plan Problem List: (1) Acute kidney failure (2) Acute encephalopathy (3) Cirrhosis of liver (4) Anemia Assessment Septic shock due to Providencia bacteremia - PICC placed and started back on IV antibiotics--on vanco, zosyn, difucan x 5 days per ID--currently day 3 Acute upper GI bleed w/ hematemesis - underwent EGD 05/10/18 which showed no bleeding varices but hemorrhagic gastritis, s/p epinephrine injection, cont PPI , transfuse for hgb<7 or active bleeding. Hgb stable Acute hypoxic respiratory failure - stable respiratory status. Decompensated alcoholic cirrhosis c/b ascites and hepatic encephalopathy - s/p therapeutic paracentesis this admission, continue rifaximin and lactulose. AGNIESZKA due to ATN from sepsis and hypotension - Acute metabolic encephalopathy - resolving, Thrombocytopenia - multifactorial f Coagulopathy - 2/2 cirrhosis, ctm LE ulcerations - surgery following for wound care, no evidence of cellulitis Hypoglycemia - likely in setting of liver failure, ctm Diarrhea - Deconditioning - PT/OT eval, likely needs SNF. SW/Cm consulted. Pt hesitant to d /c to SNF, prefers to go home. Home health ordered Code Status: Full Plan no labs today refused IV mag again 05/22 transfused start Coreg off antibiotics increase lactulose dose midodrine PT OT DC planning Subjective ROS Limited/Unobtainable: No Objective Objective Last 24 Hour Vital Signs Date Time Temp Pulse Resp B/P (MAP) Pulse Ox O2 Delivery O2 Flow Rate FiO2 05/27/18 23:45 Room Air Room Air 05/27/18 13:00 117/76 Intake and Output 05/27/18 05/28/18 19:00 07:00 Intake Total 480 ml 800 ml Output Total 400 ml 350 ml Balance 80 ml 450 ml Intake Oral 480 ml 800 ml Output Urine Total 400 ml 350 ml # Voids 1 # Bowel Movements 2 1 Height (Feet): 5 Height (Inches): 9.00 Weight (Pounds): 288 General Appearance: no apparent distress Objective no change Ari Ortega MD May 28, 2018 10:04
[2018-05-28] MEDS ORDERED: traMADol 50mg tab ORAL ONE (14:00)
--- NOTE | 2018-05-28 14:14 | General Progress Note ---
Assessment/Plan Assessment/Plan Assessment - UGIB - gastritis - N/V - Cirrhosis - alcoholic - portal HTN - no varicies on current EGD - presumed EtOH hepatitis - some recovery in labs noted - coagulopathy - ascites - s/p tap x 2, (+) edema, (+) ascites leak - sepsis, no SBP on paracentesis fluid - hepatic encephalopathy - hiccups Recommendation: - continue lasix / aldactone - Stop fluid restriction - continue lactulose - PRN imipramine for hiccups - trantal x 30 days (until 05/31/17) - follow labs - PPI - d/c planning --> f/u at transplant center Subjective Allergies: Coded Allergies: No Known Allergies (Unverified , 04/29/18) Subjective Above noted wants imipramine for hiccups Objective Last 24 Hour Vital Signs Date Time Temp Pulse Resp B/P (MAP) Pulse Ox O2 Delivery O2 Flow Rate FiO2 05/28/18 09:00 Room Air 05/27/18 23:45 Room Air Room Air Intake and Output 05/27/18 05/28/18 19:00 07:00 Intake Total 480 ml 800 ml Output Total 400 ml 350 ml Balance 80 ml 450 ml Intake Oral 480 ml 800 ml Output Urine Total 400 ml 350 ml # Voids 1 # Bowel Movements 2 1 Height (Feet): 5 Height (Inches): 9.00 Weight (Pounds): 288 Objective WDWN WM NCAT supple CTA RRR Soft / Obese (++) edema nonfocal Pierre Suggs MD May 28, 2018 14:14
--- NOTE | 2018-05-28 14:23 | General Progress Note ---
Assessment/Plan Assessment/Plan Septic shock due to Providencia bacteremia - resolved Acute upper GI bleed w/ hematemesis - underwent EGD 05/10/18 which showed no bleeding varices but hemorrhagic gastritis, s/p epinephrine injection, cont PPI Acute hypoxic respiratory failure - resolved Decompensated alcoholic cirrhosis c/b ascites and hepatic encephalopathy - s/p therapeutic paracentesis this admission, continue Lasix, Aldactone, Lactulose, rifaximin + Pentoxyfylline 400mg TID per GI. AGNIESZKA due to ATN from sepsis and hypotension - stable renal function Acute metabolic encephalopathy - resolved, continue supportive measures Thrombocytopenia - multifactorial from ESLD, bone marrow suppression from septic shock, stable counts. Coagulopathy - 2/2 cirrhosis, ctm LE ulcerations - resolved. Hypoglycemia - likely in setting of liver failure, continue to monitor Diarrhea - resolving, neg stool C. diff Hiccups, give one dose of tramadol. Deconditioning - PT/OT Dispo - Awaiting SNF bed, discharge completed. Subjective Date patient seen: May 28, 2018 Time patient seen: 14:00 ROS Limited/Unobtainable: No Cardiovascular: Denies: chest pain Respiratory: Denies: shortness of breath Gastrointestinal/Abdominal: Denies: abdominal pain Allergies: Coded Allergies: No Known Allergies (Unverified , 04/29/18) Subjective Medicine followup for multiple medical conditions including septic shock, acute hypoxic respiratory failure, decompensated cirrhosis, AGNIESZKA. Asking for Tramadol for hiccups. Awaiting placement. Objective Last 24 Hour Vital Signs Date Time Temp Pulse Resp B/P (MAP) Pulse Ox O2 Delivery O2 Flow Rate FiO2 05/28/18 09:00 Room Air 05/27/18 23:45 Room Air Room Air Intake and Output 05/27/18 05/28/18 19:00 07:00 Intake Total 480 ml 800 ml Output Total 400 ml 350 ml Balance 80 ml 450 ml Intake Oral 480 ml 800 ml Output Urine Total 400 ml 350 ml # Voids 1 # Bowel Movements 2 1 Height (Feet): 5 Height (Inches): 9.00 Weight (Pounds): 288 Cardiovascular: normal rate Respiratory/Chest: lungs clear Abdomen: non tender Krzysztof Gonsalves MD May 28, 2018 14:23
[2018-05-28] MEDS: Imipramine 10mg tab ORAL PRN (14:32)
--- NOTE | 2018-05-28 17:29 | General Progress Note ---
Assessment/Plan Status: stable Assessment/Plan #. Thrombocytopenia, potentially secondary to sepsis and alcoholic myelosuppression, severe sepsis, RLE cellulitis in addition to PNA, closely monitor, peripheral smear has been reviewed. Baseline is 40-70K. The patient continues to have lactic acidosis, improved at this time and, in addition, imaging reviewed. 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 Coagulopathy with portal hypertension, cirrhosis of liver, large volume ascites, requires paracentesis and requires vitamin K --> vit K prn basis has been given sq --> on abx, vanc others as per ID --> as per ID, appreciate their recs #. Leukocytosis, likely secondary to underlying infection, ulceration seen by surgery, potentially related to underlying sepsis versus other causes such as SBP; but again has been seen by GI team --> s/p paracentesis and prn in the future --> s/p abx #. AGNIESZKA, on IV fluids as needed #. Acute encephalopathy --> now better #. Septic shock. now has improved. --> s/p abx, continues #. SNF placement once found --> is homeless Greatly appreciate consultation! Subjective Date patient seen: May 28, 2018 ROS Limited/Unobtainable: Yes Allergies: Coded Allergies: No Known Allergies (Unverified , 04/29/18) Subjective Pt noncompliant. DC planning. Objective Last 24 Hour Vital Signs Date Time Temp Pulse Resp B/P (MAP) Pulse Ox O2 Delivery O2 Flow Rate FiO2 05/28/18 15:02 97.8 05/28/18 14:32 97.8 05/28/18 09:00 Room Air 05/27/18 23:45 Room Air Room Air Intake and Output 05/27/18 05/28/18 19:00 07:00 Intake Total 480 ml 800 ml Output Total 400 ml 350 ml Balance 80 ml 450 ml Intake Oral 480 ml 800 ml Output Urine Total 400 ml 350 ml # Voids 1 # Bowel Movements 2 1 Height (Feet): 5 Height (Inches): 9.00 Weight (Pounds): 288 General Appearance: no apparent distress EENT: PERRL/EOMI Neck: normal alignment Eric Irizarry MD May 28, 2018 17:29
[2018-05-28] MEDS ORDERED: traMADol 50mg tab ORAL PRN (18:00)
[2018-05-29 04:00] VITALS: BP 133/74
[2018-05-29] MEDS: Imipramine 10mg tab ORAL PRN (05:00)
[2018-05-29] MEDS: Spironolactone 50mg tab ORAL SCH (08:45)
[2018-05-29] MEDS: Lactulose 20gm/30ml UDC ORAL SCH ×3 (08:45→18:00)
[2018-05-29] MEDS: Magnesium Oxide 400mg tab ORAL SCH ×3 (08:47→18:00)
--- NOTE | 2018-05-29 13:24 | Nephrology Progress Note ---
Assessment/Plan Problem List: (1) Acute kidney failure (2) Acute encephalopathy (3) Cirrhosis of liver (4) Anemia Assessment Septic shock due to Providencia bacteremia - PICC placed and started back on IV antibiotics--on vanco, zosyn, difucan x 5 days per ID--currently day 3 Acute upper GI bleed w/ hematemesis - underwent EGD 05/10/18 which showed no bleeding varices but hemorrhagic gastritis, s/p epinephrine injection, cont PPI , transfuse for hgb<7 or active bleeding. Hgb stable Acute hypoxic respiratory failure - stable respiratory status. Decompensated alcoholic cirrhosis c/b ascites and hepatic encephalopathy - s/p therapeutic paracentesis this admission, continue rifaximin and lactulose. AGNIESZKA due to ATN from sepsis and hypotension - Acute metabolic encephalopathy - resolving, Thrombocytopenia - multifactorial f Coagulopathy - 2/2 cirrhosis, ctm LE ulcerations - surgery following for wound care, no evidence of cellulitis Hypoglycemia - likely in setting of liver failure, ctm Diarrhea - Deconditioning - PT/OT eval, likely needs SNF. SW/Cm consulted. Pt hesitant to d /c to SNF, prefers to go home. Home health ordered Code Status: Full Plan no labs refusing transfused previously start Coreg off antibiotics increase lactulose dose midodrine PT OT DC planning Subjective ROS Limited/Unobtainable: No Objective Objective Last 24 Hour Vital Signs Date Time Temp Pulse Resp B/P (MAP) Pulse Ox O2 Delivery O2 Flow Rate FiO2 05/29/18 10:46 Room Air 05/29/18 09:32 Room Air 05/29/18 08:49 121/72 05/28/18 21:13 Room Air 05/28/18 21:00 99 121/72 05/28/18 15:02 97.8 05/28/18 14:32 97.8 Intake and Output 05/28/18 05/29/18 19:00 07:00 Intake Total 480 ml 240 ml Output Total 200 ml Balance 480 ml 40 ml Intake Oral 480 ml 240 ml Output Urine Total 200 ml Height (Feet): 5 Height (Inches): 9.00 Weight (Pounds): 289 General Appearance: no apparent distress Objective no change Ari Ortega MD May 29, 2018 13:23
--- NOTE | 2018-05-29 13:31 | General Progress Note ---
Assessment/Plan Assessment/Plan Septic shock due to Providencia bacteremia - resolved Acute upper GI bleed w/ hematemesis - underwent EGD 05/10/18 which showed no bleeding varices but hemorrhagic gastritis, s/p epinephrine injection, cont PPI Acute hypoxic respiratory failure - resolved Decompensated alcoholic cirrhosis c/b ascites and hepatic encephalopathy - s/p therapeutic paracentesis this admission, continue Lasix, Aldactone, Lactulose, rifaximin + Pentoxyfylline 400mg TID per GI. AGNIESZKA due to ATN from sepsis and hypotension - stable renal function Acute metabolic encephalopathy - resolved, continue supportive measures Thrombocytopenia - multifactorial from ESLD, bone marrow suppression from septic shock, stable counts. Coagulopathy - 2/2 cirrhosis, ctm LE ulcerations - resolved. Hypoglycemia - likely in setting of liver failure, continue to monitor Diarrhea - resolving, neg stool C. diff Hiccups, give one dose of tramadol. Deconditioning - refusing PT/OT Dispo - Awaiting transportation to SNF in [place], discharge completed. Subjective Date patient seen: May 29, 2018 Time patient seen: 13:45 Cardiovascular: Denies: chest pain Respiratory: Denies: cough Gastrointestinal/Abdominal: Denies: abdomen distended, abdominal pain Allergies: Coded Allergies: No Known Allergies (Unverified , 04/29/18) Subjective Medicine followup for multiple medical conditions including septic shock, acute hypoxic respiratory failure, decompensated cirrhosis, AGNIESZKA. Patient is medically stable for discharge, awaiting transportation to [place] to be arranged with case management and his insurance company. Patient is discouraged about to being able to leave the hospital, not allowing vitals signs, blood draws or taking medications. Objective Last 24 Hour Vital Signs Date Time Temp Pulse Resp B/P (MAP) Pulse Ox O2 Delivery O2 Flow Rate FiO2 05/29/18 10:46 Room Air 05/29/18 09:32 Room Air 05/29/18 08:49 121/72 05/28/18 21:13 Room Air 05/28/18 21:00 99 121/72 05/28/18 15:02 97.8 05/28/18 14:32 97.8 Intake and Output 05/28/18 05/29/18 19:00 07:00 Intake Total 480 ml 240 ml Output Total 200 ml Balance 480 ml 40 ml Intake Oral 480 ml 240 ml Output Urine Total 200 ml Height (Feet): 5 Height (Inches): 9.00 Weight (Pounds): 289 General Appearance: no apparent distress, alert Cardiovascular: normal rate, regular rhythm Respiratory/Chest: lungs clear, normal breath sounds Abdomen: non tender Krzysztof Gonsalves MD May 29, 2018 13:31
--- NOTE | 2018-05-29 15:16 | General Progress Note ---
Assessment/Plan Assessment/Plan Assessment - UGIB - gastritis - N/V - Cirrhosis - alcoholic - portal HTN - no varicies on current EGD - presumed EtOH hepatitis - some recovery in labs noted - coagulopathy - ascites - s/p tap x 2, (+) edema, (+) ascites leak - sepsis, no SBP on paracentesis fluid - hepatic encephalopathy - hiccups Recommendation: - continue lasix / aldactone if patient accepts - Stop fluid restriction per pt request - continue lactulose if patient accepts - PRN imipramine for hiccups - trantal x 30 days (until 05/31/17) - follow labs - PPI - d/c planning --> f/u at transplant center Subjective Allergies: Coded Allergies: No Known Allergies (Unverified , 04/29/18) Subjective Above noted d/w RN refusing meds refusing lab draw Objective Last 24 Hour Vital Signs Date Time Temp Pulse Resp B/P (MAP) Pulse Ox O2 Delivery O2 Flow Rate FiO2 05/29/18 10:46 Room Air 05/29/18 09:32 Room Air 05/29/18 08:49 121/72 05/28/18 21:13 Room Air 05/28/18 21:00 99 121/72 Intake and Output 05/28/18 05/29/18 19:00 07:00 Intake Total 480 ml 240 ml Output Total 200 ml Balance 480 ml 40 ml Intake Oral 480 ml 240 ml Output Urine Total 200 ml Height (Feet): 5 Height (Inches): 9.00 Weight (Pounds): 289 Objective WDWN WM NCAT supple CTA RRR Soft / Obese (++) edema nonfocal Pierer Suggs MD May 29, 2018 15:16
--- NOTE | 2018-05-29 19:53 | General Progress Note ---
Assessment/Plan Status: stable Assessment/Plan #. Thrombocytopenia, potentially secondary to sepsis and alcoholic myelosuppression, severe sepsis, RLE cellulitis in addition to PNA, closely monitor, peripheral smear has been reviewed. Baseline is 40-70K. The patient continues to have lactic acidosis, improved at this time and, in addition, imaging reviewed. 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 Coagulopathy with portal hypertension, cirrhosis of liver, large volume ascites, requires paracentesis and requires vitamin K --> vit K prn basis has been given sq --> on abx, vanc others as per ID --> as per ID, appreciate their recs #. Leukocytosis, likely secondary to underlying infection, ulceration seen by surgery, potentially related to underlying sepsis versus other causes such as SBP; but again has been seen by GI team --> s/p paracentesis and prn in the future --> s/p abx #. AGNIESZKA, on IV fluids as needed #. Acute encephalopathy --> now better #. Septic shock. now has improved. --> s/p abx, continues #. SNF placement once found --> is homeless Greatly appreciate consultation! Subjective Date patient seen: May 29, 2018 ROS Limited/Unobtainable: Yes Allergies: Coded Allergies: No Known Allergies (Unverified , 04/29/18) Subjective Pt awake and alert. Pt refusing VS and labs. Objective Last 24 Hour Vital Signs Date Time Temp Pulse Resp B/P (MAP) Pulse Ox O2 Delivery O2 Flow Rate FiO2 05/29/18 10:46 Room Air 05/29/18 09:32 Room Air 05/29/18 08:49 121/72 05/28/18 21:13 Room Air 05/28/18 21:00 99 121/72 Intake and Output 05/28/18 05/29/18 19:00 07:00 Intake Total 480 ml 240 ml Output Total 200 ml Balance 480 ml 40 ml Intake Oral 480 ml 240 ml Output Urine Total 200 ml Height (Feet): 5 Height (Inches): 9.00 Weight (Pounds): 289 General Appearance: no apparent distress EENT: PERRL/EOMI Neck: normal alignment Eric Irizarry MD May 29, 2018 19:53
[2018-05-30 04:00] VITALS: BP 100/62
--- NOTE | 2018-05-30 07:09 | General Progress Note ---
Assessment/Plan Assessment/Plan #. Thrombocytopenia, potentially secondary to sepsis and alcoholic myelosuppression, severe sepsis, RLE cellulitis in addition to PNA, closely monitor, peripheral smear has been reviewed. Baseline is 40-70K. The patient continues to have lactic acidosis, improved at this time and, in addition, imaging reviewed. 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 --> hepatitis and hiv reviewed and is negative --> administer Vit K and ffp and inr is elevated --> Stopped PROTONIX and also other drugs also reviewed as well --> appears baseline in the 50-100k range given cirrhosis --> TRENTAL x 30 more days per gi to finish 05/31/18 --> transplant list outpatient --> ORDERED fibrinogen and PT/INR, if PLT LOWER THAN 20K okay to transfuse --> May consider cryoprecipitate if fibrinogen is <100 (has refused labs) --> cbc reordered (has refused labs) --> Medications have been reviewed no major culprits noted for low platelets --> Appreciate gi recs in regards to treatment #. Coagulopathy with portal hypertension, cirrhosis of liver, large volume ascites, requires paracentesis and requires vitamin K --> vit K prn basis has been given sq --> on abx, vanc others as per ID --> as per ID, appreciate their recs #. Leukocytosis, likely secondary to underlying infection, ulceration seen by surgery, potentially related to underlying sepsis versus other causes such as SBP; but again has been seen by GI team --> s/p paracentesis and prn in the future --> s/p abx #. AGNIESZKA, on IV fluids as needed #. Ascites s/p 2 paracentesis --> currently ascites is better #. Acute encephalopathy --> now better #. Septic shock. now has improved. --> s/p abx, continues #. SNF placement once found --> is homeless Greatly appreciate consultation! Subjective Constitutional: Denies: no symptoms, chills, diaphoresis, fever, malaise, weakness, other HEENT: Denies: no symptoms, eye pain, blurred vision, tearing, double vision, ear pain, ear discharge, nose pain, nose congestion, throat pain, throat swelling, mouth pain, mouth swelling, other Cardiovascular: Denies: no symptoms, chest pain, edema, irregular heart rate, lightheadedness, palpitations, syncope, other Respiratory: Denies: no symptoms, cough, orthopnea, shortness of breath, SOB with excertion, SOB at rest, sputum, stridor, wheezing, other Gastrointestinal/Abdominal: Denies: no symptoms, abdomen distended, abdominal pain, black stools, tarry stools, blood in stool, constipated, diarrhea, difficulty swallowing, nausea, poor appetite, poor fluid intake, rectal bleeding , vomiting, other Genitourinary: Denies: no symptoms, burning, discharge, frequency, flank pain, hematuria, incontinence, pain, urgency, other Neurologic/Psychiatric: Denies: no symptoms, anxiety, depressed, emotional problems, headache, numbness, paresthesia, pre-existing deficit, seizure, tingling, tremors, weakness, other Endocrine: Denies: no symptoms, excessive sweating, flushing, intolerance to cold, intolerance to heat, increased hunger, increased thirst, increased urine, unexplained weight gain, unexplained weight loss, other Hematologic/Lymphatic: Denies: no symptoms, anemia, easy bleeding, easy bruising, other Allergies: Coded Allergies: No Known Allergies (Unverified , 04/29/18) Subjective REFUSING LABS -- AGAIN REORDERED. Pt awake and alert. Objective Last 24 Hour Vital Signs Date Time Temp Pulse Resp B/P (MAP) Pulse Ox O2 Delivery O2 Flow Rate FiO2 05/30/18 04:00 97.1 87 18 100/62 (75) 97 97.1 05/29/18 21:10 Room Air 05/29/18 10:46 Room Air 05/29/18 09:32 Room Air 05/29/18 08:49 121/72 Intake and Output 05/29/18 05/30/18 19:00 07:00 Intake Total 220 ml 480 ml Output Total 450 ml 600 ml Balance -230 ml -120 ml Intake Oral 220 ml 480 ml Output Urine Total 450 ml 600 ml # Bowel Movements 1 Height (Feet): 5 Height (Inches): 9.00 Weight (Pounds): 288 General Appearance: no apparent distress EENT: normal ENT inspection Neck: normal inspection Cardiovascular: normal rate Respiratory/Chest: normal breath sounds Abdomen: non tender Extremities: non-tender Edema: 1+ Leg (L), 1+ Leg (R) Edema: mild edema Neurologic: alert Skin: warm/dry Eric Irizarry MD May 30, 2018 07:09
[2018-05-30] MEDS: Magnesium Oxide 400mg tab ORAL SCH ×3 (09:00→17:37)
[2018-05-30] MEDS: Lactulose 20gm/30ml UDC ORAL SCH (09:00)
[2018-05-30] MEDS: Spironolactone 50mg tab ORAL SCH (09:00)
--- NOTE | 2018-05-30 11:23 | General Progress Note ---
Assessment/Plan Problem List: (1) Cirrhosis of liver ICD Codes: K74.60 - Unspecified cirrhosis of liver SNOMED: 73742352, 933442943 (2) Hyperbilirubinemia ICD Codes: E80.6 - Other disorders of bilirubin metabolism SNOMED: 58450936 (3) Cellulitis ICD Codes: L03.90 - Cellulitis, unspecified SNOMED: 534969398, 407001209 (4) Thrombocytopenia ICD Codes: D69.6 - Thrombocytopenia, unspecified SNOMED: 388539009 (5) Wound of lower extremity ICD Codes: S81.809A - Unspecified open wound, unspecified lower leg, initial encounter SNOMED: 09082159, 499052794 (6) GI bleeding ICD Codes: K92.2 - Gastrointestinal hemorrhage, unspecified SNOMED: 17902326 (7) Anemia ICD Codes: D64.9 - Anemia, unspecified SNOMED: 210674067 (8) Shock, septic ICD Codes: A41.9 - Sepsis, unspecified organism; R65.21 - Severe sepsis with septic shock SNOMED: 43519768 Status: other - resolved Assessment/Plan Septic shock due to Providencia bacteremia - resolved Acute upper GI bleed w/ hematemesis - underwent EGD 05/10/18 which showed no bleeding varices but hemorrhagic gastritis, s/p epinephrine injection, cont PPI Acute hypoxic respiratory failure - resolved Decompensated alcoholic cirrhosis c/b ascites and hepatic encephalopathy - s/p therapeutic paracentesis this admission, continue Lasix, Aldactone, Lactulose, rifaximin + Pentoxyfylline 400mg TID per GI. AGNIESZKA due to ATN from sepsis and hypotension - stable renal function Acute metabolic encephalopathy - resolved, continue supportive measures Thrombocytopenia - multifactorial from ESLD, bone marrow suppression from septic shock, stable counts. Coagulopathy - 2/2 cirrhosis LE ulcerations - resolved. Hypoglycemia - likely in setting of liver failure, continue to monitor Diarrhea - resolving, neg stool C. diff Hiccups, give one dose of tramadol. Deconditioning - refusing PT/OT Dispo - Awaiting transportation to SNF in [place], discharge completed. Spoke with AGUILA Chavez today who states patient is waiting for ground transportation services to a SNF in [place] Subjective Date patient seen: May 30, 2018 Time patient seen: 09:45 ROS Limited/Unobtainable: No Constitutional: Reports: no symptoms HEENT: Reports: no symptoms Cardiovascular: Reports: no symptoms Respiratory: Reports: cough - +dry cough Gastrointestinal/Abdominal: Reports: abdomen distended Genitourinary: Reports: no symptoms Neurologic/Psychiatric: Reports: no symptoms Endocrine: Reports: no symptoms Hematologic/Lymphatic: Reports: no symptoms Allergies: Coded Allergies: No Known Allergies (Unverified , 04/29/18) All Systems: reviewed and negative except above Subjective Patient currently refusing medications and lab draws because he is frustrated that he is not yet ready for discharge Objective Last 24 Hour Vital Signs Date Time Temp Pulse Resp B/P (MAP) Pulse Ox O2 Delivery O2 Flow Rate FiO2 05/30/18 09:00 87 100/62 05/30/18 09:00 100/62 05/30/18 08:00 Room Air 05/30/18 04:00 97.1 87 18 100/62 (75) 97 97.1 05/29/18 21:10 Room Air Intake and Output 05/29/18 05/30/18 19:00 07:00 Intake Total 220 ml 480 ml Output Total 450 ml 600 ml Balance -230 ml -120 ml Intake Oral 220 ml 480 ml Output Urine Total 450 ml 600 ml # Bowel Movements 1 Height (Feet): 5 Height (Inches): 9.00 Weight (Pounds): 288 General Appearance: WD/WN, no apparent distress, alert EENT: PERRL/EOMI - no icterus Neck: non-tender, normal alignment, supple Cardiovascular: normal peripheral pulses, normal rate, regular rhythm, regularly irregular, no gallop/murmur, no JVD Respiratory/Chest: lungs clear, normal breath sounds, no respiratory distress Abdomen: normal bowel sounds, non tender, soft, distended - abd mod. distended with ascites Extremities: other - patiet has b/l 3+ pitting edema Edema: 3+ Leg (L), 3+ Leg (R) Edema: pitting Neurologic: no motor/sensory deficits, alert, oriented x 3, responsive Skin: normal pigmentation, warm/dry Shalini Prabhakarekruiz MIGUEL May 30, 2018 11:23
--- NOTE | 2018-05-30 15:50 | Nephrology Progress Note ---
Assessment/Plan Problem List: (1) Acute kidney failure (2) Acute encephalopathy (3) Cirrhosis of liver (4) Anemia Assessment Septic shock due to Providencia bacteremia - PICC placed and started back on IV antibiotics--on vanco, zosyn, difucan x 5 days per ID--currently day 3 Acute upper GI bleed w/ hematemesis - underwent EGD 05/10/18 which showed no bleeding varices but hemorrhagic gastritis, s/p epinephrine injection, cont PPI , transfuse for hgb<7 or active bleeding. Hgb stable Acute hypoxic respiratory failure - stable respiratory status. Decompensated alcoholic cirrhosis c/b ascites and hepatic encephalopathy - s/p therapeutic paracentesis this admission, continue rifaximin and lactulose. AGNIESZKA due to ATN from sepsis and hypotension - Acute metabolic encephalopathy - resolving, Thrombocytopenia - multifactorial f Coagulopathy - 2/2 cirrhosis, ctm LE ulcerations - surgery following for wound care, no evidence of cellulitis Hypoglycemia - likely in setting of liver failure, ctm Diarrhea - Deconditioning - PT/OT eval, likely needs SNF. SW/Cm consulted. Pt hesitant to d /c to SNF, prefers to go home. Home health ordered Code Status: Full Plan no labs refusing transfused previously start Coreg off antibiotics increase lactulose dose midodrine PT OT DC planning Subjective ROS Limited/Unobtainable: No Objective Objective Last 24 Hour Vital Signs Date Time Temp Pulse Resp B/P (MAP) Pulse Ox O2 Delivery O2 Flow Rate FiO2 05/30/18 12:27 100/62 05/30/18 09:00 87 100/62 05/30/18 09:00 100/62 05/30/18 08:00 Room Air 05/30/18 04:00 97.1 87 18 100/62 (75) 97 97.1 05/29/18 21:10 Room Air Intake and Output 05/29/18 05/30/18 19:00 07:00 Intake Total 220 ml 480 ml Output Total 450 ml 600 ml Balance -230 ml -120 ml Intake Oral 220 ml 480 ml Output Urine Total 450 ml 600 ml # Bowel Movements 1 Height (Feet): 5 Height (Inches): 9.00 Weight (Pounds): 288 General Appearance: no apparent distress Objective no change Ari Ortega MD May 30, 2018 15:50
--- NOTE | 2018-05-30 21:23 | General Progress Note ---
Assessment/Plan Assessment/Plan Assessment - UGIB - gastritis - N/V - Cirrhosis - alcoholic - portal HTN - no varicies on current EGD - presumed EtOH hepatitis - some recovery in labs noted - coagulopathy - ascites - s/p tap x 2, (+) edema, (+) ascites leak - sepsis, no SBP on paracentesis fluid - hepatic encephalopathy - hiccups Recommendation: - continue lasix / aldactone if patient accepts - Stop fluid restriction per pt request - continue lactulose if patient accepts - PRN imipramine for hiccups - trantal x 30 days (until 05/31/17) - follow labs - PPI - d/c planning --> f/u at transplant center Subjective Allergies: Coded Allergies: No Known Allergies (Unverified , 04/29/18) Subjective Above noted d/w RN refusing meds refusing lab draw Objective Last 24 Hour Vital Signs Date Time Temp Pulse Resp B/P (MAP) Pulse Ox O2 Delivery O2 Flow Rate FiO2 05/30/18 17:34 100/62 05/30/18 12:27 100/62 05/30/18 09:00 87 100/62 05/30/18 09:00 100/62 05/30/18 08:00 Room Air 05/30/18 04:00 97.1 87 18 100/62 (75) 97 97.1 Intake and Output 05/29/18 05/30/18 19:00 07:00 Intake Total 220 ml 480 ml Output Total 450 ml 600 ml Balance -230 ml -120 ml Intake Oral 220 ml 480 ml Output Urine Total 450 ml 600 ml # Bowel Movements 1 Height (Feet): 5 Height (Inches): 9.00 Weight (Pounds): 288 Objective WDWN WM NCAT supple CTA RRR Soft / Obese (++) edema nonfocal Pierre Suggs MD May 30, 2018 21:23
[2018-05-31 04:00] VITALS: BP 122/75
[2018-05-31 08:00] VITALS: BP 122/75
--- NOTE | 2018-05-31 08:08 | General Progress Note ---
Assessment/Plan Assessment/Plan #. Thrombocytopenia, potentially secondary to sepsis and alcoholic myelosuppression, severe sepsis, RLE cellulitis in addition to PNA, closely monitor, peripheral smear has been reviewed. Baseline is 40-70K. The patient continues to have lactic acidosis, improved at this time and, in addition, imaging reviewed. 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 --> hepatitis and hiv reviewed and is negative --> administer Vit K and ffp and inr is elevated --> Stopped PROTONIX and also other drugs also reviewed as well --> appears baseline in the 50-100k range given cirrhosis --> TRENTAL x 30 more days per gi to finish 05/31/18 --> transplant list outpatient --> ORDERED fibrinogen and PT/INR, if PLT LOWER THAN 20K okay to transfuse --> May consider cryoprecipitate if fibrinogen is <100 (has refused labs) --> cbc reordered (has refused labs) --> Medications have been reviewed no major culprits noted for low platelets --> Appreciate gi recs in regards to treatment #. Coagulopathy with portal hypertension, cirrhosis of liver, large volume ascites, requires paracentesis and requires vitamin K --> vit K prn basis has been given sq --> on abx, vanc others as per ID --> as per ID, appreciate their recs #. Leukocytosis, likely secondary to underlying infection, ulceration seen by surgery, potentially related to underlying sepsis versus other causes such as SBP; but again has been seen by GI team --> s/p paracentesis and prn in the future --> s/p abx --> appreciate ID recs #. AGNIESZKA, on IV fluids as needed #. Ascites s/p 2 paracentesis --> currently ascites is better #. Acute encephalopathy --> now better #. Septic shock. now has improved. --> s/p abx, continues #. SNF placement once found --> is homeless Greatly appreciate consultation! Subjective Constitutional: Denies: no symptoms, chills, diaphoresis, fever, malaise, weakness, other HEENT: Denies: no symptoms, eye pain, blurred vision, tearing, double vision, ear pain, ear discharge, nose pain, nose congestion, throat pain, throat swelling, mouth pain, mouth swelling, other Cardiovascular: Denies: no symptoms, chest pain, edema, irregular heart rate, lightheadedness, palpitations, syncope, other Gastrointestinal/Abdominal: Denies: no symptoms, abdomen distended, abdominal pain, black stools, tarry stools, blood in stool, constipated, diarrhea, difficulty swallowing, nausea, poor appetite, poor fluid intake, rectal bleeding , vomiting, other Genitourinary: Denies: no symptoms, burning, discharge, frequency, flank pain, hematuria, incontinence, pain, urgency, other Neurologic/Psychiatric: Denies: no symptoms, anxiety, depressed, emotional problems, headache, numbness, paresthesia, pre-existing deficit, seizure, tingling, tremors, weakness, other Endocrine: Denies: no symptoms, excessive sweating, flushing, intolerance to cold, intolerance to heat, increased hunger, increased thirst, increased urine, unexplained weight gain, unexplained weight loss, other Hematologic/Lymphatic: Denies: no symptoms, anemia, easy bleeding, easy bruising, other Allergies: Coded Allergies: No Known Allergies (Unverified , 04/29/18) Subjective Potential discharge this am, has his luggage in room waiting. Pt awake and alert. Objective Last 24 Hour Vital Signs Date Time Temp Pulse Resp B/P (MAP) Pulse Ox O2 Delivery O2 Flow Rate FiO2 05/31/18 07:20 Room Air 05/31/18 04:00 98.0 96 20 122/75 (91) 100 98.0 05/30/18 21:00 Room Air 05/30/18 17:34 100/62 05/30/18 12:27 100/62 05/30/18 09:00 87 100/62 05/30/18 09:00 100/62 Intake and Output 05/30/18 05/31/18 19:00 07:00 Intake Total 880 ml Output Total 250 ml Balance 630 ml Intake Oral 880 ml Output Urine Total 250 ml # Voids 2 Height (Feet): 5 Height (Inches): 9.00 Weight (Pounds): 288 General Appearance: no apparent distress EENT: normal ENT inspection Neck: supple Cardiovascular: normal rate Respiratory/Chest: normal breath sounds Abdomen: no organomegaly Edema: 1+ Leg (L), 1+ Leg (R) Edema: mild edema Neurologic: no motor/sensory deficits Skin: warm/dry Eric Irizarry MD May 31, 2018 08:08
[2018-05-31] MEDS: Spironolactone 50mg tab ORAL SCH (08:17)
[2018-05-31] MEDS: Magnesium Oxide 400mg tab ORAL SCH (08:18)
[2018-05-31 08:19] VITALS: BP 122/75
--- NOTE | 2018-06-04 23:53 | Physician Query ---
--------- THIS DOCUMENT IS A PERMANENT PART OF THE MEDICAL RECORD --------- PLEASE COMPLETE DOCUMENT BEFORE SIGNING Dear Dr. SINCLAIR Date: __06/04/18_ Crime Data Specialist/CDS Name: BOBBY BLACK, MATEUS Exercise your independent professional judgment when responding to the query. Questions asked do not imply a particular answer is desired or expected. We greatly appreciate your clarification on this issue. CLINICAL DOCUMENTATION STATES: BRONCHOSCOPY WITH BAL PERFORMED ON 05/06/18 Please respond to the following question: PLEASE CLARIFY SITE(S) OF BAL PERFORMED: * LOWER LUNG LOBE - LEFT * LOWER LUNG LOBE - RIGHT * LUNG LINGULA * MIDDLE LUNG LOBE - RIGHT * UPPER LUNG LOBE - LEFT * UPPER LUNG LOBE - RIGHT * LEFT LUNG * RIGHT LUNG * BILATERAL LUNG PHYSICIAN RESPONSE: BILATERAL LUNG 06/13/18 LOIDA CENTENO DATE MTDD
--- NOTE | 2018-06-08 01:30 | Operative Note - Dictated ---
DATE OF OPERATION: 05/10/2018 GASTROENTEROLOGY PROCEDURE REPORT PROCEDURE: Upper gastrointestinal endoscopy. SURGEON: Pierre Suggs M.D. ANESTHESIA: Please see the separate anesthesiologist's notes for details by Dr. Donaldson. PRE-ENDOSCOPIC DIAGNOSIS: Upper gastrointestinal bleeding. POST-ENDOSCOPIC DIAGNOSIS: Erosive gastritis. DESCRIPTION OF PROCEDURE: The procedure, its risks, indications, alternatives, and possible complications were explained and informed consent was obtained. The patient was then sedated in the left lateral decubitus position. The diagnostic upper endoscope was introduced into the oropharynx and advanced to the duodenum without difficulty. The endoscope was then gradually withdrawn and the mucosa was examined carefully. Examination of the upper gastrointestinal mucosa revealed erosive gastritis. No varices were seen. Some blood and blood clots were aspirated from the stomach and 1:10,000 solution of epinephrine was used for hemostasis. The patient tolerated the procedure well and was left to recovery in good condition. COMPLICATIONS: None. RECOMMENDATIONS: 1. Resume oral diet. 2. Follow blood count daily. 3. See progress notes for further recommendations Pierre Suggs M.D. DR: ANTONIO JOB#: [id number] CC: GAUDENCIO
== END 2018-05-31 10:35 | DRG 720 ==
LOC: EDBD 15:30 → EMR 15:50 → ICU 16:28 → EDBEDREQ 17:58 → 2E 05-07 17:00 → 4E 05-12 22:08
PROC: 5A1955Z Respiratory Ventilation, Greater than 96 Consecutive Hours (ICD-10-PCS; principal; 2018-04-29)
PROC: 0BH17EZ Insertion of Endotracheal Airway into Trachea, Via Natural or Artificial Opening (ICD-10-PCS; 2018-04-29)
PROC: 05HM33Z Insertion of Infusion Device into Right Internal Jugular Vein, Percutaneous Approach (ICD-10-PCS; 2018-04-30)
PROC: 0W9G3ZZ Drainage of Peritoneal Cavity, Percutaneous Approach (ICD-10-PCS; 2018-05-03)
PROC: 0B9M8ZX Drainage of Bilateral Lungs, Via Natural or Artificial Opening Endoscopic, Diagnostic (ICD-10-PCS; 2018-05-06)
PROC: 3E0G8GC Introduction of Other Therapeutic Substance into Upper GI, Via Natural or Artificial Opening Endoscopic (ICD-10-PCS; 2018-05-10)
PROC: 0DJ08ZZ Inspection of Upper Intestinal Tract, Via Natural or Artificial Opening Endoscopic (ICD-10-PCS; 2018-05-10)
PROC: 02HV33Z Insertion of Infusion Device into Superior Vena Cava, Percutaneous Approach (ICD-10-PCS; 2018-05-10)
PROC: B518ZZA Fluoroscopy of Superior Vena Cava, Guidance (ICD-10-PCS; 2018-05-10)
PROC: 0W9G3ZZ Drainage of Peritoneal Cavity, Percutaneous Approach (ICD-10-PCS; 2018-05-20)
DX: A41.89 Other specified sepsis (principal); J96.01 Acute respiratory failure with hypoxia; N17.0 Acute kidney failure with tubular necrosis; R65.21 Severe sepsis with septic shock; G93.41 Metabolic encephalopathy; J15.212 Pneumonia due to Methicillin resistant Staphylococcus aureus; K29.71 Gastritis, unspecified, with bleeding; D68.9 Coagulation defect, unspecified; K70.31 Alcoholic cirrhosis of liver with ascites; F10.20 Alcohol dependence, uncomplicated; K70.11 Alcoholic hepatitis with ascites; D64.9 Anemia, unspecified; K70.40 Alcoholic hepatic failure without coma; I87.8 Other specified disorders of veins; L97.819 Non-pressure chronic ulcer of other part of right lower leg with unspecified severity; L03.115 Cellulitis of right lower limb; Z78.1 Physical restraint status; E86.1 Hypovolemia; E16.2 Hypoglycemia, unspecified; K76.6 Portal hypertension; D69.6 Thrombocytopenia, unspecified; R06.6 Hiccough; E80.6 Other disorders of bilirubin metabolism; Z59.0 Homelessness
CPT/HCPCS: 31500; 36415; 36569; 36600; 70450; 71045; 71275; 74018; 74177; 76937; 76942; 80048; 80053; 80061; 80076; 80202; 80307; 81003; 82105; 82140; 82248; 82270; 82533; 82550; 82607; 82728; 82746; 82803; 82962; 82977; 83010; 83036; 83540; 83550; 83605; 83735; 83880; 83930; 83935; 84100; 84300; 84443; 84478; 84484; 84550; 85007; 85025; 85044; 85379; 85384; 85610; 85660; 85730; 86140; 86703; 86705; 86709; 86803; 86850; 86900; 86901; 86920; 86927; 87040; 87070; 87081; 87181; 87205; 87324; 87340; 88104; 89051; 93005; 93306; 93970; 94002; 94003; 94150; 94660; 94760; 99291; 99292; J0171; J2250; J2405; J8499